=== PATIENT | female | born 1945 | race Caucasian/White ===

== ENCOUNTER 2018-08-19 16:12 | Observation (INO) | payer MEDICARE, BC, SELFPAY ==
[2018-08-19] VITALS (9 sets, daily range): BP systolic 114–163; BP diastolic 63–113; PULSE 67–98; RESP 16–19; TEMP 36.6–37.1; O2SAT 98–100; BMI 25.4; BMI 25.9
--- NOTE | 2018-08-19 16:26 | EKG12_ITS ---
Test Reason : CP Blood Pressure : / mmHG Vent. Rate : 087 BPM Atrial Rate : 087 BPM P-R Int : 134 ms QRS Dur : 078 ms QT Int : 368 ms P-R-T Axes : 051 -13 026 degrees QTc Int : 442 ms Normal sinus rhythm Normal ECG Confirmed by MICHELLE ORTIZ, REUBEN ([id number]), editor in chief FLORY BLISS ([id number]) on 08/22/2018 3:02:01 PM Referred By: Venus Birmingham Confirmed By:REUBEN MARTINEZ MD
--- NOTE | 2018-08-19 16:35 | RAD_ITS ---
STUDY: X-RAY CHEST REASON FOR EXAM: Female, 73 years old. Chest pain and cough TECHNIQUE: PA and 2 lateral views of the chest. COMPARISON: 2010 FINDINGS: EKG leads overlie the chest The lungs are clear and expanded. There is no demonstrated pleural abnormality. Normal size heart. Normal mediastinum and kacie. Normal visualized pulmonary arteries. Normal visualized aortic arch and descending thoracic aorta. Normal visualized thoracic spine. Normal visualized ribs, clavicles, and shoulders. There is no demonstrated abnormality of the visualized soft tissue structures of the upper abdomen. RAD/Chest PA and Lateral IMPRESSION: No acute pulmonary process Electronically Signed: Jose Ramon Graham MD at 16:54 EDT , Service support ,
[2018-08-19] MEDS: Aspirin 81 MG TAB.CHEW 324 MG PO (16:53)
[2018-08-19 17:01] LABS: Absolute Lymphocyte Count 1.94 X10^3/ul (0.83-4.51); Absolute Neutrophil Count 8.8 X10^3/uL (2.0-7.7); Basophil# 0.03 X10^3/uL; Basophil% 0.3 % (0-1); Eosinophil# 0.02 X10^3/uL; Eosinophils% 0.2 % (0-5); Hematocrit 45.2 % (37-47); Lymphocyte # 1.94 X10^3/ul (4.0); Lymphocyte % 17.1 % (19-41); Mean Corp Hgb Conc 33.2 g/gl (32-36); Mean Corpuscular Hgb 31.5 pg (27.0-32.0); Mean Platelet Vol. 10.4 fl (6.2-12.0); Monocyte# 0.51 X10^3/uL; Monocyte% 4.5 % (0-10); Neutrophil # 8.83 X10^3/uL (2.7-7.7); Neutrophil % 77.5 % (47-70); Platelet Count 265 K/mm3 (150-450); RBC Distribution Width CV 14.4 % (11.6-14.6); RBC Distribution Width SD 50.2 fl (35.1-43.9); Red Blood Count 4.76 M/mm3 (4.2-5.4); White Blood Count 11.4 K/mm3 (4.4-11.0)
[2018-08-19 17:02] LABS: POSITIVE COUNT NO; POSITIVE DIFFERENTIAL NO; POSITIVE MORPHOLOGY NO
--- NOTE | 2018-08-19 17:15 | ED.DCSUM_ITS ---
- ER Visit Summary Date of Service: 08/19/18 Chief Complaint: Chest pain History of Present Illness: The patient is a 73 F presenting for evaluation secondary to chest pain. 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 Patient reports that she chr onically deals with pain between her shoulder blades. She reports that has been going on for quite some time and she basically ignores it. However, since this morning the patient states that she has had a heaviness in her chest that is associated with worsening with exertion and shortness of breath. Patient does also endorse that she has had a cough recently that is intermittently productive of sputum denies any presence of fevers. She denies any other cardiovascular risk factors, her last stress test was in the distant past, and she denies any DVT or PE risk factors. Review of systems otherwise negative. Physical Examination: Vital signs are within normal limits, patient is afebrile. General: Patient is well-nourished well-developed and in no acute distress. Head: Normocephalic, atraumatic Eyes: Pupils equal round and reactive bilaterally, extra occular motion intact bialterally ENT: Moist mucous membranes Neck: Supple, no lymphadenopathy, no JVD, no meningismus CVS: Heart regular rate and rhythm, no murmurs, rubs or gallops, radial pulses 2+ bilaterally Resp: Respirations nondistressed, lung sounds clear bilaterally Abdomen: Soft, nontender, nondistended, no palpable masses, normal bowel sounds Back: Nontender Extremities: Nontender, atraumatic, active full range of motion, no peripheral edema Skin: warm, no rashes, no petechia Neuro: Alert and oriented x 4, CN 2-12 intact, no lateralizing neurological defecits Psyc: Normal affect Test Results: EKG shows sinus rate of [address] segments, normal T waves, no evidence of acute ischemia or arrhythmia. CBC chemistry and troponin are unremarkable. Chest x-ray by my personal and radiology review is found to be negative. Emergency Department Course and Treatment: Patient presented for evaluation secondary to chest pain. Workup was negative as noted above, she was given aspirin and nitroglycerin in the emergency apartment and did have improvement of her pain. Patient's heart score is 5, I do believe that she requires admission for provocative testing. I discussed this with the hospitalist and the patient will be admitted. Disposition: Admission Impression: 1. Chest pain This note was generated with [employer] dictation software. It may contain incorrect words, spelling, and punctuation that were not noted in review of the chart prior to signing ED Disposition - Plan for ED Patient: Chief Complaint: Chest Pain Referrals: Kasey Bashir MD [Primary Care Provider] -
[2018-08-19 17:17] LABS: Anion Gap 8 (5-15); BUN 19 mg/dL (7-18); BUN/Creat Ratio 19.2 RATIO (10-20); Calcium,Total 8.8 mg/dL (8.5-10.1); Chloride 108 mmol/L (98-107); Creatinine, Serum 0.99 mg/dL (0.55-1.02); EST Glomerular Filtration Rate 59 mL/min (>60); Est Glom Filt Rate - Afr Amer 71 mL/min (>60); Estimated Creatinine Clearance 47.03 ml/min; Glucose 97 mg/dL (74-106); Potassium 4.1 mmol/L (3.5-5.1); Sodium Level 141 mmol/L (136-145)
--- NOTE | 2018-08-19 17:45 | HP.PCM_ITS ---
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 She is admitted by the ED on 08/19/2018 with complaint of chest pain was started on day of admission. Pain was heavy type pressure in her chest, left-sided, rated 6 out of 10, nonradiating, with no aggravating or relieving factors. It was worsened by exertion was no relieved by rest. She denied any associated increased palpitations, diaphoresis or shortness of breath. She has not had pain like this in the past but says she has been experiencing pain between his shoulder blades for quite a while, cannot quantify exactly how long it has been going on for. 12 point review of systems is otherwise negative. In the ED, vitals were temperature of 98.7 Fahrenheit, blood pressure 114/103, pulse rate of 86 and respiratory rate of 16. She was saturating at 100% on room air. BMP was unremarkable and CBC was unremarkable for WBC of 11.4 which is likely due to steroid she was taking. Initial troponin was negative. Chest x-ray showed no acute cardiopulmonary process. She is been admitted to be managed for chest pain rule out. 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 History of pituitary tumor (Chronic) with Resection Glucocorticoid deficiency (Chronic) History of gastroesophageal reflux (GERD) (Chronic) Benign essential hypertension (Chronic) Allergies Penicillins [PCN] Adverse Reaction (Verified 08/19/18 16:15) Hives rofecoxib [From Vioxx] Adverse Reaction (Verified 08/19/18 16:15) Nausea/Vom/Diarrhea Home Medications: Ambulatory Orders Medication Instructions Recorded Calcium Carbonate [Calcium] 600 mg PO DAILY 08/19/18 Cholecalciferol (Vitamin D3) 2,000 unit PO DAILY 08/19/18 [D3-2000] Cyanocobalamin 1 tab PO DAILY 08/19/18 Enalapril Maleate [Vasotec] 1.25 mg PO DAILY 08/19/18 Levothyroxine Sodium [Levoxyl] 12.5 mcg PO DAILY 08/19/18 Multivit-Min/Iron/Folic/Lutein 1 each PO DAILY 08/19/18 [Centrum Silver Women Tablet] Omeprazole 20 mg PO PRN PRN 08/19/18 Prednisone 4 mg PO DAILY 08/19/18 Raloxifene HCl [Evista] 60 mg PO DAILY 08/19/18 Surgical History: appendectomy, - - pituitary surgery Psychiatric History: No pertinent psych hx COMMODITY SPECIALIST History: No pertinent COMMODITY SPECIALIST history Lives: Spouse/ Significant Other Smoking Status: Never smoker Alcohol: None Drugs: None - *Family History Maternal History Items: Hypertension Paternal History Items: No pertinent history Review of Systems Constitutional: Denies: Chills, Fever, Malaise, Weakness, Weight Change Eyes: Denies: Blurred vision HEENT: Denies: Head Aches, Sinus Congestion, Sinus Drainage Cardiovascular: Reports: Chest Pain, Chest Pressure, Edema. Denies: Chest Tightness, Orthopnea, Palpitations, Paroxysmal Noc. Dyspnea, Syncope Respiratory: Denies: Cough, Shortness of Breath, Shortness of breath at rest, Sputum production Gastrointestinal: Denies: Abdominal Pain, Constipation, Diarrhea, Nausea, Vomiting Genitourinary: Denies: Dysuria Musculoskeletal: Denies: Joint Pain, Joint Tenderness Skin: Denies: Rash, Wounds Neurological: Denies: Numbness, Tingling, Focal weakness Psychiatric: Denies: Anxiety, Depression, Homicidal Ideations, Suicidal Ideations Hematologic/ Lymphatic: Denies: Easy Bruising, Easy Bleeding VTE Information - Inpt Only VTE Present on Admission: No VTE Mechan Device Prophylaxis: None VTE Pharm Prophylaxis ordered?: Yes Patient Problems: Active and Suspected Problems Chest pain (Acute) - Physical Exam General: Alert, Oriented x3, Cooperative, No apparent distress HEENT: Atraumatic, PERRLA, EOMI, Normocephalic Oral: Moist Mucosa Neck: Supple, No JVD, Negative Carotid Bruits Lungs: Clear to auscultation, Normal air movement, No rhonchi, No wheeze Cardiovascular: Regular rate, Regular Rhythm, Normal S1, Normal S2, No murmurs Abdomen: Bowel Sounds Present, Soft, Non Tender, Non-Distended, No Hepato- splenomegaly Extremities: No clubbing, No cyanosis, No edema, Capillary Refill Less than 3 Seconds Skin: No rashes, No breakdown Musculoskeletal: No Tenderness to Palpation of Joints or Extremities Lymphatic: No Cervical, Supraclavicular, or Inguinal Adenopathy Neurological: Cranial nerves II-XII grossly intact, Neuro grossly intact, Motor Exam 5/5 strength throughout Psych/Mental Status: Normal Affect, Appropriate, Alert and oriented to time, place, person, mood and affect Vital Signs Temp Pulse Resp BP Pulse Ox 98.7 F 86 16 114/103 H 100 08/19/18 16:12 08/19/18 17:03 08/19/18 17:03 08/19/18 17:03 08/19/18 16:26 Oxygen Delivery Method Room Air Weight: 126 lb Body Mass Index (BMI) 25.4 Laboratory Tests Past 24 Hrs 08/19/18 08/19/18 16:30 16:30 WBC 11.4 H RBC 4.76 Hgb 15.0 Hct 45.2 MCV 95.0 MCH 31.5 MCHC 33.2 RDW 14.4 RDW Differential 50.2 H Plt Count 265 MPV 10.4 Immature Gran % (Auto) 0.400 Neut % (Auto) 77.5 H Lymph % (Auto) 17.1 L [place] % (Auto) 4.5 Eos % (Auto) 0.2 Baso % (Auto) 0.3 Absolute Neuts (auto) 8.8 H Absolute Lymphs (auto) 1.94 Total Counted Not Reportable Sodium 141 Potassium 4.1 Chloride 108 H Carbon Dioxide 25.0 Anion Gap 8 BUN 19 H Creatinine 0.99 Estim Creat Clear Calc 47.03 Est GFR (MDRD) Af Amer 71 Est GFR (MDRD) Non-Af 59 L BUN/Creatinine Ratio 19.2 Glucose 97 Calcium 8.8 Troponin I < 0.015 Diagnostic Data Chest X-Ray 08/19/18 16:35 IMPRESSION: No acute pulmonary process Electronically Signed: Jose Ramon Graham MD at 16:54 EDT , Service support , Assessment/Plan All Active Problems Chest pain (Acute) 23-year-old female presenting with a complaint of chest pain of one days duration. 1. Atypical chest pain * no significant cardiac history * EKG negative. Troponin x 1 negative * admit to PCU with telemetry * aspirin 81mg daily. * check lipid panel and A1C * SL nitroglycerin prn * cycle troponin * stress echocardiogram in the morning 2. Hypertension * poorly controlled * on enalapril 1.25mg daily; zulema monitor BP and adjust as needed * 3. 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 * on vitamin D3 and raloxifene due to osteoporosis * GERD: on omeprazole DVT prophylaxis: heparin GI prophylaxis: PPI CODE STATUS: Full code. * Patient counseled extensively about different types of CODE STATUS and counseled about different between full code, DNR CCA and DNR CCA patient elects to be full code. Total xxgo-to-[id number] time 17 minutes. Code Visit OBSV E&M: 48687 Initial observation care L2 Procedures: 15603 Advncd Care Plan 30 Min
--- NOTE | 2018-08-19 18:15 | EKG12_ITS ---
Test Reason : ADMIT Blood Pressure : / mmHG Vent. Rate : 069 BPM Atrial Rate : 069 BPM P-R Int : 140 ms QRS Dur : 078 ms QT Int : 404 ms P-R-T Axes : 060 -04 035 degrees QTc Int : 432 ms Normal sinus rhythm Normal ECG When compared with ECG of 19-AUG-2018 16:19, MANUAL COMPARISON REQUIRED, DATA IS UNCONFIRMED Confirmed by AKBAR ORTIZ, ROBIN ([id number]), make up editor FLORY BLISS ([id number]) on 08/23/2018 2:54:19 PM Referred By: Venus Birmingham Confirmed By:ROBIN WEBBER MD
[2018-08-19 22:48] LABS: Hemoglobin A1c 5.7 % (4.2-6.3)
[2018-08-20 03:00] VITALS: PULSE 67
[2018-08-20 03:48] VITALS: O2SAT 98
[2018-08-20 03:50] VITALS: BP 143/62; PULSE 73; RESP 16; TEMP 36.5; O2SAT 98
[2018-08-20] MEDS: Levothyroxine 25 MCG TABLET 12.5 MCG PO (05:36)
[2018-08-20] MEDS: Aspirin 81 MG TAB.CHEW PO (05:36)
--- NOTE | 2018-08-20 05:55 | EKG12_ITS ---
Test Reason : AM EKG Blood Pressure : / mmHG Vent. Rate : 067 BPM Atrial Rate : 067 BPM P-R Int : 152 ms QRS Dur : 072 ms QT Int : 410 ms P-R-T Axes : 057 -10 040 degrees QTc Int : 433 ms Normal sinus rhythm Normal ECG When compared with ECG of 19-AUG-2018 18:29, MANUAL COMPARISON REQUIRED, DATA IS UNCONFIRMED Confirmed by AKBAR ORTIZ, ROBIN ([id number]), commissioning editor FLORY BLISS ([id number]) on 08/23/2018 2:51:23 PM Referred By: Venus Birmingham Confirmed By:ROBIN WEBBER MD
[2018-08-20 06:34] LABS: Absolute Lymphocyte Count 2.49 X10^3/ul (0.83-4.51); Absolute Neutrophil Count 5.7 X10^3/uL (2.0-7.7); Basophil# 0.04 X10^3/uL; Basophil% 0.4 % (0-1); Eosinophil# 0.17 X10^3/uL; Eosinophils% 1.9 % (0-5); Hematocrit 42.7 % (37-47); Hemoglobin 14.3 g/dl (12.0-15.0); Lymphocyte # 2.49 X10^3/ul (4.0); Lymphocyte % 27.2 % (19-41); Mean Corp Hgb Conc 33.5 g/gl (32-36); Mean Corpuscular Hgb 31.9 pg (27.0-32.0); Mean Corpuscular Volume 95.3 fL (81-99); Mean Platelet Vol. 10.5 fl (6.2-12.0); Monocyte% 7.7 % (0-10); Neutrophil # 5.68 X10^3/uL (2.7-7.7); Platelet Count 238 K/mm3 (150-450); RBC Distribution Width CV 14.6 % (11.6-14.6); RBC Distribution Width SD 49.3 fl (35.1-43.9); Red Blood Count 4.48 M/mm3 (4.2-5.4); White Blood Count 9.2 K/mm3 (4.4-11.0)
[2018-08-20 06:35] LABS: Prothrombin Time (Protime)PT. 13.4 SECONDS (11.7-14.9)
[2018-08-20 06:36] LABS: Partial Thromboplast Time 25.4 Seconds (24.1-36.2)
[2018-08-20 06:43] LABS: POSITIVE COUNT NO; POSITIVE DIFFERENTIAL NO; POSITIVE MORPHOLOGY NO
[2018-08-20 06:51] LABS: Anion Gap 5 (5-15); BUN 15 mg/dL (7-18); BUN/Creat Ratio 18.7 RATIO (10-20); Calcium,Total 8.4 mg/dL (8.5-10.1); Chloride 111 mmol/L (98-107); Cholesterol 161 mg/dL (200); EST Glomerular Filtration Rate 75 mL/min (>60); Est Glom Filt Rate - Afr Amer 91 mL/min (>60); Estimated Creatinine Clearance 59.26 ml/min; Glucose 76 mg/dL (74-106); High Density Lipoprotein 56 mg/dL; Potassium 3.7 mmol/L (3.5-5.1); Sodium Level 144 mmol/L (136-145); Triglycerides 86 mg/dL; Very Low Density Lipoprotein 17 mg/dL (5-40)
[2018-08-20 07:06] VITALS: PULSE 60
[2018-08-20] MEDS: predniSONE 1 MG Tablet 4 MG PO (08:26)
[2018-08-20] MEDS: Raloxifene HCl 60 MG Tablet PO (08:26)
--- NOTE | 2018-08-20 09:50 | NURSING ---
pt declines having vital signs taken
--- NOTE | 2018-08-20 11:06 | DCINST_ITS ---
- Discharge Diagnoses Current Active Problems: Current Active and Chronic Problems Chest pain (Acute) You will use the following diet at home:: Cardiac Your food should be the consistency of: Regular Your liquids should be the consistency of: Regular/Thin Discharge Activity: Return to Normal Activity Weight Bearing Status: Weight bearing as tolerated Call your doctor if you observe: Chest pain Instructions: What Is Angina?, Fast-Acting Nitroglycerin Additional Instructions: To have stress echocardiogram on 08/22/18. Patient to call stress test lab at [facility] for time. Allergies/Adverse Reactions: Allergies Penicillins [PCN] Allergy (Verified 08/19/18 18:16) Hives rofecoxib [From Vioxx] Adverse Reaction (Verified 08/19/18 16:15) Nausea/Vom/Diarrhea Medications to take at Discharge Calcium Carbonate [Calcium] 600 mg PO DAILY 08/19/18 Cholecalciferol (Vitamin D3) [D3-2000] 2,000 unit PO DAILY 08/19/18 Cyanocobalamin 1 tab PO DAILY 08/19/18 Enalapril Maleate [Vasotec] 1.25 mg PO DAILY 08/19/18 Levothyroxine Sodium [Levoxyl] 12.5 mcg PO DAILY 08/19/18 Multivit-Min/Iron/Folic/Lutein [Centrum Silver Women Tablet] 1 each PO DAILY 08/19/18 Omeprazole 20 mg PO PRN PRN 08/19/18 Prednisone 4 mg PO DAILY 08/19/18 Raloxifene HCl [Evista] 60 mg PO DAILY 08/19/18 Aspirin [Aspirin EC] 81 mg PO DAILY #30 tablet. 08/20/18 Nitroglycerin 0.4 mg SL PRN PRN #30 tab.subl 08/20/18 The following prescriptions were given: Aspirin [Aspirin EC] 81 mg PO DAILY #30 tablet. Nitroglycerin 0.4 mg SL PRN PRN #30 tab.subl PRN Reason: Cardiac/Chest Pain Orders to be completed after discharge: Stress Test Echo W/Contrast [ECHO] Time Frame: 08/22/18, Location: None Selected Primary Care Physician: Kasey Bashir MD [Primary Care Provider] - Please follow up with your Primary Care Physician in: one week Test Results: Test results from this visit will be discussed in further detail at your follow- up appointment, if applicable.
--- NOTE | 2018-08-20 11:11 | PCM.DC.SUM ---
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 She was admitted by the ED on 08/19/2018 with complaint of chest pain which started on day of admission. It was pressure-like, left-sided, radiated 10 out of 10, nonradiating with no aggravating or relieving factors. Chest x-ray showed a acute cardiopulmonary process and EKG showed no acute ST changes. She was admitted and managed for chest pain. Patient was due to have a stress echocardiogram on 08/20/2018. However since was a weekend, due to unforeseen circumstances the stress echo is when the been done that day. Patient insisted on being discharged home I did not want to stay until 08/22/2018 for stress echo to be done. Patient was discharged home on 08/20/2018 with a prescription for p.o. aspirin 81 mg daily and sublingual nitroglycerin as needed. She was counseled to report to the ED if chest pain recurred and did not resolve with aspirin 2. Patient was given a prescription for stress echocardiogram to be done on 08/22/2018. She is to call the stress lab at [facility] for an appointment on 08/22/2018. Patient seen and examined prior to discharge. She had no complaints. Chest pain did occur overnight and states she just had a mild pain between his shoulder blades which is chronic. She denied any fever chills, any cough or chest pain, shortness of breath, abdominal pain, any diarrhea vomiting. 12 point review of systems is otherwise negative. Labs and vitals reviewed. On examination Vitals: Vital Signs Height 4 ft 11 in Weight: 128 lb 4.944 oz Weight in Pounds 128.3 lbs Pulse Ox 98 Temperature 97.7 F Pulse Rate 60 Respiratory Rate 16 Blood Pressure [2nd BP] 163/75 Blood Pressure 143/62 Blood Pressure Position [2nd Semi-Fowlers BP] Blood Pressure Position Semi-Fowlers General: Alert, Oriented x3, Cooperative, No apparent distress HEENT: Atraumatic, PERRLA, EOMI, Normocephalic Oral: Moist Mucosa Neck: Supple, No JVD, Negative Carotid Bruits Lungs: Clear to auscultation, Normal air movement, No rhonchi, No wheeze Cardiovascular: Regular rate, Regular Rhythm, Normal S1, Normal S2, No murmurs Abdomen: Bowel Sounds Present, Soft, Non Tender, Non-Distended, No Hepato-splenomegaly Extremities: No clubbing, No cyanosis, No edema, Capillary Refill Less than 3 Seconds Skin: No rashes, No breakdown Musculoskeletal: No Tenderness to Palpation of Joints or Extremities Lymphatic: No Cervical, Supraclavicular, or Inguinal Adenopathy Neurological: Cranial nerves II-XII grossly intact, Neuro grossly intact, Motor Exam 5/5 strength throughout Psych/Mental Status: Normal Affect, Appropriate, Alert and oriented to time, place, person, mood and affect Plan as stated above. She is to follow up with her PCP in one week and do the stress echocardiogram on 08/22/18. [] Discharge Diet: Low fat/ Low Cholesterol Discharge Activity: Return to Normal Activity Weight Bearing Status: Weight bearing as tolerated Call your doctor if you observe: Chest pain Home Medications: Medications to take at Discharge Calcium Carbonate [Calcium] 600 mg PO DAILY 08/19/18 Cholecalciferol (Vitamin D3) [D3-2000] 2,000 unit PO DAILY 08/19/18 Cyanocobalamin 1 tab PO DAILY 08/19/18 Enalapril Maleate [Vasotec] 1.25 mg PO DAILY 08/19/18 Levothyroxine Sodium [Levoxyl] 12.5 mcg PO DAILY 08/19/18 Multivit-Min/Iron/Folic/Lutein [Centrum Silver Women Tablet] 1 each PO DAILY 08/19/18 Omeprazole 20 mg PO PRN PRN 08/19/18 Prednisone 4 mg PO DAILY 08/19/18 Raloxifene HCl [Evista] 60 mg PO DAILY 08/19/18 Aspirin [Aspirin EC] 81 mg PO DAILY #30 tablet. 08/20/18 Nitroglycerin 0.4 mg SL PRN PRN #30 tab.subl 08/20/18 Following Prescrptions Were Given to Patient: Aspirin [Aspirin EC] 81 mg PO DAILY #30 tablet. Nitroglycerin 0.4 mg SL PRN PRN #30 tab.subl PRN Reason: Cardiac/Chest Pain Other Amb Orders: Stress Test Echo W/Contrast [ECHO] Time Frame: 08/22/18, Location: None Selected Primary Care Physician: Kasey Bashir MD [Primary Care Provider] - Please follow up with your Primary Care Physician in: one week Patient Instructions: What Is Angina?, Fast-Acting Nitroglycerin Disposition: Home Minutes spent on discharge:: 35 Patient Condition:: Stable Medical Necessity - Tobacco Use Smoking Status: Never smoker Meaningful Use Info Meaningful Use Diagnoses (Choose all that apply): None applicable Code Visit Inpatient E&M: 88167 Disch Hosp
== END 2018-08-20 11:10 | disposition home or self-care (01) ==
LOC: ED 17:11 → PCU 17:59
PROVIDERS: Admitting Provider Student in an Organized Health Care Education/Training Program; Emergency Provider Emergency Medicine; Family Provider Internal Medicine; PCP Internal Medicine; Referring Provider Student in an Organized Health Care Education/Training Program; Visit Provider Student in an Organized Health Care Education/Training Program
DX: R07.89 Other chest pain (principal); E23.0 Hypopituitarism; K21.9 Gastro-esophageal reflux disease without esophagitis; I10 Essential (primary) hypertension; Z79.899 Other long term (current) drug therapy
CPT/HCPCS: 36415; 71046; 80048; 80061; 83036; 84484; 85025; 85610; 85730; 93005; 99218; 99283; G0378

== ENCOUNTER → 2018-08-23 12:28 | Outpatient (CLI) | payer MEDICARE, BC, SELFPAY ==
--- NOTE | 2018-08-23 12:31 | STE_ITS ---
Reason For Study: CHEST PAIN Stress Results Protocol: Stress Echocardiogram Maximum Predicted HR: 149 bpm Target HR: 127 bpm% Maximum Pr edicted HR: 109 % DurationHeart Rate Stage (mm:ss) (bpm) BP BASELINE 75 158/78 ALEXA PROTOCOL- STAGE 1 3:00 12 9 150/80 ALEXA PROTOCOL- STAGE 2 3:00 16 2 154/82 RECOVERY 99 136/78 Stress Duration: 6:00 mm:ss Maximum Stress HR: 162 bpmM ETS: 7 Baseline Echocardiogram Findings Stress Echo Wall motion Data Resting WMIntermediate WMStress WM Resting Wall Motion Wall Motion Stress All segments Normal. All segments Hyperkinetic. Ejection Fraction 60 %. Ejection Fraction 75 %. Stress Results Heart rate response: appropriate Blood pressure response: resting hypertension - appropriate response Arrhythmias: none Functional capacity: good Stopped secondary to: dyspnea. EKG Data Baseline ECG: NSR. Exercise ECG: no obvious ECG changes. Symptoms with Stress No c/o chest discomfort with exercise / recovery. Interpretation Summary Negative (adequate) Stress Echocardiogram Negative (adequate) ECG ETT Ordering Physician: Kasey Bashir Referring Physician: Kasey Bashir Performed By: Mago He RDCS
== END ==
PROVIDERS: Family Provider Internal Medicine; PCP Internal Medicine; Referring Provider Internal Medicine; Visit Provider Internal Medicine
DX: R07.9 Chest pain, unspecified (principal); I10 Essential (primary) hypertension; E78.5 Hyperlipidemia, unspecified
CPT/HCPCS: 93017; 93350

== ENCOUNTER 2018-11-12 08:33 | Emergency (ER) | payer MEDICARE, BC, SELFPAY ==
[2018-11-12 08:36] VITALS: BP 135/79; PULSE 89; RESP 16; TEMP 36.5; O2SAT 100; BMI 25.6
--- NOTE | 2018-11-12 08:57 | ED.DCSUM_ITS ---
- ER Visit Summary Date of Service: 11/12/18 Chief Complaint: [Fever, rash] History of Present Illness: The patient is a 73 F [presents the emergency department with multiple complaints. Patient states that she started with fever 3 nights ago as well as chills and thought she was coming down with the flu. Patient just had an occasional cough. Patient noticed that yesterday she developed a pruritic rash. Patient seen at urgent care this morning and referred to the emergency department. Patient is complaining of feeling woozy at times and weak. Patient had low-grade fever yesterday. She denies any urinary symptoms currently but recently finished Macrobid for UTI. Patient also had surgery on her right thumb a week ago and had taken some [place] for the pain. Patient denies any ear pain or sore throat. She denies any abdominal pain. She is had some intermittent diarrhea but she states that she gets that from time to time due to her history of IBS. Patient denies any urinary symptoms currently.] Physical Examination: [HEENT-PERRLA, EOMI. Cranial nerves II through XII grossly intact. TMs clear. Mucous membranes moist. No adenopathy. Cardiovascular-regular rate and rhythm without murmur or ectopy Lungs-clear to auscultation, chest wall stable without crepitus or subcu emphysema Abdomen-normoactive bowel sounds, soft, nontender, no rebound or rigidity, no peritoneal signs. Skin exam-patient does have a erythematous macular rash diffuse and pruritic. N o petechiae or vesicles noted. Extremities-intact ?4, normal range of motion, normal pulses, atraumatic] Test Results: [CBC with differential obtained showed a white blood cell count of 9.0, hemoglobin 14, hematocrit 42, platelets 245. Chemistries unremarkable other than a slightly depressed potassium at 3.1. Urinalysis was normal. Chest x-ray showed some hyperinflation. Influenza screen was negative] Emergency Department Course and Treatment: [Patient received a liter normal same fluid bolus. Patient's rash I believe may be caused by 1 of her new medications either the Macrobid or the hydrocodone which she had been taken for pain. Patient is advised to avoid these in the future.] Treatment Plan: [Patient did not want anything for itching for home.] Disposition: [Discharged home in stable condition] Impression: [Viral syndrome Drug eruption rash] This note was generated with Dragon dictation software. It may contain incorrect words, spelling, and punctuation that were not noted in review of the chart prior to signing ED Disposition - Plan for ED Patient: Chief Complaint: General Illness Referrals: Kasey Bashir MD [Primary Care Provider] -
[2018-11-12] MEDS: 0.9% Normal Saline 1,000 ML 1000 ML IV (09:08)
[2018-11-12 09:11] LABS: Absolute Lymphocyte Count 0.89 X10^3/ul (0.83-4.51); Absolute Neutrophil Count 7.1 X10^3/uL (2.0-7.7); Basophil# 0.02 X10^3/uL; Basophil% 0.2 % (0-1); Eosinophils% 3.3 % (0-5); Hematocrit 42.1 % (37-47); Hemoglobin 14.1 g/dl (12.0-15.0); Lymphocyte # 0.89 X10^3/ul (4.0); Lymphocyte % 9.9 % (19-41); Mean Corp Hgb Conc 33.5 g/gl (32-36); Mean Corpuscular Hgb 31.3 pg (27.0-32.0); Mean Corpuscular Volume 93.3 fL (81-99); Mean Platelet Vol. 9.6 fl (6.2-12.0); Monocyte# 0.67 X10^3/uL; Monocyte% 7.5 % (0-10); Neutrophil # 7.08 X10^3/uL (2.7-7.7); Neutrophil % 78.8 % (47-70); Platelet Count 245 K/mm3 (150-450); RBC Distribution Width CV 14.1 % (11.6-14.6); RBC Distribution Width SD 48.3 fl (35.1-43.9); Red Blood Count 4.51 M/mm3 (4.2-5.4)
--- NOTE | 2018-11-12 09:11 | RAD_ITS ---
STUDY: X-RAY CHEST REASON FOR EXAM: Female, 73 years old. Fever, rash, cough TECHNIQUE: PA and lateral views of the chest. COMPARISON: 08/19/2018 FINDINGS: The lungs are clear but hyper expanded. There is no demonstrated pleural abnormality. Normal size heart. Normal mediastinum and kacie. Normal visualized pulmonary arteries. There is atherosclerotic calcification of the aortic arch with tortuosity. There is demineralization of the osseous structures. Normal visualized ribs, clavicles, and shoulders. There is no demonstrated abnormality of the visualized soft tissue structures of the upper abdomen. RAD/Chest PA and Lateral IMPRESSION: 1. Stable exam. No acute cardiopulmonary process. No airspace consolidation. 2. Hyperinflation suggesting chronic obstructive airway disease. Electronically Signed: Reuben Najera MD at 9:37 EST , Service support ,
[2018-11-12 09:12] LABS: POSITIVE COUNT NO; POSITIVE DIFFERENTIAL NO; POSITIVE MORPHOLOGY NO
[2018-11-12 09:24] LABS: Anion Gap 10 (5-15); BUN 16 mg/dL (7-18); BUN/Creat Ratio 17.1 RATIO (10-20); Calcium,Total 8.3 mg/dL (8.5-10.1); Chloride 107 mmol/L (98-107); Creatinine, Serum 0.94 mg/dL (0.55-1.02); EST Glomerular Filtration Rate 63 mL/min (>60); Est Glom Filt Rate - Afr Amer 76 mL/min (>60); Estimated Creatinine Clearance 49.92 ml/min; Glucose 105 mg/dL (74-106); Potassium 3.1 mmol/L (3.5-5.1); Sodium Level 140 mmol/L (136-145)
[2018-11-12 09:51] VITALS: BP 143/73; BP 147/80; BP 154/79; PULSE 83; PULSE 88; PULSE 93
[2018-11-12 10:04] LABS: Lactic Acid 2.7 mmol/L (0.4-2.0)
--- NOTE | 2018-11-12 10:04 | ED.RN ---
lactic acid result 2.8, physician notified
[2018-11-12 10:12] LABS: Bacteria 0 SEEN /hpf (None Seen); Color, Urine Yellow (Yellow); Glucose, Dipstick Normal (Normal); Ketone-Dipstick Negative (Negative); Leukocyte Esterase-Dipstick 25 /ul (Negative); Mucous, Urine 0 SEEN /hpf (<or=2+); Nitrite-Dipstick Negative (Negative); Occult Blood-Urine 50 /ul (Negative); Protein-Dipstick Negative (Negative); Red Blood Cells-Urine 0 SEEN /hpf (0-5); Specific Gravity, Urine 1.005 (1.002-1.030); Urine Bilirubin Dipstick Negative (Negative); Urine Clarity Clear (Clear); Urine Urobilinogen Normal (Normal); Urine pH 6.5 (5.0 - 8.0)
[2018-11-12 10:18] LABS: Squamous Epithelial Cells - UA 0-5 SEEN /hpf (5-10); White Blood Cells 0-5 SEEN /hpf (0-5)
[2018-11-12 10:31] VITALS: BP 116/75; PULSE 72; RESP 16; TEMP 36.6; O2SAT 97
[2018-11-12] MEDS: 0.9% Normal Saline 1,000 ML 999 ML IV (10:36)
--- NOTE | 2018-11-12 11:07 | ED.DEP ---
ED Disposition - Plan for ED Patient: Chief Complaint: General Illness Instructions: ED Viral Syndrome, ED Drug React Allergic Referrals: Kasey Bashir MD [Primary Care Provider] - 5-7 Days
[2018-11-12 11:28] VITALS: BP 163/71; PULSE 82; RESP 14; O2SAT 99
--- NOTE | 2018-11-12 11:29 | ED.RN ---
IV DC'ED, CATHETER INTACT, SMALL GAUZE DRESSING PLACED. DISCHARGE INSTRUCTIONS GIVEN TO AND REVIEWED WITH PATIENT, PATIENT DENIES QUESTIONS OR CONCERNS AND VOICES UNDERSTANDING OF DISCHARGE INSTRUCTIONS. PT AMBULATES OUT OF ROOM WITHOUT ISSUE.
[2018-11-12 13:05] LABS: Reflex Lactate? Y
== END 2018-11-12 11:29 | disposition home or self-care (01) ==
LOC: ED 09:06
PROVIDERS: Emergency Provider Emergency Medicine; Family Provider Internal Medicine; PCP Internal Medicine
DX: B34.9 Viral infection, unspecified (principal); L27.1 Localized skin eruption due to drugs and medicaments taken internally; T50.905A Adverse effect of unspecified drugs, medicaments and biological substances, initial encounter; Y92.9 Unspecified place or not applicable; R05 Cough; R53.1 Weakness; R50.9 Fever, unspecified; K58.9 Irritable bowel syndrome, unspecified; I10 Essential (primary) hypertension; Z87.440 Personal history of urinary (tract) infections; Z79.82 Long term (current) use of aspirin; Z79.899 Other long term (current) drug therapy
CPT/HCPCS: 71046; 80048; 81001; 83605; 85025; 87804; 96360; 96361; 99284; J7030; A4216

== ENCOUNTER 2018-11-20 07:04 | Emergency (ER) | payer MEDICARE, BC, SELFPAY ==
[2018-11-20 07:06] VITALS: BP 127/78; PULSE 94; RESP 17; TEMP 37.3; O2SAT 97; BMI 25.7
--- NOTE | 2018-11-20 07:26 | RAD_ITS ---
STUDY: X-RAY CHEST REASON FOR EXAM: Female, 73 years old. Fever, left flank pain, recent surgery. TECHNIQUE: Portable chest AP upright COMPARISON: 11/12/2018.. FINDINGS: The lungs are clear and expanded. Normal cardiomediastinal silhouette, kacie and pleural margins. No acute osseous or upper abdominal process. RAD/Chest 1 View (Portable) IMPRESSION: No acute cardiopulmonary process. Electronically Signed: Jacob Ramos MD at 8:44 EST Tel , Service support ,
--- NOTE | 2018-11-20 07:26 | EKG12_ITS ---
Test Reason : GENERAL ILLNESS Blood Pressure : / mmHG Vent. Rate : 087 BPM Atrial Rate : 087 BPM P-R Int : 134 ms QRS Dur : 082 ms QT Int : 356 ms P-R-T Axes : 063 004 048 degrees QTc Int : 428 ms Poor data quality, interpretation may be adversely affected Normal sinus rhythm Normal ECG Confirmed by MICHELLE ORTIZ, REUBEN ([id number]), editorial director FLORY BLISS ([id number]) on 11/23/2018 2:35:11 PM Referred By: VI Confirmed By:REUBEN MARTINEZ MD
--- NOTE | 2018-11-20 07:27 | CT_ITS ---
STUDY: CT ABDOMEN AND PELVIS WITHOUT CONTRAST REASON FOR EXAM: Female, 73 years old. LEFT SIDE/BACK PAIN X 3 DAYS, CHOLECYSTECTOMY, TUBAL LIGATION, APPENDECTOMY. RADIATION DOSAGE (If Supplied By Facility): CTDIvol = ( 6.19 ) mGy, DLP = ( 278.50 ) mGycm TECHNIQUE: Transaxial images were obtained from the dome of the diaphragm to the symphysis pubis without oral contrast, and without intravenous contrast. Sagittal and coronal images were reconstructed. Individualized dose optimization techniques were used for this CT. COMPARISON: None. FINDINGS: The visualized lung bases are unremarkable. The visualized portions of the heart are within normal limits. Normal liver. There is non-visualization of the gallbladder, which may be secondary to either contraction or a prior cholecystectomy. Normal spleen. Normal pancreas. Normal bilateral adrenal glands. Normal right kidney. Normal left kidney. Normal visualized stomach. Normal small intestine. There are multiple colonic diverticula consistent with diverticulosis. There is non-visualization of the appendix. There is diffuse atherosclerotic calcification of the abdominal aorta, without a demonstrated aneurysm. Normal inferior vena cava. Normal retroperitoneum. Normal urinary bladder. Normal abdominal wall. There are diffuse degenerative changes of the visualized lumbar spine. CT/Abdomen/Pelvis without Cont IMPRESSION: No acute intra-abdominal abnormality. Electronically Signed: Pamella Zamora MD at 8:31 EST Tel , Service support ,
--- NOTE | 2018-11-20 07:28 | ED.VISSUMM ---
- ER Visit Summary Date of Service: 11/20/18 Chief Complaint: Fever diarrhea History of Present Illness: The patient is a 73 F who presents with quite a few symptoms, fever, loose stools for 10 days, left lower abdominal pain and left-sided flank pain, cough congestion and myalgias. She was treated with nitrofurantoin for UTI and developed a reaction. Patient denies chest pain. Pain is mild to moderate relieved with Tylenol. No confusion no neck pain or headache. No vision changes. Physical Examination: Not appear in acute distress. She is talking to me comfortably. Slightly dry mucous membranes, no obvious facial deformity No C-spine tenderness supple neck. Regular rate and rhythm without any obvious murmurs Clear lungs bilaterally speaking in full sentences without any obvious respiratory distress Abdomen soft with mild left lower abdominal pain with no guarding or rebound She does have some tenderness right below her left CVA region worse with twisting and bending. She has no LS spine or thoracic spine tenderness. She has a right wrist cast from recent surgery, otherwise she moves all other extremities without any difficulty or pain. Skin does not show any obvious rashes or lesions, no trauma. Alert oriented ?3 with no gross focal deficit Emergency Department Course and Treatment: An unremarkable workup. Blood cultures are pending she could not give me any stool samples. She appears well does not have leukocytosis. Her influenza is negative her chest x-ray is negative, she appears quite well she may have a viral illness. She is to follow-up with her PCP. I did have blood cultures pending and per hospital protocol should be called if anything is positive. Back pain is not midline thus I am not worried about spinal infection. At this time she appears well nontoxic and I believe is safe for discharge. Disposition: Discharge stable condition Impression: Diarrhea, subjective fever This note was generated with [employer] dictation software. It may contain incorrect words, spelling, and punctuation that were not noted in review of the chart prior to signing ED Disposition - Plan for ED Patient: Disposition: Home or Assisted Living Chief Complaint: Diarrhea Instructions: ED Diarrhea Viral Referrals: Kasey Bashir MD [Primary Care Provider] - 3-5 Days
--- NOTE | 2018-11-20 07:31 | ED.DCSUM_ITS ---
- ER Visit Summary Date of Service: 11/20/18 Chief Complaint: Fever diarrhea History of Present Illness: The patient is a 73 F who presents with quite a few symptoms, fever, loose stools for 10 days, left lower abdominal pain and left- sided flank pain, cough congestion and myalgias. She was treated with ni trofurantoin for UTI and developed a reaction. Patient denies chest pain. Pain is mild to moderate relieved with Tylenol. No confusion no neck pain or headache. No vision changes. Physical Examination: Not appear in acute distress. She is talking to me comfortably. Slightly dry mucous membranes, no obvious facial deformity No C-spine tenderness supple neck. Regular rate and rhythm without any obvious murmurs Clear lungs bilaterally speaking in full sentences without any obvious respiratory distress Abdomen soft with mild left lower abdominal pain with no guarding or rebound She does have some tenderness right below her left CVA region worse with twisting and bending. She has no LS spine or thoracic spine tenderness. She has a right wrist cast from recent surgery, otherwise she moves all other extremities without any difficulty or pain. Skin does not show any obvious rashes or lesions, no trauma. Alert oriented ?3 with no gross focal deficit Emergency Department Course and Treatment: An unremarkable workup. Blood cultures are pending she could not give me any stool samples. She appears well does not have leukocytosis. Her influenza is negative her chest x-ray is negative, she appears quite well she may have a viral illness. She is to follow-up with her PCP. I did have blood cultures pending and per hospital protocol should be called if anything is positive. Back pain is not midline thus I am not worried about spinal infection. At this time she appears well nontoxic and I believe is safe for discharge. Disposition: Discharge stable condition Impression: Diarrhea, subjective fever This note was generated with [employer] dictation software. It may contain incorrect words, spelling, and punctuation that were not noted in review of the chart prior to signing ED Disposition - Plan for ED Patient: Disposition: Home or Assisted Living Chief Complaint: Diarrhea Instructions: ED Diarrhea Viral Referrals: Kasey Bashir MD [Primary Care Provider] - 3-5 Days
[2018-11-20 07:42] VITALS: BP 141/66; PULSE 81; RESP 18; TEMP 37.3; O2SAT 100
[2018-11-20] MEDS: Morphine 2 MG/ML Syringe IV (07:42)
[2018-11-20] MEDS: 0.9% Normal Saline 1,000 ML 250 ML IV (07:42)
[2018-11-20] MEDS: Ondansetron 4 MG/2 ML Vial IV (07:42)
[2018-11-20 07:48] LABS: Absolute Lymphocyte Count 2.15 X10^3/ul (0.83-4.51); Basophil# 0.04 X10^3/uL; Basophil% 0.4 % (0-1); Eosinophil# 0.18 X10^3/uL; Eosinophils% 1.7 % (0-5); Hematocrit 37.5 % (37-47); Hemoglobin 12.6 g/dl (12.0-15.0); Lymphocyte # 2.15 X10^3/ul (4.0); Lymphocyte % 19.8 % (19-41); Mean Corp Hgb Conc 33.6 g/gl (32-36); Mean Corpuscular Hgb 31.4 pg (27.0-32.0); Mean Corpuscular Volume 93.5 fL (81-99); Mean Platelet Vol. 9.5 fl (6.2-12.0); Monocyte# 1.25 X10^3/uL; Monocyte% 11.5 % (0-10); Neutrophil # 7.04 X10^3/uL (2.7-7.7); Neutrophil % 64.7 % (47-70); Platelet Count 254 K/mm3 (150-450); Red Blood Count 4.01 M/mm3 (4.2-5.4); White Blood Count 10.9 K/mm3 (4.4-11.0)
[2018-11-20 07:57] LABS: POSITIVE COUNT NO; POSITIVE DIFFERENTIAL NO; POSITIVE MORPHOLOGY NO
[2018-11-20 08:16] LABS: ALB/GLOB Ratio 0.8 RATIO (0.9-2.4); AST(SGOT) 14 U/L (15-37); Alanine Aminotransfer ALT/SGPT 20 U/L (13-56); Albumin, Serum 2.8 g/dL (3.2-5.0); Alkaline Phosphatase 80 U/L (45-117); Anion Gap 9 (5-15); BUN 12 mg/dL (7-18); BUN/Creat Ratio 11.4 RATIO (10-20); Chloride 108 mmol/L (98-107); Creatinine, Serum 1.05 mg/dL (0.55-1.02); EST Glomerular Filtration Rate 55 mL/min (>60); Est Glom Filt Rate - Afr Amer 66 mL/min (>60); Estimated Creatinine Clearance 44.76 ml/min; Globulin 3.3 g/dL (2.2-4.2); Glucose 85 mg/dL (74-106); International Normalized Ratio 1.1; Potassium 3.5 mmol/L (3.5-5.1); Protein, Total 6.1 g/dL (6.4-8.2); Prothrombin Time (Protime)PT. 14.4 SECONDS (11.7-14.9); Sodium Level 139 mmol/L (136-145)
[2018-11-20 08:18] LABS: Partial Thromboplast Time 31.5 Seconds (24.1-36.2)
[2018-11-20 08:29] LABS: Lactic Acid 2.3 mmol/L (0.4-2.0)
--- NOTE | 2018-11-20 08:30 | ED.RN ---
LACTIC 2.[address] DR PEACE AWARE
[2018-11-20 08:35] VITALS: BP 112/64; PULSE 77; RESP 24; TEMP 37.1; O2SAT 100
[2018-11-20 08:56] LABS: Bacteria 0 SEEN /hpf (None Seen); Mucous, Urine 0 SEEN /hpf (<or=2+); Red Blood Cells-Urine 0 SEEN /hpf (0-5); White Blood Cells 0 SEEN /hpf (0-5)
[2018-11-20 08:57] LABS: Color, Urine Yellow (Yellow); Glucose, Dipstick Normal (Normal); Ketone-Dipstick Negative (Negative); Leukocyte Esterase-Dipstick Negative /ul (Negative); Nitrite-Dipstick Negative (Negative); Occult Blood-Urine 25 /ul (Negative); Protein-Dipstick Negative (Negative); Specific Gravity, Urine 1.005 (1.002-1.030); Urine Bilirubin Dipstick Negative (Negative); Urine Clarity Clear (Clear); Urine Urobilinogen Normal (Normal)
[2018-11-20 09:10] LABS: Squamous Epithelial Cells - UA 0-5 SEEN /hpf (5-10)
[2018-11-20 09:36] VITALS: BP 121/74; PULSE 77; RESP 23; O2SAT 99
[2018-11-20 11:40] LABS: Reflex Lactate? Y
== END 2018-11-20 09:43 | disposition home or self-care (01) ==
PROVIDERS: Emergency Provider Emergency Medicine; Family Provider Internal Medicine; PCP Internal Medicine
DX: R19.7 Diarrhea, unspecified (principal); R50.9 Fever, unspecified; J02.9 Acute pharyngitis, unspecified; R05 Cough; R10.32 Left lower quadrant pain; R09.81 Nasal congestion; R53.1 Weakness; M54.9 Dorsalgia, unspecified; I10 Essential (primary) hypertension; Z87.440 Personal history of urinary (tract) infections; Z79.899 Other long term (current) drug therapy
CPT/HCPCS: 36415; 71045; 74176; 80053; 81001; 83605; 85025; 85610; 85730; 87040; 87086; 87088; 87804; 93005; 96361; 96374; 96375; 99284; J7030; A4216; J2405

== ENCOUNTER 2019-01-05 14:30 | Outpatient (RCR) | payer MEDICARE, BC, SELFPAY ==
--- NOTE | 2018-11-25 09:21 | HP.OTEVAL_ITS ---
Patient's Visit Information DORA BRYANT is a 73 year old F, referred to Occupational Therapy by Leonard Billings MD, with a diagnosis of right CMC OA-. Date of Evaluation: 11/24/18 Occupational Therapist: Wendi Richard, LANAR/Roman, CHT - Subjective Subjective: Client states she had difficlty with right thumb pain for years- Client states she was having difficulty with performing her dressing, bathing and home mtg. tasks. Client decided to see Dr. Billings and after decided on sx. Date of sx 10/28/2018. client states she is happy that she had sx. and is ready to return to her PLOF. - Pain right hand 1 Pain Intensity Range: 0, 3 - ROM Wrist: right 45/25 left 70/75 CMC: right 10 left 45 MP: right 25 left 25 IP: right 55 left 70 Radial Abduction: WFL Palmar Abduction: WFL Opposition: 6 ROM Comments: right wrist pain with ROM 2/10 - Strength [employer] Administrator: Right NT left 35# Lateral Pinch: right NT left 8# Tripod Pinch: NT Strength Comments: left thumb demo instability with resistance - Edema Other: no noted edema - Sensation Sensation Comments: denies - Hand/Wrist Evaluation Total Score of Pain & Functional Sections: 81 - Goals Goal:: Following protocol for strengthening- PT will demo an increase in it programmer strength by 20# to increase independent with basic occupations of daily living to return pt to PLOF by D/C. Goal:: Pt will demo an increase in wrist ROM equal to unaffected wrist to return pt to PLOF with grooming, dressing and home mtg tasks by D/C. Goal:: Pt will report pain no greater than 1/10 with use of affected hand with BADLs and IADLs by d/c. Goal:: Pt will demo the ability to form a composite fist to hold and receive 10 coins without dropping coins/ and coin manipulation/money mtg. tasks by D/C. pt will demo ind. writing by d/c Goal:: Pt will demo understanding of scar mtg. by end of 2nd session to increase tissue extensibility to limit scar adhesions and allow full tendons function by d/c. Goal:: Pt will demo understanding of adaptive Equipment use to decrease stress on joints to allow pt to perform BADLs and IADLS at KALYN level. - Rehabilitation General Assessment: client is currently 3 weeks 6 days s/p right CMC arthroplasty with LRTI. client demo good thumb ROM with minimal pain 2/10- right wrist ROM is limited and painful 4/10 with AROM. Client demo need for custom thumb spica orthosis to provide protction and support for another 2 weeks. OTR/L, CHT levi. custom orthosis and instructed client in use and care of custom orthosis. Therapist also ed. client on CMC arthroplasty with LRTI protocol and recovery time. client demo understanding. Pt would benefit from skilled OTR/L,CHT services 1-2x week for 6-8 weeks to return pt to PLOF. Pt would also benefit from ed. on adaptive eq. and joint protction jamia. to prevent further joint damage. Today client was also ed. on wrist/thumb ROM exercises, orthosis use and precautions. client demo understanding. Rehabilitation Potential: Good - Anticipated Interventions Anticipated Interventions: A/AAROM/PROM, Strengthening, Scar Care, Triggerpoint Release, Desensitization, Modalities, Orthoses, Joint Protection/Energy Conservation, Ergonomic Education, Fine Motor Coord/Leonardo - Visit Plan Frequency: Every Other Week Duration: 2 Months TEXT: Thank you for the opportunity to evaluate your patient. For Medicare and Medicare HMO plans, please review the plan of care and approve it. It will need to be FAXED BACK to us at [phone] for Medicare purposes. Please let me know if there are questions or concerns regarding this plan of care. Physician Signature: Date:____
--- NOTE | 2019-03-15 14:13 | HP.OTDCSUM_ITS ---
HP - OT D/C Summary It has been my pleasure to treat DORA BRYANT under orders from Leonard Billings MD, for the diagnosis of right CMC OA- for a total of 6 visit(s). Please see the following information for a summary of their discharge status. - Objective Objective/Function: pt demo ROM WFL-. MP instability with pinch but pt feels she had this prior to sx. 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 45# left direct casting operator- pt rec'd cont with HEP of t-putty - Goals Patient Goals: Regain Mobility, Regain Strength, Decrease Pain, Decrease Swelling/Stiffness, Improve Fine Motor Skills, Use Hand/Wrist/Arm Normally Again, Increase ROM Goal:: Following protocol for strengthening- PT will demo an increase in direct casting operator strength by 20# to increase independent with basic occupations of daily living to return pt to PLOF by D/C. Goal:: Pt will demo an increase in wrist ROM equal to unaffected wrist to return pt to PLOF with grooming, dressing and home mtg tasks by D/C. Goal:: Pt will report pain no greater than 1/10 with use of affected hand with BADLs and IADLs by d/c. Goal:: Pt will demo the ability to form a composite fist to hold and receive 10 coins without dropping coins/ and coin manipulation/money mtg. tasks by D/C. pt will demo ind. writing by d/c Goal:: Pt will demo understanding of scar mtg. by end of 2nd session to increase tissue extensibility to limit scar adhesions and allow full tendons function by d/c. Goal:: Pt will demo understanding of adaptive Equipment use to decrease stress on joints to allow pt to perform BADLs and IADLS at KALYN level. - Plan Plan: pt to cont with HEP of light pinch with t-putty pt given handout on ex - D/C Information Discharge Comments: pt was seen 6 ot visits following a right CMC arthroplasty. pt demo ROM WNL, and reports ine. with ADLs and IADLs. pt continues to struggle with direct casting operator strength and was advised to cont with HEP of light t-putty until she felt her strength returned. Pt If there are questions or concerns regarding this patient's occupational therapy, please fell free to call me at [phone]. Thank you for the referral of this patient. Sincerely, Wendi Richard, LANAR/Roman, CHT
== END 2019-01-05 19:00 | disposition home or self-care (01) ==
LOC: OT 14:30
PROVIDERS: Family Provider Internal Medicine; PCP Internal Medicine; Referring Provider Orthopaedic Surgery; Visit Provider Orthopaedic Surgery
DX: M18.11 Unilateral primary osteoarthritis of first carpometacarpal joint, right hand (principal)
CPT/HCPCS: 97035; 97110; 97140; 97166; 97168; 97530; 97760

== ENCOUNTER 2019-03-07 23:05 | Emergency (ER) | payer MEDICARE, BC, SELFPAY ==
[2019-03-07 23:05] VITALS: BP 159/98; PULSE 71; RESP 22; TEMP 37.2; O2SAT 100; BMI 25.8
[2019-03-07 23:08] VITALS: O2SAT 99
--- NOTE | 2019-03-07 23:08 | RAD_ITS ---
STUDY: X-RAY CHEST REASON FOR EXAM: Female, 73 years old. Chest pain TECHNIQUE: Single AP portable view of the chest. COMPARISON: November 20, 2018 FINDINGS: The lungs are clear and expanded. There are granulomatous calcifications. There is no demonstrated pleural abnormality. Normal size heart. There are calcified mediastinal lymph nodes. Normal visualized pulmonary arteries. Normal visualized aortic arch and descending thoracic aorta. Normal visualized thoracic spine. Normal visualized ribs, clavicles, and shoulders. There is no demonstrated abnormality of the visualized soft tissue structures of the upper abdomen. RAD/Chest 1 View (Portable) IMPRESSION: Degenerative changes, as described above. No demonstrated acute cardiopulmonary process. Electronically Signed: Leonard López MD at 23:52 EDT , Service support ,
--- NOTE | 2019-03-07 23:08 | EKG12_ITS ---
Test Reason : CP Blood Pressure : / mmHG Vent. Rate : 076 BPM Atrial Rate : 076 BPM P-R Int : 154 ms QRS Dur : 070 ms QT Int : 398 ms P-R-T Axes : 062 009 046 degrees QTc Int : 447 ms Normal sinus rhythm Normal ECG Confirmed by ROBIN WEBBER MD ([id number]), web content editor FLORY BLISS ([id number]) on 03/09/2019 9:32:28 AM Referred By: SEEMA Confirmed By:ROBIN WEBBER MD
[2019-03-08 00:05] VITALS: BP 148/71; PULSE 70; RESP 18; O2SAT 95
[2019-03-08 00:12] LABS: Absolute Lymphocyte Count 2.79 X10^3/ul (0.83-4.51); Absolute Neutrophil Count 8.1 X10^3/uL (2.0-7.7); Basophil# 0.02 X10^3/uL; Basophil% 0.2 % (0-1); Eosinophils% 0.9 % (0-5); Hematocrit 42.9 % (37-47); Hemoglobin 14.2 g/dl (12.0-15.0); Lymphocyte # 2.79 X10^3/ul (4.0); Lymphocyte % 23.9 % (19-41); Mean Corp Hgb Conc 33.1 g/gl (32-36); Mean Corpuscular Hgb 30.9 pg (27.0-32.0); Mean Corpuscular Volume 93.5 fL (81-99); Mean Platelet Vol. 10.2 fl (6.2-12.0); Monocyte# 0.55 X10^3/uL; Monocyte% 4.7 % (0-10); Neutrophil # 8.12 X10^3/uL (2.7-7.7); Neutrophil % 69.6 % (47-70); Platelet Count 271 K/mm3 (150-450); RBC Distribution Width CV 14.7 % (11.6-14.6); RBC Distribution Width SD 48.4 fl (35.1-43.9); Red Blood Count 4.59 M/mm3 (4.2-5.4); White Blood Count 11.7 K/mm3 (4.4-11.0)
[2019-03-08 00:16] LABS: POSITIVE COUNT NO; POSITIVE DIFFERENTIAL NO; POSITIVE MORPHOLOGY NO
[2019-03-08 00:20] LABS: Anion Gap 5 (5-15); BUN 21 mg/dL (7-18); BUN/Creat Ratio 21.3 RATIO (10-20); Calcium,Total 8.5 mg/dL (8.5-10.1); Chloride 109 mmol/L (98-107); Creatinine, Serum 0.99 mg/dL (0.55-1.02); EST Glomerular Filtration Rate 59 mL/min (>60); Est Glom Filt Rate - Afr Amer 71 mL/min (>60); Estimated Creatinine Clearance 47.77 ml/min; Glucose 127 mg/dL (74-106); Potassium 4.3 mmol/L (3.5-5.1); Sodium Level 140 mmol/L (136-145)
--- NOTE | 2019-03-08 00:41 | CT_ITS ---
HISTORY: chest pain, Hx HTN, GERD EXAMINATION: CTA Chest WO/W Contrast TECHNIQUE: Helically acquired images were obtained of the chest following IV contrast as per pulmonary angiogram protocol with 3D reconstructions. A radiation dose optimization technique was used for this scan. IV Contrast dosage and agent: 100ml Isovue 370 COMPARISON: Portable chest 03/07/2019 FINDINGS: The main, segmental, and visualized subsegmental pulmonary arteries show normal opacification and appearance. No PE. Thoracic aorta is atherosclerotic and normal in caliber. No aneurysm or aortic dissection identified. No pericardial effusion. Left upper lobe with a small calcified granuloma. AP window and left hilar small calcified lymph nodes. No pulmonary infiltrate, pleural effusion, or suspicious lesion. No lymphadenopathy. Small hiatal hernia. Bones: No acute osseous abnormality. Dorsal kyphosis. CT/CTA Chest W/WO Contrast IMPRESSION: 1. No PE, thoracic aortic dissection, or acute cardiopulmonary disease identified. 2. Old, healed granulomatous disease. 3. Small hiatal hernia. Individualized dose optimization techniques were used for this CT. at 0234 Reported and signed by: Carlos Manuel Maloney MD Electronically Signed: Carlos Manuel Maloney, at 2:33 EDT Tel , Service support ,
[2019-03-08 01:00] VITALS: BP 165/84; PULSE 80; RESP 16; O2SAT 98
[2019-03-08 02:00] VITALS: BP 140/76; PULSE 73; RESP 16; O2SAT 100
--- NOTE | 2019-03-08 02:41 | ED.VISSUMM ---
- ER Visit Summary Date of Service: 03/08/19 Chief Complaint: Chest pain History of Present Illness: The patient is a 73 F who presents with chest pain. This began about 3 hours ago. Within the center of her chest and radiated through to her back. It was a 10 out of 10. Currently she complains of only mild pain in her back 2 out of 10. The pain was sharp. It was pleuritic worse with breathing. No relieving factors. It began while at rest. She denies any associated nausea vomiting diaphoresis or shortness of breath. She did have similar episode last year. She had a normal stress test in August. Physical Examination: Afebrile vitals are normal except blood pressure 148/71 Moist mucous membranes Heart regular rate and rhythm Lungs are clear Abdomen soft Extremities nontender no edema 2+ radial pulses Alert Test Results: EKG shows normal sinus rhythm at a rate of 76. Labs are essentially unremarkable. Negative troponin. Chest x-ray shows no acute process. CTA of the chest shows no evidence of pulmonary embolism or aortic dissection. Emergency Department Course and Treatment: She presents with atypical chest pain. She also had a normal stress in August of last year. She does not appear to have serious or life-threatening pathology at this time. I do feel she is safe for discharge with outpatient follow-up but she does understand return for new or worsening symptoms. Treatment Plan: [] Disposition: Discharge Impression: Chest pain This note was generated with [employer] dictation software. It may contain incorrect words, spelling, and punctuation that were not noted in review of the chart prior to signing ED Disposition - Plan for ED Patient: Referrals: Kasey Bashir MD [Primary Care Provider] -
--- NOTE | 2019-03-08 02:44 | ED.DCSUM_ITS ---
- ER Visit Summary Date of Service: 03/08/19 Chief Complaint: Chest pain History of Present Illness: The patient is a 73 F who presents with chest pain. This began about 3 hours ago. Within the center of her chest and radiated through to her back. It was a 10 out of 10. Currently she complains of only m ild pain in her back 2 out of 10. The pain was sharp. It was pleuritic worse with breathing. No relieving factors. It began while at rest. She denies any associated nausea vomiting diaphoresis or shortness of breath. She did have similar episode last year. She had a normal stress test in August. Physical Examination: Afebrile vitals are normal except blood pressure 148/71 Moist mucous membranes Heart regular rate and rhythm Lungs are clear Abdomen soft Extremities nontender no edema 2+ radial pulses Alert Test Results: EKG shows normal sinus rhythm at a rate of 76. Labs are essentially unremarkable. Negative troponin. Chest x-ray shows no acute process. CTA of the chest shows no evidence of pulmonary embolism or aortic dissection. Emergency Department Course and Treatment: She presents with atypical chest pain. She also had a normal stress in August of last year. She does not appear to have serious or life-threatening pathology at this time. I do feel she is safe for discharge with outpatient follow-up but she does understand return for new or worsening symptoms. Treatment Plan: [] Disposition: Discharge Impression: Chest pain This note was generated with [employer] dictation software. It may contain incorrect words, spelling, and punctuation that were not noted in review of the chart prior to signing ED Disposition - Plan for ED Patient: Referrals: Kasey Bashir MD [Primary Care Provider] -
--- NOTE | 2019-03-08 02:44 | ED.DEP ---
ED Disposition - Plan for ED Patient: Instructions: ED Chest Pain NonCardiac Referrals: Kasey Bashir MD [Primary Care Provider] -
[2019-03-08 02:57] VITALS: BP 124/72; PULSE 74; RESP 13; O2SAT 95
== END 2019-03-08 02:58 | disposition home or self-care (01) ==
PROVIDERS: Emergency Provider Emergency Medicine; Family Provider Internal Medicine; PCP Internal Medicine
DX: R07.89 Other chest pain (principal); K21.9 Gastro-esophageal reflux disease without esophagitis; I10 Essential (primary) hypertension; E03.9 Hypothyroidism, unspecified; Z79.899 Other long term (current) drug therapy
CPT/HCPCS: 36415; 71045; 71275; 80048; 84484; 85025; 93005; 99285; Q9967; A4216

== ENCOUNTER 2019-07-17 09:11 | Day surgery (SDC) | payer MEDICARE, SELFPAY ==
[2019-06-26 09:07] VITALS: BMI 25.9
--- NOTE | 2019-07-01 11:49 | HP_ITS ---
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 Is patient in pain?: No Allergies nitrofurantoin Allergy (Verified 06/26/19 09:15) Rash Penicillins [PCN] Allergy (Verified 06/26/19 09:15) Hives rofecoxib [From Vioxx] Adverse Reaction (Verified 06/26/19 09:15) Nausea/Vom/Diarrhea Medications Calcium Carbonate [Calcium] 600 mg PO DAILY 08/19/18 [History Confirmed 06/26/19] Cholecalciferol (Vitamin D3) [D3-2000] 1,000 unit PO DAILY 08/19/18 [History Confirmed 06/26/19] Enalapril Maleate [Vasotec] 1.25 mg PO DAILY 08/19/18 [History Confirmed 06/26/19] Levothyroxine Sodium [Levoxyl] 12.5 mcg PO DAILY 08/19/18 [History Confirmed 06/26/19] Omeprazole 20 mg PO PRN PRN 08/19/18 [History Confirmed 06/26/19] Prednisone 4 mg PO DAILY 08/19/18 [History Confirmed 06/26/19] Raloxifene HCl [Evista] 60 mg PO DAILY 08/19/18 [History Confirmed 06/26/19] Nitroglycerin 0.4 mg SL PRN PRN #30 tab.subl 08/20/18 [Rx Confirmed 06/26/19] conjugated estrogens 0.625 mg/gram vaginal cream 0.3125 mg VAGINAL 2XW 06/26/19 [History Confirmed 06/26/19] mecobalamin (vitamin B12) 1,000 mcg disintegrating tablet,sublingual 1,000 mcg SUBLINGUAL DAILY 06/26/19 [History Confirmed 06/26/19] Is last menstrual period known: No Post menopausal: No Patient : No PFSH Medical History Carpal tunnel syndrome (Acute) Diplopia (Acute) Diverticulosis (Acute) GERD (gastroesophageal reflux disease) (Acute) Hiatal hernia (Acute) Lactose intolerance (Acute) Panhypopituitarism (Acute) HTN (hypertension) (Chronic) Surgical History History of benign neoplasm of pituitary gland (Acute) History of cataract extraction (Acute) History of colonoscopy (Acute ~2013) History of esophagogastroduodenoscopy (EGD) (Acute ~2013) History of laparoscopic cholecystectomy (Acute) History of tubal ligation (Acute) Status post bunionectomy (Acute) Family History Father Cancer lung Colon cancer Sister Breast cancer Mother Asthma Hypertension CVA (cerebral vascular accident) Social History (Updated 07/01/19 @ 11:50 by Jaime Tolliver MD) Smoking Status: Never smoker HPI HPI HPI: DORA BRYANT, is a 74 F who presents to the office today for HPI HPI Surgical H&P: Yes HPI: DORA BRYANT, is a 74 F who presents to the office today for Evaluations for endoscopy. Patient has been noticing epigastric pain occasional nausea she has been started on omeprazole and has had some slight decrease in the discomfort in addition she has been having some noticeable diarrhea patient underwent an EGD and colonoscopy in August 2014. Her colonoscopy showed polyps of the cecum and random colon biopsies which showed no significant alteration.Patient also notes that she is having difficulty swallowing sometimes it feels that food may get stuck in her distal esophagus. ROS General General: Yes fatigue; no weight change, appetite, colon cancer, breast cancer or weakness HEENT HEENT: No difficulty swallowing, eye injury, eye surgery, swollen glands or hoarseness Endo Endocrine: No thyroid disease, diabetes mellitus, thyroid cancer, Hair loss, heat intolerance or cold intolerance Musc Musculoskeletal: Yes back problems, arthritis and rheumatoid arthritis; no gout or joint pain Cardio Cardiovascular: Yes high blood pressure; no murmur, pacemaker, heart disease, atrial fibrillation, heart attack, heart stent, palpitations, shortness of breat with exertion or chest pain Resp Respiratory: No shortness of breath, No sleep apnea, No cough, No COPD, No asthma, No emphysema, No wheezing Gastro Gastrointestinal: Yes abdominal pain, No nausea or vomiting, Yes diarrhea, No constipation, No blood in stool, Yes acid reflux, Yes hemorrhoids, No ulcers, No gallbladder problem, No black,tarry stools Neuro Neurologic: No weakness Exam Const General: no acute distress, well developed, well hydrated Orientation: oriented to person, oriented to place, oriented to time [facility] Head: normocephalic, atraumatic Ears: external ears normal Mouth: moist mucous membranes Eyes Sclera: sclerae normal Pupils: normal by confrontation Neck Neck: no lymphadenopathy noted Neck mass: No Thyroid: thyroid normal, symmetrical Chest Chest palpation & inspection: normal inspection of the chest Resp Effort & Inspection: normal respiratory effort Auscultation: clear to auscultation bilaterally Percussion: percussion normal Cardio Rate: regular rate Rhythm: regular rhythm Heart Sounds: no murmurs GI Palpation: soft, no hepatosplenomegaly, no masses, nontender Rectal Exam: other Other: Rectal exam deferred. Extrem General: normal to inspection, no clubbing, cyanosis or edema Assessment & Plan Problems 1. Esophageal dysphagia R13.10 2. History of colonic polyps Z86.010 Plan I have discussed the above with the patient. I have offered the patient colonoscopy As well as an EGD for evaluation. I have explained the risks/benefits of the procedure and described the procedure. I have discussed the risks with the patient, including but not limited to: infection, bleeding, perforation of the GI tract requiring emergency surgery, inability to complete the procedure, injury to any internal organs, complications of anesthesia, etc. - the patient understands and agrees to proceed. I have answered all the patient's questions to the patient's satisfaction and the patient has no further questions. The patient has been given instructions for the colon cleansing preparation. Orders Orders: Colonoscopy 06/26/19 EGD 06/26/19 K21.9, R19.7, Z86.010 Coding Level of Care Code Off vis,new,level 3 Diagnoses Esophageal dysphagia R13.10 ??Dysphagia type: esophageal phase History of colonic polyps Z86.010 07/01/19 1150 <Electronically signed by Jaime harrison MD> Date _ Jaime Tolliver MD I have re-examined the patient. There are no clinical changes since date of exam.
--- NOTE | 2019-07-17 | IMM_PTH ---
PATIENT: DORA BRYANT LOC: EN U#:[id number] AGE/SX: 74/F ROOM: RE07/17/[address]: Dr. Jaime Tolliver MD : 1945 BED: DIS: 07/17/2019 SPEC #: [id number] RECD: 07/17/19 13:55 STATUS: CHAPO REEun #: [id number] NAKUL: 07/17/19 00:[address]: Jaime Tolliver DEPT: IMMUNOHISTOCHEMISTRY RECD BY: Manjit Potter ENTERED: 07/17/19 13:57 SP TYPE: IMMUNO OTHR DR: Dr. Kasey Bashir MD Tissues: Gastric mucous membrane Procedures: H Pylori (initial) PHYSICIAN & [place] [id number] SPECIMEN INFORMATION: Tissue Source: B. Antral biopsy Clinical Info: Epigastric pain, nausea, dysphagia, diarrhea Specimen Number: [id number] CPT code: 37947 METHODOLOGY: Deparaffinized sections of prefer/formalin-fixed tissue or PAP/DQ stained slides are incubated with monoclonal/polyclonal antibodies/oligonucleotide probes. Localization is made via biotin free immunoperoxidase method. Appropriate controls are performed and reacted as expected. Results on target cell population are indicated in the following table: RESULTS: ANTIBODY / CLONE RESULT Block B H Pylori (polyclonal) negative These tests were developed and their performance characteristics determined by [facility]. They may not have been cleared or approved by the U.S. Food and Drug Administration. The FDA has determined that such clearance or approval is not necessary. INTERPRETATION: Gastric antrum, biopsy: Negative for Helicobacter pylori organisms. AM:tisha 07/18/19
[2019-07-17 09:38] VITALS: BP 162/82; PULSE 63; RESP 16; TEMP 36.6; O2SAT 100; BMI 25.3
[2019-07-17] MEDS: Lactated Ringers 1,000 ML 75 ML IV (10:04)
--- NOTE | 2019-07-17 10:30 | COLBX_PTH ---
PATIENT: DORA BRAYNT LOC: EN U#:[id number] AGE/SX: 74/F ROOM: RE07/17/[address]: Dr. Jaime Tolliver MD : 1945 BED: DIS: 07/17/2019 SPEC #: [id number] RECD: 07/17/19 11:26 STATUS: CHAPO REEun #: [id number] NAKUL: 07/17/19 10:[address]: Jaime Tolliver DEPT: SURGICAL PATHOLOGY RECD BY: Dionicio Mac ENTERED: 07/17/19 13:39 SP TYPE: COLON BX OTHR DR: Dr. Kasey Bashir MD Tissues: A - BOWEL BIOPSY B - Gastric mucous membrane C - Stomach, NOS D - COLON BIOPSY Procedures: Surgery Specimen Level IV HEADER OPERATION: [place] [place] DIAGNOSIS: Epigastric pain, nausea, dysphagia, diarrhea, history of colon polyps TISSUE SUBMITTED: A. Small bowel biopsy, B. Antral biopsy, C. Fundic gland polyp biopsy, D. Random colon biopsies MICROSCOPIC DIAGNOSIS A. Small bowel, biopsy: Minimal nonspecific chronic inflammation. B. Gastric antrum, biopsy: Mild chronic gastritis. C. Gastric fundus, biopsy: Fundic gland polyp. D. Random biopsy: No pathologic diagnosis. DIVINA:susan 07/18/19 COMMENT B. The results of immunohistochemistry for Helicobacter pylori will be reported separately ([id number]). MICROSCOPIC DESCRIPTION Slides are reviewed. GROSS DESCRIPTION A. Received is one container labeled with the patient name and designated small bowel biopsy. The specimen consists of two irregular fragments of light reardon soft tissue that in aggregate measure 0.6 x 0.3 x 0.1 cm. The specimen is totally submitted in one cassette. B. Received is one container labeled with the patient name and designated antral biopsy. The specimen consists of one irregular fragment of light reardon soft tissue that measures 0.5 x 0.3 x 0.1 cm. The specimen is totally submitted in one cassette. C. Received is one container labeled with the patient name and designated fundic gland polyp biopsy. The specimen consists of multiple irregular fragments of light reardon soft tissue that in aggregate measure 0.5 x 0.4 x 0.1 cm. The specimen is totally submitted in one cassette. D. Received is one container labeled with the patient name and designated random colon biopsy. The specimen consists of multiple irregular fragments of light reardon soft tissue that in aggregate measure 1.5 x 0.7 x 0.1 cm. The specimen is totally submitted in one cassette. / PEDRO:susan 07/17/19 TC: 3 CPT: 61668 x4
--- NOTE | 2019-07-17 11:04 | OP.ENDO_ITS ---
07/17/2019 Kasey Bashir [address] [place] [address] Re : Upper GI endoscopy procedure for Tati Campbell Dear Dr. Bashir This procedure was performed on Wednesday, July 17, 2019. My impressions and recommendations are as follows: Impressions : - Normal esophagus. No specimens collected. - Z-line regular, 36 cm from the incisors. - Multiple gastric polyps. Resected and retrieved. - Normal examined duodenum. Biopsied. Recommendations : - Await pathology results. - Repeat upper endoscopy (date not yet determined) for surveillance based on pathology results. - Return to my office in 1 week. - Continue present medications. My findings are described in the full procedure note, which is enclosed. If I can be of further assistance, please feel free to contact me at Doctor phone number(s): , Fax: [phone], Work: . Sincerely, MD Jaime Howard MD 07/17/2019 11:04:15 AM This report has been signed electronically.
[2019-07-17 11:05] VITALS: BP 114/62; BP 162/82; PULSE 64; RESP 18; TEMP 36.4; O2SAT 95
--- NOTE | 2019-07-17 11:07 | OP.ENDO_ITS ---
07/17/2019 Kasey Bashir [address] [place] [address] Re : Colonoscopy procedure for Tati Campbell Dear Dr. Bashir This procedure was performed on Wednesday, July 17, 2019. My impressions and recommendations are as follows: Impressions : - Diverticulosis in the sigmoid colon. - Non-bleeding internal hemorrhoids. - The examination was otherwise normal. - Biopsies were taken with a cold forceps from the entire colon for evaluation of microscopic colitis. Recommendations : - Discharge patient to home. - Resume previous diet. - Continue present medications. - Await pathology results. - Repeat colonoscopy (date not yet determined) for surveillance based on pathology results. - Return to my office in 1 week. My findings are described in the full procedure note, which is enclosed. If I can be of further assistance, please feel free to contact me at Doctor phone number(s): , Fax: [phone], Work: . Sincerely, MD Jaime Howard MD 07/17/2019 11:06:43 AM This report has been signed electronically.
[2019-07-17 11:10] VITALS: BP 109/59; BP 162/82; PULSE 62; RESP 18; O2SAT 93
[2019-07-17 11:15] VITALS: BP 100/63; BP 162/82; PULSE 64; RESP 18; O2SAT 99
[2019-07-17 11:20] VITALS: BP 125/71; BP 162/82; PULSE 71; RESP 18; TEMP 36.4; O2SAT 100
[2019-07-17 11:51] VITALS: BP 162/82
== END 2019-07-17 12:18 | disposition home or self-care (01) ==
LOC: EN 09:12 → AC 09:14
PROVIDERS: Family Provider Internal Medicine; PCP Internal Medicine; Referring Provider Internal Medicine; Visit Provider Surgery
PROC: 0DJD8ZZ Inspection of Lower Intestinal Tract, Via Natural or Artificial Opening Endoscopic (ICD-10-PCS; CPT 45378; principal; 2019-07-17 10:25)
DX: K29.50 Unspecified chronic gastritis without bleeding (principal); K44.9 Diaphragmatic hernia without obstruction or gangrene; K31.7 Polyp of stomach and duodenum; K64.8 Other hemorrhoids; K57.30 Diverticulosis of large intestine without perforation or abscess without bleeding; Z86.010 Personal history of colon polyps; K21.9 Gastro-esophageal reflux disease without esophagitis; E73.9 Lactose intolerance, unspecified; I10 Essential (primary) hypertension; M06.9 Rheumatoid arthritis, unspecified; E06.9 Thyroiditis, unspecified; E23.0 Hypopituitarism; Z78.0 Asymptomatic menopausal state; Z90.49 Acquired absence of other specified parts of digestive tract; Z79.899 Other long term (current) drug therapy
CPT/HCPCS: 43239; 45380; 88305; 88342; J7120; J2405

== ENCOUNTER → 2020-05-14 08:17 | Outpatient (CLI) | payer MEDICARE, SELFPAY ==
[2020-04-22 13:51] VITALS: BMI 25.3
[2020-05-14] MEDS: 0.9% NaCl Peripheral Flush Adult/Peds IV ×2 (08:42→08:45)
[2020-05-14] MEDS: Zoledronic Acid 5 MG 100 ML 300 MG IV (08:43)
[2020-05-14 08:46] VITALS: BP 159/93; PULSE 75; RESP 18; TEMP 36.1; O2SAT 100; BMI 25.8
[2020-05-14 09:06] VITALS: BP 137/89; PULSE 68
== END ==
PROVIDERS: PCP Internal Medicine; Referring Provider Internal Medicine Endocrinology, Diabetes & Metabolism; Visit Provider Internal Medicine Endocrinology, Diabetes & Metabolism
DX: M81.0 Age-related osteoporosis without current pathological fracture (principal)
CPT/HCPCS: 96365; A4216; J3489

== ENCOUNTER → 2021-04-24 10:19 | Outpatient (CLI) | payer MEDICARE, SELFPAY ==
[2021-04-24 09:30] VITALS: BMI 25.6
[2021-04-24 12:41] LABS: Vitamin D,25 Hydroxy 56.4 ng/mL
[2021-04-24 12:45] LABS: T4 Free Direct 0.76 ng/dL (0.76-1.46)
[2021-04-26 07:33] LABS: Somatomedin C 78 ng/mL (48-191)
== END ==
PROVIDERS: PCP Internal Medicine; Visit Provider Internal Medicine Endocrinology, Diabetes & Metabolism
DX: E03.8 Other specified hypothyroidism (principal); M81.0 Age-related osteoporosis without current pathological fracture; D49.7 Neoplasm of unspecified behavior of endocrine glands and other parts of nervous system; E55.9 Vitamin D deficiency, unspecified; E27.49 Other adrenocortical insufficiency; I10 Essential (primary) hypertension; E23.0 Hypopituitarism
CPT/HCPCS: 36415; 82306; 84305; 84439

== ENCOUNTER → 2021-05-13 12:57 | Outpatient (CLI) | payer MEDICARE, SELFPAY ==
[2021-04-24 09:30] VITALS: BMI 25.6
[2021-05-13 13:12] VITALS: BP 129/84; PULSE 83; RESP 16; TEMP 36.4; O2SAT 99; BMI 25.8
[2021-05-13] MEDS: DENOSUMAB 60 MG/ML SC (13:22)
== END ==
PROVIDERS: PCP Internal Medicine; Referring Provider Internal Medicine Endocrinology, Diabetes & Metabolism; Visit Provider Internal Medicine Endocrinology, Diabetes & Metabolism
DX: M81.0 Age-related osteoporosis without current pathological fracture (principal)
CPT/HCPCS: 96372; J0897

== ENCOUNTER → 2021-11-11 13:11 | Outpatient (CLI) | payer MEDICARE, SELFPAY ==
[2021-04-24 09:30] VITALS: BMI 25.6
[2021-11-11 13:30] VITALS: BP 156/70; PULSE 89; RESP 16; TEMP 35.8; O2SAT 100
[2021-11-11] MEDS: DENOSUMAB 60 MG/ML SC (13:40)
== END ==
PROVIDERS: PCP Internal Medicine; Referring Provider Internal Medicine Endocrinology, Diabetes & Metabolism; Visit Provider Internal Medicine Endocrinology, Diabetes & Metabolism
DX: M81.0 Age-related osteoporosis without current pathological fracture (principal)
CPT/HCPCS: 96372; J0897

== ENCOUNTER → 2022-04-30 | Outpatient (CLI) | payer MEDICARE, SELFPAY ==
[2022-04-30 12:32] LABS: Absolute Lymphocyte Count 1.57 X10^3/uL (0.83-4.51); Absolute Neutrophil Count 11.2 X10^3/uL (2.0-7.7); Basophil# 0.06 X10^3/uL; Basophil% 0.4 % (0-1); Eosinophils% 0.7 % (0-5); Hematocrit 45.2 % (37-47); Hemoglobin 14.9 g/dL (12.0-15.0); Lymphocyte # 1.57 X10^3/ul (0.83-4.51); Lymphocyte % 11.4 % (19-41); Mean Corpuscular Hgb 31.4 pg (27.0-32.0); Mean Corpuscular Volume 95.2 fL (81-99); Mean Platelet Vol. 10.4 fl (6.2-12.0); Monocyte# 0.78 X10^3/uL; Monocyte% 5.7 % (0-10); NRBC Flagged by Analyzer 0 % (0-5); Neutrophil # 11.19 X10^3/uL (2.7-7.7); Neutrophil % 81.1 % (47-70); Platelet Count 296 K/mm3 (150-450); RBC Distribution Width CV 13.7 % (11.6-14.6); RBC Distribution Width SD 48.4 fl (35.1-43.9); Red Blood Count 4.75 M/mm3 (4.2-5.4); White Blood Count 13.8 K/mm3 (4.4-11.0)
[2022-04-30 15:32] LABS: Vitamin D,25 Hydroxy 92.8 ng/mL
[2022-04-30 20:20] LABS: ALB/GLOB Ratio 1.1 RATIO (0.9-2.4); AST(SGOT) 25 U/L (15-37); Alanine Aminotransfer ALT/SGPT 26 U/L (13-56); Albumin, Serum 3.8 g/dL (3.2-5.0); Alkaline Phosphatase 104 U/L (45-117); Anion Gap 7 (5-15); BUN 17 mg/dL (7-18); Calcium,Total 8.9 mg/dL (8.5-10.1); Chloride 110 mmol/L (98-107); Creatinine, Serum 1.13 mg/dL (0.55-1.02); EST Glomerular Filtration Rate 50 mL/min (>60); Est Glom Filt Rate - Afr Amer 60 mL/min (>60); Ferritin 83 ng/mL (8-252); Follicle Stimulating Hormone 1.1 mIU/mL; Free T3 2.1 pg/mL (2.18-3.98); Globulin 3.4 g/dL (2.2-4.2); Glucose 84 mg/dL (74-106); Luteinizing Hormone < 0.2 mIU/mL; Potassium 4.2 mmol/L (3.5-5.1); Protein, Total 7.2 g/dL (6.4-8.2); Sodium Level 140 mmol/L (136-145); T4 Free Direct 0.85 ng/dL (0.76-1.46)
[2022-05-04 20:10] LABS: Somatomedin C 54 ng/mL (48-191)
== END | disposition home or self-care (01) ==
LOC: BIMLAB 10:44
PROVIDERS: PCP Internal Medicine; Visit Provider Internal Medicine Endocrinology, Diabetes & Metabolism
DX: R53.81 Other malaise (principal); E27.49 Other adrenocortical insufficiency; E23.0 Hypopituitarism; R53.83 Other fatigue; E55.9 Vitamin D deficiency, unspecified; Z87.898 Personal history of other specified conditions; M81.0 Age-related osteoporosis without current pathological fracture
CPT/HCPCS: 36415; 80053; 82306; 82728; 83001; 83002; 84305; 84439; 84481; 85025

== ENCOUNTER → 2022-05-12 | Outpatient (CLI) | payer MEDICARE, SELFPAY ==
[2022-05-12 13:14] VITALS: BP 124/70; PULSE 83; RESP 12; TEMP 35.9; O2SAT 98; BMI 26.6
[2022-05-12] MEDS: DENOSUMAB 60 MG/ML SC (13:22)
== END | disposition home or self-care (01) ==
LOC: MEDOUTP 13:09
PROVIDERS: PCP Internal Medicine; Referring Provider Internal Medicine Endocrinology, Diabetes & Metabolism; Visit Provider Internal Medicine Endocrinology, Diabetes & Metabolism
DX: M81.0 Age-related osteoporosis without current pathological fracture (principal)
CPT/HCPCS: 96372; J0897

== ENCOUNTER 2022-06-13 13:08 | Emergency (ER) | payer MEDICARE, SELFPAY ==
[2022-06-13 13:09] VITALS: BP 192/100; PULSE 84; RESP 18; TEMP 36.4; O2SAT 100; BMI 26.2
[2022-06-13 13:22] VITALS: BP 193/86; PULSE 82; RESP 15; O2SAT 100
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
--- NOTE | 2022-06-13 13:33 | EDS_ITS ---
HPI HPI - Fall History of Present Illness Chief Complaint: Trauma Informant: patient Occured/Mechanism Occurred: Today (JPTA) Mechanism/Context: Yes same level fall Narrative: Strong wind blew her storm door as she was holding onto it, causing her to fall to the pavement against her right head and upper extremity. Pain/Injury Pain Location: head, face and upper extremity Quality of Pain: Aching Current Severity: Moderate Maximum Severity: Moderate Worsened by: Palpation Relieved by: Leaving alone Associated Symptoms Associated Symptoms: Positive for Parasthesias (Right midface and right maxillary dentition); Negative for Weakness, Loss of function, Inability to ambulate, Loss of consciousness or Amnesia Narrative Narrative: Patient fell and hit her head on the cement outside of her home, also her right wrist and hand. No loss of consciousness. She has a headache, right facial pain and swelling as well as a laceration, and she has some numbness in the right cheek including up to the right lower eyelid and down to the right maxillary teeth. She is on no anticoagulants or antiplatelet medications. She states the wound from her right temporal area of her face and hand bled quite a bit. [facility] Medical History Arthritis Carpal tunnel syndrome Diplopia Diverticulosis Fibromyalgia GERD (gastroesophageal reflux disease) Hiatal hernia Hormone deficiency HTN (hypertension) IBS (irritable bowel syndrome) Lactose intolerance Malaise and fatigue Osteoarthritis Osteoporosis Panhypopituitarism Pituitary abnormality Seasonal allergies Tumors Home Medications calcium carbonate 600 mg calcium (1,500 mg) tablet 600 mg PO DAILY supplement 08/19/18 [History Last Taken 08/18/18] cholecalciferol (vitamin D3) 50 mcg (2,000 unit) capsule 1,000 unit PO DAILY 08/19/18 [History Last Taken 08/18/18] enalapril maleate 2.5 mg tablet 2.5 mg PO QHS 08/19/18 [History Last Taken 08/18/18] omeprazole 20 mg capsule,delayed release 20 mg PO DAILY 08/19/18 [History Last Taken 07/17/19 05:40] nitroglycerin 0.4 mg sublingual tablet 0.4 mg sublingual PRN PRN Cardiac/Chest Pain ##30 08/20/18 [Rx Last Taken Unknown] conjugated estrogens 0.625 mg/gram vaginal cream (Premarin) 0.3125 mg vaginal 2XW 06/26/19 [History Last Taken Unknown] hydrocortisone 10 mg tablet 10 mg PO .COMPLEX #180 tabs 01/30/22 [Rx Last Taken Unknown] denosumab 60 mg/mL subcutaneous syringe (Prolia) 60 mg subcut [id number] #1 mL 04/30/22 [Rx Last Taken Unknown] levothyroxine 25 mcg tablet 25 mcg PO DAILY thyroid #90 tabs 04/30/22 [Rx Last Taken Unknown] hydrocodone-acetaminophen 5-325mg 5mg-325mg 1 tab PO Q6H PRN PRN Pain 3 days #10 TABLETS 06/13/22 [Rx Last Taken Unknown] Allergy/AdvReac Type Severity Reaction Status Date / Time nitrofurantoin Allergy Rash Verified 06/13/22 13:12 Penicillins [PCN] Allergy Hives Verified 06/13/22 13:12 rofecoxib [From Vioxx] AdvReac Nausea/Vom/ Verified 06/13/22 13:12 Diarrhea Family History Father Cancer lung Colon cancer Sister Breast cancer Mother Asthma Hypertension CVA (cerebral vascular accident) Unknown Anxiety Asthma Arthritis Breast cancer Colon cancer Diabetes Hypertension Hyperlipidemia Severe allergy Surgical History H/O hand surgery History of benign neoplasm of pituitary gland History of cataract extraction History of colonoscopy (~2013) History of colonoscopy (~06/2019) History of esophagogastroduodenoscopy (EGD) (~2013) History of esophagogastroduodenoscopy (EGD) (~06/2019) History of laparoscopic cholecystectomy History of tubal ligation Status post bunionectomy Social History Smoking Status: Never smoker alcohol intake: never substance use type: does not use what type of physical activity do you participate in: other frequency: 3-4 times per week ROS ROS ED Constitutional Constitutional ED: Denies chills or fever(s) Eyes Eyes: Denies change in vision or diplopia ENT ENT ED: Reports as per HPI and facial pain; Denies ear pain, epistaxis or rhinorrhea Cardiovascular Cardiovascular: Denies chest pain or palpitations Respiratory/Chest Respiratory/Chest: Denies cough or dyspnea Gastrointestinal Gastrointestinal: Denies abdominal pain, diarrhea, melena, nausea or vomiting Genitourinary Genitourinary ED: Denies dysuria or hematuria Musculoskeletal Musculoskeletal: Denies back pain, extremity pain or neck pain Integumentary Reports laceration and wounds; Denies abscess, Abrasions or rash Neurologic Neurologic: Reports headache(s) and paresthesias; Denies confusion or weakness Psychiatric Psychiatric: Reports anxiety; Denies suicidal ideation EXAM Physical Exam Const Vital Signs: 06/13/22 13:09 06/13/22 13:22 06/13/22 13:22 Temperature 97.6 F L Temperature Source Temporal Pulse Rate 84 82 Respiratory Rate 18 15 Respiratory Effort Normal Respiratory Depth Normal Respiratory Pattern Normal Blood Pressure 192/100 H 193/86 H Blood Pressure Mean 130 121 Pulse Ox 100 100 100 Oxygen Delivery Method Room Air Room Air Room Air 06/13/22 14:29 Temperature Temperature Source Pulse Rate 89 Respiratory Rate 16 Respiratory Effort Respiratory Depth Respiratory Pattern Blood Pressure Blood Pressure Mean Pulse Ox 97 Oxygen Delivery Method Room Air Positive well nourished and well developed General Appearance ED: well developed and NAD HEENT Reports TM's clear and nasal mucous membranes and turbinates normal HEENT Narrative: Trauma to the face no other signs of head trauma. 1 cm full-thickness laceration with underlying larger contusion/hematoma to the right temporal area without depression or crepitance. Bruising and swelling and tenderness throughout the right midface and including the right lateral superior orbital brim. Midface is stable. Nasal bone nontender. No dental malalignment, no trismus, no mandibular tenderness. No dental or intraoral injury. Normal tongue. There is right infraorbital hypoesthesia. Face and Sinus: Negative for facial tenderness Tympanic Membrane ED: Yes TM's clear Eyes PERRL and EOMs intact bilaterally Eyes Narrative: Traumatic right subconjunctival hemorrhage without evidence of a hyphema. Visual Acuity: other Other Details: no entrapment with extraocular movements Neck full ROM and supple General: Negative for tenderness Chest Wall inspection of chest normal and palpation of chest normal Chest: symmetrical chest wall rise; Negative for crepitus or tenderness Resp normal respiratory effort and clear to auscultation bilaterally Percussion: other equal BS bilat Cardio no murmurs Rate: regular rate Rhythm: regular rhythm GI normal to inspection, nondistended, normoactive bowel sounds, soft to palpation and non-tender Back/Spine normal ROM Cervical Spine: Negative for cervical spine tenderness Thoracic Spine / Upper Back: Negative for thoracic spinal tenderness Lumbar Spine / Lower Back: Negative for lumbar spinal tenderness Extremity normal to inspection and full ROM Extremity Narrative: Tenderness right dorsal distal radius, no tenderness in the snuffbox, good range of motion of the wrist, no other bony tenderness in the extremities. Laceration to the dorsum of the right second webspace in the hand. General Extremety ED: Yes tenderness Neuro oriented x3, CN's II-XII intact bilaterally, moves all extremities, no focal motor deficits and no sensory deficits noted Ailyn Coma Scale: document GCS findings Spontaneous Obeys Commands Oriented 15 Sensorium / Orientation: awake and alert Psych mental status grossly normal and thought process normal Skin Skin Narrative: 1 cm laceration right temporal forehead, 2 cm U-shaped curved laceration with a flap, no tissue loss, right dorsal hand second webspace. Lesions: no lesions Rashes: no rashes MDM MDM MDM Narrative Medical decision making narrative: 3 views x-ray right wrist my interpretation negative for any acute. Radiology in agreement, degenerative changes noted. CT of the brain is negative, CT of the face does show several small nondisplaced fractures involving the right maxilla and the inferior wall of the orbit. She has no clinical or radiographic evidence of entrapment. There is no otolaryngology or ophthalmology on-call today/this weekend. She has been established at both locally, she used to see Dr. Geiger who retired, and sees Dr. Worley. She has better after some analgesics. We repaired her lacerations. Advised to follow-up with both otolaryngology and ophthalmology for reevaluation, this is likely to be n onsurgical, no antibiotics are indicated for this at this time, and she should also follow-up with her PCP for blood pressure reevaluation although she is in pain and very anxious here. She has a history of a pituitary tumor with secondary adrenal insufficiency and takes hydrocortisone 10 mg in the daytime which she already took, she is asking for another stress dose so she does not have acute insufficiency. We will order that for her prior to discharge and prescribe her some analgesics. Her to splint for her right wrist does not feel that she needs it. Radiography Diagnostic Testing: Clinical Impression(s) from Imaging Studies Brain CT 06/13/22 13:32 IMPRESSION: There are no acute intracranial findings. There is a fracture of the right anterior, inferior, and posterior maxillary sinus Soft tissue swelling of the right periorbital region and right maxilla. Right inferior orbital wall fracture. Right extraconal air. No entrapment. Electronically Signed: Noe Castro MD at 14:15 EDT , Facial/Sinus 06/13/22 13:32 IMPRESSION: There is a fracture of the right anterior, inferior, and posterior maxillary sinus Soft tissue swelling of the right periorbital region and right maxilla. Right forehead soft tissue laceration. Right inferior orbital wall fracture. Right extraconal air. No entrapment. Electronically Signed: Noe Castro MD at 14:16 EDT , Wrist X-Ray 06/13/22 13:45 IMPRESSION: No demonstrated acute fracture. Widening of the carpometacarpal articulation of the thumb could be due to previous injury or degenerative changes. Electronically Signed: Carlos Wallis MD at 14:46 EDT , Procedures Lacerations R forehead: Length: 1 cm Depth: Sub Q Shape: Linear Prep: Sterile Conditions and Chlorhexadine Laceration repair: Lidocaine with epi (1cc), Local and Skin sutures Number of Sutures/Krista: 2 Suture Information: Ethilon, Simple and 6-0 R hand: Length: 2 cm Depth: Skin Shape: Flap Prep: Sterile Conditions and Chlorhexadine Laceration repair: Lidocaine with epi (2 cc) and Local Number of Sutures/Krista: 4 Suture Information: Ethilon, Simple and 5-0 Discharge Plan Triage Chief Complaint: Trauma Other Complaint: Head Injury ED Provider: Leonard Syed Dx/Rx/DC Orders Clinical Impression: Fracture of right side of maxilla, Fracture of inferior orbital wall, Closed head injury without loss of consciousness, Right wrist sprain, Laceration of face, Laceration of right hand, Traumatic subconjunctival hemorrhage of right eye, Episode of hypertension Instructions: ED Facial Fracture, ED Laceration: All Closures Prescriptions: New hydrocodone-acetaminophen [hydrocodone-acetaminophen] 5-325 mg tablet 1 tab PO Q6H PRN PRN (Reason: Pain) 3 Days Qty: 10 0RF No Action Premarin 0.625 mg/gram cream 0.3125 mg VAGINAL 2XW Prolia 60 mg/mL syringe 60 mg subcut [id number] Qty: 1 1RF levothyroxine 25 mcg tablet 25 mcg PO DAILY Qty: 90 3RF enalapril maleate 2.5 MG tablet 2.5 mg PO QHS omeprazole 20 capsule,delayed release(DR/EC) 20 mg PO DAILY calcium carbonate 600 MG tablet 600 mg PO DAILY cholecalciferol (vitamin D3) 2,000 UNIT capsule 1,000 unit PO DAILY nitroglycerin 0.4 MG tablet, sublingual 0.4 mg sublingual PRN PRN (Reason: Cardiac/Chest Pain) Qty: 30 0RF Rx Instructions: take one tab sublingually PRN if chest pain occurs hydrocortisone 10 mg tablet 10 mg PO .COMPLEX Qty: 180 1RF Rx Instructions: 10 mg PO 10 mg am and 5 mg afternoon. Double dose if fever.; Primary Care Provider: Pastor Garcia Referrals: Zoltan Worley MD [STAFF PHYSICIAN] - 3-5 Days Darvin Lei MD [STAFF PHYSICIAN] - 3-5 Days Kasey Bashir MD [STAFF PHYSICIAN] - 7 Days for suture removal (and for blood pressure recheck) Disposition Disposition: Home, Self Care
--- NOTE | 2022-06-13 13:45 | RAD_ITS ---
STUDY: X-RAY - RIGHT WRIST REASON FOR EXAM: Female, 77 years old. Injury TECHNIQUE: 3 view(s) of the wrist were obtained. COMPARISON: None. FINDINGS: Normal visualized distal radius and ulna. Normal radiocarpal articulation. Normal distal radioulnar articulation. Normal carpal bones. Normal carpal articulations. Widening of the carpometacarpal articulation of the thumb. Small well-defined bony densities adjacent to the base of the second metacarpal. Normal second through fifth carpometacarpal articulations. Normal visualized metacarpal bones. The soft tissue structures are unremarkable. RAD/Wrist min 3 Views IMPRESSION: No demonstrated acute fracture. Widening of the carpometacarpal articulation of the thumb could be due to previous injury or degenerative changes. Electronically Signed: Carlos Wallis MD at 14:46 EDT ,
[2022-06-13] MEDS: Acetaminophen 325 MG Tablet PO (14:06)
[2022-06-13] MEDS: HYDROcodone Bitartrate/Apap 5/325 Tablet PO (14:06)
[2022-06-13 14:29] VITALS: PULSE 89; RESP 16; O2SAT 97
[2022-06-13 15:25] VITALS: BP 158/72; PULSE 83; RESP 14; O2SAT 99
[2022-06-13] MEDS: Lidocaine 1% /Epi 1:100 (20ml) 20 ML Vial INFILT (15:28)
== END 2022-06-13 15:28 | disposition home or self-care (01) ==
PROVIDERS: Emergency Provider Emergency Medicine; PCP Family Medicine; Visit Provider Emergency Medicine
DX: S02.40CA Maxillary fracture, right side, initial encounter for closed fracture (principal); E27.40 Unspecified adrenocortical insufficiency; D35.2 Benign neoplasm of pituitary gland; S02.31XA Fracture of orbital floor, right side, initial encounter for closed fracture; M19.90 Unspecified osteoarthritis, unspecified site; M79.7 Fibromyalgia; K21.9 Gastro-esophageal reflux disease without esophagitis; I10 Essential (primary) hypertension; K58.9 Irritable bowel syndrome, unspecified; M81.0 Age-related osteoporosis without current pathological fracture; Z79.899 Other long term (current) drug therapy; S63.501A Unspecified sprain of right wrist, initial encounter; H11.31 Conjunctival hemorrhage, right eye; S61.411A Laceration without foreign body of right hand, initial encounter; S01.81XA Laceration without foreign body of other part of head, initial encounter; W19.XXXA Unspecified fall, initial encounter; Z79.52 Long term (current) use of systemic steroids
CPT/HCPCS: 12001; 12011; 70450; 70486; 73110; 99284

== ENCOUNTER → 2022-11-10 | Outpatient (CLI) | payer MEDICARE, SELFPAY ==
[2022-11-10] MEDS: DENOSUMAB 60 MG/ML SC (13:23)
[2022-11-10 13:27] VITALS: BP 129/71; PULSE 86; RESP 14; TEMP 36.2; BMI 26.2
== END | disposition home or self-care (01) ==
LOC: MEDOUTP 13:13
PROVIDERS: PCP Family Medicine; Referring Provider Internal Medicine Endocrinology, Diabetes & Metabolism; Visit Provider Internal Medicine Endocrinology, Diabetes & Metabolism
DX: M81.0 Age-related osteoporosis without current pathological fracture (principal)
CPT/HCPCS: 96372; J0897

== ENCOUNTER 2023-04-01 17:15 | Observation (INO) | payer MEDICARE, SELFPAY ==
[2023-04-01 17:15] VITALS: BP 184/103; PULSE 88; RESP 16; TEMP 36.6; O2SAT 98; BMI 26.1
[2023-04-01 17:51] VITALS: BMI 26.5
--- NOTE | 2023-04-01 18:06 | EX.ED.DYSGE1 ---
HPI <DELBERT Jaurgeui - Last Filed: 04/01/23 20:55> History of Present Illness Chief Complaint: Neuro S/Sx Narrative Narrative: Patient presenting today due to visual changes that have been occurring intermittently over the past month. She states that at times it feels like her eyes cannot focus on an object, and other times she notices two of the same image will be stacked on top of each other. The last episode occurred this afternoon. She states that she has a history of a pituitary tumor that is being monitored by an chef de froid, she has not had any imaging in the past 3 years because she does not like the contrast for the MRI. 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 She states that this did go away on its own. She has had intermittent headaches for the last several months. She states that she has not been evaluated for this yet because her has been in declining health and she has been attributing to her symptoms distress. She denies any fever, chills, dizziness, weakness, chest pain, shortness of breath. <Dr. Cory Anaya DO - Last Filed: 04/01/23 21:48> Narrative Narrative: Patient presenting today due to visual changes that have been occurring intermittently over the past month. She states that at times it feels like her eyes cannot focus on an object, and other times she notices two of the same image will be stacked on top of each other. The last episode occurred this afternoon. The patient is currently asymptomatic. Last known well was this afternoon at approximately 1 PM. She states that she has a history of a pituitary tumor that is being monitored by an chef de froid, she has not had any imaging in the past 3 years because she does not like the contrast for the MRI. 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 She states that this did go away on its own. She has had intermittent headaches for the last several months. She states that she has not been evaluated for this yet because her has been in declining health and she has been attributing to her symptoms distress. She denies any fever, chills, dizziness, weakness, chest pain, shortness of breath. PFSH <DELBERT Jauregui - Last Filed: 04/01/23 20:55> PFSH Medical History Arthritis Carpal tunnel syndrome Diplopia Diverticulosis Fibromyalgia GERD (gastroesophageal reflux disease) Hiatal hernia Hormone deficiency HTN (hypertension) IBS (irritable bowel syndrome) Lactose intolerance Malaise and fatigue Osteoarthritis Osteoporosis Panhypopituitarism Pituitary abnormality Seasonal allergies Tumors Home Medications calcium carbonate 600 mg calcium (1,500 mg) tablet 600 mg PO DAILY supplement 08/19/18 [History Last Taken 08/18/18] cholecalciferol (vitamin D3) 50 mcg (2,000 unit) capsule 1,000 unit PO DAILY 08/19/18 [History Last Taken 08/18/18] enalapril maleate 2.5 mg tablet 2.5 mg PO QHS 08/19/18 [History Last Taken 08/18/18] omeprazole 20 mg capsule,delayed release 20 mg PO DAILY 08/19/18 [History Last Taken 07/17/19 05:40] nitroglycerin 0.4 mg sublingual tablet 0.4 mg sublingual PRN PRN Cardiac/Chest Pain ##30 08/20/18 [Rx Last Taken Unknown] conjugated estrogens 0.625 mg/gram vaginal cream (Premarin) 0.3125 mg vaginal 2XW 06/26/19 [History Last Taken Unknown] denosumab 60 mg/mL subcutaneous syringe (Prolia) 60 mg subcut [id number] #1 mL 04/30/22 [Rx Last Taken Unknown] levothyroxine 25 mcg tablet 25 mcg PO DAILY thyroid #90 tabs 04/30/22 [Rx Last Taken Unknown] hydrocodone-acetaminophen 5-325mg 5mg-325mg 1 tab PO Q6H PRN PRN Pain 3 days #10 TABLETS 06/13/22 [Rx Last Taken Unknown] hydrocortisone 10 mg tablet 10 mg PO .COMPLEX #180 tabs 12/07/22 [Rx Last Taken Unknown] Allergy/AdvReac Type Severity Reaction Status Date / Time nitrofurantoin Allergy Rash Verified 04/01/23 17:17 Penicillins [PCN] Allergy Hives Verified 04/01/23 17:17 rofecoxib [From Vioxx] AdvReac Nausea/Vom/ Verified 04/01/23 17:17 Diarrhea Family History Father Cancer lung Colon cancer Sister Breast cancer Mother Asthma Hypertension CVA (cerebral vascular accident) Unknown Anxiety Asthma Arthritis Breast cancer Colon cancer Diabetes Hypertension Hyperlipidemia Severe allergy Surgical History H/O hand surgery History of benign neoplasm of pituitary gland History of cataract extraction History of colonoscopy (~2013) History of colonoscopy (~06/2019) History of esophagogastroduodenoscopy (EGD) (~2013) History of esophagogastroduodenoscopy (EGD) (~06/2019) History of laparoscopic cholecystectomy History of tubal ligation Status post bunionectomy Social History Smoking Status: Never smoker alcohol intake: never substance use type: does not use what type of physical activity do you participate in: other frequency: 3-4 times per week ROS <DELBERT Jauregui - Last Filed: 04/01/23 20:55> ROS ED Constitutional Constitutional ED: Denies chills or fever(s) Eyes Eyes: Reports change in vision Cardiovascular Cardiovascular: Denies chest pain or palpitations Respiratory/Chest Respiratory/Chest: Denies cough, dyspnea, tachypnea or wheezing Gastrointestinal Gastrointestinal: Denies abdominal pain, constipation, diarrhea, nausea or vomiting Genitourinary Genitourinary ED: Denies dysuria, hematuria or urinary urgency Musculoskeletal Musculoskeletal: Denies arthralgias, back pain, myalgias or neck pain Integumentary Denies abscess, Abrasions or rash Neurologic Neurologic: Denies confusion, dizziness or paresthesias Psychiatric Psychiatric: Denies anxiety, depression, suicidal ideation or suicidal thoughts Allergic/Immunologic Allergic/Immunologic ED: Denies lip swelling, mouth swelling or urticaria EXAM <DELBERT Jauregui - Last Filed: 04/01/23 20:55> Physical Exam Const Vital Signs: 04/01/23 17:15 Temperature 97.8 F Temperature Source Temporal Pulse Rate 88 Respiratory Rate 16 Blood Pressure 184/103 H Blood Pressure Mean 130 Pulse Ox 98 Oxygen Delivery Method Room Air Positive well nourished, well developed and no apparent distress General Appearance ED: well developed HEENT Reports normocephalic and head/scalp atraumatic Mouth ED: Yes moist mucous membranes normal Eyes PERRL and EOMs intact bilaterally Neck full ROM and supple Chest Wall inspection of chest normal Resp normal respiratory effort and clear to auscultation bilaterally Cardio regular rate and regular rhythm GI soft to palpation, non-tender, non-distended and no masses Back/Spine normal ROM and normal to inspection Extremity normal to inspection and full ROM Neuro oriented x3, CN's II-XII intact bilaterally, moves all extremities, no focal motor deficits and no sensory deficits noted Sensorium / Orientation: awake and alert Coordination / Balance: [id number] test normal, yvzb-[id number] test normal and Romberg test negative Speech: speech normal Motor Exam: strength 5/5 throughout Psych mental status grossly normal and thought process normal Skin no rashes or lesions noted and no wounds <Dr. Cory Anaya DO - Last Filed: 04/01/23 21:48> Physical Exam Const Vital Signs: 04/01/23 17:15 Temperature 97.8 F Temperature Source Temporal Pulse Rate 88 Respiratory Rate 16 Blood Pressure 184/103 H Blood Pressure Mean 130 Pulse Ox 98 Oxygen Delivery Method Room Air MDM <DELBERT Jauregui - Last Filed: 04/01/23 20:55> [facility] MDM Narrative Medical decision making narrative: Patient presenting today with intermittent visual changes that she has had over the past month. She states she has not seen any provider for this to date because she has been caring for her sick . Her last episode occurred this afternoon. She is not having any current visual symptoms. She reports a history of a pituitary tumor, CT scan from patient's last visit in May does not show any pituitary mass. CT scan obtained today to rule out any intracranial abnormality and also does not show any pituitary mass. There are concerns for TIA. She denies any personal history of a TIA or stroke but states that her mother had several TIAs as well as a stroke. Labs obtained to rule out leukocytosis, anemia, electrolyte abnormality, ANUP. Potassium is elevated, however the specimen is hemolyzed. Repeat BMP will be obtained as well as an EKG. EKG does not show any hyperkalemic changes. I spoke to the hospitalist in regards to admission for further work-up and patient will be admitted to the hospital in stable condition and is comfortable with plan. Lab Data Attestation: I reviewed the patient's lab results. Lab results narrative: WBC 11.4, potassium 6.0, anion gap 2, BUN 20, creatinine 1.08, GFR 52 Labs: Laboratory Results - last 24 hr 04/01/23 04/01/23 04/01/23 18:20 18:20 19:10 WBC 11.4 H RBC 4.73 Hgb 14.9 Hct 46.3 MCV 97.9 MCH 31.5 MCHC 32.2 RDW Std Deviation 52.8 H RDW Coeff of [place] 14.6 Plt Count TNP MPV 10.8 Immature Gran % (Auto) 0.400 Neut % (Auto) 73.0 H Lymph % (Auto) 18.3 L [place] % (Auto) 6.7 Eos % (Auto) 0.8 Baso % (Auto) 0.8 Absolute Neuts (auto) 8.3 H Absolute Lymphs (auto) 2.08 Nucleated RBC % 0 Platelet Estimate ADEQUATE RBC Morphology N CHROM Anisocytosis RARE Macrocytosis RARE PT 13.5 INR 1.0 APTT 27.0 Sodium 138 Potassium 6.0 H* Chloride 111 H Carbon Dioxide 25.0 Anion Gap 2 L BUN 20 H Creatinine 1.08 H Estim Creat Clear Calc 42.49 Est GFR (MDRD) Af Amer 63 Est GFR (MDRD) Non-Af 52 L BUN/Creatinine Ratio 18.5 Glucose 92 Calcium 9.5 Radiography Diagnostic Testing: Clinical Impression(s) from Imaging Studies Brain CT 04/01/23 18:30 IMPRESSION: There are no acute findings. Chronic involutional changes of the brain. Electronically Signed: Noe Castro MD at 19:16 EDT , CT also reviewed and interpreted by attending ED physician. EKG Initial EKG: Comments: 70 bpm, normal sinus rhythm, no ST elevation, reviewed and interpreted by attending ED physician <Dr. Cory Anaya, DO - Last Filed: 04/01/23 21:48> [facility] Lab Data Attestation: I reviewed the patient's lab results. Lab results narrative: WBC 11.4, potassium 6.0, anion gap 2, BUN 20, creatinine 1.08, GFR 52 CBC with leukocytosis suggestive of systemic inflammation, no anemia, no thrombocytopenia BMP without significant electrolyte abnormalities (hemolyzed K, will send repeat BMP) no significant anion gap or acute kidney injury Coagulation factors within normal limits Labs: Laboratory Results - last 24 hr 04/01/23 04/01/23 04/01/23 18:20 18:20 19:10 WBC 11.4 H RBC 4.73 Hgb 14.9 Hct 46.3 MCV 97.9 MCH 31.5 MCHC 32.2 RDW Std Deviation 52.8 H RDW Coeff of [place] 14.6 Plt Count TNP MPV 10.8 Immature Gran % (Auto) 0.400 Neut % (Auto) 73.0 H Lymph % (Auto) 18.3 L [place] % (Auto) 6.7 Eos % (Auto) 0.8 Baso % (Auto) 0.8 Absolute Neuts (auto) 8.3 H Absolute Lymphs (auto) 2.08 Nucleated RBC % 0 Platelet Estimate ADEQUATE RBC Morphology N CHROM Anisocytosis RARE Macrocytosis RARE PT 13.5 INR 1.0 APTT 27.0 Sodium 138 Potassium 6.0 H* Chloride 111 H Carbon Dioxide 25.0 Anion Gap 2 L BUN 20 H Creatinine 1.08 H Estim Creat Clear Calc 42.49 Est GFR (MDRD) Af Amer 63 Est GFR (MDRD) Non-Af 52 L BUN/Creatinine Ratio 18.5 Glucose 92 Calcium 9.5 Radiography Diagnostic Testing: Clinical Impression(s) from Imaging Studies Brain CT 04/01/23 18:30 IMPRESSION: There are no acute findings. Chronic involutional changes of the brain. Electronically Signed: Noe Castro MD at 19:16 EDT Reading Location ID and State: [facility] / [place] , Service support , EKG Initial EKG: Attestation: I personally reviewed and interpreted this EKG as follows: Treatment and Re-Evaluation :: ED attending note: I evaluated the patient in conjunction with the TINO. I agree with his/her statements and above findings. I have personally performed a face to face assessment of the patient and have reviewed the TINO Note. I performed a substantive portion of the visit including all aspects of the following. I personally saw the patient performed chart review, physical exam, reviewed labs, imaging (if obtained), and formulated a treatment and management plan. Exam: Nursing triage notes reviewed, Vital signs reviewed Constitutional: please see mdm HENT: MMM Eyes: Pupils equal round and reactive to light, Extraocular muscles intact, visual kimball intact, no nystagmus Neck: No stridor, no JVD, full neck ROM Lungs: Clear to auscultation, No wheezing or rales. No increased work of breathing, no conversational dyspnea, no accessory muscle use, no nasal flaring. No respiratory distress noted Heart: Regular rate and rhythm, No murmurs, No rubs and No gallops, 2+ distal pulses (radial, femoral, posterior tibial) in all extremities Abdomen: Soft, there is no tenderness, rigidity, rebound or guarding, no obvious peritoneal signs, no palpable pulsatile abdominal masses, no auscultated abdominal bruit : No CVAT Extremities: No edema Neuro: Alert and oriented x3, neuro exam at baseline, cranial nerves II through XII are intact. No pain with extraocular muscle movement. There is negative test of skew. Normal speech. 5 of 5 strength in upper and lower extremities in flexion extension. Intact sensation to light touch in upper and lower extremity dermatomes. No truncal or extremity ataxia. No dysdiadochokinesia. Normal gait. 2+ reflexes. No meningeal signs. Negative Babinski. NIH of 0 Skin: No rash or lesions noted MDM/plan: Chief Complaint: Double vision External records reviewed: CT scan from May 2022 shows no evidence of pituitary mass I considered the following differential diagnosis: Intracranial mass, ICH, CVA, TIA Patient was hemodynamically stable, afebrile, nontoxic-appearing. She is currently in symptomatic. Here NIH was 0. She is not a candidate currently for tPA, TNK or thrombectomy. She had no focal neurologic deficits. Obtain CT scan rule out mass or bleed or acute CVA. CT scan was negative. Given the patient's transient symptoms we admitted for MRI to rule out CVA or to rule and TIA. Factors affecting care: Hypothyroidism, GERD Social determinants of health: Elderly, poor health literacy History obtained from others: The patient's Shared decision making: I will have a discussion with the patient and or visitors regarding risk/benefits of further testing or admission. They will be made aware of of the risk/benefits inherent in this decision they will be given the opportunity to voice understanding. Consults: Internal medicine Discharge Plan Dx/Rx/DC Orders Clinical Impression: History of pituitary tumor, Vision abnormalities Disposition Disposition: Acute Care Hospital [facility]
--- NOTE | 2023-04-01 18:30 | CT_ITS ---
STUDY: CT BRAIN WITHOUT CONTRAST REASON FOR EXAM: Female, 77 years old. visual changes Individualized dose optimization techniques were used for this CT. TECHNIQUE: Transaxial CT imaging of the brain was performed without administration of intravenous contrast material. COMPARISON: June 13, 2022 FINDINGS: There are calcifications around the carotid artery. These are noted in the cavernous carotid arteries. Normal calvarium. Normal soft tissues. There is mild cerebral atrophy with widening of the extra-axial spaces and ventricular dilatation. There are areas of decreased attenuation within the white matter tracts of the supratentorial brain, consistent with microvascular disease changes. Normal basal ganglia and thalami. Normal brainstem. There is mild cerebellar atrophy. There is no intracranial hemorrhage. There are no findings of an acute ischemic infarction. Empty sella sign. Normal visualized paranasal sinuses. ASPECTS Score for Acute Strokes: 08/31 CT/Brain/Head without Contrast IMPRESSION: There are no acute findings. Chronic involutional changes of the brain. Electronically Signed: Noe Castro MD at 19:16 EDT ,
[2023-04-01 18:46] LABS: Absolute Lymphocyte Count 2.08 X10^3/uL (0.83-4.51); Absolute Neutrophil Count 8.3 X10^3/uL (2.0-7.7); Basophil# 0.09 X10^3/uL; Basophil% 0.8 % (0-1); Eosinophil# 0.09 X10^3/uL; Eosinophils% 0.8 % (0-5); Hematocrit 46.3 % (37-47); Hemoglobin 14.9 g/dL (12.0-15.0); Lymphocyte # 2.08 X10^3/ul (0.83-4.51); Lymphocyte % 18.3 % (19-41); Mean Corp Hgb Conc 32.2 g/dL (32-36); Mean Corpuscular Hgb 31.5 pg (27.0-32.0); Mean Corpuscular Volume 97.9 fL (81-99); Mean Platelet Vol. 10.8 fl (6.2-12.0); Monocyte# 0.76 X10^3/uL; Monocyte% 6.7 % (0-10); NRBC Flagged by Analyzer 0 % (0-5); Neutrophil # 8.32 X10^3/uL (2.7-7.7); POSITIVE COUNT YES; RBC Distribution Width CV 14.6 % (11.6-14.6); RBC Distribution Width SD 52.8 fl (35.1-43.9); Red Blood Count 4.73 M/mm3 (4.2-5.4); White Blood Count 11.4 K/mm3 (4.4-11.0)
[2023-04-01 19:18] LABS: Differential Indicated SCAN CRITERIA MET
[2023-04-01 19:19] LABS: Anion Gap 2 (5-15); BUN 20 mg/dL (7-18); BUN/Creat Ratio 18.5 RATIO (10-20); Calcium,Total 9.5 mg/dL (8.5-10.1); Chloride 111 mmol/L (98-107); Creatinine, Serum 1.08 mg/dL (0.55-1.02); EST Glomerular Filtration Rate 52 mL/min (>60); Est Glom Filt Rate - Afr Amer 63 mL/min (>60); Estimated Creatinine Clearance 42.49 ml/min; Glucose 92 mg/dL (74-106); Sodium Level 138 mmol/L (136-145)
[2023-04-01 19:24] LABS: Anisocytosis RARE; Macrocytosis RARE; Platelet Estimate ADEQUATE (ADEQ); Red Cell Morphology N CHROM NORMAL (NORM C&C)
[2023-04-01 19:27] LABS: Prothrombin Time (Protime)PT. 13.5 SECONDS (11.7-14.9)
--- NOTE | 2023-04-01 20:00 | PCM.HP.STD ---
HPI - General General Date of Admission: 04/01/23 Date of Service: 04/01/23 Chief Complaint: Vision problem HPI Narrative DORA BRYANT, is a 77 F with a significant history of pituitary tumor who presents emergency department with vision problem. Patient report that a day before presentation she saw things stacked on each other. On the day of presentation patient again started and started on the chart. She reported that for the past months she has had trouble with her eyes focusing. She is scheduled to see an employment training specialist coming Wednesday, March 26. She also reports a funny feeling in her head. 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 [facility] Medical History Arthritis Carpal tunnel syndrome Diplopia Diverticulosis Fibromyalgia GERD (gastroesophageal reflux disease) Hiatal hernia Hormone deficiency HTN (hypertension) IBS (irritable bowel syndrome) Lactose intolerance Malaise and fatigue Osteoarthritis Osteoporosis Panhypopituitarism Pituitary abnormality Seasonal allergies Tumors Home Medications calcium carbonate 600 mg calcium (1,500 mg) tablet 600 mg PO DAILY supplement 08/19/18 [History Last Taken 08/18/18] cholecalciferol (vitamin D3) 50 mcg (2,000 unit) capsule 1,000 unit PO DAILY 08/19/18 [History Last Taken 08/18/18] enalapril maleate 2.5 mg tablet 2.5 mg PO QHS 08/19/18 [History Last Taken 08/18/18] omeprazole 20 mg capsule,delayed release 20 mg PO DAILY 08/19/18 [History Last Taken 07/17/19 05:40] nitroglycerin 0.4 mg sublingual tablet 0.4 mg sublingual PRN PRN Cardiac/Chest Pain ##30 08/20/18 [Rx Last Taken Unknown] conjugated estrogens 0.625 mg/gram vaginal cream (Premarin) 0.3125 mg vaginal 2XW 06/26/19 [History Last Taken Unknown] denosumab 60 mg/mL subcutaneous syringe (Prolia) 60 mg subcut [id number] #1 mL 04/30/22 [Rx Last Taken Unknown] levothyroxine 25 mcg tablet 25 mcg PO DAILY thyroid #90 tabs 04/30/22 [Rx Last Taken Unknown] hydrocodone-acetaminophen 5-325mg 5mg-325mg 1 tab PO Q6H PRN PRN Pain 3 days #10 TABLETS 06/13/22 [Rx Last Taken Unknown] hydrocortisone 10 mg tablet 10 mg PO .COMPLEX #180 tabs 12/07/22 [Rx Last Taken Unknown] Allergy/AdvReac Type Severity Reaction Status Date / Time nitrofurantoin Allergy Rash Verified 04/01/23 17:17 Penicillins [PCN] Allergy Hives Verified 04/01/23 17:17 rofecoxib [From Vioxx] AdvReac Nausea/Vom/ Verified 04/01/23 17:17 Diarrhea Family History Father Cancer lung Colon cancer Sister Breast cancer Mother Asthma Hypertension CVA (cerebral vascular accident) Unknown Anxiety Asthma Arthritis Breast cancer Colon cancer Diabetes Hypertension Hyperlipidemia Severe allergy Surgical History H/O hand surgery History of benign neoplasm of pituitary gland History of cataract extraction History of colonoscopy (~2013) History of colonoscopy (~06/2019) History of esophagogastroduodenoscopy (EGD) (~2013) History of esophagogastroduodenoscopy (EGD) (~06/2019) History of laparoscopic cholecystectomy History of tubal ligation Status post bunionectomy Social History Smoking Status: Never smoker alcohol intake: never substance use type: does not use what type of physical activity do you participate in: other frequency: 3-4 times per week ROS ROS Narrative Pertinent positives and pertinent negatives as noted in HPI. All other systems were reviewed and are negative Vital Signs Vital Signs Vital Signs: 04/01/23 17:15 Temperature 97.8 F Temperature Source Temporal Pulse Rate 88 Respiratory Rate 16 Blood Pressure 184/103 H Blood Pressure Mean 130 Pulse Ox 98 Oxygen Delivery Method Room Air Weight Weight: 59.8 kg Body Mass Index (BMI) 26.5 Physical Exam Narrative Physical exam: General: Well-nourished, well-developed. Head: Normocephalic, atraumatic, no tenderness Eyes: Vision is grossly intact. EOMI ENT, no trauma, moist mucous membranes, no rhinorrhea Neck: Nontender, No thyromegaly. CVS: Regular rate and rhythm. S1-S2 present. No murmur, gallop or rub. Respiratory : clear to auscultation bilaterally, chest wall nontender Abdomen: Soft, nontender, nondistended, normal bowel sounds, no masses : Deferred Back: Nontender, no CVA tenderness, no midline spinal tenderness, deformities, step-offs Extremities: Nontender full range of motion, no trauma Skin: Normal color, no trauma, abrasions Neuro: Alert, oriented, cranial nerves II through XII grossly intact. Psychiatry: Normal mood. Normal affect. Not depressed. Not anxious. Results Lab / Micro Data Attestation: I reviewed the patient's lab results. Result Diagrams: 04/01/23 18:20 04/01/23 18:20 Labs: Laboratory Results - last 24 hr 04/01/23 18:20: WBC 11.4 H, RBC 4.73, Hgb 14.9, Hct 46.3, MCV 97.9, MCH 31.5, MCHC 32.2, RDW Std Deviation 52.8 H, RDW Coeff of [place] 14.6, Plt Count TNP, MPV 10.8, Immature Gran % (Auto) 0.400, Neut % (Auto) 73.0 H, Lymph % (Auto) 18.3 L, [place] % (Auto) 6.7, Eos % (Auto) 0.8, Baso % (Auto) 0.8, Absolute Neuts (auto) 8.3 H, Absolute Lymphs (auto) 2.08, Nucleated RBC % 0, Platelet Estimate ADEQUATE, RBC Morphology N CHROM, Anisocytosis RARE, Macrocytosis RARE 04/01/23 18:20: Sodium 138, Potassium 6.0 H*, Chloride 111 H, Carbon Dioxide 25.0, Anion Gap 2 L, BUN 20 H, Creatinine 1.08 H, Estim Creat Clear Calc 42.49, Est GFR (MDRD) Af Amer 63, Est GFR (MDRD) Non-Af 52 L, BUN/Creatinine Ratio 18.5, Glucose 92, Calcium 9.5 04/01/23 19:10: PT 13.5, INR 1.0, APTT 27.[address] 04/01/23 18:30 IMPRESSION: There are no acute findings. Chronic involutional changes of the brain. 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 Chronic involutional changes of the brain. Upon my personal head CT image review: I agree with radiologist interpretation Lipid profile and A1c ordered. Daily aspirin. Will hold off high intensity statin until MRI; and lipid profile is available Permissive hypertension. Control blood pressure with labetalol for systolic blood pressure of more than 220 or diastolic blood pressure of more than 120. MRI/MRA of head; brain; and neck. Echocardiogram ordered. Hypertension Blood pressure is not within goal. However we will hold off home enalapril for permissive hypertension. Trend blood pressures History of potential adenoma with resection/adrenal insufficiency Home hydrocortisone continued Follow MRI. Hyperkalemia Reported a potassium of 6.0 in the ED Blood was hemolyzed. Repeat ordered at the ED. Follow. Follow EKG obtained in the ED CKD stage IIIa Stable DVT prophylaxis: SCDs ordered Charges/Coding Visit Charges Inpatient E&M: 05299 Init Hosp L3
--- NOTE | 2023-04-01 20:06 | EKG12_ITS ---
Test Reason : EYE Blood Pressure : / mmHG Vent. Rate : 070 BPM Atrial Rate : 070 BPM P-R Int : 160 ms QRS Dur : 082 ms QT Int : 400 ms P-R-T Axes : 045 -14 030 degrees QTc Int : 432 ms Normal sinus rhythm Normal ECG Confirmed by AKBAR ORTIZ, ROBIN ([id number]), proposal editor MAGDI SHANNON ([id number]) on 04/05/2023 11:42:43 AM Referred By: Confirmed By:ROBIN WEBBER MD
[2023-04-01 21:06] VITALS: BP 163/77; PULSE 81; RESP 16; TEMP 36.6; O2SAT 97
[2023-04-01] MEDS: Acetaminophen 325 MG Tablet 650 MG PO (21:15)
[2023-04-01 21:49] LABS: Anion Gap 10 (5-15); BUN 18 mg/dL (7-18); BUN/Creat Ratio 17.5 RATIO (10-20); Calcium,Total 8.8 mg/dL (8.5-10.1); Chloride 109 mmol/L (98-107); Creatinine, Serum 1.03 mg/dL (0.55-1.02); EST Glomerular Filtration Rate 55 mL/min (>60); Est Glom Filt Rate - Afr Amer 67 mL/min (>60); Estimated Creatinine Clearance 44.55 ml/min; Glucose 91 mg/dL (74-106); Sodium Level 143 mmol/L (136-145)
--- NOTE | 2023-04-01 22:12 | ECHOD_ITS ---
Reason For Study: TIA/CVA Procedure This was a 2D Doppler, Color Flow transthoracic echocardiogram. Exam performed portable in patient room. Left Ventricle Normal LV size. The estimated ejection fraction is 70 %. No evidence for diastolic dysfunction. No regional wall motion abnormalities noted. Right Ventricle Normal RV size. Normal systolic function. Atria Normal left atrium. Normal right atrium. No doppler evidence for ASD. Bubble contrast study negative for right to left interatrial shunt. Mitral Valve There is no mitral valve stenosis. No mitral valve insufficiency. Tricuspid Valve There is no tricuspid stenosis. Trivial tricuspid valve insufficiency. Pulmonary artery systolic pressure is 45 mmHg. Aortic Valve Trisinus/trileaflet aortic valve. There is no aortic stenosis. No aortic valve insufficiency. Pulmonic Valve There is no pulmonic valvular stenosis. No pulmonic valve insufficiency. Great Vessels Normal aortic root. Pericardium/Pleural No pericardial effusion. Medication Performed a rapid injection of agitated mix of 9 cc saline and 1cc air to assess for atrial septal defect. MMode/2D Measurements & Calculations LVIDd: 4.0 cm IVSd: 0.87 cm Ao root diam: 2.9 cm LVIDs: 2.7 cm LVPWd: 0.69 cm RVDd: 2.9 cm FS: 33.4 % LAV(MOD-bp): 27.4 ml LVAd ap4: 20.8 cm2 SV(MOD-sp4): 35.1 ml LAV(MOD-bp) Indexed: 18.0 ml/m2 LVLd ap4: 6.8 cm LAV(MOD-sp2): 29.1 ml EDV(MOD-sp4): 52.5 ml LAV(MOD-sp4): 25.4 ml EDV(sp4-el): 54.2 ml LVAs ap4: 10.5 cm2 LVLs ap4: 5.7 cm ESV(MOD-sp4): 17.4 ml ESV(sp4-el): 16.5 ml EF(MOD-sp4): 66.8 % EF(sp4-el): 69.5 % SV(sp4-el): 37.7 ml LA A4 area: 12.5 cm2 LA dimension(2D): 2.9 cm RA A4 area: 10.5 cm2 Time Measurements MV dec time: 0.19 sec Doppler Measurements & Calculations MV E max redd: 85.5 cm/sec Lat Peak E' Redd: 9.7 cm/sec Med Peak E' Redd: 10.1 cm/sec MV A max redd: 102.5 cm/sec E/E' lat: 8.9 E/E' med: 8.5 MV E/A: 0.83 Ao V2 max: 135.4 cm/sec LV V1 max: 125.0 cm/sec PA V2 max: 81.4 cm/sec Ao max P.3 mmHg LV V1 max P.3 mmHg TR max redd: 279.9 cm/sec TR max P.3 mmHg ECHO/Echo Complete Interpretation Summary The estimated ejection fraction is 70 %. No evidence for diastolic dysfunction. Pulmonary artery systolic pressure is 45 mmHg. Ordering Physician: Erik Yoder Referring Physician: CARLOS ALBERTO BENSON Performed By: Adriana Raymond RDCS
[2023-04-01 22:20] VITALS: BMI 25.7
[2023-04-02 00:52] VITALS: BMI 25.7
[2023-04-02 02:00] VITALS: BP 124/78; PULSE 60; RESP 16; TEMP 36.6; O2SAT 99
[2023-04-02 06:00] VITALS: BP 128/82; PULSE 60; RESP 17; TEMP 36.7; O2SAT 98
[2023-04-02 06:27] VITALS: PULSE 75
--- NOTE | 2023-04-02 07:10 | MRI_ITS ---
STUDY: MR Brain W/O Contrast 04/02/2023 3:48 PM REASON FOR EXAM: Female, 77 years old. cva Vision changes x 1 month, Hx of pituitary tumor COMPARISON: ct head done yesterday TECHNIQUE: Standardized multiplanar fat and water weighted pulse sequences were obtained. MR Brain W/O Contrast FINDINGS: There is mild cerebral atrophy with widening of the extra-axial spaces and ventricular dilatation. There are a limited number of small white matter hyperintensities, distributed throughout the deep white matter tracts of the cerebral hemispheres, consistent with mild chronic white matter ischemic changes. There is mild prominence of the vermian folia, consistent with atrophy of the vermis. The cerebellar hemispheres are normal. Normal bilateral basal ganglia. Normal thalami. There is no extra-axial fluid accumulation. Normal flow voids within the major intracranial circulation suggesting patency by spin echo criteria. There is expansion of the sella turcica. There is a cystic pituitary gland 25 x 20 x 15mm mass. Normal infundibular stalk. Severe motion artifact but there is no compression of the optic chiasm. Normal tectal plate and pineal gland. Normal midbrain, colin and medulla. Normal basal cisterns. Normal bilateral temporal bones. Normal bilateral internal auditory canals. No demonstrated orbital abnormality, within the constraints of a routine brain study. Normal visualized paranasal sinuses. Normal calvarium and skull base. Normal visualized soft tissue structures. Normal visualized upper cervical spine. Aspect score 10 MRI/Brain without Contrast IMPRESSION: (NOT LISTED IN ORDER OF SIGNIFICANCE) There is expansion of the sella turcica. There is a cystic pituitary gland 25 x 20 x 15mm mass. Normal infundibular stalk. Severe motion artifact but there is no compression of the optic chiasm. Limited study of the lesion without IV and without prior MRI studies. From the patient''s history, ophthalmologic consult is recommended that this is not ordered and obtained. Electronically Signed: Noe Castro MD at 15:52 EDT ,
--- NOTE | 2023-04-02 07:10 | MRI_ITS ---
EXAM: MR ANGIOGRAPHY HEAD WITHOUT INTRAVENOUS CONTRAST CLINICAL INDICATION: cva TECHNIQUE: Routine [place] of [place]/brain 3D time of flight MR angiogram protocol was performed without intravenous contrast. COMPARISON: No relevant prior studies available. FINDINGS: RIGHT INTERNAL CAROTID ARTERY: There is calcified plaque formation of the right cavernous carotid artery, with a mild stenosis (less than 50%). ALL ABOVE CRITERIA BY NASCET. No aneurysm. RIGHT ANTERIOR CEREBRAL ARTERY: Unremarkable. No significant stenosis at the visualized segments. Anterior communicating artery is present. No aneurysm. RIGHT MIDDLE CEREBRAL ARTERY: Unremarkable. No significant stenosis at the visualized segments. No aneurysm. RIGHT POSTERIOR CEREBRAL ARTERY: Unremarkable. No significant stenosis at the visualized segments. No aneurysm. RIGHT VERTEBRAL ARTERY: Unremarkable as visualized. No significant stenosis at the intradural/visualized segments. No aneurysm. LEFT INTERNAL CAROTID ARTERY: There is calcified plaque formation of the left cavernous carotid artery, with a mild stenosis (less than 50%). ALL ABOVE CRITERIA BY NASCET. No aneurysm. LEFT ANTERIOR CEREBRAL ARTERY: Unremarkable. No significant stenosis at the visualized segments. Anterior communicating artery is present. No aneurysm. LEFT MIDDLE CEREBRAL ARTERY: Unremarkable. No significant stenosis at the visualized segments. No aneurysm. LEFT POSTERIOR CEREBRAL ARTERY: Unremarkable. No significant stenosis at the visualized segments. No aneurysm. LEFT VERTEBRAL ARTERY: Unremarkable as visualized. No significant stenosis at the intradural/visualized segments. No aneurysm. BASILAR ARTERY: Unremarkable. No significant stenosis. No aneurysm. OTHER VASCULATURE: See above. SELLA: There is a cystic pituitary mass that displaces the right and left cavernous carotid artery laterally. MRI/MRA Head ONLY without Contrast IMPRESSION: 1. There is a cystic pituitary mass that displaces the right and left cavernous carotid artery laterally. 2. There is calcified plaque formation of the right cavernous carotid artery, with a mild stenosis (less than 50%). ALL ABOVE CRITERIA BY NASCET. 3. There is calcified plaque formation of the left cavernous carotid artery, with a mild stenosis (less than 50%). ALL ABOVE CRITERIA BY NASCET. Electronically Signed: Noe Castro MD at 15:54 EDT ,
--- NOTE | 2023-04-02 07:10 | MRI_ITS ---
EXAM: MR ANGIOGRAPHY NECK WITHOUT INTRAVENOUS CONTRAST CLINICAL INDICATION: CVA TECHNIQUE: Routine carotid MR angiogram protocol was performed without intravenous contrast. 3D reconstructions were reviewed. NASCET criteria using the distal ICAs for comparison were used for evaluation of stenoses. COMPARISON: No relevant prior studies available. FINDINGS: RIGHT COMMON CAROTID ARTERY: Unremarkable. No occlusion or significant stenosis. No dissection. RIGHT INTERNAL CAROTID ARTERY: There is mild atherosclerotic plaque formation of the origin of the right internal carotid artery with less than 50% cross sectional diameter stenosis. ALL ABOVE CRITERIA BY NASCET. No dissection. RIGHT EXTERNAL CAROTID ARTERY: Unremarkable. No occlusion. RIGHT VERTEBRAL ARTERY: Unremarkable. No occlusion or significant stenosis. No dissection. LEFT COMMON CAROTID ARTERY: Unremarkable. No occlusion or significant stenosis. No dissection. LEFT INTERNAL CAROTID ARTERY: There is mild atherosclerotic plaque formation of the origin of the left internal carotid artery with less than 50% cross sectional diameter stenosis. ALL ABOVE CRITERIA BY NASCET. No dissection. LEFT EXTERNAL CAROTID ARTERY: Unremarkable. No occlusion. LEFT VERTEBRAL ARTERY: Unremarkable. No occlusion or significant stenosis. No dissection. GREAT VESSELS OF AORTIC ARCH: Unremarkable. No significant stenosis. CAROTID STENOSIS REFERENCE USING NASCET CRITERIA: % ICA stenosis = (1 - narrowest ICA diameter/diameter of distal cervical ICA) x 100. Mild - <50% stenosis. Moderate - 50-69% stenosis. Severe - 70-94% stenosis. Near occlusion - 95-99% stenosis. Occluded - 100% stenosis. MRI/MRA Neck without Contrast IMPRESSION: 1. There is mild atherosclerotic plaque formation of the origin of the right internal carotid artery with less than 50% cross sectional diameter stenosis. ALL ABOVE CRITERIA BY NASCET. 2. There is mild atherosclerotic plaque formation of the origin of the left internal carotid artery with less than 50% cross sectional diameter stenosis. ALL ABOVE CRITERIA BY NASCET. Electronically Signed: Noe Castro MD at 15:55 EDT ,
[2023-04-02] MEDS: Levothyroxine 25 MCG TABLET PO (07:24)
[2023-04-02 07:38] LABS: Absolute Lymphocyte Count 3.03 X10^3/uL (0.83-4.51); Absolute Neutrophil Count 5.1 X10^3/uL (2.0-7.7); Basophil# 0.08 X10^3/uL; Basophil% 0.9 % (0-1); Eosinophil# 0.34 X10^3/uL; Eosinophils% 3.6 % (0-5); Hematocrit 45.8 % (37-47); Hemoglobin 14.8 g/dL (12.0-15.0); Lymphocyte # 3.03 X10^3/ul (0.83-4.51); Lymphocyte % 32.3 % (19-41); Mean Corp Hgb Conc 32.3 g/dL (32-36); Mean Corpuscular Hgb 31.3 pg (27.0-32.0); Mean Corpuscular Volume 96.8 fL (81-99); Mean Platelet Vol. 10.3 fl (6.2-12.0); Monocyte# 0.78 X10^3/uL; Monocyte% 8.3 % (0-10); NRBC Flagged by Analyzer 0 % (0-5); Neutrophil # 5.11 X10^3/uL (2.7-7.7); Neutrophil % 54.4 % (47-70); Platelet Count 261 K/mm3 (150-450); RBC Distribution Width CV 14.4 % (11.6-14.6); RBC Distribution Width SD 51.3 fl (35.1-43.9); Red Blood Count 4.73 M/mm3 (4.2-5.4); White Blood Count 9.4 K/mm3 (4.4-11.0)
--- NOTE | 2023-04-02 07:59 | CDU_ITS ---
Reason For Study: TIA Rt. Velocities/BP Lt. Velocities/BP Prox CCA 115.8/17.6 cm/sec. Prox CCA 98.1/22.3 cm/sec. Mid CCA 103.5/23.7 cm/sec. Mid CCA 100.3/24.5 cm/sec. Dist CCA 74/18.8 cm/sec. Dist CCA 87.2/26.7 cm/sec. Prox ICA 76.5/20 cm/sec. Prox ICA 66.3/21.2 cm/sec. Mid ICA 93.7/32.3 cm/sec. Mid ICA 74/21.2 cm/sec. Dist ICA 84.7/28.7 cm/sec. Dist ICA 109.7/33.5 cm/sec. Rt. ICA/CCA = 0.91. Lt. ICA/CCA = 1.12. Prox ECA 87.6/7.7 cm/sec. Prox ECA 83.9/13.5 cm/sec. Rt. Vert. 29.6/6.9 cm/sec. Lt. Vert. 114.6/31.1 cm/sec. Right Extracranial There is homogeneous, smooth atherosclerotic plaque noted in the right common carotid artery. There is homogeneous, smooth atherosclerotic plaque noted in the right internal carotid artery. There is intimal thickening but no significant atherosclerotic plaque noted in the right external carotid artery. Antegrade flow is noted in the right vertebral artery. Left Extracranial There is intimal thickening but no significant atherosclerotic plaque noted in the left common carotid artery. There is homogeneous, smooth atherosclerotic plaque noted in the left internal carotid artery. There is intimal thickening but no significant atherosclerotic plaque noted in the left external carotid artery. Antegrade flow is noted in the left vertebral artery. Procedure This is a Carotid Duplex examination using B-mode, color flow and specral Doppler. Carotid Duplex [id number]. Exam performed in department. Preliminary report given to Denise MEDINA. VL/Carotid Duplex Ultrasound Interpretation Summary Smooth plaque at the proximal right internal carotid artery with less than 50% stenosis Less than 50% stenosis right external carotid artery Smooth plaque at the proximal left internal carotid artery with less than 50% s tenosis Less than 50% stenosis left external carotid artery Patent and antegrade vertebral arteries bilaterally. Borderline approaching 50% stenosis left vertebral Ordering Physician: Dana Lux Referring Physician: Iglesia Garcia Performed By: Anne Marie Camilo RVT
[2023-04-02 08:03] VITALS: BP 152/77; PULSE 64; RESP 16; TEMP 36.7; O2SAT 100
[2023-04-02] MEDS: Aspirin 81 MG TAB.CHEW PO (08:07)
[2023-04-02] MEDS: Pantoprazole Sodium 20 MG Tablet PO (08:08)
[2023-04-02] MEDS: Cholecalciferol (VIT D3) 25 MCG TABLET (1,000 UNITS) PO (08:08)
[2023-04-02] MEDS: Hydrocortisone 10 MG Tablet PO (08:08)
[2023-04-02 08:09] LABS: ALB/GLOB Ratio 1.2 RATIO (0.9-2.4); AST(SGOT) 24 U/L (15-37); Alanine Aminotransfer ALT/SGPT 26 U/L (13-56); Albumin, Serum 3.5 g/dL (3.2-5.0); Alkaline Phosphatase 94 U/L (45-117); Anion Gap 6 (5-15); BUN 17 mg/dL (7-18); Calcium,Total 8.7 mg/dL (8.5-10.1); Chloride 111 mmol/L (98-107); Cholesterol 183 mg/dL (200); EST Glomerular Filtration Rate 57 mL/min (>60); Est Glom Filt Rate - Afr Amer 69 mL/min (>60); Estimated Creatinine Clearance 44.38 ml/min; Globulin 2.8 g/dL (2.2-4.2); Glucose 83 mg/dL (74-106); High Density Lipoprotein 61 mg/dL; Potassium 3.6 mmol/L (3.5-5.1); Protein, Total 6.3 g/dL (6.4-8.2); Sodium Level 143 mmol/L (136-145); Triglycerides 98 mg/dL; Very Low Density Lipoprotein 20 mg/dL (5-40)
[2023-04-02 08:37] LABS: Hemoglobin A1c 5.6 % (3.8-5.6)
[2023-04-02 10:00] VITALS: BP 147/89; PULSE 89; RESP 18; TEMP 36.6; O2SAT 98
[2023-04-02 14:22] VITALS: BP 120/75; PULSE 65; RESP 16; TEMP 37; O2SAT 99
[2023-04-02] MEDS: Hydrocortisone 10 MG Tablet 5 MG PO (14:25)
[2023-04-02 15:11] VITALS: BMI 25.7
--- NOTE | 2023-04-02 15:41 | CHAPLAIN ---
Type of Pastoral Visit _x__ Initial Visit ___ Follow-up Visit ___ On-call Visit ___ General Patient Visit ___ Spiritual Assessment ___ Family Conference ___ Bereavement ___ Rapid Response ___ Code Blue ___ Other (describe below) Pastoral Care Referral From _x__ Patient ___ Family ___ Nurse ___ Physician ___ Zinc Miner Blasting ___ Station Master ___ Other (describe below) Sacrament/Intervention _x__ Active listening ___ Anointing ___ Zoroastrianism ___ Bereavement ___ Communion _x__ Ivanna exploration ___ ___ Life review _x__ Prayer ___ Reconciliation ___ Sacrament of Sick ___ Supportive presence ___ Wedding ___ Other (describe below) Pastoral Comments patient welcomes spiritual care and identifies self as a Spiritism with interest in talking about ivanna and family; pt expects to be discharged and indicates no concerns
--- NOTE | 2023-04-02 15:58 | PCM.DC.SUM ---
Providers Date of Admission: 04/01/23 Date of Discharge: 04/02/23 Primary Care Physician: Dr. 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 Code(s): E23.0 - Hypopituitarism (4) Secondary adrenal insufficiency: Status: Chronic Code(s): E27.49 - Other adrenocortical insufficiency Medications at Discharge Home Medications calcium carbonate 600 mg calcium (1,500 mg) tablet 600 mg PO DAILY supplement 08/19/18 cholecalciferol (vitamin D3) 50 mcg (2,000 unit) capsule 1,000 unit PO DAILY 08/19/18 enalapril maleate 2.5 mg tablet 2.5 mg PO QHS 08/19/18 omeprazole 20 mg capsule,delayed release 20 mg PO DAILY 08/19/18 nitroglycerin 0.4 mg sublingual tablet 0.4 mg sublingual PRN PRN Cardiac/Chest Pain ##30 08/20/18 conjugated estrogens 0.625 mg/gram vaginal cream (Premarin) 0.3125 mg vaginal 2XW 06/26/19 denosumab 60 mg/mL subcutaneous syringe (Prolia) 60 mg subcut [id number] #1 mL 04/30/22 levothyroxine 25 mcg tablet 25 mcg PO DAILY thyroid #90 tabs 04/30/22 hydrocodone-acetaminophen 5-325mg 5mg-325mg 1 tab PO Q6H PRN PRN Pain 3 days #10 TABLETS 06/13/22 hydrocortisone 10 mg tablet 10 mg PO .COMPLEX #180 tabs 12/07/22 Hospital Course Procedures 2-D Echocardiogram, EKG and - (Carotid ultrasound/MRA head neck/MRI brain) Summary of Care Provided Minutes Spent on Discharge: 30 Hospital Course: Mrs. Campbell is a 77-year-old white female who presented to the emergency department at [facility] on 04/01/2023 with visual changes. She has a history of a pituitary tumor that is cystic in nature and has had rupture of cyst there previously that have caused some visual changes for her. She reported on the day of presentation that she had some diplopia and blurred vision with difficulty focusing over the past couple months. She has an eye appointment to see her fire truck driver on April 05 but this worried her so she came in to have this further addressed. On admission she admitted that she is very stressed at home as she is taking care of her ill who has severe heart failure and is not doing well clinically. She felt that her anxiety may be contributing to her visual issues. She was admitted in and stroke work-up was pursued. CT of the brain showed no acute findings with chronic involutional changes. MRI did confirm cystic pituitary gland that was 25 x 20 x 15 mm. The infundibular stalk was normal and there was severe motion artifact however no compression was noted at the optic chiasm. MRA of the head neck showed approximately less than 50% carotid stenosis but carotid duplex showed smooth plaque with less than 50% stenosis at the proximal right internal carotid artery, smooth plaque at the proximal left internal carotid artery that was less than 50% and about 50% stenosis of the left vertebral artery with patent and antegrade flow bilaterally. We did obtain lipids and her total cholesterol was 183/LDL 102/HDL 61/triglycerides 98. With the identification of plaque I did recommend a low-dose statin to see if we get her LDL less than 70 however she would prefer to alter her diet at this time to see if she can make improvements and then may be willing to start a statin in the future if diet changes did not result in appropriate changes in her cholesterol. I did give her information on a low-fat low cholesterol diet at the time of discharge. Echocardiogram was performed and showed an EF of 70% with no diastolic dysfunction and pulmonary systolic pressure to 45 mmHg with a negative bubble study. The patient's visual disturbances that she presented with were resolved for pretty much all of her hospital course. She does have an appointment with her fire truck driver on Wednesday and I encouraged her to keep this appointment. She assured me that she would. I also asked her to please follow-up with her primary care physician within the next 1 to 2 weeks. She was discharged home in stable condition on 04/02/2023. 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 Diverticulosis GERD Fibromyalgia Hiatal hernia Lactose intolerance Osteoporosis Physical Exam Const alert, oriented x3, no apparent distress, average body habitus, no limitations, healthy appearing and well nourished General Appearance: cooperative, comfortable, well kempt and well developed Orientation / Consciousness: awake, oriented to person, oriented to place and oriented to time Exam Limitations: no limitations HEENT normocephalic, head/scalp atraumatic and hearing grossly normal bilaterally Resp normal respiratory effort, no retractions, no use of accessory muscles and clear to auscultation bilaterally Auscultation: Negative for crackles, rhonchi or wheezes Cardio regular rate, regular rhythm, S1 normal heart sound, S2 normal heart sound, no murmurs, no rub, no gallops and no clicks GI normal to inspection, nondistended, normoactive bowel sounds and soft to palpation Extremity no clubbing, cyanosis or edema Extremity Narrative: 2+ pedal pulses Neuro oriented x3, CN's II-XII intact bilaterally, moves all extremities and no focal motor deficits Speech: speech normal Psych affect normal Psych Narrative: Very pleasant, appropriate Weight / BMI Weight Weight: 57.833 kg Body Mass Index (BMI) 25.7 ABG / Lab / Microbiology Data Result Diagrams: 04/02/23 06:45 04/02/23 06:45 Laboratory: Laboratory Results - last 24 hr 04/01/23 18:20: WBC 11.4 H, RBC 4.73, Hgb 14.9, Hct 46.3, MCV 97.9, MCH 31.5, MCHC 32.2, RDW Std Deviation 52.8 H, RDW Coeff of Marina 14.6, Plt Count TNP, MPV 10.8, Immature Gran % (Auto) 0.400, Neut % (Auto) 73.0 H, Lymph % (Auto) 18.3 L, Edmonson % (Auto) 6.7, Eos % (Auto) 0.8, Baso % (Auto) 0.8, Absolute Neuts (auto) 8.3 H, Absolute Lymphs (auto) 2.08, Nucleated RBC % 0, Platelet Estimate ADEQUATE, RBC Morphology N CHROM, Anisocytosis RARE, Macrocytosis RARE 04/01/23 18:20: Sodium 138, Potassium 6.0 H*, Chloride 111 H, Carbon Dioxide 25.0, Anion Gap 2 L, BUN 20 H, Creatinine 1.08 H, Estim Creat Clear Calc 42.49, Est GFR (MDRD) Af Amer 63, Est GFR (MDRD) Non-Af 52 L, BUN/Creatinine Ratio 18.5, Glucose 92, Calcium 9.5 04/01/23 19:10: PT 13.5, INR 1.0, APTT 27.0 04/01/23 21:25: Sodium 143, Potassium 4.0, Chloride 109 H, Carbon Dioxide 24.0, Anion Gap 10, BUN 18, Creatinine 1.03 H, Estim Creat Clear Calc 44.55, Est GFR (MDRD) Af Amer 67, Est GFR (MDRD) Non-Af 55 L, BUN/Creatinine Ratio 17.5, Glucose 91, Calcium 8.8 04/02/23 06:45: WBC 9.4, RBC 4.73, Hgb 14.8, Hct 45.8, MCV 96.8, MCH 31.3, MCHC 32.3, RDW Std Deviation 51.3 H, RDW Coeff of Marina 14.4, Plt Count 261, MPV 10.3, Immature Gran % (Auto) 0.500, Neut % (Auto) 54.4, Lymph % (Auto) 32.3, Edmonson % (Auto) 8.3, Eos % (Auto) 3.6, Baso % (Auto) 0.9, Absolute Neuts (auto) 5.1, Absolute Lymphs (auto) 3.03, Nucleated RBC % 0 04/02/23 06:45: Sodium 143, Potassium 3.6, Chloride 111 H, Carbon Dioxide 26.0, Anion Gap 6, BUN 17, Creatinine 1.00, Estim Creat Clear Calc 44.38, Est GFR (MDRD) Af Amer 69, Est GFR (MDRD) Non-Af 57 L, BUN/Creatinine Ratio 17.0, Glucose 83, Calcium 8.7, Total Bilirubin 0.50, AST 24, ALT 26, Alkaline Phosphatase 94, Total Protein 6.3 L, Albumin 3.5, Globulin 2.8, Albumin/Globulin Ratio 1.2, Triglycerides 98, Cholesterol 183, LDL Cholesterol 102, VLDL Cholesterol 20, HDL Cholesterol 61 04/02/23 06:45: Hemoglobin A1c 5.6 Radiography Diagnostic Testing: Radiology Impression Brain CT 04/01/23 18:30 IMPRESSION: There are no acute findings. Chronic involutional changes of the brain. Electronically Signed: Noe Castro MD at 19:16 EDT , Echocardiogram 04/01/23 22:12 Interpretation Summary The estimated ejection fraction is 70 %. No evidence for diastolic dysfunction. Pulmonary artery systolic pressure is 45 mmHg. Ordering Physician: Erik Yoder Referring Physician: PASTOR BENSON Performed By: Adriana Raymond RDCS Brain MRI 04/02/23 07:10 IMPRESSION: (NOT LISTED IN ORDER OF SIGNIFICANCE) There is expansion of the sella turcica. There is a cystic pituitary gland 25 x 20 x 15mm mass. Normal infundibular stalk. Severe motion artifact but there is no compression of the optic chiasm. Limited study of the lesion without IV and without prior MRI studies. From the patient''s history, ophthalmologic consult is recommended that this is not ordered and obtained. Electronically Signed: Noe Castro MD at 15:52 EDT , Head MRA 04/02/23 07:10 IMPRESSION: 1. There is a cystic pituitary mass that displaces the right and left cavernous carotid artery laterally. 2. There is calcified plaque formation of the right cavernous carotid artery, with a mild stenosis (less than 50%). ALL ABOVE CRITERIA BY NASCET. 3. There is calcified plaque formation of the left cavernous carotid artery, with a mild stenosis (less than 50%). ALL ABOVE CRITERIA BY NASCET. Electronically Signed: Noe Castro MD at 15:54 EDT , Neck MRA 04/02/23 07:10 IMPRESSION: 1. There is mild atherosclerotic plaque formation of the origin of the right internal carotid artery with less than 50% cross sectional diameter stenosis. ALL ABOVE CRITERIA BY NASCET. 2. There is mild atherosclerotic plaque formation of the origin of the left internal carotid artery with less than 50% cross sectional diameter stenosis. ALL ABOVE CRITERIA BY NASCET. Electronically Signed: Noe Castro MD at 15:55 EDT , Carotid Duplex 04/02/23 07:59 Interpretation Summary Smooth plaque at the proximal right internal carotid artery with less than 50% stenosis Less than 50% stenosis right external carotid artery Smooth plaque at the proximal left internal carotid artery with less than 50% stenosis Less than 50% stenosis left external carotid artery Patent and antegrade vertebral arteries bilaterally. Borderline approaching 50% stenosis left vertebral Ordering Physician: Dana Lux Referring Physician: Iglesia Benson Performed By: Anne Marie Camilo RVT D/C Instructions Discharge Diet: Low fat / Low cholesterol Discharge Activity: Return to Normal Activity Meaningful Use Info Meaningful Use Diagnoses (Choose all that apply): None applicable Discharge Plan Admission Admit Date/Time: 04/01/23 20:03 Primary Reason for Your Visit: Visual changes Attending Provider: Dana Lux Primary Care Provider: Pastor Benson Consulting Providers: Erik Yoder Instructions Patient Instructions: ED Low-Cholesterol Diet, Low-Fat Cooking Tips Additional Instructions / Restrictions: 1. Your MRI did confirm a cystic pituitary gland but there is no compression of the optic nerves or the chiasm which is where the optic nerves join to go to the brain. The pituitary sits right over the chiasm. 2. Recommend outpatient follow-up with Dr. Worley within the next week to reevaluate your vision and to perform a dilated eye exam. Discharge Orders/Prescriptions Prescriptions: Continued Premarin 0.625 mg/gram cream 0.3125 mg VAGINAL 2XW Prolia 60 mg/mL syringe 60 mg subcut [id number] Qty: 1 1RF levothyroxine 25 mcg tablet 25 mcg PO DAILY Qty: 90 3RF enalapril maleate 2.5 MG tablet 2.5 mg PO QHS omeprazole 20 capsule,delayed release(DR/EC) 20 mg PO DAILY calcium carbonate 600 MG tablet 600 mg PO DAILY cholecalciferol (vitamin D3) 2,000 UNIT capsule 1,000 unit PO DAILY nitroglycerin 0.4 MG tablet, sublingual 0.4 mg sublingual PRN PRN (Reason: Cardiac/Chest Pain) Qty: 30 0RF Rx Instructions: take one tab sublingually PRN if chest pain occurs hydrocodone-acetaminophen 5-325 mg tablet 1 tab PO Q6H PRN PRN (Reason: Pain) 3 Days Qty: 10 0RF hydrocortisone 10 mg tablet 10 mg PO .COMPLEX Qty: 180 1RF Rx Instructions: 10 mg PO 10 mg am and 5 mg afternoon. Double dose if fever.; Referrals / Follow Up: Pastor Benson MD [Primary Care Provider] - In 1 Week Zoltan Worley MD [Med Staff - Active Staff] - Within 1 Week Disposition Disposition (needs filled in before D/C Order can be placed): Home, Self Care Charges/Coding Visit Charges Inpatient E&M: 83340 Disch Hosp
== END 2023-04-02 17:22 | disposition home or self-care (01) ==
LOC: ED 20:45 → PCU 21:01
PROVIDERS: Physician Assistant; Admitting Provider Hospitalist; Emergency Provider Emergency Medicine; PCP Family Medicine; Visit Provider Internal Medicine
DX: H53.9 Unspecified visual disturbance (principal); E27.49 Other adrenocortical insufficiency; D35.2 Benign neoplasm of pituitary gland; N18.31 Chronic kidney disease, stage 3a; I65.23 Occlusion and stenosis of bilateral carotid arteries; K21.9 Gastro-esophageal reflux disease without esophagitis; I12.9 Hypertensive chronic kidney disease with stage 1 through stage 4 chronic kidney disease, or unspecified chronic kidney disease; M79.7 Fibromyalgia; K44.9 Diaphragmatic hernia without obstruction or gangrene; E73.9 Lactose intolerance, unspecified; E03.9 Hypothyroidism, unspecified; M81.0 Age-related osteoporosis without current pathological fracture; Z79.899 Other long term (current) drug therapy; Z79.890 Hormone replacement therapy; E87.5 Hyperkalemia
CPT/HCPCS: 36415; 70450; 70544; 70547; 70551; 80048; 80053; 80061; 83036; 85025; 85610; 85730; 93005; 93306; 93880; 99221; 99283; A4216; G0378

== ENCOUNTER → 2023-05-20 | Outpatient (CLI) | payer MEDICARE, SELFPAY ==
[2023-05-20 17:48] LABS: Vitamin D,25 Hydroxy 122.2 ng/mL
[2023-05-20 18:20] LABS: Free T3 1.7 pg/mL (2.18-3.98); T4 Free Direct 0.73 ng/dL (0.76-1.46)
== END | disposition home or self-care (01) ==
LOC: LAB 16:05
PROVIDERS: PCP Family Medicine; Visit Provider Internal Medicine Endocrinology, Diabetes & Metabolism
DX: E27.49 Other adrenocortical insufficiency (principal); M81.0 Age-related osteoporosis without current pathological fracture; E03.8 Other specified hypothyroidism; Z87.898 Personal history of other specified conditions; E55.9 Vitamin D deficiency, unspecified
CPT/HCPCS: 36415; 82306; 84439; 84481

== ENCOUNTER 2023-05-21 10:18 | Outpatient (CLI) | payer MEDICARE, SELFPAY ==
[2023-05-21 10:26] VITALS: BP 131/72; PULSE 79; RESP 16; TEMP 35.9; O2SAT 99; BMI 26.2
[2023-05-21] MEDS: DENOSUMAB 60 MG/ML SC (10:31)
== END 2023-05-21 10:19 | disposition home or self-care (01) ==
LOC: MEDOUTP 10:18
PROVIDERS: PCP Family Medicine; Referring Provider Internal Medicine Endocrinology, Diabetes & Metabolism; Visit Provider Internal Medicine Endocrinology, Diabetes & Metabolism
DX: M81.0 Age-related osteoporosis without current pathological fracture (principal)
CPT/HCPCS: 96372; J0897

== ENCOUNTER → 2023-07-21 | Outpatient (CLI) | payer MEDICARE, SELFPAY ==
[2023-07-21 12:55] LABS: Vitamin D,25 Hydroxy 65.4 ng/mL
[2023-07-21 13:19] LABS: Free T3 2.2 pg/mL (2.18-3.98); T4 Free Direct 0.93 ng/dL (0.76-1.46)
[2023-07-23 08:11] LABS: Somatomedin C 65 ng/mL (42-185)
== END | disposition home or self-care (01) ==
LOC: LAB 10:45
PROVIDERS: Nurse Practitioner Family; PCP Family Medicine; Referring Provider Internal Medicine Endocrinology, Diabetes & Metabolism; Visit Provider Internal Medicine Endocrinology, Diabetes & Metabolism
DX: E55.9 Vitamin D deficiency, unspecified (principal); E03.8 Other specified hypothyroidism; D49.7 Neoplasm of unspecified behavior of endocrine glands and other parts of nervous system
CPT/HCPCS: 36415; 82306; 84305; 84439; 84481

== ENCOUNTER 2023-11-19 10:23 | Outpatient (CLI) | payer MEDICARE, SELFPAY ==
[2023-11-19 10:32] VITALS: BP 151/80; PULSE 80; RESP 16; TEMP 36.6; O2SAT 99; BMI 26.9
[2023-11-19] MEDS: DENOSUMAB 60 MG/ML SC (10:36)
--- OUTSIDE RECORDS SUMMARY | 2023-11-19 10:46 | XMS RPT_ITS | CCD ---
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 skin damage 07/07/2011 04/15/2016 Melanocytic nevus of trunk: L lower chest 201004/15/2016 Skin tag 07/07/2011 04/15/2016 Routine general medical exam ination at a health care facility 04/22/2009 04/15/2016 Overview: LDL 123 in 10-07 Intermittent RLQ abd pain (roughly started in 12-31): no findings on exam in 04-30 Creat 0.6 in 04-30 documented as of this encounter (statuses as of 04/13/2022) [facility]01-[facility]-2021 History of Past illness Narrative* Problem Noted Date Resolved Date Acute bilateral low back pain without sciatica 0 11/26/2020 01/23/2021 Contact dermatitis and other eczema due to other specified agent 10/07/2012 04/15/2016 Eczematous dermatitis 10/07/2012 04/15/2016 Xerosis cutis 10/07/2012 04/15/2016 Postinflammatory skin changes 10/07/2012 Pituitary adenoma 08/05/2011 04/22/2021 Cholecystitis 07/15/2011 10/10/2013 Overview: [facility] 02/2011- partial CBD obs s/p lap aye Angioma: tongue and other sites 07/07/2011 04/15/2016 Tongue discoloration: angioma and capillary vari cosities 07/07/2011 04/15/2016 [place] angiomas 07/07/2011 04/15/2016 Solar Lentigines 07/07/2011 04/15/2016 Actinic skin damage 07/07/2011 04/15/2016 Melanocytic nevus of trunk: L lower chest 201004/15/2016 Skin tag 07/07/2011 04/15/2016 Routine general medical exam ination at a health care facility 04/22/2009 04/15/2016 Overview: LDL 123 in 10-07 Intermittent RLQ abd pain (roughly started in 12-31): no findings on exam in 04-30 Creat 0.6 in 04-30 documented as of this encounter (statuses as of 04/14/2022) [facility]01-[facility] History of Past illness Narrative* Problem Noted Date Resolved Date Acute bilateral low back pain without sciatica 0 11/26/2020 01/23/2021 Contact dermatitis and other eczema due to other specified agent 10/07/2012 04/15/2016 Eczematous dermatitis 10/07/2012 04/15/2016 Xerosis cutis 10/07/2012 04/15/2016 Postinflammatory skin changes 10/07/2012 Pituitary adenoma 08/05/2011 04/22/2021 Cholecystitis 07/15/2011 10/10/2013 Overview: [facility] 02/2011- partial CBD obs s/p lap aye Angioma: tongue and other sites 07/07/2011 04/15/2016 Tongue discoloration: angioma and capillary vari cosities 07/07/2011 04/15/2016 [place] angiomas 07/07/2011 04/15/2016 Solar Lentigines 07/07/2011 04/15/2016 Actinic skin damage 07/07/2011 04/15/2016 Melanocytic nevus of trunk: L lower chest 201004/15/2016 Skin tag 07/07/2011 04/15/2016 Routine general medical exam ination at a health care facility 04/22/2009 04/15/2016 Overview: LDL 123 in 08-28 Intermittent RLQ abd pain (roughly started in 12-31): no findings on exam in 04-30 Creat 0.6 in 04-30 documented as of this encounter (statuses as of 04/23/2022) [facility]01[facility] History of Past illness Narrative* Problem Noted Date Resolved Date Acute bilateral low back pain without sciatica 0 11/26/2020 01/23/2021 Contact dermatitis and other eczema due to other specified agent 10/07/2012 04/15/2016 Eczematous dermatitis 10/07/2012 04/15/2016 Xerosis cutis 10/07/2012 04/15/2016 Postinflammatory skin changes 10/07/2012 Pituitary adenoma 08/05/2011 04/22/2021 Cholecystitis 07/15/2011 10/10/2013 Overview: [facility] 02/2011- partial CBD obs s/p lap aye Angioma: tongue and other sites 07/07/2011 04/15/2016 Tongue discoloration: angioma and capillary vari cosities 07/07/2011 04/15/2016 Billings angiomas 07/07/2011 04/15/2016 Solar Lentigines 07/07/2011 04/15/2016 Actinic skin damage 07/07/2011 04/15/2016 Melanocytic nevus of trunk: L lower chest 201004/15/2016 Skin tag 07/07/2011 04/15/2016 Routine general medical exam ination at a health care facility 04/22/2009 04/15/2016 Overview: LDL 123 in 08-28 Intermittent RLQ abd pain (roughly started in 12-31): no findings on exam in 04-30 Creat 0.6 in 04-30 documented as of this encounter (statuses as of 05/04/2022) [facility]01-[facility] History of Past illness Narrative* Problem Noted Date Resolved Date Acute bilateral low back pain without sciatica 0 11/26/2020 01/23/2021 Contact dermatitis and other eczema due to other specified agent 10/07/2012 04/15/2016 Eczematous dermatitis 10/07/2012 04/15/2016 Xerosis cutis 10/07/2012 04/15/2016 Postinflammatory skin changes 10/07/2012 Pituitary adenoma 08/05/2011 04/22/2021 Cholecystitis 07/15/2011 10/10/2013 Overview: [facility] 02/2011- partial CBD obs s/p lap aye Angioma: tongue and other sites 07/07/2011 04/15/2016 Tongue discoloration: angioma and capillary vari cosities 07/07/2011 04/15/2016 [place] angiomas 07/07/2011 04/15/2016 Solar Lentigines 07/07/2011 04/15/2016 Actinic skin damage 07/07/2011 04/15/2016 Melanocytic nevus of trunk: L lower chest 201004/15/2016 Skin tag 07/07/2011 04/15/2016 Routine general medical exam ination at a health care facility 04/22/2009 04/15/2016 Overview: LDL 123 in 08-28 Intermittent RLQ abd pain (roughly started in 12-31): no findings on exam in 04-30 Creat 0.6 in 04-30 documented as of this encounter (statuses as of 05/12/2022) [facility]01-[facility] History of Past illness Narrative* Problem Noted Date Resolved Date Acute bilateral low back pain without sciatica 0 11/26/2020 01/23/2021 Contact dermatitis and other eczema due to other specified agent 10/07/2012 04/15/2016 Eczematous dermatitis 10/07/2012 04/15/2016 Xerosis cutis 10/07/2012 04/15/2016 Postinflammatory skin changes 10/07/2012 Pituitary adenoma 08/05/2011 04/22/2021 Cholecystitis 07/15/2011 10/10/2013 Overview: [facility] 02/2011- partial CBD obs s/p lap yae Angioma: tongue and other sites 07/07/2011 04/15/2016 Tongue discoloration: angioma and capillary vari cosities 07/07/2011 04/15/2016 Bill[place] angiomas 07/07/2011 04/15/2016 Solar Lentigines 07/07/2011 04/15/2016 Actinic skin damage 07/07/2011 04/15/2016 Melanocytic nevus of trunk: L lower chest 201004/15/2016 Skin tag 07/07/2011 04/15/2016 Routine general medical exam ination at a health care facility 04/22/2009 04/15/2016 Overview: LDL 123 in 10- Intermittent RLQ abd pain (roughly started in 12-31): no findings on exam in 04-30 Creat 0.6 in 04-30 documented as of this encounter (statuses as of 05/13/2022) [facility]01-[facility] History of Past illness Narrative* Problem Noted Date Resolved Date Acute bilateral low back pain without sciatica 0 11/26/2020 01/23/2021 Contact dermatitis and other eczema due to other specified agent 10/07/2012 04/15/2016 Eczematous dermatitis 10/07/2012 04/15/2016 Xerosis cutis 10/07/2012 04/15/2016 Postinflammatory skin changes 10/07/2012 Pituitary adenoma 08/05/2011 04/22/2021 Cholecystitis 07/15/2011 10/10/2013 Overview: [facility] 02/2011- partial CBD obs s/p lap aye Angioma: tongue and other sites 07/07/2011 04/15/2016 Tongue discoloration: angioma and capillary vari cosities 07/07/2011 04/15/2016 Bill[place] angiomas 07/07/2011 04/15/2016 Solar Lentigines 07/07/2011 04/15/2016 Actinic skin damage 07/07/2011 04/15/2016 Melanocytic nevus of trunk: L lower chest 201004/15/2016 Skin tag 07/07/2011 04/15/2016 Routine general medical exam ination at a health care facility 04/22/2009 04/15/2016 Overview: LDL 123 in 08-28 Intermittent RLQ abd pain (roughly started in 12-31): no findings on exam in 04-30 Creat 0.6 in 04-30 documented as of this encounter (statuses as of 05/13/2022) [facility]01[facility] History of Past illness Narrative* Problem Noted Date Resolved Date Acute bilateral low back pain without sciatica 0 11/26/2020 01/23/2021 Contact dermatitis and other eczema due to other specified agent 10/07/2012 04/15/2016 Eczematous dermatitis 10/07/2012 04/15/2016 Xerosis cutis 10/07/2012 04/15/2016 Postinflammatory skin changes 10/07/2012 Pituitary adenoma 08/05/2011 04/22/2021 Cholecystitis 07/15/2011 10/10/2013 Overview: [facility] 02/2011- partial CBD obs s/p lap aye Angioma: tongue and other sites 07/07/2011 04/15/2016 Tongue discoloration: angioma and capillary vari cosities 07/07/2011 04/15/2016 Billings angiomas 07/07/2011 04/15/2016 Solar Lentigines 07/07/2011 04/15/2016 Actinic skin damage 07/07/2011 04/15/2016 Melanocytic nevus of trunk: L lower chest 201004/15/2016 Skin tag 07/07/2011 04/15/2016 Routine general medical exam ination at a health care facility 04/22/2009 04/15/2016 Overview: LDL 123 in 10 Intermittent RLQ abd pain (roughly started in 12-31): no findings on exam in 04-30 Creat 0.6 in 04-30 documented as of this encounter (statuses as of 05/13/2022) [facility]01-[facility] History of Past illness Narrative* Problem Noted Date Resolved Date Acute bilateral low back pain without sciatica 0 11/26/2020 01/23/2021 Contact dermatitis and other eczema due to other specified agent 10/07/2012 04/15/2016 Eczematous dermatitis 10/07/2012 04/15/2016 Xerosis cutis 10/07/2012 04/15/2016 Postinflammatory skin changes 10/07/2012 Pituitary adenoma 08/05/2011 04/22/2021 Cholecystitis 07/15/2011 10/10/2013 Overview: [facility] 02/2011- partial CBD obs s/p lap aye Angioma: tongue and other sites 07/07/2011 04/15/2016 Tongue discoloration: angioma and capillary vari cosities 07/07/2011 04/15/2016 [place] angiomas 07/07/2011 04/15/2016 Solar Lentigines 07/07/2011 04/15/2016 Actinic skin damage 07/07/2011 04/15/2016 Melanocytic nevus of trunk: L lower chest 201004/15/2016 Skin tag 07/07/2011 04/15/2016 Routine general medical exam ination at a health care facility 04/22/2009 04/15/2016 Overview: LDL 123 in 10-07 Intermittent RLQ abd pain (roughly started in 12-31): no findings on exam in 04-30 Creat 0.6 in 04-30 documented as of this encounter (statuses as of 05/15/2022) [facility]01[facility] History of Past illness Narrative* Problem Noted Date Resolved Date Acute bilateral low back pain without sciatica 0 11/26/2020 01/23/2021 Contact dermatitis and other eczema due to other specified agent 10/07/2012 04/15/2016 Eczematous dermatitis 10/07/2012 04/15/2016 Xerosis cutis 10/07/2012 04/15/2016 Postinflammatory skin changes 10/07/2012 Pituitary adenoma 08/05/2011 04/22/2021 Cholecystitis 07/15/2011 10/10/2013 Overview: [facility] 02/2011- partial CBD obs s/p lap aye Angioma: tongue and other sites 07/07/2011 04/15/2016 Tongue discoloration: angioma and capillary vari cosities 07/07/2011 04/15/2016 [place] angiomas 07/07/2011 04/15/2016 Solar Lentigines 07/07/2011 04/15/2016 Actinic skin damage 07/07/2011 04/15/2016 Melanocytic nevus of trunk: L lower chest 201004/15/2016 Skin tag 07/07/2011 04/15/2016 Routine general medical exam ination at a health care facility 04/22/2009 04/15/2016 Overview: LDL 123 in 08-28 Intermittent RLQ abd pain (roughly started in 12-31): no findings on exam in 04-30 Creat 0.6 in 6-09 documented as of this encounter (statuses as of 06/01/2022) [facility]01[facility] History of Past illness Narrative* Problem Noted Date Resolved Date Acute bilateral low back pain without sciatica 0 11/26/2020 01/23/2021 Contact dermatitis and other eczema due to other specified agent 10/07/2012 04/15/2016 Eczematous dermatitis 10/07/2012 04/15/2016 Xerosis cutis 10/07/2012 04/15/2016 Postinflammatory skin changes 10/07/2012 Pituitary adenoma 08/05/2011 04/22/2021 Cholecystitis 07/15/2011 10/10/2013 Overview: [facility] 02/2011- partial CBD obs s/p lap aye Angioma: tongue and other sites 07/07/2011 04/15/2016 Tongue discoloration: angioma and capillary vari cosities 07/07/2011 04/15/2016 [place] angiomas 07/07/2011 04/15/2016 Solar Lentigines 07/07/2011 04/15/2016 Actinic skin damage 07/07/2011 04/15/2016 Melanocytic nevus of trunk: L lower chest 201004/15/2016 Skin tag 07/07/2011 04/15/2016 Routine general medical exam ination at a health care facility 04/22/2009 04/15/2016 Overview: LDL 123 in 08-28 Intermittent RLQ abd pain (roughly started in 12-31): no findings on exam in 04-30 Creat 0.6 in 04-30 documented as of this encounter (statuses as of 06/03/2022) [facility]01[facility] History of Past illness Narrative* Problem Noted Date Resolved Date Acute bilateral low back pain without sciatica 0 11/26/2020 01/23/2021 Contact dermatitis and other eczema due to other specified agent 10/07/2012 04/15/2016 Eczematous dermatitis 10/07/2012 04/15/2016 Xerosis cutis 10/07/2012 04/15/2016 Postinflammatory skin changes 10/07/2012 Pituitary adenoma 08/05/2011 04/22/2021 Cholecystitis 07/15/2011 10/10/2013 Overview: [facility] 02/2011- partial CBD obs s/p lap aye Angioma: tongue and other sites 07/07/2011 04/15/2016 Tongue discoloration: angioma and capillary vari cosities 07/07/2011 04/15/2016 [place] angiomas 07/07/2011 04/15/2016 Solar Lentigines 07/07/2011 04/15/2016 Actinic skin damage 07/07/2011 04/15/2016 Melanocytic nevus of trunk: L lower chest 201004/15/2016 Skin tag 07/07/2011 04/15/2016 Routine general medical exam ination at a health care facility 04/22/2009 04/15/2016 Overview: LDL 123 in 10-07 Intermittent RLQ abd pain (roughly started in 12-31): no findings on exam in 04-30 Creat 0.6 in 04-30 documented as of this encounter (statuses as of 06/15/2022) [facility]01[facility] History of Past illness Narrative* Problem Noted Date Resolved Date Acute bilateral low back pain without sciatica 0 11/26/2020 01/23/2021 Contact dermatitis and other eczema due to other specified agent 10/07/2012 04/15/2016 Eczematous dermatitis 10/07/2012 04/15/2016 Xerosis cutis 10/07/2012 04/15/2016 Postinflammatory skin changes 10/07/2012 Pituitary adenoma 08/05/2011 04/22/2021 Cholecystitis 07/15/2011 10/10/2013 Overview: [facility] 02/2011- partial CBD obs s/p lap aye Angioma: tongue and other sites 07/07/2011 04/15/2016 Tongue discoloration: angioma and capillary vari cosities 07/07/2011 04/15/2016 [place] angiomas 07/07/2011 04/15/2016 Solar Lentigines 07/07/2011 04/15/2016 Actinic skin damage 07/07/2011 04/15/2016 Melanocytic nevus of trunk: L lower chest 201004/15/2016 Skin tag 07/07/2011 04/15/2016 Routine general medical exam ination at a health care facility 04/22/2009 04/15/2016 Overview: LDL 123 in 10-07 Intermittent RLQ abd pain (roughly started in 12-31): no findings on exam in 04-30 Creat 0.6 in 04-30 documented as of this encounter (statuses as of 06/22/2022) [facility]01[facility] History of Past illness Narrative* Problem Noted Date Resolved Date Acute bilateral low back pain without sciatica 0 11/26/2020 01/23/2021 Contact dermatitis and other eczema due to other specified agent 10/07/2012 04/15/2016 Eczematous dermatitis 10/07/2012 04/15/2016 Xerosis cutis 10/07/2012 04/15/2016 Postinflammatory skin changes 10/07/2012 Pituitary adenoma 08/05/2011 04/22/2021 Cholecystitis 07/15/2011 10/10/2013 Overview: [facility] 02/2011- partial CBD obs s/p lap aye Angioma: tongue and other sites 07/07/2011 04/15/2016 Tongue discoloration: angioma and capillary vari cosities 07/07/2011 04/15/2016 [place] angiomas 07/07/2011 04/15/2016 Solar Lentigines 07/07/2011 04/15/2016 Actinic skin damage 07/07/2011 04/15/2016 Melanocytic nevus of trunk: L lower chest 201004/15/2016 Skin tag 07/07/2011 04/15/2016 Routine general medical exam ination at a health care facility 04/22/2009 04/15/2016 Overview: LDL 123 in 08-28 Intermittent RLQ abd pain (roughly started in 12-31): no findings on exam in 04-30 Creat 0.6 in 04-30 documented as of this encounter (statuses as of 06/30/2022) [facility] History of Past illness Narrative* Problem Noted Date Resolved Date Acute bilateral low back pain without sciatica 0 11/26/2020 01/23/2021 Contact dermatitis and other eczema due to other specified agent 10/07/2012 04/15/2016 Eczematous dermatitis 10/07/2012 04/15/2016 Xerosis cutis 10/07/2012 04/15/2016 Postinflammatory skin changes 10/07/2012 Pituitary adenoma 08/05/2011 04/22/2021 Cholecystitis 07/15/2011 10/10/2013 Overview: [facility] 02/2011- partial CBD obs s/p lap aye Angioma: tongue and other sites 07/07/2011 04/15/2016 Tongue discoloration: angioma and capillary vari cosities 07/07/2011 04/15/2016 [place] angiomas 07/07/2011 04/15/2016 Solar Lentigines 07/07/2011 04/15/2016 Actinic skin damage 07/07/2011 04/15/2016 Melanocytic nevus of trunk: L lower chest 201004/15/2016 Skin tag 07/07/2011 04/15/2016 Routine general medical exam ination at a health care facility 04/22/2009 04/15/2016 Overview: LDL 123 in 08-28 Intermittent RLQ abd pain (roughly started in 12-31): no findings on exam in 04-30 Creat 0.6 in 04-30 documented as of this encounter (statuses as of 07/04/2022) [facility] History of Past illness Narrative* Problem Noted Date Resolved Date Acute bilateral low back pain without sciatica 0 11/26/2020 01/23/2021 Contact dermatitis and other eczema due to other specified agent 10/07/2012 04/15/2016 Eczematous dermatitis 10/07/2012 04/15/2016 Xerosis cutis 10/07/2012 04/15/2016 Postinflammatory skin changes 10/07/2012 Pituitary adenoma 08/05/2011 04/22/2021 Cholecystitis 07/15/2011 10/10/2013 Overview: [facility] 02/2011- partial CBD obs s/p lap aye Angioma: tongue and other sites 07/07/2011 04/15/2016 Tongue discoloration: angioma and capillary vari cosities 07/07/2011 04/15/2016 [place] angiomas 07/07/2011 04/15/2016 Solar Lentigines 07/07/2011 04/15/2016 Actinic skin damage 07/07/2011 04/15/2016 Melanocytic nevus of trunk: L lower chest 201004/15/2016 Skin tag 07/07/2011 04/15/2016 Routine general medical exam ination at a health care facility 04/22/2009 04/15/2016 Overview: LDL 123 in 08-28 Intermittent RLQ abd pain (roughly started in 12-31): no findings on exam in 04-30 Creat 0.6 in 04-30 documented as of this encounter (statuses as of 07/15/2022) [facility]01-05-2021 History of Past illness Narrative* Problem Noted Date Resolved Date Acute bilateral low back pain without sciatica 0 11/26/2020 01/23/2021 Contact dermatitis and other eczema due to other specified agent 10/07/2012 04/15/2016 Eczematous dermatitis 10/07/2012 04/15/2016 Xerosis cutis 10/07/2012 04/15/2016 Postinflammatory skin changes 10/07/2012 Pituitary adenoma 08/05/2011 04/22/2021 Cholecystitis 07/15/2011 10/10/2013 Overview: [facility] 02/2011- partial CBD obs s/p lap aye Angioma: tongue and other sites 07/07/2011 04/15/2016 Tongue discoloration: angioma and capillary vari cosities 07/07/2011 04/15/2016 [place] angiomas 07/07/2011 04/15/2016 Solar Lentigines 07/07/2011 04/15/2016 Actinic skin damage 07/07/2011 04/15/2016 Melanocytic nevus of trunk: L lower chest 201004/15/2016 Skin tag 07/07/2011 04/15/2016 Routine general medical exam ination at a health care facility 04/22/2009 04/15/2016 Overview: LDL 123 in 10- Intermittent RLQ abd pain (roughly started in 12-31): no findings on exam in 04-30 Creat 0.6 in 04-30 documented as of this encounter (statuses as of 07/17/2022) [facility]01-05-2021 History of Past illness Narrative* Problem Noted Date Resolved Date Acute bilateral low back pain without sciatica 0 11/26/2020 01/23/2021 Contact dermatitis and other eczema due to other specified agent 10/07/2012 04/15/2016 Eczematous dermatitis 10/07/2012 04/15/2016 Xerosis cutis 10/07/2012 04/15/2016 Postinflammatory skin changes 10/07/2012 Pituitary adenoma 08/05/2011 04/22/2021 Cholecystitis 07/15/2011 10/10/2013 Overview: [facility] 02/2011- partial CBD obs s/p lap aye Angioma: tongue and other sites 07/07/2011 04/15/2016 Tongue discoloration: angioma and capillary vari cosities 07/07/2011 04/15/2016 [place] angiomas 07/07/2011 04/15/2016 Solar Lentigines 07/07/2011 04/15/2016 Actinic skin damage 07/07/2011 04/15/2016 Melanocytic nevus of trunk: L lower chest 201004/15/2016 Skin tag 07/07/2011 04/15/2016 Routine general medical exam ination at a health care facility 04/22/2009 04/15/2016 Overview: LDL 123 in 08-28 Intermittent RLQ abd pain (roughly started in 12-31): no findings on exam in 04-30 Creat 0.6 in 04-30 documented as of this encounter (statuses as of 08/25/2022) [facility]01-[facility]-2021 History of Past illness Narrative* Problem Noted Date Resolved Date Acute bilateral low back pain without sciatica 0 11/26/2020 01/23/2021 Contact dermatitis and other eczema due to other specified agent 10/07/2012 04/15/2016 Eczematous dermatitis 10/07/2012 04/15/2016 Xerosis cutis 10/07/2012 04/15/2016 Postinflammatory skin changes 10/07/2012 Pituitary adenoma 08/05/2011 04/22/2021 Cholecystitis 07/15/2011 10/10/2013 Overview: [facility] 02/2011- partial CBD obs s/p lap aye Angioma: tongue and other sites 07/07/2011 04/15/2016 Tongue discoloration: angioma and capillary vari cosities 07/07/2011 04/15/2016 [place] angiomas 07/07/2011 04/15/2016 Solar Lentigines 07/07/2011 04/15/2016 Actinic skin damage 07/07/2011 04/15/2016 Melanocytic nevus of trunk: L lower chest 201004/15/2016 Skin tag 07/07/2011 04/15/2016 Routine general medical exam ination at a health care facility 04/22/2009 04/15/2016 Overview: LDL 123 in 10 Intermittent RLQ abd pain (roughly started in 12-31): no findings on exam in 04-30 Creat 0.6 in 04-30 documented as of this encounter (statuses as of 10/21/2022) [facility]01-05-2021 History of Past illness Narrative* Problem Noted Date Resolved Date Acute bilateral low back pain without sciatica 0 11/26/2020 01/23/2021 Contact dermatitis and other eczema due to other specified agent 10/07/2012 04/15/2016 Eczematous dermatitis 10/07/2012 04/15/2016 Xerosis cutis 10/07/2012 04/15/2016 Postinflammatory skin changes 10/07/2012 Pituitary adenoma 08/05/2011 04/22/2021 Cholecystitis 07/15/2011 10/10/2013 Overview: [facility] 02/2011- partial CBD obs s/p lap aye Angioma: tongue and other sites 07/07/2011 04/15/2016 Tongue discoloration: angioma and capillary vari cosities 07/07/2011 04/15/2016 [place] angiomas 07/07/2011 04/15/2016 Solar Lentigines 07/07/2011 04/15/2016 Actinic skin damage 07/07/2011 04/15/2016 Melanocytic nevus of trunk: L lower chest 201004/15/2016 Skin tag 07/07/2011 04/15/2016 Routine general medical exam ination at a health care facility 04/22/2009 04/15/2016 Overview: LDL 123 in 10-07 Intermittent RLQ abd pain (roughly started in 12-31): no findings on exam in 04-30 Creat 0.6 in 04-30 documented as of this encounter (statuses as of 10/21/2022) [place] [address]-05-2021 History of Past illness Narrative* Problem Noted Date Resolved Date Acute bilateral low back pain without sciatica 0 11/26/2020 01/23/2021 Contact dermatitis and other eczema due to other specified agent 10/07/2012 04/15/2016 Eczematous dermatitis 10/07/2012 04/15/2016 Xerosis cutis 10/07/2012 04/15/2016 Postinflammatory skin changes 10/07/2012 Pituitary adenoma 08/05/2011 04/22/2021 Cholecystitis 07/15/2011 10/10/2013 Overview: [facility] 02/2011- partial CBD obs s/p lap aye Angioma: tongue and other sites 07/07/2011 04/15/2016 Tongue discoloration: angioma and capillary vari cosities 07/07/2011 04/15/2016 [place] angiomas 07/07/2011 04/15/2016 Solar Lentigines 07/07/2011 04/15/2016 Actinic skin damage 07/07/2011 04/15/2016 Melanocytic nevus of trunk: L lower chest 201004/15/2016 Skin tag 07/07/2011 04/15/2016 Routine general medical exam ination at a health care facility 04/22/2009 04/15/2016 Overview: LDL 123 in 08-28 Intermittent RLQ abd pain (roughly started in 12-31): no findings on exam in 04-30 Creat 0.6 in 04-30 documented as of this encounter (statuses as of 11/15/2022) [facility]01-[facility]-2021 History of Past illness Narrative* Problem Noted Date Resolved Date Acute bilateral low back pain without sciatica 0 11/26/2020 01/23/2021 Contact dermatitis and other eczema due to other specified agent 10/07/2012 04/15/2016 Eczematous dermatitis 10/07/2012 04/15/2016 Xerosis cutis 10/07/2012 04/15/2016 Postinflammatory skin changes 10/07/2012 Pituitary adenoma 08/05/2011 04/22/2021 Cholecystitis 07/15/2011 10/10/2013 Overview: [facility] 02/2011- partial CBD obs s/p lap aye Angioma: tongue and other sites 07/07/2011 04/15/2016 Tongue discoloration: angioma and capillary vari cosities 07/07/2011 04/15/2016 [place] angiomas 07/07/2011 04/15/2016 Solar Lentigines 07/07/2011 04/15/2016 Actinic skin damage 07/07/2011 04/15/2016 Melanocytic nevus of trunk: L lower chest 201004/15/2016 Skin tag 07/07/2011 04/15/2016 Routine general medical exam ination at a health care facility 04/22/2009 04/15/2016 Overview: LDL 123 in 08-28 Intermittent RLQ abd pain (roughly started in 12-31): no findings on exam in 04-30 Creat 0.6 in 04-30 documented as of this encounter (statuses as of 02/24/2023) [facility]01-[facility]2021 History of Past illness Narrative* Problem Noted Date Resolved Date Acute bilateral low back pain without sciatica 0 11/26/2020 01/23/2021 Contact dermatitis and other eczema due to other specified agent 10/07/2012 04/15/2016 Eczematous dermatitis 10/07/2012 04/15/2016 Xerosis cutis 10/07/2012 04/15/2016 Postinflammatory skin changes 10/07/2012 Pituitary adenoma 08/05/2011 04/22/2021 Cholecystitis 07/15/2011 10/10/2013 Overview: [facility] 02/2011- partial CBD obs s/p lap aye Angioma: tongue and other sites 07/07/2011 04/15/2016 Tongue discoloration: angioma and capillary vari cosities 07/07/2011 04/15/2016 [place] angiomas 07/07/2011 04/15/2016 Solar Lentigines 07/07/2011 04/15/2016 Actinic skin damage 07/07/2011 04/15/2016 Melanocytic nevus of trunk: L lower chest 201004/15/2016 Skin tag 07/07/2011 04/15/2016 Routine general medical exam ination at a health care facility 04/22/2009 04/15/2016 Overview: LDL 123 in 10 Intermittent RLQ abd pain (roughly started in 12-31): no findings on exam in 04-30 Creat 0.6 in 04-30 documented as of this encounter (statuses as of 03/08/2023) [facility]01-05-2021 History of Past illness Narrative* Problem Noted Date Resolved Date Acute bilateral low back pain without sciatica 0 11/26/2020 01/23/2021 Contact dermatitis and other eczema due to other specified agent 10/07/2012 04/15/2016 Eczematous dermatitis 10/07/2012 04/15/2016 Xerosis cutis 10/07/2012 04/15/2016 Postinflammatory skin changes 10/07/2012 Pituitary adenoma 08/05/2011 04/22/2021 Cholecystitis 07/15/2011 10/10/2013 Overview: [facility] 02/2011- partial CBD obs s/p lap aye Angioma: tongue and other sites 07/07/2011 04/15/2016 Tongue discoloration: angioma and capillary vari cosities 07/07/2011 04/15/2016 [place] angiomas 07/07/2011 04/15/2016 Solar Lentigines 07/07/2011 04/15/2016 Actinic skin damage 07/07/2011 04/15/2016 Melanocytic nevus of trunk: L lower chest 201004/15/2016 Skin tag 07/07/2011 04/15/2016 Routine general medical exam ination at a health care facility 04/22/2009 04/15/2016 Overview: LDL 123 in 10-07 Intermittent RLQ abd pain (roughly started in 12-31): no findings on exam in 04-30 Creat 0.6 in 04-30 documented as of this encounter (statuses as of 03/17/2023) [facility]01-[facility]-2021 History of Past illness Narrative* Problem Noted Date Resolved Date Acute bilateral low back pain without sciatica 0 11/26/2020 01/23/2021 Contact dermatitis and other eczema due to other specified agent 10/07/2012 04/15/2016 Eczematous dermatitis 10/07/2012 04/15/2016 Xerosis cutis 10/07/2012 04/15/2016 Postinflammatory skin changes 10/07/2012 Pituitary adenoma 08/05/2011 04/22/2021 Cholecystitis 07/15/2011 10/10/2013 Overview: [facility] 02/2011- partial CBD obs s/p lap aye Angioma: tongue and other sites 07/07/2011 04/15/2016 Tongue discoloration: angioma and capillary vari cosities 07/07/2011 04/15/2016 [place] angiomas 07/07/2011 04/15/2016 Solar Lentigines 07/07/2011 04/15/2016 Actinic skin damage 07/07/2011 04/15/2016 Melanocytic nevus of trunk: L lower chest 201004/15/2016 Skin tag 07/07/2011 04/15/2016 Routine general medical exam ination at a health care facility 04/22/2009 04/15/2016 Overview: LDL 123 in 08-28 Intermittent RLQ abd pain (roughly started in 12-31): no findings on exam in 04-30 Creat 0.6 in 04-30 documented as of this encounter (statuses as of 05/07/2023) [facility]01-05-2021 History of Past illness Narrative* Problem Noted Date Diagnosed Date Resolved Date Acute bilateral low back laura n without sciatica 11/26/2020 01/23/2021 Contact dermatitis and other eczema due to other specified agent 10/07/2012 04/15/2016 Eczematous dermatitis 10/07/20122015 Xerosis cutis 10/07/2012 04/15/2016 Postinflammatory skin changes 10/07/2012 04/15/2016 Pituitary adenoma 08/05/2011 04/22/2021 Cholecystitis 07/15/2011 10/10/2013 Overview: [facility] 02/2011- partial CBD obs s/p lap aye Angioma: tongue and other sites 07/07/2011 04/15/2016 Tongue discoloration: angiom a and capillary varicosities 07/07/2011 04/15/2016 [place] angiomas 07/07/2011 04/15/2016 Solar Lentigines 07/07/2011 04/15/2016 Actinic skin damage 07/07/2011 04/15/20 16 Melanocytic nevus of trunk: L lower chest 07/07/2011 04/15/2016 Skin tag 07/07/2011 04/15/2016 Routine general medical exam ination at a health care facility 04/22/2009 04/15/2016 Overview: LDL 123 in 08-28 Intermittent RLQ abd pain (roughly started in 12-31): no findings on exam in 04-30 Creat 0.6 in 04-30 documented as of this encounter (statuses as of 08/03/2023) [facility]01-[facility]-2021 History of Past illness Narrative* Problem Noted Date Diagnosed Date Resolved Date Acute bilateral low back laura n without sciatica 11/26/2020 01/23/2021 Contact dermatitis and other eczema due to other specified agent 10/07/2012 04/15/2016 Eczematous dermatitis 10/07/20122015 Xerosis cutis 10/07/2012 04/15/2016 Postinflammatory skin changes 10/07/2012 04/15/2016 Pituitary adenoma 08/05/2011 04/22/2021 Cholecystitis 07/15/2011 10/10/2013 Overview: [facility] 02/2011- partial CBD obs s/p lap aye Angioma: tongue and other sites 07/07/2011 04/15/2016 Tongue discoloration: angiom a and capillary varicosities 07/07/2011 04/15/2016 [place] angiomas 07/07/2011 04/15/2016 Solar Lentigines 07/07/2011 04/15/2016 Actinic skin damage 07/07/2011 04/15/20 16 Melanocytic nevus of trunk: L lower chest 07/07/2011 04/15/2016 Skin tag 07/07/2011 04/15/2016 Routine general medical exam ination at a health care facility 04/22/2009 04/15/2016 Overview: LDL 123 in 10- Intermittent RLQ abd pain (roughly started in 12-31): no findings on exam in 04-30 Creat 0.6 in 04-30 documented as of this encounter (statuses as of 08/09/2023) [facility]01-[facility]2021 History of Past illness Narrative* Problem Noted Date Diagnosed Date Resolved Date Acute bilateral low back laura n without sciatica 11/26/2020 01/23/2021 Contact dermatitis and other eczema due to other specified agent 10/07/2012 04/15/2016 Eczematous dermatitis 10/07/20122015 Xerosis cutis 10/07/2012 04/15/2016 Postinflammatory skin changes 10/07/2012 04/15/2016 Cholecystitis 07/15/2011 10/10/2013 Overview: [facility] 02/2011- partial CBD obs s/p lap aye Angioma: tongue and other sites 07/07/2011 04/15/2016 Tongue discoloration: angiom a and capillary varicosities 07/07/2011 04/15/2016 [place] angiomas 07/07/2011 04/15/2016 Solar Lentigines 07/07/2011 04/15/2016 Actinic skin damage 07/07/2011 04/15/20 16 Melanocytic nevus of trunk: L lower chest 07/07/2011 04/15/2016 Skin tag 07/07/2011 04/15/2016 Open wound of leg with complication 04/23/2010 09/23/2023 Routine general medical exam ination at a health care facility 04/22/2009 04/15/2016 Overview: LDL 123 in 08-28 Intermittent RLQ abd pain (roughly started in 12-31): no findings on exam in 04-30 Creat 0.6 in 04-30 documented as of this encounter (statuses as of 10/08/2023) [facility] Chronic bilateral low back pain without sciatica- Primary Chronic pain of both hips Fall in home, initial encounter [facility] Diagnosis Vaginal irritation- Primary Unspecified noninflammatory disorder of vagina [facility] Diagnosis Hypopituitarism (HCC)- Primary Panhypopituitarism Essential hypertension Unspecified essential hypertension Mixed hyperlipidemia [facility] Diagnosis Leukocytosis, unspecified type- Primary Abdominal pain, generalized [facility]* Diagnosis Leukocytosis, unspecified type [facility] Diagnosis Neutrophilia- Primary Other specified disease of white blood cells [facility] Diagnosis Vaginal disorder- Primary Unspecified noninflammatory disorder of vagina [facility] Diagnosis Neutrophilia- Primary Other specified disease of white blood cells Leukocytosis, unspecified type [facility] Diagnosis Leukocytosis, unspecified type- Primary Neutrophilia Other specified disease of white blood cells Essential hypertension Unspecified essential hypertension Mixed hyperlipidemia Hypopituitarism (HCC) Panhypopituitarism Gastroesophageal reflux disease without esophagitis Esophageal reflux Stage 3a chronic kidney disease (HCC) Vaginal irritation Unspecified noninflammatory disorder of vagina [facility] Diagnosis Neutrophilia- Primary Other specified disease of white blood cells Leukocytosis, unspecified type [facility] Diagnosis Fall, subsequent encounter- Primary Closed fracture of right side of maxilla with routine healing, subsequent encounter Closed fracture of orbit with routine healing, subsequent encounter Laceration of right hand without foreign body, subsequent encounter Facial laceration, subsequent encounter [facility] this [facility]* Diagnosis Wrist pain, right- Primary Pain in joint, forearm Hand pain, right Pain in limb Screening mammogram for breast cancer [facility] Diagnosis Right wrist pain- Primary Pain in joint, forearm [facility] Diagnosis Acute cough- Primary Expiratory wheezing [facility]* Diagnosis Hypopituitarism (HCC) Panhypopituitarism Gastroesophageal reflux disease without esophagitis Esophageal reflux [facility] Diagnosis Essential hypertension- Primary Unspecified essential hypertension Hypopituitarism (HCC) Panhypopituitarism Glucocorticoid deficiency (HCC) Glucocorticoid deficiency Senile osteoporosis [facility] Diagnosis Pituitary adenoma (HCC)- Primary Benign neoplasm of pituitary gland and craniopharyngeal duct (pouch) [facility] Diagnosis Vaginal discharge- Primary Leukorrhea, not specified as infective Vaginal itching Pruritus of genital organs [facility] this [facility] Diagnostic Procedure Only (Routine) - Pending Review Specialty Diagnoses / Procedures Referred By Mallory t Referred To Contact BR IMAGING Diagnoses Screening mammogram for breast cancer Procedures JOON SCREENING SCREENING MAMMOGRAPHY BI 2-VIEW BREAST INC CAD Elan Garcia MD [address] [place] [address] [facility] [address] [place] [address] Referral ID Status Reason Start Date Expiration Date Visits Requested Visits Authorized [id number] Pending Review Auto-Generat ed Referral 08/17/2022 08/16/2023 1 1 * Diagnostic Procedure Only (Routine) - Closed Specialty Diagnoses / Procedures Referred By Mallory t Referred To Contact XR IMAGING Diagnoses Wrist pain, right Hand pain, right Procedures XR HAND GENERAL 3V PA/LAT/OBL RIGHT RADEX HAND MINIMUM 3 VIEWS Elan Garcia MD [address] [place] [address] Xr Imaging Referral ID Status Reason Start Date Expiration Date V isits Requested Visits Authorized [id number] Closed Auto-Generate d Referral 07/17/2022 08/16/2023 1 1 * Diagnostic Procedure Only (Routine) - Closed Specialty Diagnoses / Procedures [facility] Referred To Contact XR IMAGING Diagnoses Wrist pain, right Hand pain, right Procedures XR WRIST GENERAL 3V PA/LAT/OBL RIGHT RADEX WRIST COMPLETE MINIMUM 3 VIEWS Elan Garcia MD [address] [place] [address] Xr Imaging Referral ID Status Reason Start Date Expiration Date V isits Requested Visits Authorized [id number] Closed Auto-Generate d Referral 07/17/2022 08/16/2023 1 1 [facility] Summary Purpose Family History No Family History Records FoundNo Family History Records Found Advance Directives No Advanced Directives Records FoundDocuments on File Type Date Recorded 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 Advance Directive(s) 06/23/2019 8:51 AM Advance Directive(s) 10/28/2018 9:24 AM Advance Directive(s) 07/21/2017 9:15 AM Documents on File Type Date Recorded 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 Advance Directive(s) 06/23/2019 8:51 AM Advance Directive(s) 10/28/2018 9:24 AM Advance Directive(s) 07/21/2017 9:15 AM Reason for Referral Specialty Diagnoses / Procedures Referred By Contac t Referred To Contact Pain Management Diagnoses Chronic bilateral low back pain without sciatica Chronic pain of both hips Procedures CONSULT TO PAIN MGT OFFICE/OUTPATIENT [facility] 60-74 MINUTES Elan Garcia MD [address] [place] [id number] Referral ID Status Reason Start Date Expiration Date Visits Requested Visits Authorized [id number] Authorized PCP Requested Referral 03/20/2022 03/20/2023 1 1 Specialty Diagnoses / Procedures Referred By Contac t Referred To Contact XR IMAGING Diagnoses Chronic pain of both hips Procedures XR HIP BILATERAL 5V PEL/AP/LAT EACH HIP RADEX HIPS BILATERAL WITH PELVIS MINIMUM 5 VIEWS Elan Garcia MD [address] [place] [id number] Xr Imaging Referral ID Status Reason Start Date Expiration Date V isits Requested Visits Authorized [id number] Closed Auto-Generate d Referral 03/20/2022 2023 1 1 Specialty Diagnoses / Procedures Referred By Contac t Referred To Contact XR IMAGING Diagnoses Chronic bilateral low back pain without sciatica Procedures XR LUMBAR GENERAL 3V AP/LAT/L5-S1 RADEX SPINE LUMBOSACRAL 2/3 VIEWS Elan Garcia MD [address] [place] [address] Xr Imaging Referral ID Status Reason Start Date Expiration Date V isits Requested Visits Authorized [id number] Closed Auto-Generate d Referral 03/20/2022 2023 1 1 Specialty Diagnoses / Procedures Referred By Contac t Referred To Contact CT IMAGING Diagnoses Leukocytosis, unspecified type Procedures CT ABD/PEL WO IVCON CT ABD & PELVIS W/O CONTRAST Elan Garcia MD [address] [place] [address] Ct Imaging Referral ID Status Reason Start Date Expiration Date Visits Requested Visits Authorized [id number] Pending Review Auto-Genera marily Referral Patient Cleared - Admin/Chair man/Directo r advise to proceed 05/11/2022 06/10/2023 2 2 Referral ID Status Reason Start Date Expiration Date Visits Requested Visits Authorized [id number] Authorized Auto-Generat ed Referral Patient Cleared - Admin/Chairm an/Director advise to proceed 05/12/2022 06/11/2022 2 2 Specialty Diagnoses / Procedures Referred By Contac t Referred To Contact Gynecology Diagnoses Vaginal disorder Procedures CONSULT TO GYNECOLOGY OFFICE/OUTPATIENT [facility] 60-74 MINUTES PodlogNancy walter APRN.CNP [address] [place] [address] Referral ID Status Reason Start Date Expiration Date Visits Requested Visits Authorized [id number] Authorized PCP Requested Referral Auto-Generate d Referral 05/15/2022 05/15/2023 1 1 Specialty Diagnoses / Procedures Referred By Contac t Referred To Contact Hematology Diagnoses Neutrophilia Leukocytosis, unspecified type Procedures CONSULT TO HEMATOLOGY OFFICE/OUTPATIENT [facility] 60-74 MINUTES Elan Garcia MD [address] [place] [id number] Referral ID Status Reason Start Date Expiration Date Visits Requested Visits Authorized [id number] Authorized PCP Requested Referral 06/03/2022 06/03/2023 1 1 Specialty Diagnoses / Procedures Referred By Contac t Referred To Contact MR IMAGING Diagnoses Right wrist pain Procedures MRI WRIST WO IVCON RT MRI ANY JT UPPER EXTREMITY [place] [address] [place] [id number] Mr Imaging Referral ID Status Reason Start Date Expiration Date Visits Requested Visits Authorized [id number] Pending Review Auto-Generat ed Referral 07/20/2022 08/19/2023 1 1 Additional Source Comments INFORMATION SOURCE (unrecogn ized section and content) DATE CREATED AUTHOR AUTHOR'S ORGANPANFILO ATION 10/10/2023 [facility] Source Comments (unrecognize d section and content) In the event this informatio n is protected by the Federal Confidentiality of Alcohol and Drug Abuse Patient Records regulations: The Federal rules restrict any use of the information to criminally investigate or prosecute any alcohol or drug abuse patient.[facility] the event this information is protected by the Federal Confidentiality of Alcohol and Drug Abuse Patient Records regulations: The Federal rules restrict any use of the information to criminally investigate or prosecute any alcohol or drug abuse patient.[facility] the event this information is protected by the Federal Confidentiality of Alcohol and Drug Abuse Patient Records regulations: The Federal rules restrict any use of the information to criminally investigate or prosecute any alcohol or drug abuse patient.[facility] the event this information is protected by the Federal Confidentiality of Alcohol and Drug Abuse Patient Records regulations: The Federal rules restrict any use of the information to criminally investigate or prosecute any alcohol or drug abuse patient.[facility] the event this information is protected by the Federal Confidentiality of Alcohol and Drug Abuse Patient Records regulations: The Federal rules restrict any use of the information to criminally investigate or prosecute any alcohol or drug abuse patient.[facility]In the event this information is protected by the Federal Confidentiality of Alcohol and Drug Abuse Patient Records regulations: The Federal rules restrict any use of the information to criminally investigate or prosecute any alcohol or drug abuse patient.[facility] ColumbusIn the event this information is protected by the Federal Confidentiality of Alcohol and Drug Abuse Patient Records regulations: The Federal rules restrict any use of the information to criminally investigate or prosecute any alcohol or drug abuse patient.[facility] the event this information is protected by the Federal Confidentiality of Alcohol and Drug Abuse Patient Records regulations: The Federal rules restrict any use of the information to criminally investigate or prosecute any alcohol or drug abuse patient.[facility] the event this information is protected by the Federal Confidentiality of Alcohol and Drug Abuse Patient Records regulations: The Federal rules restrict any use of the information to criminally investigate or prosecute any alcohol or drug abuse patient.[facility]In the event this information is protected by the Federal Confidentiality of Alcohol and Drug Abuse Patient Records regulations: The Federal rules restrict any use of the information to criminally investigate or prosecute any alcohol or drug abuse patient.[facility]In the event this information is protected by the Federal Confidentiality of Alcohol and Drug Abuse Patient Records regulations: The Federal rules restrict any use of the information to criminally investigate or prosecute any alcohol or drug abuse patient.[facility] the event this information is protected by the Federal Confidentiality of Alcohol and Drug Abuse Patient Records regulations: The Federal rules restrict any use of the information to criminally investigate or prosecute any alcohol or drug abuse patient.[facility]In the event this information is protected by the Federal Confidentiality of Alcohol and Drug Abuse Patient Records regulations: The Federal rules restrict any use of the information to criminally investigate or prosecute any alcohol or drug abuse patient.[facility]In the event this information is protected by the Federal Confidentiality of Alcohol and Drug Abuse Patient Records regulations: The Federal rules restrict any use of the information to criminally investigate or prosecute any alcohol or drug abuse patient.[facility] ColumbusIn the event this information is protected by the Federal Confidentiality of Alcohol and Drug Abuse Patient Records regulations: The Federal rules restrict any use of the information to criminally investigate or prosecute any alcohol or drug abuse patient.[facility]In the event this information is protected by the Federal Confidentiality of Alcohol and Drug Abuse Patient Records regulations: The Federal rules restrict any use of the information to criminally investigate or prosecute any alcohol or drug abuse patient.[facility] ColumbusIn the event this information is protected by the Federal Confidentiality of Alcohol and Drug Abuse Patient Records regulations: The Federal rules restrict any use of the information to criminally investigate or prosecute any alcohol or drug abuse patient.[facility] ColumbusIn the event this information is protected by the Federal Confidentiality of Alcohol and Drug Abuse Patient Records regulations: The Federal rules restrict any use of the information to criminally investigate or prosecute any alcohol or drug abuse patient.[facility] ColumbusIn the event this information is protected by the Federal Confidentiality of Alcohol and Drug Abuse Patient Records regulations: The Federal rules restrict any use of the information to criminally investigate or prosecute any alcohol or drug abuse patient.[facility] ColumbusIn the event this information is protected by the Federal Confidentiality of Alcohol and Drug Abuse Patient Records regulations: The Federal rules restrict any use of the information to criminally investigate or prosecute any alcohol or drug abuse patient.[facility] ColumbusIn the event this information is protected by the Federal Confidentiality of Alcohol and Drug Abuse Patient Records regulations: The Federal rules restrict any use of the information to criminally investigate or prosecute any alcohol or drug abuse patient.[facility] ColumbusIn the event this information is protected by the Federal Confidentiality of Alcohol and Drug Abuse Patient Records regulations: The Federal rules restrict any use of the information to criminally investigate or prosecute any alcohol or drug abuse patient.[facility]In the event this information is protected by the Federal Confidentiality of Alcohol and Drug Abuse Patient Records regulations: The Federal rules restrict any use of the information to criminally investigate or prosecute any alcohol or drug abuse patient.[facility]In the event this information is protected by the Federal Confidentiality of Alcohol and Drug Abuse Patient Records regulations: The Federal rules restrict any use of the information to criminally investigate or prosecute any alcohol or drug abuse patient.[facility]In the event this information is protected by the Federal Confidentiality of Alcohol and Drug Abuse Patient Records regulations: The Federal rules restrict any use of the information to criminally investigate or prosecute any alcohol or drug abuse patient.[facility]In the event this information is protected by the Federal Confidentiality of Alcohol and Drug Abuse Patient Records regulations: The Federal rules restrict any use of the information to criminally investigate or prosecute any alcohol or drug abuse patient.[facility] ColumbusIn the event this information is protected by the Federal Confidentiality of Alcohol and Drug Abuse Patient Records regulations: The Federal rules restrict any use of the information to criminally investigate or prosecute any alcohol or drug abuse patient.[facility]In the event this information is protected by the Federal Confidentiality of Alcohol and Drug Abuse Patient Records regulations: The Federal rules restrict any use of the information to criminally investigate or prosecute any alcohol or drug abuse patient.[facility] ColumbusIn the event this information is protected by the Federal Confidentiality of Alcohol and Drug Abuse Patient Records regulations: The Federal rules restrict any use of the information to criminally investigate or prosecute any alcohol or drug abuse patient.[facility] Reason for Visit (unrecogniz ed section and content) Reason Comments Vaginal Problem irritation x3 months Reason Comments Results Reason Comments Lab Orders Reason Comments labs coming from Dr Sung office Reason Comments Results Endo lab questions a nd concerns Reason Comments Radiology CT Specialty Diagnoses / Procedures Referred By Contac t Referred To Contact CT IMAGING Diagnoses Leukocytosis, unspecified type Procedures CT ABD/PEL WO IVCON CT ABD & PELVIS W/O CONTRAST Elan Garcia MD [address] [place] [address] Ct Imaging Referral ID Status Reason Start Date Expiration Date Visits Requested Visits Authorized [id number] Authorized Auto-Generat ed Referral Patient Cleared - Admin/Chairm an/Director advise to proceed 05/12/2022 06/11/2022 2 2 Reason Comments Orders Reason Comments F/U 6 months Reason Comments New Patient Evaluation Specialty Diagnoses / Procedures Referred By Mallory lopez Referred To Contact Hematology Diagnoses Neutrophilia Leukocytosis, unspecified type Procedures CONSULT TO HEMATOLOGY OFFICE/OUTPATIENT NEW HIGH MDM 60-74 MINUTES Elan Garcia MD [address] [place] [address] Referral ID Status Reason Start Date Expiration Date V isits Requested Visits Authorized [id number] Closed PCP Requested Referral 06/03/2022 06/03/2023 1 1 Reason Comments ED Follow-up Fall Suture Removal Reason Comments Patient Update Reason Comments Results BCR/ABL Negative Reason Comments Erroneous encounter-disregard Reason Comments Pain Right wrist and hand x 5 weeks Reason Comments Results Reason Comments Cough X10 days Reason Onset Date Comments Refill Request 02/24/2023 Reason Comments F/U 6 Month Reason Comments New Patient Reason Comments Vaginal Problem Discharge since last week Reason Comments medication replacement request Care Teams (unrecognized sec tion and content) Head Start Assistant Teacher Relationship Specialty Start Date End Date Elna Garcia MD [address] [place] [address] PCP - General Family Practice 10/23/20 Head Start Assistant Teacher Relationship Specialty Start Date End Date Elan Garcia MD [address] [place] [address] PCP - General Family Practice 10/23/20 Head Start Assistant Teacher Relationship Specialty Start Date End Date Elan Garcia MD [address] [place] [address] PCP - General Family Practice 10/23/20 Head Start Assistant Teacher Relationship Specialty Start Date End Date Elan Garcia MD [address] [place] [address] PCP - General Family Practice 10/23/20 Head Start Assistant Teacher Relationship Specialty Start Date End Date Elan Garcia MD [facility] [place] [address] PCP - General Family Practice 10/23/20 Head Start Assistant Teacher Relationship Specialty Start Date End Date Elan Garcia MD [address] [place] [address] PCP - General Family Practice 10/23/20 Head Start Assistant Teacher Relationship Specialty Start Date End Date Elan Garcia MD [address] [place] [address] PCP - General Family Practice 10/23/20 Head Start Assistant Teacher Relationship Specialty Start Date End Date Elan Garcia MD [address] [place] [address] PCP - General Family Practice 10/23/20 Head Start Assistant Teacher Relationship Specialty Start Date End Date Elan Garcia MD [facility] [place] [address] PCP - General Family Practice 10/23/20 Head Start Assistant Teacher Relationship Specialty Start Date End Date Elan Garcia MD [address] [place] [address] PCP - General Family Practice 10/23/20 Head Start Assistant Teacher Relationship Specialty Start Date End Date Elan Garcia MD [address] [place] [address] PCP - General Family Practice 10/23/20 Head Start Assistant Teacher Relationship Specialty Start Date End Date Elan Garcia MD [address] [place] [address] PCP - General Family Practice 10/23/20 Head Start Assistant Teacher Relationship Specialty Start Date End Date Elan Garcia MD [address] [place] [address] PCP - General Family Medicine 10/23/20 Head Start Assistant Teacher Relationship Specialty Start Date End Date Elan Garcia MD [address] [place] [address] PCP - General Family Medicine 10/23/20 Head Start Assistant Teacher Relationship Specialty Start Date End Date Elan Garcia MD [address] [place] [address] PCP - General Family Medicine 10/23/20 Head Start Assistant Teacher Relationship Specialty Start Date End Date Elan Garcia MD [address] [place] [address] PCP - General Family Medicine 10/23/20 Head Start Assistant Teacher Relationship Specialty Start Date End Date Elan Garcia MD [address] [place] [address] PCP - General Family Medicine 10/23/20 Head Start Assistant Teacher Relationship Specialty Start Date End Date Elan Garcia MD [address] [place] [address] PCP - General Family Medicine 10/23/20 Head Start Assistant Teacher Relationship Specialty Start Date End Date Elan Garcia MD [address] [place] [address] PCP - General Family Medicine 10/23/20 Head Start Assistant Teacher Relationship Specialty Start Date End Date Elan Garcia MD [address] [place] [address] PCP - General Family Medicine 10/23/20 Head Start Assistant Teacher Relationship Specialty Start Date End Date Elan Garcia MD [address] [place] [address], [place] [address] PCP - General Family Medicine 10/23/20 FOR RECORDS PERTAINING TO PATIENTS WHO ARE OR HAVE BEEN ENROLLED IN A CHEMICAL DEPENDENCY/SUBSTANCEABUSE PROGRAM, SOME INFORMATION MAY BE OMITTED. This clinical summary was aggregated from multiple sources. Caution should be exercised in using it in the provision of clinical care. This summary normalizes information from multiple sources, and as a consequence, information in this document may materially change the coding, format and clinical context of patient data. In addition, data may be omitted in some cases. CLINICAL DECISIONS SHOULD BE BASED ON THE PRIMARY CLINICAL RECORDS. [facility] [employer] [facility]. provides no warranty or guarantee of the accuracy or completeness of information in this document.
== END 2023-11-19 10:24 | disposition home or self-care (01) ==
PROVIDERS: PCP Family Medicine; Referring Provider Internal Medicine Endocrinology, Diabetes & Metabolism; Visit Provider Internal Medicine Endocrinology, Diabetes & Metabolism
DX: M81.0 Age-related osteoporosis without current pathological fracture (principal)
CPT/HCPCS: 96372; J0897

== ENCOUNTER 2024-01-22 22:46 | Emergency (ER) | payer MEDICARE, SELFPAY ==
[2024-01-22 22:47] VITALS: BP 155/94; PULSE 85; RESP 15; TEMP 36.2; O2SAT 100; BMI 27.0
--- OUTSIDE RECORDS SUMMARY | 2024-01-22 23:16 | XMS RPT_ITS | CCD ---
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 sciatica 0 11/26/2020 01/23/2021 Contact dermatitis and other eczema due to other specified agent 10/07/2012 04/15/2016 Eczematous dermatitis 10/07/2012 04/15/2016 Xerosis cutis 10/07/2012 04/15/2016 Postinflammatory skin changes 10/07/2012 Pituitary adenoma 08/05/2011 04/22/2021 Cholecystitis 07/15/2011 10/10/2013 Overview: [facility] 02/2011- partial CBD obs s/p lap [...] of this encounter (statuses as of 02/24/2023) [facility] History of Past illness Narrative* Problem Noted Date Resolved Date Acute bilateral low back pain without sciatica 0 11/26/2020 01/23/2021 Contact dermatitis and other eczema due to other specified agent 10/07/2012 04/15/2016 Eczematous dermatitis 10/07/2012 04/15/2016 Xerosis cutis 10/07/2012 04/15/2016 Postinflammatory skin changes 10/07/2012 Pituitary adenoma 08/05/2011 04/22/2021 Cholecystitis 07/15/2011 10/10/2013 Overview: [facility] 02/2011- partial CBD obs s/p lap [...] on exam in 04-30 Creat 0.6 in - documented as of this encounter (statuses as of 03/08/2023) [facility] History of Past illness Narrative* Problem Noted Date Resolved Date Acute bilateral low back pain without sciatica 0 11/26/2020 01/23/2021 Contact dermatitis and other eczema due to other specified agent 10/07/2012 04/15/2016 Eczematous dermatitis 10/07/2012 04/15/2016 Xerosis cutis 10/07/2012 04/15/2016 Postinflammatory skin changes 10/07/2012 Pituitary adenoma 08/05/2011 04/22/2021 Cholecystitis 07/15/2011 10/10/2013 Overview: [facility] 02/2011- partial CBD obs s/p lap [...] of this encounter (statuses as of 03/17/2023) [facility] History of Past illness Narrative* Problem Noted Date Resolved Date Acute bilateral low back pain without sciatica 0 11/26/2020 01/23/2021 Contact dermatitis and other eczema due to other specified agent 10/07/2012 04/15/2016 Eczematous dermatitis 10/07/2012 04/15/2016 Xerosis cutis 10/07/2012 04/15/2016 Postinflammatory skin changes 10/07/2012 Pituitary adenoma 08/05/2011 04/22/2021 Cholecystitis 07/15/2011 10/10/2013 Overview: [facility] 02/2011- partial CBD obs s/p lap [...] of this encounter (statuses as of 05/07/2023) [facility] History of Past illness Narrative* Problem Noted Date Diagnosed Date Resolved Date Acute bilateral low back laura n without sciatica 11/26/2020 01/23/2021 Contact dermatitis and other eczema due to other specified agent 10/07/2012 04/15/2016 Eczematous dermatitis 10/07/20122015 Xerosis cutis 10/07/2012 04/15/2016 Postinflammatory skin changes 10/07/2012 04/15/2016 Pituitary adenoma 08/05/2011 04/22/2021 Cholecystitis 07/15/2011 10/10/2013 Overview: [facility] 02/2011- partial CBD obs s/p lap [...] of this encounter (statuses as of 08/03/2023) [facility] History of Past illness Narrative* Problem Noted Date Diagnosed Date Resolved Date Acute bilateral low back laura n without sciatica 11/26/2020 01/23/2021 Contact dermatitis and other eczema due to other specified agent 10/07/2012 04/15/2016 Eczematous dermatitis 10/07/20122015 Xerosis cutis 10/07/2012 04/15/2016 Postinflammatory skin changes 10/07/2012 04/15/2016 Pituitary adenoma 08/05/2011 04/22/2021 Cholecystitis 07/15/2011 10/10/2013 Overview: [facility] 02/2011- partial CBD obs s/p lap [...] of this encounter (statuses as of 08/09/2023) [facility] History of Past illness Narrative* Problem Noted Date Diagnosed Date Resolved Date Acute bilateral low back laura n without sciatica 11/26/2020 01/23/2021 Contact dermatitis and other eczema due to other specified agent 10/07/2012 04/15/2016 Eczematous dermatitis 10/07/20122015 Xerosis cutis 10/07/2012 04/15/2016 Postinflammatory skin changes 10/07/2012 04/15/2016 Cholecystitis 07/15/2011 10/10/2013 Overview: [facility] 02/2011- partial CBD obs s/p lap [...] of this encounter (statuses as of 10/08/2023) [facility] History of Past illness Narrative* Problem Noted Date Diagnosed Date Resolved Date Acute bilateral low back laura n without sciatica 11/26/2020 01/23/2021 Contact dermatitis and other eczema due to other specified agent 10/07/2012 04/15/2016 Eczematous dermatitis 10/07/20122015 Xerosis cutis 10/07/2012 04/15/2016 Postinflammatory skin changes 10/07/2012 04/15/2016 Cholecystitis 07/15/2011 10/10/2013 Overview: [facility] 02/2011- partial CBD obs s/p lap [...] as of this encounter (statuses as of 01/04/2024) [facility] History of Past illness Narrative* Problem Noted Date Diagnosed Date Resolved Date Acute bilateral low back laura n without sciatica 11/26/2020 01/23/2021 Contact dermatitis and other eczema due to other specified agent 10/07/2012 04/15/2016 Eczematous dermatitis 10/07/20122015 Xerosis cutis 10/07/2012 04/15/2016 Postinflammatory skin changes 10/07/2012 04/15/2016 Cholecystitis 07/15/2011 10/10/2013 Overview: [facility] 02/2011- partial CBD obs s/p lap [...] as of this encounter (statuses as of 01/05/2024) [facility] Chronic bilateral low back pain without sciatica- Primary Chronic pain of both hips Fall in home, initial encounter documented [facility] encounter [facility] Diagnosis Vaginal irritation- Primary Unspecified noninflammatory disorder of vagina [facility] Diagnosis Hypopituitarism (HCC)- Primary Panhypopituitarism Essential hypertension Unspecified essential hypertension Mixed hyperlipidemia [facility] Diagnosis Leukocytosis, unspecified type- Primary Abdominal pain, generalized [facility] Diagnosis Leukocytosis, unspecified type [facility] Diagnosis Neutrophilia- Primary Other specified disease of white blood cells [facility] Diagnosis Vaginal disorder- Primary Unspecified noninflammatory disorder of vagina [facility] Diagnosis Neutrophilia- Primary Other specified disease of white blood cells Leukocytosis, unspecified type [facility] Diagnosis Leukocytosis, unspecified type- Primary Neutrophilia Other specified disease of white blood cells Essential hypertension Unspecified essential hypertension Mixed hyperlipidemia Hypopituitarism (HCC) Panhypopituitarism Gastroesophageal reflux disease without esophagitis Esophageal reflux Stage 3a chronic kidney disease (HCC) Vaginal irritation Unspecified noninflammatory disorder of vagina [facility] Diagnosis Neutrophilia- Primary Other specified disease of white blood cells Leukocytosis, unspecified type [facility] Diagnosis Fall, subsequent encounter- Primary Closed fracture of right side of maxilla with routine healing, subsequent encounter Closed fracture of orbit with routine healing, subsequent encounter Laceration of right hand without foreign body, subsequent encounter Facial laceration, subsequent encounter [facility] Diagnosis Wrist pain, right- Primary Pain in joint, forearm Hand pain, right Pain in limb Screening [facility] for [facility] Diagnosis Right wrist pain- Primary Pain in joint, forearm [facility] Diagnosis Acute cough- Primary Expiratory wheezing [facility] Diagnosis Hypopituitarism (HCC) Panhypopituitarism Gastroesophageal reflux disease without esophagitis Esophageal reflux [facility] Diagnosis Essential hypertension- Primary Unspecified essential hypertension Hypopituitarism (HCC) Panhypopituitarism Glucocorticoid deficiency (HCC) Glucocorticoid deficiency Senile osteoporosis [facility] Diagnosis Pituitary adenoma (HCC)- Primary Benign neoplasm of pituitary gland and craniopharyngeal duct (pouch) [facility] Diagnosis Vaginal discharge- Primary Leukorrhea, not specified as infective Vaginal itching Pruritus of genital organs [facility] Diagnosis 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 Pain in [place], right [facility] this [facility] Diagnostic Procedure Only (Routine) - Pending Review Specialty Diagnoses / Procedures Referred By Contac t Referred To Contact BR IMAGING Diagnoses Screening mammogram for breast cancer Procedures JOON SCREENING SCREENING MAMMOGRAPHY BI 2-VIEW BREAST INC CAD Elan Garcia MD [address] [place] [address] [facility] [address] [place] [address] Referral ID Status Reason Start Date Expiration Date Visits Requested Visits Authorized [id number] Pending Review Auto-Generat ed Referral 08/17/2022 08/16/2023 1 1 * Diagnostic Procedure Only (Routine) - Closed Specialty Diagnoses / Procedures Referred By Rolandac t Referred To Contact XR IMAGING Diagnoses Wrist pain, right Hand pain, right Procedures XR HAND GENERAL 3V PA/LAT/OBL RIGHT RADEX HAND MINIMUM 3 VIEWS Elan Garcia MD [address] [place] [address] Xr Imaging Referral ID Status Reason Start Date Expiration Date V isits Requested Visits Authorized [id number] Closed Auto-Generate d Referral 07/17/2022 08/16/2023 1 1 * Diagnostic Procedure Only (Routine) - Closed Specialty Diagnoses / Procedures Referred By Contac t Referred To Contact XR IMAGING Diagnoses Wrist pain, right Hand pain, right Procedures XR WRIST GENERAL 3V PA/LAT/OBL RIGHT RADEX WRIST COMPLETE MINIMUM 3 VIEWS Elan Garcia MD [address] [place] [address] Xr Imaging Referral ID Status Reason Start Date Expiration Date V isits Requested Visits Authorized [id number] Closed Auto-Generate d Referral 07/17/2022 08/16/2023 1 1 [facility] Summary Purpose Family History No Family History Records FoundNo Family History Records Found Advance Directives No Advanced Directives Records FoundDocuments on File 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 Advance Directive(s) 06/23/2019 8:51 AM Advance Directive(s) 10/28/2018 9:24 AM Advance Directive(s) 07/21/2017 9:15 AM Documents on File 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 Advance Directive(s) 06/23/2019 8:51 AM Advance Directive(s) 10/28/2018 9:24 AM Advance Directive(s) 07/21/2017 9:15 AM Reason for Referral Specialty Diagnoses / Procedures Referred By Contac t Referred To Contact Pain Management Diagnoses Chronic bilateral low back pain without sciatica Chronic pain of both hips Procedures CONSULT TO PAIN MGT OFFICE/OUTPATIENT [facility] 60-74 MINUTES Elan Garcia MD [address] [place] [address] Referral ID Status Reason Start Date Expiration Date Visits Requested Visits Authorized [id number] Authorized PCP Requested Referral 03/20/2022 03/20/2023 1 1 Specialty Diagnoses / Procedures Referred By Contac t Referred To Contact XR IMAGING Diagnoses Chronic pain of both hips Procedures XR HIP BILATERAL 5V PEL/AP/LAT EACH HIP RADEX HIPS BILATERAL WITH PELVIS MINIMUM 5 VIEWS Elan Garcia MD [address] [place] [address] Xr Imaging Referral ID Status Reason Start Date Expiration Date V isits Requested Visits Authorized [id number] Closed Auto-Generate d Referral 03/20/2022 2023 1 1 Specialty Diagnoses / Procedures Referred By Contac t Referred To Contact XR IMAGING Diagnoses Chronic bilateral low back pain without sciatica Procedures XR LUMBAR GENERAL 3V AP/LAT/L5-S1 RADEX SPINE LUMBOSACRAL 2/3 VIEWS Elan Garcia MD [address] [place] [address] Xr Imaging Referral ID Status Reason Start Date Expiration Date V isits Requested Visits Authorized [id number] Closed Auto-Generate d Referral 03/20/2022 2023 1 1 Specialty Diagnoses / Procedures Referred By Contac t Referred To Contact CT IMAGING Diagnoses Leukocytosis, unspecified type Procedures CT ABD/PEL WO IVCON CT ABD & PELVIS W/O CONTRAST Elan Garcia MD [id number] Imaging Referral ID Status Reason Start Date Expiration Date Visits Requested Visits Authorized [id number] Pending Review Auto-Genera marily Referral Patient Cleared - Admin/Chair man/Directo r advise to proceed 05/11/2022 06/10/2023 2 2 Referral ID Status Reason Start Date Expiration Date Visits Requested Visits Authorized [id number] Authorized Auto-Generat ed Referral Patient Cleared - Admin/Chairm an/Director advise to proceed 05/12/2022 06/11/2022 2 2 Specialty Diagnoses / Procedures Referred By Contac t Referred To Contact Gynecology Diagnoses Vaginal disorder Procedures CONSULT TO GYNECOLOGY OFFICE/OUTPATIENT [facility] 60-74 MINUTES Nancy Loco APRN.CNP [address] [place] [address] Referral ID Status Reason Start Date Expiration Date Visits Requested Visits Authorized [id number] Authorized PCP Requested Referral Auto-Generate d Referral 05/15/2022 05/15/2023 1 1 Specialty Diagnoses / Procedures Referred By Contac t Referred To Contact Hematology Diagnoses Neutrophilia Leukocytosis, unspecified type Procedures CONSULT TO HEMATOLOGY OFFICE/OUTPATIENT [facility] MDM 60-74 MINUTES Elan Garcia MD [address] [place] [address] Referral ID Status Reason Start Date Expiration Date Visits Requested Visits Authorized [id number] Authorized PCP Requested Referral 06/03/2022 06/03/2023 1 1 Specialty Diagnoses / Procedures Referred By Contac t Referred To Contact MR IMAGING Diagnoses Right wrist pain Procedures MRI WRIST WO IVCON RT MRI ANY JT UPPER EXTREMITY W/O CONTRAST MATRL Elan Garcia MD [address] [place] [address] Mr Imaging Referral ID Status Reason Start Date Expiration Date Visits Requested Visits Authorized [id number] Pending Review Auto-Generat ed Referral 07/20/2022 08/19/2023 1 1 Specialty Diagnoses / Procedures Referred By Contac t Referred To Contact [facility] Diagnoses Chronic bilateral low back pain with right-sided sciatica Procedures CONSULT TO PHYSICAL THERAPY PHYSICAL THERAPY EVALUATION HIGH COMPLEX 45 MINS Elan Garcia MD [address] [place] [address] [facility] [place] [address] [place] [address] Referral ID Status Reason Start Date Expiration Date Visits Requested Visits Authorized [id number] Pending Review Auto-Generat ed Referral 01/05/2024 01/04/2025 1 1 Specialty Diagnoses / Procedures Referred By Contac t Referred To Contact XR IMAGING Diagnoses Chronic bilateral low back pain with right-sided sciatica Procedures XR LUMBAR GENERAL 3V AP/LAT/L5-S1 RADEX SPINE LUMBOSACRAL 2/3 VIEWS Elan Garcia MD [address] [place] [address] [place] [id number] Referral ID Status Reason Start Date Expiration Date V isits Requested Visits Authorized [id number] Closed Auto-Generate d Referral 01/05/2024 02/03/2025 1 1 Additional Source Comments INFORMATION SOURCE (unrecogn ized section and content) DATE CREATED AUTHOR AUTHOR'S ORGANIZ ATION 01/10/2024 [facility] Source Comments (unrecognize d section and content) In the event this informatio n is protected by the Federal Confidentiality of Alcohol and Drug Abuse Patient Records regulations: The Federal rules restrict any use of the information to criminally investigate or prosecute any alcohol or drug abuse patient.[facility] the event this information is protected by the Federal Confidentiality of Alcohol and Drug Abuse Patient Records regulations: The Federal rules restrict any use of the information to criminally investigate or prosecute any alcohol or drug abuse patient.[facility] the event this information is protected by the Federal Confidentiality of Alcohol and Drug Abuse Patient Records regulations: The Federal rules restrict any use of the information to criminally investigate or prosecute any alcohol or drug abuse patient.[facility] the event this information is protected by the Federal Confidentiality of Alcohol and Drug Abuse Patient Records regulations: The Federal rules restrict any use of the information to criminally investigate or prosecute any alcohol or drug abuse patient.[facility] the event this information is protected by the Federal Confidentiality of Alcohol and Drug Abuse Patient Records regulations: The Federal rules restrict any use of the information to criminally investigate or prosecute any alcohol or drug abuse patient.[facility] the event this information is protected by the Federal Confidentiality of Alcohol and Drug Abuse Patient Records regulations: The Federal rules restrict any use of the information to criminally investigate or prosecute any alcohol or drug abuse patient.[facility] the event this information is protected by the Federal Confidentiality of Alcohol and Drug Abuse Patient Records regulations: The Federal rules restrict any use of the information to criminally investigate or prosecute any alcohol or drug abuse patient.[facility] the event this information is protected by the Federal Confidentiality of Alcohol and Drug Abuse Patient Records regulations: The Federal rules restrict any use of the information to criminally investigate or prosecute any alcohol or drug abuse patient.[facility] the event this information is protected by the Federal Confidentiality of Alcohol and Drug Abuse Patient Records regulations: The Federal rules restrict any use of the information to criminally investigate or prosecute any alcohol or drug abuse patient.[facility] event this information is protected by the Federal Confidentiality of Alcohol and Drug Abuse Patient Records regulations: The Federal rules restrict any use of the information to criminally investigate or prosecute any alcohol or drug abuse patient.[facility] CampusIn the event this information is protected by the Federal Confidentiality of Alcohol and Drug Abuse Patient Records regulations: The Federal rules restrict any use of the information to criminally investigate or prosecute any alcohol or drug abuse patient.[facility] CampusIn the event this information is protected by the Federal Confidentiality of Alcohol and Drug Abuse Patient Records regulations: The Federal rules restrict any use of the information to criminally investigate or prosecute any alcohol or drug abuse patient.[facility] CampusIn the event this information is protected by the Federal Confidentiality of Alcohol and Drug Abuse Patient Records regulations: The Federal rules restrict any use of the information to criminally investigate or prosecute any alcohol or drug abuse patient.[facility] CampusIn the event this information is protected by the Federal Confidentiality of Alcohol and Drug Abuse Patient Records regulations: The Federal rules restrict any use of the information to criminally investigate or prosecute any alcohol or drug abuse patient.[facility] CampusIn the event this information is protected by the Federal Confidentiality of Alcohol and Drug Abuse Patient Records regulations: The Federal rules restrict any use of the information to criminally investigate or prosecute any alcohol or drug abuse patient.[facility] CampusIn the event this information is protected by the Federal Confidentiality of Alcohol and Drug Abuse Patient Records regulations: The Federal rules restrict any use of the information to criminally investigate or prosecute any alcohol or drug abuse patient.[facility] CampusIn the event this information is protected by the Federal Confidentiality of Alcohol and Drug Abuse Patient Records regulations: The Federal rules restrict any use of the information to criminally investigate or prosecute any alcohol or drug abuse patient.[facility] CampusIn the event this information is protected by the Federal Confidentiality of Alcohol and Drug Abuse Patient Records regulations: The Federal rules restrict any use of the information to criminally investigate or prosecute any alcohol or drug abuse patient.[facility] CampusIn the event this information is protected by the Federal Confidentiality of Alcohol and Drug Abuse Patient Records regulations: The Federal rules restrict any use of the information to criminally investigate or prosecute any alcohol or drug abuse patient.[facility] CampusIn the event this information is protected by the Federal Confidentiality of Alcohol and Drug Abuse Patient Records regulations: The Federal rules restrict any use of the information to criminally investigate or prosecute any alcohol or drug abuse patient.[facility] CampusIn the event this information is protected by the Federal Confidentiality of Alcohol and Drug Abuse Patient Records regulations: The Federal rules restrict any use of the information to criminally investigate or prosecute any alcohol or drug abuse patient.[facility] CampusIn the event this information is protected by the Federal Confidentiality of Alcohol and Drug Abuse Patient Records regulations: The Federal rules restrict any use of the information to criminally investigate or prosecute any alcohol or drug abuse patient.[facility] CampusIn the event this information is protected by the Federal Confidentiality of Alcohol and Drug Abuse Patient Records regulations: The Federal rules restrict any use of the information to criminally investigate or prosecute any alcohol or drug abuse patient.[facility] CampusIn the event this information is protected by the Federal Confidentiality of Alcohol and Drug Abuse Patient Records regulations: The Federal rules restrict any use of the information to criminally investigate or prosecute any alcohol or drug abuse patient.[facility] CampusIn the event this information is protected by the Federal Confidentiality of Alcohol and Drug Abuse Patient Records regulations: The Federal rules restrict any use of the information to criminally investigate or prosecute any alcohol or drug abuse patient.[facility] CampusIn the event this information is protected by the Federal Confidentiality of Alcohol and Drug Abuse Patient Records regulations: The Federal rules restrict any use of the information to criminally investigate or prosecute any alcohol or drug abuse patient.[facility] CampusIn the event this information is protected by the Federal Confidentiality of Alcohol and Drug Abuse Patient Records regulations: The Federal rules restrict any use of the information to criminally investigate or prosecute any alcohol or drug abuse patient.[facility] CampusIn the event this information is protected by the Federal Confidentiality of Alcohol and Drug Abuse Patient Records regulations: The Federal rules restrict any use of the information to criminally investigate or prosecute any alcohol or drug abuse patient.[facility] CampusIn the event this information is protected by the Federal Confidentiality of Alcohol and Drug Abuse Patient Records regulations: The Federal rules restrict any use of the information to criminally investigate or prosecute any alcohol or drug abuse patient.[facility] CampusIn the event this information is protected by the Federal Confidentiality of Alcohol and Drug Abuse Patient Records regulations: The Federal rules restrict any use of the information to criminally investigate or prosecute any alcohol or drug abuse patient.[facility] CampusIn the event this information is protected by the Federal Confidentiality of Alcohol and Drug Abuse Patient Records regulations: The Federal rules restrict any use of the information to criminally investigate or prosecute any alcohol or drug abuse patient.[facility] Reason for Visit (unrecogniz ed section and content) Reason Comments Vaginal Problem irritation x3 months Reason Comments Results Reason Comments Lab Orders Reason Comments labs coming from Dr Sung office Reason Comments Results Endo lab questions a nd concerns Reason Comments Radiology CT Specialty Diagnoses / Procedures Referred By Rolandac t Referred To Contact CT IMAGING Diagnoses Leukocytosis, unspecified type Procedures CT ABD/PEL WO IVCON CT ABD & PELVIS W/O CONTRAST Elan Garcia MD [address] [place] [address] Ct Imaging Referral ID Status Reason Start Date Expiration Date Visits Requested Visits Authorized [id number] Authorized Auto-Generat ed Referral Patient Cleared - Admin/Chairm an/Director advise to proceed 05/12/2022 06/11/2022 2 2 Reason Comments Orders Reason Comments F/U 6 months Reason Comments New Patient Evaluation Specialty Diagnoses / Procedures Referred By Contac t Referred To Contact Hematology Diagnoses Neutrophilia Leukocytosis, unspecified type Procedures CONSULT TO HEMATOLOGY OFFICE/OUTPATIENT NEW HIGH MDM 60-74 MINUTES Elan Garcia MD [address] [place] [address] Referral ID Status Reason Start Date Expiration Date V isits Requested Visits Authorized [id number] Closed PCP Requested Referral 06/03/2022 06/03/2023 1 [...] last week Reason Comments medication replacement request Reason Comments Leg Pain Reason Comments [facility] Teams (unrecognized sec tion and content) [employer] Relationship Specialty Start Date End Date Elan Garcia MD [address] [place], [place] [id number] PCP - General Family Practice 10/23/20 [employer] Relationship Specialty Start Date End Date Elan Garcia MD [address] [place] [address] PCP - General Family Practice 10/23/20 [employer] Relationship Specialty Start Date End Date Elan Garcia MD [address] [place] [address] PCP - General Family Practice 10/23/20 [employer] Relationship Specialty Start Date End Date Elan Garcia MD [address] [facility] [place] [address] PCP - General Family Practice 10/23/20 [employer] Relationship Specialty Start Date End Date Elan Garcia MD [address] [facility] [place] [address] PCP - General Family Practice 10/23/20 [employer] Relationship Specialty Start Date End Date Elan Garcia MD [address] [facility] [place] [address] PCP - General Family Practice 10/23/20 [employer] Relationship Specialty Start Date End Date Elan Garcia MD [address] [facility] [place] [address] PCP - General Family Practice 10/23/20 [employer] Relationship Specialty Start Date End Date Elan Garcia MD [address] [facility] [place] [address] PCP - General Family Practice 10/23/20 [employer] Relationship Specialty Start Date End Date Elan Garcia MD [address] [facility] [place] [address] PCP - General Family Practice 10/23/20 [employer] Relationship Specialty Start Date End Date Elan Garcia MD [address] [facility] [place] [address] PCP - General Family Practice 10/23/20 [employer] Relationship Specialty Start Date End Date Elan Garcia MD [address] [facility] [place] [address] PCP - General Family Practice 10/23/20 [employer] Relationship Specialty Start Date End Date Elan Garcia MD [address] [facility] [place] [address] PCP - General Family Practice 10/23/20 [employer] Relationship Specialty Start Date End Date Elan Garcia MD [address] [facility] [place] [address] PCP - General Family Medicine 10/23/20 [employer] Relationship Specialty Start Date End Date Elan Garcia MD [address] [facility] [place] [address] PCP - General Family Medicine 10/23/20 [employer] Relationship Specialty Start Date End Date Elan Garcia MD [address] [place] [address] PCP - General Family Medicine 10/23/20 [employer] Relationship Specialty Start Date End Date Elan Garcia MD [address] [place] [address] PCP - General Family Medicine 10/23/20 [employer] Relationship Specialty Start Date End Date Elan Garcia MD [address] [facility] [place] [address] PCP - General Family Medicine 10/23/20 [employer] Relationship Specialty Start Date End Date Elan Garcia MD [address] [facility] [place] [address] PCP - General Family Medicine 10/23/20 [employer] Relationship Specialty Start Date End Date Elan Garcia MD [address] [facility] [place] [address] PCP - General Family Medicine 10/23/20 [employer] Relationship Specialty Start Date End Date Elan Garcia MD [address] [facility] [place] [place] [address] PCP - General Family Medicine 10/23/20 [employer] Relationship Specialty Start Date End Date Elan Garcia MD [address] [place] [address] PCP - General Family Medicine 10/23/20 [employer] Relationship Specialty Start Date End Date Elan Garcia MD [address] [place] [address] PCP - General Family Medicine 10/23/20 FOR [...] BE BASED ON THE PRIMARY CLINICAL RECORDS. [employer] [facility]. provides no warranty or guarantee of the accuracy or completeness of information in this document.
[2024-01-22] MEDS: 0.9% Normal Saline (500mL Bag) 500 ML 999 ML IV (23:45)
[2024-01-22 23:49] LABS: Absolute Lymphocyte Count 3.45 X10^3/uL (0.83-4.51); Absolute Neutrophil Count 7.9 X10^3/uL (2.0-7.7); Basophil# 0.09 X10^3/uL; Basophil% 0.7 % (0-1); Eosinophil# 0.23 X10^3/uL; Eosinophils% 1.9 % (0-5); Hematocrit 44.8 % (37-47); Hemoglobin 14.9 g/dL (12.0-15.0); Lymphocyte # 3.45 X10^3/ul (0.83-4.51); Lymphocyte % 27.8 % (19-41); Mean Corp Hgb Conc 33.3 g/dL (32-36); Mean Corpuscular Hgb 31.2 pg (27.0-32.0); Mean Corpuscular Volume 93.7 fL (81-99); Monocyte# 0.72 X10^3/uL; Monocyte% 5.8 % (0-10); NRBC Flagged by Analyzer 0 % (0-5); Neutrophil # 7.86 X10^3/uL (2.7-7.7); Neutrophil % 63.4 % (47-70); Platelet Count 276 K/mm3 (150-450); RBC Distribution Width CV 14.1 % (11.6-14.6); RBC Distribution Width SD 49.1 fl (35.1-43.9); Red Blood Count 4.78 M/mm3 (4.2-5.4); White Blood Count 12.4 K/mm3 (4.4-11.0)
[2024-01-22 23:59] LABS: International Normalized Ratio 0.9; Prothrombin Time (Protime)PT. 12.5 SECONDS (11.7-14.9)
[2024-01-23] LABS: Partial Thromboplast Time 28.6 Seconds (24.1-36.2)
[2024-01-23 00:02] LABS: Anion Gap 2 (5-15); BUN 19 mg/dL (7-18); BUN/Creat Ratio 16.1 RATIO (10-20); Calcium,Total 9.4 mg/dL (8.5-10.1); Chloride 112 mmol/L (98-107); Creatinine, Serum 1.18 mg/dL (0.55-1.02); EST Glomerular Filtration Rate 47 mL/min (>60); Est Glom Filt Rate - Afr Amer 57 mL/min (>60); Estimated Creatinine Clearance 33.05 ml/min; Glucose 99 mg/dL (74-106); Magnesium 2.5 mg/dL (1.6-2.6); Potassium 4.6 mmol/L (3.5-5.1); Sodium Level 141 mmol/L (136-145)
[2024-01-23 00:10] LABS: Lactic Acid 1.1 mmol/L (0.4-1.9)
--- NOTE | 2024-01-23 00:12 | CT_ITS ---
EXAM: CT ANGIOGRAPHY ABDOMEN AND PELVIS WITHOUT AND WITH INTRAVENOUS CONTRAST CLINICAL INDICATION: GI bleed TECHNIQUE: Only arterial phase images were provided, 2.5 mm axial images with coronal and sagittal reconstructions. MIP reconstructed images were created and reviewed. This CT exam was performed using one or more of the following dose reduction techniques: automated exposure control, adjustment of the mA and/or kV according to patient size, and/or use of iterative reconstruction technique. CONTRAST: IV 100mL Isovue-370 RADIATION DOSE: 6 = 18.19 mGy, DLP = 445.76 mGy-cm. COMPARISON: No relevant prior studies available. FINDINGS: VASCULATURE: AORTA: No acute findings. Normal caliber abdominal aorta. No dissection. Mild atherosclerotic changes with slightly ulcerated plaque in the infrarenal aorta margin and proximal right common iliac artery margin, best seen on the coronal images. Maximum aorta diameter 2.1 cm. CELIAC TRUNK AND MESENTERIC ARTERIES: Minimal narrowing at the origins of the celiac axis, SMA and right renal artery at least mild to moderate narrowing at the origin of the left renal artery. RENAL ARTERIES: See above. No high-grade arterial stenosis. ILIAC ARTERIES: No acute findings. No occlusion or significant stenosis. No dissection. LOWER THORAX: Unremarkable. Lung bases are clear. No cardiomegaly. No significant pericardial effusion. ABDOMEN: LIVER: Unremarkable. Homogeneous. No focal mass. GALLBLADDER AND BILE DUCTS: Cholecystectomy. No intra- or extrahepatic biliary ductal dilation. PANCREAS: Unremarkable. No focal cystic or solid mass. SPLEEN: Unremarkable. Normal size without focal cystic or solid mass. ADRENALS: Unremarkable. No nodules. KIDNEYS AND URETERS: 1.2 cm right renal cyst. Normal renal size and position. No hydronephrosis. STOMACH AND BOWEL: Stomach is collapsed. Scattered gas and fluid in the small bowel. Diverticulosis of the distal transverse colon-splenic flexure, proximal and distal descending colon, and sigmoid, mild. No evidence of acute diverticulitis. Moderate gas in the rectum. Mildly thick-walled appearance of distal descending and sigmoid colon suspicious for of mild sigmoid colitis. Hyperdense appearance of multiple diverticuli, especially the 2 larger diverticuli in the distal sigmoid, but no convincing active bleeding. PELVIS: APPENDIX: Nonvisualized appendix, suspected appendectomy. BLADDER: Unremarkable. REPRODUCTIVE: Small uterus is present. ABDOMEN and PELVIS: INTRAPERITONEAL SPACE: Unremarkable. No ascites or other fluid collection. No free air. BONES/JOINTS: Unremarkable with the exception of old healed fracture of right inferior pubic ramus with callus. Minimal degenerative spine changes. No suspicious lytic or blastic abnormality. SOFT TISSUES: Unremarkable. No discrete abdominal or pelvic wall hernia. LYMPH NODES: Unremarkable. No enlarged lymph nodes. CT/CTA Abd/Pelvis W/WO Contrast IMPRESSION: 1. Limited for evaluation of slow bleeding, delayed images were not provided. 2. No evidence of active arterial bleeding. 3. Diverticulosis. Suspicion of mild colitis involving the distal descending colon and the sigmoid. Moderate stool in the proximal half of the colon. 4. Cholecystectomy. Presumed appendectomy. Mild atherosclerotic changes. Electronically Signed: Bre Childress MD at 1:58 EST ,
[2024-01-23 01:00] VITALS: BP 172/92; PULSE 83; RESP 19; TEMP 36.9; O2SAT 99
--- NOTE | 2024-01-23 02:13 | EX.ED.DYSGE1 ---
HPI History of Present Illness Chief Complaint: GI Bleed Informant: patient and spouse/S.O. Narrative Narrative: Patient is a 78-year-old female with past medical history of GERD fibromyalgia and diverticulosis. She states that this evening she developed crampy lower abdominal pain and then went to the bathroom and had bouts of mucousy bloody stool. She denies any history of bleeding disorder or blood thinner use. 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 IBS (irritable bowel syndrome) Lactose intolerance Malaise and fatigue Osteoarthritis Osteoporosis Panhypopituitarism Pituitary abnormality Seasonal allergies Secondary adrenal insufficiency Tumors Home Medications calcium carbonate 600 mg calcium (1,500 mg) tablet 1,200 mg PO DAILY supplement 08/19/18 [History Last Taken 08/18/18] cholecalciferol (vitamin D3) 50 mcg (2,000 unit) capsule 1,000 unit PO DAILY vitamin 08/19/18 [History Last Taken 08/18/18] enalapril maleate 2.5 mg tablet 2.5 mg PO QHS blood pressure 08/19/18 [History Last Taken 01/22/24] omeprazole 20 mg capsule,delayed release 20 mg PO DAILY reflux 08/19/18 [History Last Taken 07/17/19 05:40] conjugated estrogens 0.625 mg/gram vaginal cream (Premarin) 0.3125 mg vaginal 2XW hormones 06/26/19 [History Last Taken Unknown] denosumab 60 mg/mL subcutaneous syringe (Prolia) 60 mg subcut [id number] #1 mL 05/20/23 [Rx Last Taken Unknown] levothyroxine 25 mcg tablet 25 mcg PO .1 qd, 2 Wed and Wed thyroid #108 tabs 05/21/23 [Rx Last Taken Unknown] hydrocortisone 10 mg tablet 10 mg PO .COMPLEX #180 tabs 12/09/23 [Rx Last Taken Unknown] ciprofloxacin HCl 500 mg tablet (Cipro) 500 mg PO BID 7 days #14 tabs 01/23/24 [Rx Last Taken Unknown] metronidazole 500 mg tablet 500 mg PO TID 7 days #21 tabs 01/23/24 [Rx Last Taken Unknown] Allergy/AdvReac Type Severity Reaction Status Date / Time nitrofurantoin Allergy Rash Verified 01/22/24 22:50 Penicillins [PCN] Allergy Hives Verified 01/22/24 22:50 rofecoxib [From Vioxx] AdvReac Nausea/Vom/ Verified 01/22/24 22:50 Diarrhea Family History Father Cancer lung Colon cancer Sister Breast cancer Mother Asthma Hypertension CVA (cerebral vascular accident) Unknown Anxiety Asthma Arthritis Breast cancer Colon cancer Diabetes Hypertension Hyperlipidemia Severe allergy Surgical History H/O hand surgery History of benign neoplasm of pituitary gland History of cataract extraction History of colonoscopy (~2013) History of colonoscopy (~06/2019) History of esophagogastroduodenoscopy (EGD) (~2013) History of esophagogastroduodenoscopy (EGD) (~06/2019) History of laparoscopic cholecystectomy History of tubal ligation Status post bunionectomy Social History Smoking Status: Never smoker alcohol intake: never substance use type: does not use what type of physical activity do you participate in: other frequency: 3-4 times per week ROS ROS ED Constitutional Constitutional ED: Denies chills or fever(s) ENT ENT ED: Denies sore throat Cardiovascular Cardiovascular: Denies chest pain Respiratory/Chest Respiratory/Chest: Denies cough or dyspnea Gastrointestinal Gastrointestinal: Reports abdominal pain and other Details: Positive hematochezia ; Denies diarrhea, nausea or vomiting Genitourinary Genitourinary ED: Denies dysuria Musculoskeletal Musculoskeletal: Denies myalgias Integumentary Denies rash Neurologic Neurologic: Denies headache(s) or weakness Hematologic/Lymphatic Hematologic/Lymphatic: Denies easy bleeding or easy bruising EXAM Physical Exam Const Vital Signs: 01/22/24 22:47 01/23/24 01:00 01/23/24 02:22 Temperature 97.1 F L 98.5 F 98.1 F Temperature Source Temporal Oral Pulse Rate 85 83 81 Respiratory Rate 15 19 H 18 Blood Pressure 155/94 H 172/92 H 166/79 H Blood Pressure Mean 114 118 108 Pulse Ox 100 99 99 Oxygen Delivery Method Room Air Room Air Positive well nourished and well developed General Appearance ED: well developed; Negative for pallor HEENT HEENT Narrative: No sign of infection noted in the posterior pharynx No airway edema or compromise Eyes PERRL and EOMs intact bilaterally General Eye ED: Negative for pale conjunctiva or scleral icterus Neck supple Resp normal respiratory effort and clear to auscultation bilaterally Cardio regular rate and regular rhythm Rate: other Other Details: Radial and carotid pulses equal and symmetric GI non-distended GI Narrative: Abdomen is soft and nondistended with normal active bowel sounds. Patient has mild diffuse pain to palpation in the lower abdomen but greatest in the left lower quadrant No voluntary guarding or rigidity Auscultation: normoactive bowel sounds Palpation: soft Narrative: Rectal exam shows nonbleeding nonthrombosed external hemorrhoids without anal fissure Rectal tone is normal There is scant stool within the rectal vault which is brown in color but Hemoccult positive Extremity normal to inspection Neuro oriented x3, CN's II-XII intact bilaterally and no sensory deficits noted Sensorium / Orientation: alert Motor Exam: strength 5/5 throughout Psych mental status grossly normal Skin no rashes or lesions noted General Skin Exam: Negative for jaundice or pallor MDM MDM MDM Narrative Medical decision making narrative: Patient presented to the ER mildly hypertensive otherwise with stable vitals. With abdominal pain and bloody stool there is concern for ischemic colitis versus diverticulitis versus diverticular/arterial bleed patient also has risk factor for acute blood loss anemia and secondary to his basic labs and a CTA of the abdomen and pelvis was obtained. Patient's white count is slightly elevated 12.4 concerning for infectious process but H&H is stable and she has no signs of acute kidney injury. BUN is not clinically elevated going against an upper GI bleed. CTA revealed inflammation of the sigmoid colon concerning for colitis with no obvious sign of active arterial bleeding. This correlates with the patient's exam that there is only intermittent blood in it occurs with bowel movements. At this time she is hemodynamically stable not requiring a blood transfusion or not showing changes concerning for sepsis. Therefore she be placed on oral antibiotics and is otherwise safe for discharge History & Record Review Discussion w/independent historian: Patient and Significant other Lab Data Attestation: I reviewed the patient's lab results. Labs: Laboratory Results - last 24 hr 01/22/24 23:41 WBC 12.4 H RBC 4.78 Hgb 14.9 Hct 44.8 MCV 93.7 MCH 31.2 MCHC 33.3 RDW Std Deviation 49.1 H RDW Coeff of Marina 14.1 Plt Count 276 MPV 10.0 Immature Gran % (Auto) 0.400 Neut % (Auto) 63.4 Lymph % (Auto) 27.8 Shannon % (Auto) 5.8 Eos % (Auto) 1.9 Baso % (Auto) 0.7 Absolute Neuts (auto) 7.9 H Absolute Lymphs (auto) 3.45 Nucleated RBC % 0 PT 12.5 INR 0.9 APTT 28.6 Sodium 141 Potassium 4.6 Chloride 112 H Carbon Dioxide 27.0 Anion Gap 2 L BUN 19 H Creatinine 1.18 H Estim Creat Clear Calc 33.05 Est GFR (MDRD) Af Amer 57 L Est GFR (MDRD) Non-Af 47 L BUN/Creatinine Ratio 16.1 Glucose 99 Lactic Acid 1.1 Calcium 9.4 Magnesium 2.5 Radiography Diagnostic Testing: Clinical Impression(s) from Imaging Studies Abdomen/Pelvis CTA 01/23/24 00:12 IMPRESSION: 1. Limited for evaluation of slow bleeding, delayed images were not provided. 2. No evidence of active arterial bleeding. 3. Diverticulosis. Suspicion of mild colitis involving the distal descending colon and the sigmoid. Moderate stool in the proximal half of the colon. 4. Cholecystectomy. Presumed appendectomy. Mild atherosclerotic changes. Electronically Signed: Bre Childress MD at 1:58 EST Reading Location ID and State: [facility] / [place] Tel , Service support , Discharge Plan Triage Chief Complaint: GI Bleed ED Provider: Kyle Torres Dx/Rx/DC Orders Clinical Impression: GI bleed, Colitis, Fibromyalgia, History of gastroesophageal reflux (GERD) Instructions: ED Understanding Colitis, ED Lower GI Bleeding (Stable) Prescriptions: New ciprofloxacin HCl [Cipro] 500 mg tablet 500 mg PO BID 7 Days Qty: 14 0RF metronidazole 500 mg tablet 500 mg PO TID 7 Days Qty: 21 0RF No Action Premarin 0.625 mg/gram cream 0.3125 mg VAGINAL 2XW Prolia 60 mg/mL syringe 60 mg subcut [id number] Qty: 1 1RF enalapril maleate 2.5 MG tablet 2.5 mg PO QHS omeprazole 20 capsule,delayed release(DR/EC) 20 mg PO DAILY calcium carbonate 600 MG tablet 1,200 mg PO DAILY cholecalciferol (vitamin D3) 2,000 UNIT capsule 1,000 unit PO DAILY levothyroxine 25 mcg tablet 25 mcg PO .1 qd, 2 Wed and Wed Qty: 108 3RF hydrocortisone 10 mg tablet 10 mg PO .COMPLEX Qty: 180 1RF Rx Instructions: 10 mg PO 10 mg am and 5 mg afternoon. Double dose if fever.; Primary Care Provider: Pastor Garcia Referrals: Pastor Garcia MD [Primary Care Provider] - Activity Restrictions/Additional Instructions: Your workup did not show any obvious signs of active arterial internal bleeding. It did show thickening and inflammation of your sigmoid colon consistent with colitis. I feel your pain and bleeding is secondary to this inflammation of the intestine and sloughing of the lining. Take antibiotics as directed which should resolve the symptoms in the next few days. If you develop a fever worsening pain or have worsening bleeding or any further concerns please return to the hospital for repeat evaluation Disposition Disposition: Home, Self Care Discharge Date/Time: 01/23/24 02:29
[2024-01-23 02:22] VITALS: BP 166/79; PULSE 81; RESP 18; TEMP 36.7; O2SAT 99
[2024-01-23] MEDS: Ciprofloxacin 500 MG Tablet PO (02:24)
[2024-01-23] MEDS: metroNIDAZOLE 500 MG Tablet PO (02:24)
== END 2024-01-23 02:29 | disposition home or self-care (01) ==
PROVIDERS: Emergency Provider Emergency Medicine; PCP Family Medicine; Visit Provider Emergency Medicine
DX: K92.2 Gastrointestinal hemorrhage, unspecified (principal); M79.7 Fibromyalgia; I10 Essential (primary) hypertension; K21.9 Gastro-esophageal reflux disease without esophagitis; Z79.899 Other long term (current) drug therapy; Z98.49 Cataract extraction status, unspecified eye; Z90.49 Acquired absence of other specified parts of digestive tract; Z98.51 Tubal ligation status; K52.9 Noninfective gastroenteritis and colitis, unspecified
CPT/HCPCS: 74174; 80048; 82274; 83605; 83735; 85025; 85610; 85730; 96360; 99284; J7040; Q9967; A4216

== ENCOUNTER 2024-05-11 04:16 | Emergency (ER) | payer MEDICARE, SELFPAY ==
[2024-05-11 04:16] VITALS: BP 178/72; PULSE 68; RESP 14; TEMP 36.3; O2SAT 99; BMI 27.1
--- NOTE | 2024-05-11 04:53 | CT_ITS ---
INDICATION: fall EXAMINATION: CT BRAIN - CT Head or Brain W/O Contrast Injection TECHNIQUE: Multiple axial images were obtained of the head without intravenous contrast. The protocol utilizes one or more of the following dose reduction techniques: automated exposure control, adjustment of mA and/or kV according to patient size,and/or use of iterative reconstruction technique. IV Contrast dosage and agent: None. RADIATION DOSAGE (If Supplied By Facility): CTDIvol = ( 44.99 ) mGy, DLP = ( 796.11 ) mGycm COMPARISON: None. FINDINGS: BRAIN: No acute bleed. No edema. Mild decreased attenuation in the periventricular white matter bilaterally. [place]ino-white matter differentiation is maintained. Arterial calcifications. Partially empty sella. VENTRICLES AND SULCI: The ventricles are not dilated. The sulci are prominent. EXTRA-AXIAL: No hemorrhage, fluid collection, or mass. CALVARIUM / SKULL BASE: Unremarkable. FACE/SINUSES: Unremarkable. SOFT TISSUES: Unremarkable. CT/Brain/Head without Contrast IMPRESSION: No acute abnormality. Chronic microvascular ischemic disease. Partially empty sella. Electronically Signed: Sho Gordon MD at 7:45 EDT ,
--- NOTE | 2024-05-11 04:53 | RAD_ITS ---
INDICATION: pain EXAMINATION/TECHNIQUE: X-RAY - XR Hips Bilateral with Pelvis when performed; 3-4 Views COMPARISON: None. FINDINGS: Fracture of the right inferior pubic ramus of uncertain age. No other definite fracture demonstrated. The femoral heads are normal contour. No dislocation at the hips. RAD/Hip uni 4+ views with Pelvis IMPRESSION: Fracture of the right inferior pubic ramus. Electronically Signed: Sho Gordon MD at 7:33 EDT ,
--- NOTE | 2024-05-11 04:53 | CT_ITS ---
INDICATION: fall EXAMINATION: CT CERVICAL SPINE - CT Spine Cervical W/O Contrast Injection TECHNIQUE: Helically acquired images were obtained of the cervical spine. 2D reformatted images were reviewed. The protocol utilizes one or more of the following dose reduction techniques: automated exposure control, adjustment of mA and/or kV according to patient size,and/or use of iterative reconstruction technique. IV Contrast dosage and agent: None. RADIATION DOSAGE (If Supplied By Facility): CTDIvol = ( 13.55 ) mGy, DLP = ( 276.70 ) mGycm COMPARISON: None. FINDINGS: ALIGNMENT: Minimal anterior subluxation of C7 on T1. MINERALIZATION: Normal. VERTEBRAL BODIES: No fracture or acute abnormality. DISC SPACES: Disc space narrowing with osteophytes most pronounced C5-C7. POSTERIOR ELEMENTS: Facet arthropathy at multiple levels. SPINAL CANAL: Maintained. PARASPINAL SOFT TISSUES: Unremarkable. OTHER: None. CT/Spine Cervical without Contras IMPRESSION: No evidence of fracture or traumatic subluxation. Minimal anterolisthesis at C7-T1 likely secondary to degenerative changes. Electronically Signed: Sho Gordon MD at 8:01 EDT ,
--- NOTE | 2024-05-11 04:53 | RAD_ITS ---
INDICATION: pain EXAMINATION/TECHNIQUE: X-RAY - XR Chest 2 Views COMPARISON: 03/07/2019 FINDINGS: LINES/DEVICES: None. LUNGS: No consolidation. No pneumothorax. MEDIASTINUM: The aorta is atherosclerotic. CARDIAC SILHOUETTE: Not enlarged. BONES AND SOFT TISSUES: No acute abnormalities. RAD/Chest PA and Lateral IMPRESSION: No evidence of active intrathoracic disease. Electronically Signed: Sho Gordon MD at 6:47 EDT ,
--- NOTE | 2024-05-11 04:53 | RAD_ITS ---
INDICATION: pain EXAMINATION/TECHNIQUE: X-RAY - XR Spine Thoracic 3 Views COMPARISON: None. FINDINGS: Mild anterior wedge compression abnormality of several adjacent upper/mid thoracic vertebral bodies, uncertain age. No definite acute fracture demonstrated. No subluxation. Mild curvature of the thoracic curve convex right. No paravertebral soft tissue mass identified. RAD/Thoracic Spine 3 Views IMPRESSION: Several mild upper/mid thoracic vertebral body compression fractures of uncertain age. CT and/or MRI may be helpful for further evaluation, if clinically indicated. Electronically Signed: Sho Gordon MD at 7:30 EDT ,
--- NOTE | 2024-05-11 04:53 | RAD_ITS ---
INDICATION: pain EXAMINATION/TECHNIQUE: X-RAY - XR Spine Lumbar 2 or 3 Views COMPARISON: None. FINDINGS: The vertebral bodies are normal in height. No definite fracture demonstrated. Facet arthropathy most pronounced at the lower levels. Minimal anterior subluxation of L5 on S1. No paravertebral soft tissue mass identified. RAD/Lumbar Spine 2 or 3 Views IMPRESSION: No evidence of fracture or traumatic subluxation. Minimal anterolisthesis at L5-S1 likely secondary to degenerative changes. Electronically Signed: Sho Gordon MD at 7:39 EDT ,
[2024-05-11] MEDS: Orphenadrine 100 MG Tablet PO (05:08)
[2024-05-11] MEDS: oxyCODONE 5 MG Tablet PO (05:08)
[2024-05-11 06:16] VITALS: BP 152/82; PULSE 75; RESP 18
--- NOTE | 2024-05-11 07:31 | EX.ED.DYSGE1 ---
HPI History of Present Illness Chief Complaint: Fall Informant: patient and spouse/S.O. Narrative Narrative: Patient is a 79-year-old female with past medical history of hypertension fibromyalgia and osteoporosis. She states a few hours prior to arrival she was standing on a stool trying to get an object off of a shelf. She states that doing so caused her to lose her balance and she fell landing on her left side. She denies striking her head or any loss of consciousness and she denies any history of bleeding disorder or blood thinner use. She states she was able to get back up and ambulate following the fall but as time passed her pain is increased and therefore she comes in for evaluation. 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 IBS (irritable bowel syndrome) Lactose intolerance Malaise and fatigue Osteoarthritis Osteoporosis Panhypopituitarism Pituitary abnormality Seasonal allergies Secondary adrenal insufficiency Tumors Home Medications ?Medication ?Instructions ?Recorded ?Last Taken ?Type calcium carbonate 1,200 mg PO DAILY supplement 08/19/18 08/18/18 History cholecalciferol (vitamin D3) 50 1,000 unit PO DAILY vitamin 08/19/18 08/18/18 History mcg (2,000 unit) capsule enalapril maleate 2.5 mg tablet 2.5 mg PO QHS blood pressure 08/19/18 01/22/24 History omeprazole 20 mg capsule,delayed 20 mg PO DAILY reflux 08/19/18 07/17/19 05:40 History release denosumab 60 mg/mL subcutaneous 60 mg subcut [id number] #1 mL 05/20/23 Unknown Rx syringe (Prolia) hydrocortisone 10 mg tablet 10 mg PO .COMPLEX #180 tabs 12/09/23 Unknown Rx levothyroxine 25 mcg tablet 25 mcg PO .1 qd, 2 Wed and Wed04/22/24 Unknown Rx thyroid #108 tabs estradiol 0.01% (0.1 mg/gram) vaginal .2-3XWEEK 05/11/24 Unknown History vaginal cream magnesium 200 mg tablet 100 mg PO .3XWEEK 05/11/24 Unknown History methocarbamol 500 mg tablet 500 mg PO 4X/DAY PRN Muscle 05/11/24 Unknown Rx pain/spasm #40 tabs multivitamin (Daily Multi-Vitamin 1 tab PO .3XWEEK 05/11/24 Unknown History tablet) oxycodone 5 mg capsule 5 mg PO Q6H PRN pain 3 days #12 05/11/24 Unknown Rx caps Allergy/AdvReac Type Severity Reaction Status Date / Time nitrofurantoin Allergy Rash Verified 05/11/24 04:20 Penicillins (PCN) Allergy Hives Verified 05/11/24 04:20 rofecoxib (From Vioxx) AdvReac Nausea/Vom/ Verified 05/11/24 04:20 Diarrhea Family History Father Cancer lung Colon cancer Sister Breast cancer Mother Asthma Hypertension CVA (cerebral vascular accident) Unknown Anxiety Asthma Arthritis Breast cancer Colon cancer Diabetes Hypertension Hyperlipidemia Severe allergy Surgical History H/O hand surgery History of benign neoplasm of pituitary gland History of cataract extraction History of colonoscopy (~2013) History of colonoscopy (~06/2019) History of esophagogastroduodenoscopy (EGD) (~2013) History of esophagogastroduodenoscopy (EGD) (~06/2019) History of laparoscopic cholecystectomy History of tubal ligation Status post bunionectomy Social History Smoking Status: Never smoker alcohol intake: never substance use type: does not use what type of physical activity do you participate in: other frequency: 3-4 times per week ROS ROS ED Constitutional Constitutional ED: Denies chills or fever(s) Eyes Eyes: Denies blurry vision, change in vision or diplopia ENT ENT ED: Denies sore throat Cardiovascular Cardiovascular: Denies chest pain Respiratory/Chest Respiratory/Chest: Denies cough or dyspnea Gastrointestinal Gastrointestinal: Denies abdominal pain, diarrhea, nausea or vomiting Genitourinary Genitourinary ED: Denies dysuria or hematuria Musculoskeletal Musculoskeletal: Reports back pain and neck pain Integumentary Denies Abrasions or rash Neurologic Neurologic: Reports headache(s) Hematologic/Lymphatic Hematologic/Lymphatic: Denies easy bleeding or easy bruising EXAM Physical Exam Const Vital Signs: 05/11/24 04:16 05/11/24 06:16 05/11/24 06:46 Temperature 97.3 F L Temperature Source Oral Pulse Rate 68 75 Respiratory Rate 14 18 Respiratory Effort Normal Blood Pressure 178/72 H 152/82 H Blood Pressure Mean 107 105 Pulse Ox 99 Oxygen Delivery Method Room Air Room Air Positive well nourished and well developed General Appearance ED: well developed; Negative for pallor HEENT HEENT Narrative: Normocephalic atraumatic No signs of depressed or basilar skull fracture Eyes PERRL and EOMs intact bilaterally General Eye ED: Negative for pale conjunctiva or scleral icterus Neck Neck Narrative: No bony deformity or step-off of the cervical spine but there is lower midline pain with palpation Chest Wall Chest Narrative: No bony deformity or crepitance However there is diffuse anterior chest wall pain with palpation Resp normal respiratory effort and clear to auscultation bilaterally Cardio regular rate and regular rhythm GI normal to inspection, nondistended, normoactive bowel sounds, non-tender, non-distended and no masses Auscultation: normoactive bowel sounds Palpation: soft Back/Spine Back/Spine Narrative: No bony deformity or step-off of the thoracic or lumbar spine but there is pain with palpation over top the midline of the upper thoracic vertebrae regions 3-7. Extremity Extremity Narrative: Pelvis is stable there is no shortening or external rotation of either lower extremity. Patient does have pain on palpation along both the right and left greater trochanters and in the inguinal region over top the pubic rami bilaterally. Neuro oriented x3, CN's II-XII intact bilaterally and no sensory deficits noted Sensorium / Orientation: alert Psych mental status grossly normal Skin no rashes or lesions noted and no wounds Skin Narrative: No abrasions or ecchymosis noted General Skin Exam: Negative for jaundice or pallor MDM MDM MDM Narrative Medical decision making narrative: Patient presented to the ER hypertensive but otherwise with stable vitals. She reported a mechanical fall so I felt no need for cardiac or syncope workup. However based on the fall and her advanced age there is concern for traumatic brain injury such as skull fracture versus subdural or epidural hematoma. With midline neck discomfort there is concern for cervical compression fracture or spondylolisthesis. With pain in the upper back there is also concern for vertebral compression fracture and has patient reports pain in bilateral hips and pubic rami femoral neck fracture versus pubic rami fracture is in the differential. CTs of the head and cervical spine revealed no acute traumatic finding. X-ray of the lumbar spine showed age-indeterminate compression fractures in the pelvis x-ray revealed a pubic rami fracture. I discussed with patient obtaining a CT scan of her thoracic spine for better differentiation of this fall tonight because the fracture or if they have been present and is worsened by the fall. She states however she is feeling better after the medication provided in the ER and does not want to stay in the hospital any longer. As the patient does not have signs of retropulsion on CT scan and she is neurovascular intact by physical exam and is able to ambulate I do not feel there is need for an emergent orthopedic consultation or further workup as the pubic rami fracture is nonsurgical. She be prescribed pain medication and muscle relaxers to help with symptoms and can follow-up on an outpatient basis. History & Record Review Discussion w/independent historian: Patient and Significant other Radiography Diagnostic Testing: Clinical Impression(s) from Imaging Studies Brain CT 05/11/24 04:53 IMPRESSION: No acute abnormality. Chronic microvascular ischemic disease. Partially empty sella. Electronically Signed: Sho Gordon MD at 7:45 EDT Reading Location ID and State: [place] / [employer] Tel , Service support , Cervical Spine CT 05/11/24 04:53 IMPRESSION: No evidence of fracture or traumatic subluxation. Minimal anterolisthesis at C7-T1 likely secondary to degenerative changes. Electronically Signed: Sho Gordon MD at 8:01 EDT Reading Location ID and State: [place] / [place] Tel , Service support , Chest X-Ray 05/11/24 04:53 IMPRESSION: No evidence of active intrathoracic disease. Electronically Signed: Sho Gordon MD at 6:47 EDT Reading Location ID and State: [place] / [place] Tel , Service support , Hip/Pelvis X-Ray 05/11/24 04:53 IMPRESSION: Fracture of the right inferior pubic ramus. Electronically Signed: Sho Gordon MD at 7:33 EDT , Lumbar Spine X-Ray 05/11/24 04:53 IMPRESSION: No evidence of fracture or traumatic subluxation. Minimal anterolisthesis at L5-S1 likely secondary to degenerative changes. Electronically Signed: Sho Gordon MD at 7:39 EDT , Thoracic Spine X-Ray 05/11/24 04:53 IMPRESSION: Several mild upper/mid thoracic vertebral body compression fractures of uncertain age. CT and/or MRI may be helpful for further evaluation, if clinically indicated. Electronically Signed: Sho Gordon MD at 7:30 EDT , Chest x-ray as interpreted by the emergency medicine physician reveals no acute infiltrate pneumothorax or pleural effusion or obvious rib fracture Thoracic spine x-ray as interpreted by the emergency medicine physician reveals degenerative changes with upper mid thoracic vertebral body compression fractures of uncertain age Lumbar spine x-ray as interpreted by the emergency medicine physician also reveals degenerative changes without obvious compression fracture or spondylolisthesis X-ray of the bilateral hips with 1 view pelvis reveals no acute femoral neck fracture or dislocation. There is a right inferior pubic rami fracture of uncertain age. Discharge Plan Triage Chief Complaint: Fall ED Provider: Kyle Torres Dx/Rx/DC Orders Clinical Impression: Multiple contusions, Closed fracture of pubic ramus, Closed compression fracture of thoracic vertebra, Osteoporosis, Fibromyalgia, Hypertension Instructions: Compression Fx, Bone Contusion, ED Pelvic Fracture Prescriptions: New oxycodone 5 mg capsule 5 mg PO Q6H PRN (Reason: pain) 3 Days Qty: 12 0RF methocarbamol 500 mg tablet 500 mg PO 4X/DAY PRN (Reason: Muscle pain/spasm) Qty: 40 0RF No Action Prolia 60 mg/mL syringe 60 mg subcut [id number] Qty: 1 1RF enalapril maleate 2.5 MG tablet 2.5 mg PO QHS omeprazole 20 capsule,delayed release(DR/EC) 20 mg PO DAILY calcium carbonate 600 MG tablet 1,200 mg PO DAILY cholecalciferol (vitamin D3) 2,000 UNIT capsule 1,000 unit PO DAILY estradiol 0.01 % (0.1 mg/gram) cream vaginal .2-3XWEEK multivitamin [Daily Multi-Vitamin] Tablet 1 tab PO .3XWEEK magnesium 200 mg tablet 100 mg PO .3XWEEK Patient Comments: NOT SURE OF THE DOSE hydrocortisone 10 mg tablet 10 mg PO .COMPLEX Qty: 180 1RF Rx Instructions: 10 mg PO 10 mg am and 5 mg afternoon. Double dose if fever.; levothyroxine 25 mcg tablet 25 mcg PO .1 qd, 2 Wed and Wed Qty: 108 3RF Primary Care Provider: Pastor Garcia Referrals: Pastor Garcia MD [Primary Care Provider] - Activity Restrictions/Additional Instructions: The x-ray of your upper back and pelvis show age indeterminant fractures of your thoracic vertebrae and your pubic ramus. These have most likely been present based on your history of osteoporosis and were worsened by your fall today. Follow-up with your family doctor to discuss potential orthopedic referral and or outpatient CT or MRI for improved imaging if needed. If you have any further concerns please return to the ER for repeat evaluation Print Language: Belarusian Disposition Disposition: Home, Self Care Discharge Date/Time: 05/11/24 08:03
[2024-05-11 08:02] VITALS: BP 137/69; PULSE 86; RESP 17; TEMP 36.7; O2SAT 99
== END 2024-05-11 08:03 | disposition home or self-care (01) ==
PROVIDERS: Emergency Provider Emergency Medicine; PCP Family Medicine; Visit Provider Emergency Medicine
DX: S22.009A Unspecified fracture of unspecified thoracic vertebra, initial encounter for closed fracture (principal); M80.08XA Age-related osteoporosis with current pathological fracture, vertebra(e), initial encounter for fracture; S32.501A Unspecified fracture of right pubis, initial encounter for closed fracture; M79.7 Fibromyalgia; I10 Essential (primary) hypertension; W08.XXXA Fall from other furniture, initial encounter; Z79.899 Other long term (current) drug therapy; K21.9 Gastro-esophageal reflux disease without esophagitis; Z98.51 Tubal ligation status; Z90.49 Acquired absence of other specified parts of digestive tract
CPT/HCPCS: 70450; 71046; 72072; 72100; 72125; 73503; 99282

== ENCOUNTER → 2024-05-20 | Outpatient (CLI) | payer MEDICARE, SELFPAY ==
[2024-05-20 11:25] LABS: ALB/GLOB Ratio 1.2 RATIO (0.9-2.4); AST(SGOT) 20 U/L (15-37); Alanine Aminotransfer ALT/SGPT 59 U/L (13-56); Albumin, Serum 3.7 g/dL (3.2-5.0); Alkaline Phosphatase 120 U/L (45-117); Anion Gap 7 (5-15); BUN 21 mg/dL (7-18); BUN/Creat Ratio 17.1 RATIO (10-20); Chloride 109 mmol/L (98-107); Creatinine, Serum 1.23 mg/dL (0.55-1.02); EST Glomerular Filtration Rate 45 mL/min (>60); Est Glom Filt Rate - Afr Amer 54 mL/min (>60); Free T3 1.9 pg/mL (2.18-3.98); Globulin 3.2 g/dL (2.2-4.2); Glucose 94 mg/dL (74-106); Potassium 3.4 mmol/L (3.5-5.1); Protein, Total 6.9 g/dL (6.4-8.2); Sodium Level 142 mmol/L (136-145); T4 Free Direct 0.78 ng/dL (0.76-1.46)
[2024-05-22 08:30] LABS: Vitamin D,25 Hydroxy 60.6 ng/mL
== END | disposition home or self-care (01) ==
LOC: LAB 10:11
PROVIDERS: PCP Family Medicine; Referring Provider Internal Medicine Endocrinology, Diabetes & Metabolism; Visit Provider Internal Medicine Endocrinology, Diabetes & Metabolism
DX: M81.0 Age-related osteoporosis without current pathological fracture (principal); E03.8 Other specified hypothyroidism; D49.7 Neoplasm of unspecified behavior of endocrine glands and other parts of nervous system; E27.49 Other adrenocortical insufficiency; E55.9 Vitamin D deficiency, unspecified
CPT/HCPCS: 36415; 80053; 82306; 84439; 84481

== ENCOUNTER → 2025-01-11 | Outpatient (CLI) | payer MEDICARE, SELFPAY ==
[2025-01-11 10:02] LABS: Absolute Lymphocyte Count 1.92 X10^3/uL (0.83-4.51); Absolute Neutrophil Count 9.3 X10^3/uL (2.0-7.7); Basophil# 0.08 X10^3/uL; Basophil% 0.6 % (0-1); Eosinophil# 0.32 X10^3/uL; Eosinophils% 2.6 % (0-5); Hematocrit 46.7 % (37-47); Hemoglobin 15.1 g/dL (12.0-15.0); Lymphocyte # 1.92 X10^3/ul (0.83-4.51); Lymphocyte % 15.5 % (19-41); Mean Corp Hgb Conc 32.3 g/dL (32-36); Mean Corpuscular Hgb 30.8 pg (27.0-32.0); Mean Corpuscular Volume 95.3 fL (81-99); Mean Platelet Vol. 9.9 fl (6.2-12.0); Monocyte# 0.68 X10^3/uL; Monocyte% 5.5 % (0-10); NRBC Flagged by Analyzer 0 % (0-5); Neutrophil # 9.33 X10^3/uL (2.7-7.7); Neutrophil % 75.3 % (47-70); Platelet Count 319 K/mm3 (150-450); RBC Distribution Width CV 14.1 % (11.6-14.6); RBC Distribution Width SD 49.9 fl (35.1-43.9); White Blood Count 12.4 K/mm3 (4.4-11.0)
[2025-01-11 10:39] LABS: ALB/GLOB Ratio 1.1 RATIO (0.9-2.4); AST(SGOT) 19 U/L (15-37); Alanine Aminotransfer ALT/SGPT 18 U/L (13-56); Albumin, Serum 3.7 g/dL (3.2-5.0); Alkaline Phosphatase 92 U/L (45-117); Anion Gap 5 (5-15); BUN 14 mg/dL (7-18); BUN/Creat Ratio 13.1 RATIO (10-20); Chloride 108 mmol/L (98-107); Cholesterol 212 mg/dL (200); Creatinine, Serum 1.07 mg/dL (0.55-1.02); EST Glomerular Filtration Rate 53 mL/min (>60); Est Glom Filt Rate - Afr Amer 64 mL/min (>60); Globulin 3.3 g/dL (2.2-4.2); Glucose 83 mg/dL (74-106); High Density Lipoprotein 59 mg/dL; Potassium 3.7 mmol/L (3.5-5.1); Sodium Level 141 mmol/L (136-145); Triglycerides 150 mg/dL; Very Low Density Lipoprotein 30 mg/dL (5-40)
[2025-01-11 12:12] LABS: Hepatitis C Antibody Non-Reactive (Nonreactive)
[2025-01-11 14:34] LABS: Vitamin D,25 Hydroxy 54.4 ng/mL
== END | disposition home or self-care (01) ==
LOC: LAB 09:10
PROVIDERS: PCP Family Medicine Geriatric Medicine; Referring Provider Family Medicine Geriatric Medicine; Visit Provider Family Medicine Geriatric Medicine
DX: Z13.89 Encounter for screening for other disorder (principal); E78.5 Hyperlipidemia, unspecified; I10 Essential (primary) hypertension; E03.9 Hypothyroidism, unspecified; E55.9 Vitamin D deficiency, unspecified
CPT/HCPCS: 36415; 80053; 80061; 82306; 84443; 85025; 86803

== ENCOUNTER → 2025-05-21 | Outpatient (CLI) | payer MEDICARE, SELFPAY ==
--- NOTE | 2025-05-21 16:35 | RAD_ITS ---
PROCEDURE: THORACIC SPINE 3 VIEWS 05/21/2025 REASON FOR EXAM: THORACIC BACK PAIN TECHNIQUE: THORACIC SPINE 3 VIEWS COMPARISON: Thoracic spine radiographs 05/11/2024 FINDINGS: Slight anterior wedging of several upper thoracic vertebral bodies, unchanged from 05/11/2024. Thoracic vertebral body heights are otherwise maintained. There is mild leftward curvature of the thoracic spine. [id number] multilevel disc height loss with endplate osteophyte formation. The visualized lungs are clear. Aortic atherosclerosis. RAD/Thoracic Spine 3 Views IMPRESSION: 1. Mild to moderate multilevel degenerative changes of the thoracic spine. 2. Slight anterior wedging of several upper thoracic vertebral bodies is uncha nged from 05/11/2024. Reading Location: [facility]
--- NOTE | 2025-05-21 16:35 | RAD_ITS ---
PROCEDURE: L/S SPINE MIN 4 VIEWS 05/21/2025 REASON FOR EXAM: LOW BACK PAIN TECHNIQUE: L/S SPINE MIN 4 VIEWS COMPARISON: Lumbar spine radiographs on 05/11/2024 FINDINGS: There are 5 [id number] lumbar-type vertebral bodies. Vertebral body heights are maintained. There is a proximally 5 mm anterolisthesis of L5 on S1, unchanged. No pars defect identified on the oblique images. [id number] multilevel disc height loss and endplate osteophyte formation with facet arthrosis, worst at L3- 4 through L5-S1. Aortic atherosclerosis. RAD/L/S Spine Min 4 Views IMPRESSION: [id number] degenerative changes of the lumbar spine, worst from L3-4 thro ugh L5-S1 and progressed since radiographs on 05/11/2024. Reading Location: [id number]
--- NOTE | 2025-05-21 16:45 | RAD_ITS ---
PROCEDURE: CERV SPINE 2 OR 3 VIEWS 05/21/2025 REASON FOR EXAM: NECK PAIN TECHNIQUE: CERV SPINE 2 OR 3 VIEWS COMPARISON: CT of the cervical spine 05/11/2024 FINDINGS: Cervical vertebral body heights and alignment are maintained. Multilevel disc height loss with uncovertebral and facet arthropathy, worst at C5-6 and C6-7. The odontoid views are unremarkable. Lung apices are clear. Prevertebral soft tissues are normal in thickness. RAD/Cerv Spine 2 or 3 Views IMPRESSION: Mild to moderate multilevel degenerative changes of the cervical spine, worst a t C5-6 and C6-7. Reading Location: [facility]
[2025-05-21 18:35] LABS: Free T3 2.1 pg/mL (2.18-3.98)
== END | disposition home or self-care (01) ==
LOC: RAD 16:33
PROVIDERS: Internal Medicine Endocrinology, Diabetes & Metabolism; PCP Family Medicine Geriatric Medicine; Referring Provider Family Medicine Geriatric Medicine; Visit Provider Family Medicine Geriatric Medicine
DX: E27.49 Other adrenocortical insufficiency (principal); E03.8 Other specified hypothyroidism; M54.2 Cervicalgia; M81.0 Age-related osteoporosis without current pathological fracture; M54.50 Low back pain, unspecified; M54.6 Pain in thoracic spine
CPT/HCPCS: 36415; 72040; 72072; 72110; 84439; 84481

== ENCOUNTER → 2025-06-04 | Outpatient (CLI) | payer MEDICARE, SELFPAY ==
[2025-06-04 10:58] LABS: Anion Gap 11 (5-15); BUN 22 mg/dL (4-19); BUN/Creat Ratio 17.2 RATIO (10-20); Calcium,Total 9.3 mg/dL (7.6-11.0); Carbon Dioxide 23.9 mmol/L (21.0-32.0); Chloride 104 mmol/L (98-108); Glucose 73 mg/dL (70-99); Potassium 4.3 mmol/L (3.3-5.1)
== END | disposition home or self-care (01) ==
LOC: LAB 09:28
PROVIDERS: PCP Family Medicine Geriatric Medicine; Referring Provider Family Medicine Geriatric Medicine; Visit Provider Family Medicine Geriatric Medicine
DX: N18.31 Chronic kidney disease, stage 3a (principal)
CPT/HCPCS: 36415; 80048

== ENCOUNTER → 2025-06-05 | Outpatient (CLI) | payer MEDICARE, SELFPAY ==
[2025-06-05 16:40] LABS: Mucous, Urine 0 SEEN /hpf (<or=2+); Red Blood Cells-Urine 0 SEEN /hpf (0-5); Squamous Epithelial Cells - UA 0 SEEN /hpf (5-10)
[2025-06-05 17:04] LABS: Hematocrit 46.6 % (37-47); Hemoglobin 15.3 g/dL (12.0-15.0); Immature Granulocytes Count 0.110 X10^3/uL (0.0-0.0); Mean Corp Hgb Conc 32.8 g/dL (32-36); Mean Corpuscular Volume 95.1 fL (81-99); Mean Platelet Vol. 10.0 fl (6.2-12.0); NRBC Flagged by Analyzer 0 % (0-5); Platelet Count 266 K/mm3 (150-450); RBC Distribution Width CV 14.5 % (11.6-14.6); RBC Distribution Width SD 50.7 fl (35.1-43.9); Red Blood Count 4.90 M/mm3 (4.2-5.4); White Blood Count 15.3 K/mm3 (4.4-11.0)
[2025-06-05 17:08] LABS: Color, Urine Straw (Yellow); Glucose, Dipstick Normal (Normal); Ketone-Dipstick Negative (Negative); Leukocyte Esterase-Dipstick Negative /ul (Negative); Nitrite-Dipstick Negative (Negative); Occult Blood-Urine 25 /ul (Negative); Protein-Dipstick Negative (Negative); Specific Gravity, Urine 1.015 (1.002-1.030); Urine Bilirubin Dipstick Negative (Negative)
[2025-06-05 17:57] LABS: AST(SGOT) 26 U/L (<=31); Alanine Aminotransfer ALT/SGPT 17 U/L (<=34); Albumin, Serum 4.5 g/dL (3.4-4.8); Alkaline Phosphatase 92 U/L (35-104); Anion Gap 11 (5-15); BUN 27 mg/dL (4-19); BUN/Creat Ratio 19.9 RATIO (10-20); Calcium,Total 9.3 mg/dL (7.6-11.0); Carbon Dioxide 23.9 mmol/L (21.0-32.0); Chloride 103 mmol/L (98-108); Globulin 2.5 g/dL (2.2-4.2); Glucose 93 mg/dL (70-99); Potassium 4.2 mmol/L (3.3-5.1); Pro- Brain NATRIURETIC PEPTIDE 178 pg/mL (<=1800)
--- OUTSIDE RECORDS SUMMARY | 2025-06-05 22:22 | XMS RPT_ITS | CCD ---
Author Organization 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 Kasey Bashir Primary Care Provider Dr. Kasey Bashir Referring Provider Dr. Lei Sung Attending Provider Elan Garcia MD Primary Care Provider Elan Garcia MD Primary Care Provider Elan Garcia MD Primary Care Provider Dr. Pastor Garcia Primary Care Provider [phone] Dr. Cory Anaya Emergency Provider Dr. Erik Yoder Attending Provider Dr. Ravin Ham Attending Provider [phone] Saida Maki Attending Provider Dr. Erik Yoder Admit Provider Dr. Erik Yoder Other Provider Dr. Dana Lux Attending Provider Dr. Dana Lux Other Provider Dr. Dana Lux Referring Provider Dr. Pastor Garcia Referring Provider Dr. Lei Sung Attending Provider Dr. Pastor Garcia Primary Care Provider Dr. Juan Liu Attending Provider Elan Garcia MD Primary Care Provider Podlogar GLUING MACHINE OPERATOR AUTOMATIC.Edna CHARLES Unavailable ELAN GARCIA Primary Care Unavailab le ELAN GARCIA Referring Unavailab le Blanca'PHOENIX, CATHERINE Attending Unavailable ELAN GARCIA Primary Care Unavailab ELAN Cline Attending Unavailab ELAN Cline Primary Care Unavailab le PODLOGAR, EDNA Attending Unavailable ELAN GARCIA Primary Care Unavailab le ELAN GARCIA Attending Unavailab ELAN Cline Primary Care Unavailab le ELAN GARCIA Referring Unavailab le ELAN GARCIA Primary Care Unavailab le PODLOGAR, EDNA Attending Unavailable ELAN GARCIA Primary Care Unavailab le PODLOGAR, EDNA Attending Unavailable ELAN GARCIA Primary Care Unavailab le PODLOGAR, EDNA Attending Unavailable ELAN GARCIA Primary Care Unavailab le OLDER, ADELINE Attending Unavailable ELAN GARCIA Primary Care Unavailab le PODLOGAR, EDNA Attending Unavailable ELAN GARCIA Primary Care Unavailab le ELAN GARICA Attending Unavailab ELAN Cline Primary Care Unavailab ELAN Cline Referring Unavailab le ELAN GARCIA Primary Care Unavailab ELAN Cline Attending Unavailab ELAN Cline Primary Care Unavailab ELAN Cline Referring Unavailab le ELAN GARCIA Primary Care Unavailab le PODLOGAR, EDNA Referring Unavailable ELAN GARCIA Primary Care Unavailab le ELAN GARCIA Attending Unavailab ELAN Cline Primary Care Unavailab ELAN Cline Referring Unavailab le ELAN GARCIA Primary Care Unavailab ELAN Cline Referring Unavailab le ELAN GARCIA Primary Care Unavailab ELAN Cline Referring Unavailab le JG HOWARD Attending Unavailable ELAN GARCIA Primary Care Unavailab le ELAN GARCIA Referring Unavailab le Bursley MD, Dr. Baumann Referring Provider King DIANA, Dr. Odom Attending Provider Josue ORTIZ, Dr. Yon Jara Primary Care Provider Dr. Yon Salas MD, Chi Attending Provider [phone] Dr. Yon Salas MD, Chi Referring Provider King DIANA, Dr. Odom Other Provider Josue, Yon Chi Referring Unavailable Josue, Yon Chi Attending Unavailable Josue, Yon Chi Primary Care Unavailable Josue, Yon Chi Primary Care Unavailable Josue, Yon Chi Referring Unavailable Josue, Yon Chi Attending Unavailable Lei Sung Consulting Unavailable Josue, Yon Chi Primary Care Unavailable Josue, Yon Chi Attending Unavailable Josue, Yon Chi Primary Care Unavailable Pastor Garcia Referring Unavailable Lei Sung Attending Unavailable Pastor Garcia Primary Care Unavailable Lei Sung Attending Unavailable Allergies Allergy Classification Reported Allergen(s) Allergy Type Date of Onset Reaction(s) Facility (20 sources) meloxicam; Translations: [MELOXICAM] Drug Allergy 03-16-20 13 GI Upset [facility] (20 sources) Penicillins; Translations: [PENICILLINS] Propensity to adverse reactions to drug (disorder) 08-02-20 02 Hives [facility] (20 sources) rofecoxib; Translations: [ROFECOXIB] Drug Allergy 03-16-20 13 GI [facility] (20 sources) Acetaminophen / HYDROcodone; Translations: [HYDROCODONE-ACETA MINOPHEN] Drug Allergy 02-22-20 19 Other: See Comments [facility] (20 sources) Nitrofurantoin; Translations: [NITROFURANTOIN] Drug Allergy 02-22-20 19 Other: See Comments [facility] (1 source) Nitrofurantoin Drug Allergy 05-18-20 [facility] Medications Current Medications Medication Drug Class(es) Dates Sig (Normalized) Sig (Original) Acetaminophen (Tylenol Extra Strength) 500 mg powder in packet (2 sources) Start: 05-18-2025 take 500-1000 mg by mouth every six hours as needed Acetaminophen (Tylenol Extra Strength) 500 mg powder in packet Active 500 - 1000 mg PO EVERY 6 HOURS as needed May 18, 2025 12:00am [id number] 200 actuat albuterol 0.09 mg/actuat metered dose inhaler (20 sources) beta2-Adrenergic Agonist Start: 12-20-2020 End: 03-08-2023 take 2 puff(s) by inhalation every four hours as needed for wheezing albuterol HFA (VENTOLIN HFA) 90 mcg/actuation inhaler Indications: Acute cough , Expiratory wheezing Inhale 2 Puffs as instructed every 4 hours as needed for wheezing/shortness of breath. 18 g 10/21/2022 Active Comment on above: Inhale 2 Puffs as in structed every 4 hours as needed for Wheezing/Shortness of Breath. aspirin 81 mg chewable tablet (20 sources) Platelet Aggregation Inhibitor, Nonsteroidal Anti-inflammatory Drug take 1 tablet by mouth once daily aspirin 81 mg chewable tablet Take 81 mg by mouth once daily. Taking Wed, Wed, and Wednesday Active Comment on above: Take 81 mg by mouth once daily. Taking Wed, Wed, and Wednesday calcium carbonate 1500 mg oral tablet (11 sources) Start: 08-19-2018 take 2 tablets by mouth once daily Calcium Carbonate 600 MG tablet Active 1200 mg PO DAILY August 19, 2018 12:00am supplement Start: 08-19-2018 take 1200 mg by mouth once guillermo ly Calcium Carbonate Active 1200 MG PO DAILY August 18, 2018 11:00pm Start: 08-19-2018 take 600 mg by mouth once mo y Calcium Carbonate Active 600 MG PO DAILY August 18, 2018 11:00pm Calcium Carbonate / vitamin D3 (20 sources) take 600 mg by mouth once daily CALCIUM CARBONATE/VITAMIN D3 (CALCIUM 600 + D ORAL) Take 600 mg by mouth once daily. Active take 600 mg by mouth once daily CALCIUM CARBONATE/VITAMIN D3 (CALCIUM 600 + D ORAL) Take 600 mg by mouth once daily. 0 Active Comment on above: Take 600 mg by mouth once daily. cholecalciferol 0.05 mg oral capsule (20 sources) Vitamin D Start: 08-19-2018 Cholecalciferol (Vitamin D3) 2,000 UNIT capsule Active 1000 U PO DAILY August 19, 2018 12:00am vitamin Start: 08-19-2018 take 1000 [IU] by [facility] once daily Cholecalciferol (Vitamin D3) Active 1000 UNIT PO DAILY August 18, 2018 11:00pm Start: 10-11-2017 take 1 capsule by [facility] once daily Cholecalciferol, Vitamin D3, 1,000 unit cap Take 1 capsule by mouth once daily. 10/11/2017 Active Comment on above: Take 1 capsule by [facility] once daily. CYANOCOBALAMIN, VITAMIN B-12, ORAL (20 sources) CYANOCOBALAMIN, VITAMIN B-12, ORAL Take by mouth. Active CYANOCOBALAMIN, VITAMIN B-12, ORAL Take by mouth. 0 Active Comment on above: Take by mouth. cyclobenzaprine hydrochloride 5 mg oral tablet (10 sources) Muscle Relaxant Start: 09-22-20 take 1 tablet by mouth every twelve hours as needed cyclobenzaprine (FLEXERIL) 5 mg tablet Take 1 tablet by mouth two times a day as needed for muscle spasm. 30 tablet 09/22/2024 Active Start: 11-19-2020 End: 04-22-2021 take 1 tablet by mouth twice daily as needed for muscle spasms cyclobenzaprine (FLEXERIL) 5 mg tablet Indications: Acute bilateral low back pain without sciatica Take 1 tablet by mouth twice daily as needed for Muscle Spasm. 60 tablet 11/19/2020 04/22/2021 Discontinued enalapril maleate 2.5 mg oral tablet (20 sources) Angiotensin Converting Enzyme Inhibitor Start: 05-20-2020 End: 01-30-2021 take 0.5 tablet by mouth once daily enalapril (VASOTEC) 2.5 mg tablet Take 0.5 tablets by mouth once daily. 45 tablet 3 05/20/2020 01/30/2021 Discontinued Start: 08-19-2018 End: 02-19-2025 take 1 tablet by mouth at bedtime Enalapril Maleate 2. 5 MG tablet Active 2.5 mg PO AT BEDTIME August 19, 2018 12:00am blood pressure Start: 08-19-2018 take 1.25 mg by mouth at bedti mo Enalapril Maleate Active 1.25 MG PO AT BEDTIME August 19, 2018 12:00am Comment on above: Take 1 tablet by [facility] once daily. estradiol 0.1 mg/ml vaginal cream (20 sources) Estrogen Start: 05-11-2024 Estradiol 0.01 % (0.1 mg/gram) cream Active VAGINAL .2-3XWEEK May 11, 2024 12:00am Start: 10-08-2023 estradiol (EST RACE) 0.01 % (0.1 mg/gram) vaginal cream Use 1 g vaginally two times a week. 42.5 g 2 10/08/2023 Active Comment on above: Use 1 g vaginally tw o times a week. fluconazole 150 mg oral tablet (1 source) Azole Antifungal Start: 02-02-20 End: 02-02-20 fluconazole (DIFLUCAN) 150 mg tablet Indications: Daron infection Take 1 tablet by mouth one time only for 1 dose. Repeat in 3 days as needed. 2 tablet 0 02/02/2024 02/02/2024 Active Comment on above: Take 1 tablet by nicolasa th one time only for 1 dose. Repeat in 3 days as needed. levoFLOXacin 250 mg oral tablet (2 sources) Quinolone Antimicrobial Start: 08-09-20 End: 08-12-20 take 1 tablet by mouth once daily levoFLOXacin (LEVAQUIN) 250 mg tablet Take 1 tablet by mouth once daily for 3 days. 3 tablet 0 08/09/2023 08/12/2023 Active Comment on above: Take 1 tablet by nicolasa th once daily for 3 days. multivitamin tablet (20 sources) take 1 tablet by mouth once daily multivitamin tablet Take 1 tablet by mouth once daily. Taking Mon, Wed, and Wednesday. Active take 1 tablet by mouth once mo y multivitamin tablet Take 1 tablet by mouth once daily. Taking Wed, Wed, and Wednesday. 0 Active take 1 tablet by mouth once mo y multivitamin tablet Take 1 tablet by mouth once daily. 0 Active Comment on above: Take 1 tablet by nicolasa th once daily. Take 1 tablet by nicolasa th once daily. Taking Mon, Wed, and Wednesday. pantoprazole 40 mg delayed release oral tablet (2 sources) Proton Pump Inhibitor Start: 05-18-20 take 1 tablet by mouth once daily Pantoprazole 40 mg tablet,delayed release (DR/EC) Active 40 mg PO DAILY May 18, 2025 12:00am Acid Reflux triamcinolone acetonide 1 mg/ml topical cream (7 sources) Corticosteroid Start: 04-13-20 End: 05-13-20 triamcinolone acetonide (KENALOG) 0.1 % cream Apply 1 application to affected area twice daily. Apply to affected area. Location: exterior genitalia 28.4 g 1 04/13/2022 05/13/2022 Active Comment on above: Apply 1 application to affected area twice daily. Apply to affected area. Location: exterior genitalia vitamin k 0.1 mg oral tablet (1 source) Start: 04-22-20 take 100 ug by mouth once daily Phytonadione (Vitamin K1) Active 100 MCG PO DAILY April 22, 2020 12:00am vitamin k2 0.04 mg oral tablet (1 source) Start: 05-14-20 take 40 ug by mouth every other day Vitamin K2 Active 40 MCG PO EVERY OTHER DAY May 14, 2020 12:00am Completed/Discontinued Medications Medication Drug Class(es) Dates Sig (Normalized) Sig (Original) acetaminophen 325 mg / HYDROcodone bitartrate 5 mg oral tablet (10 sources) Opioid Agonist Start: 06-13-2022 End: 01-22-2024 Hydrocodone-Acetami nophen 5-325 mg tablet Discontinued 1 {tbl} PO EVERY 6 HOURS NEEDED as needed for Pain 10 3 0 June 13, 2022 January 23, 2024 12:07am Fracture of right side of maxilla Maxillary fracture, right side, initial encounter for closed fracture Start: 06-13-2022 End: 01-22-2024 take 1 tablet by mouth every six hours as needed Hydrocodone-Acetaminophen Discontinued 1 TABLET PO EVERY 6 HOURS NEEDED 10 3 June 13, 2022 January 22, 2024 11:07pm benzonatate 100 mg oral capsule (8 sources) Non-narcotic Antitussive Start: 10-21-2022 take 1 capsule by mouth every eight hours as needed for cough and cough benzonatate (TESSALON PERLES) 100 mg capsule Indications: Acute cough Take 1 capsule by mouth three times daily as needed for cough. 30 capsule 1 10/21/2022 Active Comment on above: Take 1 capsule by [facility] three times daily as needed for cough. ciprofloxacin 500 mg oral tablet (6 sources) Quinolone Antimicrobial Start: 01-23-2024 End: 05-11-2024 take 1 tablet by mouth twice daily Ciprofloxacin Hcl (Cipro) 500 mg tablet Discontinued 500 mg PO TWICE A DAY 14 7 0 January 23, 2024 1:00am May 11, 2024 6:51am Comment on above: Take 1 tablet by nicolasa th two times a day. cortisone acetate 25 mg oral tablet (20 sources) Corticosteroid End: 09-07-2022 take 0.5 tablet by mouth once daily in the evening cortisone acetate 25 mg tablet Take 25 mg by mouth once daily. 1 tab in am and 1/2 tab in PM 09/07/2022 Discontinued Comment on above: Take 25 mg by mouth once daily. 1 tab in am and 1/2 tab in PM 1 ml denosumab 60 mg/ml prefilled syringe (20 sources) RANK Ligand Inhibitor Start: 04-24-2021 End: 05-20-2023 Denosumab (Prolia) 60 mg/mL syringe Discontinued 60 mg SC every 6 months 1 April 30, 2022 10:08am May 20, 2023 3:32pm Comment on above: Inject 60 mg subcuta neously one time only. Every 6 months Inject 60 mg subcuta neously once every 6 months. DULoxetine 30 mg delayed release oral capsule (2 sources) Serotonin and Norepinephrine Reuptake Inhibitor Start: 11-06-2020 End: 01-02-2021 take 1 capsule by mouth once daily DULoxetine (CYMBALTA) 30 mg capsule Indications: Acute bilateral low back pain without sciatica , Generalized muscle ache Take 1 capsule by mouth once daily. 30 capsule 2 11/06/2020 01/02/2021 Discontinued estrogens, conjugated (prison) 0.625 mg/ml vaginal cream (20 sources) Estrogen Start: 09-22-2023 End: 10-08-2023 conjugated estrogens (PREMARIN) vaginal cream Apply small amount to vaginal opening twice weekly as directed 90 g 1 09/22/2023 10/08/2023 Discontinued Start: 06-26-2019 End: 05-11-2024 Conjugated Estrogens (Premar in) 0.625 mg/gram cream Discontinued 0.3125 mg VAGINAL TWICE A WEEK June 26, 2019 12:00am May 11, 2024 6:51am hormones Start: 06-12-2019 End: 09-22-2023 conjugated estrogens (PREMAR IN) vaginal cream Apply small amount to vaginal opening twice weekly as directed 3 Tube 06/12/2019 09/22/2023 Discontinued Comment on above: Apply small amount t o vaginal opening twice weekly as directed gabapentin 100 mg oral capsule (4 sources) Anti-epileptic Agent Start: 024 End: take 1 capsule by mouth twice daily gabapentin (NEURONTIN) 100 mg capsule Indications: Acute left-sided low back pain with left-sided sciatica Take 1 capsule by mouth two times a day for 60 days. 60 capsule 1 09/25/2024 10/27/2024 Discontinued hydrocortisone 10 mg oral tablet (20 sources) Corticosteroid Start: 020 End: Hydrocortisone 10 mg tablet Discontinued 10 mg PO .COMPLEX 180 1 March 26, 2025 2:23pm May 18, 2025 11:14am 10 mg PO 10 mg am and 5 mg afternoon. Double dose if fever.; Comment on above: Take 10mg by mouth i n AM & 5mg in PM. Take 10mg by mouth i n AM & 5mg at 12pm & 5pm. levothyroxine sodium 0.025 mg oral tablet (20 sources) l-Thyroxine Start: 023 End: take 0.1 tablet by mouth once daily Levothyroxine 25 mcg tablet Discontinued 25 ug PO .1 qd, 2 Wed and Wed 108 3 April 22, 2024 8:42pm May 18, 2025 11:14am thyroid Start: 04-22-2020 End: 05-21-2023 take 1 tablet by mouth once daily Levothyroxine 25 mcg tablet Discontinued 25 ug PO DAILY 90 3 May 20, 2023 3:53pm May 21, 2023 7:20am thyroid Start: 08-19-2018 End: 04-22-2020 take 1 tablet by mouth once daily Levothyroxine 25 tablet Discontinued 12.5 ug PO DAILY August 19, 2018 12:00am April 22, 2020 10:47am thyroid Comment on above: Take 1 tablet by nicolasa th daily before breakfast. Magnesium (2 sources) Start: 05-11-20 End: 05-18-20 Magnesium 200 mg tablet Discontinued 100 mg PO .3XWEEK May 11, 2024 12:00am May 18, 2025 10:49am mecobalamin 1 mg sublingual tablet (11 sources) Start: 06-26-20 End: 04-22-20 Mecobalamin (Vitamin B12) 1,000 mcg tablet,disintegratin g Discontinued 1000 ug SL EVERY OTHER DAY June 26, 2019 12:00am April 22, 2020 9:55am methocarbamol 500 mg oral tablet (2 sources) Muscle Relaxant Start: 05-11-20 End: 05-18-20 take 1 tablet by mouth four times daily as needed for pain Methocarbamol 500 mg tablet Discontinued 500 mg PO 4 TIMES DAILY as needed for Muscle pain/spasm 40 0 May 11, 2024 7:50am May 18, 2024 2:56pm metroNIDAZOLE 500 mg oral tablet (9 sources) Nitroimidazole Antimicrobial Start: 01-23-20 End: 05-11-20 take 1 tablet by mouth three times daily Metronidazole 500 mg tablet Discontinued 500 mg PO THREE TIMES A DAY 21 7 0 January 23, 2024 1:00am May 11, 2024 6:52am Comment on above: Take 1 tablet by nicolasa th three times a day. TAKE ONE(2) TABLET TWO(2) TIMES DAILY FOR (1) DAY. Multivitamin (Daily Multi-Vitamin) tablet (2 sources) Start: 05-11-20 End: 05-18-20 Multivitamin (Daily Multi-Vitamin) tablet Discontinued 1 {tbl} PO .3XWEEK May 11, 2024 12:00am May 18, 2025 10:50am nitroglycerin 0.4 mg sublingual tablet (11 sources) Nitrate Vasodilator Start: 08-20-20 End: 01-22-20 Nitroglycerin 0.4 MG tablet, sublingual Discontinued 0.4 mg SL NEEDED as needed for Cardiac/Chest Pain 30 0 August 20, 2018 11:07am January 23, 2024 12:07am take one tab sublingually PRN if chest pain occurs Start: 08-20-2018 End: 01-22-2024 Nitroglycerin Discontinued 0 .4 MG SL NEEDED August 20, 2018 10:07am January 22, 2024 11:07pm take one tab sublingually PRN if chest pain occurs omeprazole 20 mg delayed release oral capsule (20 sources) Proton Pump Inhibitor Start: 05-18-2024 End: 05-18-2025 take 1 capsule by mouth twice daily Omeprazole 20 mg capsule,delayed release(DR/EC) Discontinued 20 mg PO TWICE A DAY May 18, 2024 2:56pm May 18, 2025 10:50am reflux Start: 07-16-2020 End: 04-26-2024 omeprazole (PRILOSEC) 20 mg capsule Indications: Gastroesophageal reflux disease without esophagitis Take one capsule twice daily 180 capsule 3 04/26/2024 Active Start: 08-19-2018 End: 05-18-2024 take 1 capsule by mouth once daily Omeprazole 20 capsule,delayed release(DR/EC) Discontinued 20 mg PO DAILY August 19, 2018 12:00am May 18, 2024 2:57pm reflux Comment on above: Take one capsule twi ce daily ondansetron 4 mg disintegrating oral tablet (20 sources) Serotonin-3 Receptor Antagonist Start: 01-24-20 End: 10-27-20 take 1 tablet by mouth every six hours as needed ondansetron orally disintegrating (ZOFRAN ODT) 4 mg disintegrating tablet Take 1 tablet by mouth every 6 hours as needed for nausea/vomiting. 30 tablet 01/24/2024 10/27/2024 Discontinued (Course of therapy completed) Comment on above: Take 1 tablet by nicolasa every 6 hours as needed for nausea/vomiting. oxyCODONE hydrochloride 5 mg oral capsule (2 sources) Opioid Agonist Start: 05-11-20 End: 05-18-20 take 1 capsule by mouth every six hours as needed for pain Oxycodone 5 mg capsule Discontinued 5 mg PO EVERY 6 HOURS as needed for pain 12 3 0 May 11, 2024 May 18, 2024 2:56pm Closed compression fracture of thoracic vertebra Closed fracture of pubic ramus predniSONE 1 mg oral tablet (20 sources) Start: 04-22-20 End: 04-23-20 take 4 tablets by mouth once daily Prednisone 1 mg tablet Discontinued 4 mg PO DAILY April 22, 2020 12:00am April 23, 2020 10:22am Start: 04-22-2020 End: 04-23-2020 take 4 mg by mouth once daily Prednisone Discontinued 4 MG PO DAILY April 21, 2020 11:00pm April 23, 2020 9:22am Start: 08-19-2018 End: 04-22-2020 take 4 mg by mouth once daily Prednisone Discontinued 4 mg PO DAILY August 19, 2018 12:00am April 22, 2020 9:54am Start: 08-19-2018 End: 04-22-2020 take 4 mg by mouth once daily Prednisone Discontinued 4 MG PO DAILY August 18, 2018 11:00pm April 22, 2020 8:54am Start: 08-19-2018 End: 04-22-2020 take 4 mg by mouth once daily Prednisone Discontinued 4 MG PO DAILY August 19, 2018 12:00am April 22, 2020 9:54am raloxifene hydrochloride 60 mg oral tablet (11 sources) Estrogen Agonist/Antagonist Start: 08-19-2018 End: 04-24-2021 take 1 tablet by mouth once daily Raloxifene 60 MG tablet Discontinued 60 mg PO DAILY August 19, 2018 12:00am April 24, 2021 11:40am 100 ml zoledronic acid 0.05 mg/ml injection (11 sources) Bisphosphonate Start: 04-29-2020 End: 04-24-2021 Zoledronic Ynow-Fkxsiaew-Vgs er 5 mg/100 mL piggyback Discontinued 5 mg .Route ONCE 100 0 April 29, 2020 12:00am April 24, 2021 11:40am IVPB over 20 minutes Problems Active Problems Problem Classification Problem Date Documented Da te Episodic/Chronic Abdominal pain (2 sources) Generalized abdominal pain; Translations: [Generalized abdominal pain] Episodic Blindness and vision defects (14 sources) Abnormal vision; Translations: [Unspecified visual disturbance] 04-01-2023 Episodic Chronic kidney disease (20 sources) Chronic kidney disease stage 3; Translations: [CKD (chronic kidney disease), stage III] Onset: 2 10-23-2020 Chronic Chronic kidney disease (2 sources) Chronic kidney disease; Translations: [Stage 3a chronic kidney disease (HCC)] Onset: 3 Diseases of white blood cells (11 sources) Leukocytosis; Translations: [Elevated white blood cell count, unspecified] Chronic Disorders of lipid metabolism (20 sources) Hyperlipidemia; Translations: [Hyperlipidemia, unspecified] Onset: 0 05-28-2010 Chronic Esophageal disorders (20 sources) Gastroesophageal reflux disease; Translations: [Gastro-esophageal reflux disease without esophagitis] Onset: 7 05-28-2010 Chronic Essential hypertension (20 sources) Essential hypertension; Translations: [Essential (primary) hypertension] Onset: 0 08-23-2018 Chronic Gastrointestinal hemorrhage (3 sources) Gastrointestinal hemorrhage; Translations: [Gastrointestinal hemorrhage, unspecified] 01-23-2024 Episodic Malaise and fatigue (11 sources) Malaise and fatigue; Translations: [Other malaise] 04-30-2022 Episodic Neoplasms of unspecified nature or uncertain behavior (11 sources) Neoplasm of pituitary gland; Translations: [Neoplasm of unspecified behavior of endocrine glands and other parts of nervous system] 04-30-2020 Episodic Noninfectious gastroenteritis (5 sources) Colitis; Translations: [Noninfective gastroenteritis and colitis, unspecified] Onset: 4 01-23-2024 Episodic Nonspecific chest pain (11 sources) Chest pain; Translations: [Chest pain, unspecified] 08-19-2018 Episodic Open wounds of extremities (20 sources) Open wound of lower limb with complication; Translations: [Unspecified open wound, unspecified lower leg, initial encounter] Onset: 0 Resolved: 3 05-28-2010 Episodic Open wounds of head; neck; and trunk (11 sources) Facial laceration ; Translations: [Laceration without foreign body of other part of head, subsequent encounter] Episodic Osteoarthritis (20 sources) Unilateral primary osteoarthritis of first carpometacarpal joint, right hand; Translations: [Arthritis of first carpometacarpal joint of right hand] Onset: 8 10-28-2018 Chronic Osteoporosis (20 sources) Senile osteoporosis; Translations: [Age-related osteoporosis without current pathological fracture] Onset: 7 05-28-2010 Chronic Other connective tissue disease (20 sources) Fibromyalgia; Translations: [Fibromyalgia] Onset: 5 03-26-2015 Episodic Other connective tissue disease (2 sources) Pain in right hand; Translations: [Pain in right hand] Episodic Other connective tissue disease (1 source) Pain in right lower limb; Translations: [Pain in right lower leg] 01-05-2024 Episodic Other connective tissue disease (2 sources) Pain of right lower leg; Translations: [Pain in right lower leg] 07-31-2024 Episodic Other connective tissue disease (1 source) Pain in left foot; Translations: [Pain in left foot] 05-30-2021 Episodic Other endocrine disorders (20 sources) Hypopituitarism; Translations: [Hypopituitarism] Onset: 1 08-05-2011 Chronic Other endocrine disorders (20 sources) Adrenal cortical hypofunction; 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] Onset: 3 03-10-2013 Chronic Other endocrine disorders (11 sources) 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; 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 Comment on above: secondary to tumor R esection Other endocrine disorders (11 sources) Hypocortisolism secondary to another disorder; 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] 04-30-2020 Chronic Other endocrine disorders (7 sources) Other adrenocortical insufficiency; 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] Onset: 5 Chronic Other endocrine disorders (3 sources) Hypopituitarism; 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] Onset: 4 04-01-2023 Chronic Other endocrine disorders (20 sources) Disorder of pituitary gland; Translations: [Disorder of pituitary gland, unspecified] Onset: 3 09-21-2023 Chronic Other eye disorders (8 sources) Subconjunctival hemorrhage; Translations: [Conjunctival hemorrhage, right eye] 06-21-2022 Episodic Other eye disorders (2 sources) Subconjunctival hemorrhage of right eye; Translations: [Conjunctival hemorrhage, right eye] 06-21-2022 Episodic Other female genital disorders (2 sources) Vaginal [...] for fracture with routine healing] Episodic Other fractures (20 sources) Other specified fracture of right pubis, subsequent encounter for fracture with routine healing; Translations: [Aftercare for healing traumatic fracture of hip] Onset: 4 05-13-2024 Episodic Other fractures (2 sources) Compression fracture of thoracic spine; Translations: [Wedge compression fracture of unspecified thoracic vertebra, initial encounter for closed fracture] 05-19-2024 Episodic Other gastrointestinal disorders (11 sources) History of gastroesophageal reflux disease; Translations: [Personal history of other diseases of the digestive system] 08-19-2018 Episodic Other injuries and conditions due to external causes (10 sources) Closed injury of head; Translations: [Unspecified injury of head, initial encounter] 06-21-2022 Episodic Other injuries and conditions due to external causes (2 sources) Contusion; Translations: [Unspecified multiple injuries, initial encounter] 05-19-2024 Episodic Other lower respiratory disease (2 sources) Expiratory wheezing; Translations: [Wheezing] Episodic Other lower respiratory disease (2 sources) Cough; Translations: [Acute cough] Episodic Other lower respiratory disease (1 source) Rib pain; Translations: [Pleurodynia] 12-01-2023 Episodic Other nervous system disorders (1 source) Other chronic pain; Translations: [Chronic bilateral low back pain with right-sided sciatica] Onset: 4 Chronic Other non-traumatic joint disorders (2 sources) Hip pain; Translations: [Pain in right hip] Episodic Other non-traumatic joint disorders (3 sources) Pain of right wrist; Translations: [Pain in right wrist] Episodic Other upper respiratory infections (1 source) Upper respiratory infection; Translations: [Acute upper respiratory infection, unspecified] 02-28-2024 Episodic Residual codes; unclassified (13 sources) History of neoplasm of pituitary gland; Translations: [Personal history of other specified conditions] 08-19-2018 Episodic Residual codes; unclassified (5 sources) Personal history of other specified conditions; Translations: [Personal history of other endocrine, metabolic, and immunity disorders] Onset: 5 Episodic Skull and face fractures (20 sources) Closed fracture of right maxilla; Translations: [Maxillary fracture, right side, subsequent encounter for fracture with routine healing] Episodic Spondylosis; intervertebral disc disorders; other back problems (20 sources) Chronic low back pain; Translations: [Chronic bilateral low back pain without sciatica] Onset: 1 Resolved: 1 Episodic Sprains and strains (10 sources) Sprain of wrist; Translations: [Unspecified sprain of right wrist, initial encounter] 06-21-2022 Episodic Thyroid disorders (20 sources) Secondary hypothyroidism; Translations: [Other specified hypothyroidism] Onset: Chronic Past or Other Problems Problem Classification Problem Date Documented Da te Episodic/Chronic Allergic reactions (20 sources) Allergic urticaria; Translations: [Allergic urticaria] Onset: 09-04-2009 Resolved: 04-15-2016 05-28-2010 Episodic Biliary tract disease (20 sources) Cholecystitis; Translations: [Cholecystitis, unspecified] Onset: 07-15-2011 Resolved: 10-10-2013 11-17-2021 Episodic Calculus of urinary tract (20 sources) Kidney stone; Translations: [Calculus of kidney] Onset: 07-10-2014 07-10-2014 Episodic Diseases of mouth; excluding dental (20 sources) Other diseases of tongue; Translations: [Other specified conditions of the tongue] Onset: 07-07-2011 Resolved: 04-15-2016 04-15-2016 Episodic E Codes: Adverse effects of medical drugs (2 sources) Allergic reaction; Translations: [Adverse effect of diagnostic agents, initial encounter] Onset: 01-29-2024 01-29-2024 Episodic E Codes: Fall (20 sources) Fall in home; Translations: [Unspecified fall, initial encounter] Onset: 05-24-2024 Episodic E Codes: Place of occurrence (1 source) Unspecified place in unspecified non-institutional (private) residence as the place of occurrence of the external cause; Translations: [Fall in home, subsequent encounter] Onset: 05-24-2024 Episodic Gastritis and duodenitis (20 sources) Acute gastritis; Translations: [Acute gastritis without bleeding] Onset: 08-28-2009 05-28-2010 Episodic Genitourinary symptoms and ill-defined conditions (20 sources) Microscopic hematuria; Translations: [Other microscopic hematuria] Onset: 07-10-2014 07-10-2014 Episodic Mycoses (2 sources) Candidiasis; Translations: [Candidiasis, unspecified] Onset: 02-02-2024 02-02-2024 Episodic Other and unspecified benign neoplasm (20 sources) Benign neoplasm of colon; Translations: [Benign neoplasm of colon, unspecified] Onset: 04-22-2009 05-28-2010 Episodic Other and unspecified benign neoplasm (20 sources) Pituitary adenoma; Translations: [Benign neoplasm of pituitary gland] Onset: 08-05-2011 Episodic Other and unspecified benign neoplasm (20 sources) Hemangioma; Translations: [Hemangioma unspecified site] Onset: 07-07-2011 Resolved: 04-15-2016 04-15-2016 Episodic Other and unspecified benign neoplasm (20 sources) Senile angioma; Translations: [Hemangioma of skin and subcutaneous tissue] Onset: 07-07-2011 Resolved: 04-15-2016 04-15-2016 Episodic Other and unspecified benign neoplasm (20 sources) Melanocytic nevus of trunk; Translations: [Melanocytic nevi of trunk] Onset: 07-07-2011 Resolved: 04-15-2016 04-15-2016 Episodic Other connective tissue disease (2 sources) Pain in right lower leg; Translations: [Pain in right lower leg] Onset: 01-05-2024 Episodic Other fractures (20 sources) Closed fracture thoracic vertebra; Translations: [Other fracture of unspecified thoracic vertebra, initial encounter for closed fracture] Onset: 06-01-2024 05-13-2024 Episodic Other fractures (1 source) Other fracture of unspecified thoracic vertebra, initial encounter for closed fracture; Translations: [Other fracture of unspecified thoracic vertebra, initial encounter for closed fracture (HCC)] Onset: 06-01-2024 Episodic Other inflammatory condition of skin (20 sources) Erythema; Translations: [Erythematous condition, unspecified] Onset: 09-04-2009 05-28-2010 Episodic Other inflammatory condition of skin (20 sources) Pruritus of skin; Translations: [Pruritus, unspecified] Onset: 09-04-2009 05-28-2010 Episodic Other screening for suspected conditions (not mental disorders or infectious disease) (3 sources) Patient encounter status; Translations: [Encounter for screening mammogram for malignant neoplasm of breast] Onset: 01-24-2025 Episodic Other skin disorders (20 sources) Inflamed seborrheic keratosis; Translations: [Inflamed seborrheic keratosis] Onset: 04-23-2010 05-28-2010 Episodic Other skin disorders (20 sources) Seborrheic keratosis; Translations: [Other seborrheic keratosis] Onset: 04-23-2010 05-28-2010 Episodic Other skin disorders (20 sources) Solar lentigo; Translations: [Other melanin hyperpigmentation] Onset: 07-07-2011 Resolved: 04-15-2016 04-15-2016 Episodic Other skin disorders (20 sources) Skin tag; Translations: [Other hypertrophic disorders of the skin] Onset: 07-07-2011 Resolved: 04-15-2016 04-15-2016 Episodic Other skin disorders (20 sources) Asteatosis cutis; Translations: [Xerosis cutis] Onset: 10-07-2012 Resolved: 04-15-2016 04-15-2016 Episodic Other skin disorders (20 sources) Changes in skin texture; Translations: [Other skin changes] Onset: 10-07-2012 Resolved: 04-15-2016 04-15-2016 Episodic Results Test Name Value Interpretation Reference Range Facility Cerv Spine 2 or 3 Viewson Cerv Spine 2 or 3 Views [facility] [address] [place], [place] [id number] Cerv Spine 2 or 3 Views MR#: [id number] Acct: [id number] Name: DORA BRYANT Rep #: [id number] : 1945 F 80 From: Zhou Andersen MD PCP: Dr. Yon Salas MD Status: REG CLI Study: Cerv Spine 2 or 3 Views Date of Exam: 05/21/25 Exam# [id number] Ordering Dr: Yon Salas MD PROCEDURE: CERV SPINE 2 OR 3 VIEWS 05/21/2025 REASON FOR EXAM: NECK PAIN TECHNIQUE: CERV SPINE 2 OR 3 VIEWS COMPARISON: CT of the cervical spine 05/11/2024 FINDINGS: Cervical vertebral body heights and alignment are maintained. Multilevel disc height loss with uncovertebral and facet arthropathy, worst at C5-6 and C6-7. The odontoid views are unremarkable. Lung apices are clear. Prevertebral soft tissues are normal in thickness. RAD/Cerv Spine 2 or 3 Views IMPRESSION: Mild to moderate multilevel degenerative changes of the cervical spine, worst at C5-6 and C6-7. Reading Location: [id number] CC: Dr. Yon Salas MD Prescription Eyeglass Maker: Signed Normal [facility] Free T3on 05-21-2025 Free T3 [Mass/Vol] 2.1 pg/mL Low 2.18-3.98 [facility] Comment on above: Performed By: #### L 506.0400, L501.49350 #### [facility] [address] [place], [place], [address] Free [id number] By: Lei Sung on 05-21-2025 Free T3 [Mass/Vol] 2.1 pg/mL Low 2.18-3.98 [facility] L/S Spine Min 4 Viewson 04-24 L/S Spine Min 4 Views [facility] [address] [place] [address] L/S Spine Min 4 Views MR#: [id number] Acct: [id number] Name: DORA BRYANT Rep #: [id number] : 1945 F 80 From: Zhou Andersen MD PCP: Dr. Yon Salas MD Status: REG CLI Study: L/S Spine Min 4 Views Date of Exam: 05/21/25 Exam# [id number] Ordering Dr: Yon Salas MD PROCEDURE: L/S SPINE MIN 4 VIEWS 05/21/2025 REASON FOR EXAM: LOW BACK PAIN TECHNIQUE: L/S SPINE MIN 4 VIEWS COMPARISON: Lumbar spine radiographs on 05/11/2024 FINDINGS: There are 5 hwo-xal-hekntoo lumbar-type vertebral bodies. Vertebral body heights are maintained. There is a proximally 5 mm anterolisthesis of L5 on S1, unchanged. No pars defect identified on the oblique images. Elmx-fz-jybqpism multilevel disc height loss and endplate osteophyte formation with facet arthrosis, worst at L3-4 through L5-S1. Aortic atherosclerosis. RAD/L/S Spine Min 4 Views IMPRESSION: Pisc-vk-bnhbnicc degenerative changes of the lumbar spine, worst from L3-4 through L5-S1 and progressed since radiographs on 05/11/2024. Reading Location: [id number] CC: Dr. Yon Salas MD Prescription Eyeglass Maker: Signed Normal [facility] T4 Free Directon 05-21-2025 T4 FREE DIRECT 0.80 ng/dL Normal 0.76-1.46 [facility] Comment on above: Performed By: #### L 506.0400, L501.40251 #### [facility] [address] [place], [address] T4 freeOrdered By: Lei Sung on 05-21-2025 Free T4 [Mass/Vol] 0.80 ng/dL 0.76-1.46 [facility] Thoracic Spine 3 Viewson Thoracic Spine 3 Views [facility] [address] [place], [place] [address] Thoracic Spine 3 Views MR#: [id number] Acct: [id number] Name: DORA BRYANT Rep #: [id number] : 1945 F 80 From: Zhou Andersen MD PCP: Dr. Yon Salas MD Status: REG CLI Study: Thoracic Spine 3 Views Date of Exam: 05/21/25 Exam# [id number] Ordering Dr: Yon Salas MD PROCEDURE: THORACIC SPINE 3 VIEWS 05/21/2025 REASON FOR EXAM: THORACIC BACK PAIN TECHNIQUE: THORACIC SPINE 3 VIEWS COMPARISON: Thoracic spine radiographs 05/11/2024 FINDINGS: Slight anterior wedging of several upper thoracic vertebral bodies, unchanged from 05/11/2024. Thoracic vertebral body heights are otherwise maintained. There is mild leftward curvature of the thoracic spine. Kbvy-kh-svucczta multilevel disc height loss with endplate osteophyte formation. The visualized lungs are clear. Aortic atherosclerosis. RAD/Thoracic Spine 3 Views IMPRESSION: 1. Mild to moderate multilevel degenerative changes of the thoracic spine. 2. Slight anterior wedging of several upper thoracic vertebral bodies is unchanged from 05/11/2024. Reading Location: [id number] CC: Dr. Yon Salas MD Prescription Eyeglass Maker: Signed Normal [facility] Endocrinology Visit Reporton 05-18-2025 Endocrinology Visit Report [facility] [address] [place], [place] [address] OFFICE VISIT Date of Service: 05/18/25 MR#: [id number] Acct: [id number] Name: DORA BRYANT Rep #: [id number] : 1945 Provider: Ina Herron Age/Sex: 80/F Location[place] [facility] [place] Status: Signed Intake Vital Signs 05/18/24 14:53 10/18/24 13:43 05/18/25 10:43 Height 4 ft 11 in 4 ft 11 in 4 ft 11 in Weight: 133 lb BMI 26.9 BP 139/85 H Blood Pressure Location Lt brachial Position Sitting Pulse 74 Pulse Source Monitor Pulse Oximetry (%) 99 Oxygen Delivery Method room air Intake Visit Reasons: 6 M FU Chief Complaint: Osteopororis, hypothyroid, pituitary tumor Director Payment Required: No Accompanied by: Self Is patient in pain?: Yes (Neck, Wrist ) Pain scale (1-10): 3 Allergies nitrofurantoin Allergy (Verified 05/18/25 10:49) Rash Penicillins (PCN) Allergy (Verified 05/18/25 10:49) Hives rofecoxib (From Vioxx) Adverse Reaction (Verified 05/18/25 10:49) Nausea/Vom/Diarrhea Medications ???Medication ???Instructions ???Recorded ???Confirmed ???Type calcium carbonate 1,200 mg PO DAILY supplement 08/1905/18/25 History cholecalciferol (vitamin D3) 50 1,000 unit PO DAILY vitamin 05/18/25 History mcg (2,000 unit) capsule enalapril maleate 2.5 mg tablet 2.5 mg PO QHS blood pressure 08/1905/18/25 History denosumab 60 mg/mL subcutaneous 60 mg subcut [id number] #1 mL 05/18/25 Rx syringe (Prolia) estradiol 0.01% (0.1 mg/gram) vaginal .2-3XWEEK 05/11/24 5 History vaginal cream acetaminophen 500 mg oral powder 500 - 1,000 mg PO Q6H PRN 05/18/25 05/18/25 History packet (Tylenol Extra Strength) hydrocortisone 10 mg tablet 10 mg PO .COMPLEX #180 tabs 05/18/25 Rx levothyroxine 25 mcg tablet 25 mcg PO .1 qd, 2 Wed and Wed05/18/25 Rx thyroid #108 tabs pantoprazole 40 mg tablet,delayed 40 mg PO DAILY Acid Reflux 05/18/25 History release Have you fallen in the past year?: No PFSH Medical History Malaise and fatigue Fibromyalgia Secondary adrenal insufficiency Tumors Pituitary abnormality Osteoporosis Osteoarthritis IBS (irritable bowel syndrome) Hormone deficiency Arthritis Seasonal allergies Lactose intolerance Diverticulosis Carpal tunnel syndrome Hiatal hernia GERD (gastroesophageal reflux disease) Panhypopituitarism HTN (hypertension) Diplopia 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 Benign essential hypertension Surgical History H/O hand surgery History of colonoscopy ( 06/2019) History of esophagogastroduodenoscopy (EGD) ( 06/2019) Status post bunionectomy History of benign neoplasm of pituitary gland History of cataract extraction History of laparoscopic cholecystectomy History of tubal ligation History of colonoscopy ( 2013) History of esophagogastroduodenoscopy (EGD) ( 2013) Family History Father Cancer lung Colon cancer Sister Breast cancer Mother Asthma Hypertension CVA (cerebral vascular accident) Unknown Anxiety Asthma Arthritis Breast cancer Colon cancer Diabetes Hypertension Hyperlipidemia Severe allergy Social History Smoking Status: Never smoker alcohol intake: never substance use type: does not use what type of physical activity do you participate in: other frequency: 3-4 times per week HPI HPI Chief Complaint: Osteopororis, hypothyroid, pituitary tumor Details: DORA BRYANT, is a 80 F who presents to the office today for follow up. 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 She had TSH on 08-17-2002 and radiation therapy on 08-20-2011. She has known secondary adrenal insufficiency and hypothyroidism. She takes hydrocortisone and levothyroxine 25 mcg daily. She had an MRI on 04-10-20 that showed no change from previous MRI from 2016. MRI March 2023 showed [address] April, showed partially empty sella. She reports that she is having vision problems and is concerned about her pituitary. She has been on Prolia for 3 years. She has compression fractures. She reports neck pain. ROS Const Constitutional: Positive for fatigue; No weakness or weight change Eyes Eyes: Positive for change in vision ENT ENT: Positive for neck pain Cardio Cardiology: No chest pain at rest, chest pain with exertion or shortness of breath Musc Musculoskeletal: Positive for joint pain, back pain and neck pain; No numbness Neuro Neurology: No weakness or numbness Skin Skin: (more content not included)... Normal [facility] CBC W/Diff, Automatedon 02- 0-2024 Absolute Lymph 1.92 X10 3/uL Normal 0.83-4.51 [facility] Comment on above: Performed By: #### L 500.4100, L501.9520, L506.1000, L100.0100, L500.4050 #### [facility] [address] [place], [address] Absolute Neut 9.3 X10 3/uL High 2.0-7.7 [facility] Comment on above: Performed By: #### L 500.4100, L501.9520, L506.1000, L100.0100, L500.4050 #### [facility] [address] [place], [address] Basophils/100 WBC (Bld) 0.6 % Normal 0-1 [facility] Comment on above: Performed By: #### L 500.4100, L501.9520, L506.1000, L100.0100, L500.4050 #### [facility] [address] [place], [address] Eosinophils/100 WBC (Bld) 2.6 % Normal 0-5 [facility] Comment on above: Performed By: #### L 500.4100, L501.9520, L506.1000, L100.0100, L500.4050 #### [facility] [address] [place], [address] Erythrocyte distribution width (RBC) [Ratio] 14.1 % Normal 11.6-14.6 [facility] Comment on above: Performed By: #### L 500.4100, L501.9520, L506.1000, L100.0100, L500.4050 #### [facility] [address] [place], [address] Hematocrit (Bld) [Volume fraction] 46.7 % Normal 37-47 [facility] Comment on above: Performed By: #### L 500.4100, L501.9520, L506.1000, L100.0100, L500.4050 #### [facility] [address] [place], [address] Hemoglobin (Bld) [Mass/Vol] 15.1 g/dL High 12.0-15.0 [facility] Comment on above: Performed By: #### L 500.4100, L501.9520, L506.1000, L100.0100, L500.4050 #### [facility] [address] [place], [address] IG% 0.500 Normal 0.0-0.9 [facility] Comment on above: Result Comment: IG% - Immature Granulocytes (promyelocytes, myelocytes and metamyelocytes) > 1% indicates that a LEFT SHIFT is Present. Performed By: #### L 500.4100, L501.9520, L506.1000, L100.0100, L500.4050 #### [facility] [address] [place], [address] Lymphocytes/100 WBC (Bld) 15.5 % Low 19-41 [facility] Comment on above: Performed By: #### L 500.4100, L501.9520, L506.1000, L100.0100, L500.4050 #### [facility] [address] [place], [address] MCH (RBC) [Entitic mass] 30.8 pg Normal 27.0-32.0 [facility] Comment on above: Performed By: #### L 500.4100, L501.9520, L506.1000, L100.0100, L500.4050 #### [facility] [address] [place], [address] MCHC (RBC) [Mass/Vol] 32.3 g/dL Normal 32-36 [facility] Comment on above: Performed By: #### L 500.4100, L501.9520, L506.1000, L100.0100, L500.4050 #### [facility] [address] [place], [address] MCV (RBC) [Entitic vol] 95.3 fL Normal 81-99 [facility] Comment on above: Performed By: #### L 500.4100, L501.9520, L506.1000, L100.0100, L500.4050 #### [facility] [address] [place], [address] Monocytes/100 WBC (Bld) 5.5 % Normal 0-10 [facility] Comment on above: Performed By: #### L 500.4100, L501.9520, L506.1000, L100.0100, L500.4050 #### [facility] [address] [place], [address] Neutrophils/100 WBC (Bld) 75.3 % High 47-70 [facility] Comment on above: Performed By: #### L 500.4100, L501.9520, L506.1000, L100.0100, L500.4050 #### [facility] [address] [place], [address] Nucleated RBC (Bld) [#/Vol] 0 10*3/uL Normal 0-5 [facility] Comment on above: Performed By: #### L 500.4100, L501.9520, L506.1000, L100.0100, L500.4050 #### [facility] [address] [place], [address] Platelet mean volume (Bld) [Entitic vol] 9.9 fL Normal 6.2-12.0 [facility] Comment on above: Performed By: #### L 500.4100, L501.9520, L506.1000, L100.0100, L500.4050 #### [facility] [address] [place], [address] Platelets (Bld) [#/Vol] 319 10*3/uL Normal 150-450 [facility] Comment on above: Performed By: #### L 500.4100, L501.9520, L506.1000, L100.0100, L500.4050 #### [facility] [address] [place], [address] RBC (Bld) [#/Vol] 4.90 10*6/uL Normal 4.2-5.4 [facility] Comment on above: Performed By: #### L 500.4100, L501.9520, L506.1000, L100.0100, L500.4050 #### [facility] [address] [place], [address] RDW SD 49.9 fl High 35.1-43.9 [facility] Comment on above: Performed By: #### L 500.4100, L501.9520, L506.1000, L100.0100, L500.4050 #### [facility] [address] [place], [address] WBC (Bld) [#/Vol] 12.4 10*3/uL High 4.4-11.0 [facility] Comment on above: Performed By: #### L 500.4100, L501.9520, L506.1000, L100.0100, L500.4050 #### [facility] [address] [place], [address] Comprehensive Metabolic Prof ilon 01-11-2025 Albumin [Mass/Vol] 3.7 g/dL Normal 3.2-5.0 [facility] Comment on above: Performed By: #### L 500.4100, L501.9520, L506.1000, L100.0100, L500.4050 #### [facility] [address] [place], [address] Albumin/Globulin [Mass ratio] 1.1 {ratio} Normal 0.9-2.4 [facility] Comment on above: Performed By: #### L 500.4100, L501.9520, L506.1000, L100.0100, L500.4050 #### [facility] [address] [place], [address] ALK P 92 U/L Normal 45-117 [facility] Comment on above: Performed By: #### L 500.4100, L501.9520, L506.1000, L100.0100, L500.4050 #### [facility] [address] [place], [address] ALT [Catalytic activity/Vol] 18 U/L Normal 13-56 [facility] Comment on above: Performed By: #### L 500.4100, L501.9520, L506.1000, L100.0100, L500.4050 #### [facility] [address] [place], [address] AST [Catalytic activity/Vol] 19 U/L Normal 15-37 [facility] Comment on above: Performed By: #### L 500.4100, L501.9520, L506.1000, L100.0100, L500.4050 #### [facility] [address] [place], [address] Bilirubin [Mass/Vol] 0.40 mg/dL Normal 0.20-1.00 [facility] Comment on above: Result Comment: For patients on eltrombopag therapy, use of Dimension [place] TBIL is not recommended. Performed By: #### L 500.4100, L501.9520, L506.1000, L100.0100, L500.4050 #### [facility] [address] [place], [address] BUN/CRE 13.1 RATIO Normal 10-20 [facility] Comment on above: Performed By: #### L 500.4100, L501.9520, L506.1000, L100.0100, L500.4050 #### [facility] [address] [place], [address] CA,Total 9.0 mg/dL Normal 8.5-10.1 [facility] Comment on above: Performed By: #### L 500.4100, L501.9520, L506.1000, L100.0100, L500.4050 #### [facility] [address] [place], [address] Chloride [Moles/Vol] 108 mmol/L High 98-107 [facility] Comment on above: Performed By: #### L 500.4100, L501.9520, L506.1000, L100.0100, L500.4050 #### [facility] [address] [place], [address] CO2 [Moles/Vol] 28.0 mmol/L Normal 21.0-32.0 [facility] Comment on above: Performed By: #### L 500.4100, L501.9520, L506.1000, L100.0100, L500.4050 #### [facility] [address] [place], [address] Creatinine [Mass/Vol] 1.07 mg/dL High 0.55-1.02 [facility] Comment on above: Result Comment: The validity of the calculated GFR GFRAA in patients over 70 years has not been determined. Clinical correlation is essential. Performed By: #### L 500.4100, L501.9520, L506.1000, L100.0100, L500.4050 #### [facility] [address] [place], [address] EST GFR - AA 64 mL/min Normal >60 [facility] Comment on above: Result Comment: Afri can Palauan GFR Calc Performed By: #### L 500.4100, L501.9520, L506.1000, L100.0100, L500.4050 #### [facility] [address] [place], [address] GAP 5 Normal 5-15 [facility] Comment on above: Performed By: #### L 500.4100, L501.9520, L506.1000, L100.0100, L500.4050 #### [facility] [address] [place], [address] GFR/1.73 sq M.predicted among non-blacks MDRD (S/P/Bld) [Vol rate/Area] 53 mL/min/{1.73_m2} Low >60 [facility] Comment on above: Result Comment: Non- GFR Calc Performed By: #### L 500.4100, L501.9520, L506.1000, L100.0100, L500.4050 #### [facility] [address] [place], [address] Globulin (S) [Mass/Vol] 3.3 g/dL Normal 2.2-4.2 [facility] Comment on above: Performed By: #### L 500.4100, L501.9520, L506.1000, L100.0100, L500.4050 #### [facility] [address] [place], [address] Glucose [Mass/Vol] 83 mg/dL Normal 74-106 [facility] Comment on above: Performed By: #### L 500.4100, L501.9520, L506.1000, L100.0100, L500.4050 #### [facility] [address] [place], [address] Potassium [Moles/Vol] 3.7 mmol/L Normal 3.5-5.1 [facility] Comment on above: Performed By: #### L 500.4100, L501.9520, L506.1000, L100.0100, L500.4050 #### [facility] [address] [place], [address] Sodium [Moles/Vol] 141 mmol/L Normal 136-145 [facility] Comment on above: Performed By: #### L 500.4100, L501.9520, L506.1000, L100.0100, L500.4050 #### [facility] [address] [place], [address] T PROT 7.0 g/dL Normal 6.4-8.2 [facility] Comment on above: Performed By: #### L 500.4100, L501.9520, L506.1000, L100.0100,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 Reviewed: 09/22/2024 Reviewed by: Alyssa Smith LPN - Fully Assessed Reason for Visit: Results [95] Prescriptions as of 09/28/2024 - gabapentin (NEURONTIN) 100 mg capsule Take 1 capsule by mouth two times a day for 60 days. - cyclobenzaprine (FLEXERIL) 5 mg tablet Take 1 tablet by mouth two times a day as needed for muscle spasm. - enalapril (VASOTEC) 2.5 mg tablet Take 1 tablet by mouth once daily. - omeprazole (PRILOSEC) 20 mg capsule Take one capsule twice daily - ondansetron orally disintegrating (ZOFRAN ODT) 4 mg disintegrating tablet Take 1 tablet by mouth every 6 hours as needed for nausea/vomiting. - aspirin 81 mg chewable tablet Take 81 mg by mouth once daily. Taking Wed, Wed, and Wednesday - estradiol (ESTRACE) 0.01 % (0.1 mg/gram) vaginal cream Use 1 g vaginally two times a week. - levothyroxine (UNITHROID) 25 mcg tablet Take 1 tablet by mouth daily before breakfast. - albuterol HFA (VENTOLIN HFA) 90 mcg/actuation inhaler Inhale 2 Puffs as instructed every 4 hours as needed for wheezing/shortness of breath. - hydrocortisone (CORTEF) 10 mg tablet Take 10mg by mouth in AM AND 5mg at 12pm AND 5pm. - multivitamin tablet Take 1 tablet by mouth once daily. Taking Wed, Wed, and Wednesday. - denosumab (PROLIA) 60 mg/mL Inject 60 mg subcutaneously once every 6 months. - CYANOCOBALAMIN, VITAMIN B-12, ORAL Take by mouth. - Cholecalciferol, Vitamin D3, 1,000 unit cap Take 1 capsule by mouth once daily. - CALCIUM CARBONATE/VITAMIN D3 (CALCIUM 600 + D ORAL) Take 600 mg by mouth once daily. Problem List As Of Date 09/26/2024 Noted Resolved Senile Osteoporosis [M81.0] 03/10/2007 Esophageal Reflux [K21.9] 04/26/2007 Routine general medical examination at a health*04/22/2009 04/15/2016 Benign Neoplasm of Colon [D12.6] 04/22/2009 Acute Gastritis without Mention of Hemorrhage [*08/28/2009 Unspecified Erythematous Condition [L53.9] 09/04/2009 Allergic Urticaria [L50.0] 09/04/2009 Unspecified Urticaria [L50.9] 09/04/2009 Unspecified Pruritic Disorder [L29.9] 09/04/2009 Inflamed Seborrheic Keratosis [L82.0] 04/23/2010 Other Seborrheic Keratosis [L82.1] 04/23/2010 Open wound of leg with complication [S81.809A] 04/23/2010 09/23/2023 Hyperlipidemia [E78.5] 05/28/2010 Essential hypertension [I10] 09/16/2010 Angioma: tongue and other sites [D18.00] 07/07/2011 04/15/2016 Tongue discoloration: angioma and capillary marina*07/07/2011 04/15/2016 [place] angiomas [D18.01] 07/07/2011 04/15/2016 Solar Lentigines [L81.4] 07/07/2011 04/15/2016 Actinic skin damage [L57.8] 07/07/2011 04/15/2016 Melanocytic nevus of trunk: L lower chest [D22.*07/07/2011 04/15/2016 Skin tag [L91.8] 07/07/2011 04/15/2016 Cholecystitis [K81.9] 07/15/2011 10/10/2013 Disease of pituitary gland (HCC) [E23.7] 04/12/2023 Pituitary adenoma (HCC) [D35.2] 08/05/2011 Contact dermatitis and other eczema due to othe*10/07/2012 04/15/2016 Eczematous dermatitis [L30.9] 10/07/2012 04/15/2016 Xerosis cutis [L85.3] 10/07/2012 04/15/2016 Postinflammatory skin changes [R23.8] 10/07/2012 04/15/2016 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 Normal [facility] Bacteria Ur Culton Bacteria identified Cx Nom (U) ORGANISM ID: 1 10,000 -<50,000 CFU/ml Normal urogenital riana Normal [facility] Comment on above: Performed By: #### 6 30-4 ####[facility] LABCLIA [id number] [address] STATES OF [facility] CNOVon 09-25-2024 CNOV Office Visit (INTMWS ) DORA BRYANT ([id number]) 1945 F Date Time Provider Department 09/25/24 10:00 AM ADELINE BUTLER INTАЛЕКСАНДР During your visit today, we recorded the following information about you: Pulse Respiration Blood pressure Weight 90/minute 16/minute 130/78 60.3 kg Adeline Butler APRN.CNP 09/25/2024 12:48 PM Signed CC: Patient presents with: Recheck: Low back pain HPI Dora Bryant is a 79 year old female who presents today for continued low back pain. Patient is an established patient of Dr. Garcia. Was seen by PCP 3 days ago for right sided sciatica. Was given flexeril but became constipated. Did finally have a large firm brown stool this AM. For no identifiable cause it switched to lower left side radiating down left leg now. Pain varies from aching to stabbing. Rest helps slightly and tylenol helps her relax but does nothing for the stabbing pain. There is pain with walking but worse pain is with standing, putting all weight on left side, and position changes. Will have some lower abdominal pain. Denies fever chills, nausea, vomiting, difficulty urinating, blood in urine, loss of bowel bladder control, weakness, numbness, falls, or injuries. REVIEW OF SYSTEMS See HPI PAST MEDICAL HISTORY Diagnosis Date Acute gastritis [...] SURGICAL HISTORY OF 08/11/2013 Feet surgery (Dr. Culp)--[place] and marj PAST SURGICAL HISTORY OF Right 2021 Laser treatment for retinal tear ALLERGIES Meloxicam, Nitrofurantoin, [place] [Hydrocodone-Acetaminophen], Penicillins, and Vioxx [Rofecoxib] MEDICATIONS cyclobenzaprine (FLEXERIL) 5 mg tablet Take 1 tablet by mouth two times a day as needed for muscle spasm. enalapril (VASOTEC) 2.5 mg tablet Take 1 tablet by mouth once daily. omeprazole (PRILOSEC) 20 mg capsule Take one capsule twice daily ondansetron orally disintegrating (ZOFRAN ODT) 4 mg disintegrating tablet Take 1 tablet by mouth every 6 hours as needed for nausea/vomiting. aspirin 81 mg chewable tablet Take 81 mg by mouth once daily. Taking Wed, Wed, and Wednesday estradiol (ESTRACE) 0.01 % (0.1 mg/gram) vaginal cream Use 1 g vaginally two times a week. levothyroxine (UNITHROID) 25 mcg tablet Take 1 tablet by mouth daily before breakfast. (Patient taking differently: Take 25 mcg by mouth daily before breakfast. 2 tablets on wed, wed and 1 tablet all other days) albuterol HFA (VENTOLIN HFA) 90 mcg/actuation inhaler Inhale 2 Puffs as instructed every 4 hours as needed for wheezing/shortness of breath. hydrocortisone (CORTEF) 10 mg tablet Take 10mg by mouth in AM AND 5mg at 12pm AND 5pm. multivitamin tablet Take 1 tablet by mouth once daily. Taking Wed, Wed, and Wednesday. denosumab (PROLIA) 60 mg/mL Inject 60 mg subcutaneously once every 6 months. CYANOCOBALAMIN, VITAMIN B-12, ORAL Take by mouth. Cholecalciferol, Vitamin D3, 1,000 unit cap Take 1 capsule by mouth once daily. CALCIUM CARBONATE/VITAMIN D3 (CALCIUM 600 + D ORAL) Take 600 mg by mouth once daily. FAMILY HISTORY Problem Relation Age of Onset Stroke Mother Heart Mother Cancer Father LUNG WITH METASTASIS Colon Cancer Father Arthritis Sister Breast Cancer Sister Alzheimer's Disease Sister Diabetes Paternal Grandmother Social History Tobacco Use Smoking status: Never Smokeless tobacco: Never Substance Use Topics Alcohol use: (more content not included)... Normal [facility] Comprehensive metabolic 2000 panelon 09-25-2024 Albumin [Mass/Vol] 4.1 g/dL Normal 3.9-4.9 [facility] Comment on above: Order Comment: Speci men Type: BLOOD SPECIMENOrdering Facility: [facility] Address: [address] [place] [address] Performed By: #### 2 4331-1, ####[facility] LABIA [id number] [place] [address] [place] ALP [Catalytic activity/Vol] 94 U/L Normal 34-123 [facility] Comment on above: Order Comment: Speci men Type: BLOOD SPECIMENOrdering Facility: [facility] Address: [address] [place] [address] Performed By: #### 2 4331-, ####[facility] LABIA [id number] [place] [address] [place] ALT [Catalytic activity/Vol] 16 U/L Normal 7-38 [facility] Comment on above: Order Comment: Speci men Type: BLOOD SPECIMENOrdering Facility: [facility] Address: [address] [place] [address] Performed By: #### 2 4331-1, ####[facility] LABIA [id number] [place] [address] [place] Anion gap [Moles/Vol] 15 mmol/L Normal 8-15 [facility] Comment on above: Order Comment: Speci men Type: BLOOD SPECIMENOrdering Facility: [facility] Address: [address] [place] [address] Performed By: #### 2 4331-1, ####[facility] LABIA [id number] [place] [id number] [place] AST [Catalytic activity/Vol] 21 U/L Normal 13-35 [facility] Comment on above: Order Comment: Speci men Type: BLOOD SPECIMENOrdering Facility: [facility] Address: [address] [place] [address] Performed By: #### 2 4331-1, ####[facility] LABCLIA [id number] [place] [address] [place] Bilirubin [Mass/Vol] 0.7 mg/dL Normal 0.2-1.3 [facility] Comment on above: Order Comment: Speci men Type: BLOOD SPECIMENOrdering Facility: [facility] Address: [address] [place] [address] Performed By: #### 2 4331-1, ####[facility] LABCLIA [id number] [place] [address] [place] Calcium [Mass/Vol] 9.4 mg/dL Normal 8.5-10.2 [facility] Comment on above: Order Comment: Speci men Type: BLOOD SPECIMENOrdering Facility: [facility] Address: [address] [place] [address] Performed By: #### 2 4331-1, ####[facility] LABCLIA [id number] [place] [address] [place] Chloride [Moles/Vol] 103 mmol/L Normal 98-107 [facility] Comment on above: Order Comment: Speci men Type: BLOOD SPECIMENOrdering Facility: [facility] Address: [address] [place] [address] Performed By: #### 2 4331-1, ####[facility] LABCLIA [id number] [place] [address] [place] CO2 [Moles/Vol] 23 mmol/L Normal 22-30 [facility] Comment on above: Order Comment: Speci men Type: BLOOD SPECIMENOrdering Facility: [facility] Address: [address] [place] [address] Performed By: #### 2 4331-1, 41506-0 ####[facility] [id number] [place] [address] [place] Creatinine [Mass/Vol] 1.00 mg/dL High 0.58-0.96 [facility] Comment on above: Order Comment: Denice men Type: BLOOD SPECIMENOrdering Facility: [facility] Address: [address] [place] [address] Performed By: #### 2 4331-1, 30025-2 ####[facility] [id number] [place] [address] [place] Creatinine and Glomerular filtration rate.predicted panel (S/P/Bld) 58 mL/min/1.73m??? Low >=60 [facility] Comment on above: Order Comment: Denice blackwell Type: BLOOD SPECIMENOrdering Facility: [facility] Address: [address] [place] [address] Result Comment: Batool mated Glomerular Filtration Rate (eGFR) is calculated using the 2020 CKD-EPI creatinine equation. This equation utilizes serum creatinine, sex, and age as parameters. The creatinine assay has traceable calibration to isotope dilution-mass spectrometry. Refer to KDIGO guidelines for clinical interpretation. In patients with unstable renal function, e.g. those with acute kidney injury, the eGFR may not accurately reflect actual GFR. Performed By: #### 2 4331-1, 71076-0 ####[facility] LABIA [id number] [place] [address] [place] Glucose [Mass/Vol] 96 mg/dL Normal 74-99 [facility] Comment on above: Order Comment: Pieroi men Type: BLOOD SPECIMENOrdering Facility: [facility] Address: [address] [place] [address] Result Comment: The [place] Diabetes Association (ADA) provides guidance for cutoff values for fasting glucose and random glucose. The ADA defines fasting as no caloric intake for at least 8 hours. Fasting plasma glucose results between 100 to 125 mg/dL indicate increased risk for diabetes (prediabetes). Fasting plasma glucose results greater than or equal to 126 mg/dL meet the criteria for diagnosis of diabetes. In the absence of unequivocal hyperglycemia, results should be confirmed by repeat testing. In a patient with classic symptoms of hyperglycemia or hyperglycemic crisis, random plasma glucose results greater than or equal to 200 mg/dL meet the criteria for diagnosis of diabetes. Reference: Standards of Medical Care in Diabetes 2016, [place] Diabetes Association. Diabetes Care. 2016.39(Suppl 1). Performed By: #### 2 433-, ####[facility] LABCLIA [id number] [address] [address] [place] Potassium [Moles/Vol] 4.5 mmol/L Normal 3.7-5.1 [facility] Comment on above: Order Comment: Speci men Type: BLOOD SPECIMENOrdering Facility: [facility] Address: [address] [place] [address] Performed By: #### 2 43311-22, ####[facility] LABCLIA [id number] [address] [address] [place] Protein [Mass/Vol] 7.4 g/dL Normal 6.3-8.0 [facility] Comment on above: Order Comment: Pieroi men Type: BLOOD SPECIMENOrdering Facility: [facility] Address: [address] [place] [address] Performed By: #### 2 43311-22, ####[facility] LABCLIA [id number] [facility] [address] [address] [place] Sodium [Moles/Vol] 141 mmol/L Normal 136-144 [facility] Comment on above: Order Comment: Pieroi men Type: BLOOD SPECIMENOrdering Facility: [facility] Address: [address] [place] [id number] Performed By: #### 2 433-, ####[facility] LABCLIA [id number] [place] [address] [place] Urea nitrogen [Mass/Vol] 18 mg/dL Normal 7-21 [facility] Comment on above: Order Comment: Speci men Type: BLOOD SPECIMENOrdering Facility: [facility] Address: [address] [place] [address] Performed By: #### 2 4331-1, 89630-2 ####[facility] LABCLIA [id number] [place] [address] [place] Lipid 1996 panelon 4 Cholesterol [Mass/Vol] 178 mg/dL Normal <200 [facility] Comment on above: Order Comment: Speci men Type: BLOOD SPECIMENOrdering Facility: [facility] Address: [address] [place] [address] Result Comment: <200 mg/dL, Desirable 200-239 mg/dL, Borderline high >239 mg/dL, High Performed By: #### 2 4331-1, 34059-7 ####[facility] LABCLIA [id number] [place] [address] [place] Cholesterol in HDL [Mass/Vol] 52 mg/dL Normal >39 [facility] Comment on above: Order Comment: Speci men Type: BLOOD SPECIMENOrdering Facility: [facility] Address: [address] [place] [address] Result Comment: 40-5 9 mg/dL, Acceptable >59 mg/dL, High: Negative risk factor for coronary heart disease <40 mg/dL, Low: Positive risk factor for coronary heart disease Performed By: #### 2 4331-1, 17971-1 ####[facility] LABCLIA [id number] [address] [place] Cholesterol in LDL [Mass/Vol] 106 mg/dL High <100 [facility] Comment on above: Order Comment: Speci men Type: BLOOD SPECIMENOrdering Facility: [facility] Address: [address] [place] [address] Result Comment: <100 mg/dL, Optimal 100-129 mg/dL, Near optimal/above optimal 130-159 mg/dL, Borderline high 160-189 mg/dL, High >189 mg/dL, Very high Secondary prevention optimal LDL Cholesterol levels are recommended to be < 70 mg/dL Performed By: #### 2 4331-1, ####[facility] LABCLIA [id number] [address] [address] [place] Cholesterol in LDL/Cholesterol in HDL [Mass ratio] 2.04 {ratio} Normal <2.54 [facility] Comment on above: Order Comment: Denice men Type: BLOOD SPECIMENOrdering Facility: [facility] Address: [address] [place] [address] Result Comment: Refe stuartce: 1. National Cholesterol Education Program ATP III Guideline At-A-Glance Quick Desk Reference: National Heart, Lung, and Blood [place]. National Institutes of Health. 2001: NIH Publication No. 01-3305. 2. An International Atherosclerosis Society position paper: global recommendations for the management of dyslipidemia: executive summary, Atherosclerosis. 2014: 232(2):410-413. Performed By: #### 2 4331-, ####[facility] LABCLIA [id number] [place] [address] [place] Cholesterol in VLDL [Mass/Vol] 20 mg/dL Normal <30 [facility] Comment on above: Order Comment: Denice blackwell Type: BLOOD SPECIMENOrdering Facility: [facility] Address: [address] [place] [address] Performed By: #### 2 4331-, ####[facility] LABCLIA [id number] [address] [address] [place] Cholesterol non HDL [Mass/Vol] 126 mg/dL Normal <130 [facility] Comment on above: Order Comment: Denice blackwell Type: BLOOD SPECIMENOrdering Facility: [facility] Address: [address] [place] [address] Result Comment: <130 mg/dL, Optimal 130-159 mg/dL, Near optimal/above optimal 160-189 mg/dL, Borderline high 190-219 mg/dL, High >219 mg/dL, Very high Secondary prevention optimal non HDL Cholesterol levels are recommended to be <100 mg/dL Performed By: #### 2 4331-1, ####[facility] LABCLIA [id number] [place] [address] [place] Cholesterol.total/C holesterol in HDL [Mass ratio] 3.42 {ratio} Normal <5.10 [facility] Comment on above: Order Comment: Speci men Type: BLOOD SPECIMENOrdering Facility: [facility] Address: [address] [place] [address] Performed By: #### 2 4331-1, ####[facility] LABCLIA [id number] [place] [address] [place] FASTING TIME 12 hrs Normal [facility] Comment on above: Order Comment: Speci men Type: BLOOD SPECIMENOrdering Facility: [facility] Address: [address] [place] [address] Performed By: #### 2 4331-1, ####[facility] LABCLIA [id number] [place] [address] [place] Triglyceride [Mass/Vol] 102 mg/dL Normal <150 [facility] Comment on above: Order Comment: Speci men Type: BLOOD SPECIMENOrdering Facility: [facility] Address: [address] [place] [address] Result Comment: <150 mg/dL, Normal 150-199 mg/dL, Borderline high 200-499 mg/dL, High >499 mg/dL, Very high Performed By: #### 2 4331-1, ####[facility] LABCLIA [id number] [place] [address] [place] UA DIP, URINE (POC)on 2023 BILIRUBIN UA (POCT) Negative Negative [facility] CLARITY UA (POCT) Clear [facility] COLOR UA (POCT) Yellow [facility] GLUCOSE UA (POCT) Negative Negative mg/dL [facility] Hemoglobin Ql (U) Small Abnormal Negative [facility] Interpretation and review of laboratory results Abnormal [facility] KETONE UA (POCT) Negative Negative mg/dL [facility] LEUKOCYTES UA (POCT) Trace Abnormal Negative [facility] NITRITE UA (POCT) Negative Negative [facility] PH UA (POCT) 6.0 4.5 - 8.0 [facility] Protein Ql (U) Negative Negative mg/dL [facility] SPECIFIC GRAVITY UA (POCT) 1.015 1.005 - 1.030 [facility] UROBILINOGEN UA (POCT) 0.2 Normal E.U./dL [facility] Location:[address], [place], [place], [address] [place] [address] POINT OF CARE [facility] Urinalysis complete panel (U )on 09-25-2024 Bacteria LM.HPF (Urine sed) [#/Area] Negative Normal Negative [facility] Comment on above: Order Comment: Speci men Type: URINE SPECIMENOrdering Facility: [facility] Address: [address] [place] [address] Performed By: #### 2 4356-8 ####[facility] LABIA [id number] [place] [address] [place] Bilirubin Ql (U) Negative Normal Negative [facility] Comment on above: Order Comment: Speci men Type: URINE SPECIMENOrdering Facility: [facility] Address: [address] [place] [address] Performed By: #### 2 4356-8 ####[facility] LABIA [id number] [place] [address] [place] Clarity (Unsp spec) Clear Normal Clear [facility] Comment on above: Order Comment: Speci men Type: URINE SPECIMENOrdering Facility: [facility] Address: [address] [place] [address] Performed By: #### 2 4356-8 ####[facility] LABCLIA [id number] [place] [address] [place] Color (U) Yellow Normal Yellow [facility] Comment on above: Order Comment: Speci men Type: URINE SPECIMENOrdering Facility: [facility] Address: [address] [place] [address] Performed By: #### 2 4356-8 ####[facility] LABCLIA [id number] [place] [address] [place] Epithelial cells LM.HPF (Urine sed) [#/Area] Few Normal [facility] Comment on above: Order Comment: Speci men Type: URINE SPECIMENOrdering Facility: [facility] Address: [address] [place] [address] Performed By: #### 2 4356-8 ####[facility] LABCLIA [id number] [place] [address] [place] Glucose Test strip (U) [Mass/Vol] Negative Normal Negative [facility] Comment on above: Order Comment: Speci men Type: URINE SPECIMENOrdering Facility: [facility] Address: [address] [place] [address] Performed By: #### 2 4356-8 ####[facility] LABCLIA [id number] [place] [address] [place] Hemoglobin Ql (U) Negative Normal Negative [facility] Comment on above: Order Comment: Speci men Type: URINE SPECIMENOrdering Facility: [facility] Address: [address] [place] [address] Performed By: #### 2 4356-8 ####[facility] LABCLIA [id number] [place] [address] [place] Hyaline casts (Urine sed) [#/Area] 0 /[LPF] Normal 0 /LPF [facility] Comment on above: Order Comment: Speci men Type: URINE SPECIMENOrdering Facility: [facility] Address: [address] [place] [address] Performed By: #### 2 4356-8 ####[facility] LABCLIA [id number] [place] [address] [place] Ketones Ql (U) Negative Normal Negative [facility] Comment on above: Order Comment: Speci men Type: URINE SPECIMENOrdering Facility: [facility] Address: [address] [place] [address] Performed By: #### 2 4356-8 ####[facility] LABCLIA [id number] [place] [address] [place] Leukocyte esterase Test strip Ql (U) 1+ Abnormal Negative [facility] Comment on above: Order Comment: Speci men Type: URINE SPECIMENOrdering Facility: [facility] Address: [address] [place] [address] Performed By: #### 2 4356-8 ####[facility] LABCLIA [id number] [place] [address] [place] Nitrite Ql (U) Negative Normal Negative [facility] Comment on above: Order Comment: Speci men Type: URINE SPECIMENOrdering Facility: [facility] Address: [address] [place] [address] Performed By: #### 2 4356-8 ####[facility] LABCLIA [id number] [place] [address] [place] pH (U) 6.0 [pH] Normal <8.5 [facility] Comment on above: Order Comment: Speci men Type: URINE SPECIMENOrdering Facility: [facility] Address: [address] [place] [address] Performed By: #### 2 4356-8 ####[facility] LABCLIA [id number] [place] [address] [place] Protein (U) [Mass/Vol] Negative Normal Negative [facility] Comment on above: Order Comment: Speci men Type: URINE SPECIMENOrdering Facility: [facility] Address: [address] [place] [address] Performed By: #### 2 4356-8 ####[facility] LABCLIA [id number] [place] [address] [place] RBC LM.HPF (Urine sed) [#/Area] 3-5 /HPF Abnormal 0-2 /HPF [facility] Comment on above: Order Comment: Speci men Type: URINE SPECIMENOrdering Facility: [facility] Address: [address] [place] [address] Performed By: #### 2 4356-8 ####[facility] LABIA [id number] [place] [address] [place] Specific gravity (U) [Rel density] 1.019 Normal 1.005-1.030 [facility] Comment on above: Order Comment: Speci men Type: URINE SPECIMENOrdering Facility: [facility] Address: [address] [place] [address] Performed By: #### 2 4356-8 ####[facility] LABIA [id number] [place] [address] [place] Urobilinogen Ql (U) 0.2 EU/dL Normal 0.2-1.0 EU/dL [facility] Comment on above: Order Comment: Speci men Type: URINE SPECIMENOrdering Facility: [facility] Address: [address] [place] [address] Performed By: #### 2 4356-8 ####[facility] LABIA [id number] [place] [address] [place] WBC LM.HPF (Urine sed) [#/Area] 0-5 /HPF Normal 0-5 /HPF [facility] Comment on above: Order Comment: Speci men Type: URINE SPECIMENOrdering Facility: [facility] Address: [address] [place] [address] Performed By: #### 2 4356-8 ####[facility] LABCLIA [id number] [address] [address] [place] CNOVon 09-22-2024 CNOV Office Visit (FAMPWS ) DORA BRYANT ([id number]) 1945 F Date Time Provider Department 09/22/24 10:00 AM ELAN GARCIAWS During your visit today, we recorded the following information about you: Pulse Respiration Blood pressure Weight 87/minute 16/minute 126/70 59.9 kg Elan Garcia MD 09/25/2024 8:01 AM Signed Chief Complaint Patient presents with: Follow Up: 6 month HPI Dora Bryant is a 79 year old female who presents here today for evaluation of pain in her buttocks bilaterally and right leg. Patient complaining of pain which started in the last 3-4 days without fall or injury. Described as constant aching pain, currently 7/10. Radiates down the outside of her right leg down to mid zurita. Not sure what she was doing when pain started. Insidious onset. Exacerbated with sitting, walking, lifting. Treating with heating pad, tylenol. Heating pad working better than tylenol. Admits to tactile fever a couple days ago. Denies loss of bowel/bladder control, saddle anesthesia, weakness, rash, joint swelling. Symptoms stable. Past medical history, appointments, medications, allergies reviewed. [...] Nitrofurantoin Other: See Comments Possible allergic reaction [place] [Hydrocodone-* Other: See Comments Possible allergic reaction Penicillins Hives Vioxx [Rofecoxib] GI Upset Current Medications Current Outpatient Medications on File Prior to Visit Medication Sig enalapril (VASOTEC) 2.5 mg tablet Take 1 tablet by mouth once daily. omeprazole (PRILOSEC) 20 mg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 ligation 07/2002: PAST SURGICAL HISTORY OF Comment: 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 Culp)--[facility] and [facility]amm[facility] 2021: PAST SURGICAL HISTORY OF; Right Comment: Laser treatment for retinal tear Family History FAMILY HISTORY Problem Relation Age of Onset Stroke Mother Heart Mother Cancer Father LUNG WITH METASTASIS Colon Cancer Father Arthritis Sister Breast Cancer Sister Alzheimer's Disease Sister Diabetes Paternal Grandmother Patient Allergies ALLERGIES Allergen Reactions Meloxicam GI Upset Nitrofurantoin Other: See Comments Possible allergic reaction [place] [Hydrocodone-* Other: See Comments Possible allergic reaction Penicillins Hives Vioxx [Rofecoxib] GI Upset Current Medications Current Outpatient Medications on File Prior to Visit Medication Sig omeprazole (PRILOSEC) 20 mg capsule Take one capsule twice daily enalapril (VASOTEC) 2.5 mg tablet Take 1 tablet by mouth once daily. aspirin 81 mg chewable tablet Take 81 mg by mouth once daily. Taking Wed, Wed, and Wednesday estradiol (ESTRACE) 0.01 % (0.1 mg/gram) vaginal cream Use 1 g vaginally two times a week. levothyroxine (UNITHROID) 25 mcg tablet Take 1 tablet by mouth daily before breakfast. (Patient taking differently: Take 25 mcg by mouth daily before breakfast. 2 tablets on wed, wed and 1 tablet all other days) albuterol HFA (VENTOLIN HFA) 90 mcg/actuation inhaler Inhale 2 Puffs as instructed every 4 hours as needed for wheezing/shortness of breath. hydrocortisone (CORTEF) 10 mg tablet Take 10mg by mouth in AM AND 5mg at 12pm AND (more content not included)... Normal [facility] Comprehensive metabolic 2000 panelon 06-22-2024 Albumin [Mass/Vol] 4.3 g/dL Normal 3.9-4.9 [facility] Comment on above: Order Comment: Speci men Type: BLOOD SPECIMENOrdering Facility: [facility] Address: [address] [place] [address] Performed By: #### 2 4323-8 ####[facility] LABIA [id number] [place] [address] [place] ALP [Catalytic activity/Vol] 94 U/L Normal 34-123 [facility] Comment on above: Order Comment: Speci men Type: BLOOD SPECIMENOrdering Facility: [facility] Address: [address] [place] [address] Performed By: #### 2 4323-8 ####[facility] LABIA [id number] [place] [address] [place] ALT [Catalytic activity/Vol] 22 U/L Normal 7-38 [facility] Comment on above: Order Comment: Speci men Type: BLOOD SPECIMENOrdering Facility: [facility] Address: [address] [place] [address] Performed By: #### 2 4323-8 ####[facility] LABCLIA [id number] [place] [address] [place] Anion gap [Moles/Vol] 9 mmol/L Normal 8-15 [facility] Comment on above: Order Comment: Speci men Type: BLOOD SPECIMENOrdering Facility: [facility] Address: [address] [place] [address] Performed By: #### 2 4323-8 ####[facility] LABCLIA [id number] [place] [address] [place] AST [Catalytic activity/Vol] 26 U/L Normal 13-35 [facility] Comment on above: Order Comment: Speci men Type: BLOOD SPECIMENOrdering Facility: [facility] Address: [address] [place] [address] Performed By: #### 2 4323-8 ####[facility] LABCLIA [id number] [place] [address] [place] Bilirubin [Mass/Vol] 0.4 mg/dL Normal 0.2-1.3 [facility] Comment on above: Order Comment: Speci men Type: BLOOD SPECIMENOrdering Facility: [facility] Address: [address] [place] [address] Performed By: #### 2 4323-8 ####[facility] LABCLIA [id number] [place] [address] [place] Calcium [Mass/Vol] 9.6 mg/dL Normal 8.5-10.2 [facility] Comment on above: Order Comment: Speci men Type: BLOOD SPECIMENOrdering Facility: [facility] Address: [address] [place] [address] Performed By: #### 2 4323-8 ####[facility] LABCLIA [id number] [place] [address] [place] Chloride [Moles/Vol] 106 mmol/L Normal 98-107 [facility] Comment on above: Order Comment: Speci men Type: BLOOD SPECIMENOrdering Facility: [facility] Address: [address] [place] [address] Performed By: #### 2 4323-8 ####[facility] LABCLIA [id number] [place] [address] [place] CO2 [Moles/Vol] 26 mmol/L Normal 22-30 [facility] Comment on above: Order Comment: Speci men Type: BLOOD SPECIMENOrdering Facility: [facility] Address: [address] [place] [address] Performed By: #### 2 4323-8 ####[facility] LABIA [id number] [place] [address] [place] Creatinine [Mass/Vol] 1.04 mg/dL High 0.58-0.96 [facility] Comment on above: Order Comment: Speci men Type: BLOOD SPECIMENOrdering Facility: [facility] Address: [address] [place] [address] Performed By: #### 2 4323-8 ####[facility] LABIA [id number] [place] [address] [place] [facility] Creatinine and Glomerular filtration rate.predicted panel (S/P/Bld) 55 mL/min/1.73m??? Low >=60 [facility] Comment on above: Order Comment: Denice blackwell Type: BLOOD SPECIMENOrdering Facility: [facility] Address: [address] [place] [address] Result Comment: Batool mated Glomerular Filtration Rate (eGFR) is calculated using the 2020 CKD-EPI creatinine equation. This equation utilizes serum creatinine, sex, and age as parameters. The creatinine assay has traceable calibration to isotope dilution-mass spectrometry. Refer to KDIGO guidelines for clinical interpretation. In patients with unstable renal function, e.g. those with acute kidney injury, the eGFR may not accurately reflect actual GFR. Performed By: #### 2 4323-8 ####[facility] LABIA [id number] [place] [address] [place] Glucose [Mass/Vol] 63 mg/dL Low 74-99 [facility] Comment on above: Order Comment: Speci men Type: BLOOD SPECIMENOrdering Facility: [facility] Address: [address] [place] [address] Result Comment: The [place] Diabetes Association (ADA) provides guidance for cutoff values for fasting glucose and random glucose. The ADA defines fasting as no caloric intake for at least 8 hours. Fasting plasma glucose results between 100 to 125 mg/dL indicate increased risk for diabetes (prediabetes). Fasting plasma glucose results greater than or equal to 126 mg/dL meet the criteria for diagnosis of diabetes. In the absence of unequivocal hyperglycemia, results should be confirmed by repeat testing. In a patient with classic symptoms of hyperglycemia or hyperglycemic crisis, random plasma glucose results greater than or equal to 200 mg/dL meet the criteria for diagnosis of diabetes. Reference: Standards of Medical Care in Diabetes 2016, [place] [employer] Association. Diabetes Care. 2016.39(Suppl 1). Performed By: #### 2 4323-8 ####[facility] LABCLIA [id number] [place] [address] [place] Potassium [Moles/Vol] 4.0 mmol/L Normal 3.7-5.1 [facility] Comment on above: Order Comment: Speci men Type: BLOOD SPECIMENOrdering Facility: [facility] Address: [address] [place] [address] Performed By: #### 2 4323-8 ####[facility] LABCLIA [id number] [place] [address] [place] Protein [Mass/Vol] 6.5 g/dL Normal 6.3-8.0 [facility] Comment on above: Order Comment: Speci men Type: BLOOD SPECIMENOrdering Facility: [facility] Address: [address] [place] [address] Performed By: #### 2 4323-8 ####[facility] LABCLIA [id number] [place] [address] [place] Sodium [Moles/Vol] 141 mmol/L Normal 136-144 [facility] Comment on above: Order Comment: Speci men Type: BLOOD SPECIMENOrdering Facility: [facility] Address: [address] [place] [address] Performed By: #### 2 4323-8 ####[facility] LABCLIA [id number] [place] [address] [place] Urea nitrogen [Mass/Vol] 20 mg/dL Normal 7-21 [facility] Comment on above: Order Comment: Speci men Type: BLOOD SPECIMENOrdering Facility: [facility] Address: [address] [place] [address] Performed By: #### 2 4323-8 ####[facility] LABCLIA [id number] [place] [address] [place] Urinalysis complete panel (U )on 06-22-2024 Bacteria LM.HPF (Urine sed) [#/Area] Negative Normal Negative [facility] Comment on above: Order Comment: Speci men Type: URINE SPECIMENOrdering Facility: [facility] Address: [address] [place] [address] Performed By: #### 2 4356-8 ####[facility] LABCLIA [id number] [place] [address] [place] Bilirubin Ql (U) Negative Normal Negative [facility] Comment on above: Order Comment: Speci men Type: URINE SPECIMENOrdering Facility: [facility] Address: [address] [place] [address] Performed By: #### 2 4356-8 ####[facility] LABCLIA [id number] [place] [address] [place] Clarity (Unsp spec) Clear Normal Clear [facility] Comment on above: Order Comment: Speci men Type: URINE SPECIMENOrdering Facility: [facility] Address: [address] [place] [address] Performed By: #### 2 4356-8 ####[facility] LABCLIA [id number] [place] [address] [place] Color (U) Dark Yellow Abnormal Yellow [facility] Comment on above: Order Comment: Speci men Type: URINE SPECIMENOrdering Facility: [facility] Address: [address] [place] [address] Performed By: #### 2 4356-8 ####[facility] LABCLIA [id number] [address] [place] Epithelial cells LM.HPF (Urine sed) [#/Area] None Seen Normal [facility] Comment on above: Order Comment: Speci men Type: URINE SPECIMENOrdering Facility: [facility] Address: [address] [place] [address] Performed By: #### 2 4356-8 ####[facility] LABCLIA [id number] [place] [address] [place] Glucose Test strip (U) [Mass/Vol] Negative Normal Negative [facility] Comment on above: Order Comment: Speci men Type: URINE SPECIMENOrdering Facility: [facility] Address: [address] [place] [address] Performed By: #### 2 4356-8 ####[facility] LABCLIA [id number] [place] [address] [place] Hemoglobin Ql (U) Negative Normal Negative [facility] Comment on above: Order Comment: Speci men Type: URINE SPECIMENOrdering Facility: [facility] Address: [address] [place] [address] Performed By: #### 2 4356-8 ####[facility] LABCLIA [id number] [place] [address] [place] Hyaline casts (Urine sed) [#/Area] 0 /[LPF] Normal 0 /LPF [facility] Comment on above: Order Comment: Speci men Type: URINE SPECIMENOrdering Facility: [facility] Address: [address] [place] [address] Performed By: #### 2 4356-8 ####[facility] LABCLIA [id number] [address] [place] Ketones Ql (U) Negative Normal Negative [facility] Comment on above: Order Comment: Speci men Type: URINE SPECIMENOrdering Facility: [facility] Address: [address] [place] [address] Performed By: #### 2 4356-8 ####[facility] LABCLIA [id number] [place] [address] [place] Leukocyte esterase Test strip Ql (U) Negative Normal Negative [facility] Comment on above: Order Comment: Speci men Type: URINE SPECIMENOrdering Facility: [facility] Address: [address] [place] [address] Performed By: #### 2 4356-8 ####[facility] LABCLIA [id number] [place] [address] [place] Nitrite Ql (U) Negative Normal Negative [facility] Comment on above: Order Comment: Speci men Type: URINE SPECIMENOrdering Facility: [facility] Address: [address] [place] [address] Performed By: #### 2 4356-8 ####[facility] LABCLIA [id number] [place] [address] [place] pH (U) 5.5 [pH] Normal <8.5 [facility] Comment on above: Order Comment: Speci men Type: URINE SPECIMENOrdering Facility: [facility] Address: [address] [place] [address] Performed By: #### 2 4356-8 ####[facility] LABCLIA [id number] [place] [address] [place] Protein (U) [Mass/Vol] Negative Normal Negative [facility] Comment on above: Order Comment: Speci men Type: URINE SPECIMENOrdering Facility: [facility] Address: [address] [place] [address] Performed By: #### 2 4356-8 ####[facility] LABCLIA [id number] [place] [address] [place] RBC LM.HPF (Urine sed) [#/Area] 0-2 /HPF Normal 0-2 /HPF [facility] Comment on above: Order Comment: Speci men Type: URINE SPECIMENOrdering Facility: [facility] Address: [address] [place] [address] Performed By: #### 2 4356-8 ####[facility] [id number] [place] [address] [place] Specific gravity (U) [Rel density] 1.022 Normal 1.005-1.030 [facility] Comment on above: Order Comment: Speci men Type: URINE SPECIMENOrdering Facility: [facility] Address: [address] [place] [address] Performed By: #### 2 4356-8 ####[facility] [id number] [place] [address] [place] Urobilinogen Ql (U) 0.2 EU/dL Normal 0.2-1.0 EU/dL [facility] Comment on above: Order Comment: Speci men Type: URINE SPECIMENOrdering Facility: [facility] Address: [address] [place] [address] Performed By: #### 2 4356-8 ####[facility] [id number] [place] [address] [place] WBC LM.HPF (Urine sed) [#/Area] 0-5 /HPF Normal 0-5 /HPF [facility] Comment on above: Order Comment: Speci men Type: URINE SPECIMENOrdering Facility: [facility] Address: [address] [place] [address] Performed By: #### 2 4356-8 ####[facility] [id number] [address] [place] CNTHERAPYon 06-13-2024 CNTHERAPY OT/PT/Speech Visit ( PTWS) DORA BRYANT ([id number]) 1945 F Date Time Provider Department 06/13/24 10:15 AM BARBARA AHUMADA Date Time Provider Department Center 06/13/2024 10:15 AM [id number], MARIAH PTWS [place] Reason for Visit: Physical Therapy [503] Primary Visit Diagnosis:Fall in home, initial encounter [W19.XXXA, Y92.009] Other Visit Diagnosis:Closed fracture of ramus of right pubis with routine healing, subsequent encounter [S32.168H] Allergies As of Date: 06/13/2024 Noted Allergy Reaction MELOXICAM 03/16/2013 8 - GI Upset NITROFURANTOIN 02/21/2019 14 - Other: See Comments Comments: Possible allergic reaction NORCO (HYDROCODONE-ACETAMINOPHEN) 02/21/2019 14 - Other: See Comments Comments: Possible allergic reaction PENICILLINS 08/02/2002 4 - Hives VIOXX (ROFECOXIB) 03/16/2013 8 - GI Upset Date Reviewed: 03/22/2024 Reviewed by: Wendi Olvera LPN - Fully Assessed Prescriptions as of 06/13/2024 - omeprazole (PRILOSEC) 20 mg capsule Take one capsule twice daily - enalapril (VASOTEC) 2.5 mg tablet Take 1 tablet by mouth once daily. - ondansetron orally disintegrating (ZOFRAN ODT) 4 mg disintegrating tablet Take 1 tablet by mouth every 6 hours as needed for nausea/vomiting. - aspirin 81 mg chewable tablet Take 81 mg by mouth once daily. Taking Wed, Wed, and Wednesday - estradiol (ESTRACE) 0.01 % (0.1 mg/gram) vaginal cream Use 1 g vaginally two times a week. - levothyroxine (UNITHROID) 25 mcg tablet Take 1 tablet by mouth daily before breakfast. - albuterol HFA (VENTOLIN HFA) 90 mcg/actuation inhaler Inhale 2 Puffs as instructed every 4 hours as needed for wheezing/shortness of breath. - hydrocortisone (CORTEF) 10 mg tablet Take 10mg by mouth in AM AND 5mg at 12pm AND 5pm. - multivitamin tablet Take 1 tablet by mouth once daily. Taking Wed, Wed, and Wednesday. - denosumab (PROLIA) 60 mg/mL Inject 60 mg subcutaneously once every 6 months. - CYANOCOBALAMIN, VITAMIN B-12, ORAL Take by mouth. - Cholecalciferol, Vitamin D3, 1,000 unit cap Take 1 capsule by mouth once daily. - CALCIUM CARBONATE/VITAMIN D3 (CALCIUM 600 + D ORAL) Take 600 mg by mouth once daily. 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[employer]: Therapy (PT/OT/Speech/Resp) ID: [id number] 06/13/2024 10:44 AM Author: BARBARA AHUMADA Signed by BARBARA AHUMADA PAYROLL AUDITOR on 06/13/2024 at 10:44 AM Document text: Program_ID:[id number] Access Code: [email or web address] URL: [email or web address] Date: 06-13-2024 Prepared By: Jg Velasco Program Notes Exercises - Shoulder External Rotation and Scapular Retraction with Resistance - 1 x daily - 7 x weekly - 2 sets - 10 reps - Standing Shoulder Row with Anchored Resistance - 1 x daily - 7 x weekly - 2 sets - 10 reps - Standing Hip Abduction with Counter Support - 1 x daily - 7 x weekly - 2 sets - 10 reps - Sit to Stand - 1 x daily - 7 x weekly - 2 sets - 10 reps - Single Leg Stance with Support - 1 x daily - 7 x weekly - 2 sets - 2 reps - Shoulder extension with resistance - Neutral - 1 x daily - 7 x weekly - 2 sets - 10 reps - Clamshell - 1 x daily - 7 x weekly - 2 sets - 10 reps Normal [facility] THERAPY NTon 06-13-2024 THERAPY NT HNO ID: [id number] Author: BARBARA AHUMADA PTA Service: ? Author Type: Wood Processing Worker Type: Therapy (PT/OT/Speech/Resp) Filed: 06/13/2024 10:44 Note Text: Program_ID:[id number] Access Code: [email or web address] URL: [email or web address] Date: 06-13-2024 Prepared By: Jg Velasco Program Notes Exercises - Shoulder External Rotation and Scapular Retraction with Resistance - 1 x daily - 7 x weekly - 2 sets - 10 reps - Standing Shoulder Row with Anchored Resistance - 1 x daily - 7 x weekly - 2 sets - 10 reps - Standing Hip Abduction with Counter Support - 1 x daily - 7 x weekly - 2 sets - 10 reps - Sit to Stand - 1 x daily - 7 x weekly - 2 sets - 10 reps - Single Leg Stance with Support - 1 x daily - 7 x weekly - 2 sets - 2 reps - Shoulder extension with resistance - Neutral - 1 x daily - 7 x weekly - 2 sets - 10 reps - Clamshell - 1 x daily - 7 x weekly - 2 sets - 10 reps Normal [facility] CNPNon 06-02-2024 CNPN Telephone (PTWS) DORA BRYANT ([id number]) 1945 F Date Time Provider Department 06/02/24 JG HOWARD During your visit today, we recorded the following information about you: Mckeznie Lewis RN 06/02/2024 2:56 PM Signed Patient calling and is asking for direction on how to proceed. Patient states she received an update that her insurance company has approved 8 sessions of therapy at [facility] and she would like to continue therapy at [facility]. Patient asking if therapy department could advise her on how to proceed. Thank you. Allergies As of Date: 06/02/2024 Noted Allergy Reaction MELOXICAM 03/16/2013 8 - GI Upset NITROFURANTOIN 02/21/2019 14 - Other: See Comments Comments: Possible allergic reaction NORCO (HYDROCODONE-ACETAMINOPHEN) 02/21/2019 14 - Other: See Comments Comments: Possible allergic reaction PENICILLINS 08/02/2002 4 - Hives VIOXX (ROFECOXIB) 03/16/2013 8 - GI Upset Date Reviewed: 03/22/2024 Reviewed by: Wendi Olvera LPN - Fully Assessed Reason for Visit: Patient Question [7717] Prescriptions as of 06/15/2024 - omeprazole (PRILOSEC) 20 mg capsule Take one capsule twice daily - enalapril (VASOTEC) 2.5 mg tablet Take 1 tablet by mouth once daily. - ondansetron orally disintegrating (ZOFRAN ODT) 4 mg disintegrating tablet Take 1 tablet by mouth every 6 hours as needed for nausea/vomiting. - aspirin 81 mg chewable tablet Take 81 mg by mouth once daily. Taking Wed, Wed, and Wednesday - estradiol (ESTRACE) 0.01 % (0.1 mg/gram) vaginal cream Use 1 g vaginally two times a week. - levothyroxine (UNITHROID) 25 mcg tablet Take 1 tablet by mouth daily before breakfast. - albuterol HFA (VENTOLIN HFA) 90 mcg/actuation inhaler Inhale 2 Puffs as instructed every 4 hours as needed for wheezing/shortness of breath. - hydrocortisone (CORTEF) 10 mg tablet Take 10mg by mouth in AM AND 5mg at 12pm AND 5pm. - multivitamin tablet Take 1 tablet by mouth once daily. Taking Wed, Wed, and Wednesday. - denosumab (PROLIA) 60 mg/mL Inject 60 mg subcutaneously once every 6 months. - CYANOCOBALAMIN, VITAMIN B-12, ORAL Take by mouth. - Cholecalciferol, Vitamin D3, 1,000 unit cap Take 1 capsule by mouth once daily. - CALCIUM CARBONATE/VITAMIN D3 (CALCIUM 600 + D ORAL) Take 600 mg by mouth once daily. Problem List As Of Date 06/02/2024 Noted Resolved Senile Osteoporosis [M81.0] 03/10/2007 Esophageal Reflux [K21.9] 04/26/2007 Routine general medical examination at [facility]*04/22/2009 04/15/2016 Benign Neoplasm of Colon [D12.6] 04/22/2009 Acute Gastritis without Mention of Hemorrhage [*08/28/2009 Unspecified Erythematous Condition [L53.9] 09/04/2009 Allergic Urticaria [L50.0] 09/04/2009 Unspecified Urticaria [L50.9] 09/04/2009 Unspecified Pruritic Disorder [L29.9] 09/04/2009 Inflamed Seborrheic Keratosis [L82.0] 04/23/2010 Other Seborrheic Keratosis [L82.1] 04/23/2010 Open wound of leg with complication [S81.809A] 04/23/2010 09/23/2023 Hyperlipidemia [E78.5] 05/28/2010 Essential hypertension [I10] 09/16/2010 Angioma: tongue and other sites [D18.00] 07/07/2011 04/15/2016 Tongue discoloration: angioma and capillary marina*07/07/2011 04/15/2016 [place] angiomas [D18.01] 07/07/2011 04/15/2016 Solar Lentigines [L81.4] 07/07/2011 04/15/2016 Actinic skin damage [L57.8] 07/07/2011 04/15/2016 Melanocytic nevus of trunk: L lower chest [D22.*07/07/2011 04/15/2016 Skin tag [L91.8] 07/07/2011 04/15/2016 Cholecystitis [K81.9] 07/15/2011 10/10/2013 Disease of pituitary gland (HCC) [E23.7] 04/12/2023 Pituitary adenoma (HCC) [D35.2] 08/05/2011 Contact dermatitis and other eczema due to othe*10/07/2012 04/15/2016 Eczematous dermatitis [L30.9] 10/07/2012 04/15/2016 Xerosis cutis [L85.3] 10/07/2012 04/15/2016 Postinflammatory skin changes [R23.8] 10/07/2012 04/15/2016 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] 03/10/2013 Microhematuria [R31.29] 07/10/2014 Kidney stone [N20.0] 07/10/2014 Lower urinary tract symptoms (LUTS) [R39.9] 07/10/2014 Fibromyalgia [M79.7] 03/26/2015 Arthritis of carpometacarpal (CMC) joint of rig*10/03/2018 Stage 3a chronic kidney disease (HCC) [N18.31] 09/07/2022 Acute bilateral low back pain without sciatica *11/26/2020 01/23/2021 Hypothyroidism [E03.9] 09/22/2023 Fall at home [W19.XXXA, Y92.009] 06/01/2024 Fracture of ramus of right pubis with routine h*06/01/2024 Other fracture of unspecified thoracic vertebra*06/01/2024 Encounter Status:Closed by MCKENZIE LEWIS on 06/15/24 Normal [facility] [id number] 06-01-2024 [id number] HNO ID: [id number] Author: JG HOWARD PT, DPT Service: ? Author Type: Physical Therapist Type: [id number] Filed: 06/01/2024 11:16 Note Text: [facility] Physical Therapy Plan of Care Certification Patient Name: Dora Bryant : 1945 [facility] #: [id number] Date: 06/01/2024 To: Elan Garcia,* From Therapist: Jg Howard PT, DPT RE: Patient Certification/ Recertification Your review, approval and electronic signature are required in order to comply with Payor: [employer] MEDICARE / Plan: [employer] MEDICARE PPO / Product Type: PPO / regulations. The identified Physical Therapy PLAN OF CARE for the patient is as follows: W19.XXXD, Y92.009 Fall in home, subsequent encounter (primary encounter diagnosis) S22.008A Other fracture of unspecified thoracic vertebra, initial encounter for closed fracture (HCC) S32.591D Closed fracture of ramus of right pubis with routine healing, subsequent encounter PLAN OF CARE: Assessment: Dora Bryant presents with diagnosis of right hip pain with evidence of old pubic ramus fracture, upper back pain with evidence of thoracic compression fractures, as well as recent fall that interferes with standing, walking, lifting, physical activities, recreational activities, bending, cleaning, sleeping, carrying . She presents with impairments in ADL's, balance, gait, independence in exercise, overall function, posture, range of motion, strength, and symptom management. Patient did not complete the PROMIS? (Patient Reported Outcome Measures Information System). Prognosis for therapy is Good due to: current objective clinical presentation . She will benefit from skilled therapy services to meet the goals established for this plan of care as noted below. Assessment Fall Risk : Active at risk Goals for Episode of Care: created on 06/01/24 through 07/27/24 Loving in home exercise program. Patient will decrease pain rating by 2 points to meet minimal clinical important difference for numeric pain rating scale. Patient will demonstrate increase in RLE strength to at least 4+/5 during manual muscle testing in order to improve function for prior functional tasks. Perform ADL's and lifting activities with good mechanics and decreased report of symptoms/pain in 8 weeks. Improve postural awareness. Patient will report no falls. Improve performance on 4 Stage Balance Test to SL balance >10 seconds bilaterally to reflect decreased fall risk. Patient Goals: Get specific exercises to help hips and back Planned Interventions, Frequency, and Duration: Current Frequency: 1x/week (per patient availability) Duration: 8 weeks Total Number of Visits Planned: 8 Planned Treatment Interventions: Therapeutic exercise (73273), Neuromuscular re-education (29053), Manual therapy (20153), Therapeutic activities (77204), Self-penitentiary management (96197), Gait Training (46052), Body Mechanics Training PLAN FOR NEXT VISIT: Assess response to HEP. Postural strengthening, LE strengthening, balance Patient demonstrates good understanding of plan of care and treatment. The above goals and plan of care were discussed and agreed upon by patient/family. For further details regarding this patient refer to the Physical Therapy electronically documented visit dated 06/01/2024. Provider Attestation I have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 morphologyOrdered By: Aidee Harris on 04-01-2023 RBC morphology finding Nom (Bld) N CHROM NORMAL NORM C&C [facility] Serum or plasma calcium hayden urement (mass/volume)Ordered By: Violeta Harris on 04-01-2023 Calcium [Mass/Vol] 8.8 mg/dL 8.5-10.1 [facility] Serum or plasma creatinine m easurement (mass/volume)Ordered By: Violeta Harris on 04-01-2023 Creatinine [Mass/Vol] 1.03 mg/dL 0.55-1.02 [facility] Comment on above: The validity of the calculated GFR & GFRAA in patients over 70 years has not been determined. Clinical correlation is essential. Serum or plasma urea nitroge n measurement (mass/volume)Ordered By: Violeta Harris on 04-01-2023 Urea nitrogen [Mass/Vol] 18 mg/dL 7-18 [facility] Thin prep Papanicolaou smear with manual screeningOrdered By: Violeta Harris on 04-01-2023 Thin prep Papanicolaou smear with manual screening 10 5-15 [facility] XR Chest PA and Lateralon IMPRESSION: No acute radiographic abnormality. Prescription Eyeglass Maker: [email or web address] Transcribe Date/Time: Oct 21 2022 3:15P Dictated by : WINIFRED SAMAYOA MD This examination was interpreted and the report reviewed and electronically signed by: WINIFRED SAMAYOA MD on Oct 21 2022 3:16PM [facility] DIVISION OF RADIOLOGY * * *Final Report* * * DATE OF EXAM: Oct 21 2022 9:35AM WOX 5291 - XR CHEST 2V FRONTAL/LAT / PROCEDURE REASON: Expiratory wheezing * * * * Physician Interpretation * * * * EXAMINATION: CHEST RADIOGRAPH (2 VIEW FRONTAL & LATERAL) CLINICAL HISTORY: Expiratory wheezing MQ: XC2_6 EXAM DATE/TIME: 10/21/2022 9:35 AM COMPARISON: 06/01/2022 RESULT: Lines, tubes, and devices: None. Lungs and pleura: No consolidation. No lung mass. No pleural effusion. No pneumothorax. Cardiomediastinal silhouette: Normal cardiomediastinal silhouette. Bones and soft tissues: Unremarkable. DIVISION OF RADIOLOGY Provider, [facility] - 10/21/2022 * * *Final Report* * * DATE OF EXAM: Oct 21 2022 9:35AM WOX 5291 - XR CHEST 2V FRONTAL/LAT / PROCEDURE REASON: Expiratory wheezing * * * * Physician Interpretation * * * * EXAMINATION: CHEST RADIOGRAPH (2 VIEW FRONTAL & LATERAL) CLINICAL HISTORY: Expiratory wheezing MQ: XC2_6 EXAM DATE/TIME: 10/21/2022 9:35 AM COMPARISON: 06/01/2022 RESULT: Lines, tubes, and devices: None. Lungs and pleura: No consolidation. No lung mass. No pleural effusion. No pneumothorax. Cardiomediastinal silhouette: Normal cardiomediastinal silhouette. Bones and soft tissues: Unremarkable. IMPRESSION IMPRESSION: No acute radiographic abnormality. Prescription Eyeglass Maker: [email or web address] Transcribe Date/Time: Oct 21 2022 3:15P Dictated by : WINIFRED SAMAYOA MD This examination was interpreted and the report reviewed and electronically signed by: WINIFRED SAMAYOA MD on Oct 21 2022 3:16PM EST [facility] Radiology Study observation (narrative) [facility] XR Chest PA and LateralOrder ed By: [facility] Provider on 10-21-2022 [facility] No Panel Informationon 07-17 IMPRESSION: No acute bony finding. Prescription Eyeglass Maker: [email or web address] Transcribe Date/Time: Jul 17 2022 1:07P Dictated by : LYLA LOVE MD This examination was interpreted and the report reviewed and electronically signed by: LYLA LOVE MD on Jul 17 2022 1:19PM EST DIVISION OF RADIOLOGY Radiology Study observation (narrative) [facility] No Panel InformationOrdered By: [facility] Provider on 07-17-2022 [facility] XR Hand - right PA and Later al and Obliqueon 07-17-2022 * * *Final Report* * * DATE OF EXAM: Jul 17 2022 8:31AM WOX 5346 - XR HAND 3V PA/LAT/OBL RT / PROCEDURE REASON: multiple diagnoses * * * * Physician Interpretation * * * * Right hand and wrist HISTORY: 77 years old Clinical information: Wrist pain, right Hand pain, right fell 5 weeks ago, was seen in ED and no fx, still has pain radial side that radiates into MC's of hand dorsal side TECHNIQUE: Images: XR WRIST 3V PA/LAT/OBL RT, XR HAND 3V PA/LAT/OBL RT Comparison: None. RESULT: Findings: No acute fracture or dislocation is evident. Status post resection trapezium. Residual ossifications at the operative site. Joint spaces otherwise maintained. DIVISION OF RADIOLOGY Provider, [facility] - 07/17/2022 * * *Final Report* * * DATE OF EXAM: Jul 17 2022 8:31AM WOX 5346 - XR HAND 3V PA/LAT/OBL RT / PROCEDURE REASON: multiple diagnoses * * * * Physician Interpretation * * * * Right hand and wrist HISTORY: 77 years old Clinical information: Wrist pain, right Hand pain, right fell 5 weeks ago, was seen in ED and no fx, still has pain radial side that radiates into MC's of hand dorsal side TECHNIQUE: Images: XR WRIST 3V PA/LAT/OBL RT, XR HAND 3V PA/LAT/OBL RT Comparison: None. RESULT: Findings: No acute fracture or dislocation is evident. Status post resection trapezium. Residual ossifications at the operative site. Joint spaces otherwise maintained. IMPRESSION IMPRESSION: No acute bony finding. Prescription Eyeglass Maker: [email or web address] Transcribe Date/Time: Jul 17 2022 1:07P Dictated by : LYLA LOVE MD This examination was interpreted and the report reviewed and electronically signed by: LYLA LOVE MD on Jul 17 2022 1:19PM [facility] XR Wrist - right PA and Late ral and Obliqueon 07-17-2022 * * *Final Report* * * DATE OF EXAM: Jul 17 2022 8:31AM WOX 5271 - XR WRIST 3V PA/LAT/OBL RT / PROCEDURE REASON: multiple diagnoses * * * * Physician Interpretation * * * * Right hand and wrist HISTORY: 77 years old Clinical information: Wrist pain, right Hand pain, right fell 5 weeks ago, was seen in ED and no fx, still has pain radial side that radiates into MC's of hand dorsal side TECHNIQUE: Images: XR WRIST 3V PA/LAT/OBL RT, XR HAND 3V PA/LAT/OBL RT Comparison: None. RESULT: Findings: No acute fracture or dislocation is evident. Status post resection trapezium. Residual ossifications at the operative site. Joint spaces otherwise maintained. DIVISION OF RADIOLOGY Provider, [facility] - 07/17/2022 * * *Final Report* * * DATE OF EXAM: Jul 17 2022 8:31AM WOX 5271 - XR WRIST 3V PA/LAT/OBL RT / PROCEDURE REASON: multiple diagnoses * * * * Physician Interpretation * * * * Right hand and wrist HISTORY: 77 years old Clinical information: Wrist pain, right Hand pain, right fell 5 weeks ago, was seen in ED and no fx, still has pain radial side that radiates into MC's of hand dorsal side TECHNIQUE: Images: XR WRIST 3V PA/LAT/OBL RT, XR HAND 3V PA/LAT/OBL RT Comparison: None. RESULT: Findings: No acute fracture or dislocation is evident. Status post resection trapezium. Residual ossifications at the operative site. Joint spaces otherwise maintained. IMPRESSION IMPRESSION: No acute bony finding. Prescription Eyeglass Maker: [email or web address] Transcribe Date/Time: Jul 17 2022 1:07P Dictated by : LYLA LOVE MD This examination was interpreted and the report reviewed and electronically signed by: LYLA LOVE MD on Jul 17 2022 1:19PM EST [facility] XR CHEST 2V FRONTAL/LATon [facility] XR Chest PA and Lateralon IMPRESSION: Stable chest. No acute cardiopulmonary process. Prescription Eyeglass Maker: [email or web address] Transcribe Date/Time: Jun 01 2022 11:45A Dictated by : LEISA HAMPTON MD This examination was interpreted and the report reviewed and electronically signed by: LEISA HAMPTON MD on Jun 01 2022 11:47AM EST [facility]_DO_NOT _USE_DIVIS ION OF RADIOLOGY * * *Final Report* * * DATE OF EXAM: Jun 01 2022 10:35AM WOX 5291 - XR CHEST 2V FRONTAL/LAT / PROCEDURE REASON: multiple diagnoses * * * * Physician Interpretation * * * * EXAMINATION: CHEST RADIOGRAPH (2 VIEW FRONTAL & LATERAL) CLINICAL HISTORY: Neutrophilia. Leukocytosis, unspecified type. MQ: XC2_6 EXAM DATE/TIME: 06/01/2022 10:35 AM COMPARISON: Comparison is made to prior chest radiograph dated 20 December 2020 and 10/29/2014 RESULT: Lines, tubes, and devices: None. Lungs [...] degenerative change. No bony destructive process noted. [facility]_DO_NOT _USE_DIVIS ION OF RADIOLOGY Provider, [facility] - 06/01/2022 * * *Final Report* * * DATE OF EXAM: Jun 01 2022 10:35AM WOX 5291 - XR CHEST 2V FRONTAL/LAT / PROCEDURE REASON: multiple diagnoses * * * * Physician Interpretation * * * * EXAMINATION: CHEST RADIOGRAPH (2 VIEW FRONTAL & LATERAL) CLINICAL HISTORY: Neutrophilia. Leukocytosis, unspecified type. MQ: XC2_6 EXAM DATE/TIME: 06/01/2022 10:35 AM COMPARISON: Comparison is made to prior chest radiograph dated 20 December 2020 and 10/29/2014 RESULT: Lines, tubes, and devices: None. Lungs [...] degenerative change. No bony destructive process noted. IMPRESSION IMPRESSION: Stable chest. No acute cardiopulmonary process. Prescription Eyeglass Maker: [email or web address] Transcribe Date/Time: Jun 01 2022 11:45A Dictated by : LEISA HAMPTON MD This examination was interpreted and the report reviewed and electronically signed by: LEISA HAMPTON MD on Jun 01 2022 11:47AM EST [facility] Radiology Study observation (narrative) [facility] XR Chest PA and LateralOrder ed By: [facility] Provider on 06-01-[address] [facility] [address] ABD/PEL WO IVCONon 2021 [facility] CBC W Auto Differential pane l (Bld)on 05-11-2022 Abs Immature Gran 0.07 k/uL <0.10 k/uL [facility] Basophils (Bld) [#/Vol] 0.06 10*3/uL <0.11 k/uL [facility] Basophils/100 WBC (Bld) 0.4 % [facility] Differential cell count method Nom (Bld) Auto [facility] Eosinophils (Bld) [#/Vol] 0.08 10*3/uL <0.46 k/uL [facility] Eosinophils/100 WBC (Bld) 0.6 % [facility] Erythrocyte distribution width (RBC) [Ratio] 14.2 % 11.5 - 15.0 % [facility] Hematocrit (Bld) [Volume fraction] 44.3 % 36.0 - 46.0 % [facility] Hemoglobin (Bld) [Mass/Vol] 14.4 g/dL 11.5 - 15.5 g/dL [facility] Immature Gran % 0.5 % [facility] Lymphocytes (Bld) [#/Vol] 2.51 10*3/uL 1.00 - 4.00 k/uL [facility] Lymphocytes/100 WBC (Bld) 18.7 % [facility] MCH (RBC) [Entitic mass] 31.2 pg 26.0 - 34.0 pg [facility] MCHC (RBC) [Mass/Vol] 32.5 g/dL 30.5 - 36.0 g/dL [facility] MCV (RBC) [Entitic vol] 96.1 fL 80.0 - 100.0 fL [facility] Monocytes (Bld) [#/Vol] 0.54 10*3/uL <0.87 k/uL [facility] Monocytes/100 WBC (Bld) 4.0 % [facility] Neutrophils (Bld) [#/Vol] 10.17 10*3/uL High 1.45 - 7.50 k/uL [facility] Neutrophils/100 WBC (Bld) 75.8 % [facility] Nucleated RBC (Bld) [#/Vol] 10*3/uL <0.01 k/uL [facility] Nucleated RBC/100 WBC (Bld) [Ratio] 0.0 /100 WBC [facility] Platelet mean volume (Bld) [Entitic vol] 10.6 fL 9.0 - 12.7 fL [facility] Platelets (Bld) [#/Vol] 288 10*3/uL 150 - 400 k/uL [facility] RBC (Bld) [#/Vol] 4.61 10*6/uL 3.90 - 5.2 0 m/uL [facility] WBC (Bld) [#/Vol] 13.43 10*3/uL High 3.70 - 11 .00 k/uL [facility] Absolute lymphocyte counton 04-30-2022 Lymphocytes Auto (Unsp spec) [#/Vol] 1.57 10*3/uL 0.83-4.51 [facility] Work Phone: Basophil percentageon 2021 Basophils/100 WBC (Bld) 0.4 % 0-1 [facility] Work Phone: Bilirubin [Mass/Vol] 0.40 mg/dL 0.20-1.00 [facility] Work Phone: Comment on above: For patients on eltr ombopag therapy, use of Dimension [place] TBIL is not recommended. Chloride [Moles/Vol] 110 mmol/L 98-107 [facility] Work Phone: Eosinophils/100 WBC (Bld) 0.7 % 0-5 [facility] Work Phone: Glucose [Mass/Vol] 84 mg/dL 74-106 [facility] Work Phone: Neutrophils (Bld) [#/Vol] 11.2 10*3/uL 2.0-7.7 [facility] Work Phone: Neutrophils/100 WBC (Bld) 81.1 % 47-70 [facility] Work Phone: Potassium [Moles/Vol] 4.2 mmol/L 3.5-5.1 [facility] Work Phone: Comment on above: Slight Hemolysis, Re sult may be falsely increased. Protein [Mass/Vol] 7.2 g/dL 6.4-8.2 [facility] Work Phone: Sodium [Moles/Vol] 140 mmol/L 136-145 [facility] Work Phone: WBC (Bld) [#/Vol] 13.8 10*3/uL 4.4-11.0 [facility] Work Phone: Blood erythrocytes count (nu mber/volume)on 04-30-2022 RBC (Bld) [#/Vol] 4.75 10*6/uL 4.2-5.4 [facility] Work Phone: Blood hemoglobin measurement (mass/volume)on 04-30-2022 Hemoglobin (Bld) [Mass/Vol] 14.9 g/dL 12.0-15.0 [facility] Work Phone: Blood lymphocytes/100 leukoc yteson 04-30-2022 Lymphocytes/100 WBC (Bld) 11.4 % 19-41 [facility] Work Phone: Blood monocytes/100 leukocyt eson 04-30-2022 Monocytes/100 WBC (Bld) 5.7 % 0-10 [facility] Work Phone: [phone] Blood platelet mean volumeon 04-30-2022 Platelet mean volume (Bld) [Entitic vol] 10.4 fL 6.2-12.0 [facility] Work Phone: [phone] Determination of erythrocyte mean corpuscular volume (MCV)on 04-30-2022 MCV (RBC) [Entitic vol] 95.2 fL 81-99 [facility] Work Phone: [phone] Hematocrit Auto (Bld) [Volum e fraction]on 04-30-2022 Hematocrit (Bld) [Volume fraction] 45.2 % 37-47 [facility] Work Phone: [phone] Laboratory - Chemistry and C hemistry - challengeon 04-30-2022 ALP [Catalytic activity/Vol] 104 U/L 45-117 [facility] Work Phone: [phone] ALT [Catalytic activity/Vol] 26 U/L 13-56 [facility] Work Phone: [phone] CO2 [Moles/Vol] 23.0 mmol/L 21.0-32.0 [facility] Work Phone: [phone] Free T4 [Mass/Vol] 0.85 ng/dL 0.76-1.46 [facility] Work Phone: [phone] Globulin (S) [Mass/Vol] 3.4 g/dL 2.2-4.2 [facility] Work Phone: [phone] Urea nitrogen/Creatinine [Mass ratio] 15.0 mg/mg 10-20 [facility] Work Phone: Laboratory - Hematology and Cell countson 04-30-2022 Erythrocyte distribution width (RBC) [Entitic vol] 48.4 fL 35.1-43.9 [facility] Work Phone: [phone] Erythrocyte distribution width (RBC) [Ratio] 13.7 % 11.6-14.6 [facility] Work Phone: [phone] Immature granulocytes/100 WBC (Bld) 0.700 % 0.0-0.9 [facility] Work Phone: Comment on above: IG% - Immature Granu locytes (promyelocytes, myelocytes and metamyelocytes) > 1% indicates that a LEFT SHIFT is Present. MCH (RBC) [Entitic mass] 31.4 pg 27.0-32.0 [facility] Work Phone: Nucleated RBC/100 WBC (Bld) [Ratio] 0 % 0-5 [facility] Work Phone: MCHC Auto (RBC) [Mass/Vol]on 04-30-2022 MCHC (RBC) [Mass/Vol] 33.0 g/dL 32-36 [facility] Work Phone: No Panel Informationon 04-30 Estimated GFR (MDRD) Amer 60 mL/min >60 [facility] Work Phone: Comment on above: GFR Calc Estimated GFR (MDRD) Non-Af Amer 50 mL/min >60 [facility] Work Phone: Comment on above: Non- GFR Calc Follicle Stimulating Hormone 1.1 mIU/mL [facility] Work Phone: Comment on above: NORMAL REFERENCE RAN GES FEMALE FOLLICULAR 2.3 - 12.6 mIU/mL MID-CYCLE PEAK 5.2 - 17.5 mIU/mL LUTEAL 1.7 - 12.9 mIU/mL POST-MENOPAUSAL ON MHT 5.9 - 72.8 mIU/mL NOT ON MHT 12.7 - 132.2 mlU/mL MALE 0.7 - 10.8 mIU/mL Free Triiodothyronine (T3) pg/dL 2.1 pg/mL 2.18-3.98 [facility] Work Phone: Luteinizing Hormone < 0.2 mIU/mL [facility]: Comment on above: NORMAL REFERENCE RAN GES FEMALE FOLLICULAR 1.9 - 26.2 mIU/mL MID-CYCLE PEAK 22.8 - 76.1 mIU/mL LUTEAL 0.6 - 16.6 mIU/mL POST-MENOPAUSAL ON MHT 1.1 - 52.4 mIU/mL NOT ON MHT 8.6 - 61.8 mIU/mL MALE 1.2 - 10.6 mIU/mL Somatomedin-C 54 ng/mL 48-191 [facility] Work Phone: Comment on above: Performed at: [address] [id number] Director: Crystal Keenan MD, Phone: [phone] Vitamin D 25-Hydroxy 92.8 ng/mL [facility] Work Phone: Comment on above: Vitamin D 25(OH) Sta tus Range Deficiency <20 ng/mL (50nmol/L) Insufficiency 20 - 30 ng/mL (50 - 75 nmol/L) Sufficiency 30 - 100 ng/mL (75 - 250 nmol/L) Toxicity >100 ng/mL (>250 nmol/L) Platelets bldon 04-30-2022 Platelets (Bld) [#/Vol] 296 10*3/uL 150-450 [facility] Work Phone: Serum or plasma albumin hayden urement (mass/volume)on 04-30-2022 Albumin [Mass/Vol] 3.8 g/dL 3.2-5.0 [facility] Work Phone: Serum or plasma albumin/glob ulin mass ratioon 04-30-2022 Albumin/Globulin [Mass ratio] 1.1 {ratio} 0.9-2.4 [facility] Work Phone: Serum or plasma calcium hayden urement (mass/volume)on 04-30-2022 Calcium [Mass/Vol] 8.9 mg/dL 8.5-10.1 [facility] Work Phone: Serum or plasma creatinine m easurement (mass/volume)on 04-30-2022 Creatinine [Mass/Vol] 1.13 mg/dL 0.55-1.02 [facility] Work Phone: Comment on above: The validity of the calculated GFR & GFRAA in patients over 70 years has not been determined. Clinical correlation is essential. Serum or plasma ferritin rosario surement (mass/volume)on 04-30-2022 Ferritin [Mass/Vol] 83 ng/mL 8-252 [facility] Work Phone: Serum or plasma urea nitroge n measurement (mass/volume)on 04-30-2022 Urea nitrogen [Mass/Vol] 17 mg/dL 7-18 [facility] Work Phone: Thin prep Papanicolaou smear with manual screeningon 04-30-2022 Thin prep Papanicolaou smear with manual screening 25 U/L 15-37 [facility] Work Phone: Comment on above: Slight Hemolysis, Re sult may be falsely increased. Thin prep Papanicolaou smear with manual screening 7 5-15 [facility] Work Phone: C-REACTIVE PROTEIN (CRP)on 0 03-21-2022 CRP [Mass/Vol] mg/L <0.9 mg/dL [facility] ESR Westergren method (Bld) [Velocity]on 03-20-2022 ESR (Bld) [Velocity] 12 mm/h 0 - 20 mm/hr [facility] No Panel Informationon 03-20 [facility] Radiology Study observation (narrative) [facility] XR HIP BILATERAL 5V PEL/AP/L AT EACH HIPon 03-20-2022 IMPRESSION: 1. No acute bony process. 2. Degenerative changes as detailed in report. Prescription Eyeglass Maker: JODY Transcribe Date/Time: Mar 20 2022 3:56P Dictated by : LEISA HAMPTON MD This examination was interpreted and the report reviewed and electronically signed by: LEISA HAMPTON MD on Mar 20 2022 3:58PM EST ZZZ_DO_NOT _USE_DIVIS ION OF RADIOLOGY * * *Final Report* * * DATE OF EXAM: Mar 20 2022 3:02PM WOX [id number] - XR HIP DORIAN 5V PEL+ AP/LAT EA HIP / PROCEDURE REASON: multiple diagnoses * * * * Physician Interpretation * * * * EXAMINATION: XR HIP DORIAN 5V PEL+ AP/LAT EA HIP HISTORY: Chronic pain of both hips . TECHNIQUE: XR HIP DORIAN 5V PEL+ AP/LAT EA HIP Laterality: BILATERAL Number of different views (projections): 5 M: XB_1 COMPARISON: Comparison is made to prior hip study dated 10 October 2018 RESULT: Supine radiograph of the pelvis as well as AP and frogleg views of the bilateral hips demonstrate the visualized bony pelvic ring intact with mild enthesophyte formation. Healed fracture deformity of the right inferior pubic ramus is unchanged. The hips are bilaterally symmetric with minimal degenerative change manifest predominantly as superior joint space narrowing. There is no acute bony process. The soft tissues are unremarkable. ZZZ_DO_NOT _USE_DIVIS ION OF RADIOLOGY Provider, Rylee jackson [place] - 03/20/2022 * * *Final Report* * * DATE OF EXAM: Mar 20 2022 3:02PM WOX 5353 - XR HIP DORIAN 5V PEL+ AP/LAT EA HIP / PROCEDURE REASON: multiple diagnoses * * * * Physician Interpretation * * * * EXAMINATION: XR HIP DORIAN 5V PEL+ AP/LAT EA HIP HISTORY: Chronic pain of both hips . TECHNIQUE: XR HIP DORIAN 5V PEL+ AP/LAT EA HIP Laterality: BILATERAL Number of different views (projections): 5 M: XB_1 COMPARISON: Comparison is made to prior hip study dated 10 October 2018 RESULT: Supine radiograph of the pelvis as well as AP and frogleg views of the bilateral hips demonstrate the visualized bony pelvic ring intact with mild enthesophyte formation. Healed fracture deformity of the right inferior pubic ramus is unchanged. The hips are bilaterally symmetric with minimal degenerative change manifest predominantly as superior joint space narrowing. There is no acute bony process. The soft tissues are unremarkable. IMPRESSION IMPRESSION: 1. No acute bony process. 2. Degenerative changes as detailed in report. Prescription Eyeglass Maker: JODY Transcribe Date/Time: Mar 20 2022 3:56P Dictated by : LEISA HAMPTON MD This examination was interpreted and the report reviewed and electronically signed by: LEISA HAMPTON MD on Mar 20 2022 3:58PM [facility] XR Lumbar spine 3 Viewson IMPRESSION: Mild scoliotic curvature and stable degenerative changes. Stable anterolisthesis of L5 on S1 without associated pars interarticularis defect. Prescription Eyeglass Maker: JODY Transcribe Date/Time: Mar 20 2022 3:52P Dictated by : LEISA HAMPTON MD This examination was interpreted and the report reviewed and electronically signed by: LEISA HAMPTON MD on Mar 20 2022 3:56PM EST ZZZ_DO_NOT _USE_DIVIS ION OF RADIOLOGY * * *Final Report* * * DATE OF EXAM: Mar 20 2022 3:02PM WOX [id number] - XR LUMBAR 3V AP/LAT/L5-S1 / PROCEDURE REASON: multiple diagnoses * * * * Physician Interpretation * * * * EXAMINATION: XR LUMBAR 3V AP/LAT/L5-S1 HISTORY: Chronic bilateral low back pain without sciatica TECHNIQUE: XR LUMBAR 3V AP/LAT/L5-S1 Laterality: NOT APPLICABLE Number of different views (projections): 3 M: XB_1 COMPARISON: Comparison is made to prior lumbar spine dated 19 November 2020 RESULT: Counting reference: Lumbosacral junction. For the purposes of this report, L5-S1 is considered the last lumbar-type disc space and L4-5 is considered the level of the iliac crest. 3 Views of the lumbosacral spine with AP, lateral and cone-down radiographs demonstrate mild scoliotic curvature and multilevel degenerative change with vertebral body osteophytosis. There is intervertebral disc space narrowing at L5-S1 levels. There is hypertrophic facet change at lower 3 levels. There is a stable grade 1 anterior spondylolisthesis of L5 with respect to S1. There is no associated pars interarticularis defect and the findings are likely degenerative in etiology. There are no compression fractures and alignment is otherwise well maintained. The soft tissues are demonstrated a ovoid 11 x 6 mm radiodensity in the left mid abdomen which could be ingested pill. ZZZ_DO_NOT _USE_DIVIS ION OF RADIOLOGY Provider, [facility] Farhan [facility] - 03/20/2022 * * *Final Report* * * DATE OF EXAM: Mar 20 2022 3:02PM WOX 5228 - XR LUMBAR 3V AP/LAT/L5-S1 / PROCEDURE REASON: multiple diagnoses * * * * Physician Interpretation * * * * EXAMINATION: XR LUMBAR 3V AP/LAT/L5-S1 HISTORY: Chronic bilateral low back pain without sciatica TECHNIQUE: XR LUMBAR 3V AP/LAT/L5-S1 Laterality: NOT APPLICABLE Number of different views (projections): 3 M: XB_1 COMPARISON: Comparison is made to prior lumbar spine dated 19 November 2020 RESULT: Counting reference: Lumbosacral junction. For the purposes of this report, L5-S1 is considered the last lumbar-type disc space and L4-5 is considered the level of the iliac crest. 3 Views of the lumbosacral spine with AP, lateral and cone-down radiographs demonstrate mild scoliotic curvature and multilevel degenerative change with vertebral body osteophytosis. There is intervertebral disc space narrowing at L5-S1 levels. There is hypertrophic facet change at lower 3 levels. There is a stable grade 1 anterior spondylolisthesis of L5 with respect to S1. There is no associated pars interarticularis defect and the findings are likely degenerative in etiology. There are no compression fractures and alignment is otherwise well maintained. The soft tissues are demonstrated a ovoid 11 x 6 mm radiodensity in the left mid abdomen which could be ingested pill. IMPRESSION IMPRESSION: Mild scoliotic curvature and stable degenerative changes. Stable anterolisthesis of L5 on S1 without associated pars interarticularis defect. Prescription Eyeglass Maker: [facility] Transcribe Date/Time: Mar 20 2022 3:52P Dictated by : LEISA HAMPTON MD This examination was interpreted and the report reviewed and electronically signed by: LEISA HAMPTON MD on Mar 20 2022 3:56PM [facility] XR Foot - left AP and Latera l and obliqueon 05-30-2021 IMPRESSION: Postsurgical change. No complication. Prescription Eyeglass Maker: [facility] Transcribe Date/Time: May 30 2021 11:27A Dictated by : MILES KEYES MD This examination was interpreted and the report reviewed and electronically signed by: MILES KEYES MD on May 30 2021 11:28AM [facility] DIVISION OF RADIOLOGY * * *Final Report* * * DATE OF EXAM: May 30 2021 8:42AM WOX 5336 - XR FOOT 3V AP/LAT/OBL LT / PROCEDURE REASON: Foot pain, left * * * * Physician Interpretation * * * * Left foot radiographs HISTORY: 76 years old Clinical information: Foot pain, left Left lateral forefoot pain at the base of the 5th metatarsal x 4-5 months without injury TECHNIQUE: Images: XR FOOT 3V AP/LAT/OBL LT Comparison: 04/27/2019. RESULT: Findings: Prior hallux valgus surgery. No fracture or dislocation. No soft tissue abnormality identified. DIVISION OF RADIOLOGY Provider, [facility] [place] - 05/30/2021 * * *Final Report* * * DATE OF EXAM: May 30 2021 8:42AM WOX 5336 - XR FOOT 3V AP/LAT/OBL LT / PROCEDURE REASON: Foot pain, left * * * * Physician Interpretation * * * * Left foot radiographs HISTORY: 76 years old Clinical information: Foot pain, left Left lateral forefoot pain at the base of the 5th metatarsal x 4-5 months without injury TECHNIQUE: Images: XR FOOT 3V AP/LAT/OBL LT Comparison: 04/27/2019. RESULT: Findings: Prior hallux valgus surgery. No fracture or dislocation. No soft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 Respiratory rate 16 /min Elan Garcia MD Work Phone: [facility] 07-17-2022 08:03-0400 SaO2% (BldA) [Mass fraction] 99 % Elan Garcia MD Work Phone: [facility] 07-17-2022 08:03-0400 Systolic blood pressure 114 mm[Hg] Elan Garcia MD Work Phone: [facility] 06-22-2022 11:30-0400 Body temperature 97.5 [degF] Edna Podlogar 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 Work Phone: [facility] 06-22-2022 11:30-0400 Body weight 60.24 kg Edna Podlogar 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 Work Phone: [facility] 06-22-2022 11:30-0400 Diastolic blood pressure 74 mm[Hg] Edna Podlogar 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 Work Phone: [facility] 06-22-2022 11:30-0400 Heart rate 71 /min Edna Podlogar 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 Work Phone: [facility] 06-22-2022 11:30-0400 Respiratory rate 18 /min Edna Podlogar 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 Work Phone: [facility] 06-22-2022 11:30-0400 SaO2% (BldA) [Mass fraction] 98 % Edna Podlogar 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 Work Phone: [facility] 06-22-2022 11:30-0400 Systolic blood pressure 122 mm[Hg] Edna Podlogar 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 Work Phone: [facility] 06-15-2022 13:39-0400 Body height 147.3 cm Mitul Sánchez DO Work Phone: [facility] 06-15-2022 13:39-0400 Body temperature 98.49 [degF] Mitul Newelli DO Work Phone: [facility] 06-15-2022 13:39-0400 Body weight 60.33 kg Mitul Sánchez DO Work Phone: [facility] 06-15-2022 13:39-0400 Diastolic blood pressure 77 mm[Hg] Mitul Newelli DO Work Phone: [facility] 06-15-2022 13:39-0400 Heart rate 85 /min Mitul Newelli DO Work Phone: [facility] 06-15-2022 13:39-0400 Systolic blood pressure 131 mm[Hg] Mitul Newelli DO Work Phone: [facility] 06-03-2022 09:27-0400 Body temperature 97.81 [degF] Elan Garcia MD Work Phone: [facility] 06-03-2022 09:27-0400 Body weight 59.42 kg Elan Garcia MD Work Phone: [facility] 06-03-2022 09:27-0400 Diastolic blood pressure 76 mm[Hg] Elan Garcia MD Work Phone: [facility] 06-03-2022 09:27-0400 Heart rate 64 /min Elan Garcia MD Work Phone: [facility] 06-03-2022 09:27-0400 Respiratory rate 16 /min Elan Garcia MD Work Phone: [facility] 06-03-2022 09:27-0400 Systolic blood pressure 112 mm[Hg] Elan Garcia MD Work Phone: [facility] 05-12-2022 13:14-0400 Body height 149.[address] Kasey Bashir Work Phone: [facility] Work Phone: 05-12-2022 13:14-0400 Body mass index (BMI) [Ratio] 26.6 kg/m2 Dr. Kasey Bashir Work Phone: [facility] Work Phone: 05-12-2022 13:14-0400 Body temperature 96.7 [degF] Dr. Kasey Bashir Work Phone: [facility] Work Phone: 05-12-2022 13:14-0400 Body weight 59.[address] Kasey Bashir Work Phone: [facility] Work Phone: 05-12-2022 13:14-0400 Diastolic blood pressure 70 mm[Hg] Dr. Kasey Bashir Work Phone: [facility] Work Phone: 05-12-2022 13:14-0400 Heart rate 83 /min Dr. Kasey Bashir Work Phone: [facility] Work Phone: 05-12-2022 13:14-0400 Respiratory rate 12 /min Dr. Kasey Bashir Work Phone: [facility] Work Phone: 05-12-2022 13:14-0400 SaO2% (BldA) [Mass fraction] 98 % Dr. Kasey Bashir Work Phone: [facility] Work Phone: 05-12-2022 13:14-0400 Systolic blood pressure 124 mm[Hg] Dr. Kasey Bashir Work Phone: [facility] Work Phone: 05-11-2022 14:11-0400 Body temperature 98.01 [degF] Elan Garcia MD Work Phone: [facility] 05-11-2022 14:11-0400 Body weight 59.97 kg Elan Garcia MD Work Phone: [facility] 05-11-2022 14:11-0400 Diastolic blood pressure 80 mm[Hg] Elan Garcia MD Work Phone: [facility] 05-11-2022 14:11-0400 Heart rate 76 /min Elan Garcia MD Work Phone: [facility] 05-11-2022 14:11-0400 Respiratory rate 16 /min Elan Garcia MD Work Phone: [facility] 05-11-2022 14:11-0400 SaO2% (BldA) [Mass fraction] 99 % Elan Garcia MD Work Phone: [facility] 05-11-2022 14:11-0400 Systolic blood pressure 122 mm[Hg] Elan Garcia MD Work Phone: [facility] 04-30-2022 09:33-0400 Body temperature 97.4 [degF] Dr. Kasey Bashir Work Phone: [facility] Work Phone: 04-30-2022 09:33-0400 Diastolic blood pressure 76 mm[Hg] Dr. Kasey Bashir Work Phone: [facility] Work Phone: 04-30-2022 09:33-0400 Heart rate 77 /min Dr. Kasey Bashir Work Phone: [facility] Work Phone: 04-30-2022 09:33-0400 Respiratory rate 14 /min Dr. Kasey Bashir Work Phone: [facility] Work Phone: 04-30-2022 09:33-0400 SaO2% (BldA) [Mass fraction] 98 % Dr. Kasey Bashir Work Phone: [facility] Work Phone: 04-30-2022 09:33-0400 Systolic blood pressure 128 mm[Hg] Dr. Kasey Bashir Work Phone: [facility] Work Phone: 04-13-2022 13:44-0400 Body temperature 98.01 [degF] Edna Loco APRN.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 Work Phone: [facility] 04-13-2022 13:44-0400 Body weight 60.96 kg Edna Loco APRN.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 Work Phone: [facility] 04-13-2022 13:44-0400 Diastolic blood pressure 62 mm[Hg] Edna Podlogar 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 Work Phone: [facility] 04-13-2022 13:44-0400 Heart rate 85 /min Edna Podlogar 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 Work Phone: [facility] 04-13-2022 13:44-0400 Respiratory rate 18 /min Edna Podlogar 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 Work Phone: [facility] 04-13-2022 13:44-0400 SaO2% (BldA) [Mass fraction] 100 % Edna Podlogar 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 Work Phone: [facility] 04-13-2022 13:44-0400 Systolic blood pressure 108 mm[Hg] Edna Podlogar 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 Work Phone: [facility] 03-20-2022 14:09-0400 Body weight 61.33 kg Elan Garcia MD Work Phone: [facility] 03-20-2022 14:09-0400 Diastolic blood pressure 68 mm[Hg] Elan Garcia MD Work Phone: [facility] 03-20-2022 14:09-0400 Heart rate 85 /min Elan Garcia MD Work Phone: [facility] 03-20-2022 14:09-0400 Respiratory rate 16 /min Elan Garcia MD Work Phone: [facility] 03-20-2022 14:09-0400 SaO2% (BldA) [Mass fraction] 97 % Elan Garcia MD Work Phone: [facility] 03-20-2022 14:09-0400 Systolic blood pressure 128 mm[Hg] Elan Garcia MD Work Phone: [facility] 04-24-2021 09:30-0400 Body mass index (BMI) [Ratio] 25.6 kg/m2 Dr. Kasey Bashir Work Phone: [facility] Work Phone: Encounters Encounter Date Encounter Type Care Provider Facility Start: 06-02-2025 ambulatory [facility] Facility:[facility] Start: 05-21-2025 End: 05-21-[address] Pastor Garcia MD Work Phone: -Radiology [facility] Start: 05-21-2025 End: 05-21-[address] Yon Salas MD -Radiology [facility] Work Phone: Start: 05-21-2025 End: 05-21-2025 ambulatory [facility] Facility:[facility] Start: 05-18-2025 End: 05-18-[address] Lei Sung MD -[facility] Work Phone: Start: 05-18-2025 End: 05-18-[address] Pastor Garcia MD Work Phone: -[facility] Start: 01-11-2025 End: 01-11-2025 ambulatory [facility] Facility:[facility] Start: 12-12-2024 End: 12-13-2024 Telephone encounter Elan Garcia MD Work Phone: [facility] Comment on above: Patient Question Start: 11-20-2024 End: 11-20-2024 Telephone encounter Elan Garcia MD Work Phone: [facility] Comment on above: Medication Question Start: 11-17-2024 End: 11-17-2024 ambulatory Pastor Garcia Facility:[facility] Start: 11-13-2024 End: 11-13-2024 ambulatory Connor Louieo [facility] Start: 11-13-2024 End: 11-13-2024 Patient encounter procedure Connor L Plaso [facility] Comment on above: Population Health Na vigation Outreach ([employer] AWV Initiative) Start: 10-27-2024 End: 10-27-2024 Patient encounter procedure Edna Loco APRN.CNP Work Phone: [facility] Comment on above: Essential hypertensi on (Primary Dx); Stage 3a chronic kidney disease (HCC); Gastroesophageal reflux disease without esophagitis; Acquired hypothyroidism; Hypopituitarism (HCC) Start: 10-27-2024 End: 10-27-2024 ambulatory ELAN GARCIA Facility:[facility] Start: 09-26-2024 End: 09-27-2024 Telephone encounter Adeline Butler APRN.CNP Work Phone: [facility] [place] Comment on above: Results Start: 09-25-2024 End: 09-25-2024 Patient encounter procedure Adeline Butler APRN.CNP Work Phone: [facility] [place] Comment on above: Acute left-sided low back pain with left-sided sciatica (Primary Dx); Lower abdominal tenderness Start: 09-25-2024 End: 09-25-2024 ambulatory ELAN GARCIA Facility:[facility] Start: 09-22-2024 End: 09-22-2024 Patient encounter procedure Elan Garcia MD Work Phone: [facility] [place] Comment on above: Acute bilateral low back pain with right-sided sciatica (Primary Dx); Essential hypertension; Mixed hyperlipidemia; Stage 3a chronic kidney disease (HCC) Start: 09-22-2024 End: 09-22-2024 ambulatory ELAN GARCIA Facility:[facility] Start: 08-23-2024 End: 08-23-2024 Refill Elan Garcia MD Work Phone: [facility] [place] Comment on above: Refill Request Start: 08-03-2024 End: 08-03-2024 Telephone encounter Sally Singh APRN.CNP Work Phone: [facility] [place] Comment on above: Results Start: 08-03-2024 End: 08-03-2024 ambulatory ELAN GARCIA Facility:[facility] Start: 08-03-2024 End: 08-03-2024 Subsequent hospital visit by physician [facility] Work Phone: Radiology Comment on above: Pain in right lower leg [M79.661] Start: 07-31-2024 End: 07-31-2024 Patient encounter procedure Edna Loco APRN.CNP Work Phone: [facility] Comment on above: Pain in right lower leg (Primary Dx) Start: 07-31-2024 End: 07-31-2024 ambulatory ELAN GARCIA Facility:[facility] Start: 06-23-2024 End: 06-23-2024 ambulatory Catherine Valles PT [place] [facility] Physical [facility] Comment on above: Fall in home, initia l encounter (Primary Dx); Closed fracture of ramus of right pubis with routine healing, subsequent encounter Start: 06-22-2024 End: 06-22-2024 ambulatory ELAN GARCIA Facility:[facility] Start: 06-22-2024 End: 06-22-2024 Patient encounter procedure Elan Garcia MD Work Phone: [facility] Comment on above: Fall in home, subseq uent encounter (Primary Dx); Closed fracture of ramus of right pubis with routine healing, subsequent encounter; Other fracture of unspecified thoracic vertebra, initial encounter for closed fracture (HCC); Stage 3a chronic kidney disease (HCC) Start: 06-13-2024 End: 06-13-2024 ambulatory Barbara Ahumada [employer]YROLL AUDITOR Work Phone: [facility] Comment on above: Fall in home, initia l encounter (Primary Dx); Closed fracture of ramus of right pubis with routine healing, subsequent encounter Start: 06-02-2024 Telephone encounter Jg Pina PT, DPT [facility] Comment on above: Patient Question Start: 06-01-2024 End: 06-01-2024 ambulatory Jg Howard PT, DPT [facility] Comment on above: Fall in home, subseq uent encounter (Primary Dx); Other fracture of unspecified thoracic vertebra, initial encounter for closed fracture (HCC); Closed fracture of ramus of right pubis with routine healing, subsequent encounter Start: 05-24-2024 End: 05-24-2024 ambulatory ELAN GARCIA Facility:[facility] Start: 05-24-2024 End: 05-24-2024 Subsequent hospital visit by physician Janna Fhsulaiman Odonnell Work Phone: Radiology Comment on above: Fall in home, subseq uent encounter [W19.XXXD, Y92.009] Start: 05-13-2024 End: 05-13-2024 ambulatory ELAN GARCIA Facility:[facility] Start: 05-13-2024 End: 05-13-2024 Patient encounter procedure Elan Garcia MD Work Phone: [facility] [place] Comment on above: Fall in home, subseq uent encounter (Primary Dx); Other fracture of unspecified thoracic vertebra, initial encounter for closed fracture (HCC); Closed fracture of ramus of right pubis with routine healing, subsequent encounter Start: 04-26-2024 Refill Elan Garcia MD Work Phone: [facility] [place] Comment on above: Refill Request Start: 03-22-2024 End: 03-22-2024 ambulatory ELAN GARCIA Facility:[facility] Start: 03-22-2024 End: 03-22-2024 Patient encounter procedure Edna Loco APRN.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 Work Phone: [facility] [place] Comment on above: Essential hypertensi on (Primary Dx); Disease of pituitary gland (HCC); Pituitary adenoma (HCC); Stage 3a chronic kidney disease (HCC); Acquired hypothyroidism; Mixed hyperlipidemia; Hypopituitarism (HCC); Screening for depression; Gastroesophageal reflux disease without esophagitis Start: 02-28-2024 End: 02-28-2024 ambulatory ELAN GARCIA Facility:[facility] Start: 02-28-2024 End: 02-28-2024 Patient encounter procedure Edna Loco APRN.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 Work Phone: [facility] [place] Comment on above: Upper respiratory tr act infection, unspecified type (Primary Dx) Start: 02-23-2024 Refill Elan Garcia MD Work Phone: [facility] [place] Comment on above: Refill Request Start: 02-02-2024 End: 02-02-2024 Patient encounter procedure Edna Loco APRN.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 Work Phone: [facility] [place] Comment on above: Daron infection (P rimary Dx) Start: 02-02-2024 End: 02-02-2024 ambulatory ELAN GARCIA Facility:[facility] Start: 01-31-2024 Telephone encounter Pastor Garcia MD Work Phone: [facility] Comment on above: rectal issue Start: 01-29-2024 End: 01-29-2024 Patient encounter procedure Elan Garcia MD Work Phone: [facility] Comment on above: Colitis (Primary Dx) ; Allergic reaction to contrast material, initial encounter; Stage 3a chronic kidney disease (HCC) Start: 01-29-2024 End: 01-29-2024 ambulatory ELAN GARCIA Facility:[facility] Start: 01-24-2024 Telephone encounter Pastor Garcia MD Work Phone: [facility] [place] Comment on above: ER F/U; Nausea Start: 01-22-2024 End: 01-23-2024 Emergency department patient [facility] Dr. Pastor Garcia [facility]: Start: 01-11-2024 End: 01-11-[address] 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 (Primary Dx); Pain in zurita, right Start: 01-05-2024 End: 01-05-2024 ambulatory ELAN GARCIA Facility:[facility] Start: 01-04-2024 ambulatory Elan Garcia MD Work Phone: [facility] Comment on above: Leg Pain Start: 12-01-2023 End: 12-01-2023 Subsequent hospital visit by physician Xr [facility] Work Phone: Radiology Comment on above: Rib pain on right si de [R07.81] Start: 11-19-2023 End: 11-19-2023 ambulatory [facility] Work Phone: Start: 11-19-2023 End: 11-19-2023 Patient encounter procedure [facility] Work Phone: Start: 10-08-2023 Telephone encounter Pastor Garcia MD Work Phone: [facility] Comment on above: medication replaceme nt request Start: 08-09-2023 Telephone encounter Edna barraza 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 Work Phone: [facility] Comment on above: Results Start: 08-03-2023 End: 08-03-2023 Patient encounter procedure Edna Loco APRN.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 Work Phone: [facility] Comment on above: Vaginal discharge (P rimary Dx); Vaginal itching Start: 07-21-2023 End: 07-21-[address] Pastor Garcia Work Phone: [facility] Work Phone: Start: 07-21-2023 End: 07-21-[address] Pastor Garcia Work Phone: [facility] Work Phone: Start: 05-21-2023 End: 05-21-[address] Pastor Garcia Work Phone: [facility] Work Phone: Start: 05-21-2023 End: 05-21-[address] Pastor Garcia Work Phone: [facility] Work Phone: Start: 05-20-2023 End: 05-20-[address] Pastor Garcia Work Phone: [facility] Work Phone: Start: 05-20-2023 End: 05-20-[address] Pastor Garcia Work Phone: [facility] Work Phone: Start: 05-07-2023 End: 05-07-2023 Patient encounter procedure Brian Ashton MD Work Phone: [facility] Comment on above: Pituitary adenoma (H CC) (Primary Dx) Start: 04-02-2023 Non-patient / Non-visit Dr. Camilo Garcia Work Phone: [facility] Start: 04-02-2023 Non-patient / Non-visit Dr. Camilo Garcia Work Phone: [facility] Start: 04-01-2023 End: 04-02-2023 Evaluation and management of inpatient Dr. Pastor Garcia Work Phone: [facility] Start: 04-01-2023 End: 04-02-[address] Pastor Garcia Work Phone: [facility] Work Phone: Start: 04-01-2023 Non-patient / Non-visit Dr. Camilo Garcia Work Phone: [facility] Start: 03-16-2023 ambulatory [facility] Comment on above: Results Start: 03-16-2023 E-mail encounter fro m caregiver [facility] Start: 03-08-2023 End: 03-08-2023 Patient encounter procedure Edna Loco APRN.CNP Work Phone: [facility] Comment on above: Essential hypertensi on (Primary Dx); Hypopituitarism (HCC); Glucocorticoid deficiency (HCC); Senile osteoporosis Start: 02-24-2023 Refill Elan Garcia MD Work Phone: [facility] Comment on above: Refill Request Start: 11-10-2022 End: 11-10-2022 ambulatory [facility] Work Phone: Start: 11-10-2022 End: 11-10-2022 Patient encounter procedure [facility] Start: 10-21-2022 Telephone encounter Edna barraza APRN.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 Work Phone: [facility] Comment on above: Results Start: 10-21-2022 End: 10-21-2022 Subsequent hospital visit by physician Xr [facility] Work Phone: Radiology Comment on above: Expiratory wheezing [R06.2] Start: 10-21-2022 End: 10-21-2022 Patient encounter procedure Edna Loco APRN.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 Work Phone: [facility] Comment on above: Acute cough (Primary Dx); Expiratory wheezing Start: 07-20-2022 Telephone encounter Pastor Garcia MD Work Phone: [facility] Comment on above: Results Start: 07-17-2022 End: 07-17-2022 Subsequent hospital visit by physician Xr [facility] Work Phone: Radiology Comment on above: Wrist pain, right [M 25.531] Start: 07-17-2022 End: 07-17-2022 Patient encounter procedure Elan Garcia MD Work Phone: [facility] Comment on above: Wrist pain, right (P rimary Dx); Hand pain, right; Screening mammogram for breast cancer Start: 07-15-2022 Telephone encounter Pastor Garcia MD Work Phone: [facility] Comment on above: Erroneous encounter- disregard Start: 07-04-2022 Telephone encounter Mitul pugh DO Work Phone: Hematology/Oncology Comment on above: Results (BCR/ABL Neg ative) Start: 06-30-2022 Telephone encounter [facility] MD [facility] Comment on above: Patient Update Start: 06-22-2022 End: 06-22-2022 Patient encounter procedure Edna Loco APRN.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 Work Phone: [facility] [place] Comment on above: Fall, subsequent enc ounter (Primary Dx); Closed fracture of right side of maxilla with routine healing, subsequent encounter; Closed fracture of orbit with routine healing, subsequent encounter; Laceration of right hand without foreign body, subsequent encounter; Facial laceration, subsequent encounter Start: 06-15-2022 End: 06-15-2022 ambulatory Mitul Sánchez DO Work Phone: Hematology/Oncology Comment on above: Neutrophilia (Primar y Dx); Leukocytosis, unspecified type Start: 06-15-2022 End: 06-15-2022 Patient encounter procedure Mitul Sánchez DO Work Phone: [facility] Start: 06-03-2022 End: 06-03-2022 Patient encounter procedure Elan Garcia MD Work Phone: [facility] Comment on above: Leukocytosis, unspec ified type (Primary Dx); Neutrophilia; Essential hypertension; Mixed hyperlipidemia; Hypopituitarism (HCC); Gastroesophageal reflux disease without esophagitis; Stage 3a chronic kidney disease (HCC); Vaginal irritation Start: 06-01-2022 End: 06-01-2022 Subsequent hospital visit by physician Janna [facility] [place] Work Phone: Radiology Comment on above: Neutrophilia [D72.9] Start: 05-29-2022 Telephone encounter Pastor Garcia MD Work Phone: [facility] [place] Comment on above: Results Start: 05-15-2022 Telephone encounter Edna barraza APRN.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 Work Phone: [facility] [place] Comment on above: Orders Start: 05-13-2022 Telephone encounter Pastor Garcia MD Work Phone: [facility] [place] Comment on above: Results Start: 05-12-2022 Telephone encounter Pastor Garcia MD Work Phone: [facility] [place] Comment on above: Results Start: 05-12-2022 End: 05-12-2022 Subsequent hospital visit by physician [facility] Work Phone: Cat Scan Comment on above: Leukocytosis, unspec ified type [D72.829] Start: 05-12-2022 End: 05-12-[address] Kasey Bashir Work Phone: [facility] Start: 05-11-2022 End: 05-11-2022 Patient encounter procedure Elan Garcia MD Work Phone: [facility] [place] Comment on above: Leukocytosis, unspec ified type (Primary Dx); Abdominal pain, generalized Start: 05-01-2022 Telephone encounter Pastor Garcia MD Work Phone: [facility] Comment on above: labs coming from Dr Sung office Start: 04-30-2022 End: 04-30-[address] Kasey Bashir Work Phone: [facility] Start: 04-30-2022 End: 04-30-[address] Kasey Bashir Work Phone: [facility] Start: 04-23-2022 Telephone encounter Pastor Garcia MD Work Phone: [facility] [place] Comment on above: Lab Orders Start: 04-14-2022 Telephone encounter Edna barraza APRN.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 Work Phone: [facility] [place] Comment on above: Results Start: 04-13-2022 End: 04-13-2022 Patient encounter procedure Edna Loco APRN.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 Work Phone: [facility] [place] Comment on above: Vaginal irritation ( Primary Dx) Start: 03-20-2022 End: 03-20-2022 Subsequent hospital visit by physician Janna [facility] [place] Work Phone: Radiology Comment on above: Chronic bilateral lo w back pain without sciatica [M54.50, G89.29] Start: 03-20-2022 End: 03-20-2022 Patient encounter procedure Elan Garcia MD Work Phone: [facility] [place] Comment on above: Chronic bilateral lo w back pain without sciatica (Primary Dx); Chronic pain of both hips; Fall in home, initial encounter Start: 01-16-2022 Telephone encounter Pastor Garcia MD Work Phone: [facility] [place] Comment on above: Results Start: 05-30-2021 End: 05-30-2021 Subsequent hospital visit by physician Xr [facility] [employer] Work Phone: Radiology Comment on above: Foot pain, left [M79 .672] Start: 12-20-2020 End: 12-20-2020 Subsequent hospital visit by physician Xr [facility] [employer] Work Phone: Radiology Comment on above: Cough [R05] Start: 11-19-2020 End: 11-19-2020 Subsequent hospital visit by physician Xr [facility] [employer] Work Phone: Radiology Comment on above: Acute bilateral low back pain without sciatica [M54.5] Start: 10-28-2018 End: 10-28-2018 Patient encounter procedure [facility] Start: 04-22-2009 End: 04-15-2016 Patient encounter status Edna Loco 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 Work Phone: [facility] Work Phone: Procedures Date Procedure Procedure Detail Performing Clinician Start: 05-21-2025 X-ray of cervical spine Dr. Pastor Garcia MD Work Phone: Start: 05-21-2025 X-ray of lumbosacral spine Dr. Pastor Garcia MD Work Phone: Start: 05-21-2025 X-ray of thoracic sp ine, three views Dr. Pastor Garcia MD Work Phone: Start: 09-25-2024 Urnls dip stick/tabl et rgnt auto w/o microscopy Adeline Butler 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 Work Phone: Start: 08-03-2024 Dup-scan xtr veins unilateral/limited study Edna Goyallogjose angel 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 Work Phone: Start: 05-24-2024 Radex hip unilateral with pelvis 2-3 views Elan Garcia MD Work Phone: Start: 03-22-2024 Adult depression screening assessment Jg Howard PT, DPT Start: 01-23-2024 Computed tomography angiography of abdominal and/or pelvic blood vessel Dr. Pastor Garcia Work Phone: Start: 01-22-2024 Measurement of occul t blood in stool specimen using immunoassay Dr. Pastor Garcia Work Phone: Start: 01-11-2024 X-ray of both feet Dr. Pastor Garcia Work Phone: Start: 01-05-2024 Radex spine lumbosac ral 2/3 views Elan Garcia MD Work Phone: Start: 12-01-2023 Radex ribs uni w/posteroant ch minimum 3 views Elan Garcia MD Work Phone: Start: 08-03-2023 Urnls dip stick/tabl et rgnt auto w/o microscopy Edna Goyallogjose angel 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 Work Phone: Start: 04-02-2023 Magnetic resonance angiography of head without contrast Dr. Pastor Garcia Work Phone: Start: 04-02-2023 Magnetic resonance angiography of neck without contrast Dr. Pastor Garcia Work Phone: Start: 04-02-2023 MRI of brain without contrast Dr. Pastor Garcia Work Phone: Start: 04-01-2023 CT of head without contrast Dr. Pastor Garcia Work Phone: Start: 10-21-2022 Radiologic exam ches t 2 views Edna Loco 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 Work Phone: Start: 07-17-2022 Radex hand minimum 3 views Elan Garcia MD Work Phone: Start: 06-01-2022 Radiologic exam ches t 2 views Elan Garcia MD Work Phone: Start: 05-12-2022 Ct abdomen & pelvis w/o contrast material Elan Garcia MD Work Phone: Start: 03-20-2022 Radex hips bilateral with pelvis minimum 5 views Elan Garcia MD Work Phone: Start: 08-13-2021 Mammography Pastor Garcia MD Work Phone: Start: 05-30-2021 Radex foot complete minimum 3 views Edna Podlogjose angel 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 Work Phone: Start: 04-22-2021 Adult depression screening assessment Elan Garcia MD Work Phone: Start: 12-20-2020 Radiologic exam ches t 2 views Cary Smith 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 Work Phone: Start: 11-19-2020 Radex spine lumbosac ral 2/3 views Elan Garcia MD Work Phone: Start: 07-17-2019 Colonoscopy Pastor Garcia MD Work Phone: Plan of Treatment Date Care Activity Detail Author Start: 03-01-2030 Urine microalbumin profile [facility] Start: 09-25-2027 Diabetes Screening Diabetes Screenin [facility] Start: 06-22-2027 Diabetes Screening Diabetes Screenin [facility] Start: 05-11-2027 LIPID SCREEN LIPID SCREEN [facility] Start: 01-28-2027 Diabetes Screening Diabetes Screenin g [facility] Start: 12-01-2026 Diabetes Screening Diabetes Screenin g [facility] Start: 09-22-2026 Diabetes Screening Diabetes Screenin g [facility] Start: 04-16-2026 LIPID SCREEN LIPID SCREEN [facility] Start: 03-15-2026 DIABETES SCREEN DIABETES SCREEN [facility] Start: 03-15-2026 Diabetes Screening Diabetes Screenin g [facility] Start: 12-08-2025 Screening for osteoporosis Bone Density Screening [facility] Start: 10-27-2025 Annual PCP Team [employer] Architect aaron Disease Visit Annual PCP Team Chronic Disease Visit [facility] Start: 10-27-2025 Covid-19 Vaccine ( season) Covid-19 Vaccine ( season) [facility] Comment on above: Postponed from 07/23 (Declined at this time) Start: 09-25-2025 Annual PCP Team [employer] aaron Disease Visit Annual PCP Team Chronic Disease Visit [facility] Start: 09-25-2025 Creatinine measurement Serum Creatin ine [facility] Start: 07-31-2025 Annual PCP Team [employer] Architect aaron Disease Visit Annual PCP Team Chronic Disease Visit [facility] Start: 06-22-2025 Annual PCP Team [employer] Architect aaron Disease Visit Annual PCP Team Chronic Disease Visit [facility] Start: 06-22-2025 BP Controlled (<130/80) BP Controlle d (<130/80) [facility] Start: 06-22-2025 Creatinine measurement Serum Creatin ine [facility] Start: 06-01-2025 BP Controlled (<130/80) BP Controlle d (<130/80) [facility] Start: 05-21-2025 Influenza vaccination Influenza Vacc ine (#1) [facility] Comment on above: Postponed from 07/23 (Declined at this time) Start: 05-13-2025 Annual PCP Team [employer] Architect aaron Disease Visit Annual PCP Team Chronic Disease Visit [facility] Start: 05-13-2025 BP Controlled (<130/80) BP Controlle d (<130/80) [facility] [facility] Start: 05-11-2025 DIABETES SCREEN DIABETES SCREEN [facility] Start: 04-27-2025 End: 04-27-2025 Patient encounter procedure [facility] Comment on above: 6 month follow up 6 month follow up/[facility]*Per AWV Initiative-[id number], [id number] Modifier 25* Start: 03-22-2025 Annual PCP Team Bi Solutions Architect aaron Disease Visit Annual PCP Team Chronic Disease Visit [facility] Start: 03-22-2025 Anxiety Screening Anxiety Screening [facility] Start: 03-22-2025 BP Controlled (<130/80) BP Controlle d (<130/80) [facility] Start: 03-22-2025 Depression Screening Depression Scre ening [facility] Start: 02-27-2025 Annual PCP Team [employer] Solutions Architect aaron Disease Visit Annual PCP Team Chronic Disease Visit [facility] Start: 02-01-2025 Annual PCP Team Bi Solutions Architect aaron Disease Visit Annual PCP Team Chronic Disease Visit [facility] Start: 01-28-2025 Annual PCP Team Bi Solutions Architect aaron Disease Visit Annual PCP Team Chronic Disease Visit [facility] Start: 01-28-2025 BP Controlled (<130/80) BP Controlle d (<130/80) [facility] Start: 01-28-2025 Complete blood count Hemoglobin/Jake tocrit [facility] Start: 01-28-2025 Creatinine measurement Serum Creatin ine [facility] Start: 01-05-2025 Annual PCP Team [employer] Solutions Architect aaron Disease Visit Annual PCP Team Chronic Disease Visit [facility] Start: 01-05-2025 BP Controlled (<130/80) BP Controlle d (<130/80) [facility] Start: 12-01-2024 Annual PCP Team Bi Solutions Architect aaron Disease Visit Annual PCP Team Chronic Disease Visit [facility] Start: 12-01-2024 Complete blood count Hemoglobin/Jake tocrit [facility] Start: 12-01-2024 Creatinine measurement Serum Creatin ine [facility] Start: 11-23-2024 End: 11-23-2024 ambulatory 11/23/2024 10:15 AM EST OT/PT/Speech Visit [facility] [address] [place] [address] OCatherine Stern, PT Acute left-sided low back pain with left-sided sciatica [M54.42] [facility] Comment on above: Acute left-sided low back pain with left-sided sciatica [M54.42] Start: 11-22-2024 Advance Directive Discussion Advance Directive Discussion [facility] Start: 10-27-2024 End: 10-27-2024 Patient encounter procedure 10/27/2024 10:00 AM EST Office Visit [facility] [address] [place] [address] PodlogarEdna APRN.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 [address] [place] [address] routine follow up [facility] Comment on above: routine follow up Start: 10-21-2024 DIABETES SCREEN DIABETES SCREEN [facility] Start: 09-22-2024 Annual PCP Team Bi Solutions Architect aaron Disease Visit Annual PCP Team Chronic Disease Visit [facility] Start: 09-22-2024 End: 12-22-2024 Comprehensive metabolic 2000 panel - Serum or Plasma COMPREHENSIVE METABOLIC PANEL Lab Routine Stage 3a chronic kidney disease (HCC) Expected: 09/22/2024, Expires: 12/22/2024 [facility] Work Phone: Comment on above: Expected: 09/22/2024 , Expires: 12/22/2024 Start: 09-22-2024 Covid-19 Vaccine (#1) Covid-19 Vacci ne (#1) [facility] Comment on above: Postponed from 10/20 (Declined at this time) Start: 09-22-2024 Covid-19 Vaccine () Covid-19 Vaccine () [facility] Comment on above: Postponed from 07/23 (Declined at this time) Start: 09-22-2024 End: 12-22-2024 Lipid 1996 panel - Serum or Plasma LIPID PANEL BASIC Lab Routine Mixed hyperlipidemia Expected: 09/22/2024, Expires: 12/22/2024 [facility] Comment on above: Expected: 09/22/2024 , Expires: 12/22/2024 Start: 09-22-2024 Pneumococcal Vaccine : 65+ (2 - PCV) Pneumococcal Vaccine: 65+ (2 - PCV) [facility] Comment on above: Postponed from 09/18 (Declined at this time) Start: 09-22-2024 Pneumococcal Vaccine : 65+ (2 of 2 - PCV) Pneumococcal Vaccine: 65+ (2 of 2 - PCV) [facility] Comment on above: Postponed from 09/18 (Declined at this time) Start: 09-22-2024 RSV Vaccine (1 - 1-d ose 60+ series) RSV Vaccine (1 - 1-dose 60+ series) [facility] Comment on above: Postponed from 04/19 (Declined at this time) Start: 09-22-2024 RSV Vaccine (1 - 1-d ose 75+ series) RSV Vaccine (1 - 1-dose 75+ series) [facility] Comment on above: Postponed from 04/19 (Declined at this time) Start: 09-22-2024 Serum Creatinine Serum Creatinine Cl [facility] Start: 09-22-2024 Shingrix Vaccine (1 of 2) Zurita grix Vaccine (1 of 2) [facility] Comment on above: Postponed from 04/19 (Declined at this time) Start: 09-22-2024 End: 09-22-2024 Patient encounter procedure 09/22/2024 10:00 AM EDT Office Visit [facility] [address] [place], [place] [phone] Elan Garcia MD [address] [place], [place] [phone] 6 month follow up [facility] Comment on above: 6 month follow up Start: 08-03-2024 Annual PCP Team Bi Solutions Architect aaron Disease Visit Annual PCP Team Chronic Disease Visit [facility] Start: 08-03-2024 BP Controlled (<130/80) BP Controlle d (<130/80) [facility] Start: 08-03-2024 End: 08-03-2024 Patient encounter procedure 08/03/2024 10:45 AM EDT Appointment Radiology [address] [place], [place] [id number] Pain in right lower leg [M79.661] Radiology Comment on above: Pain in right lower leg [M79.661] Start: 07-23-2024 Covid-19 Vaccine ( season) Covid-19 Vaccine ( season) [facility] Start: 07-23-2024 Covid-19 Vaccine ( season) Covid-19 Vaccine ( season) [facility] Start: 07-23-2024 Influenza vaccination [facility] Start: 07-17-2024 Colonoscopy COLONOSCOPY [facility] Start: 07-17-2024 COLORECTAL CANCER SCREENING COLORECTAL CANCER SCREENING [facility] Start: 06-23-2024 End: 06-23-2024 ambulatory 06/23/2024 10:00 AM EDT OT/PT/Speech Visit [facility] [address] [place] [address] Catherine Valles, PT Right Hip FX [facility] Comment on above: Right Hip FX Start: 06-22-2024 End: 09-21-2024 Comprehensive metabolic 2000 panel - Serum or Plasma [facility] Work Phone: Comment on above: Expected: 06/22/2024 , Expires: 09/21/2024 Start: 06-22-2024 End: 09-21-2024 Urinalysis complete panel - Urine [facility] Comment on above: Expected: 06/22/2024 , Expires: 09/21/2024 Start: 06-22-2024 End: 06-22-2024 Patient encounter procedure 06/22/2024 10:00 AM EDT Office Visit Family [facility] [place] [address] [facility] [place] [address] Elan Garcia MD [address] [facility] [place] [address] 6 week follow up [facility] [place] Comment on above: 6 week follow up Start: 06-01-2024 End: 06-01-2024 ambulatory 06/01/2024 9:45 AM EDT OT/PT/Speech Visit [facility] [address] [place] [address] Jg Howard, PT, DPT Fall in home, subsequent encounter [W19.XXXD, Y92.009]; Other fracture of unspecified thoracic vertebra, initial encounter for closed fracture (HCC) [S22.008A]; Closed fracture of ramus of right pubis with routine healing, subsequent encounter [S32.591D] [facility] Comment on above: Fall in home, subseq uent encounter [W19.XXXD, Y92.009]; Other fracture of unspecified thoracic vertebra, initial encounter for closed fracture (HCC) [S22.008A]; Closed fracture of ramus of right pubis with routine healing, subsequent encounter [S32.591D] Start: 05-26-2024 End: 05-26-2024 Patient encounter procedure 05/26/2024 10:00 AM EDT Appointment Radiology [address] [facility] [place] [address] Hip xray Radiology Comment on above: Hip xray Start: 05-21-2024 Influenza vaccination Influenza Vacc ine (#1) [facility] Comment on above: Postponed from 07/23 (Declined at this time) Start: 05-18-2024 End: 06-12-2025 XR Pelvis and Hip - right AP and Lateral frog XR HIP GENERAL 3V PELV/AP/LAT RIGHT Radiology Routine Fall in home, subsequent encounter Closed fracture of ramus of right pubis with routine healing, subsequent encounter Expected: 05/18/2024, Expires: 06/12/2025 [facility] Work Phone: Comment on above: Expected: 05/18/2024 , Expires: 06/12/2025 Start: 04-12-2024 ANNUAL PCP TEAM VEHICLE DAMAGE APPRAISER AARON DISEASE VISIT ANNUAL PCP TEAM CHRONIC DISEASE VISIT [facility] Start: 03-15-2024 SERUM CREATININE SERUM CREATININE Cl [facility] Start: 03-08-2024 ANNUAL PCP TEAM VEHICLE DAMAGE APPRAISER AARON DISEASE VISIT ANNUAL PCP TEAM CHRONIC DISEASE VISIT [facility] Start: 03-08-2024 BP CONTROLLED (<130/80) BP CONTROLLE D (<130/80) [facility] Start: 01-29-2024 End: 04-29-2024 CBC W Auto Differential panel - Blood [facility] Work Phone: Comment on above: Expected: 01/29/2024 , Expires: 04/29/2024 Start: 01-29-2024 End: 04-29-2024 Comprehensive metabolic 2000 panel - Serum or Plasma [facility] Work Phone: Comment on above: Expected: 01/29/2024 , Expires: 04/29/2024 Start: 01-23-2024 [facility] Start: 12-21-2023 Shingrix Vaccine (2 of 2) Zurita grix Vaccine (2 of 2) [facility] Start: 11-22-2023 Advance Directive Discussion Advance Directive Discussion [facility] Start: 11-22-2023 Behavioral Health Screening Behavioral Health Screening [facility] Start: 11-22-2023 Depression Assessment Depression Ass essment [facility] Start: 10-21-2023 ANNUAL PCP TEAM VEHICLE DAMAGE APPRAISER AARON DISEASE VISIT ANNUAL PCP TEAM CHRONIC DISEASE VISIT [facility] Start: 07-23-2023 Influenza vaccination C [facility] Start: 07-17-2023 ANNUAL PCP TEAM VEHICLE DAMAGE APPRAISER AARON DISEASE VISIT ANNUAL PCP TEAM CHRONIC DISEASE VISIT [facility] Start: 07-17-2023 BP CONTROLLED (<130/80) BP CONTROLLE D (<130/80) [facility] Start: 06-22-2023 ANNUAL PCP TEAM VEHICLE DAMAGE APPRAISER AARON DISEASE VISIT ANNUAL PCP TEAM CHRONIC DISEASE VISIT [facility] Start: 06-22-2023 BP CONTROLLED (<130/80) BP CONTROLLE D (<130/80) [facility] Start: 06-15-2023 HEMOGLOBIN/HEMATOCRIT HEMOGLOBIN/HEM ATOCRIT [facility] Start: 06-03-2023 ANNUAL PCP TEAM VEHICLE DAMAGE APPRAISER AARON DISEASE VISIT ANNUAL PCP TEAM CHRONIC DISEASE VISIT [facility] Start: 06-03-2023 BP CONTROLLED (<130/80) BP CONTROLLE D (<130/80) [facility] Start: 06-03-2023 COVID-19 VACCINE (#1) COVID-19 VACCI NE (#1) [facility] Comment on above: Postponed from 10/20 (Declined at this time) Start: 06-03-2023 PNEUMOCOCCAL: 65+ (2 - PCV) PNEUMOCOCCAL: 65+ (2 - PCV) [facility] Comment on above: Postponed from 09/18 (Declined at this time) Start: 06-03-2023 SHINGRIX VACCINE (1 of 2) ZURITA GRIX VACCINE (1 of 2) [facility] Comment on above: Postponed from 04/19 (Declined at this time) Start: 05-21-2023 Influenza vaccination INFLUENZA (#1) [facility] Comment on above: Postponed from 07/23 (Declined at this time) Start: 05-11-2023 ANNUAL PCP TEAM VEHICLE DAMAGE APPRAISER AARON DISEASE VISIT ANNUAL PCP TEAM CHRONIC DISEASE VISIT [facility] Start: 05-11-2023 HEMOGLOBIN/HEMATOCRIT HEMOGLOBIN/HEM ATOCRIT [facility] Start: 05-11-2023 SERUM CREATININE SERUM CREATININE Cl [facility] Start: 04-13-2023 ANNUAL PCP TEAM VEHICLE DAMAGE APPRAISER AARON DISEASE VISIT ANNUAL PCP TEAM CHRONIC DISEASE VISIT [facility] Start: 04-13-2023 BP CONTROLLED (<130/80) BP CONTROLLE D (<130/80) [facility] Start: 04-02-2023 Patient discharge [facility] Start: 04-02-2023 Referral to occupati onal therapist [facility] Start: 04-01-2023 Following clinical pathway protocol [facility] Start: 04-01-2023 Application of intermittent pneumatic compression device [facility] Start: 04-01-2023 Assessment of risk o f venous thromboembolism [facility] Start: 04-01-2023 Cardiac monitoring [facility] Start: 04-01-2023 Catheterization of vein [facility] Start: 04-01-2023 Continuous pulse oximetry [facility] Start: 04-01-2023 Elevation of head of bed [facility] Start: 04-01-2023 Exercises [facility] Start: 04-01-[address] anned interventions [facility] Start: 04-01-2023 Inhalation therapy procedure [facility] Start: 04-01-2023 Insertion of cathete r into peripheral vein [facility] Start: 04-01-2023 Measuring intake and output [facility] Start: 04-01-2023 Notification of physician [facility] Start: 04-01-2023 Oxygen therapy [facility] Start: 04-01-2023 Providing care accor ding to standard [facility] Start: 04-01-2023 Provision of activit y privileges [facility] Start: 04-01-2023 Referral to service [facility] Start: 04-01-2023 Tobacco use cessatio n education [facility] Start: 04-01-2023 [facility] Start: 04-01-2023 Verification routine [facility] Start: 04-01-2023 Admission procedure [facility] Start: 03-20-2023 ANNUAL PCP TEAM VEHICLE DAMAGE APPRAISER AARON DISEASE VISIT ANNUAL PCP TEAM CHRONIC DISEASE VISIT [facility] Start: 03-20-2023 BP CONTROLLED (<130/80) BP CONTROLLE D (<130/80) [facility] Start: 03-08-2023 End: 05-08-2023 Comprehensive metabolic 2000 panel - Serum or Plasma COMP METABOLIC PANEL Lab Routine Essential hypertension Expected: 03/08/2023, Expires: 05/08/2023 [facility] Work Phone: Comment on above: Expected: 03/08/2023 , Expires: 05/08/2023 Start: 11-22-2022 ADVANCE DIRECTIVE DISCUSSION ADVANCE DIRECTIVE DISCUSSION [facility] Start: 11-22-2022 DEPRESSION ASSESSMENT DEPRESSION ASS ESSMENT [facility] Start: 11-10-2022 Therapeutic prophylactic/dx injection subq/im THER/PROPH/DIAG INJ SC/IM [facility] Work Phone: Start: 10-21-2022 SERUM CREATININE SERUM CREATININE [facility] Start: 08-17-2022 End: 08-16-2023 Screening mammography bi 2-view breast inc cad JOON SCREENING Radiology Routine Screening mammogram for breast cancer Expected: 08/17/2022, Expires: 08/16/2023 [facility] Work Phone: Comment on above: Expected: 08/17/2022 , Expires: 08/16/2023 Start: 08-13-2022 Mammography MAMMOGRAM [facility] Start: 07-23-2022 Influenza vaccination INFLUENZA (#1) [facility] Start: 06-15-2022 End: 08-15-2022 BCR-ABL QUALITATIVE MULTIPLEX RT-PCR [facility] Work Phone: Comment on above: Expected: 06/15/2022 , Expires: 08/15/2022 Start: 06-15-2022 End: 08-15-2022 Cortisol [Mass/volume] in Serum or Plasma [facility] Work Phone: Comment on above: Expected: 06/15/2022 , Expires: 08/15/2022 Start: 05-26-2022 End: 07-26-2022 CBC W Auto Differential panel - Blood CBC + DIFF Lab Routine Neutrophilia Expected: 05/26/2022, Expires: 07/26/2022 [facility] Work Phone: Comment on above: Expected: 05/26/2022 , Expires: 07/26/2022 Start: 05-23-2022 End: 07-23-2022 CBC panel - Blood by Automated count CBC Lab Routine Hypopituitarism (HCC) Essential hypertension Mixed hyperlipidemia Expected: 05/23/2022, Expires: 07/23/2022 [facility] Work Phone: Comment on above: Expected: 05/23/2022 , Expires: 07/23/2022 Start: 05-23-2022 End: 07-23-2022 Comprehensive metabolic 2000 panel - Serum or Plasma COMP METABOLIC PANEL Lab Routine Hypopituitarism (HCC) Essential hypertension Mixed hyperlipidemia Expected: 05/23/2022, Expires: 07/23/2022 [facility] Work Phone: Comment on above: Expected: 05/23/2022 , Expires: 07/23/2022 Start: 05-23-2022 End: 07-23-2022 LIPID PANEL, NONFASTING LIPID PANEL, NONFASTING Lab Routine Hypopituitarism ([facility]) Essential hypertension Mixed hyperlipidemia Expected: 05/23/2022, Expires: 07/23/2022 [facility] Work Phone: Comment on above: Expected: 05/23/2022 , Expires: 07/23/2022 Start: 05-23-2022 End: 07-23-2022 Thyrotropin [Units/volume] in Serum or Plasma TSH BLD Lab Routine Hypopituitarism (HCC) Essential hypertension Mixed hyperlipidemia Expected: 05/23/2022, Expires: 07/23/2022 [facility] Work Phone: Comment on above: Expected: 05/23/2022 , Expires: 07/23/2022 Start: 04-22-2022 Adult depression screening assessment DEPRESSION SCREENING [facility] Start: 04-22-2022 COVID-19 VACCINE (#1) COVID-19 VACCI NE (#1) [facility] Comment on above: Postponed from 04/19 (Declined at this time) Start: 04-22-2022 COVID-19 VACCINE (1) COVID-19 VACCIN E (1) [facility] Comment on above: Postponed from 04/19 (Declined at this time) Start: 2022 RSV Vaccine (1 - 1-d ose 75+ series) RSV Vaccine (1 - 1-dose 75+ series) [facility] Start: 04-16-2022 HEMOGLOBIN/HEMATOCRIT HEMOGLOBIN/HEM ATOCRIT [facility] Start: 11-22-2021 ADVANCE DIRECTIVE DISCUSSION ADVANCE DIRECTIVE DISCUSSION [facility] Start: 11-22-2021 DEPRESSION ASSESSMENT DEPRESSION ASS ESSMENT [facility] Start: 09-18-2014 Pneumococcal Vaccine : 50+ (2 of 2 - PCV) Pneumococcal Vaccine: 50+ (2 of 2 - PCV) [facility] Start: 09-18-2014 Pneumococcal Vaccine : 65+ (2 - PCV) Pneumococcal Vaccine: 65+ (2 - PCV) [facility] Start: 09-18-2014 Pneumococcal Vaccine : 65+ (2 of 2 - PCV) Pneumococcal Vaccine: 65+ (2 of 2 - PCV) [facility] Start: 09-18-2014 PNEUMOCOCCAL: 65+ (2 - PCV) PNEUMOCOCCAL: 65+ (2 - PCV) [facility] Start: 09-27-2013 FECAL OCCULT BLOOD FECAL OCCULT BLOO D [facility] Start: 1997 SHINGRIX VACCINE (1 of 2) ZURITA GRIX VACCINE (1 of 2) [facility] Start: 1992 COLOGUARD (FIT-DNA) COLOGUARD (FIT-D NA) [facility] Start: [address] COLONOGRAPHY [facility] Start: 1992 SIGMOIDOSCOPY SIGMOIDOSCOPY [facility] Start: 1965 BP CONTROLLED (<130/80) BP CONTROLLE D (<130/80) [facility] Start: 1952 COVID-19 VACCINE (#1) COVID-19 VACCI NE (#1) [facility] Start: 1947 COVID-19 VACCINE (#1) COVID-19 VACCI NE (#1) [facility] Bacteria identified in Blood by Culture BLOOD CULTURE Microbiology Routine Neutrophilia Leukocytosis, unspecified type 06/01/2022 10:26 AM EDT [facility] Work Phone: Bacteria identified in Urine by Culture URINE CULTURE Microbiology Routine Leukocytosis, unspecified type 05/11/2022 4:00 PM EDT [facility] Work Phone: Bacteria identified in Urine by Culture URINE CULTURE Microbiology Routine Vaginal discharge Vaginal itching 08/03/2023 9:45 AM EDT [facility] Work Phone: Bacteria identified in Urine by Culture URINE CULTURE Microbiology Routine Lower abdominal tenderness 09/25/2024 10:28 AM [facility] BACTERIAL VAGINOSIS AMPLIFICATION BACTERIAL VAGINOSIS AMPLIFICATION Lab Routine Vaginal irritation [facility] BACTERIAL VAGINOSIS NAAT BACTERI AL VAGINOSIS NAAT Lab Routine Vaginal discharge 08/03/2023 9:45 AM EDT [facility] Work Phone: DARON / TRICHOMONA S AMPLIFICATION DARON / TRICHOMONAS AMPLIFICATION Lab Routine Vaginal irritation 04/13/2022 2:15 PM [facility] Work Phone: DARON/TRICHOMONAS NAAT DARON /TRICHOMONAS NAAT Lab Routine Vaginal discharge 08/03/2023 9:45 AM [facility] Work Phone: CBC W Ordered Manual Differential panel - Blood PATHOLOGIST INTERPRETATION WITH CBC AND DIFF Lab Routine Neutrophilia Leukocytosis, unspecified type 06/15/2022 2:11 PM [facility] Work Phone: Comprehensive metabo lic 2000 panel - Serum or Plasma COMPREHENSIVE METABOLIC PANEL Lab Routine Stage 3a chronic kidney disease (HCC) 09/25/2024 9:39 AM [facility] End: 06-10-2023 Ct abdomen & pelvis w/o contrast material CT ABD/PEL WO IVCON Radiology STAT Leukocytosis, unspecified type 1 Occurrences starting 05/11/2022 until 06/10/2023 [facility] Work Phone: Comment on above: 1 Occurrences starti ng 05/11/2022 until 06/10/2023 Lipid 1996 panel - S yassine or Plasma LIPID PANEL BASIC Lab Routine Mixed hyperlipidemia 09/25/2024 9:39 AM [facility] MR Brain WO and W contrast IV [facility] MR Brain WO contrast [facility] End: 08-19-2023 Mri any jt upper extremity w/o contrast matrl MRI WRIST WO IVCON RT Radiology Routine Right wrist pain 1 Occurrences starting 07/20/2022 until 08/19/2023 [facility] Work Phone: Comment on above: 1 Occurrences starti ng 07/20/2022 until 08/19/2023 Patient Education [facility] Work Phone: Patient referral [facility] Work Phone: End: 11-20-2023 Radiologic exam chest 2 views XR CHEST 2V FRONTAL/LAT Radiology Routine Expiratory wheezing Acute cough 1 Occurrences starting 10/21/2022 until 11/20/2023 [facility] Work Phone: Comment on above: 1 Occurrences starti ng 10/21/2022 until 11/20/2023 Radiologic exam ches t 2 views XR CHEST 2V FRONTAL/LAT Radiology Routine Expiratory wheezing 10/21/2022 9:35 AM [facility] Work Phone: T4 free measurement [facility] Triiodothyronine, fr ee measurement [facility] UA DIP, URINE (POC) UA DIP, URIN E (POC) Lab Routine Leukocytosis, unspecified type Ordered: 05/11/2022 [facility] Work Phone: Comment on above: Ordered: 05/11/2022 Urinalysis complete panel - Urine URINALYSIS, WITH MICROSCOPIC Lab Routine Lower abdominal tenderness 09/25/2024 10:28 AM [facility] [employer] Work Phone: End: 08-30-2025 US Lower extremity vein - right US DVT LOWER RIGHT Radiology JOHN Pain in right lower leg 1 Occurrences starting 07/31/2024 until 08/30/2025 [facility] Work Phone: Comment on above: 1 Occurrences starti ng 07/31/2024 until 08/30/2025 End: 08-16-2023 XR HAND GENERAL 3V PA/LAT/OBL RIGHT XR HAND GENERAL 3V PA/LAT/OBL RIGHT Radiology Routine Wrist pain, right Hand pain, right 1 Occurrences starting 07/17/2022 until 08/16/2023 [facility] Work Phone: Comment on above: 1 Occurrences starti ng 07/17/2022 until 08/16/2023 XR HAND GENERAL 3V PA/LAT/OBL RIGHT XR HAND GENERAL 3V PA/LAT/OBL RIGHT Radiology Routine Wrist pain, right Hand pain, right 07/17/2022 8:40 AM EDT [facility] Work Phone: End: 08-16-2023 XR WRIST GENERAL 3V PA/LAT/OBL RIGHT XR WRIST GENERAL 3V PA/LAT/OBL RIGHT Radiology Routine Wrist pain, right Hand pain, right 1 Occurrences starting 07/17/2022 until 08/16/2023 [facility] Work Phone: Comment on above: 1 Occurrences starti ng 07/17/2022 until 08/16/2023 XR WRIST GENERAL 3V PA/LAT/OBL RIGHT XR WRIST GENERAL 3V PA/LAT/OBL RIGHT Radiology Routine Wrist pain, right Hand pain, right 07/17/2022 8:40 AM EDT [facility] Work Phone: [facility] Immunizations Immunization Date Immunization Notes Care Provider Fa [facility] 10-25-2021 influenza, high-dose , quadrivalent vaccine (FLUZONE HIGH DOSE QUADRIVALENT) Elan Garcia MD Work Phone: [facility] 10-25-2021 influenza virus vaccine, unspecified formulation Edna Loco APRN.CNP Work Phone: [facility] 03-01-2020 tetanus toxoid, redu jamaal diphtheria toxoid, and acellular pertussis vaccine, adsorbed Elan Garcia MD Work Phone: [facility] 09-18-2013 influenza virus vaccine, unspecified formulation Elan Garcia MD Work Phone: [facility] 09-18-2013 pneumococcal polysaccharide vaccine, 23 valent Elan Garcia MD Work Phone: [facility] 09-10-2009 influenza virus vaccine, unspecified formulation Elan Garcia MD Work Phone: [facility] Work Phone: 04-22-2009 tetanus and diphther ia toxoids, adsorbed, preservative free, for adult use (2 Lf of tetanus toxoid and 2 Lf of diphtheria toxoid) Elan Garcia MD Work Phone: [facility] 10-25-2008 influenza virus vaccine, unspecified formulation Elan Garcia MD Work Phone: [facility] 09-14-2007 influenza virus vaccine, unspecified formulation Elan Garcia MD Work Phone: [facility] Work Phone: 10-08-2006 influenza virus vaccine, unspecified formulation Elan Garcia MD Work Phone: [facility] 09-25-2005 influenza virus vaccine, unspecified formulation Elan Garcia MD Work Phone: [facility] Work Phone: Payers Date Payer Category Payer Self-pay [id number] 2021 Medicare HUMANA MEDICARE HUMANA MEDICARE PPO [id number] 2021-Present [phone] [facility] [id number] [place] [address] PPO [id number] 2021 Medicare [id number] 2019 Medicare [id number] Medicare [id number] Unknown [id number] Unknown [id number] Unknown [id number] Unknown [id number] Unknown [id number] Unknown [id number] Social History Date Type Detail Facility Start: 06-02-2011 End: 10-18-2024 Tobacco smoking status NHIS Never smoked tobacco [facility] Start: 03-20-2022 End: 10-27-2024 Alcohol intake Current non-drinker of alcohol (finding) [facility] Start: 1945 Sex Assigned At Not on file [facility] Start: 10-20-2020 End: 10-21-2022 Exposure to SARS-CoV-2 (event) Not sure [facility] Start: 04-30-2022 End: 01-22-2024 Tobacco smoking status NHIS Unknown if ever smoked [facility] Start: 08-19-2018 None [facility] Start: 04-24-2021 Homeless [facility] Start: 07-13-2019 Non-smoker [facility] Start: 1945 Sex Assigned At Female W [facility] Start: 06-02-2011 Tobacco use and exposure Smokeless tobacco non-user [facility] Work Phone: Start: 04-12-2023 End: 08-03-2023 History of Social function [facility] Work Phone: Start: 04-12-2023 End: 08-03-2023 Tobacco use panel [facility] Work Phone: Adult Depression Screening Assessment 1 [facility] Work Phone: Start: 06-18-2023 Gender identity Identifies as female gender (finding) [facility] Start: 06-18-2023 Sexual orientation Heterosexual (fin sherrill) [facility] Functional Status Date Assessment Result Facility 04-02-2023 Functional status Ambulates [facility] Work Phone: Mental Status Date Assessment Result Facility 11-19-2023 Cognitive function Awake;Alert;A ppropriate;Fol lows Commands [facility] Work Phone: 05-21-2023 Cognitive function Awake;Alert;A ppropriate;Fol lows Commands [facility] Work Phone: 04-02-2023 Cognitive function Awake;Alert;A ppropriate;Fol lows Commands [facility] Work Phone: 04-01-2023 Cognitive function Awake;Alert;A ppropriate;Fol lows Commands [facility] Work Phone: 11-10-2022 Cognitive function Voice/Name [facility] Work Phone: 05-12-2022 Cognitive function Voice/Name [facility] Work Phone: Clinical Notes 11-19-2020 to 05-21-2025 Note Date & Type Note Facility 05-21-2025 Radiology Diagnostic study note [facility] Imaging Services [address] [place], [place] [address] Cerv Spine 2 or 3 Views MR#: [id number] Acct: [id number] Name: DORA BRYANT Rep #: [id number] : 1945 F 80 From: Gabrielle Andersen MD PCP: Dr. Yon Salas MD Status: [facility] C Study:Cerv Spine 2 or 3 Views Date of Exam: 05/21/25 Exam# [id number] Ordering Dr: Yon Salas MD PROCEDURE: CERV SPINE 2 OR 3 VIEWS 05/21/2025 REASON FOR EXAM: NECK PAIN TECHNIQUE: CERV SPINE 2 OR 3 VIEWS COMPARISON: CT of the cervical spine 05/11/2024 FINDINGS: Cervical vertebral body heights and alignment are maintained. Multilevel disc height loss with uncovertebral and facet arthropathy, worst at C5-6 and C6-7. The odontoid views are unremarkable. Lungapices are clear. Prevertebral soft tissues are normal in thickness. RAD/Cerv Spine 2 or 3 Views IMPRESSION: Mild to moderate multilevel degenerative changes of the cervical spine, worst atC5-6 and C6-7. Reading Location: [id number] CC: Dr. Yon Salas MD ~ Prescription Eyeglass Maker: Signed [facility] 05-21-2025 Radiology Diagnostic study note [facility] Imaging Services [address] [place] [address] Thoracic Spine 3 Views MR#: [id number] Acct: [id number] Name: DORA BRYANT Rep #: [id number] : 1945 F 80 From: Gabrielle Andersen MD PCP: Dr. Yon Salas MD Status: REG C Study:Thoracic Spine 3 Views Date of Exam: 05/21/25 Exam# [id number] Ordering Dr: Yon Salas MD PROCEDURE: THORACIC SPINE 3 VIEWS 05/21/2025 REASON FOR EXAM: THORACIC BACK PAIN TECHNIQUE: THORACIC SPINE 3 VIEWS COMPARISON: Thoracic spine radiographs 05/11/2024 FINDINGS: Slight anterior wedging of several upper thoracic vertebral bodies, unchanged from 05/11/2024. Thoracic vertebral body heights are otherwise maintained. There is mild leftward curvature of the thoracic spine. Mixc-lu-zcjurfps multilevel disc height loss with endplate osteophyte formation. The visualized lungs are clear. Aortic atherosclerosis. RAD/Thoracic Spine 3 Views IMPRESSION: 1. Mild to moderate multilevel degenerative changes of the thoracic spine. 2. Slight anterior wedging of several upper thoracic vertebral bodies is unchanged from 05/11/2024. Reading Location: [id number] CC: Dr. Yon Salas MD ~ Prescription Eyeglass Maker: Signed [facility] 05-21-2025 Radiology Diagnostic study note [facility] Imaging Services [address] [place] [address] L/S Spine Min 4 Views MR#: [id number] Acct: [id number] Name: DORA BRYANT Rep #: [id number] : 1945 F 80 From: Gabrielle Andersen MD PCP: Dr. Yon Salas MD Status: REG C Study:L/S Spine Min 4 Views Date of Exam: 05/21/25 Exam# [id number] Ordering Dr: Yon Salas MD PROCEDURE: L/S SPINE MIN 4 VIEWS 05/21/2025 REASON FOR EXAM: LOW BACK PAIN TECHNIQUE: L/S SPINE MIN 4 VIEWS COMPARISON: Lumbar spine radiographs on 05/11/2024 FINDINGS: There are 5 uvw-qrc-yxffosv lumbar-type vertebral bodies. Vertebral body heights are maintained. There is a proximally 5 mm anterolisthesis of L5 on S1, unchanged. No pars defect identified on the oblique images. Ildz-yv-hrncoznf multilevel disc height loss and endplate osteophyte formation with facet arthrosis, worst at L3-4 through L5-S1. Aortic atherosclerosis. RAD/L/S Spine Min 4 Views IMPRESSION: Ldfh-vy-pmhqdqks degenerative changes of the lumbar spine, worst from L3-4 through L5-S1 and progressed since radiographs on 05/11/2024. Reading Location: [id number] CC: Dr. Yon Salas MD ~ Prescription Eyeglass Maker: Signed [facility] 05-18-2025 Evaluation note Diagnosis Onset Date Resolution Glucocorticoid deficiency chronic May 18, 2025 10:45am History of pituitary tumor chronic May 18, 2025 10:45am Osteoporosis chronic May 18, 025 10:45am Secondary hypothyroidism chronic May 18, 2025 10:45am [facility] Work Phone: [phone]) 564-723006-27-2025 Progress [facility] [address] [place] [address]. [address] [place], [place] [address] OFFICE VISIT Date of Service: 05/18/25 MR#: [id number] Acct: [id number] Name: DORA BRYANT Rep #: [id number] : 1945 Provider: Dr. Lei Sung MD Age/Sex: 80/F [place] [facility] [place]: Signed Intake Vital Signs 05/18/24 14:53 10/18/24 13:43 05/18/25 10:43 Height 4 ft 11 in 4 ft 11 in 4 ft 11 in Weight: 133 lb BMI 26.9 BP 139/85 H Blood Pressure Location Lt brachial Position Sitting Pulse 74 Pulse Source Monitor Pulse Oximetry (%) 99 Oxygen Delivery Method room air Intake Visit Reasons: 6 M FU Chief Complaint: Osteopororis, hypothyroid, pituitary tumor Director Payment Required: No Accompanied by: Self Is patient in pain?: Yes (Neck, Wrist ) Pain scale (1-10): 3 Allergies nitrofurantoin Allergy (Verified 05/18/25 10:49) Rash Penicillins (PCN) Allergy (Verified 05/18/25 10:49) Hives rofecoxib (From Vioxx) Adverse Reaction (Verified 05/18/25 10:49) Nausea/Vom/Diarrhea Medications ?Medication ?Instructions ?Recorded ?Confirmed ?Type calcium carbonate 1,200 mg PO DAILY supplement 08/19/18 05/18/25 History cholecalciferol (vitamin D3) 50 1,000 unit PO DAILY vi tamin 08/19/18 05/18/25 History mcg (2,000 unit) capsule enalapril maleate 2.5 mg tablet 2.5 mg PO QHS blood pr essure 08/19/18 05/18/25 History denosumab 60 mg/mL subcutaneous 60 mg subcut [id number] #1 mL 05/20/23 05/18/25 Rx syringe (Prolia) estradiol 0.01% (0.1 mg/gram) vaginal .2-3XWEEK 05/18/25 History vaginal cream acetaminophen 500 mg oral powder 500 - 1,000 mg PO Q6H PRN 05/18/25 05/18/25 History packet (Tylenol Extra Strength) hydrocortisone 10 mg tablet 10 mg PO .COMPLEX #180 tab s 05/18/25 05/18/25 Rx levothyroxine 25 mcg tablet 25 mcg PO .1 qd, 2 Wed and Wed05/18/25 05/18/25 Rx thyroid #108 tabs pantoprazole 40 mg tablet,delayed 40 mg PO DAILY Acid Reflux 05/18/25 05/18/25 History release Have you fallen in the past year?: No PFSH Medical History Malaise and fatigue Fibromyalgia Secondary adrenal insufficiency Tumors Pituitary abnormality Osteoporosis Osteoarthritis IBS (irritable bowel syndrome) Hormone deficiency Arthritis Seasonal allergies Lactose intolerance Diverticulosis Carpal tunnel syndrome Hiatal hernia GERD (gastroesophageal reflux disease) Panhypopituitarism HTN (hypertension) Diplopia 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 Benign essential hypertension Surgical History H/O hand surgery History of colonoscopy (~06/2019) History of esophagogastroduodenoscopy (EGD) (~06/2019) Status post bunionectomy History of benign neoplasm of pituitary gland History of cataract extraction History of laparoscopic cholecystectomy History of tubal ligation History of colonoscopy (~2013) History of esophagogastroduodenoscopy (EGD) (~2013) Family History Father Cancer lung Colon cancer Sister Breast cancer Mother Asthma Hypertension CVA (cerebral vascular accident) Unknown Anxiety Asthma Arthritis Breast cancer Colon cancer Diabetes Hypertension Hyperlipidemia Severe allergy Social History Smoking Status: Never smoker alcohol intake: never substance use type: does not use what type of physical activity do you participate in: other frequency: 3-4 times per week HPI HPI Chief Complaint: Osteopororis, hypothyroid, pituitary tumor Details: DORA BRYANT, is a 80 F who presents to the office today for follow up. 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 She had TSHon 08-17-2002 and radiation therapy on 08-20-2011. She has known secondary adrenal insufficiency and hypothyroidism. She takes hydrocortisone and levothyroxine 25 mcg daily. She had an MRI on 04-10-20 that showed no change from previous MRI from 2017. MRI March 2023 showed [address] April, showed partially empty sella. She reports that she is having vision problems and is concerned about her pituitary. She has been on Prolia for 3 years. She has compression fractures. She reports neck pain. ROS Const Constitutional: Positive for fatigue; No weakness or weight change Eyes Eyes: Positive for change in vision ENT ENT: Positive for neck pain Cardio Cardiology: No chest pain at rest, chest pain with exertion or shortness of breath Musc Musculoskeletal: Positive for joint pain, back pain and neck pain; No numbness Neuro Neurology: No weakness or numbness Skin Skin: No wounds Endo Endocrine: Positive for fatigue; No weight change Exam Const General: cooperative, healthy appearing, comfortable, no acute distress, well developed and not cushingoid Nutritional Appearance: well nourished Orientation: alert, awake and oriented x3 HENMT Head: normal to inspection Ears: hearing grossly normal bilaterally Nose: external nose normal Mouth: oral mucosae normal Eyes General: appearance normal, both eyes and all related structures Alignment and Position: alignment normal Periorbital: periorbital findings normal Eyelids: eyelids normal Conjunctivae: conjunctivae normal Neck Neck: normal visual inspection Neck mass: No Thyroid: thyroid normal Lymphatic: no lymphadenopathy noted Chest Chest palpation & inspection: normal inspection of the chest Resp Effort & Inspection: normal respiratory effort, able to speak in complete sentences, symmetric chest movement, no audible wheezes and no cough Cardio Rate: regular rate Rhythm: regular rhythm Musc Other: Reduced ROM neck, SCM muscles tender Skin General: no rashes or lesions noted Neuro General: patient alert, patient awake and patient oriented x3 Cranial Nerves: CN's II-XI intact bilaterally Cognition: normal cognition Speech: speech normal Gait: normal gait Motor: muscle tone normal throughout Extrem General: no edema Psych Appearance: grossly normal Mental Status: mental status grossly normal Mood: congruent mood Affect: normal affect Speech and Movement: speech and movement normal Attitude: cooperative Thought Process: normal Thought Content: normal Judgment: judgment good Office Procedures Injections Procedure performed by: Radha Tidwell Lot number: [id number] 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: [employer] date: 07/22/27 Dose of injection: 1mL Site of injection: Sub-Q Medication Given: Yes Is this a patient provided medication?: No Office Meds Prolia 60 mg/mL subcutaneous syringe Performing Provider: Lei Sung MD Performing Location: [facility] Administered by: Radha Tidwell on 05/18/25 11:01 Dose Route Admin Location Dispensed Lot Number Expiration Date [facility] 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 60 mg subcut Lt Arm 1 mL [id number] 07/22/27 50350-543-78 [employer] Clinical Quality Measures Falls Risk Screening/Assistive Devices Have you fallen in the past year?: No Assessment and Plan Assessment and Plan (1) Glucocorticoid deficiency: Status: Chronic Plan: Continue HC. Labs reviewed. (2) Secondary hypothyroidism: Status: Chronic Plan: Take levothyroxine on an empty stomach with water at least four hours after eating. Then wait 30-60minutes before consuming any other food or beverage, especially coffee. Separate levothyroxine fromvitamins by at least 4 hours. Stop taking any biotin supplement 4 days prior to having labs drawn. TSH is not reliable in pituitary disease. Check T3 and T4 (3) Osteoporosis: Status: Chronic Qualifiers: Osteoporosis type: age-related Presence of current pathological fracture: without current pathological fracture Qualified Code(s): M81.0 - Age-related osteoporosis without current pathological fracture Plan: Continue Prolia (4) History of pituitary tumor: Status: Chronic Plan: Check MRI due to visual symptoms. I have spent [36] minutes today reviewing labs, records and history. Time includes coordinating care, interpretation of tests, discussion with patient's other health care providers via telephone. This also includes time I spent with the patient for exam, treatment plan and education as well as documenting clinical information. 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 Double dose if fever.; 180 tabs 3RF levothyroxine 25 mcg PO .1 qd, 2 Sun and Wed 108 tabs 3RF thyroid Coding Level of Care Code Off vis,est,level 4 Extra Time Spent Extra Time Spent Extra Time Spent: G2211 Diagnoses Glucocorticoid deficiency E27.49 Secondary hypothyroidism E03.8 Age-related osteoporosis without current pathological fracture M81.0 Osteoporosis type: age-related Presence of current pathological fracture: without current pathological fracture History of pituitary tumor Z87.898 Additional Codes Extra Time Spent - Extra Time Spent: G2211 (G2211) 05/18/25 1214 Date _ Lei Camacho Signature: Date (if applicable) CC: Dr. Pastor Garcia MD ~ [facility]06-27-2025 Progress note Author Lei Sung [facility] Note Date/Time May 18, 2025 12:1 4pm [facility] [address] [place] [address] OFFICE VISIT Date of Service: 05/18/25 MR#: [id number] Acct: [id number] Name: DORA BRYANT Rep #: [id number] : 1945 Provider: Dr. Lei Sung MD Age/Sex: 80/F [place] [facility] [place]: Signed Intake Vital Signs 05/18/24 14:53 10/18/24 13:43 05/18/25 10:43 Height 4 ft 11 in 4 ft 11 in 4 ft 11 in Weight: 133 lb BMI 26.9 BP 139/85 H Blood Pressure Location Lt brachial Position Sitting Pulse 74 Pulse Source Monitor Pulse Oximetry (%) 99 Oxygen Delivery Method room air Intake Visit Reasons: 6 M FU Chief Complaint: Osteopororis, hypothyroid, pituitary tumor Director Payment Required: No Accompanied by: Self Is patient in pain?: Yes (Neck, Wrist ) Pain scale (1-10): 3 Allergies nitrofurantoin Allergy (Verified 05/18/25 10:49) Rash Penicillins (PCN) Allergy (Verified 05/18/25 10:49) Hives rofecoxib (From Vioxx) Adverse Reaction (Verified 05/18/25 10:49) Nausea/Vom/Diarrhea Medications ?Medication ?Instructions ?Recorded ?Confirmed ?Type calcium carbonate 1,200 mg PO DAILY supplement 08/19/18 05/18/25 History cholecalciferol (vitamin D3) 50 1,000 unit PO DAILY vi tamin 08/19/18 05/18/25 History mcg (2,000 unit) capsule enalapril maleate 2.5 mg tablet 2.5 mg PO QHS blood pr essure 08/19/18 05/18/25 History denosumab 60 mg/mL subcutaneous 60 mg subcut [id number] #1 mL 05/20/23 05/18/25 Rx syringe (Prolia) estradiol 0.01% (0.1 mg/gram) vaginal .2-3XWEEK 05/18/25 History vaginal cream acetaminophen 500 mg oral powder 500 - 1,000 mg PO Q6H PRN 05/18/25 05/18/25 History packet (Tylenol Extra Strength) hydrocortisone 10 mg tablet 10 mg PO .COMPLEX #180 tab s 05/18/25 05/18/25 Rx levothyroxine 25 mcg tablet 25 mcg PO .1 qd, 2 Wed and Wed05/18/25 05/18/25 Rx thyroid #108 tabs pantoprazole 40 mg tablet,delayed 40 mg PO DAILY Acid Reflux 05/18/25 05/18/25 History release Have you fallen in the past year?: No PFSH Medical History Malaise and fatigue Fibromyalgia Secondary adrenal insufficiency Tumors Pituitary abnormality Osteoporosis Osteoarthritis IBS (irritable bowel syndrome) Hormone deficiency Arthritis Seasonal allergies Lactose intolerance Diverticulosis Carpal tunnel syndrome Hiatal hernia GERD (gastroesophageal reflux disease) Panhypopituitarism HTN (hypertension) Diplopia 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 Benign essential hypertension Surgical History H/O hand surgery History of colonoscopy (~06/2019) History of esophagogastroduodenoscopy (EGD) (~06/2019) Status post bunionectomy History of benign neoplasm of pituitary gland History of cataract extraction History of laparoscopic cholecystectomy History of tubal ligation History of colonoscopy (~2013) History of esophagogastroduodenoscopy (EGD) (~2013) Family History Father Cancer lung Colon cancer Sister Breast cancer Mother Asthma Hypertension CVA (cerebral vascular accident) Unknown Anxiety Asthma Arthritis Breast cancer Colon cancer Diabetes Hypertension Hyperlipidemia Severe allergy Social History Smoking Status: Never smoker alcohol intake: never substance use type: does not use what type of physical activity do you participate in: other frequency: 3-4 times per week HPI HPI Chief Complaint: Osteopororis, hypothyroid, pituitary tumor Details: DORA BRYANT, is a 80 F who presents to the office today for follow up. 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 She had TSHon 08-17-2002 and radiation therapy on 08-20-2011. She has known secondary adrenal insufficiency and hypothyroidism. She takes hydrocortisone and levothyroxine 25 mcg daily. She had an MRI on 04-10-20 that showed no change from previous MRI from 2016. MRI March 2023 showed [address] April, showed partially empty sella. She reports that she is having vision problems and is concerned about her pituitary. She has been on Prolia for 3 years. She has compression fractures. She reports neck pain. ROS Const Constitutional: Positive for fatigue; No weakness or weight change Eyes Eyes: Positive for change in vision ENT ENT: Positive for neck pain Cardio Cardiology: No chest pain at rest, chest pain with exertion or shortness of breath Musc Musculoskeletal: Positive for joint pain, back pain and neck pain; No numbness Neuro Neurology: No weakness or numbness Skin Skin: No wounds Endo Endocrine: Positive for fatigue; No weight change Exam Const General: cooperative, healthy appearing, comfortable, no acute distress, well developed and not cushingoid Nutritional Appearance: well nourished Orientation: alert, awake and oriented x3 HENIA Head: normal to inspection Ears: hearing grossly normal bilaterally Nose: external nose normal Mouth: oral mucosae normal Eyes General: appearance normal, both eyes and all related structures Alignment and Position: alignment normal Periorbital: periorbital findings normal Eyelids: eyelids normal Conjunctivae: conjunctivae normal Neck Neck: normal visual inspection Neck mass: No Thyroid: thyroid normal Lymphatic: no lymphadenopathy noted Chest Chest palpation & inspection: normal inspection of the chest Resp Effort & Inspection: normal respiratory effort, able to speak in complete sentences, symmetric chest movement, no audible wheezes and no cough Cardio Rate: regular rate Rhythm: regular rhythm Musc Other: Reduced ROM neck, SCM muscles tender Skin General: no rashes or lesions noted Neuro General: patient alert, patient awake and patient oriented x3 Cranial Nerves: CN's II-XI intact bilaterally Cognition: normal cognition Speech: speech normal Gait: normal gait Motor: muscle tone normal throughout Extrem General: no edema Psych Appearance: grossly normal Mental Status: mental status grossly normal Mood: congruent mood Affect: normal affect Speech and Movement: speech and movement normal Attitude: cooperative Thought Process: normal Thought Content: normal Judgment: judgment good Office Procedures Injections Procedure performed by: Radha Tidwell Lot number: [id number] 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: [employer] date: 07/22/27 Dose of injection: 1mL Site of injection: Sub-Q Medication Given: Yes Is this a patient provided medication?: No Office Meds Prolia 60 mg/mL subcutaneous syringe Performing Provider: Lei Sung MD Performing Location: [facility] Administered by: Radha Tidwell on 05/18/25 11:01 Dose Route Admin Location Dispensed Lot Number Expiration Date [facility] 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 60 mg subcut Lt Arm 1 mL [id number] 07/22/27 77385-553-88 [employer] Clinical Quality Measures Falls Risk Screening/Assistive Devices Have you fallen in the past year?: No Assessment and Plan Assessment and Plan (1) Glucocorticoid deficiency: Status: Chronic Plan: Continue HC. Labs reviewed. (2) Secondary hypothyroidism: Status: Chronic Plan: Take levothyroxine on an empty stomach with water at least four hours after eating. Then wait 30-60 minutes before consuming any other food or beverage, especially coffee. Separate levothyroxine from vitamins by at least 4 hours. Stop taking any biotin supplement 4 days prior to having labs drawn. TSH is not reliable in pituitary disease. Check T3 and T4 (3) Osteoporosis: Status: Chronic Qualifiers: Osteoporosis type: age-related Presence of current pathological fracture: without current pathological fracture Qualified Code(s): M81.0 - Age-related osteoporosis without current pathological fracture Plan: Continue Prolia (4) History of pituitary tumor: Status: Chronic Plan: Check MRI due to visual symptoms. I have spent [36] minutes today reviewing labs, records and history. Time includes coordinating care, interpretation of tests, discussion with patient's other health care providers via telephone. This also includes time I spent with the patient for exam, treatment plan and education as well as documenting clinical information. 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 She also reports a funny feeling in her head. 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 [facility] Medical History Arthritis Carpal tunnel syndrome Diplopia Diverticulosis Fibromyalgia GERD (gastroesophageal reflux disease) Hiatal hernia Hormone deficiency HTN (hypertension) IBS (irritable bowel syndrome) Lactose intolerance Malaise and fatigue Osteoarthritis Osteoporosis Panhypopituitarism Pituitary abnormality Seasonal allergies Tumors Home Medications calcium carbonate 600 mg calcium (1,500 mg) tablet 600 mg PO DAILY supplement 08/19/18 [History Last Taken 08/18/18] cholecalciferol (vitamin D3) 50 mcg (2,000 unit) capsule 1,000 unit PO DAILY 08/19/18 [History Last Taken 08/18/18] enalapril maleate 2.5 mg tablet 2.5 mg PO QHS 08/19/18 [History Last Taken 08/18/18] omeprazole 20 mg capsule,delayed release 20 mg PO DAILY 08/19/18 [History Last Taken 07/17/19 05:40] nitroglycerin 0.4 mg sublingual tablet 0.4 mg sublingual PRN PRN Cardiac/Chest Pain ##30 08/20/18 [Rx Last Taken Unknown] conjugated estrogens 0.625 mg/gram vaginal cream (Premarin) 0.3125 mg vaginal 2XW 06/26/19 [History Last Taken Unknown] denosumab 60 mg/mL subcutaneous syringe (Prolia) 60 mg subcut [id number] #1 mL 04/30/22 [Rx Last Taken Unknown] levothyroxine 25 mcg tablet 25 mcg PO DAILY thyroid #90 tabs 04/30/22 [Rx Last Taken Unknown] hydrocodone-acetaminophen 5-325mg 5mg-325mg 1 tab PO Q6H PRN PRN Pain 3 days #10TABLETS 06/13/22 [Rx Last Taken Unknown] hydrocortisone 10 mg tablet 10 mg PO .COMPLEX #180 tabs 12/07/22 [Rx Last Taken Unknown] Allergy/AdvReac Type Severity Reaction Status Date / Time nitrofurantoin Allergy Rash Verified 04/01/23 17:17 Penicillins [PCN] Allergy Hives Verified 04/01/23 17:17 rofecoxib [From Vioxx] AdvReac Nausea/Vom/ Verified 04/01/23 17:17 Diarrhea Family History Father Cancer lung Colon cancer Sister Breast cancer Mother Asthma Hypertension CVA (cerebral vascular accident) Unknown Anxiety Asthma Arthritis Breast cancer Colon cancer Diabetes Hypertension Hyperlipidemia Severe allergy Surgical History H/O hand surgery History of benign neoplasm of pituitary gland History of cataract extraction History of colonoscopy (~2013) History of colonoscopy (~06/2019) History of esophagogastroduodenoscopy (EGD) (~2013) History of esophagogastroduodenoscopy (EGD) (~06/2019) History of laparoscopic cholecystectomy History of tubal ligation Status post bunionectomy Social History Smoking Status: Never smoker alcohol intake: never substance use type: does not use what type of physical activity do you participate in: other frequency: 3-4 times per week ROS ROS Narrative Pertinent positives and pertinent negatives as noted in HPI. All other systems were reviewed and are negative Vital Signs Vital Signs Vital Signs: 04/01/23 17:15 Temperature 97.8 F Temperature Source Temporal Pulse Rate 88 Respiratory Rate 16 Blood Pressure 184/103 H Blood Pressure Mean 130 Pulse Ox 98 Oxygen Delivery Method Room Air Weight Weight: 59.8 kg Body Mass Index (BMI) 26.5 Physical Exam Narrative Physical exam: General: Well-nourished, well-developed. Head: Normocephalic, atraumatic, no tenderness Eyes: Vision is grossly intact. EOMI ENT, no trauma, moist mucous membranes, no rhinorrhea Neck: Nontender, No thyromegaly. CVS: Regular rate and rhythm. S1-S2 present. No murmur, gallop or rub. Respiratory : clear to auscultation bilaterally, chest wall nontender Abdomen: Soft, nontender, nondistended, normal bowel sounds, no masses : Deferred Back: Nontender, no CVA tenderness, no midline spinal tenderness, deformities, step-offs Extremities: Nontender full range of motion, no trauma Skin: Normal color, no trauma, abrasions Neuro: Alert, oriented, cranial nerves II through XII grossly intact. Psychiatry: Normal mood. Normal affect. Not depressed. Not anxious. Results Lab / Micro Data Attestation: I reviewed the patient's lab results. Result Diagrams: 04/01/23 18:20 04/01/23 18:20 Labs: Laboratory Results - last 24 hr 04/01/23 18:20: WBC 11.4 H, RBC 4.73, Hgb 14.9, Hct 46.3, MCV 97.9, MCH 31.5, MCHC 32.2, RDW Std Deviation 52.8 H, RDW Coeff of Marina 14.6, Plt Count TNP, MPV 10.8, Immature Gran % (Auto) 0.400, Neut % (Auto) 73.0 H, Lymph % (Auto) 18.3 L,Glynn % (Auto) 6.7, Eos % (Auto) 0.8, Baso % (Auto) 0.8, Absolute Neuts (auto) 8.3 H, Absolute Lymphs (auto) 2.08, Nucleated RBC % 0, Platelet Estimate ADEQUATE, RBC Morphology N CHROM, Anisocytosis RARE, Macrocytosis RARE 04/01/23 18:20: Sodium 138, Potassium 6.0 H*, Chloride 111 H, Carbon Dioxide 25.0, Anion Gap 2 L, BUN 20 H, Creatinine 1.08 H, Estim Creat Clear Calc 42.49, Est GFR (MDRD) Af Amer 63, Est GFR (MDRD) Non-Af 52 L, BUN/Creatinine Ratio 18.5, Glucose 92, Calcium 9.5 04/01/23 19:10: PT 13.5, INR 1.0, APTT 27.[address] 04/01/23 18:30 IMPRESSION: There are no acute findings. Chronic involutional changes of the brain. 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 Chronic involutional changes of the brain. Upon my personal head CT image review: I agree with radiologist interpretation Lipid profile and A1c ordered. Daily aspirin. Will hold off high intensity statin until MRI; and lipid profile is available Permissive hypertension. Control blood pressure with labetalol for systolic blood pressure of more than 220 or diastolic blood pressure of more than 120. MRI/MRA of head; brain; and neck. Echocardiogram ordered. Hypertension Blood pressure is not within goal. However we will hold off home enalapril for permissive hypertension. Trend blood pressures History of potential adenoma with resection/adrenal insufficiency Home hydrocortisone continued Follow MRI. Hyperkalemia Reported a potassium of 6.0 in the ED Blood was hemolyzed. Repeat ordered at the ED. Follow. Follow EKG obtained inthe ED CKD stage IIIa Stable DVT prophylaxis: SCDs ordered Charges/Coding Visit Charges Inpatient E&M: 73793 Init Hosp L3 04/01/232049 <Electronically signed by Erik Yoder MD> Cosigner Signature (if applicable): CC: Dr. Pastor Garcia MD; Dr. Erik Yoder MD~ Signed [facility] Work Phone: 1(190) 175-500905-11-2023 History and physical note Author Dr. Yoder [facility] April 01, 2023 8:50pm Note Date/Time April 01, 2023 8:00p [facility] Medical Records Department [address] [place] [address] H&P Exam - Hospitalist 04/01/231999 MR#: [id number] Acct: [id number] Name: DORA BRYANT Rep #:[id number] : 1945 77 From: Erik Yoder MD PCP: Dr. Pastor Garcia MD Status :REG ER Location: ED HPI - General General Date of Admission: 04/01/23 Date of Service: 04/01/23 Chief Complaint: Vision problem HPI Narrative DORA BRYANT, is a 77 F with a significant history of pituitary tumor who presents emergency department with vision problem. Patient report that a day before presentation she saw things stacked on each other. On the day of presentation patient again started and started on the chart. She reported that for the past months she has had trouble with her eyes focusing. 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 She also reports a funny feeling in her head. 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 [facility] Medical History Arthritis Carpal tunnel syndrome Diplopia Diverticulosis Fibromyalgia GERD (gastroesophageal reflux disease) Hiatal hernia Hormone deficiency HTN (hypertension) IBS (irritable bowel syndrome) Lactose intolerance Malaise and fatigue Osteoarthritis Osteoporosis Panhypopituitarism Pituitary abnormality Seasonal allergies Tumors Home Medications calcium carbonate 600 mg calcium (1,500 mg) tablet 600 mg PO DAILY supplement 08/19/18 [History Last Taken 08/18/18] cholecalciferol (vitamin D3) 50 mcg (2,000 unit) capsule 1,000 unit PO DAILY 08/19/18 [History Last Taken 08/18/18] enalapril maleate 2.5 mg tablet 2.5 mg PO QHS 08/19/18 [History Last Taken 08/18/18] omeprazole 20 mg capsule,delayed release 20 mg PO DAILY 08/19/18 [History Last Taken 07/17/19 05:40] nitroglycerin 0.4 mg sublingual tablet 0.4 mg sublingual PRN PRN Cardiac/Chest Pain ##30 08/20/18 [Rx Last Taken Unknown] conjugated estrogens 0.625 mg/gram vaginal cream (Premarin) 0.3125 mg vaginal 2XW 06/26/19 [History Last Taken Unknown] denosumab 60 mg/mL subcutaneous syringe (Prolia) 60 mg subcut [id number] #1 mL 04/30/22 [Rx Last Taken Unknown] levothyroxine 25 mcg tablet 25 mcg PO DAILY thyroid #90 tabs 04/30/22 [Rx Last Taken Unknown] hydrocodone-acetaminophen 5-325mg 5mg-325mg 1 tab PO Q6H PRN PRN Pain 3 days #10TABLETS 06/13/22 [Rx Last Taken Unknown] hydrocortisone 10 mg tablet 10 mg PO .COMPLEX #180 tabs 12/07/22 [Rx Last Taken Unknown] Allergy/AdvReac Type Severity Reaction Status Date / Time nitrofurantoin Allergy Rash Verified 04/01/23 17:17 Penicillins [PCN] Allergy Hives Verified 04/01/23 17:17 rofecoxib [From Vioxx] AdvReac Nausea/Vom/ Verified 04/01/23 17:17 Diarrhea Family History Father Cancer lung Colon cancer Sister Breast cancer Mother Asthma Hypertension CVA (cerebral vascular accident) Unknown Anxiety Asthma Arthritis Breast cancer Colon cancer Diabetes Hypertension Hyperlipidemia Severe allergy Surgical History H/O hand surgery History of benign neoplasm of pituitary gland History of cataract extraction History of colonoscopy (~2013) History of colonoscopy (~06/2019) History of esophagogastroduodenoscopy (EGD) (~2013) History of esophagogastroduodenoscopy (EGD) (~06/2019) History of laparoscopic cholecystectomy History of tubal ligation Status post bunionectomy Social History Smoking Status: Never smoker alcohol intake: never substance use type: does not use what type of physical activity do you participate in: other frequency: 3-4 times per week ROS ROS Narrative Pertinent positives and pertinent negatives as noted in HPI. All other systems were reviewed and are negative Vital Signs Vital Signs Vital Signs: 04/01/23 17:15 Temperature 97.8 F Temperature Source Temporal Pulse Rate 88 Respiratory Rate 16 Blood Pressure 184/103 H Blood Pressure Mean 130 Pulse Ox 98 Oxygen Delivery Method Room Air Weight Weight: 59.8 kg Body Mass Index (BMI) 26.5 Physical Exam Narrative Physical exam: General: Well-nourished, well-developed. Head: Normocephalic, atraumatic, no tenderness Eyes: Vision is grossly intact. EOMI ENT, no trauma, moist mucous membranes, no rhinorrhea Neck: Nontender, No thyromegaly. CVS: Regular rate and rhythm. S1-S2 present. No murmur, gallop or rub. Respiratory : clear to auscultation bilaterally, chest wall nontender Abdomen: Soft, nontender, nondistended, normal bowel sounds, no masses : Deferred Back: Nontender, no CVA tenderness, no midline spinal tenderness, deformities, step-offs Extremities: Nontender full range of motion, no trauma Skin: Normal color, no trauma, abrasions Neuro: Alert, oriented, cranial nerves II through XII grossly intact. Psychiatry: Normal mood. Normal affect. Not depressed. Not anxious. Results Lab / Micro Data Attestation: I reviewed the patient's lab results. Result Diagrams: 04/01/23 18:20 04/01/23 18:20 Labs: Laboratory Results - last 24 hr 04/01/23 18:20: WBC 11.4 H, RBC 4.73, Hgb 14.9, Hct 46.3, MCV 97.9, MCH 31.5, MCHC 32.2, RDW Std Deviation 52.8 H, RDW Coeff of Marina 14.6, Plt Count TNP, MPV 10.8, Immature Gran % (Auto) 0.400, Neut % (Auto) 73.0 H, Lymph % (Auto) 18.3 L,Glynn % (Auto) 6.7, Eos % (Auto) 0.8, Baso % (Auto) 0.8, Absolute Neuts (auto) 8.3 H, Absolute Lymphs (auto) 2.08, Nucleated RBC % 0, Platelet Estimate ADEQUATE, RBC Morphology N CHROM, Anisocytosis RARE, Macrocytosis RARE 04/01/23 18:20: Sodium 138, Potassium 6.0 H*, Chloride 111 H, Carbon Dioxide 25.0, Anion Gap 2 L, BUN 20 H, Creatinine 1.08 H, Estim Creat Clear Calc 42.49, Est GFR (MDRD) Af Amer 63, Est GFR (MDRD) Non-Af 52 L, BUN/Creatinine Ratio 18.5, Glucose 92, Calcium 9.5 04/01/23 19:10: PT 13.5, INR 1.0, APTT 27.[address] 04/01/23 18:30 IMPRESSION: There are no acute findings. Chronic involutional changes of the brain. 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 Chronic involutional changes of the brain. Upon my personal head CT image review: I agree with radiologist interpretation Lipid profile and A1c ordered. Daily aspirin. Will hold off high intensity statin until MRI; and lipid profile is available Permissive hypertension. Control blood pressure with labetalol for systolic blood pressure of more than 220 or diastolic blood pressure of more than 120. MRI/MRA of head; brain; and neck. Echocardiogram ordered. Hypertension Blood pressure is not within goal. However we will hold off home enalapril for permissive hypertension. Trend blood pressures History of potential adenoma with resection/adrenal insufficiency Home hydrocortisone continued Follow MRI. Hyperkalemia Reported a potassium of 6.0 in the ED Blood was hemolyzed. Repeat ordered at the ED. Follow. Follow EKG obtained inthe ED CKD stage IIIa Stable DVT prophylaxis: SCDs ordered Charges/Coding Visit Charges Inpatient E&M: 19274 Init Hosp L3 04/01/232049 <Electronically signed by Erik Yoder MD> Cosigner Signature (if applicable): CC: Dr. Pastor Garcia MD; Dr. Erik Yoder MD~ Signed [facility] Work Phone: 1(305) 759-755205-11-[address] Anaya [facility] April 01, 2023 9:48pm Note Date/Time April 01, 2023 6:07p m [facility] Medical Records Department [address] [place] [address] Emergency Department Summary 04/01/23 MR#: [id number] Acct: [id number] Name: DORA BRYANT Rep #:[id number] : 1945 77 From: Violeta MANDUJANO PCP: Dr. Pastor Garcia MD Status :ADM SARIAH Location: [place] [address] HPI <DELBERT Jauregui - Last Filed: 04/01/23 20:55> History of Present Illness Chief Complaint: Neuro S/Sx Narrative Narrative: Patient presenting today due to visual changes that have been occurring intermittently over the past month. She states that at times it feels like her eyes cannot focus on an object, and other times she notices two of the same image will be stacked on top of each other. The last episode occurred this afternoon. She states that she has a history of a pituitary tumor that is beingmonitored by an polymer tester, she has not had any imaging in the past 3 yearsbecause she does not like the contrast for the MRI. 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 She states that this did go away on its own. She has had intermittent headaches for the last several months. She states that she has not been evaluated for this yet because her has been in declining health and she has been attributing to her symptoms distress. She denies any fever, chills, dizziness, weakness, chest pain, shortness of breath. <Dr. Cory Anaya, - Last Filed: 04/01/23 21:48> Narrative Narrative: Patient presenting today due to visual changes that have been occurring intermittently over the past month. She states that at times it feels like her eyes cannot focus on an object, and other times she notices two of the same image will be stacked on top of each other. The last episode occurred this afternoon. The patient is currently asymptomatic. Last known well was this afternoon at approximately 1 PM. She states that she has a history of a pituitary tumor that is being monitored by an polymer tester, she has not had any imaging in the past 3 years because she does not like the contrast for the MRI. 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 She states that this did go away on its own. She has had intermittent headaches for the last several months. She states that she has notbeen evaluated for this yet because her has been in declining health andshe has been attributing to her symptoms distress. She denies any fever, chills, dizziness, weakness, chest pain, shortness of breath. [facility] <DELBERT Jauregui - Last Filed: 04/01/23 20:55> [facility] Medical History Arthritis Carpal tunnel syndrome Diplopia Diverticulosis Fibromyalgia GERD (gastroesophageal reflux disease) Hiatal hernia Hormone deficiency HTN (hypertension) IBS (irritable bowel syndrome) Lactose intolerance Malaise and fatigue Osteoarthritis Osteoporosis Panhypopituitarism Pituitary abnormality Seasonal allergies Tumors Home Medications calcium carbonate 600 mg calcium (1,500 mg) tablet 600 mg PO DAILY supplement 08/19/18 [History Last Taken 08/18/18] cholecalciferol (vitamin D3) 50 mcg (2,000 unit) capsule 1,000 unit PO DAILY 08/19/18 [History Last Taken 08/18/18] enalapril maleate 2.5 mg tablet 2.5 mg PO QHS 08/19/18 [History Last Taken 08/18/18] omeprazole 20 mg capsule,delayed release 20 mg PO DAILY 08/19/18 [History Last Taken 07/17/19 05:40] nitroglycerin 0.4 mg sublingual tablet 0.4 mg sublingual PRN PRN Cardiac/Chest Pain ##30 08/20/18 [Rx Last Taken Unknown] conjugated estrogens 0.625 mg/gram vaginal cream (Premarin) 0.3125 mg vaginal 2XW 06/26/19 [History Last Taken Unknown] denosumab 60 mg/mL subcutaneous syringe (Prolia) 60 mg subcut [id number] #1 mL 04/30/22 [Rx Last Taken Unknown] levothyroxine 25 mcg tablet 25 mcg PO DAILY thyroid #90 tabs 04/30/22 [Rx Last Taken Unknown] hydrocodone-acetaminophen 5-325mg 5mg-325mg 1 tab PO Q6H PRN PRN Pain 3 days #10TABLETS 06/13/22 [Rx Last Taken Unknown] hydrocortisone 10 mg tablet 10 mg PO .COMPLEX #180 tabs 12/07/22 [Rx Last Taken Unknown] Allergy/AdvReac Type Severity Reaction Status Date / Time nitrofurantoin Allergy Rash Verified 04/01/23 17:17 Penicillins [PCN] Allergy Hives Verified 04/01/23 17:17 rofecoxib [From Vioxx] AdvReac Nausea/Vom/ Verified 04/01/23 17:17 Diarrhea Family History Father Cancer lung Colon cancer Sister Breast cancer Mother Asthma Hypertension CVA (cerebral vascular accident) Unknown Anxiety Asthma Arthritis Breast cancer Colon cancer Diabetes Hypertension Hyperlipidemia Severe allergy Surgical History H/O hand surgery History of benign neoplasm of pituitary gland History of cataract extraction History of colonoscopy (~2013) History of colonoscopy (~06/2019) History of esophagogastroduodenoscopy (EGD) (~2013) History of esophagogastroduodenoscopy (EGD) (~06/2019) History of laparoscopic cholecystectomy History of tubal ligation Status post bunionectomy Social History Smoking Status: Never smoker alcohol intake: never substance use type: does not use what type of physical activity do you participate in: other frequency: 3-4 times per week ROS <DELBERT Jauregui - Last Filed: 04/01/23 20:55> ROS ED Constitutional Constitutional ED: Denies chills or fever(s) Eyes Eyes: Reports change in vision Cardiovascular Cardiovascular: Denies chest pain or palpitations Respiratory/Chest Respiratory/Chest: Denies cough, dyspnea, tachypnea or wheezing Gastrointestinal Gastrointestinal: Denies abdominal pain, constipation, diarrhea, nausea or vomiting Genitourinary Genitourinary ED: Denies dysuria, hematuria or urinary urgency Musculoskeletal Musculoskeletal: Denies arthralgias, back pain, myalgias or neck pain Integumentary Denies abscess, Abrasions or rash Neurologic Neurologic: Denies confusion, dizziness or paresthesias Psychiatric Psychiatric: Denies anxiety, depression, suicidal ideation or suicidal thoughts Allergic/Immunologic Allergic/Immunologic ED: Denies lip swelling, mouth swelling or urticaria EXAM <DELBERT Jauregui - Last Filed: 04/01/23 20:55> Physical Exam Const Vital Signs: 04/01/23 17:15 Temperature 97.8 F Temperature Source Temporal Pulse Rate 88 Respiratory Rate 16 Blood Pressure 184/103 H Blood Pressure Mean 130 Pulse Ox 98 Oxygen Delivery Method Room Air Positive well nourished, well developed and no apparent distress General Appearance ED: well developed HEENT Reports normocephalic and head/scalp atraumatic Mouth ED: Yes moist mucous membranes normal Eyes PERRL and EOMs intact bilaterally Neck full ROM and supple Chest Wall inspection of chest normal Resp normal respiratory effort and clear to auscultation bilaterally Cardio regular rate and regular rhythm GI soft to palpation, non-tender, non-distended and no masses Back/Spine normal ROM and normal to inspection Extremity normal to inspection and full ROM Neuro oriented x3, CN's II-XII intact bilaterally, moves all extremities, no focal motor deficits and no sensory deficits noted Sensorium / Orientation: awake and alert Coordination / Balance: [id number] test normal, bpeh-wm-[id number] test normal andRomberg test negative Speech: speech normal Motor Exam: strength 5/5 throughout Psych mental status grossly normal and thought process normal Skin no rashes or lesions noted and no wounds <Dr. Cory Anaya DO - Last Filed: 04/01/23 21:48> Physical Exam Const Vital Signs: 04/01/23 17:15 Temperature 97.8 F Temperature Source Temporal Pulse Rate 88 Respiratory Rate 16 Blood Pressure 184/103 H Blood Pressure Mean 130 Pulse Ox 98 Oxygen Delivery Method Room Air MDM <DELBERT Jauregui - Last Filed: 04/01/23 20:55> [facility] Narrative Medical decision making narrative: Patient presenting today with intermittent visual changes that she has had over the past month. She states she has not seen any provider for this to date because she has been caring for her sick . Her last episode occurred this afternoon. She is not having any current visual symptoms. She reports a history of a pituitary tumor, CT scan from patient's last visit in May does notshow any pituitary mass. CT scan obtained today to rule out any intracranial abnormality and also does not show any pituitary mass. There are concerns for TIA. She denies any personal history of a TIA or stroke but states that her mother had several TIAs as well as a stroke. Labs obtained to rule out leukocytosis, anemia, electrolyte abnormality, ANUP. Potassium is elevated, however the specimen is hemolyzed. Repeat BMP will be obtained as well as an EKG. EKG does not show any hyperkalemic changes. I spoke to the hospitalist in regards to admission for further work-up and patient will be admitted to the hospital in stable condition and is comfortable with plan. Lab Data Attestation: I reviewed the patient's lab results. Lab results narrative: WBC 11.4, potassium 6.0, anion gap 2, BUN 20, creatinine 1.08, GFR 52 Labs: Laboratory Results - last 24 hr 04/01/23 04/01/23 04/01/23 18:20 18:20 19:10 WBC 11.4 H RBC 4.73 Hgb 14.9 Hct 46.3 MCV 97.9 MCH 31.5 MCHC 32.2 RDW Std Deviation 52.8 H RDW Coeff of Marina 14.6 Plt Count TNP MPV 10.8 Immature Gran % (Auto) 0.400 Neut % (Auto) 73.0 H Lymph % (Auto) 18.3 L Glynn % (Auto) 6.7 Eos % (Auto) 0.8 Baso % (Auto) 0.8 Absolute Neuts (auto) 8.3 H Absolute Lymphs (auto) 2.08 Nucleated RBC % 0 Platelet Estimate ADEQUATE RBC Morphology N CHROM Anisocytosis RARE Macrocytosis RARE PT 13.5 INR 1.0 APTT 27.0 Sodium 138 Potassium 6.0 H* Chloride 111 H Carbon Dioxide 25.0 Anion Gap 2 L BUN 20 H Creatinine 1.08 H Estim Creat Clear Calc 42.49 Est GFR (MDRD) Af Amer 63 Est GFR (MDRD) Non-Af 52 L BUN/Creatinine Ratio 18.5 Glucose 92 Calcium 9.5 Radiography Diagnostic Testing: Clinical Impression(s) from Imaging Studies Brain CT 04/01/23 18:30 IMPRESSION: There are no acute findings. Chronic involutional changes of the brain. Electronically Signed: Noe Castro MD at 19:16 EDT , CT also reviewed and interpreted by attending ED physician. EKG Initial EKG: Comments: 70 bpm, normal sinus rhythm, no ST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 08/05/2011 04/22/2021 Cholecystitis 07/15/2011 10/10/2013 Overview: [facility] 02/2011- partial CBD obs s/p lap rishi Angioma: tongue and other sites 07/07/2011 04/15/2016 [...] of this encounter (statuses as of 07/15/2022) [facility]01-[facility]2021 History of Past illness Narrative* Problem Noted Date Resolved Date Acute bilateral low back pain without sciatica 0 11/26/2020 01/23/2021 Contact dermatitis and other eczema due to other specified agent 10/07/2012 04/15/2016 Eczematous dermatitis 10/07/2012 04/15/2016 Xerosis cutis 10/07/2012 04/15/2016 Postinflammatory skin changes 10/07/2012 Pituitary adenoma 08/05/2011 04/22/2021 Cholecystitis 07/15/2011 10/10/2013 Overview: [facility] 02/2011- partial CBD obs s/p lap rishi Angioma: tongue and other sites 07/07/2011 04/15/2016 [...] of this encounter (statuses as of 07/17/2022) [facility]01-[facility]2021 History of Past illness Narrative* Problem Noted Date Resolved Date Acute bilateral low back pain without sciatica 0 11/26/2020 01/23/2021 Contact dermatitis and other eczema due to other specified agent 10/07/2012 04/15/2016 Eczematous dermatitis 10/07/2012 04/15/2016 Xerosis cutis 10/07/2012 04/15/2016 Postinflammatory skin changes 10/07/2012 Pituitary adenoma 08/05/2011 04/22/2021 Cholecystitis 07/15/2011 10/10/2013 Overview: [facility] 02/2011- partial CBD obs s/p lap rishi Angioma: tongue and other sites 07/07/2011 04/15/2016 [...] of this encounter (statuses as of 08/25/2022) [facility]01-[facility]-2021 History of Past illness Narrative* Problem Noted Date Resolved Date Acute bilateral low back pain without sciatica 0 11/26/2020 01/23/2021 Contact dermatitis and other eczema due to other specified agent 10/07/2012 04/15/2016 Eczematous dermatitis 10/07/2012 04/15/2016 Xerosis cutis 10/07/2012 04/15/2016 Postinflammatory skin changes 10/07/2012 Pituitary adenoma 08/05/2011 04/22/2021 Cholecystitis 07/15/2011 10/10/2013 Overview: [facility] 02/2011- partial CBD obs s/p lap rishi Angioma: tongue and other sites 07/07/2011 04/15/2016 [...] of this encounter (statuses as of 10/21/2022) [facility]01-[facility]-2021 History of Past illness Narrative* Problem Noted Date Resolved Date Acute bilateral low back pain without sciatica 0 11/26/2020 01/23/2021 Contact dermatitis and other eczema due to other specified agent 10/07/2012 04/15/2016 Eczematous dermatitis 10/07/2012 04/15/2016 Xerosis cutis 10/07/2012 04/15/2016 Postinflammatory skin changes 10/07/2012 Pituitary adenoma 08/05/2011 04/22/2021 Cholecystitis 07/15/2011 10/10/2013 Overview: [facility] 02/2011- partial CBD obs s/p lap rishi Angioma: tongue and other sites 07/07/2011 04/15/2016 [...] of this encounter (statuses as of 10/21/2022) [facility]01-[facility]-2021 History of Past illness Narrative* Problem Noted Date Resolved Date Acute bilateral low back pain without sciatica 0 11/26/2020 01/23/2021 Contact dermatitis and other eczema due to other specified agent 10/07/2012 04/15/2016 Eczematous dermatitis 10/07/2012 04/15/2016 Xerosis cutis 10/07/2012 04/15/2016 Postinflammatory skin changes 10/07/2012 Pituitary adenoma 08/05/2011 04/22/2021 Cholecystitis 07/15/2011 10/10/2013 Overview: [facility] 02/2011- partial CBD obs s/p lap rishi Angioma: tongue and other sites 07/07/2011 04/15/2016 [...] of this encounter (statuses as of 11/15/2022) [facility]01-[facility]-2021 History of Past illness Narrative* Problem Noted Date Resolved Date Acute bilateral low back pain without sciatica 0 11/26/2020 01/23/2021 Contact dermatitis and other eczema due to other specified agent 10/07/2012 04/15/2016 Eczematous dermatitis 10/07/2012 04/15/2016 Xerosis cutis 10/07/2012 04/15/2016 Postinflammatory skin changes 10/07/2012 Pituitary adenoma 08/05/2011 04/22/2021 Cholecystitis 07/15/2011 10/10/2013 Overview: [facility] 02/2011- partial CBD obs s/p lap rishi Angioma: tongue and other sites 07/07/2011 04/15/2016 [...] of this encounter (statuses as of 02/24/2023) [facility]01-[facility]2021 History of Past illness Narrative* Problem Noted Date Resolved Date Acute bilateral low back pain without sciatica 0 11/26/2020 01/23/2021 Contact dermatitis and other eczema due to other specified agent 10/07/2012 04/15/2016 Eczematous dermatitis 10/07/2012 04/15/2016 Xerosis cutis 10/07/2012 04/15/2016 Postinflammatory skin changes 10/07/2012 Pituitary adenoma 08/05/2011 04/22/2021 Cholecystitis 07/15/2011 10/10/2013 Overview: [facility] 02/2011- partial CBD obs s/p lap rishi Angioma: tongue and other sites 07/07/2011 04/15/2016 [...] of this encounter (statuses as of 03/08/2023) [facility]01-[facility]21 History of Past illness Narrative* Problem Noted Date Resolved Date Acute bilateral low back pain without sciatica 0 11/26/2020 01/23/2021 Contact dermatitis and other eczema due to other specified agent 10/07/2012 04/15/2016 Eczematous dermatitis 10/07/2012 04/15/2016 Xerosis cutis 10/07/2012 04/15/2016 Postinflammatory skin changes 10/07/2012 Pituitary adenoma 08/05/2011 04/22/2021 Cholecystitis 07/15/2011 10/10/2013 Overview: [facility] 02/2011- partial CBD obs s/p lap rishi Angioma: tongue and other sites 07/07/2011 04/15/2016 [...] of this encounter (statuses as of 03/17/2023) [facility]01-[facility] History of Past illness Narrative* Problem Noted Date Resolved Date Acute bilateral low back pain without sciatica 0 11/26/2020 01/23/2021 Contact dermatitis and other eczema due to other specified agent 10/07/2012 04/15/2016 Eczematous dermatitis 10/07/2012 04/15/2016 Xerosis cutis 10/07/2012 04/15/2016 Postinflammatory skin changes 10/07/2012 Pituitary adenoma 08/05/2011 04/22/2021 Cholecystitis 07/15/2011 10/10/2013 Overview: [facility] 02/2011- partial CBD obs s/p lap rishi Angioma: tongue and other sites 07/07/2011 04/15/2016 [...] of this encounter (statuses as of 05/07/2023) [facility]01-[facility]20[facility] History of Past illness Narrative* Problem Noted Date Diagnosed Date Resolved Date Acute bilateral low back laura n without sciatica 11/26/2020 01/23/2021 Contact dermatitis and other eczema due to other specified agent 10/07/2012 04/15/2016 Eczematous dermatitis 10/07/20122015 Xerosis cutis 10/07/2012 04/15/2016 Postinflammatory skin changes 10/07/2012 04/15/2016 Pituitary adenoma 08/05/2011 04/22/2021 Cholecystitis 07/15/2011 10/10/2013 Overview: [facility] 02/2011- partial CBD obs s/p lap rishi Angioma: tongue and other sites 07/07/2011 04/15/2016 [...] of this encounter (statuses as of 08/03/2023) [facility]01[facility] History of Past illness Narrative* Problem Noted Date Diagnosed Date Resolved Date Acute bilateral low back laura n without sciatica 11/26/2020 01/23/2021 Contact dermatitis and other eczema due to other specified agent 10/07/2012 04/15/2016 Eczematous dermatitis 10/07/20122015 Xerosis cutis 10/07/2012 04/15/2016 Postinflammatory skin changes 10/07/2012 04/15/2016 Pituitary adenoma 08/05/2011 04/22/2021 Cholecystitis 07/15/2011 10/10/2013 Overview: [facility] 02/2011- partial CBD obs s/p lap rishi Angioma: tongue and other sites 07/07/2011 04/15/2016 [...] of this encounter (statuses as of 08/09/2023) [facility]01-[facility] History of Past illness Narrative* Problem Noted Date Diagnosed Date Resolved Date Acute bilateral low back laura n without sciatica 11/26/2020 01/23/2021 Contact dermatitis and other eczema due to other specified agent 10/07/2012 04/15/2016 Eczematous dermatitis 10/07/20122015 Xerosis cutis 10/07/2012 04/15/2016 Postinflammatory skin changes 10/07/2012 04/15/2016 Cholecystitis 07/15/2011 10/10/2013 Overview: [facility] 02/2011- partial CBD obs s/p lap rishi Angioma: tongue and other sites 07/07/2011 04/15/2016 Tongue discoloration: angiom a and capillary varicosities 07/07/2011 04/15/2016 [place] angiomas 07/07/2011 04/15/2016 Solar Lentigines 07/07/2011 04/15/2016 [...] of this encounter (statuses as of 10/08/2023) [facility] History of Past illness Narrative* Problem Noted Date Diagnosed Date Resolved Date Acute bilateral low back laura n without sciatica 11/26/2020 01/23/2021 Contact dermatitis and other eczema due to other specified agent 10/07/2012 04/15/2016 Eczematous dermatitis 10/07/20122015 Xerosis cutis 10/07/2012 04/15/2016 Postinflammatory skin changes 10/07/2012 04/15/2016 Cholecystitis 07/15/2011 10/10/2013 Overview: [facility] 02/2011- partial CBD obs s/p lap rishi Angioma: tongue and other sites 07/07/2011 04/15/2016 [...] of this encounter (statuses as of 01/04/2024) [facility] History of Past illness Narrative* Problem Noted Date Diagnosed Date Resolved Date Acute bilateral low back laura n without sciatica 11/26/2020 01/23/2021 Contact dermatitis and other eczema due to other specified agent 10/07/2012 04/15/2016 Eczematous dermatitis 10/07/20122015 Xerosis cutis 10/07/2012 04/15/2016 Postinflammatory skin changes 10/07/2012 04/15/2016 Cholecystitis 07/15/2011 10/10/2013 Overview: [facility] 02/2011- partial CBD obs s/p lap rishi Angioma: tongue and other sites 07/07/2011 04/15/2016 [...] of this encounter (statuses as of 01/05/2024) [facility] History of Past illness Narrative* Problem Noted Date Diagnosed Date Resolved Date Acute bilateral low back laura n without sciatica 11/26/2020 01/23/2021 Contact dermatitis and other eczema due to other specified agent 10/07/2012 04/15/2016 Eczematous dermatitis 10/07/20122015 Xerosis cutis 10/07/2012 04/15/2016 Postinflammatory skin changes 10/07/2012 04/15/2016 Cholecystitis 07/15/2011 10/10/2013 Overview: [facility] 02/2011- partial CBD obs s/p lap rishi Angioma: tongue and other sites 07/07/2011 04/15/2016 [...] as of this encounter (statuses as of 01/24/2024) [facility]01[facility] History of Past illness Narrative* Problem Noted Date Diagnosed Date Resolved Date Acute bilateral low back laura n without sciatica 11/26/2020 01/23/2021 Contact dermatitis and other eczema due to other specified agent 10/07/2012 04/15/2016 Eczematous dermatitis 10/07/20122015 Xerosis cutis 10/07/2012 04/15/2016 Postinflammatory skin changes 10/07/2012 04/15/2016 Cholecystitis 07/15/2011 10/10/2013 Overview: [facility] 02/2011- partial CBD obs s/p lap rishi Angioma: tongue and other sites 07/07/2011 04/15/2016 [...] as of this encounter (statuses as of 01/29/2024) [facility] History of Past illness Narrative* Problem Noted Date Diagnosed Date Resolved Date Acute bilateral low back laura n without sciatica 11/26/2020 01/23/2021 Contact dermatitis and other eczema due to other specified agent 10/07/2012 04/15/2016 Eczematous dermatitis 10/07/20122015 Xerosis cutis 10/07/2012 04/15/2016 Postinflammatory skin changes 10/07/2012 04/15/2016 Cholecystitis 07/15/2011 10/10/2013 Overview: [facility] 02/2011- partial CBD obs s/p lap rishi Angioma: tongue and other sites 07/07/2011 04/15/2016 [...] as of this encounter (statuses as of 01/31/2024) [facility] History of Past illness Narrative* Problem Noted Date Diagnosed Date Resolved Date Acute bilateral low back laura n without sciatica 11/26/2020 01/23/2021 Contact dermatitis and other eczema due to other specified agent 10/07/2012 04/15/2016 Eczematous dermatitis 10/07/20122015 Xerosis cutis 10/07/2012 04/15/2016 Postinflammatory skin changes 10/07/2012 04/15/2016 Cholecystitis 07/15/2011 10/10/2013 Overview: [facility] 02/2011- partial CBD obs s/p lap rishi Angioma: tongue and other sites 07/07/2011 04/15/2016 [...] as of this encounter (statuses as of 02/02/2024) [facility] History of Past illness Narrative* Problem Noted Date Diagnosed Date Resolved Date Acute bilateral low back laura n without sciatica 11/26/2020 01/23/2021 Contact dermatitis and other eczema due to other specified agent 10/07/2012 04/15/2016 Eczematous dermatitis 10/07/20122015 Xerosis cutis 10/07/2012 04/15/2016 Postinflammatory skin changes 10/07/2012 04/15/2016 Cholecystitis 07/15/2011 10/10/2013 Overview: [facility] 02/2011- partial CBD obs s/p lap rishi Angioma: tongue and other sites 07/07/2011 04/15/2016 [...] as of this encounter (statuses as of 02/23/2024) [facility] History of Past illness Narrative* Problem Noted Date Diagnosed Date Resolved Date Acute bilateral low back laura n without sciatica 11/26/2020 01/23/2021 Contact dermatitis and other eczema due to other specified agent 10/07/2012 04/15/2016 Eczematous dermatitis 10/07/20122015 Xerosis cutis 10/07/2012 04/15/2016 Postinflammatory skin changes 10/07/2012 04/15/2016 Cholecystitis 07/15/2011 10/10/2013 Overview: [facility] 02/2011- partial CBD obs s/p lap rishi Angioma: tongue and other sites 07/07/2011 04/15/2016 [...] as of this encounter (statuses as of 02/28/2024) [facility] History of Present illness Narrative* Lisa Stein (Rt)Prisca - 11/19/2020 4:30 PM EST Radiology Service Progress Note PATIENT NAME: Dora Bryant DATE OF SERVICE: November 19, 2020 TIME: 4:41 PM PATIENT IDENTITY VERIFICATION COMPLETED USING TWO (2) IDENTIFIERS: Name and Date of confirmedby patient verbally. FALL SCREENING: Has the patient had 2 falls in the last year or 1 fall with injury or currently using an Ambulatory Assistive Device (Walker, Cane, Wheelchair, Crutches, etc.)? No PATIENT GENDER DATA: Female. status: : No status: NO. PATIENT RELEVANT IMPLANT DATA REVIEWED: Not Applicable RADIOLOGY DEPARTMENT: General X-ray: Exam(s) Completed: Spine X-Ray(s): Lumbar AP / LAT / L5-S1 PERIPHERAL IV DATA: Not applicable SIGNED BY: RT Kat November 19, 2020 4:41 PM [facility] Author [facility] April 02, 2023 4:12pm Note Date/Time April 02, 2023 3:59p m [facility] Medical Records Department [address] [place] [address] Discharge Summary 04/02/23 1558 MR#: [id number] Acct: [id number] Name: DORA BRYANT Rep #:[id number] : 1945 77 From: Dana Lux DO PCP: Dr. Pastor Garcia MD Status :ADM SARIAH Location: [place] [address] Providers Date of Admission: 04/01/23 Date of Discharge: 04/02/23 Primary Care Physician: Dr. 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 Code(s): E23.0 - Hypopituitarism (4) Secondary adrenal insufficiency: Status: Chronic Code(s): E27.49 - Other adrenocortical insufficiency Medications at Discharge Home Medications calcium carbonate 600 mg calcium (1,500 mg) tablet 600 mg PO DAILY supplement 08/19/18 cholecalciferol (vitamin D3) 50 mcg (2,000 unit) capsule 1,000 unit PO DAILY 08/19/18 enalapril maleate 2.5 mg tablet 2.5 mg PO QHS 08/19/18 omeprazole 20 mg capsule,delayed release 20 mg PO DAILY 08/19/18 nitroglycerin 0.4 mg sublingual tablet 0.4 mg sublingual PRN PRN Cardiac/Chest Pain ##30 08/20/18 conjugated estrogens 0.625 mg/gram vaginal cream (Premarin) 0.3125 mg vaginal 2XW 06/26/19 denosumab 60 mg/mL subcutaneous syringe (Prolia) 60 mg subcut [id number] #1 mL 04/30/22 levothyroxine 25 mcg tablet 25 mcg PO DAILY thyroid #90 tabs 04/30/22 hydrocodone-acetaminophen 5-325mg 5mg-325mg 1 tab PO Q6H PRN PRN Pain 3 days #10TABLETS 06/13/22 hydrocortisone 10 mg tablet 10 mg PO .COMPLEX #180 tabs 12/07/22 Hospital Course Procedures 2-D Echocardiogram, EKG and - (Carotid ultrasound/MRA head neck/MRI brain) Summary of Care Provided Minutes Spent on Discharge: 30 Hospital Course: Mrs. Bryant is a 77-year-old white female who presented to the emergency department at [facility] on 04/01/2023 with visual changes. She has a history of a pituitary tumor that is cystic in nature and has had rupture of cyst there previously that have caused some visual changes for her. She reported on the day of presentation that she had some diplopia and blurred vision with difficulty focusing over the past couple months. She has an eye appointment to see her machine bobbin winder on April 05 but this worried her soshe came in to have this further addressed. On admission she admitted that she is very stressed at home as she is taking care of her ill who has severeheart failure and is not doing well clinically. She felt that her anxiety may be contributing to her visual issues. She was admitted in and stroke work-up was pursued. CT of the brain showed no acute findings with chronic involutionalchanges. MRI did confirm cystic pituitary gland that was 25 x 20 x 15 mm. The infundibular stalk was normal and there was severe motion artifact however no compression was noted at the optic chiasm. MRA of the head neck showed approximately less than 50% carotid stenosis but carotid duplex showed smooth plaque with less than 50% stenosis at the proximal right internal carotid artery, smooth plaque at the proximal left internal carotid artery that was lessthan 50% and about 50% stenosis of the left vertebral artery with patent and antegrade flow bilaterally. We did obtain lipids and her total cholesterol was 183/LDL 102/HDL 61/triglycerides 98. With the identification of plaque I did recommend a low-dose statin to see if we get her LDL less than 70 however she would prefer to alter her diet at this time to see if she can make improvements and then may be willing to start a statin in the future if diet changes did not result in appropriate changes in her cholesterol. I did give her information donovan low-fat low cholesterol diet at the time of discharge. Echocardiogram was performed and showed an EF of 70% with no diastolic dysfunction and pulmonary systolic pressure to 45 mmHg with a negative bubble study. The patient's visualdisturbances that she presented with were resolved for pretty much all of her hospital course. She does have an appointment with her machine bobbin winder on Wednesday and I encouraged her to keep this appointment. She assured me that she would. I also asked her to please follow-up with her primary care physician within the next 1 to 2 weeks. She was discharged home in stable condition on 04/02/2023. 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 Diverticulosis GERD Fibromyalgia Hiatal hernia Lactose intolerance Osteoporosis Physical Exam Const alert, oriented x3, no apparent distress, average body habitus, no limitations, healthy appearing and well nourished General Appearance: cooperative, comfortable, well kempt and well developed Orientation / Consciousness: awake, oriented to person, oriented to place and oriented to time Exam Limitations: no limitations HEENT normocephalic, head/scalp atraumatic and hearing grossly normal bilaterally Resp normal respiratory effort, no retractions, no use of accessory muscles and clearto auscultation bilaterally Auscultation: Negative for crackles, rhonchi or wheezes Cardio regular rate, regular rhythm, S1 normal heart sound, S2 normal heart sound, no murmurs, no rub, no gallops and no clicks GI normal to inspection, nondistended, normoactive bowel sounds and soft to palpation Extremity no clubbing, cyanosis or edema Extremity Narrative: 2+ pedal pulses Neuro oriented x3, CN's II-XII intact bilaterally, moves all extremities and no focal motor deficits Speech: speech normal Psych affect normal Psych Narrative: Very pleasant, appropriate Weight / BMI Weight Weight: 57.833 kg Body Mass Index (BMI) 25.7 ABG / Lab / Microbiology Data Result Diagrams: 04/02/23 06:45 04/02/23 06:45 Laboratory: Laboratory Results - last 24 hr 04/01/23 18:20: WBC 11.4 H, RBC 4.73, Hgb 14.9, Hct 46.3, MCV 97.9, MCH 31.5, MCHC 32.2, RDW Std Deviation 52.8 H, RDW Coeff of Marina 14.6, Plt Count TNP, MPV 10.8, Immature Gran % (Auto) 0.400, Neut % (Auto) 73.0 H, Lymph % (Auto) 18.3 L,Glynn % (Auto) 6.7, Eos % (Auto) 0.8, Baso % (Auto) 0.8, Absolute Neuts (auto) 8.3 H, Absolute Lymphs (auto) 2.08, Nucleated RBC % 0, Platelet Estimate ADEQUATE, RBC Morphology N CHROM, Anisocytosis RARE, Macrocytosis RARE 04/01/23 18:20: Sodium 138, Potassium 6.0 H*, Chloride 111 H, Carbon Dioxide 25.0, Anion Gap 2 L, BUN 20 H, Creatinine 1.08 H, Estim Creat Clear Calc 42.49, Est GFR (MDRD) Af Amer 63, Est GFR (MDRD) Non-Af 52 L, BUN/Creatinine Ratio 18.5, Glucose 92, Calcium 9.5 04/01/23 19:10: PT 13.5, INR 1.0, APTT 27.0 04/01/23 21:25: Sodium 143, Potassium 4.0, Chloride 109 H, Carbon Dioxide 24.0, Anion Gap 10, BUN 18, Creatinine 1.03 H, Estim Creat Clear Calc 44.55, Est GFR (MDRD) Af Amer 67, Est GFR (MDRD) Non-Af 55 L, BUN/Creatinine Ratio 17.5, Glucose 91, Calcium 8.8 04/02/23 06:45: WBC 9.4, RBC 4.73, Hgb 14.8, Hct 45.8, MCV 96.8, MCH 31.3, MCHC 32.3, RDW Std Deviation 51.3 H, RDW Coeff of Marina 14.4, Plt Count 261, MPV 10.3, Immature Gran % (Auto) 0.500, Neut % (Auto) 54.4, Lymph % (Auto) 32.3, Glynn % (Auto) 8.3, Eos % (Auto) 3.6, Baso % (Auto) 0.9, Absolute Neuts (auto) 5.1, Absolute Lymphs (auto) 3.03, Nucleated RBC % 0 04/02/23 06:45: Sodium 143, Potassium 3.6, Chloride 111 H, Carbon Dioxide 26.0, Anion Gap 6, BUN 17, Creatinine 1.00, Estim Creat Clear Calc 44.38, Est GFR (MDRD) Af Amer 69, Est GFR (MDRD) Non-Af 57 L, BUN/Creatinine Ratio 17.0, Glucose 83, Calcium 8.7, Total Bilirubin 0.50, AST 24, ALT 26, Alkaline Phosphatase 94, Total Protein 6.3 L, Albumin 3.5, Globulin 2.8, Albumin/GlobulinRatio 1.2, Triglycerides 98, Cholesterol 183, LDL Cholesterol 102, VLDL Cholesterol 20, HDL Cholesterol 61 04/02/23 06:45: Hemoglobin A1c 5.6 Radiography Diagnostic Testing: Radiology Impression Brain CT 04/01/23 18:30 IMPRESSION: There are no acute findings. Chronic involutional changes of the brain. Electronically Signed: Noe Castro MD at 19:16 EDT Reading Location ID and State: [facility] / [place] , Service support , Echocardiogram 04/01/23 22:12 Interpretation Summary The estimated ejection fraction is 70 %. No evidence for diastolic dysfunction. Pulmonary artery systolic pressure is 45 mmHg. Ordering Physician: Erik Yoder Referring Physician: PASTOR GARCIA Performed By: Adriana Raymond RDCS Brain MRI 04/02/23 07:10 IMPRESSION: (NOT LISTED IN ORDER OF SIGNIFICANCE) There is expansion of the sella turcica. There is a cystic pituitary gland 25 x 20 x 15mm mass. Normal infundibular stalk. Severe motion artifact but there is no compression of the optic chiasm. Limited study of the lesion without IV and without prior MRI studies. From the patient''s history, ophthalmologic consult is recommended that this is not ordered and obtained. Electronically Signed: Noe Castro MD at 15:52 EDT , Head MRA 04/02/23 07:10 IMPRESSION: 1. There is a cystic pituitary mass that displaces the right and left cavernous carotid artery laterally. 2. There is calcified plaque formation of the right cavernous carotid artery, with a mild stenosis (less than 50%). ALL ABOVE CRITERIA BY NASCET. 3. There is calcified plaque formation of the left cavernous carotid artery, with a mild stenosis (less than 50%). ALL ABOVE CRITERIA BY NASCET. Electronically Signed: Noe Castro MD at 15:54 EDT , Neck MRA 04/02/23 07:10 IMPRESSION: 1. There is mild atherosclerotic plaque formation of the origin of the right internal carotid artery with less than 50% cross sectional diameter stenosis. ALL ABOVE CRITERIA BY NASCET. 2. There is mild atherosclerotic plaque formation of the origin of the left internal carotid artery with less than 50% cross sectional diameter stenosis. ALL ABOVE CRITERIA BY NASCET. Electronically Signed: Noe Castro MD at 15:55 EDT , Carotid Duplex 04/02/23 07:59 Interpretation Summary Smooth plaque at the proximal right internal carotid artery with less than 50% stenosis Less than 50% stenosis right external carotid artery Smooth plaque at the proximal left internal carotid artery with less than 50% stenosis Less than 50% stenosis left external carotid artery Patent and antegrade vertebral arteries bilaterally. Borderline approaching 50% stenosis left vertebral Ordering Physician: Dana Lux Referring Physician: Elan Garcia Performed By: Anne Marie Camilo RVT D/C Instructions Discharge Diet: Low fat / Low cholesterol Discharge Activity: Return to Normal Activity Meaningful Use Info Meaningful Use Diagnoses (Choose all that apply): None applicable Discharge Plan Admission Admit Date/Time: 04/01/23 20:03 Primary Reason for Your Visit: Visual changes Attending Provider: Dana Lux Primary Care Provider: Pastor Garcia Consulting Providers: Erik Yoder Instructions Patient Instructions: ED Low-Cholesterol Diet, Low-Fat Cooking Tips Additional Instructions / Restrictions: 1. 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 The pituitary sits right over the chiasm. 2. Recommend outpatient follow-up with Dr. Worley within the next week to reevaluate your vision and to perform a dilated eye exam. Discharge Orders/Prescriptions Prescriptions: Continued Premarin 0.625 mg/gram cream 0.3125 mg VAGINAL 2XW Prolia 60 mg/mL syringe 60 mg subcut [id number] Qty: 1 1RF levothyroxine 25 mcg tablet 25 mcg PO DAILY Qty: 90 3RF enalapril maleate 2.5 MG tablet 2.5 mg PO QHS omeprazole 20 capsule,delayed release(DR/EC) 20 mg PO DAILY calcium carbonate 600 MG tablet 600 mg PO DAILY cholecalciferol (vitamin D3) 2,000 UNIT capsule 1,000 unit PO DAILY nitroglycerin 0.4 MG tablet, sublingual 0.4 mg sublingual PRN PRN (Reason: Cardiac/Chest Pain) Qty: 30 0RF Rx Instructions: take one tab sublingually PRN if chest pain occurs hydrocodone-acetaminophen 5-325 mg tablet 1 tab PO Q6H PRN PRN (Reason: Pain) 3 Days Qty: 10 0RF hydrocortisone 10 mg tablet 10 mg PO .COMPLEX Qty: 180 1RF Rx Instructions: 10 mg PO 10 mg am and 5 mg afternoon. Double dose if fever.; Referrals / Follow Up: Pastor Garcia MD [Primary Care Provider] - In 1 Week Zoltan Worley MD [Med Staff - Active Staff] - Within 1 Week Disposition Disposition (needs filled in before D/C Order can be placed): Home, Self Care Charges/Coding Visit Charges Inpatient E&M: 25025 Disch Hosp 04/02/23 161 <Electronically signed by Dana Lux DO> Cosigner Signature (if applicable): CC: Dr. Pastor Garcia MD; Dr. Zoltan Worley MD; Dr. Dana Lux DO~ Signed [facility] Work Phone: Evaluation note* Diagnosis Chronic bilateral low back pain without sciatica- Primary Chronic pain of both hips Fall in home, initial encounter [facility] Diagnosis Vaginal irritation- Primary Unspecified noninflammatory disorder of vagina documented in this encounter [facility] note* Diagnosis Hypopituitarism (HCC)- Primary Panhypopituitarism Essential hypertension Unspecified essential hypertension Mixed hyperlipidemia [facility] Diagnosis Leukocytosis, unspecified type- Primary Abdominal pain, generalized [facility] Diagnosis Leukocytosis, unspecified type [facility] Diagnosis Neutrophilia- Primary Other specified disease of white blood cells [facility] Diagnosis Vaginal disorder- Primary Unspecified noninflammatory disorder of vagina [facility] Diagnosis Onset Date Resolution Status History of pituitary tumor c hronic Osteoporosis chronic Secondary adrenal insufficiency chronic Secondary hypothyroidism [facility] Work Phone: Evaluation note* Diagnosis Neutrophilia- Primary Other specified disease of white blood cells Leukocytosis, unspecified type [facility] Diagnosis Leukocytosis, unspecified type- Primary Neutrophilia Other specified disease of white blood cells Essential hypertension Unspecified essential hypertension Mixed hyperlipidemia Hypopituitarism (HCC) Panhypopituitarism Gastroesophageal reflux disease without esophagitis Esophageal reflux Stage 3a chronic kidney disease (HCC) Vaginal irritation Unspecified noninflammatory disorder of vagina [facility] Diagnosis Neutrophilia- Primary Other specified disease of white blood cells Leukocytosis, unspecified type [facility]* Diagnosis Fall, subsequent encounter- Primary Closed fracture of right side of maxilla with routine healing, subsequent encounter Closed fracture of orbit with routine healing, subsequent encounter Laceration of right hand without foreign body, subsequent encounter Facial laceration, subsequent encounter [facility]* Diagnosis Wrist pain, right- Primary Pain in joint, forearm Hand pain, right Pain in limb Screening mammogram for breast cancer [facility] Diagnosis Right wrist pain- Primary Pain in joint, forearm [facility]* Diagnosis Acute cough- Primary Expiratory wheezing [facility] noteNo assessment information availableW[facility] Work Phone: Evaluation note* Diagnosis Hypopituitarism (HCC) Panhypopituitarism Gastroesophageal reflux disease without esophagitis Esophageal reflux [facility] Essential hypertension- Primary Unspecified essential hypertension Hypopituitarism (HCC) Panhypopituitarism Glucocorticoid deficiency (HCC) Glucocorticoid deficiency Senile osteoporosis [facility] Diagnosis Onset Date Resolution Status Vision abnormalities acute Benign essential hypertension chronic 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 Secondary adrenal insufficiency chronic [facility] Work Phone: Evaluation note* Diagnosis Pituitary adenoma (HCC)- Primary Benign neoplasm of pituitary gland and craniopharyngeal duct (pouch) [facility] Diagnosis Onset Date Resolution Status Vision abnormalities resolve d Glucocorticoid deficiency ch ronic History of pituitary tumor c hronic Osteoporosis chronic Secondary hypothyroidism chr onic [facility] Work Phone: Evaluation note* Diagnosis Vaginal discharge- Primary Leukorrhea, not specified as infective Vaginal itching Pruritus of genital organs [facility]* Diagnosis 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 Pain in [place], right [facility]* Diagnosis Colitis- Primary Other and unspecified noninfectious gastroenteritis and colitis Allergic reaction to contrast material, initial encounter Stage 3a chronic kidney disease (HCC) [facility]* Diagnosis Daron infection- Primary Candidiasis of unspecified site [facility] Diagnosis Upper respiratory tract infection, unspecified type- Primary [facility]* Diagnosis Essential hypertension- Primary Unspecified essential hypertension Disease of pituitary gland (HCC) Unspecified disorder of the pituitary gland and its hypothalamic control Pituitary adenoma (HCC) Benign neoplasm of pituitary gland and craniopharyngeal duct (pouch) Stage 3a chronic kidney disease (HCC) Acquired hypothyroidism Unspecified hypothyroidism Mixed hyperlipidemia Hypopituitarism (HCC) Panhypopituitarism Screening for depression Gastroesophageal reflux disease without esophagitis Esophageal reflux [facility]* Diagnosis Gastroesophageal reflux disease without esophagitis Esophageal reflux [facility]* Diagnosis Fall in home, subsequent encounter- Primary Other fracture of unspecified thoracic vertebra, initial encounter for closed fracture (HCC) Closed fracture of ramus of right pubis with routine healing, subsequent encounter [facility] Fall in home, subsequent encounter- Primary Other fracture of unspecified thoracic vertebra, initial encounter for closed fracture (HCC) Closed fracture of ramus of right pubis with routine healing, subsequent encounter [facility] Diagnosis Fall in home, initial encounter- Primary Closed fracture of ramus of right pubis with routine healing, subsequent encounter [facility] Diagnosis Fall in home, subsequent encounter- Primary Closed fracture of ramus of right pubis with routine healing, subsequent encounter Other fracture of unspecified thoracic vertebra, initial encounter for closed fracture (HCC) Stage 3a chronic kidney disease (HCC) [facility] Diagnosis Fall in home, initial encounter- Primary Closed fracture of ramus of right pubis with routine healing, subsequent encounter [facility] Diagnosis Fall in home, subsequent encounter Closed fracture of ramus of right pubis with routine healing, subsequent encounter [facility] Diagnosis Pain in right lower leg- Primary [facility]* Diagnosis Chronic bilateral low back pain with right-sided sciatica [facility]* Diagnosis Pain in right lower leg [facility]* Diagnosis Rib pain on right side Chest pain, unspecified [facility]* Diagnosis Expiratory wheezing [facility]* Diagnosis Neutrophilia Other specified disease of white blood cells Leukocytosis, unspecified type [facility]* Diagnosis Wrist pain, right Pain in joint, forearm Hand pain, right Pain in limb [facility] Diagnosis Chronic bilateral low back pain without sciatica Chronic pain of both hips [facility]* Diagnosis Foot pain, left Pain in limb [facility] Diagnosis Cough [facility] Diagnosis Acute bilateral low back pain without sciatica [facility] Diagnosis Acute bilateral low back pain with right-sided sciatica- Primary Essential hypertension Unspecified essential hypertension Mixed hyperlipidemia Stage 3a chronic kidney disease (HCC) [facility]* Diagnosis Acute left-sided low back pain with left-sided sciatica- Primary Lower abdominal tenderness Abdominal tenderness, other specified site [facility]* Diagnosis Essential hypertension- Primary Unspecified essential hypertension Stage 3a chronic kidney disease (HCC) Gastroesophageal reflux disease without esophagitis Esophageal reflux Acquired hypothyroidism Unspecified hypothyroidism Hypopituitarism (HCC) Panhypopituitarism documented in this encounter [facility] note* Diagnosis Onset Date Resolution Status Admit Date Glucocorticoid deficiency chronic May 18, 2025 10:45am History of pituitary tumor chronic May 18, 2025 10:45am Osteoporosis chronic May 18, 025 10:45am Secondary hypothyroidism chronic May 18, 2025 10:45am [facility] Work Phone: Hospital Discharge instructions Additional Instructions Your workup did not show any obvious signs of active arterial internal bleeding. It did show thickening and inflammation of your sigmoid colon consistent with colitis. I feel your pain and bleeding is secondary to this inflammation of the intestine and sloughing of the lining. Take antibiotics as directed which should resolve the symptoms in the next few days. If you develop a fever worsening pain or have worsening bleeding or any further concerns please return to the hospital for repeat [facility] Work Phone: Reason for referral (narrative)* Diagnostic Procedure Only (Routine) - Pending Review Specialty Diagnoses / Procedures Referred By Mallory lopez Referred To Contact [facility] Diagnoses Screening mammogram for breast cancer Procedures JOON SCREENING SCREENING MAMMOGRAPHY BI 2-VIEW BREAST INC CAD Elan Garcia MD [address] [place] [address] [facility] [address] [place] [id number] Referral ID Status Reason Start Date Expiration Date Visits Requested Visits Authorized [id number] Pending Review Auto-Generat ed Referral 08/17/2022 08/16/2023 1 1 * Diagnostic Procedure Only (Routine) - Closed Specialty Diagnoses / Procedures Referred By Mallory t Referred To Contact XR IMAGING Diagnoses Wrist pain, right Hand pain, right Procedures XR HAND GENERAL 3V PA/LAT/OBL RIGHT RADEX HAND MINIMUM 3 VIEWS Elan Garcia MD [address] [place] [address] [facility] Referral ID Status Reason Start Date Expiration Date V isits Requested Visits Authorized [id number] Closed Auto-Generate d Referral 07/17/2022 08/16/2023 1 1 * Diagnostic Procedure Only (Routine) - Closed Specialty Diagnoses / Procedures Referred By Contac t Referred To Contact XR IMAGING Diagnoses Wrist pain, right Hand pain, right Procedures XR WRIST GENERAL 3V PA/LAT/OBL RIGHT RADEX WRIST COMPLETE MINIMUM 3 VIEWS Elan Garcia MD [address] [place] [address] Xr Imaging Referral ID Status Reason Start Date Expiration Date V isits Requested Visits Authorized [id number] Closed Auto-Generate d Referral 07/17/2022 08/16/2023 1 1 [facility] for referral (narrative)* Diagnostic Procedure Only (Routine) - Closed Specialty Diagnoses / Procedures Referred By Contac t Referred To Contact XR IMAGING Diagnoses Fall in home, subsequent encounter Closed fracture of ramus of right pubis with routine healing, subsequent encounter Procedures XR HIP GENERAL 3V PELV/AP/LAT RIGHT RADEX HIP UNILATERAL WITH PELVIS 2-3 VIEWS Ealn Garcia MD [address] [place] [address] [place] [address] Referral ID Status Reason Start Date Expiration Date V isits Requested Visits Authorized [id number] Closed Auto-Generate d Referral 05/18/2024 06/12/2025 1 1 [facility] for referral (narrative)* Diagnostic Procedure Only (Urgent) - Authorized Specialty Diagnoses / Procedures Referred By Contac t Referred To Contact US IMAGING Diagnoses Pain in right lower leg Procedures US DVT LOWER RIGHT DUP-SCAN XTR VEINS UNILATERAL/LIMITED STUDY [employer], [place], 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 [address] [place] [address] [place] [address] Referral ID Status Reason Start Date Expiration Date Visits Requested Visits Authorized [id number] Authorized Auto-Generat ed Referral 07/31/2024 08/30/2025 1 1 [facility] for referral (narrative)* Diagnostic Procedure Only (Routine) - Closed Specialty Diagnoses / Procedures Referred By Contac t Referred To Contact XR IMAGING Diagnoses Chronic bilateral low back pain with right-sided sciatica Procedures XR LUMBAR GENERAL 3V AP/LAT/L5-S1 RADEX SPINE LUMBOSACRAL 2/3 VIEWS Elan Garcia MD [address] [place] [address] [place] [address] Referral ID Status Reason Start Date Expiration Date V isits Requested Visits Authorized [id number] Closed Auto-Generate d Referral 01/05/2024 02/03/2025 1 1 [facility] for referral (narrative)* Diagnostic Procedure Only (Urgent) - Closed Specialty Diagnoses / Procedures Referred By Contac t Referred To Contact US IMAGING Diagnoses Pain in right lower leg Procedures US DVT LOWER RIGHT DUP-SCAN XTR VEINS UNILATERAL/LIMITED STUDY PodlogarEdna APRN.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 [address] [place] [address] [place] [address] Referral ID Status Reason Start Date Expiration Date V isits Requested Visits Authorized [id number] Closed Auto-Generate d Referral 07/31/2024 08/30/2025 1 1 [facility] for referral (narrative)* Diagnostic Procedure Only (Routine) - Closed Specialty Diagnoses / Procedures Referred By Contac t Referred To Contact XR IMAGING Diagnoses Rib pain on right side Procedures XR RIBS/CHEST 3V AP RIB/OBLS/CXR RIGHT RADEX RIBS UNI W/POSTEROANT CH MINIMUM 3 VIEWS Elan Garcia MD [address] [place] [address] [place] [address] Referral ID Status Reason Start Date Expiration Date V isits Requested Visits Authorized [id number] Closed Auto-Generate d Referral 12/01/2023 12/30/2024 1 1 [facility] for referral (narrative)* Diagnostic Procedure Only (Routine) - Closed Specialty Diagnoses / Procedures Referred By Contac t Referred To Contact XR IMAGING Diagnoses Wrist pain, right Hand pain, right Procedures XR HAND GENERAL 3V PA/LAT/OBL RIGHT RADEX HAND MINIMUM 3 VIEWS Elan Garcia MD [address] [place] [address] [place] [address] Referral ID Status Reason Start Date Expiration Date V isits Requested Visits Authorized [id number] Closed Auto-Generate d Referral 07/17/2022 08/16/2023 1 1 * Diagnostic Procedure Only (Routine) - Closed Specialty Diagnoses / Procedures Referred By Contac t Referred To Contact XR IMAGING Diagnoses Wrist pain, right Hand pain, right Procedures XR WRIST GENERAL 3V PA/LAT/OBL RIGHT RADEX WRIST COMPLETE MINIMUM 3 VIEWS Elan Garcia MD [address] [place] [address] [place] [address] Referral ID Status Reason Start Date Expiration Date V isits Requested Visits Authorized [id number] Closed Auto-Generate d Referral 07/17/2022 08/16/2023 1 1 [facility] for referral (narrative)* Diagnostic Procedure Only (Routine) - Closed Specialty Diagnoses / Procedures Referred By Contac t Referred To Contact XR IMAGING Diagnoses Chronic pain of both hips Procedures XR HIP BILATERAL 5V PEL/AP/LAT EACH HIP RADEX HIPS BILATERAL WITH PELVIS MINIMUM 5 VIEWS Elan Garcia MD [address] [place] [address] [place] [address] Referral ID Status Reason Start Date Expiration Date V isits Requested Visits Authorized [id number] Closed Auto-Generate d Referral 03/20/2022 2023 1 1 * Diagnostic Procedure Only (Routine) - Closed Specialty Diagnoses / Procedures Referred By Contac t Referred To Contact XR IMAGING Diagnoses Chronic bilateral low back pain without sciatica Procedures XR LUMBAR GENERAL 3V AP/LAT/L5-S1 RADEX SPINE LUMBOSACRAL 2/3 VIEWS Elan Garcia MD [address] [place] [address] [place] [address] Referral ID Status Reason Start Date Expiration Date V isits Requested Visits Authorized [id number] Closed Auto-Generate d Referral 03/20/2022 2023 1 1 [facility] for referral (narrative)No reason for referral information [facility] Phone: Reason for visit Narrative* Diagnostic Procedure Only (Routine) - Closed Specialty Diagnoses / Procedures Referred By Contac t Referred To Contact XR IMAGING Diagnoses Fall in home, subsequent encounter Closed fracture of ramus of right pubis with routine healing, subsequent encounter Procedures XR HIP GENERAL 3V PELV/AP/LAT RIGHT RADEX HIP UNILATERAL WITH PELVIS 2-3 VIEWS Elan Garcia MD [address] [place] [address] [place] [address] Referral ID Status Reason Start Date Expiration Date V isits Requested Visits Authorized [id number] Closed Auto-Generate d Referral 05/18/2024 06/12/2025 1 1 [facility] for visit Narrative* Diagnostic Procedure Only (Routine) - Closed Specialty Diagnoses / Procedures Referred By Contac t Referred To Contact XR IMAGING Diagnoses Chronic bilateral low back pain with right-sided sciatica Procedures XR LUMBAR GENERAL 3V AP/LAT/L5-S1 RADEX SPINE LUMBOSACRAL 2/3 VIEWS Elan Garcia MD [address] [place] [address] [place] [address] Referral ID Status Reason Start Date Expiration Date V isits Requested Visits Authorized [id number] Closed Auto-Generate d Referral 01/05/2024 02/03/2025 1 1 [facility] for visit Narrative* Diagnostic Procedure Only (Routine) - Closed Specialty Diagnoses / Procedures Referred By Contac t Referred To Contact XR IMAGING Diagnoses Rib pain on right side Procedures XR RIBS/CHEST 3V AP RIB/OBLS/CXR RIGHT RADEX RIBS UNI W/POSTEROANT CH MINIMUM 3 VIEWS Elan Garcia MD [facility] [place] [address] [place] [address] Referral ID Status Reason Start Date Expiration Date V isits Requested Visits Authorized [id number] Closed Auto-Generate d Referral 12/01/2023 12/30/2024 1 1 [facility] for visit Narrative* Diagnostic Procedure Only (Routine) - Closed Specialty Diagnoses / Procedures Referred By Contac t Referred To Contact XR IMAGING Diagnoses Wrist pain, right Hand pain, right Procedures XR HAND GENERAL 3V PA/LAT/OBL RIGHT RADEX HAND MINIMUM 3 VIEWS Elan Garcia MD [address] [place] [address] [place] [address] Referral ID Status Reason Start Date Expiration Date V isits Requested Visits Authorized [id number] Closed Auto-Generate d Referral 07/17/2022 08/16/2023 1 1 [facility] for visit Narrative* Diagnostic Procedure Only (Routine) - Closed Specialty Diagnoses / Procedures Referred By Contac t Referred To Contact XR IMAGING Diagnoses Chronic pain of both hips Procedures XR HIP BILATERAL 5V PEL/AP/LAT EACH HIP RADEX HIPS BILATERAL WITH PELVIS MINIMUM 5 VIEWS Elan Garcia MD [address] [place] [address] [place] [address] Referral ID Status Reason Start Date Expiration Date V isits Requested Visits Authorized [id number] Closed Auto-Generate d Referral 03/20/2022 2023 1 1 [facility] Summary Purpose Family History No Family History Records Found Relationship Condition Age at Onset Recorded Date/T yonny father Malignant neoplasm Unknown Malignant neoplasm of colon Unknown sister Malignant neoplasm of breast Unknown mother Asthma Unknown Hypertension Unknown Cerebrovascular accident (CVA) Unknown Not Specified Anxiety Unknown Asthma Unknown Arthritis Unknown Malignant neoplasm of breast Unknown Diabetes mellitus Unknown Hyperlipidemia Unknown Severe allergy Unknown Relationship Condition Age at Onset Recorded Date/T yonny father Malignant neoplasm Unknown Malignant neoplasm of colon Unknown sister Malignant neoplasm of breast Unknown mother Asthma Unknown Hypertension Unknown Cerebrovascular accident (CVA) Unknown unrelated friend Anxiety Unknown Asthma Unknown Arthritis Unknown Malignant neoplasm of breast Unknown Diabetes mellitus Unknown Hyperlipidemia Unknown Severe allergy Unknown Advance Directives No Advanced Directives Records FoundDocuments on File Type Date Recorded 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 Advance Directive(s) 06/23/2019 8:51 AM Advance Directive(s) 10/28/2018 9:24 AM Advance Directive(s) 07/21/2017 9:15 AM Documents on File Type Date Recorded 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 Advance Directive(s) 06/23/2019 8:51 AM Advance Directive(s) 10/28/2018 9:24 AM Advance Directive(s) 07/21/2017 9:15 AM Advance Directive Response Recorded Date/ Time Living Will Yes July 13 9 8:33am Power of Tag And Label Cutter Yes July 13 019 8:33am Advance Directive Response Recorded Date/ Time Living Will Yes June 13, 2022 12:22pm Power of Tag And Label Cutter Yes June 13 12:22pm Advance Directive Response Recorded Date/ Time Living Will No April 01, 2023 5 :49pm Power of Tag And Label Cutter No April 01, 2023 5:49pm Advance Directive Response Recorded Date/ Time Name of Medical Power of Tag And Label Cutter ab bryant April 01, 2023 10:20pm Living Will Yes April 01, 2023 1 0:20pm Power of Tag And Label Cutter Yes April 01, 2023 10:20pm Advance Directive Response Recorded Date/ Time Living Will Yes April 01, 2023 9 :20pm Power of Tag And Label Cutter Yes April 01, 2023 9:20pm Advance Directive Response Recorded Date/ Time Name of Medical Power of Tag And Label Cutter Ab Bryant . January 22, 2024 11:01pm Living Will Yes January 22, 2024 11:01pm Power of Tag And Label Cutter Yes January 21 11:01pm Advance Directive Response Recorded Date/ Time Living Will No May 11, 2024 4:20am Do you have a Healthcare Power of Tag And Label Cutter? No May 11, 2024 4:20am Reason for Referral Specialty Diagnoses / Procedures Referred By Contac t Referred To Contact Pain Management Diagnoses Chronic bilateral low back pain without sciatica Chronic pain of both hips Procedures CONSULT TO PAIN MGT OFFICE/OUTPATIENT [facility] 60-74 MINUTES Elan Garcia MD [address] [place] [address] Referral ID Status Reason Start Date Expiration Date Visits Requested Visits Authorized [id number] Authorized PCP Requested Referral 03/20/2022 03/20/2023 1 1 Specialty Diagnoses / Procedures Referred By Contac t Referred To Contact XR IMAGING Diagnoses Chronic pain of both hips Procedures XR HIP BILATERAL 5V PEL/AP/LAT EACH HIP RADEX HIPS BILATERAL WITH PELVIS MINIMUM 5 VIEWS Elan Garcia MD [address] [place] [address] Xr Imaging Referral ID Status Reason Start Date Expiration Date V isits Requested Visits Authorized [id number] Closed Auto-Generate d Referral 03/20/2022 2023 1 1 Specialty Diagnoses / Procedures Referred By Contac t Referred To Contact XR IMAGING Diagnoses Chronic bilateral low back pain without sciatica Procedures XR LUMBAR GENERAL 3V AP/LAT/L5-S1 RADEX SPINE LUMBOSACRAL 2/3 VIEWS Elan Garcia MD [address] [place] [address] Xr Imaging Referral ID Status Reason Start Date Expiration Date V isits Requested Visits Authorized [id number] Closed Auto-Generate d Referral 03/20/2022 2023 1 1 Specialty Diagnoses / Procedures Referred By Contac t Referred To Contact CT IMAGING Diagnoses Leukocytosis, unspecified type Procedures CT ABD/PEL WO IVCON CT ABD & PELVIS W/O CONTRAST Elan Garcia MD [address] [place] [address] Ct Imaging Referral ID Status Reason Start Date Expiration Date Visits Requested Visits Authorized [id number] Pending Review Auto-Genera marily Referral Patient Cleared - Admin/Chair man/Directo r advise to proceed 05/11/2022 06/10/2023 2 2 Referral ID Status Reason Start Date Expiration Date Visits Requested Visits Authorized [id number] Authorized Auto-Generat ed Referral Patient Cleared - Admin/Chairm an/Director advise to proceed 05/12/2022 06/11/2022 2 2 Specialty Diagnoses / Procedures Referred By Contac t Referred To Contact Gynecology Diagnoses Vaginal disorder Procedures CONSULT TO GYNECOLOGY OFFICE/OUTPATIENT [facility] 60-74 MINUTES Jay JaylogEdna walter APRN.CNP [address] [place] [id number] Referral ID Status Reason Start Date Expiration Date Visits Requested Visits Authorized [id number] Authorized PCP Requested Referral Auto-Generate d Referral 05/15/2022 05/15/2023 1 1 Specialty Diagnoses / Procedures Referred By Contac t Referred To Contact Hematology Diagnoses Neutrophilia Leukocytosis, unspecified type Procedures CONSULT TO HEMATOLOGY OFFICE/OUTPATIENT [facility] 60-74 MINUTES Elan Garcia MD [address] [place] [address] Referral ID Status Reason Start Date Expiration Date Visits Requested Visits Authorized [id number] Authorized PCP Requested Referral 06/03/2022 06/03/2023 1 1 Specialty Diagnoses / Procedures Referred By Contac t Referred To Contact MR IMAGING Diagnoses Right wrist pain Procedures MRI WRIST WO IVCON RT MRI ANY JT UPPER EXTREMITY W/O CONTRAST MATRL Elan Garcia MD [address] [place] [address] Mr Imaging Referral ID Status Reason Start Date Expiration Date Visits Requested Visits Authorized [id number] Pending Review Auto-Generat ed Referral 07/20/2022 08/19/2023 1 1 Specialty Diagnoses / Procedures Referred By Contac t Referred To Contact [facility] Diagnoses Chronic bilateral low back pain with right-sided sciatica Procedures CONSULT TO PHYSICAL THERAPY PHYSICAL THERAPY EVALUATION HIGH COMPLEX 45 MINS Elan Garcia MD [facility] [place] [address] [facility] [address] [address] Referral ID Status Reason Start Date Expiration Date Visits Requested Visits Authorized [id number] Pending Review Auto-Generat ed Referral 01/05/2024 01/04/2025 1 1 Specialty Diagnoses / Procedures Referred By Contac t Referred To Contact XR IMAGING Diagnoses Chronic bilateral low back pain with right-sided sciatica Procedures XR LUMBAR GENERAL 3V AP/LAT/L5-S1 RADEX SPINE LUMBOSACRAL 2/3 VIEWS Elan Garcia MD [address] [place] [address] [place] [address] Referral ID Status Reason Start Date Expiration Date V isits Requested Visits Authorized [id number] Closed Auto-Generate d Referral 01/05/2024 02/03/2025 1 1 Specialty Diagnoses / Procedures Referred By Contac t Referred To Contact [facility] Diagnoses Fall in home, subsequent encounter Other fracture of unspecified thoracic vertebra, initial encounter for closed fracture (HCC) Closed fracture of ramus of right pubis with routine healing, subsequent encounter Procedures CONSULT TO PHYSICAL THERAPY PHYSICAL THERAPY EVALUATION HIGH COMPLEX 45 MINS Elan Garcia MD [address] [place] [address] [facility] [address] [address] Referral ID Status Reason Start Date Expiration Date Visits Requested Visits Authorized [id number] Pending Review Auto-Generat ed Referral 05/13/2024 05/13/2025 1 1 Specialty Diagnoses / Procedures Referred By Contac t Referred To Contact XR IMAGING Diagnoses Fall in home, subsequent encounter Closed fracture of ramus of right pubis with routine healing, subsequent encounter Procedures XR HIP GENERAL 3V PELV/AP/LAT RIGHT RADEX HIP UNILATERAL WITH PELVIS 2-3 VIEWS Elan Garcia MD [facility] [place] [address] [place] [address] Referral ID Status Reason Start Date Expiration Date Visits Requested Visits Authorized [id number] Authorized Auto-Generat ed Referral 05/18/2024 06/12/2025 1 1 Specialty Diagnoses / Procedures Referred By Contac t Referred To Contact [facility] Diagnoses Fall in home, subsequent encounter Other fracture of unspecified thoracic vertebra, initial encounter for closed fracture (HCC) Closed fracture of ramus of right pubis with routine healing, subsequent encounter Procedures PT REHAB FOLLOW UP ORDER THERAPEUTIC EXERCISES RE, EA 15 MIN. 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 [address] [place] [address] [facility] [address] [address] Referral ID Status Reason Start Date Expiration Date Visits Requested Visits Authorized [id number] Pending Review Auto-Generat ed Referral 09/25/2024 09/25/2025 1 1 Chief Complaint and Reason for Visit Chief Complaint Admit Date 6 M FU May 18, 2025 10:4 5am LOWER BACK PAIN THORACIC AND NECK PAIN J [facility] 2024 4:31pm Reason for Visit Admit Date Glucocorticoid deficiency May 18 10:45am History of pituitary tumor May 18 10:45am Osteoporosis May 18, 2025 10:4 5am Secondary hypothyroidism May 18, 2025 10:45am Chief Complaint 1 Y FU PROLIA Reason for Visit History of pituitary tumor Osteoporosis Secondary adrenal insufficiency Secondary hypothyroidism Chief Complaint PROLIA Chief Complaint NEURO VISION CHANGES Reason for Visit Vision abnormalities Benign essential hypertension 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 Secondary adrenal insufficiency Chief Complaint NEURO VISION CHANGES VISION CHANGES Reason for Visit Vision abnormalities Benign essential hypertension 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 Secondary adrenal insufficiency Chief Complaint NEURO VISION CHANGES VISION CHANGES 1 Y FU PROLIA Reason for Visit Vision abnormalities Glucocorticoid deficiency History of pituitary tumor Osteoporosis Secondary hypothyroidism Chief Complaint PROLIA XRAY GI BLEED Chief Complaint Admit Date 6 M FU May 18, 2025 10:4 5am Additional Source Comments INFORMATION SOURCE (unrecogn ized section and content) DATE CREATED AUTHOR 11/01/2018 [facility] DATE CREATED AUTHOR AUTHOR'S ORGANIZ ATION 12/14/2024 [facility] DATE CREATED AUTHOR AUTHOR'S ORGANIZ ATION 06/01/20[facility] Source Comments (unrecognize d section and content) In the event this informatio n is protected by the Federal Confidentiality of Alcohol and Drug Abuse Patient Records regulations: The Federal rules restrict any use of the information to criminally investigate or prosecute any alcohol or drug abuse patient.[facility] the event this information is protected by the Federal Confidentiality of Alcohol and Drug Abuse Patient Records regulations: The Federal rules restrict any use of the information to criminally investigate or prosecute any alcohol or drug abuse patient.[facility] Hospital[facility] the event this information is protected by the Federal Confidentiality of Alcohol and Drug Abuse Patient Records regulations: The Federal rules restrict any use of the information to criminally investigate or prosecute any alcohol or drug abuse patient.[facility] Hospital[facility] the event this information is protected by the Federal Confidentiality of Alcohol and Drug Abuse Patient Records regulations: The Federal rules restrict any use of the information to criminally investigate or prosecute any alcohol or drug abuse patient.[facility] HospitalIn the event this information is protected by the Federal Confidentiality of Alcohol and Drug Abuse Patient Records regulations: The Federal rules restrict any use of the information to criminally investigate or prosecute any alcohol or drug abuse patient.[facility] HospitalIn the event this information is protected by the Federal Confidentiality of Alcohol and Drug Abuse Patient Records regulations: The Federal rules restrict any use of the information to criminally investigate or prosecute any alcohol or drug abuse patient.[facility] Hospital[facility] the event this information is protected by the Federal Confidentiality of Alcohol and Drug Abuse Patient Records regulations: The Federal rules restrict any use of the information to criminally investigate or prosecute any alcohol or drug abuse patient.[facility] HospitalIn the event this information is protected by the Federal Confidentiality of Alcohol and Drug Abuse Patient Records regulations: The Federal rules restrict any use of the information to criminally investigate or prosecute any alcohol or drug abuse patient.[facility] Hospital[facility] the event this information is protected by the Federal Confidentiality of Alcohol and Drug Abuse Patient Records regulations: The Federal rules restrict any use of the information to criminally investigate or prosecute any alcohol or drug abuse patient.[facility] HospitalIn the event this information is protected by the Federal Confidentiality of Alcohol and Drug Abuse Patient Records regulations: The Federal rules restrict any use of the information to criminally investigate or prosecute any alcohol or drug abuse patient.[facility] HospitalIn the event this information is protected by the Federal Confidentiality of Alcohol and Drug Abuse Patient Records regulations: The Federal rules restrict any use of the information to criminally investigate or prosecute any alcohol or drug abuse patient.[facility] HospitalIn the event this information is protected by the Federal Confidentiality of Alcohol and Drug Abuse Patient Records regulations: The Federal rules restrict any use of the information to criminally investigate or prosecute any alcohol or drug abuse patient.[facility] HospitalIn the event this information is protected by the Federal Confidentiality of Alcohol and Drug Abuse Patient Records regulations: The Federal rules restrict any use of the information to criminally investigate or prosecute any alcohol or drug abuse patient.[facility] Hospital[facility] the event this information is protected by the Federal Confidentiality of Alcohol and Drug Abuse Patient Records regulations: The Federal rules restrict any use of the information to criminally investigate or prosecute any alcohol or drug abuse patient.[facility] HospitalIn the event this information is protected by the Federal Confidentiality of Alcohol and Drug Abuse Patient Records regulations: The Federal rules restrict any use of the information to criminally investigate or prosecute any alcohol or drug abuse patient.[facility] HospitalIn the event this information is protected by the Federal Confidentiality of Alcohol and Drug Abuse Patient Records regulations: The Federal rules restrict any use of the information to criminally investigate or prosecute any alcohol or drug abuse patient.[facility] HospitalIn the event this information is protected by the Federal Confidentiality of Alcohol and Drug Abuse Patient Records regulations: The Federal rules restrict any use of the information to criminally investigate or prosecute any alcohol or drug abuse patient.[facility] HospitalIn the event this information is protected by the Federal Confidentiality of Alcohol and Drug Abuse Patient Records regulations: The Federal rules restrict any use of the information to criminally investigate or prosecute any alcohol or drug abuse patient.[facility] HospitalIn the event this information is protected by the Federal Confidentiality of Alcohol and Drug Abuse Patient Records regulations: The Federal rules restrict any use of the information to criminally investigate or prosecute any alcohol or drug abuse patient.[facility] HospitalIn the event this information is protected by the Federal Confidentiality of Alcohol and Drug Abuse Patient Records regulations: The Federal rules restrict any use of the information to criminally investigate or prosecute any alcohol or drug abuse patient.[facility] HospitalIn the event this information is protected by the Federal Confidentiality of Alcohol and Drug Abuse Patient Records regulations: The Federal rules restrict any use of the information to criminally investigate or prosecute any alcohol or drug abuse patient.[facility] HospitalIn the event this information is protected by the Federal Confidentiality of Alcohol and Drug Abuse Patient Records regulations: The Federal rules restrict any use of the information to criminally investigate or prosecute any alcohol or drug abuse patient.[facility] HospitalIn the event this information is protected by the Federal Confidentiality of Alcohol and Drug Abuse Patient Records regulations: The Federal rules restrict any use of the information to criminally investigate or prosecute any alcohol or drug abuse patient.[facility] HospitalIn the event this information is protected by the Federal Confidentiality of Alcohol and Drug Abuse Patient Records regulations: The Federal rules restrict any use of the information to criminally investigate or prosecute any alcohol or drug abuse patient.[facility] HospitalIn the event this information is protected by the Federal Confidentiality of Alcohol and Drug Abuse Patient Records regulations: The Federal rules restrict any use of the information to criminally investigate or prosecute any alcohol or drug abuse patient.[facility] HospitalIn the event this information is protected by the Federal Confidentiality of Alcohol and Drug Abuse Patient Records regulations: The Federal rules restrict any use of the information to criminally investigate or prosecute any alcohol or drug abuse patient.[facility] HospitalIn the event this information is protected by the Federal Confidentiality of Alcohol and Drug Abuse Patient Records regulations: The Federal rules restrict any use of the information to criminally investigate or prosecute any alcohol or drug abuse patient.[facility] HospitalIn the event this information is protected by the Federal Confidentiality of Alcohol and Drug Abuse Patient Records regulations: The Federal rules restrict any use of the information to criminally investigate or prosecute any alcohol or drug abuse patient.[facility] HospitalIn the event this information is protected by the Federal Confidentiality of Alcohol and Drug Abuse Patient Records regulations: The Federal rules restrict any use of the information to criminally investigate or prosecute any alcohol or drug abuse patient.[facility] HospitalIn the event this information is protected by the Federal Confidentiality of Alcohol and Drug Abuse Patient Records regulations: The Federal rules restrict any use of the information to criminally investigate or prosecute any alcohol or drug abuse patient.[facility] HospitalIn the event this information is protected by the Federal Confidentiality of Alcohol and Drug Abuse Patient Records regulations: The Federal rules restrict any use of the information to criminally investigate or prosecute any alcohol or drug abuse patient.[facility] HospitalIn the event this information is protected by the Federal Confidentiality of Alcohol and Drug Abuse Patient Records regulations: The Federal rules restrict any use of the information to criminally investigate or prosecute any alcohol or drug abuse patient.[facility] HospitalIn the event this information is protected by the Federal Confidentiality of Alcohol and Drug Abuse Patient Records regulations: The Federal rules restrict any use of the information to criminally investigate or prosecute any alcohol or drug abuse patient.[facility] HospitalIn the event this information is protected by the Federal Confidentiality of Alcohol and Drug Abuse Patient Records regulations: The Federal rules restrict any use of the information to criminally investigate or prosecute any alcohol or drug abuse patient.[facility] HospitalIn the event this information is protected by the Federal Confidentiality of Alcohol and Drug Abuse Patient Records regulations: The Federal rules restrict any use of the information to criminally investigate or prosecute any alcohol or drug abuse patient.[facility] HospitalIn the event this information is protected by the Federal Confidentiality of Alcohol and Drug Abuse Patient Records regulations: The Federal rules restrict any use of the information to criminally investigate or prosecute any alcohol or drug abuse patient.[facility] HospitalIn the event this information is protected by the Federal Confidentiality of Alcohol and Drug Abuse Patient Records regulations: The Federal rules restrict any use of the information to criminally investigate or prosecute any alcohol or drug abuse patient.[facility] HospitalIn the event this information is protected by the Federal Confidentiality of Alcohol and Drug Abuse Patient Records regulations: The Federal rules restrict any use of the information to criminally investigate or prosecute any alcohol or drug abuse patient.[facility] HospitalIn the event this information is protected by the Federal Confidentiality of Alcohol and Drug Abuse Patient Records regulations: The Federal rules restrict any use of the information to criminally investigate or prosecute any alcohol or drug abuse patient.[facility] HospitalIn the event this information is protected by the Federal Confidentiality of Alcohol and Drug Abuse Patient Records regulations: The Federal rules restrict any use of the information to criminally investigate or prosecute any alcohol or drug abuse patient.[facility] HospitalIn the event this information is protected by the Federal Confidentiality of Alcohol and Drug Abuse Patient Records regulations: The Federal rules restrict any use of the information to criminally investigate or prosecute any alcohol or drug abuse patient.[facility] HospitalIn the event this information is protected by the Federal Confidentiality of Alcohol and Drug Abuse Patient Records regulations: The Federal rules restrict any use of the information to criminally investigate or prosecute any alcohol or drug abuse patient.[facility] HospitalIn the event this information is protected by the Federal Confidentiality of Alcohol and Drug Abuse Patient Records regulations: The Federal rules restrict any use of the information to criminally investigate or prosecute any alcohol or drug abuse patient.[facility] HospitalIn the event this information is protected by the Federal Confidentiality of Alcohol and Drug Abuse Patient Records regulations: The Federal rules restrict any use of the information to criminally investigate or prosecute any alcohol or drug abuse patient.[facility] HospitalIn the event this information is protected by the Federal Confidentiality of Alcohol and Drug Abuse Patient Records regulations: The Federal rules restrict any use of the information to criminally investigate or prosecute any alcohol or drug abuse patient.[facility] HospitalIn the event this information is protected by the Federal Confidentiality of Alcohol and Drug Abuse Patient Records regulations: The Federal rules restrict any use of the information to criminally investigate or prosecute any alcohol or drug abuse patient.[facility] HospitalIn the event this information is protected by the Federal Confidentiality of Alcohol and Drug Abuse Patient Records regulations: The Federal rules restrict any use of the information to criminally investigate or prosecute any alcohol or drug abuse patient.[facility] HospitalIn the event this information is protected by the Federal Confidentiality of Alcohol and Drug Abuse Patient Records regulations: The Federal rules restrict any use of the information to criminally investigate or prosecute any alcohol or drug abuse patient.[facility] HospitalIn the event this information is protected by the Federal Confidentiality of Alcohol and Drug Abuse Patient Records regulations: The Federal rules restrict any use of the information to criminally investigate or prosecute any alcohol or drug abuse patient.[facility] HospitalIn the event this information is protected by the Federal Confidentiality of Alcohol and Drug Abuse Patient Records regulations: The Federal rules restrict any use of the information to criminally investigate or prosecute any alcohol or drug abuse patient.[facility] HospitalIn the event this information is protected by the Federal Confidentiality of Alcohol and Drug Abuse Patient Records regulations: The Federal rules restrict any use of the information to criminally investigate or prosecute any alcohol or drug abuse patient.[facility] HospitalIn the event this information is protected by the Federal Confidentiality of Alcohol and Drug Abuse Patient Records regulations: The Federal rules restrict any use of the information to criminally investigate or prosecute any alcohol or drug abuse patient.[facility] HospitalIn the event this information is protected by the Federal Confidentiality of Alcohol and Drug Abuse Patient Records regulations: The Federal rules restrict any use of the information to criminally investigate or prosecute any alcohol or drug abuse patient.[facility] HospitalIn the event this information is protected by the Federal Confidentiality of Alcohol and Drug Abuse Patient Records regulations: The Federal rules restrict any use of the information to criminally investigate or prosecute any alcohol or drug abuse patient.[facility] HospitalIn the event this information is protected by the Federal Confidentiality of Alcohol and Drug Abuse Patient Records regulations: The Federal rules restrict any use of the information to criminally investigate or prosecute any alcohol or drug abuse patient.[facility] HospitalIn the event this information is protected by the Federal Confidentiality of Alcohol and Drug Abuse Patient Records regulations: The Federal rules restrict any use of the information to criminally investigate or prosecute any alcohol or drug abuse patient.[facility] HospitalIn the event this information is protected by the Federal Confidentiality of Alcohol and Drug Abuse Patient Records regulations: The Federal rules restrict any use of the information to criminally investigate or prosecute any alcohol or drug abuse patient.[facility] HospitalIn the event this information is protected by the Federal Confidentiality of Alcohol and Drug Abuse Patient Records regulations: The Federal rules restrict any use of the information to criminally investigate or prosecute any alcohol or drug abuse patient.[facility] HospitalIn the event this information is protected by the Federal Confidentiality of Alcohol and Drug Abuse Patient Records regulations: The Federal rules restrict any use of the information to criminally investigate or prosecute any alcohol or drug abuse patient.[facility] HospitalIn the event this information is protected by the Federal Confidentiality of Alcohol and Drug Abuse Patient Records regulations: The Federal rules restrict any use of the information to criminally investigate or prosecute any alcohol or drug abuse patient.[facility] HospitalIn the event this information is protected by the Federal Confidentiality of Alcohol and Drug Abuse Patient Records regulations: The Federal rules restrict any use of the information to criminally investigate or prosecute any alcohol or drug abuse patient.[facility] HospitalIn the event this information is protected by the Federal Confidentiality of Alcohol and Drug Abuse Patient Records regulations: The Federal rules restrict any use of the information to criminally investigate or prosecute any alcohol or drug abuse patient.[facility] HospitalIn the event this information is protected by the Federal Confidentiality of Alcohol and Drug Abuse Patient Records regulations: The Federal rules restrict any use of the information to criminally investigate or prosecute any alcohol or drug abuse patient.[facility] HospitalIn the event this information is protected by the Federal Confidentiality of Alcohol and Drug Abuse Patient Records regulations: The Federal rules restrict any use of the information to criminally investigate or prosecute any alcohol or drug abuse patient.[facility] HospitalIn the event this information is protected by the Federal Confidentiality of Alcohol and Drug Abuse Patient Records regulations: The Federal rules restrict any use of the information to criminally investigate or prosecute any alcohol or drug abuse patient.[facility] HospitalIn the event this information is protected by the Federal Confidentiality of Alcohol and Drug Abuse Patient Records regulations: The Federal rules restrict any use of the information to criminally investigate or prosecute any alcohol or drug abuse patient.[facility] HospitalIn the event this information is protected by the Federal Confidentiality of Alcohol and Drug Abuse Patient Records regulations: The Federal rules restrict any use of the information to criminally investigate or prosecute any alcohol or drug abuse patient.[facility] Reason for Visit (unrecogniz ed section and content) Reason Comments Pain right and left hip a nd spine pain Reason Comments Vaginal Problem irritation x3 months [...] CT ABD & PELVIS W/O CONTRAST Elan Garcai MD [address] [place] [address] Ct Imaging Referral ID Status Reason Start Date Expiration Date Visits Requested Visits Authorized [id number] Authorized Auto-Generat ed Referral Patient Cleared - Admin/Chairm an/Director advise to proceed 05/12/2022 06/11/2022 2 2 Reason Comments Orders Reason Comments F/U 6 months Reason Comments New Patient Evaluation Specialty Diagnoses / Procedures Referred By Mallory lopez Referred To Contact Hematology Diagnoses Neutrophilia Leukocytosis, unspecified type Procedures CONSULT TO HEMATOLOGY OFFICE/OUTPATIENT NEW HIGH MDM 60-74 MINUTES Elan Garcia MD [address] [place] [address] Referral ID Status Reason Start Date Expiration Date V isits Requested Visits Authorized [id number] Closed PCP Requested Referral 06/03/2022 06/03/2023 1 [...] Comments Leg Pain Reason Comments Calf Pain Reason Comments ER F/U Nausea Reason Comments ER F/U COLITIS last y 01/22/24 rectal bleeding Reason Comments rectal issue Reason Comments Rectal Problem Continues; tried to look and saw some white stuff and is wondering if has a yeast infection from ATB she had recently taken. Tongue is white but not painful. Reason Onset Date Comments Refill Request 02/23/2024 Reason Comments Cough Reason Comments F/U 6 months Reason Onset Date Comments Refill Request 04/26/2024 Reason Comments ER F/U Reason Comments PT Eval Patient Education Specialty Diagnoses / Procedures Referred By Mallory lopez Referred To Contact [facility] Diagnoses Fall in home, subsequent encounter Other fracture of unspecified thoracic vertebra, initial encounter for closed fracture (HCC) Closed fracture of ramus of right pubis with routine healing, subsequent encounter Procedures CONSULT TO PHYSICAL THERAPY PHYSICAL THERAPY EVALUATION HIGH COMPLEX 45 MINS Elan Garcia MD [address] [place] [address] [facility] [place] [address] [place] [address] Referral ID Status Reason Start Date Expiration Date V isits Requested Visits Authorized [id number] Closed Auto-Generate d Referral 11/22/2023 11/21/2024 1 1 Reason Comments Physical Therapy Specialty Diagnoses / Procedures Referred By Contac t Referred To Contact [facility] Diagnoses Fall in home, subsequent encounter Other fracture of unspecified thoracic vertebra, initial encounter for closed fracture (HCC) Closed fracture of ramus of right pubis with routine healing, subsequent encounter Procedures PT REHAB FOLLOW UP ORDER THERAPEUTIC EXERCISES RE, EA 15 MIN. Jg Howard, PT, DPT [facility] [place] [address] [place] [address] Referral ID Status Reason Start Date Expiration Date Visits Requested Visits Authorized [id number] Authorized PCP Requested Referral Auto-Generate d Referral 06/01/2024 11/21/2024 8 8 Reason Comments Patient Question Reason Comments Follow Up 6 week follow up Reason Comments Pain Left lower leg pain x1.5 months on and off Reason Comments Radiology US Specialty Diagnoses / Procedures Referred By Contac t Referred To Contact [facility] IMAGING Diagnoses Pain in right lower leg Procedures US DVT LOWER RIGHT DUP-SCAN XTR VEINS UNILATERAL/LIMITED STUDY [employer], SHELLY Bishop.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 [address] [place] [address] [place] [address] Referral ID Status Reason Start Date Expiration Date V isits Requested Visits Authorized [id number] Closed Auto-Generate d Referral 07/31/2024 08/30/2025 1 1 Reason Onset Date Comments Refill Request 08/23/2024 Reason Comments Follow Up 6 month Reason Comments Recheck Low back pain Reason Comments Follow Up Reason Onset Date Comments Population Health Navigation Outreach 11/13/2024 [employer] Initiative Reason Comments Medication Question Care Teams (unrecognized sec tion and content) 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 Machine 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 Relationship Specialty Start Date End Date Elan Garcia MD [address] [place], [place] [id number] PCP - General Family Practice 10/23/20 Calculating Machine Operator Relationship Specialty Start Date End Date Elan Garcia MD [address] [place] [address] PCP - General Family Practice 10/23/20 Calculating Machine Operator Relationship Specialty Start Date End Date Elan Garcia MD [address] [place] [address] PCP - General Family Practice 10/23/20 Calculating Machine Operator Relationship Specialty Start Date End Date Elan Garcia MD [address] [place] [address] PCP - General Family Practice 10/23/20 Calculating Machine Operator Relationship Specialty Start Date End Date Elan Garcia MD [address] [place] [address] PCP - General Family Practice 10/23/20 Calculating Machine Operator Relationship Specialty Start Date End Date Elan Garcia MD [address] [place] [address] PCP - General Family Practice 10/23/20 Calculating Machine Operator Relationship Specialty Start Date End Date Elan Garcia MD [address] [place] [address] PCP - General Family Practice 10/23/20 Calculating Machine Operator Relationship Specialty Start Date End Date Elan Garcia MD [address] [place] [address] PCP - General Family Practice 10/23/20 Calculating Machine Operator Relationship Specialty Start Date End Date Elan Garcia MD [address] [place] [address] PCP - General Family Practice 10/23/20 Calculating Machine Operator Relationship Specialty Start Date End Date Elan Garcia MD [address] [place] [address] PCP - General Family Practice 10/23/20 Calculating Machine Operator Relationship Specialty Start Date End Date Elan Garcia MD [address] [place] [address] PCP - General Family Practice 10/23/20 Calculating Machine Operator Relationship Specialty Start Date End Date Elan Garcia MD [address] [place] [address] PCP - General Family Practice 10/23/20 Calculating Machine Operator Relationship Specialty Start Date End Date Elan Garcia MD [address] [place] [address] PCP - General Family Practice 10/23/20 Calculating Machine Operator Relationship Specialty Start Date End Date Elan Garcia MD [address] [place] [address] PCP - General Family Medicine 10/23/20 Calculating Machine Operator Relationship Specialty Start Date End Date Elan Garcia MD [address] [place] [address] PCP - General Family Medicine 10/23/20 Calculating Machine Operator Relationship Specialty Start Date End Date Elan Garcia MD [address] [place] [address] PCP - General Family Medicine 10/23/20 Calculating Machine Operator Relationship Specialty Start Date End Date Elan Garcia MD [address] [place] [address] PCP - General Family Medicine 10/23/20 Calculating Machine Operator Relationship Specialty Start Date End Date Elan Garcia MD [address] [place] [address] PCP - General Family Medicine 10/23/20 Calculating Machine Operator Relationship Specialty Start Date End Date Elan Garcia MD [address] [place] [address] PCP - General Family Medicine 10/23/20 Team Status: Active Member Role Status Dates Dr. Kasey Bashir MD Family Provider Active Dr. Pastor Garcia MD Primary Care Provider Acti ve Team Status: Active Member Role Status Dates Dr. Pastor Garcia MD Primary Care Provider Acti ve Dr. Cory Anaya DO Emergency Provider Active Dr. Erik Yoder MD Attending Provider Active Team Status: Active Member Role Status Dates Dr. Pastor Garcia MD Primary Care Provider Acti ve Dr. Cory Anaya DO Emergency Provider Active Dr. Erik Yoder MD Admit Provider, Attending Pro vider Active Team Status: Active Member Role Status Dates Dr. Pastor Garcia MD Primary Care Provider Acti ve Dr. Saida Maki MD Attending Provider Activ e Team Status: Active Member Role Status Dates Dr. Pastor Garcia MD Primary Care Provider Acti ve Dr. Ravin Ham MD Attending Provider Active Team Status: Active Member Role Status Dates Dr. Pastor Garcia MD Primary Care Provider Acti ve Dr. Cory Anaya DO Emergency Provider Active Dr. Erik Yoder MD Admit Provider, Other Provide r Active Dr. Dana Lux DO Attending Provider, Other Provide r Active Team Status: Inactive Member Role Status Dates Dr. Pastor Garcia MD Primary Care Provider Acti ve Dr. Cory Anaya DO Emergency Provider Active Dr. Erik Yoder MD Admit Provider, Other Provide r Active Dr. Dana Lux DO Attending Provider Active Calculating Machine Operator Relationship Specialty Start Date End Date Elan Garcia MD [address], [place] [id number] PCP - General Family Medicine 10/23/20 Team Status: Active Member Role Status Dates Dr. Pastor Garcia MD Primary Care Provider Acti ve Dr. Ravin Ham MD Attending Provider Active Dr. Dana Lux DO Referring Provider Active Team Status: Inactive Member Role Status Dates Dr. Pastor Garcia MD Primary Care Provider, Ref erring Provider Active Dr. Lei Sung MD Attending Provider Active Team Status: Inactive Member Role Status Dates Dr. Pastor Garcia MD Primary Care Provider Acti ve Dr. Lei Sung MD Attending Provider, Referring Provi cresencio Active Team Status: Active Member Role Status Dates Dr. Pastor Garcia MD Primary Care Provider Acti ve Dr. Lei Sung MD Attending Provider Active Team Status: Inactive Member Role Status Dates Dr. Pastor Garcia MD Primary Care Provider Acti ve Dr. Lei Sung MD Attending Provider Active Team Status: Inactive Member Role Status Dates Dr. Pastor Garcia MD Primary Care Provider Acti ve Dr. Lei Sung MD Attending Provider, Referring Provi cresencio Active Alejandra Ascencio [employer] Other Provider Active Calculating Machine Operator Relationship Specialty Start Date End Date Elan Garcia MD [address] [place] [address] PCP - General Family Medicine 10/23/20 Calculating Machine Operator Relationship Specialty Start Date End Date Elan Garcia MD [address] [place] [address] PCP - General Family Medicine 10/23/20 Calculating Machine Operator Relationship Specialty Start Date End Date Elan Garcia MD [address] [place] [address] PCP - General Family Medicine 10/23/20 Team Status: Inactive Member Role Status Dates Dr. Pastor Garcia MD Primary Care Provider Acti ve Dr. Juan Liu MD Attending Provider Active Team Status: Inactive Member Role Status Dates Dr. Pastor Garcia MD Primary Care Provider Acti ve Dr. Kyle Torres DO Emergency Provider Active Calculating Machine Operator Relationship Specialty Start Date End Date Elan Garcia MD [address] [place] [address] PCP - General Family Medicine 10/23/20 Calculating Machine Operator Relationship Specialty Start Date End Date Elan Garcia MD [address] [place] [address] PCP - General Family Medicine 10/23/20 Calculating Machine Operator Relationship Specialty Start Date End Date Elan Garcia MD [address] [place] [address] PCP - General Family Medicine 10/23/20 Calculating Machine Operator Relationship Specialty Start Date End Date Elan Garcia MD [address] [place] [address] PCP - General Family Medicine 10/23/20 Calculating Machine Operator Relationship Specialty Start Date End Date Elan Garcia MD [address] [place] [address] PCP - General Family Medicine 10/23/20 Calculating Machine Operator Relationship Specialty Start Date End Date Elan Garcia MD [address] [place] [address] PCP - General Family Medicine 10/23/20 Calculating Machine Operator Relationship Specialty Start Date End Date Elan Garcia MD [address] [place] [address] PCP - General Family Medicine 10/23/20 Calculating Machine Operator Relationship Specialty Start Date End Date Elan Garcia MD [address] [place] [address] PCP - General Family Medicine 10/23/20 Calculating Machine Operator Relationship Specialty Start Date End Date Elan Garcia MD [address] [place] [address] PCP - General Family Medicine 10/23/20 Calculating Machine Operator Relationship Specialty Start Date End Date Elan Garcia MD [address] [place] [address] PCP - General Family Medicine 10/23/20 Calculating Machine Operator Relationship Specialty Start Date End Date Elan Garcia MD [address] [place] [address] PCP - General Family Medicine 10/23/20 Calculating Machine Operator Relationship Specialty Start Date End Date Elan Garcia MD [address] [place] [address] PCP - General Family Medicine 10/23/20 Calculating Machine Operator Relationship Specialty Start Date End Date Elan Garcia MD [address] [place] [address] PCP - General Family Medicine 10/23/20 Calculating Machine Operator Relationship Specialty Start Date End Date Elan Garcia MD [address] [place] [address] PCP - General Family Medicine 10/23/20 Calculating Machine Operator Relationship Specialty Start Date End Date Elan Garcia MD [address] [place] [address] PCP - General Family Medicine 10/23/20 Calculating Machine Operator Relationship Specialty Start Date End Date Elan Garcia MD [address] [place] [address] PCP - General Family Medicine 10/23/20 Calculating Machine Operator Relationship Specialty Start Date End Date Elan Garcia MD [address] [place] [address] PCP - General Family Medicine 10/23/20 Calculating Machine Operator Relationship Specialty Start Date End Date Elan Garcia MD [address] [place] [address] PCP - General Family Medicine 10/23/20 Calculating Machine Operator Relationship Specialty Start Date End Date Elan Garcia MD [address] [place] [address] PCP - General Family Medicine 10/23/20 Calculating Machine Operator Relationship Specialty Start Date End Date Elan Garcia MD [address] [place] [address] PCP - General Family Medicine 10/23/20 Calculating Machine Operator Relationship Specialty Start Date End Date Elan Garcia MD [address] [place] [address] PCP - General Family Medicine 10/23/20 Calculating Machine Operator Relationship Specialty Start Date End Date Elan Garcia MD [address] [place] [address] PCP - General Family Medicine 10/23/20 Calculating Machine Operator Relationship Specialty Start Date End Date Elan Garcia MD [address] [place] [address] PCP - General Family Medicine 10/23/20 Edna Loco APRN.CNP [address] [place] [address] Technical Documentation Specialist Family Medicine 10/28/24 Calculating Machine Operator Relationship Specialty Start Date End Date Elan Garcia MD [address] [place] [address] PCP - General Family Medicine 10/23/20 PodlogarEdna APRN.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 [address] [facility] [place] [address] Technical Documentation Specialist Family [facility] 10/28/24 Calculating Machine Operator Relationship Specialty Start Date End Date Elan Garcia MD [address] [place] [address] PCP - General Family Medicine 10/23/20 PodlogarEdna APRN.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 [address] [place] [address] Technical Documentation Specialist [facility] 10/28/24 Team Status: Active Member Role/Relationship Status Dates Dr. Yon Salas MD Primary Care Provider Active Team Status: Inactive Member Role/Relationship Status Dates Dr. Pastor Garcia MD Referring Provider Active Start: May 18, 2025 End: May 18, 2025 Dr. Lei Sung MD Attending Provider Active Sta rt: May 18, 2025 End: May 18, 2025 Dr. Yon Salas MD Primary Care Provider Active Start: May 18, 2025 End: May 18, 2025 Team Status: Inactive Member Role/Relationship Status Dates Dr. Yon Salas MD Primary Care Provider Active Start: May 21, 2025 End: May 21, 2025 Dr. Yon Salas MD Attending Provider Active Start: May 21, 2025 End: May 21, 2025 Dr. Yon Salas MD Referring Provider Active Start: May 21, 2025 End: May 21, 2025 Dr. Lei Sung MD Other Provider Active Start: May 21, 2025 End: May 21, 2025 Goals (unrecognized section and content) Goals may be documented in a n alternate sectionGoals may be documented in an alternate sectionGoals may be documented in an alternate sectionGoals may be documented in an alternate sectionGoals may be documented in an alternate sectionGoals may be documented in an alternate sectionGoals may be documented in an alternate sectionGoals may be documented in an alternate sectionGoals may be documented in an alternate sectionGoals may be documented in an alternate sectionGoals may be documented in an alternate section FOR RECORDS PERTAINING TO PATIENTS WHO ARE [...] BE BASED ON THE PRIMARY CLINICAL RECORDS. [facility] [employer] provides no warranty or guarantee of the accuracy or completeness of information in this document.
--- OUTSIDE RECORDS SUMMARY | 2025-06-05 22:22 | XMS RPT_ITS | CCD ---
Author Organization [facility] CliniSymd Care Team Providers Care Financial Sales Representative Name Role Phone LEONARD JUSTICE Unavailable Unavailable LEONARD JUSTICE Unavailable Unavailable Elan Gacria MD Primary Care Provider Dr. Kasey Bashir Primary Care Provider Dr. Kasey Bashir Referring Provider Dr. Lei Sung Attending Provider Elan Garcia MD Primary Care Provider Elan Garcia MD Primary Care Provider Elan Garcia MD Primary Care Provider Dr. Pastor Garcia Primary Care Provider [phone] Dr. Cory Anaya Emergency Provider Dr. Erik Yoder Attending Provider Dr. Ravin Ham Attending Provider [phone] Saida Maki Attending Provider Dr. Erik Yoder Admit Provider Dr. Erik Yoder Other Provider Dr. Dana Lux Attending Provider Dr. Dana Lux Other Provider Dr. Dana Lux Referring Provider Dr. Pastor Garcia Referring Provider Dr. Lei Sung Attending Provider Dr. Pastor Garcia Primary Care Provider Dr. Juan Liu Attending Provider Elan Garcia MD Primary Care Provider Podlogar AUTOMOTIVE STARTER REPAIRER.Edna CHARLES Unavailable ELAN GARCIA Primary Care Unavailab le ELAN GARCIA Referring Unavailab le Blanca'PHOENIX, CATHERINE Attending Unavailable ELAN GARCIA Primary Care Unavailab ELAN Cline Attending Unavailab LEAN Cline Primary Care Unavailab le PODLOGAR, EDNA [...] Dr. Yon Salas MD, Chi Attending Provider Dr. Yon Salas MD, Chi Referring Provider [...] [MELOXICAM] Drug Allergy 03-16-20 13 GI Upset [facility] Repository (20 sources) Penicillins; Translations: [PENICILLINS] Propensity to adverse reactions to drug (disorder) 08-02-20 02 Hives [facility] Repository (20 sources) rofecoxib; Translations: [ROFECOXIB] Drug Allergy 03-16-20 13 GI [facility] Repository (20 sources) Acetaminophen / HYDROcodone; Translations: [HYDROCODONE-ACETA MINOPHEN] Drug Allergy 02-22-20 19 Other: See Comments [facility] (20 sources) Nitrofurantoin; Translations: [NITROFURANTOIN] Drug Allergy 02-22-20 19 Other: See Comments [facility] (1 source) Nitrofurantoin Drug Allergy 05-18-20 [facility] Repository Medications Current Medications Medication Drug Class(es) Dates Sig (Normalized) Sig (Original) Acetaminophen (Tylenol Extra Strength) 500 mg powder in packet (2 sources) Start: 05-18-2025 take 500-1000 mg by mouth every six hours as needed Acetaminophen (Tylenol Extra Strength) 500 mg powder in packet Active 500 - 1000 mg PO EVERY 6 HOURS as needed May 18, 2025 12:00am [id number] 200 actuat albuterol 0.09 mg/actuat metered dose [...] vitamin Start: 08-19-2018 take 1000 [IU] by [facility] once daily Cholecalciferol (Vitamin D3) Active 1000 UNIT PO DAILY August 18, 2018 11:00pm Start: 10-11-2017 take 1 capsule by [facility] once daily Cholecalciferol, Vitamin D3, 1,000 unit cap Take 1 capsule by mouth once daily. 10/11/2017 Active Comment on above: Take 1 capsule by [facility] once daily. CYANOCOBALAMIN, VITAMIN B-12, ORAL (20 [...] take 1.25 mg by mouth at bedti tn Enalapril Maleate Active 1.25 MG PO AT BEDTIME August 19, 2018 12:00am Comment on above: Take 1 tablet by [facility] once daily. estradiol 0.1 mg/ml vaginal cream [...] Comment on above: Take 1 capsule by [facility] three times daily as needed for cough. [...] capsule 2 11/06/2020 01/02/2021 Discontinued estrogens, conjugated (nursing home) 0.625 mg/ml vaginal cream (20 sources) Estrogen [...] sources) Bisphosphonate Start: 04-29-2020 End: 04-24-2021 Zoledronic Ltot-Tufjipze-Kvg er 5 mg/100 mL piggyback Discontinued 5 [...] Viewson Cerv Spine 2 or 3 Views [facility] Imaging Services [address] [place], [place] [id number] Cerv Spine 2 or 3 Views MR#: [id number] Acct: [id number] Name: DORA BRYANT Rep #: [id number] : 1945 F 80 From: Zhou Andersen MD PCP: Dr. Yon Salas MD Status: REG CLI Study: Cerv Spine 2 or 3 Views Date of Exam: 05/21/25 Exam# [id number] Ordering Dr: Yon Salas MD PROCEDURE: CERV [...] worst at C5-6 and C6-7. Reading Location: [id number] CC: Dr. Yon Salas MD Forensic Manager: Signed Normal [facility] Free T3on 05-21-2025 Free T3 [Mass/Vol] 2.1 pg/mL Low 2.18-3.98 [facility] Comment on above: Performed By: #### L 506.0400, L501.89408 #### [facility] [address] [place], [place], [address] Free H0Nfabves By: Lei Sung on 05-21-2025 Free T3 [Mass/Vol] 2.1 pg/mL Low 2.18-3.98 [facility] L/S Spine Min 4 Viewson 04-24 L/S Spine Min 4 Views [facility] Imaging Services [address] [place] [address] L/S Spine Min 4 Views MR#: [id number] Acct: [id number] Name: DORA BRYANT Rep #: [id number] : 1945 F 80 From: Zhou Andersen MD PCP: Dr. Yon Salas MD Status: REG CLI Study: L/S Spine Min 4 Views Date of Exam: 05/21/25 Exam# [id number] Ordering Dr: Yon Salas MD PROCEDURE: L/S SPINE MIN 4 VIEWS 05/21/2025 REASON FOR EXAM: LOW BACK PAIN TECHNIQUE: L/S SPINE MIN 4 VIEWS COMPARISON: Lumbar spine radiographs on 05/11/2024 FINDINGS: There are 5 bsl-nkq-edlvnlk lumbar-type vertebral bodies. Vertebral body heights are maintained. There is a proximally 5 mm anterolisthesis of L5 on S1, unchanged. No pars defect identified on the oblique images. Lfju-jz-ythaknwo multilevel disc height loss and endplate osteophyte formation with facet arthrosis, worst at L3-4 through L5-S1. Aortic atherosclerosis. RAD/L/S Spine Min 4 Views IMPRESSION: Fvsv-ow-stgqckio degenerative changes of the lumbar spine, worst from L3-4 through L5-S1 and progressed since radiographs on 05/11/2024. Reading Location: [id number] CC: Dr. Yon Salas MD Forensic Manager: Signed Normal [facility] T4 Free Directon 05-21-2025 T4 FREE DIRECT 0.80 ng/dL Normal 0.76-1.46 [facility] Comment on above: Performed By: #### L 506.0400, L501.10342 #### [facility] [address] [place], [address] T4 freeOrdered By: Lei Sung on 05-21-2025 Free T4 [Mass/Vol] 0.80 ng/dL 0.76-1.46 [facility] Thoracic Spine 3 Viewson Thoracic Spine 3 Views [facility] Imaging Services [address] [place], [place] [address] Thoracic Spine 3 Views MR#: [id number] Acct: [id number] Name: DORA BRYANT Rep #: [id number] : 1945 F 80 From: Zhou Andersen MD PCP: Dr. Yon Salas MD Status: REG CLI Study: Thoracic Spine 3 Views Date of Exam: 05/21/25 Exam# [id number] Ordering Dr: Yon Salas MD PROCEDURE: THORACIC SPINE 3 VIEWS 05/21/2025 REASON FOR EXAM: THORACIC BACK PAIN TECHNIQUE: THORACIC SPINE 3 VIEWS COMPARISON: Thoracic spine radiographs 05/11/2024 FINDINGS: Slight anterior wedging of several upper thoracic vertebral bodies, unchanged from 05/11/2024. Thoracic vertebral body heights are otherwise maintained. There is mild leftward curvature of the thoracic spine. Bzud-lq-iuntwvvi multilevel disc height loss with endplate osteophyte formation. The visualized lungs are clear. Aortic atherosclerosis. RAD/Thoracic Spine 3 Views IMPRESSION: 1. Mild to moderate multilevel degenerative changes of the thoracic spine. 2. Slight anterior wedging of several upper thoracic vertebral bodies is unchanged from 05/11/2024. Reading Location: [id number] CC: Dr. Yon Salas MD Forensic Manager: Signed Normal [facility] Endocrinology Visit Reporton 05-18-2025 Endocrinology Visit Report [facility] 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 Normal [facility] CBC W/Diff, Automatedon 02- 0-2024 Absolute Lymph 1.92 X10 3/uL Normal 0.83-4.51 [facility] Comment on above: Performed By: #### L 500.4100, L501.9520, L506.1000, L100.0100, L500.4050 #### [facility] [address] [place], [address] Absolute Neut 9.3 X10 3/uL High 2.0-7.7 [facility] Comment on above: Performed By: #### L 500.4100, L501.9520, L506.1000, L100.0100, L500.4050 #### [facility] [address] [place], [address] Basophils/100 WBC (Bld) 0.6 % Normal 0-1 [facility] Comment on above: Performed By: #### L 500.4100, L501.9520, L506.1000, L100.0100, L500.4050 #### [facility] [address] [place], [address] Eosinophils/100 WBC (Bld) 2.6 % Normal 0-5 [facility] Comment on above: Performed By: #### L 500.4100, L501.9520, L506.1000, L100.0100, L500.4050 #### [facility] [address] [place], [address] Erythrocyte distribution width (RBC) [Ratio] 14.1 % Normal 11.6-14.6 [facility] Comment on above: Performed By: #### L 500.4100, L501.9520, L506.1000, L100.0100, L500.4050 #### [facility] [address] [place], [address] Hematocrit (Bld) [Volume fraction] 46.7 % Normal 37-47 [facility] Comment on above: Performed By: #### L 500.4100, L501.9520, L506.1000, L100.0100, L500.4050 #### [facility] [address] [place], [address] Hemoglobin (Bld) [Mass/Vol] 15.1 g/dL High 12.0-15.0 [facility] Comment on above: Performed By: #### L 500.4100, L501.9520, L506.1000, L100.0100, L500.4050 #### [facility] [address] [place], [address] IG% 0.500 Normal 0.0-0.9 [facility] Comment on above: Result Comment: IG% - Immature Granulocytes (promyelocytes, myelocytes and metamyelocytes) > 1% indicates that a LEFT SHIFT is Present. Performed By: #### L 500.4100, L501.9520, L506.1000, L100.0100, L500.4050 #### [facility] [address] [place], [address] Lymphocytes/100 WBC (Bld) 15.5 % Low 19-41 [facility] Comment on above: Performed By: #### L 500.4100, L501.9520, L506.1000, L100.0100, L500.4050 #### [facility] [address] [place], [address] MCH (RBC) [Entitic mass] 30.8 pg Normal 27.0-32.0 [facility] Comment on above: Performed By: #### L 500.4100, L501.9520, L506.1000, L100.0100, L500.4050 #### [facility] [address] [place], [address] MCHC (RBC) [Mass/Vol] 32.3 g/dL Normal 32-36 [facility] Comment on above: Performed By: #### L 500.4100, L501.9520, L506.1000, L100.0100, L500.4050 #### [facility] [address] [place], [address] MCV (RBC) [Entitic vol] 95.3 fL Normal 81-99 [facility] Comment on above: Performed By: #### L 500.4100, L501.9520, L506.1000, L100.0100, L500.4050 #### [facility] [address] [place], [address] Monocytes/100 WBC (Bld) 5.5 % Normal 0-10 [facility] Comment on above: Performed By: #### L 500.4100, L501.9520, L506.1000, L100.0100, L500.4050 #### [facility] [address] [place], [address] Neutrophils/100 WBC (Bld) 75.3 % High 47-70 [facility] Comment on above: Performed By: #### L 500.4100, L501.9520, L506.1000, L100.0100, L500.4050 #### [facility] [address] [place], [address] Nucleated RBC (Bld) [#/Vol] 0 10*3/uL Normal 0-5 [facility] Comment on above: Performed By: #### L 500.4100, L501.9520, L506.1000, L100.0100, L500.4050 #### [facility] [address] [place], [address] Platelet mean volume (Bld) [Entitic vol] 9.9 fL Normal 6.2-12.0 [facility] Comment on above: Performed By: #### L 500.4100, L501.9520, L506.1000, L100.0100, L500.4050 #### [facility] [address] [place], [address] Platelets (Bld) [#/Vol] 319 10*3/uL Normal 150-450 [facility] Comment on above: Performed By: #### L 500.4100, L501.9520, L506.1000, L100.0100, L500.4050 #### [facility] [address] [place], [address] RBC (Bld) [#/Vol] 4.90 10*6/uL Normal 4.2-5.4 [facility] Comment on above: Performed By: #### L 500.4100, L501.9520, L506.1000, L100.0100, L500.4050 #### [facility] [address] [place], [address] RDW SD 49.9 fl High 35.1-43.9 [facility] Comment on above: Performed By: #### L 500.4100, L501.9520, L506.1000, L100.0100, L500.4050 #### [facility] [address] [place], [address] WBC (Bld) [#/Vol] 12.4 10*3/uL High 4.4-11.0 [facility] Comment on above: Performed By: #### L 500.4100, L501.9520, L506.1000, L100.0100, L500.4050 #### [facility] [address] [place], [address] Comprehensive Metabolic Prof ilon 01-11-2025 Albumin [Mass/Vol] 3.7 g/dL Normal 3.2-5.0 [facility] Comment on above: Performed By: #### L 500.4100, L501.9520, L506.1000, L100.0100, L500.4050 #### [facility] [address] [place], [address] Albumin/Globulin [Mass ratio] 1.1 {ratio} Normal 0.9-2.4 [facility] Comment on above: Performed By: #### L 500.4100, L501.9520, L506.1000, L100.0100, L500.4050 #### [facility] [address] [place], [address] ALK P 92 U/L Normal 45-117 [facility] Comment on above: Performed By: #### L 500.4100, L501.9520, L506.1000, L100.0100, L500.4050 #### [facility] [address] [place], [address] ALT [Catalytic activity/Vol] 18 U/L Normal 13-56 [facility] Comment on above: Performed By: #### L 500.4100, L501.9520, L506.1000, L100.0100, L500.4050 #### [facility] [address] [place], [address] AST [Catalytic activity/Vol] 19 U/L Normal 15-37 [facility] Comment on above: Performed By: #### L 500.4100, L501.9520, L506.1000, L100.0100, L500.4050 #### [facility] [address] [place], [address] Bilirubin [Mass/Vol] 0.40 mg/dL Normal 0.20-1.00 [facility] Comment on above: Result Comment: For patients on eltrombopag therapy, use of Dimension [place] TBIL is not recommended. Performed By: #### L 500.4100, L501.9520, L506.1000, L100.0100, L500.4050 #### [facility] [address] [place], [address] BUN/CRE 13.1 RATIO Normal 10-20 [facility] Comment on above: Performed By: #### L 500.4100, L501.9520, L506.1000, L100.0100, L500.4050 #### [facility] [address] [place], [address] CA,Total 9.0 mg/dL Normal 8.5-10.1 [facility] Comment on above: Performed By: #### L 500.4100, L501.9520, L506.1000, L100.0100, L500.4050 #### [facility] [address] [place], [address] Chloride [Moles/Vol] 108 mmol/L High 98-107 [facility] Comment on above: Performed By: #### L 500.4100, L501.9520, L506.1000, L100.0100, L500.4050 #### [facility] [address] [place], [address] CO2 [Moles/Vol] 28.0 mmol/L Normal 21.0-32.0 [facility] Comment on above: Performed By: #### L 500.4100, L501.9520, L506.1000, L100.0100, L500.4050 #### [facility] [address] [place], [address] Creatinine [Mass/Vol] 1.07 mg/dL High 0.55-1.02 [facility] Comment on above: Result Comment: The validity of the calculated GFR GFRAA in patients over 70 years has not been determined. Clinical correlation is essential. Performed By: #### L 500.4100, L501.9520, L506.1000, L100.0100, L500.4050 #### [facility] [address] [place], [address] EST GFR - AA 64 mL/min Normal >60 [facility] Comment on above: Result Comment: Afri can [place]cu[place]orean GFR Calc Performed By: #### L 500.4100, L501.9520, L506.1000, L100.0100, L500.4050 #### [facility] [address] [place], [address] GAP 5 Normal 5-15 [facility] Comment on above: Performed By: #### L 500.4100, L501.9520, L506.1000, L100.0100, L500.4050 #### [facility] [address] [place], [address] GFR/1.73 sq M.predicted among non-blacks MDRD (S/P/Bld) [Vol rate/Area] 53 mL/min/{1.73_m2} Low >60 [facility] Comment on above: Result Comment: Non- GFR Calc Performed By: #### L 500.4100, L501.9520, L506.1000, L100.0100, L500.4050 #### [facility] [address] [place], [address] Globulin (S) [Mass/Vol] 3.3 g/dL Normal 2.2-4.2 [facility] Comment on above: Performed By: #### L 500.4100, L501.9520, L506.1000, L100.0100, L500.4050 #### [facility] [address] [place], [address] Glucose [Mass/Vol] 83 mg/dL Normal 74-106 [facility] Comment on above: Performed By: #### L 500.4100, L501.9520, L506.1000, L100.0100, L500.4050 #### [facility] [address] [place], [address] Potassium [Moles/Vol] 3.7 mmol/L Normal 3.5-5.1 [facility] Comment on above: Performed By: #### L 500.4100, L501.9520, L506.1000, L100.0100, L500.4050 #### [facility] [address] [place], [address] Sodium [Moles/Vol] 141 mmol/L Normal 136-145 [facility] Comment on above: Performed By: #### L 500.4100, L501.9520, L506.1000, L100.0100, L500.4050 #### [facility] [address] [place], [address] T PROT 7.0 g/dL Normal 6.4-8.2 [facility] Comment on above: Performed By: #### L 500.4100, L501.9520, L506.1000, L100.0100, L500.4050 #### [facility] [address] [place], [address] Urea nitrogen [Mass/Vol] 14 mg/dL Normal 7-18 [facility] Comment on above: Performed By: #### L 500.4100, L501.9520, L506.1000, L100.0100, L500.4050 #### [facility] [address] [place], [address] Hepatitis C Antibodyon 01-11 Hepatitis C AB Non-Reactive Normal Nonreactive [facility] Comment on above: Result Comment: Non Reactive: < 0.8 Equivocal: >/= 0.8 to < 1.0 Reactive: >/= 1.0 The [facility] requires that a reactive/equivocal HCV antibody result be sent out for confirmation. HCV Quant by PCR testing. Performed By: #### L 3890.6300 #### [facility] [address] [place], [address] Lipid Profileon 01-11-2025 Cholesterol [Mass/Vol] 212 mg/dL High 200 [facility] Comment on above: Result Comment: <200 mg/dL Desirable 200-240 mg/dL Borderline >240 mg/dL High Risk Performed By: #### L 500.4100, L501.9520, L506.1000, L100.0100, L500.4050 ####[facility] [address] [place], [address] Cholesterol in HDL [Mass/Vol] 59 mg/dL Normal [facility] Comment on above: Result Comment: The drugs N-Acetylcysteine and Metamizole may falsely depress this assay. Reference Range HDL <40 mg/dL Low HDL Cholesterol HDL >or= 60 mg/dL High HDL Cholesterol Performed By: #### L 500.4100, L501.9520, L506.1000, L100.0100, L500.4050 ####[facility] [address] [place], [address] Cholesterol in LDL [Mass/Vol] 123 mg/dL Normal 0-130 [facility] Comment on above: Performed By: #### L 500.4100, L501.9520, L506.1000, L100.0100, L500.4050 ####[facility] [address] [place], [address] Cholesterol in VLDL [Mass/Vol] 30 mg/dL Normal 5-40 [facility] Comment on above: Performed By: #### L 500.4100, L501.9520, L506.1000, L100.0100, L500.4050 ####[facility] [address] [place], [address] Triglyceride [Mass/Vol] 150 mg/dL Normal [facility] Comment on above: Result Comment: The drugs N-Acetylcysteine and Metamizole may falsely depress this assay. Serum Triglycerides Reference Interval Normal <150 mg/dL Borderline high 150 - 199 mg/dL High 200 - 499 mg/dL Very High > or = 500 mg/dL Performed By: #### L 500.4100, L501.9520, L506.1000, L100.0100, L500.4050 ####[facility] [address] [place], [place], [address] Thyroid Stim Hormone (TSH)on 01-11-2025 TSH 1.240 uIU/mL Normal 0.358-3.740 [facility] Comment on above: Performed By: #### L 500.4100, L501.9520, L506.1000, L100.0100, L500.4050 ####[facility] [address] [place], [address] Vitamin D,25 Hydroxyon 01-11 Vitamin D 25-OH 54.4 ng/mL Normal [facility] Comment on above: Result Comment: Mary min D 25(OH) Status Range Deficiency <20 ng/mL (50nmol/L) Insufficiency 20 - 30 ng/mL (50 - 75 nmol/L) Sufficiency 30 - 100 ng/mL (75 - 250 nmol/L) Toxicity >100 ng/mL (>250 nmol/L) Performed By: #### L 500.4100, L501.9520, L506.1000, L100.0100, L500.4050 ####[facility] [address] [place], [place], [address] CNPInessa 12-12-2024 CNPN Telephone (FAMPWS) DORA BRYANT ([id number]) 1945 F Date Time Provider Department 12/12/24 [...] appt scheduled in April 2025 (MR # [id number]) has appt scheduled in March 2025 plus he is scheduled to complete labs on 01-01-25 Please advise patient: [phone]. Elan Garcia MD 12/13/2024 6:57 AM Signed [facility] determines which insurances they accept. This question needs directed to [employer]. Ina Beach RN 12/13/2024 8:06 AM Signed Phoned patient and given provider's message below with verbalized understanding. Patient agreeable to contact [employer]. Allergies As of Date: 12/12/2024 Noted Allergy [...] Fully Assessed Reason for Visit: Patient Question [9796] Prescriptions as of 12/13/2024 - cyclobenzaprine (FLEXERIL) [...] [K21.9] 04/26/2007 Routine general medical examination at [facility]*04/22/2009 04/15/2016 Benign Neoplasm of Colon [D12.6] 04/22/2009 [...] 07/07/2011 04/15/2016 Tongue discoloration: angioma and capillary mairna*07/07/2011 04/15/2016 [place] angiomas [D18.01] 07/07/2011 04/15/2016 Solar [...] [place] (more content not included)... Normal [facility] ([id number]) 1945 F Date Time Provider Department 11/20/24 [...] Signed Pt notified of provider message. Марина Araiza LPN Allergies As of Date: 11/20/2024 Noted [...] [K21.9] 04/26/2007 Routine general medical examination at [facility]*04/22/2009 04/15/2016 Benign Neoplasm of Colon [D12.6] 04/22/2009 [...] Status:Closed by МАРИНА ARAIZA on 11/20/24 Normal [facility] Office Visit Reporton 2023 Office Visit Report [facility] [address] [place] [address] OFFICE VISIT Date of Service: 11/17/24 MR#: [id number] Acct: [id number] Patient: DORA BRYANT Rep #: [id number] : 1945 Provider: Ina Herron Age/Sex: 79/F Location: [facility] Status: Signed Intake Vital Signs 05/18/24 14:53 [...] Procedure performed by: Lb Grant Lot number: [id number] Chiropractic Care: [employer] date: 03/21/27 Dose of injection: 1 mL Site of injection: Sub-Q Medication Given: Yes Is this a patient provided medication?: No Office Meds Prolia 60 mg/mL subcutaneous syringe Performing Provider: Lei Sung MD Performing Location: [facility] Administered by: Lb Grant RN on 11/17/24 08:49 Dose Route Admin Location Dispensed Lot Number Expiration Date [facility] Man ufacturer 60 mg subcut Left Arm 1 mL [id number] 03/21/27 04036-059-00 AMGEN Assessment and Plan Assessment and Plan [...] Lei Camacho Signature: [facility] (if applicable) [facility] Office Visit (FAMPWS ) DORA BRYANT ([id number]) 1945 F Date Time Provider Department 10/27/24 [...] products Panhypopituitarism/HYPOTHYROI DISM: Follows with 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. Last office visit in April. Has upcoming [...] syndrome CKD (chronic kidney disease), stage III ([facility]) Closed rib fracture 5,6,7,8,9,10 from [...] workup negative. 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 Sung-endocrinology Pituitary adenoma ([facility]) repeat MRI in 2024 Retinal tear, right s/p laser Sprain of neck Urinary tract infection, site not specified ALLERGIES Meloxicam, Nitrofurantoin, [place] [Hydrocodone-Acetaminophen], Penicillins, and Vioxx [Rofecoxib] MEDICATIONS Current [...] 4.1 Ca (more content not included)... Normal [facility] Leon 09-26-2024 ARACELIN Telephone (DURGA) DORA BRYANT ([id number]) 1945 F Date Time Provider Department 09/26/24 [...] Contains abnormal data URINALYSIS, WITH MICROSCOPIC Order: [id number] Status: Final result Visible to patient: Yes [...] Negative Negative Negative Negative Negative Negative Specific [place], Ur 1.005 - 1.030 1.019 1.022 1.004 [...] Cholecalciferol, V (more content not included)... [facility] ([id number]) 1945 F Date Time Provider Department 09/26/24 ELAN GARCIA During your visit today, we recorded the following information about you: Марина Araiza LPN 09/26/2024 4:11 PM Signed Pt calls to check on culture results. Advised pt they are still in process. Pt reports she is now running a fever. MANOJ De Santiago Joy, APRN.MEETING MANAGER 09/27/2024 7:38 AM Addendum Culture resulted without [...] thoracic vertebra*06/01/2024 (more content not included)... Normal [facility] Bacteria Ur Culton Bacteria identified Cx Nom (U) ORGANISM ID: 1 10,000 -<50,000 CFU/ml Normal urogenital riana Normal [facility] Comment on above: Performed By: #### 6 30-4 ####[facility] LABCLIA [id number] [address] STATES OF [facility] CNOVon 09-25-2024 CNOV Office Visit (INTMWS ) DORA BRYANT ([id number]) 1945 F Date Time Provider Department 09/25/24 [...] treatment for retinal tear ALLERGIES Meloxicam, Nitrofurantoin, [place] [Hydrocodone-Acetaminophen], Penicillins, and Vioxx [Rofecoxib] MEDICATIONS cyclobenzaprine [...] Alcohol use: (more content not included)... Normal [facility] Comprehensive metabolic 2000 panelon 09-25-2024 Albumin [Mass/Vol] 4.1 g/dL Normal 3.9-4.9 [facility] Comment on above: Order Comment: Speci men Type: BLOOD SPECIMENOrdering Facility: [facility] Address: [address] [place] [address] Performed By: #### 2 4331-1, ####[facility] LABIA [id number] [place] [address] [place] ALP [Catalytic activity/Vol] 94 U/L Normal 34-123 [facility] Comment on above: Order Comment: Speci men Type: BLOOD SPECIMENOrdering Facility: [facility] Address: [address] [place] [address] Performed By: #### 2 4331-, ####[facility] LABIA [id number] [place] [address] [place] ALT [Catalytic activity/Vol] 16 U/L Normal 7-38 [facility] Comment on above: Order Comment: Speci men Type: BLOOD SPECIMENOrdering Facility: [facility] Address: [address] [place] [address] Performed By: #### 2 4331-1, ####[facility] LABIA [id number] [place] [address] [place] Anion gap [Moles/Vol] 15 mmol/L Normal 8-15 [facility] Comment on above: Order Comment: Speci men Type: BLOOD SPECIMENOrdering Facility: [facility] Address: [address] [place] [address] Performed By: #### 2 4331-1, ####[facility] LABIA [id number] [place] [id number] [place] AST [Catalytic activity/Vol] 21 U/L Normal 13-35 [facility] Comment on above: Order Comment: Speci men Type: BLOOD SPECIMENOrdering Facility: [facility] Address: [address] [place] [address] Performed By: #### 2 4331-1, ####[facility] LABCLIA [id number] [place] [address] [place] Bilirubin [Mass/Vol] 0.7 mg/dL Normal 0.2-1.3 [facility] Comment on above: Order Comment: Speci men Type: BLOOD SPECIMENOrdering Facility: [facility] Address: [address] [place] [address] Performed By: #### 2 4331-1, ####[facility] LABCLIA [id number] [place] [address] [place] Calcium [Mass/Vol] 9.4 mg/dL Normal 8.5-10.2 [facility] Comment on above: Order Comment: Speci men Type: BLOOD SPECIMENOrdering Facility: [facility] Address: [address] [place] [address] Performed By: #### 2 4331-1, ####[facility] LABCLIA [id number] [place] [address] [place] Chloride [Moles/Vol] 103 mmol/L Normal 98-107 [facility] Comment on above: Order Comment: Speci men Type: BLOOD SPECIMENOrdering Facility: [facility] Address: [address] [place] [address] Performed By: #### 2 4331-1, ####[facility] LABCLIA [id number] [place] [address] [place] CO2 [Moles/Vol] 23 mmol/L Normal 22-30 [facility] Comment on above: Order Comment: Speci men Type: BLOOD SPECIMENOrdering Facility: [facility] Address: [address] [place] [address] Performed By: #### 2 4331-1, 56801-7 ####[facility] [id number] [place] [address] [place] Creatinine [Mass/Vol] 1.00 mg/dL High 0.58-0.96 [facility] Comment on above: Order Comment: Denice men Type: BLOOD SPECIMENOrdering Facility: [facility] Address: [address] [place] [address] Performed By: #### 2 4331-1, 06535-5 ####[facility] [id number] [place] [address] [place] Creatinine and Glomerular filtration rate.predicted panel (S/P/Bld) 58 mL/min/1.73m??? Low >=60 [facility] Comment on above: Order Comment: Denice blackwell Type: BLOOD SPECIMENOrdering Facility: [facility] Address: [address] [place] [address] Result Comment: Batool mated Glomerular Filtration Rate [...] actual GFR. Performed By: #### 2 4331-1, 66778-9 ####[facility] LABIA [id number] [place] [address] [place] Glucose [Mass/Vol] 96 mg/dL Normal 74-99 [facility] Comment on above: Order Comment: Pieroi men Type: BLOOD SPECIMENOrdering Facility: [facility] Address: [address] [place] [address] Result Comment: The [place] Diabetes Association (ADA) provides guidance for cutoff [...] Standards of Medical Care in Diabetes 2016, [place] [employer]. Diabetes Care. 2016.39(Suppl 1). Performed By: #### 2 433-, ####[facility] LABCLIA [id number] [address] [address] [place] Potassium [Moles/Vol] 4.5 mmol/L Normal 3.7-5.1 [facility] Comment on above: Order Comment: Speci men Type: BLOOD SPECIMENOrdering Facility: [facility] Address: [address] [place] [address] Performed By: #### 2 43311-22, ####[facility] LABCLIA [id number] [address] [address] [place] Protein [Mass/Vol] 7.4 g/dL Normal 6.3-8.0 [facility] Comment on above: Order Comment: Pieroi men Type: BLOOD SPECIMENOrdering Facility: [facility] Address: [address] [place] [address] Performed By: #### 2 43311-22, ####[facility] LABCLIA [id number] [facility] [address] [address] [place] Sodium [Moles/Vol] 141 mmol/L Normal 136-144 [facility] Comment on above: Order Comment: Pieroi men Type: BLOOD SPECIMENOrdering Facility: [facility] Address: [address] [place] [id number] Performed By: #### 2 433-, ####[facility] LABCLIA [id number] [place] [address] [place] Urea nitrogen [Mass/Vol] 18 mg/dL Normal 7-21 [facility] Comment on above: Order Comment: Speci men Type: BLOOD SPECIMENOrdering Facility: [facility] Address: [address] [place] [address] Performed By: #### 2 4331-1, 66493-4 ####[facility] LABCLIA [id number] [place] [address] [place] Lipid 1996 panelon 4 Cholesterol [Mass/Vol] 178 mg/dL Normal <200 [facility] Comment on above: Order Comment: Speci men Type: BLOOD SPECIMENOrdering Facility: [facility] Address: [address] [place] [address] Result Comment: <200 mg/dL, Desirable 200-239 mg/dL, Borderline high >239 mg/dL, High Performed By: #### 2 4331-1, 75532-0 ####[facility] LABCLIA [id number] [place] [address] [place] Cholesterol in HDL [Mass/Vol] 52 mg/dL Normal >39 [facility] Comment on above: Order Comment: Speci men Type: BLOOD SPECIMENOrdering Facility: [facility] Address: [address] [place] [address] Result Comment: 40-5 9 mg/dL, Acceptable >59 mg/dL, High: Negative risk factor for coronary heart disease <40 mg/dL, Low: Positive risk factor for coronary heart disease Performed By: #### 2 4331-1, 18608-6 ####[facility] LABCLIA [id number] [address] [place] Cholesterol in LDL [Mass/Vol] 106 mg/dL High <100 [facility] Comment on above: Order Comment: Speci men Type: BLOOD SPECIMENOrdering Facility: [facility] Address: [address] [place] [address] Result Comment: <100 mg/dL, Optimal 100-129 mg/dL, Near optimal/above optimal 130-159 mg/dL, Borderline high 160-189 mg/dL, High >189 mg/dL, Very high Secondary prevention optimal LDL Cholesterol levels are recommended to be < 70 mg/dL Performed By: #### 2 4331-1, ####[facility] LABCLIA [id number] [address] [address] [place] Cholesterol in LDL/Cholesterol in HDL [Mass ratio] 2.04 {ratio} Normal <2.54 [facility] Comment on above: Order Comment: Denice men Type: BLOOD SPECIMENOrdering Facility: [facility] Address: [address] [place] [address] Result Comment: Refe stuartce: 1. National Cholesterol Education Program ATP III Guideline At-A-Glance Quick Desk Reference: National Heart, Lung, and Blood [place]. National Institutes of Health. 2001: NIH Publication No. 01-3305. 2. An International Atherosclerosis Society position paper: global recommendations for the management of dyslipidemia: executive summary, Atherosclerosis. 2014: 232(2):410-413. Performed By: #### 2 4331-, ####[facility] LABCLIA [id number] [place] [address] [place] Cholesterol in VLDL [Mass/Vol] 20 mg/dL Normal <30 [facility] Comment on above: Order Comment: Denice blackwell Type: BLOOD SPECIMENOrdering Facility: [facility] Address: [address] [place] [address] Performed By: #### 2 4331-, ####[facility] LABCLIA [id number] [address] [address] [place] Cholesterol non HDL [Mass/Vol] 126 mg/dL Normal <130 [facility] Comment on above: Order Comment: Denice blackwell Type: BLOOD SPECIMENOrdering Facility: [facility] Address: [address] [place] [address] Result Comment: <130 mg/dL, Optimal 130-159 mg/dL, Near optimal/above optimal 160-189 mg/dL, Borderline high 190-219 mg/dL, High >219 mg/dL, Very high Secondary prevention optimal non HDL Cholesterol levels are recommended to be <100 mg/dL Performed By: #### 2 4331-1, ####[facility] LABCLIA [id number] [place] [address] [place] Cholesterol.total/C holesterol in HDL [Mass ratio] 3.42 {ratio} Normal <5.10 [facility] Comment on above: Order Comment: Speci men Type: BLOOD SPECIMENOrdering Facility: [facility] Address: [address] [place] [address] Performed By: #### 2 4331-1, ####[facility] LABCLIA [id number] [place] [address] [place] FASTING TIME 12 hrs Normal [facility] Comment on above: Order Comment: Speci men Type: BLOOD SPECIMENOrdering Facility: [facility] Address: [address] [place] [address] Performed By: #### 2 4331-1, ####[facility] LABCLIA [id number] [place] [address] [place] Triglyceride [Mass/Vol] 102 mg/dL Normal <150 [facility] Comment on above: Order Comment: Speci men Type: BLOOD SPECIMENOrdering Facility: [facility] Address: [address] [place] [address] Result Comment: <150 mg/dL, Normal 150-199 mg/dL, Borderline high 200-499 mg/dL, High >499 mg/dL, Very high Performed By: #### 2 4331-1, ####[facility] LABCLIA [id number] [place] [address] [place] UA DIP, URINE (POC)on 2023 BILIRUBIN UA (POCT) Negative Negative [facility] CLARITY UA (POCT) Clear [facility] COLOR UA (POCT) Yellow [facility] GLUCOSE UA (POCT) Negative Negative mg/dL [facility] Hemoglobin Ql (U) Small Abnormal Negative [facility] Interpretation and review of laboratory results Abnormal [facility] KETONE UA (POCT) Negative Negative mg/dL [facility] LEUKOCYTES UA (POCT) Trace Abnormal Negative [facility] NITRITE UA (POCT) Negative Negative [facility] PH UA (POCT) 6.0 4.5 - 8.0 [facility] Protein Ql (U) Negative Negative mg/dL [facility] SPECIFIC GRAVITY UA (POCT) 1.015 1.005 - 1.030 [facility] UROBILINOGEN UA (POCT) 0.2 Normal E.U./dL [facility] Location:[address], [place], [place], [address] [place] [address] POINT OF CARE [facility] Urinalysis complete panel (U )on 09-25-2024 Bacteria LM.HPF (Urine sed) [#/Area] Negative Normal Negative [facility] Comment on above: Order Comment: Speci men Type: URINE SPECIMENOrdering Facility: [facility] Address: [address] [place] [address] Performed By: #### 2 4356-8 ####[facility] LABIA [id number] [place] [address] [place] Bilirubin Ql (U) Negative Normal Negative [facility] Comment on above: Order Comment: Speci men Type: URINE SPECIMENOrdering Facility: [facility] Address: [address] [place] [address] Performed By: #### 2 4356-8 ####[facility] LABIA [id number] [place] [address] [place] Clarity (Unsp spec) Clear Normal Clear [facility] Comment on above: Order Comment: Speci men Type: URINE SPECIMENOrdering Facility: [facility] Address: [address] [place] [address] Performed By: #### 2 4356-8 ####[facility] LABCLIA [id number] [place] [address] [place] Color (U) Yellow Normal Yellow [facility] Comment on above: Order Comment: Speci men Type: URINE SPECIMENOrdering Facility: [facility] Address: [address] [place] [address] Performed By: #### 2 4356-8 ####[facility] LABCLIA [id number] [place] [address] [place] Epithelial cells LM.HPF (Urine sed) [#/Area] Few Normal [facility] Comment on above: Order Comment: Speci men Type: URINE SPECIMENOrdering Facility: [facility] Address: [address] [place] [address] Performed By: #### 2 4356-8 ####[facility] LABCLIA [id number] [place] [address] [place] Glucose Test strip (U) [Mass/Vol] Negative Normal Negative [facility] Comment on above: Order Comment: Speci men Type: URINE SPECIMENOrdering Facility: [facility] Address: [address] [place] [address] Performed By: #### 2 4356-8 ####[facility] LABCLIA [id number] [place] [address] [place] Hemoglobin Ql (U) Negative Normal Negative [facility] Comment on above: Order Comment: Speci men Type: URINE SPECIMENOrdering Facility: [facility] Address: [address] [place] [address] Performed By: #### 2 4356-8 ####[facility] LABCLIA [id number] [place] [address] [place] Hyaline casts (Urine sed) [#/Area] 0 /[LPF] Normal 0 /LPF [facility] Comment on above: Order Comment: Speci men Type: URINE SPECIMENOrdering Facility: [facility] Address: [address] [place] [address] Performed By: #### 2 4356-8 ####[facility] LABCLIA [id number] [place] [address] [place] Ketones Ql (U) Negative Normal Negative [facility] Comment on above: Order Comment: Speci men Type: URINE SPECIMENOrdering Facility: [facility] Address: [address] [place] [address] Performed By: #### 2 4356-8 ####[facility] LABCLIA [id number] [place] [address] [place] Leukocyte esterase Test strip Ql (U) 1+ Abnormal Negative [facility] Comment on above: Order Comment: Speci men Type: URINE SPECIMENOrdering Facility: [facility] Address: [address] [place] [address] Performed By: #### 2 4356-8 ####[facility] LABCLIA [id number] [place] [address] [place] Nitrite Ql (U) Negative Normal Negative [facility] Comment on above: Order Comment: Speci men Type: URINE SPECIMENOrdering Facility: [facility] Address: [address] [place] [address] Performed By: #### 2 4356-8 ####[facility] LABCLIA [id number] [place] [address] [place] pH (U) 6.0 [pH] Normal <8.5 [facility] Comment on above: Order Comment: Speci men Type: URINE SPECIMENOrdering Facility: [facility] Address: [address] [place] [address] Performed By: #### 2 4356-8 ####[facility] LABCLIA [id number] [place] [address] [place] Protein (U) [Mass/Vol] Negative Normal Negative [facility] Comment on above: Order Comment: Speci men Type: URINE SPECIMENOrdering Facility: [facility] Address: [address] [place] [address] Performed By: #### 2 4356-8 ####[facility] LABCLIA [id number] [place] [address] [place] RBC LM.HPF (Urine sed) [#/Area] 3-5 /HPF Abnormal 0-2 /HPF [facility] Comment on above: Order Comment: Speci men Type: URINE SPECIMENOrdering Facility: [facility] Address: [address] [place] [address] Performed By: #### 2 4356-8 ####[facility] LABIA [id number] [place] [address] [place] Specific gravity (U) [Rel density] 1.019 Normal 1.005-1.030 [facility] Comment on above: Order Comment: Speci men Type: URINE SPECIMENOrdering Facility: [facility] Address: [address] [place] [address] Performed By: #### 2 4356-8 ####[facility] LABIA [id number] [place] [address] [place] Urobilinogen Ql (U) 0.2 EU/dL Normal 0.2-1.0 EU/dL [facility] Comment on above: Order Comment: Speci men Type: URINE SPECIMENOrdering Facility: [facility] Address: [address] [place] [address] Performed By: #### 2 4356-8 ####[facility] LABIA [id number] [place] [address] [place] WBC LM.HPF (Urine sed) [#/Area] 0-5 /HPF Normal 0-5 /HPF [facility] Comment on above: Order Comment: Speci men Type: URINE SPECIMENOrdering Facility: [facility] Address: [address] [place] [address] Performed By: #### 2 4356-8 ####[facility] LABCLIA [id number] [address] [address] [place] CNOVon 09-22-2024 CNOV Office Visit (FAMPWS ) DORA BRYANT ([id number]) 1945 F Date Time Provider Department 09/22/24 [...] Nitrofurantoin Other: See Comments Possible allergic reaction [place] [Hydrocodone-* Other: See Comments Possible allergic reaction [...] for nausea/vom (more content not included)... [facility] DORA BRYANT ([id number]) 1945 F Date Time Provider Department 08/03/24 [facility] During your visit today, we recorded the following information about you: Sally Singh APRN.MEETING MANAGER 08/03/2024 12:37 PM Signed Please let patient [...] [K21.9] 04/26/2007 Routine general medical examination at [facility]*04/22/2009 04/15/2016 Benign Neoplasm of Colon [D12.6] 04/22/2009 [...] Status:Closed by CARLY CERVANTES on 08/03/24 Normal [facility] US DVT LOWER RTon 08-03-2024 US DVT [...] imaged segments of the right lower extremity. Forensic Manager: JODY Transcribe Date/Time: Aug 03 2024 11:37A Dictated by : RUBÉN TORRES DO This examination was interpreted and the report reviewed and electronically signed by: RUBÉN TORRES DO on Aug 03 2024 11:37AM EST [id number] Normal [facility] IMPRESSION: Negative study for proximal DVT in the right lower extremity. Negative study for calf DVT in the right lower extremity. Negative study for superficial thrombophlebitis in the imaged segments of the right lower extremity. Forensic Manager: JODY Transcribe Date/Time: Aug 03 2024 11:37A Dictated by : RUBÉN TORRES DO This examination was interpreted and the report reviewed and electronically signed by: RUBÉN TORRES DO on Aug 03 2024 11:37AM EST DIVISION OF RADIOLOGY * * *Final Report* * * DATE OF EXAM: Aug 03 2024 11:20AM [place] [id number] - DVT LOWER RT / PROCEDURE REASON: [...] imaged segments of the right lower extremity. Forensic Manager: JODY Transcribe Date/Time: Aug 03 2024 11:37A Dictated by : RUBÉN TORRES DO This examination was interpreted and the report reviewed and electronically signed by: RUBÉN TORRES DO on Aug 03 2024 11:37AM EST [facility] Radiology Study observation (narrative) [facility] US Lower extremity vein - ri ghtOrdered By: [facility] Provider on 08-03-2024 [facility] CNOVon 07-31-2024 CNOV Office Visit (FOREIGNWS ) DORA BRYANT ([id number]) 1945 F Date Time Provider Department 07/31/24 [...] infection, site not specified ALLERGIES Meloxicam, Nitrofurantoin, [place] [Hydrocodone-Acetaminophen], Penicillins, and Vioxx [Rofecoxib] MEDICATIONS Current [...] on 03/22/2025 (more content not included)... Normal [facility] CNTHERAPYon 06-23-2024 CNTHERAPY OT/PT/Speech Visit ( PTWS) ODRA BRYANT ([id number]) 1945 F Date Time Provider Department 06/23/24 10:00 AM CATHERINE VALLES PTWS Date Time Provider Department Center 06/23/2024 10:00 AM [id number] VALLES PTWS [place] Reason for Visit: Physical Therapy [503] Primary Visit Diagnosis:Fall in home, initial encounter [W19.XXXA, Y92.009] Other Visit Diagnosis:Closed fracture of ramus of right pubis with routine healing, subsequent encounter [S39.130H] Allergies As of Date: 06/23/2024 Noted Allergy [...] Take 600 mg by mouth once daily. Assistant Golf Professional: Addendum Therapy (PT/OT/Speech/Resp) ID: [id number] 06/23/2024 10:15 AM Author: CATHERINE VALLES Signed by CATHERINE VALLES PT on 06/23/2024 at 10:15 AM * * * This document replaces document [id number] * * * Document text: Program_ID:[id number] Access Code: [email or web address] URL: [email or web address] Date: 06-23-2024 Prepared By: Jg Velasco Program [...] - 4-5 sets - 1 reps Normal [facility] THERAPY NTon 06-23-2024 THERAPY NT HNO ID: [id number] Author: CATHERINE VALLES PT Service: ? Author Type: Physical Therapist Type: Therapy (PT/OT/Speech/Resp) Filed: 06/23/2024 10:15 Note Text: Program_ID:[id number] Access Code: [email or web address] URL: [email or web address] Date: 06-23-2024 Prepared By: Jg Velasco Program [...] - 4-5 sets - 1 reps Normal [facility] CNOVon 06-22-2024 CNOV Office Visit (FAMPWS ) DORA BRYANT ([id number]) 1945 F Date Time Provider Department 06/22/24 [...] of pituitary gland and craniopharyngeal duct (pouch) ([facility]) No date: Carpal tunnel syndrome No date: CKD (chronic kidney disease), stage III ([facility]) No date: Closed rib fracture Comment: 5,6,7,8,9,10 [...] Myalgia and myositis, unspecified 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 Normal [facility] Comprehensive metabolic 2000 panelon 06-22-2024 Albumin [Mass/Vol] 4.3 g/dL Normal 3.9-4.9 [facility] Comment on above: Order Comment: Speci men Type: BLOOD SPECIMENOrdering Facility: [facility] Address: [address] [place] [address] Performed By: #### 2 4323-8 ####[facility] LABIA [id number] [place] [address] [place] ALP [Catalytic activity/Vol] 94 U/L Normal 34-123 [facility] Comment on above: Order Comment: Speci men Type: BLOOD SPECIMENOrdering Facility: [facility] Address: [address] [place] [address] Performed By: #### 2 4323-8 ####[facility] LABIA [id number] [place] [address] [place] ALT [Catalytic activity/Vol] 22 U/L Normal 7-38 [facility] Comment on above: Order Comment: Speci men Type: BLOOD SPECIMENOrdering Facility: [facility] Address: [address] [place] [address] Performed By: #### 2 4323-8 ####[facility] LABCLIA [id number] [place] [address] [place] Anion gap [Moles/Vol] 9 mmol/L Normal 8-15 [facility] Comment on above: Order Comment: Speci men Type: BLOOD SPECIMENOrdering Facility: [facility] Address: [address] [place] [address] Performed By: #### 2 4323-8 ####[facility] LABCLIA [id number] [place] [address] [place] AST [Catalytic activity/Vol] 26 U/L Normal 13-35 [facility] Comment on above: Order Comment: Speci men Type: BLOOD SPECIMENOrdering Facility: [facility] Address: [address] [place] [address] Performed By: #### 2 4323-8 ####[facility] LABCLIA [id number] [place] [address] [place] Bilirubin [Mass/Vol] 0.4 mg/dL Normal 0.2-1.3 [facility] Comment on above: Order Comment: Speci men Type: BLOOD SPECIMENOrdering Facility: [facility] Address: [address] [place] [address] Performed By: #### 2 4323-8 ####[facility] LABCLIA [id number] [place] [address] [place] Calcium [Mass/Vol] 9.6 mg/dL Normal 8.5-10.2 [facility] Comment on above: Order Comment: Speci men Type: BLOOD SPECIMENOrdering Facility: [facility] Address: [address] [place] [address] Performed By: #### 2 4323-8 ####[facility] LABCLIA [id number] [place] [address] [place] Chloride [Moles/Vol] 106 mmol/L Normal 98-107 [facility] Comment on above: Order Comment: Speci men Type: BLOOD SPECIMENOrdering Facility: [facility] Address: [address] [place] [address] Performed By: #### 2 4323-8 ####[facility] LABCLIA [id number] [place] [address] [place] CO2 [Moles/Vol] 26 mmol/L Normal 22-30 [facility] Comment on above: Order Comment: Speci men Type: BLOOD SPECIMENOrdering Facility: [facility] Address: [address] [place] [address] Performed By: #### 2 4323-8 ####[facility] LABIA [id number] [place] [address] [place] Creatinine [Mass/Vol] 1.04 mg/dL High 0.58-0.96 [facility] Comment on above: Order Comment: Speci men Type: BLOOD SPECIMENOrdering Facility: [facility] Address: [address] [place] [address] Performed By: #### 2 4323-8 ####[facility] LABIA [id number] [place] [address] [place] [facility] Creatinine and Glomerular filtration rate.predicted panel (S/P/Bld) 55 mL/min/1.73m??? Low >=60 [facility] Comment on above: Order Comment: Denice blackwell Type: BLOOD SPECIMENOrdering Facility: [facility] Address: [address] [place] [address] Result Comment: Batool mated Glomerular Filtration Rate [...] actual GFR. Performed By: #### 2 4323-8 ####[facility] LABIA [id number] [place] [address] [place] Glucose [Mass/Vol] 63 mg/dL Low 74-99 [facility] Comment on above: Order Comment: Speci men Type: BLOOD SPECIMENOrdering Facility: [facility] Address: [address] [place] [address] Result Comment: The [place] Diabetes [employer] (ADA) provides guidance for cutoff [...] Standards of Medical Care in Diabetes 2016, [place] [employer]. Diabetes Care. 2016.39(Suppl 1). Performed By: #### 2 4323-8 ####[facility] LABCLIA [id number] [place] [address] [place] Potassium [Moles/Vol] 4.0 mmol/L Normal 3.7-5.1 [facility] Comment on above: Order Comment: Speci men Type: BLOOD SPECIMENOrdering Facility: [facility] Address: [address] [place] [address] Performed By: #### 2 4323-8 ####[facility] LABCLIA [id number] [place] [address] [place] Protein [Mass/Vol] 6.5 g/dL Normal 6.3-8.0 [facility] Comment on above: Order Comment: Speci men Type: BLOOD SPECIMENOrdering Facility: [facility] Address: [address] [place] [address] Performed By: #### 2 4323-8 ####[facility] LABCLIA [id number] [place] [address] [place] Sodium [Moles/Vol] 141 mmol/L Normal 136-144 [facility] Comment on above: Order Comment: Speci men Type: BLOOD SPECIMENOrdering Facility: [facility] Address: [address] [place] [address] Performed By: #### 2 4323-8 ####[facility] LABCLIA [id number] [place] [address] [place] Urea nitrogen [Mass/Vol] 20 mg/dL Normal 7-21 [facility] Comment on above: Order Comment: Speci men Type: BLOOD SPECIMENOrdering Facility: [facility] Address: [address] [place] [address] Performed By: #### 2 4323-8 ####[facility] LABCLIA [id number] [place] [address] [place] Urinalysis complete panel (U )on 06-22-2024 Bacteria LM.HPF (Urine sed) [#/Area] Negative Normal Negative [facility] Comment on above: Order Comment: Speci men Type: URINE SPECIMENOrdering Facility: [facility] Address: [address] [place] [address] Performed By: #### 2 4356-8 ####[facility] LABCLIA [id number] [place] [address] [place] Bilirubin Ql (U) Negative Normal Negative [facility] Comment on above: Order Comment: Speci men Type: URINE SPECIMENOrdering Facility: [facility] Address: [address] [place] [address] Performed By: #### 2 4356-8 ####[facility] LABCLIA [id number] [place] [address] [place] Clarity (Unsp spec) Clear Normal Clear [facility] Comment on above: Order Comment: Speci men Type: URINE SPECIMENOrdering Facility: [facility] Address: [address] [place] [address] Performed By: #### 2 4356-8 ####[facility] LABCLIA [id number] [place] [address] [place] Color (U) Dark Yellow Abnormal Yellow [facility] Comment on above: Order Comment: Speci men Type: URINE SPECIMENOrdering Facility: [facility] Address: [address] [place] [address] Performed By: #### 2 4356-8 ####[facility] LABCLIA [id number] [place] Epithelial cells LM.HPF (Urine sed) [#/Area] None Seen Normal [facility] Comment on above: Order Comment: Speci men Type: URINE SPECIMENOrdering Facility: [facility] Address: [address] [place] [address] Performed By: #### 2 4356-8 ####[facility] LABCLIA [id number] [place] [address] [place] Glucose Test strip (U) [Mass/Vol] Negative Normal Negative [facility] Comment on above: Order Comment: Speci men Type: URINE SPECIMENOrdering Facility: [facility] Address: [address] [place] [address] Performed By: #### 2 4356-8 ####[facility] LABCLIA [id number] [place] [address] [place] Hemoglobin Ql (U) Negative Normal Negative [facility] Comment on above: Order Comment: Speci men Type: URINE SPECIMENOrdering Facility: [facility] Address: [address] [place] [address] Performed By: #### 2 4356-8 ####[facility] LABCLIA [id number] [place] [address] [place] Hyaline casts (Urine sed) [#/Area] 0 /[LPF] Normal 0 /LPF [facility] Comment on above: Order Comment: Speci men Type: URINE SPECIMENOrdering Facility: [facility] Address: [address] [place] [address] Performed By: #### 2 4356-8 ####[facility] LABCLIA [id number] [address] [place] Ketones Ql (U) Negative Normal Negative [facility] Comment on above: Order Comment: Speci men Type: URINE SPECIMENOrdering Facility: [facility] Address: [address] [place] [address] Performed By: #### 2 4356-8 ####[facility] LABCLIA [id number] [place] [address] [place] Leukocyte esterase Test strip Ql (U) Negative Normal Negative [facility] Comment on above: Order Comment: Speci men Type: URINE SPECIMENOrdering Facility: [facility] Address: [address] [place] [address] Performed By: #### 2 4356-8 ####[facility] LABCLIA [id number] [place] [address] [place] Nitrite Ql (U) Negative Normal Negative [facility] Comment on above: Order Comment: Speci men Type: URINE SPECIMENOrdering Facility: [facility] Address: [address] [place] [address] Performed By: #### 2 4356-8 ####[facility] LABCLIA [id number] [place] [address] [place] pH (U) 5.5 [pH] Normal <8.5 [facility] Comment on above: Order Comment: Speci men Type: URINE SPECIMENOrdering Facility: [facility] Address: [address] [place] [address] Performed By: #### 2 4356-8 ####[facility] LABCLIA [id number] [place] [address] [place] Protein (U) [Mass/Vol] Negative Normal Negative [facility] Comment on above: Order Comment: Speci men Type: URINE SPECIMENOrdering Facility: [facility] Address: [address] [place] [address] Performed By: #### 2 4356-8 ####[facility] LABCLIA [id number] [place] [address] [place] RBC LM.HPF (Urine sed) [#/Area] 0-2 /HPF Normal 0-2 /HPF [facility] Comment on above: Order Comment: Speci men Type: URINE SPECIMENOrdering Facility: [facility] Address: [address] [place] [address] Performed By: #### 2 4356-8 ####[facility] [id number] [place] [address] [place] Specific gravity (U) [Rel density] 1.022 Normal 1.005-1.030 [facility] Comment on above: Order Comment: Speci men Type: URINE SPECIMENOrdering Facility: [facility] Address: [address] [place] [address] Performed By: #### 2 4356-8 ####[facility] [id number] [place] [address] [place] Urobilinogen Ql (U) 0.2 EU/dL Normal 0.2-1.0 EU/dL [facility] Comment on above: Order Comment: Speci men Type: URINE SPECIMENOrdering Facility: [facility] Address: [address] [place] [address] Performed By: #### 2 4356-8 ####[facility] [id number] [place] [address] [place] WBC LM.HPF (Urine sed) [#/Area] 0-5 /HPF Normal 0-5 /HPF [facility] Comment on above: Order Comment: Speci men Type: URINE SPECIMENOrdering Facility: [facility] Address: [address] [place] [address] Performed By: #### 2 4356-8 ####[facility] [id number] [place] CNTHERAPYon 06-13-2024 CNTHERAPY OT/PT/Speech Visit ( PTWS) DORA BRYANT ([id number]) 1945 F Date Time Provider Department 06/13/24 10:15 AM BARBARA AHUMADA Date Time Provider Department Center 06/13/2024 10:15 AM [id number], MARIAH PTWS [place] Reason for Visit: Physical Therapy [503] Primary Visit Diagnosis:Fall in home, initial encounter [W19.XXXA, Y92.009] Other Visit Diagnosis:Closed fracture of ramus of right pubis with routine healing, subsequent encounter [S32.420H] Allergies As of Date: 06/13/2024 Noted Allergy [...] Take 600 mg by mouth once daily. Assistant Golf Professional: Therapy (PT/OT/Speech/Resp) ID: [id number] 06/13/2024 10:44 AM Author: BARBARA AHUMADA Signed by BARBARA AHUMADA DIGITAL PROGRAM MANAGER on 06/13/2024 at 10:44 AM Document text: Program_ID:[id number] Access Code: [email or web address] URL: [email or web address] Date: 06-13-2024 Prepared By: Jg Velasco Program [...] - 2 sets - 10 reps Normal [facility] THERAPY NTon 06-13-2024 THERAPY NT HNO ID: [id number] Author: BARBARA AHUMADA PTA Service: ? Author Type: Revenue Stamp Clerk Type: Therapy (PT/OT/Speech/Resp) Filed: 06/13/2024 10:44 Note Text: Program_ID:[id number] Access Code: [email or web address] URL: [email or web address] Date: 06-13-2024 Prepared By: Jg Velasco Program [...] - 2 sets - 10 reps Normal [facility] CNPNon 06-02-2024 CNPN Telephone (PTWS) DORA BRYANT ([id number]) 1945 F Date Time Provider Department 06/02/24 JG HOWARD During your visit today, we recorded the following information about you: Mckenzie Lewis RN 06/02/2024 2:56 PM Signed Patient calling and is asking for direction on how to proceed. Patient states she received an update that her insurance company has approved 8 sessions of therapy at [facility] and she would like to continue therapy at [facility]. Patient asking if therapy department could [...] Fully Assessed Reason for Visit: Patient Question [0127] Prescriptions as of 06/15/2024 - omeprazole (PRILOSEC) [...] [K21.9] 04/26/2007 Routine general medical examination at [facility]*04/22/2009 04/15/2016 Benign Neoplasm of Colon [D12.6] 04/22/2009 [...] Status:Closed by MCKENZIE LEWIS on 06/15/24 Normal [facility] [id number] 06-01-2024 [id number] HNO ID: [id number] Author: JG HOWARD PT, DPT Service: ? Author Type: Physical Therapist Type: [id number] Filed: 06/01/2024 11:16 Note Text: [facility] Physical Therapy Plan of Care Certification Patient Name: Dora Bryant : 1945 [facility] #: [id number] Date: 06/01/2024 To: Elan Garcia,* From Therapist: [...] of Care: created on 06/01/24 through 07/27/24 [place] in home exercise program. Patient will decrease [...] Planned: 8 Planned Treatment Interventions: Therapeutic exercise (14704), Neuromuscular re-education (77920), Manual therapy (33796), Therapeutic activities (87282), Self-usp management (43294), Gait Training (57943), Body Mechanics Training PLAN FOR NEXT VISIT: [...] reviewed the treatment plan for Dora Bryant, [facility]# [id number] for the period of 06/01/24 -- 07/27/24, established on 06/01/2024. Signature certifies the need for therapy services. Normal [facility] CNTHERAPYon 06-01-2024 CNTHERAPY OT/PT/Speech Visit ( PTWS) DORA BRYANT ([id number]) 1945 F Date Time Provider Department 06/01/24 9:45 AM JG HOWARD PTWS Date Time Provider Department [place] 06/01/2024 9:45 AM [id number], MCKENA PTWS [place] Reason for Visit: PT Eval [747] [...] Take 600 mg by mouth once daily. Assistant Golf Professional: Therapy (PT/OT/Speech/Resp) ID: [id number] 06/01/2024 10:32 AM Author: JG HOWARD Signed by JG HOWARD PT, DPT on 06/01/2024 at 10:32 AM Document text: Program_ID:[id number] Access Code: [email or web address] URL: [email or web address] Date: 06-01-2024 Prepared By: Jg Velasco Program [...] - 2 sets - 2 reps Normal [facility] THERAPY NTon 06-01-2024 THERAPY NT HNO ID: [id number] Author: JG HOWARD, PT, DPT Service: ? Author Type: Physical Therapist Type: Therapy (PT/OT/Speech/Resp) Filed: 06/01/2024 10:32 Note Text: Program_ID:[id number] Access Code: [email or web address] URL: [email or web address] Date: 06-01-2024 Prepared By: Jg Velasco Program [...] - 2 sets - 2 reps Normal [facility] XR Pelvis and Hip - right AP and Lateral frogon 05-30-2024 IMPRESSION: MILD DEGENERATIVE CHANGE Forensic Manager: JODY Transcribe Date/Time: May 30 2024 1:16P Dictated by : WINIFRED SAMAYOA MD This examination was interpreted and the report reviewed and electronically signed by: WINIFRED SAMAYOA MD on May 30 2024 1:17PM [facility] DIVISION OF RADIOLOGY * * *Final Report* [...] right. Osteitis pubis. DIVISION OF RADIOLOGY Provider, [facility] - 05/30/2024 * * *Final Report* * [...] Osteitis pubis. IMPRESSION IMPRESSION: MILD DEGENERATIVE CHANGE Forensic Manager: [facility] Transcribe Date/Time: May 30 2024 1:16P Dictated by : WINIFRED SAMAYOA MD This examination was interpreted and the report reviewed and electronically signed by: WINIFRED SAMAYOA MD on May 30 2024 1:17PM EST [facility] XR Pelvis and Hip - right AP and Lateral frogOrdered By: [facility] Provider on 05-30-2024 [facility] XR HIP 3V PELV+ AP/LAT RTon 05-24-2024 [...] right. Osteitis pubis. IMPRESSION: MILD DEGENERATIVE CHANGE Forensic Manager: [facility] Transcribe Date/Time: May 30 2024 1:16P Dictated by : WINIFRED SAMAYOA MD This examination was interpreted and the report reviewed and electronically signed by: WINIFRED SAMAYOA MD on May 30 2024 1:17PM EST [id number] Normal [facility] XR Pelvis and Hip - right AP and Lateral frogon 05-24-2024 Radiology Study observation (narrative) [facility] CNOVon 05-13-2024 CNOV Office Visit (FAMPWS ) DORA BRYANT ([id number]) 1945 F Date Time Provider Department 05/13/24 [...] today for Above Complaints. Patient evaluated at [facility] ED on 05/11 after she had fall [...] of pituitary gland and craniopharyngeal duct (pouch) ([facility]) Carpal tunnel syndrome CKD (chronic kidney disease), stage III ([facility]) Closed rib fracture 5,6,7,8,9,10 from [...] workup negative. 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 Sung-endocrinology Pituitary adenoma ([facility]) repeat MRI in 2024 Retinal [...] Nitrofurantoin Other: See Comments Possible allergic reaction [place] [Hydrocodone-* Other: See Comments Possible allergic reaction [...] as neede (more content not included)... Normal [facility] CNOVon 03-22-2024 CNOV Office Visit (FAMPWS ) DORA BRYANT ([id number]) 1945 F Date Time Provider Department 03/22/24 10:00 AM [facility] During your visit today, we recorded the following information about you: Pulse Respiration Blood pressure Weight 76/minute 18/minute 126/74 59.7 kg Edna Loco APRN.MEETING MANAGER 03/22/2024 10:48 AM Signed 03/21/2024 Patient presents [...] products Panhypopituitarism/HYPOTHYROI DISM: Follows with 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. Last office visit in October- next scheduled appointment in is April. Taking medications as prescribed. No medication changes at that time GERD: taking omeprazole as prescribed without side effects Does not want to take cholesterol medications. PAST MEDICAL HISTORY Diagnosis Date Acute gastritis without mention of hemorrhage Benign neoplasm of pituitary gland and craniopharyngeal duct (pouch) ([facility]) Carpal tunnel syndrome CKD (chronic kidney disease), stage III ([facility]) Closed rib fracture 5,6,7,8,9,10 from [...] workup negative. 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 Sung-endocrinology Pituitary adenoma ([facility]) repeat MRI in 2024 Retinal tear, right s/p laser Sprain of neck Urinary tract infection, site not specified ALLERGIES Meloxicam, Nitrofurantoin, [place] [Hydrocodone-Acetaminophen], Penicillins, and Vioxx [Rofecoxib] MEDICATIONS Current [...] g/dL 1 (more content not included)... Normal [facility] CNOVon 02-28-2024 CNOV Office Visit (FAMPWS ) DORA BRYANT ([id number]) 1945 F Date Time Provider Department 02/28/24 [...] of pituitary gland and craniopharyngeal duct (pouch) ([facility]) Carpal tunnel syndrome CKD (chronic kidney disease), stage III ([facility]) Closed rib fracture 5,6,7,8,9,10 from [...] workup negative. 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 Sung-endocrinology Pituitary adenoma ([facility]) repeat MRI in 2024 Retinal tear, right s/p laser Sprain of neck Urinary tract infection, site not specified ALLERGIES Meloxicam, Nitrofurantoin, [place] [Hydrocodone-Acetaminophen], Penicillins, and Vioxx [Rofecoxib] MEDICATIONS Current [...] due on (more content not included)... 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 Sung-endocrinology - Pituitary adenoma ([facility]) repeat MRI in 2024 - Retinal tear, right s/p laser - Sprain of neck - Urinary tract infection, site not specified ALLERGIES Meloxicam, Nitrofurantoin, [place] [Hydrocodone-Acetaminophen], Penicillins, and Vioxx [Rofecoxib] MEDICATIONS Current [...] Anus normal (more content not included)... Normal [facility] 01-31-2024 [facility] Telephone (FAMWS) DORA BRYANT ([id number]) 1945 F Date Time Provider Department 01/31/24 ELAN GARCIA [facility] During your visit today, we recorded the [...] [K21.9] 04/26/2007 Routine general medical examination at [facility]*04/22/2009 04/15/2016 Benign Neoplasm of Colon [D12.6] 04/22/2009 [...] of rig*10/03 (more content not included)... Normal [facility] CBC W Auto Differential pane l (Bld)on 01-29-2024 Basophils (Bld) [#/Vol] 0.10 10*3/uL Normal <0.11 [facility] Comment on above: Order Comment: Speci men Type: BLOOD SPECIMENOrdering Facility: [facility] Address: [address] [place] [address] Performed By: #### 5 7021-8 ####[facility] LABIA [id number] [place] [address] [place] Basophils/100 WBC (Bld) 0.9 % Normal [facility] Comment on above: Order Comment: Speci men Type: BLOOD SPECIMENOrdering Facility: [facility] Address: [address] [place] [address] Performed By: #### 5 7021-8 ####[facility] LABIA [id number] [place] [address] [place] Differential cell count method Nom (Bld) Auto Normal [facility] Comment on above: Order Comment: Speci men Type: BLOOD SPECIMENOrdering Facility: [facility] Address: [address] [place] [address] Performed By: #### 5 7021-8 ####[facility] LABCLIA [id number] [place] [address] [place] Eosinophils (Bld) [#/Vol] 0.45 10*3/uL Normal <0.46 [facility] Comment on above: Order Comment: Speci men Type: BLOOD SPECIMENOrdering Facility: [facility] Address: [address] [place] [address] Performed By: #### 5 7021-8 ####[facility] LABCLIA [id number] [place] [address] [place] Eosinophils/100 WBC (Bld) 3.9 % Normal [facility] Comment on above: Order Comment: Speci men Type: BLOOD SPECIMENOrdering Facility: [facility] Address: [address] [place] [address] Performed By: #### 5 7021-8 ####[facility] LABCLIA [id number] [place] [address] [place] Erythrocyte distribution width (RBC) [Ratio] 14.7 % Normal 11.5-15.0 [facility] Comment on above: Order Comment: Speci men Type: BLOOD SPECIMENOrdering Facility: [facility] Address: [address] [place] [address] Performed By: #### 5 7021-8 ####[facility] LABCLIA [id number] [place] [address] [place] Hematocrit (Bld) [Volume fraction] 45.3 % Normal 36.0-46.0 [facility] Comment on above: Order Comment: Speci men Type: BLOOD SPECIMENOrdering Facility: [facility] Address: [address] [place] [address] Performed By: #### 5 7021-8 ####[facility] LABCLIA [id number] [id number], [place] [address] [place] Hemoglobin (Bld) [Mass/Vol] 14.9 g/dL Normal 11.5-15.5 [facility] Comment on above: Order Comment: Speci men Type: BLOOD SPECIMENOrdering Facility: [facility] Address: [address] [place] [address] Performed By: #### 5 7021-8 ####[facility] LABCLIA [id number] [place] [address] [place] Immature granulocytes (Bld) [#/Vol] 0.07 10*3/uL Normal <0.10 [facility] Comment on above: Order Comment: Speci men Type: BLOOD SPECIMENOrdering Facility: [facility] Address: [address] [place] [address] Performed By: #### 5 7021-8 ####[facility] LABCLIA [id number] [place] [address] [place] Immature granulocytes/100 WBC (Bld) 0.6 % Normal [facility] Comment on above: Order Comment: Speci men Type: BLOOD SPECIMENOrdering Facility: [facility] Address: [address] [place] [address] Performed By: #### 5 7021-8 ####[facility] LABCLIA [id number] [place] [address] [place] Lymphocytes (Bld) [#/Vol] 2.87 10*3/uL Normal 1.00-4.00 [facility] Comment on above: Order Comment: Speci men Type: BLOOD SPECIMENOrdering Facility: [facility] Address: [address] [place] [address] Performed By: #### 5 7021-8 ####[facility] LABCLIA [id number] [place] [address] [place] Lymphocytes/100 WBC (Bld) 24.6 % Normal [facility] Comment on above: Order Comment: Speci men Type: BLOOD SPECIMENOrdering Facility: [facility] Address: [address] [place] [address] Performed By: #### 5 7021-8 ####[facility] LABCLIA [id number] [place] [address] [place] MCH (RBC) [Entitic mass] 31.3 pg Normal 26.0-34.0 [facility] Comment on above: Order Comment: Speci men Type: BLOOD SPECIMENOrdering Facility: [facility] Address: [address] [place] [address] Performed By: #### 5 7021-8 ####[facility] LABIA [id number] [place] [address] [place] MCHC (RBC) [Mass/Vol] 32.9 g/dL Normal 30.5-36.0 [facility] Comment on above: Order Comment: Speci men Type: BLOOD SPECIMENOrdering Facility: [facility] Address: [address] [place] [address] Performed By: #### 5 7021-8 ####[facility] LABIA [id number] [place] [address] [place] MCV (RBC) [Entitic vol] 95.2 fL Normal 80.0-100.0 [facility] Comment on above: Order Comment: Speci men Type: BLOOD SPECIMENOrdering Facility: [facility] Address: [address] [place] [address] Performed By: #### 5 7021-8 ####[facility] LABCLIA [id number] [place] [address] [place] Monocytes (Bld) [#/Vol] 1.20 10*3/uL High <0.87 [facility] Comment on above: Order Comment: Speci men Type: BLOOD SPECIMENOrdering Facility: [facility] Address: [address] [place] [address] Performed By: #### 5 7021-8 ####[facility] LABCLIA [id number] [place] [address] [place] Monocytes/100 WBC (Bld) 10.3 % Normal [facility] Comment on above: Order Comment: Speci men Type: BLOOD SPECIMENOrdering Facility: [facility] Address: [address] [place] [address] Performed By: #### 5 7021-8 ####[facility] LABCLIA [id number] [place] [address] [place] Neutrophils (Bld) [#/Vol] 6.97 10*3/uL Normal 1.45-7.50 [facility] Comment on above: Order Comment: Speci men Type: BLOOD SPECIMENOrdering Facility: [facility] Address: [address] [place] [address] Performed By: #### 5 7021-8 ####[facility] LABCLIA [id number] [place] [address] [place] Neutrophils/100 WBC (Bld) 59.7 % Normal [facility] Comment on above: Order Comment: Speci men Type: BLOOD SPECIMENOrdering Facility: [facility] Address: [address] [place] [address] Performed By: #### 5 7021-8 ####[facility] LABIA [id number] [place] [address] [place] Nucleated RBC (Bld) [#/Vol] 10*3/uL Normal <0.01 [facility] Comment on above: Order Comment: Speci men Type: BLOOD SPECIMENOrdering Facility: [facility] Address: [address] [place] [address] Performed By: #### 5 7021-8 ####[facility] LABCLIA [id number] [place] [address] [place] Nucleated RBC/100 WBC (Bld) [Ratio] 0.0 /100 WBC Normal [facility] Comment on above: Order Comment: Speci men Type: BLOOD SPECIMENOrdering Facility: [facility] Address: [address] [place] [address] Performed By: #### 5 7021-8 ####[facility] [id number] [place] [address] [place] Platelet mean volume (Bld) [Entitic vol] 11.4 fL Normal 9.0-12.7 [facility] Comment on above: Order Comment: Speci men Type: BLOOD SPECIMENOrdering Facility: [facility] Address: [address] [place] [address] Performed By: #### 5 7021-8 ####[facility] [id number] [place] [address] [place] Platelets (Bld) [#/Vol] 220 10*3/uL Normal 150-400 [facility] Comment on above: Order Comment: Speci men Type: BLOOD SPECIMENOrdering Facility: [facility] Address: [address] [place] [address] Result Comment: No c lot detected. Performed By: #### 5 7021-8 ####[facility] [id number] [place] [address] [place] RBC (Bld) [#/Vol] 4.76 10*6/uL Normal 3.90-5.20 [facility] Comment on above: Order Comment: Speci men Type: BLOOD SPECIMENOrdering Facility: [facility] Address: [address] [place] [address] Performed By: #### 5 7021-8 ####[facility] [id number] [place] [address] [place] WBC (Bld) [#/Vol] 11.66 10*3/uL High 3.70-11.00 [facility] Comment on above: Order Comment: Speci men Type: BLOOD SPECIMENOrdering Facility: [facility] Address: [address] [place] [address] Performed By: #### 5 7021-8 ####[facility] SUE [id number] [place] R[address]RIG[address] [address] [place] CNOVon 01-29-2024 CNOV Office Visit (FAMPWS ) DORA BRYANT ([id number]) 1945 F Date Time Provider Department 01/29/24 10:20 AM [facility] During your visit today, we recorded the following information about you: Pulse Respiration Blood pressure Weight 75/minute 12/minute 128/64 60.3 kg Height 1.499 m Elan Garcia MD 01/29/2024 10:40 AM Addendum Chief Complaint Patient presents with: ER F/U: COLITIS last Wednesday01/22/24 rectal bleeding HPI Dora Bryant is a 78 year old female who presents here today for Above Complaints.. Patient evaluated at [facility] ED on 01/22 for complaint of lower [...] of pituitary gland and craniopharyngeal duct (pouch) ([facility]) Carpal tunnel syndrome CKD (chronic kidney disease), stage III ([facility]) Closed rib fracture 5,6,7,8,9,10 from [...] workup negative. 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 Sung-endocrinology Pituitary adenoma ([facility]) repeat MRI in 2024 Retinal [...] Nitrofurantoin Other: See Comments Possible allergic reaction [place] [Hydrocodone-* Other: See Comments Possible allergic reaction [...] mcg/actuation inhaler (more content not included)... Normal [facility] Comprehensive metabolic 2000 panelon 01-29-2024 Albumin [Mass/Vol] 4.0 g/dL Normal 3.9-4.9 [facility] Comment on above: Order Comment: Speci men Type: BLOOD SPECIMENOrdering Facility: [facility] Address: [address] [place] [address] Performed By: #### 2 4323-8 ####[facility] LABCLIA [id number] [place] [address] [place] ALP [Catalytic activity/Vol] 75 U/L Normal 34-123 [facility] Comment on above: Order Comment: Speci men Type: BLOOD SPECIMENOrdering Facility: [facility] Address: [address] [place] [address] Performed By: #### 2 4323-8 ####[facility] LABCLIA [id number] [place] [address] [place] ALT [Catalytic activity/Vol] 17 U/L Normal 7-38 [facility] Comment on above: Order Comment: Speci men Type: BLOOD SPECIMENOrdering Facility: [facility] Address: [address] [place] [id number] Performed By: #### 2 4323-8 ####[facility] LABCLIA [id number] [place] [address] [place] Anion gap [Moles/Vol] 14 mmol/L Normal 9-18 [facility] Comment on above: Order Comment: Speci men Type: BLOOD SPECIMENOrdering Facility: [facility] Address: [address] [place] [address] Performed By: #### 2 4323-8 ####[facility] LABCLIA [id number] [place] [address] [place] AST [Catalytic activity/Vol] 35 U/L Normal 13-35 [facility] Comment on above: Order Comment: Speci men Type: BLOOD SPECIMENOrdering Facility: [facility] Address: [address] [place] [address] Performed By: #### 2 4323-8 ####[facility] LABCLIA [id number] [place] [address] [place] Bilirubin [Mass/Vol] 0.3 mg/dL Normal 0.2-1.3 [facility] Comment on above: Order Comment: Speci men Type: BLOOD SPECIMENOrdering Facility: [facility] Address: [address] [place] [address] Performed By: #### 2 4323-8 ####[facility] LABCLIA [id number] [place] [address] [place] Calcium [Mass/Vol] 8.9 mg/dL Normal 8.5-10.2 [facility] Comment on above: Order Comment: Speci men Type: BLOOD SPECIMENOrdering Facility: [facility] Address: [address] [place], [place] [address] Performed By: #### 2 4323-8 ####[facility] LABCLIA [id number] [place] [address] [place] Chloride [Moles/Vol] 108 mmol/L High 97-105 [facility] Comment on above: Order Comment: Speci men Type: BLOOD SPECIMENOrdering Facility: [facility] Address: [address] [place] [address] Performed By: #### 2 4323-8 ####[facility] LABCLIA [id number] [place] [address] [place] CO2 [Moles/Vol] 20 mmol/L Low 22-30 [facility] Comment on above: Order Comment: Speci men Type: BLOOD SPECIMENOrdering Facility: [facility] Address: [address] [place] [address] Performed By: #### 2 4323-8 ####[facility] LABCLIA [id number] [place] [address] [place] Creatinine [Mass/Vol] 1.07 mg/dL High 0.58-0.96 [facility] Comment on above: Order Comment: Speci men Type: BLOOD SPECIMENOrdering Facility: [facility] Address: [address] [place] [address] Performed By: #### 2 4323-8 ####[facility] LABCLIA [id number] [place] [address] [place] Creatinine and Glomerular filtration rate.predicted panel (S/P/Bld) 54 mL/min/1.73m??? Low >=60 [facility] Comment on above: Order Comment: Speci men Type: BLOOD SPECIMENOrdering Facility: [facility] Address: [address] [place] [address] Result Comment: Batool mated Glomerular Filtration Rate [...] actual GFR. Performed By: #### 2 4323-8 ####[facility] LABCLIA [id number] [place] [address] [place] Glucose [Mass/Vol] 69 mg/dL Low 74-99 [facility] Comment on above: Order Comment: Speci men Type: BLOOD SPECIMENOrdering Facility: [facility] Address: [address] [place] [address] Result Comment: The [place] [employer] (ADA) provides guidance for cutoff [...] Standards of Medical Care in Diabetes 2016, [place] [employer]. Diabetes Care. 2016.39(Suppl 1). Performed By: #### 2 4323-8 ####[facility] LABIA [id number] [place] [address] [place] Potassium [Moles/Vol] 4.2 mmol/L Normal 3.7-5.1 [facility] Comment on above: Order Comment: Speci men Type: BLOOD SPECIMENOrdering Facility: [facility] Address: [address] [place] [address] Performed By: #### 2 4323-8 ####[facility] LABIA [id number] [place] [address] [place] Protein [Mass/Vol] 6.4 g/dL Normal 6.3-8.0 [facility] Comment on above: Order Comment: Speci men Type: BLOOD SPECIMENOrdering Facility: [facility] Address: [address] [place] [address] Performed By: #### 2 4323-8 ####[facility] LABCLIA [id number] [place] [address] [place] Sodium [Moles/Vol] 142 mmol/L Normal 136-144 [facility] Comment on above: Order Comment: Speci men Type: BLOOD SPECIMENOrdering Facility: [facility] Address: [address] [place] [address] Performed By: #### 2 4323-8 ####[facility] LABCLIA [id number] [place] [address] [place] Urea nitrogen [Mass/Vol] 14 mg/dL Normal 7-21 [facility] Comment on above: Order Comment: Speci men Type: BLOOD SPECIMENOrdering Facility: [facility] Address: [address] [place] [address] Performed By: #### 2 4323-8 ####[facility] LABCLIA [id number] [address] [place] CNPNon 01-24-2024 CNPN Telephone (FAMPWS) DORA BRYANT ([id number]) 1945 F Date Time Provider Department 01/24/24 [facility] During your visit today, we recorded [...] medications prescribed. Pharmacy would be [facility] in [place]. Elan Garcia MD 01/24/2024 10:21 AM Signed [...] [K21.9] 04/26/2007 Routine general medical examination at [facility]*04/22/2009 04/15/2016 Benign Neoplasm of Colon [D12.6] 04/22/2009 [...] [K81.9] 07/15/201110/10 (more content not included)... Normal [facility] Absolute lymphocyte countOrd ered By: Kyle Torres on 01-22-2024 Lymphocytes Auto (Unsp spec) [#/Vol] 3.45 10*3/uL 0.83-4.51 [facility] Activated partial thrombopla stin time (aPTT) in platelet poor plasma by coagulation aOrdered By: Kyle Torres on 01-22-2024 aPTT Coag (PPP) [Time] 28.6 s 24.1-36.2 [facility] Automated lymphocyte count a s percentage of total leukocytesOrdered By: Kyle Torres on 01-22-2024 Lymphocytes/100 WBC Auto (Unsp spec) 27.8 % 19-41 [facility] Basophil percentageOrdered B y: Kyle Torres on 01-22-2024 Basophils/100 WBC (Bld) 0.7 % 0-1 [facility] Chloride [Moles/Vol] 112 mmol/L 98-107 [facility] Eosinophils/100 WBC (Bld) 1.9 % 0-5 [facility] Glucose [Mass/Vol] 99 mg/dL 74-106 [facility] Hemoglobin (Bld) [Mass/Vol] 14.9 g/dL 12.0-15.0 [facility] Lactate [Moles/Vol] 1.1 mmol/L 0.4-2.0 [facility] Monocytes/100 WBC (Bld) 5.8 % 0-10 [facility] Neutrophils (Bld) [#/Vol] 7.9 10*3/uL 2.0-7.7 [facility] Neutrophils/100 WBC (Bld) 63.4 % 47-70 [facility] Potassium [Moles/Vol] 4.6 mmol/L 3.5-5.1 [facility] Sodium [Moles/Vol] 141 mmol/L 136-145 [facility] WBC (Bld) [#/Vol] 12.4 10*3/uL 4.4-11.0 [facility] Determination of erythrocyte mean corpuscular volume (MCV)Ordered By: Kyle Torres on 01-22-2024 MCV (RBC) [Entitic vol] 93.7 fL 81-99 [facility] Erythrocyte distribution wid th ratioOrdered By: Kyle Torres on 01-22-2024 Erythrocyte distribution width (RBC) [Ratio] 14.1 % 11.6-14.6 [facility] Erythrocyte distribution wid th standard deviationOrdered By: Kyle Torres on 01-22-2024 Erythrocyte distribution width (RBC) [Entitic vol] 49.1 fL 35.1-43.9 [facility] Hematocrit Auto (Bld) [Volum e fraction]Ordered By: Kyle Torres on 01-22-2024 Hematocrit (Bld) [Volume fraction] 44.8 % 37-47 [facility] Immature granulocytes/100 WB C Auto (Bld)Ordered By: Kyle Torres on 01-22-2024 Immature granulocytes/100 WBC (Bld) 0.400 % 0.0-0.9 [facility] Comment on above: IG% - Immature Granu locytes (promyelocytes, myelocytes and metamyelocytes) > 1% indicates that a LEFT SHIFT is Present. Laboratory - Chemistry and C hemistry - challengeOrdered By: Kyle Torres on 01-22-2024 CO2 [Moles/Vol] 27.0 mmol/L 21.0-32.0 [facility] Magnesium [Mass/Vol] 2.5 mg/dL 1.6-2.6 [facility] Urea nitrogen/Creatinine [Mass ratio] 16.1 mg/mg 10-20 [facility] Laboratory - CoagulationOrde red By: Kyle Torres on 01-22-2024 INR Coag (Bld) [Relative time] 0.9 {INR} [facility] PT Coag (PPP) [Time] 12.5 s 11.7-14.9 [facility] Laboratory - Hematology and Cell countsOrdered By: Kyle Torres on 01-22-2024 MCH (RBC) [Entitic mass] 31.2 pg 27.0-32.0 [facility] MCHC (RBC) [Mass/Vol] 33.3 g/dL 32-36 [facility] Nucleated RBC/100 WBC (Bld) [Ratio] 0 % 0-5 [facility] Platelet mean volume (Bld) [Entitic vol] 10.0 fL 6.2-12.0 [facility] Platelets (Bld) [#/Vol] 276 10*3/uL 150-450 [facility] Lower GI hemoglobin IA Ql (S tl)Ordered By: Kyle Torres on 01-22-2024 Stool Occult Blood (DAMARI) Positive [facility] No Panel InformationOrdered By: Kyle Torres on 01-22-2024 Estimated Creatinine Clearance Calc 33.05 ml/min [facility] Estimated GFR (MDRD) Amer 57 mL/min >60 [facility] Comment on above: GFR Calc Estimated GFR (MDRD) Non-Af Amer 47 mL/min >60 [facility] Comment on above: Non- GFR Calc RBC Auto (Bld) [#/Vol]Ordere d By: Kyle Torres on 01-22-2024 RBC (Bld) [#/Vol] 4.78 10*6/uL 4.2-5.4 [facility] Serum or plasma calcium hayden urement (mass/volume)Ordered By: Kyle Torres on 01-22-2024 Calcium [Mass/Vol] 9.4 mg/dL 8.5-10.1 [facility] Serum or plasma creatinine m easurement (mass/volume)Ordered By: Kyle Torres on 01-22-2024 Creatinine [Mass/Vol] 1.18 mg/dL 0.55-1.02 [facility] Comment on above: The validity of the calculated GFR & GFRAA in patients over 70 years has not been determined. Clinical correlation is essential. Serum or plasma urea nitroge n measurement (mass/volume)Ordered By: Kyle Torres on 01-22-2024 Urea nitrogen [Mass/Vol] 19 mg/dL 7-18 [facility] Thin prep Papanicolaou smear with manual screeningOrdered By: Kyle Torres on 01-22-2024 Thin prep Papanicolaou smear with manual screening 2 5-15 [facility] CNOVon 01-05-2024 [facility] DORA BRYANT ([id number]) 1945 F Date Time Provider Department 01/05/24 [...] of pituitary gland and craniopharyngeal duct (pouch) ([facility]) Carpal tunnel syndrome CKD (chronic kidney disease), stage III ([facility]) Closed rib fracture 5,6,7,8,9,10 from [...] workup negative. 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 Sung-endocrinology Pituitary adenoma ([facility]) repeat MRI in 2024 Retinal [...] Nitrofurantoin Other: See Comments Possible allergic reaction [place] [Hydrocodone-* Other: See Comments Possible allergic reaction [...] CALCIUM CARBONATE/ (more content not included)... Normal [facility] XR LUMBAR 3V AP/LAT/L5-S1on 01-05-2024 XR LUMBAR [...] spine are presented. FINDINGS: There are five igq-pmo-egcotug lumbar vertebrae. No acute fracture seen. There is grade 1 L4 on L5 and L5 on S1 anterolisthesis. The disc spaces are grossly preserved. There is mild osteophyte formation, with facet arthrosis in the lower lumbar spine. Multilevel kissing spine seen on lateral view. IMPRESSION: Lumbar spine degenerative changes as described above. Forensic Manager: JODY Transcribe Date/Time: Jan 05 2024 2:55P Dictated by : MARY REGAN MD This examination was interpreted and the report reviewed and electronically signed by: MARY REGAN MD on Jan 05 2024 2:57PM EST [id number] Normal [facility] XR Lumbar spine 3 Viewson IMPRESSION: Lumbar s pine degenerative changes as described above. Forensic Manager: [facility] Transcribe Date/Time: Jan 05 2024 [...] spine are presented. FINDINGS: There are five zcc-cwq-enscivz lumbar vertebrae. No acute fracture seen. There is grade 1 L4 on L5 and L5 on S1 anterolisthesis. The disc spaces are grossly preserved. There is mild osteophyte formation, with facet arthrosis in the lower lumbar spine. Multilevel kissing spine seen on lateral view. DIVISION OF RADIOLOGY Provider, [facility] - 01/05/2024 * * *Final Report* * [...] spine are presented. FINDINGS: There are five wkw-uyl-imprqug lumbar vertebrae. No acute fracture seen. There is grade 1 L4 on L5 and L5 on S1 anterolisthesis. The disc spaces are grossly preserved. There is mild osteophyte formation, with facet arthrosis in the lower lumbar spine. Multilevel kissing spine seen on lateral view. IMPRESSION IMPRESSION: Lumbar spine degenerative changes as described above. Forensic Manager: [facility] Transcribe Date/Time: Jan 05 2024 2:55P Dictated by : MARY REGAN MD This examination was interpreted and the report reviewed and electronically signed by: MARY REGAN MD on Jan 05 2024 2:57PM [facility] Radiology Study observation (narrative) [facility] XR Lumbar spine 3 ViewsOrder ed By: Ccf Provider on 01-05-2024 [facility] XR Ribs - right Views and [facility] PAon 12-06-2023 IMPRESSION: MINIMALLY DISPLACED LATERAL 10TH RIB FRACTURE. REMOTE HEALED ADDITIONAL FRACTURES DESCRIBED. NO ACUTE PROCESS IN THE CHEST. NO PNEUMOTHORAX Forensic Manager: [facility] Transcribe Date/Time: Dec 06 2023 1:02P Dictated by : WINIFRED SAMAYOA MD This examination was interpreted and the report reviewed and electronically signed by: WINIFRED SAMAYOA MD on Dec 06 2023 1:05PM [facility] DIVISION OF RADIOLOGY * * *Final Report* [...] ribs DIVISION OF RADIOLOGY Provider, Rylee Real [facility] - 12/06/2023 * * *Final Report* * [...] ACUTE PROCESS IN THE CHEST. NO PNEUMOTHORAX Forensic Manager: [facility] Transcribe Date/Time: Dec 06 2023 1:02P Dictated by : WINIFRED SAMAYOA MD This examination was interpreted and the report reviewed and electronically signed by: WINIFRED SAMAYOA MD on Dec 06 2023 1:05PM EST [facility] XR Ribs - right Views and est PAOrdered By: Ccf Provider on 12-06-2023 [facility] XR Ribs - right Views and est PAon 12-01-2023 Radiology Study observation (narrative) [facility] UA DIP, URINE (POC)on 2022 BILIRUBIN UA (POCT) Negative Negative [facility] CLARITY UA (POCT) Cloudy [facility] COLOR UA (POCT) Yellow [facility] GLUCOSE UA (POCT) Negative Negative mg/dL [facility] Hemoglobin Ql (U) Trace-intact Abnormal Negative [facility] KETONE UA (POCT) Negative Negative mg/dL [facility] LEUKOCYTES UA (POCT) Moderate Abnormal Negative [facility] NITRITE UA (POCT) Negative Negative [facility] PH UA (POCT) 5.5 4.5 - 8.0 [facility] Protein Ql (U) Negative Negative mg/dL [facility] SPECIFIC GRAVITY UA (POCT) 1.025 1.005 - 1.030 [facility] UROBILINOGEN UA (POCT) 0.2 E.U./dL Normal E.U./dL [facility] Laboratory - Chemistry and C hemistry - challengeOrdered By: Lei Sung on 07-21-2023 Free T4 [Mass/Vol] 0.93 ng/dL 0.76-1.46 [facility] No Panel InformationOrdered By: Lei Sung on 07-21-2023 Free Triiodothyronine (T3) pg/dL 2.2 pg/mL 2.18-3.98 [facility] Vitamin D 25-Hydroxy 65.4 ng/mL [facility] Comment on above: Vitamin D 25(OH) Sta tus Range Deficiency <20 ng/mL (50nmol/L) Insufficiency 20 - 30 ng/mL (50 - 75 nmol/L) Sufficiency 30 - 100 ng/mL (75 - 250 nmol/L) Toxicity >100 ng/mL (>250 nmol/L) No Panel InformationOrdered By: Alejandra Ascencio on 07-21-2023 Somatomedin-C 65 ng/mL 42-185 [facility] Comment on above: Performed at: [address] [id number] Director: Crystal Keenan MD, Phone: [phone] Laboratory - Chemistry and C hemistry - challengeOrdered By: Lei Sung on 05-20-2023 Free T4 [Mass/Vol] 0.73 ng/dL 0.76-1.46 [facility] No Panel InformationOrdered By: Lei Sung on 05-20-2023 Free Triiodothyronine (T3) pg/dL 1.7 pg/mL 2.18-3.98 [facility] Vitamin D 25-Hydroxy 122.2 ng/mL [facility] Comment on above: Vitamin D 25(OH) [...] elevated values when tested with the [employer] [email or web address] Vitamin D assay. With fluorescein interference, observed Vitamin D values can be as high as >150 ng/mL (>375 nmol/L). Samples should be resubmitted post fluorescein clearance to ensure there is no interference with Vitamin D test results. Absolute lymphocyte countOrd ered By: Dr. Yoder on 04-02-2023 Lymphocytes Auto (Unsp spec) [#/Vol] 3.03 10*3/uL 0.83-4.51 [facility] Basophil percentageOrdered B y: Dr. Yoder on 04-02-2023 Basophils/100 WBC (Bld) 0.9 % 0-1 [facility] Bilirubin [Mass/Vol] 0.50 mg/dL 0.20-1.00 [facility] Comment on above: For patients on eltr ombopag therapy, use of Dimension [place] TBIL is not recommended. Chloride [Moles/Vol] 111 mmol/L 98-107 [facility] Cholesterol [Mass/Vol] 183 mg/dL <200 [facility] Comment on above: <200 mg/dL Desirable 200-240 mg/dL Borderline >240 mg/dL High Risk Eosinophils/100 WBC (Bld) 3.6 % 0-5 [facility] Glucose [Mass/Vol] 83 mg/dL 74-106 [facility] Neutrophils (Bld) [#/Vol] 5.1 10*3/uL 2.0-7.7 [facility] Neutrophils/100 WBC (Bld) 54.4 % 47-70 [facility] Potassium [Moles/Vol] 3.6 mmol/L 3.5-5.1 [facility] Protein [Mass/Vol] 6.3 g/dL 6.4-8.2 [facility] Sodium [Moles/Vol] 143 mmol/L 136-145 [facility] Triglyceride [Mass/Vol] 98 mg/dL <199 [facility] Comment on above: The drugs N-Acetylcy steine and Metamizole may falsely depress this assay.Serum Triglycerides Reference Interval Normal <150 mg/dL Borderline high 150 - 199 mg/dL High 200 - 499 mg/dL Very High > or = 500 mg/dL WBC (Bld) [#/Vol] 9.4 10*3/uL 4.4-11.0 [facility] Blood erythrocytes count (nu mber/volume)Ordered By: Dr. Yoder on 04-02-2023 RBC (Bld) [#/Vol] 4.73 10*6/uL 4.2-5.4 [facility] Blood hemoglobin measurement (mass/volume)Ordered By: Dr. Yoder on 04-02-2023 Hemoglobin (Bld) [Mass/Vol] 14.8 g/dL 12.0-15.0 [facility] Blood lymphocytes/100 leukoc ytesOrdered By: Dr. Yoder on 04-02-2023 Lymphocytes/100 WBC (Bld) 32.3 % 19-41 [facility] Blood monocytes/100 leukocyt esOrdered By: Dr. Yoder on 04-02-2023 Monocytes/100 WBC (Bld) 8.3 % 0-10 [facility] Blood platelet mean volumeOr dered By: Dr. Yoder on 04-02-2023 Platelet mean volume (Bld) [Entitic vol] 10.3 fL 6.2-12.0 [facility] Determination of erythrocyte mean corpuscular volume (MCV)Ordered By: Dr. Yoder on 04-02-2023 MCV (RBC) [Entitic vol] 96.8 fL 81-99 [facility] Hematocrit Auto (Bld) [Volum e fraction]Ordered By: Dr. Yoder on 04-02-2023 Hematocrit (Bld) [Volume fraction] 45.8 % 37-47 [facility] Laboratory - Chemistry and C hemistry - challengeOrdered By: Dr. Yoder on 04-02-2023 ALP [Catalytic activity/Vol] 94 U/L 45-117 [facility] ALT [Catalytic activity/Vol] 26 U/L 13-56 [facility] CO2 [Moles/Vol] 26.0 mmol/L 21.0-32.0 [facility] Globulin (S) [Mass/Vol] 2.8 g/dL 2.2-4.2 [facility] Urea nitrogen/Creatinine [Mass ratio] 17.0 mg/mg 10-20 [facility] Laboratory - Hematology and Cell countsOrdered By: Dr. Yoder on 04-02-2023 Erythrocyte distribution width (RBC) [Entitic vol] 51.3 fL 35.1-43.9 [facility] Erythrocyte distribution width (RBC) [Ratio] 14.4 % 11.6-14.6 [facility] Immature granulocytes/100 WBC (Bld) 0.500 % 0.0-0.9 [facility] Comment on above: IG% - Immature Granu locytes (promyelocytes, myelocytes and metamyelocytes) > 1% indicates that a LEFT SHIFT is Present. MCH (RBC) [Entitic mass] 31.3 pg 27.0-32.0 [facility] Nucleated RBC/100 WBC (Bld) [Ratio] 0 % 0-5 [facility] MCHC Auto (RBC) [Mass/Vol]Or dered By: Dr. Yoder on 04-02-2023 MCHC (RBC) [Mass/Vol] 32.3 g/dL 32-36 [facility] No Panel InformationOrdered By: Dr. Yoder on 04-02-2023 Estimated Creatinine Clearance Calc 44.38 ml/min [facility] Estimated GFR (MDRD) Amer 69 mL/min >60 [facility] Comment on above: GFR Calc Estimated GFR (MDRD) Non-Af Amer 57 mL/min >60 [facility] Comment on above: Non- GFR Calc Platelets bldOrdered By: Dr. Yoder on 04-02-2023 Platelets (Bld) [#/Vol] 261 10*3/uL 150-450 [facility] Serum or plasma albumin hayden urement (mass/volume)Ordered By: Dr. Yoder on 04-02-2023 Albumin [Mass/Vol] 3.5 g/dL 3.2-5.0 [facility] Serum or plasma albumin/glob ulin mass ratioOrdered By: Dr. Yoder on 04-02-2023 Albumin/Globulin [Mass ratio] 1.2 {ratio} 0.9-2.4 [facility] Serum or plasma calcium hayden urement (mass/volume)Ordered By: Dr. Yoder on 04-02-2023 Calcium [Mass/Vol] 8.7 mg/dL 8.5-10.1 [facility] Serum or plasma cholesterol in HDL measurement (mass/volume)Ordered By: Dr. Yoder on 04-02-2023 Cholesterol in HDL [Mass/Vol] 61 mg/dL >40 [facility] Comment on above: The drugs N-Acetylcy steine and Metamizole may falsely depress this assay. Reference Range HDL <40 mg/dL Low HDL Cholesterol HDL >or= 60 mg/dL High HDL Cholesterol Serum or plasma cholesterol in VLDL measurement (mass/volume)Ordered By: Dr. Yoder on 04-02-2023 Cholesterol in VLDL [Mass/Vol] 20 mg/dL 5-40 [facility] Serum or plasma creatinine m easurement (mass/volume)Ordered By: Dr. Yoder on 04-02-2023 Creatinine [Mass/Vol] 1.00 mg/dL 0.55-1.02 [facility] Comment on above: The validity of the calculated GFR & GFRAA in patients over 70 years has not been determined. Clinical correlation is essential. Serum or plasma low density lipoprotein (LDL) cholesterol measurement (mass/volume)Ordered By: Dr. Yoder on 04-02-2023 Cholesterol in LDL [Mass/Vol] 102 mg/dL 0-130 [facility] Serum or plasma urea nitroge n measurement (mass/volume)Ordered By: Dr. Yoder on 04-02-2023 Urea nitrogen [Mass/Vol] 17 mg/dL 7-18 [facility] Thin prep Papanicolaou smear with manual screeningOrdered By: Dr. Yoder on 04-02-2023 Thin prep Papanicolaou smear with manual screening 24 U/L 15-37 [facility] Thin prep Papanicolaou smear with manual screening 6 5-15 [facility] Whole blood hemoglobin A1c/t otal hemoglobin ratio (mass fraction)Ordered By: Dr. Yoder on 04-02-2023 HbA1c (Bld) [Mass fraction] 5.6 % 3.8-5.6 [facility] Comment on above: Normal < 5.7 % Predi abetic 5.7 - 6.4 % Diabetic >or= 6.5 % Please note range changes. Absolute lymphocyte countOrd ered By: Violeta Harris on 04-01-2023 Lymphocytes Auto (Unsp spec) [#/Vol] 2.08 10*3/uL 0.83-4.51 [facility] Basophil percentageOrdered B y: Violeta Harris on 04-01-2023 Chloride [Moles/Vol] 109 mmol/L 98-107 [facility] Glucose [Mass/Vol] 91 mg/dL 74-106 [facility] Potassium [Moles/Vol] 4.0 mmol/L 3.5-5.1 [facility] Sodium [Moles/Vol] 143 mmol/L 136-145 [facility] Basophils/100 WBC (Bld) 0.8 % 0-1 [facility] Eosinophils/100 WBC (Bld) 0.8 % 0-5 [facility] Neutrophils (Bld) [#/Vol] 8.3 10*3/uL 2.0-7.7 [facility] Neutrophils/100 WBC (Bld) 73.0 % 47-70 [facility] WBC (Bld) [#/Vol] 11.4 10*3/uL 4.4-11.0 [facility] Blood erythrocytes count (nu mber/volume)Ordered By: Violeta Harris on 04-01-2023 RBC (Bld) [#/Vol] 4.73 10*6/uL 4.2-5.4 [facility] Blood hemoglobin measurement (mass/volume)Ordered By: Violeta Harris on 04-01-2023 Hemoglobin (Bld) [Mass/Vol] 14.9 g/dL 12.0-15.0 [facility] Blood lymphocytes/100 leukoc ytesOrdered By: Violeta Harris on 04-01-2023 Lymphocytes/100 WBC (Bld) 18.3 % 19-41 [facility] Blood monocytes/100 leukocyt esOrdered By: Violeta Harris on 04-01-2023 Monocytes/100 WBC (Bld) 6.7 % 0-10 [facility] Blood platelet adequacy dete ction by light microscopyOrdered By: Violeta Harris on 04-01-2023 Platelets LM Ql (Bld) ADEQUATE ADEQ [facility] Blood platelet mean volumeOr dered By: Violeta Harris on 04-01-2023 Platelet mean volume (Bld) [Entitic vol] 10.8 fL 6.2-12.0 [facility] Determination of erythrocyte mean corpuscular volume (MCV)Ordered By: Violeta Harris on 04-01-2023 MCV (RBC) [Entitic vol] 97.9 fL 81-99 [facility] Hematocrit Auto (Bld) [Volum e fraction]Ordered By: Violeta Harris on 04-01-2023 Hematocrit (Bld) [Volume fraction] 46.3 % 37-47 [facility] INR in Blood by Coagulation assayOrdered By: Violeta Harris on 04-01-2023 INR Coag (Bld) [Relative time] 1.0 {INR} [facility] Laboratory - Chemistry and C hemistry - challengeOrdered By: Violeta Harris on 04-01-2023 CO2 [Moles/Vol] 24.0 mmol/L 21.0-32.0 [facility] Urea nitrogen/Creatinine [Mass ratio] 17.5 mg/mg 10-20 [facility] Laboratory - CoagulationOrde red By: Violeta Harris on 04-01-2023 aPTT Coag (Bld) [Time] 27.0 s 24.1-36.2 [facility] PT Coag (PPP) [Time] 13.5 s 11.7-14.9 [facility] Laboratory - Hematology and Cell countsOrdered By: Violeta Harris on 04-01-2023 Anisocytosis Ql (Bld) RARE [facility] Erythrocyte distribution width (RBC) [Entitic vol] 52.8 fL 35.1-43.9 [facility] Erythrocyte distribution width (RBC) [Ratio] 14.6 % 11.6-14.6 [facility] Immature granulocytes/100 WBC (Bld) 0.400 % 0.0-0.9 [facility] Comment on above: IG% - Immature Granu locytes (promyelocytes, myelocytes and metamyelocytes) > 1% indicates that a LEFT SHIFT is Present. MCH (RBC) [Entitic mass] 31.5 pg 27.0-32.0 [facility] Nucleated RBC/100 WBC (Bld) [Ratio] 0 % 0-5 [facility] MCHC Auto (RBC) [Mass/Vol]Or dered By: Violeta Harris on 04-01-2023 MCHC (RBC) [Mass/Vol] 32.2 g/dL 32-36 [facility] Macrocytes detectionOrdered By: Violeta Harris on 04-01-2023 Macrocytes Ql (Bld) RARE [facility] No Panel InformationOrdered By: Violeta Harris on 04-01-2023 Estimated Creatinine Clearance Calc 44.55 ml/min [facility] Estimated GFR (MDRD) Amer 67 mL/min >60 [facility] Comment on above: GFR Calc Estimated GFR (MDRD) Non-Af Amer 55 mL/min >60 [facility] Comment on above: Non- GFR Calc Platelets bldOrdered By: Aaron Harris on 04-01-2023 Platelets (Bld) [#/Vol] TNP [facility] Comment on above: Test not performedPl ease note: For this sample, a platelet estimate is provided rather than a platelet count due to platelet clumping. Other parameters associated with this sample are not affected by platelet clumping. If a more accurate platelet count is required, a redraw of the patient will be necessary.Previous reported result: 180 [id number]/hi2Kurist by: AVA on 04/01/23:1923 RBC morphologyOrdered By: Aidee Harris on 04-01-2023 RBC morphology finding Nom (Bld) N CHROM NORMAL NORM C&C [facility] Serum or plasma calcium hayden urement (mass/volume)Ordered By: Violeta Harris on 04-01-2023 Calcium [Mass/Vol] 8.8 mg/dL 8.5-10.1 [facility] Serum or plasma creatinine m easurement (mass/volume)Ordered By: Violeta Harris on 04-01-2023 Creatinine [Mass/Vol] 1.03 mg/dL 0.55-1.02 [facility] Comment on above: The validity of the calculated GFR & GFRAA in patients over 70 years has not been determined. Clinical correlation is essential. Serum or plasma urea nitroge n measurement (mass/volume)Ordered By: Violeta Harris on 04-01-2023 Urea nitrogen [Mass/Vol] 18 mg/dL 7-18 [facility] Thin prep Papanicolaou smear with manual screeningOrdered By: Violeta Harris on 04-01-2023 Thin prep Papanicolaou smear with manual screening 10 5-15 [facility] XR Chest PA and Lateralon IMPRESSION: No acute radiographic abnormality. Forensic Manager: JODY Transcribe Date/Time: Oct 21 2022 3:15P Dictated by : WINIFRED SAMAYOA MD This examination was interpreted and the report reviewed and electronically signed by: WINIFRED SAMAYOA MD on Oct 21 2022 3:16PM [facility] DIVISION OF RADIOLOGY * * *Final Report* [...] soft tissues: Unremarkable. DIVISION OF RADIOLOGY Provider, [facility] - 10/21/2022 * * *Final Report* * [...] Unremarkable. IMPRESSION IMPRESSION: No acute radiographic abnormality. Forensic Manager: JODY Transcribe Date/Time: Oct 21 2022 3:15P Dictated by : WINIFRED SAMAYOA MD This examination was interpreted and the report reviewed and electronically signed by: WINIFRED SAMAYOA MD on Oct 21 2022 3:16PM EST [facility] Radiology Study observation (narrative) [facility] XR Chest PA and LateralOrder ed By: Ccf Provider on 10-21-2022 [facility] No Panel Informationon 07-17 IMPRESSION: No acute bony finding. Forensic Manager: JODY Transcribe Date/Time: Jul 17 2022 1:07P Dictated by : LYLA LOVE MD This examination was interpreted and the report reviewed and electronically signed by: LYLA LOVE MD on Jul 17 2022 1:19PM EST DIVISION OF RADIOLOGY Radiology Study observation (narrative) [facility] No Panel InformationOrdered By: Ccf Provider on 07-17-2022 [facility] XR Hand - right PA and Later [...] spaces otherwise maintained. DIVISION OF RADIOLOGY Provider, [facility] - 07/17/2022 * * *Final Report* * [...] maintained. IMPRESSION IMPRESSION: No acute bony finding. Forensic Manager: JODY Transcribe Date/Time: Jul 17 2022 1:07P Dictated by : LYLA LOVE MD This examination was interpreted and the report reviewed and electronically signed by: LYLA LOVE MD on Jul 17 2022 1:19PM [facility] XR Wrist - right PA and Late [...] spaces otherwise maintained. DIVISION OF RADIOLOGY Provider, [facility] - 07/17/2022 * * *Final Report* * [...] maintained. IMPRESSION IMPRESSION: No acute bony finding. Forensic Manager: [employer] Transcribe Date/Time: Jul 17 2022 1:07P Dictated by : LYLA LOVE MD This examination was interpreted and the report reviewed and electronically signed by: LYLA LOVE MD on Jul 17 2022 1:19PM EST [facility] XR CHEST 2V FRONTAL/LATon [facility] XR Chest PA and Lateralon IMPRESSION: Stable chest. No acute cardiopulmonary process. Forensic Manager: [employer] Transcribe Date/Time: Jun 01 2022 11:45A [...] noted. [id number] _USE_DIVIS ION OF RADIOLOGY Provider, [facility] - 06/01/2022 * * *Final Report* * [...] IMPRESSION: Stable chest. No acute cardiopulmonary process. Forensic Manager: [facility] Transcribe Date/Time: Jun 01 2022 11:45A Dictated by : LEISA HAMPTON MD This examination was interpreted and the report reviewed and electronically signed by: LEISA HAMPTON MD on Jun 01 2022 11:47AM EST [facility] Radiology Study observation (narrative) [facility] XR Chest PA and LateralOrder ed By: Ccf Provider on 06-01-[address] [facility] [address] ABD/PEL WO IVCONon 2021 [facility] CBC W Auto Differential pane l (Bld)on 05-11-2022 Abs Immature Gran 0.07 k/uL <0.10 k/uL [facility] Basophils (Bld) [#/Vol] 0.06 10*3/uL <0.11 k/uL [facility] Basophils/100 WBC (Bld) 0.4 % [facility] Differential cell count method Nom (Bld) Auto [facility] Eosinophils (Bld) [#/Vol] 0.08 10*3/uL <0.46 k/uL [facility] Eosinophils/100 WBC (Bld) 0.6 % [facility] Erythrocyte distribution width (RBC) [Ratio] 14.2 % 11.5 - 15.0 % [facility] Hematocrit (Bld) [Volume fraction] 44.3 % 36.0 - 46.0 % [facility] Hemoglobin (Bld) [Mass/Vol] 14.4 g/dL 11.5 - 15.5 g/dL [facility] Immature Gran % 0.5 % [facility] Lymphocytes (Bld) [#/Vol] 2.51 10*3/uL 1.00 - 4.00 k/uL [facility] Lymphocytes/100 WBC (Bld) 18.7 % [facility] MCH (RBC) [Entitic mass] 31.2 pg 26.0 - 34.0 pg [facility] MCHC (RBC) [Mass/Vol] 32.5 g/dL 30.5 - 36.0 g/dL [facility] MCV (RBC) [Entitic vol] 96.1 fL 80.0 - 100.0 fL [facility] Monocytes (Bld) [#/Vol] 0.54 10*3/uL <0.87 k/uL [facility] Monocytes/100 WBC (Bld) 4.0 % [facility] Neutrophils (Bld) [#/Vol] 10.17 10*3/uL High 1.45 - 7.50 k/uL [facility] Neutrophils/100 WBC (Bld) 75.8 % [facility] Nucleated RBC (Bld) [#/Vol] 10*3/uL <0.01 k/uL [facility] Nucleated RBC/100 WBC (Bld) [Ratio] 0.0 /100 WBC [facility] Platelet mean volume (Bld) [Entitic vol] 10.6 fL 9.0 - 12.7 fL [facility] Platelets (Bld) [#/Vol] 288 10*3/uL 150 - 400 k/uL [facility] RBC (Bld) [#/Vol] 4.61 10*6/uL 3.90 - 5.2 0 m/uL [facility] WBC (Bld) [#/Vol] 13.43 10*3/uL High 3.70 - 11 .00 k/uL [facility] Absolute lymphocyte counton 04-30-2022 Lymphocytes Auto (Unsp spec) [#/Vol] 1.57 10*3/uL 0.83-4.51 [facility] Work Phone: Basophil percentageon 2021 Basophils/100 WBC (Bld) 0.4 % 0-1 [facility] Work Phone: Bilirubin [Mass/Vol] 0.40 mg/dL 0.20-1.00 [facility] Work Phone: Comment on above: For patients on eltr ombopag therapy, use of Dimension [place] TBIL is not recommended. Chloride [Moles/Vol] 110 mmol/L 98-107 [facility] Work Phone: Eosinophils/100 WBC (Bld) 0.7 % 0-5 [facility] Work Phone: Glucose [Mass/Vol] 84 mg/dL 74-106 [facility] [facility] Work Phone: Neutrophils (Bld) [#/Vol] 11.2 10*3/uL 2.0-7.7 [facility] Work Phone: Neutrophils/100 WBC (Bld) 81.1 % 47-70 [facility] Work Phone: Potassium [Moles/Vol] 4.2 mmol/L 3.5-5.1 [facility] Work Phone: Comment on above: Slight Hemolysis, Re sult may be falsely increased. Protein [Mass/Vol] 7.2 g/dL 6.4-8.2 [facility] Work Phone: Sodium [Moles/Vol] 140 mmol/L 136-145 [facility] Work Phone: WBC (Bld) [#/Vol] 13.8 10*3/uL 4.4-11.0 [facility] Work Phone: Blood erythrocytes count (nu mber/volume)on 04-30-2022 RBC (Bld) [#/Vol] 4.75 10*6/uL 4.2-5.4 [facility] Work Phone: Blood hemoglobin measurement (mass/volume)on 04-30-2022 Hemoglobin (Bld) [Mass/Vol] 14.9 g/dL 12.0-15.0 [facility] Work Phone: Blood lymphocytes/100 leukoc yteson 04-30-2022 Lymphocytes/100 WBC (Bld) 11.4 % 19-41 [facility] Work Phone: Blood monocytes/100 leukocyt eson 04-30-2022 Monocytes/100 WBC (Bld) 5.7 % 0-10 [facility] Work Phone: [phone] Blood platelet mean volumeon 04-30-2022 Platelet mean volume (Bld) [Entitic vol] 10.4 fL 6.2-12.0 [facility] Work Phone: [phone] Determination of erythrocyte mean corpuscular volume (MCV)on 04-30-2022 MCV (RBC) [Entitic vol] 95.2 fL 81-99 [facility] Work Phone: [phone] Hematocrit Auto (Bld) [Volum e fraction]on 04-30-2022 Hematocrit (Bld) [Volume fraction] 45.2 % 37-47 [facility] Work Phone: [phone] Laboratory - Chemistry and C hemistry - challengeon 04-30-2022 ALP [Catalytic activity/Vol] 104 U/L 45-117 [facility] Work Phone: [phone] ALT [Catalytic activity/Vol] 26 U/L 13-56 [facility] Work Phone: [phone] CO2 [Moles/Vol] 23.0 mmol/L 21.0-32.0 [facility] Work Phone: [phone] Free T4 [Mass/Vol] 0.85 ng/dL 0.76-1.[address] [facility] Work Phone: [phone] Globulin (S) [Mass/Vol] 3.4 g/dL 2.2-4.2 [facility] Work Phone: [phone] Urea nitrogen/Creatinine [Mass ratio] 15.0 mg/mg 10-20 [facility] Work Phone: Laboratory - Hematology and Cell countson 04-30-2022 Erythrocyte distribution width (RBC) [Entitic vol] 48.4 fL 35.1-43.9 [facility] Work Phone: [phone] Erythrocyte distribution width (RBC) [Ratio] 13.7 % 11.6-14.6 [facility] Work Phone: [phone] Immature granulocytes/100 WBC (Bld) 0.700 % 0.0-0.9 [facility] Work Phone: Comment on above: IG% - Immature Granu locytes (promyelocytes, myelocytes and metamyelocytes) > 1% indicates that a LEFT SHIFT is Present. MCH (RBC) [Entitic mass] 31.4 pg 27.0-32.0 [facility] Work Phone: Nucleated RBC/100 WBC (Bld) [Ratio] 0 % 0-5 [facility] Work Phone: MCHC Auto (RBC) [Mass/Vol]on 04-30-2022 MCHC (RBC) [Mass/Vol] 33.0 g/dL 32-36 [facility] Work Phone: No Panel Informationon 04-30 Estimated GFR (MDRD) Amer 60 mL/min >60 [facility] Work Phone: Comment on above: GFR Calc Estimated GFR (MDRD) Non-Af Amer 50 mL/min >60 [facility] Work Phone: Comment on above: Non- GFR Calc Follicle Stimulating Hormone 1.1 mIU/mL [facility] Work Phone: Comment on above: NORMAL REFERENCE RAN GES FEMALE FOLLICULAR 2.3 - 12.6 mIU/mL MID-CYCLE PEAK 5.2 - 17.5 mIU/mL LUTEAL 1.7 - 12.9 mIU/mL POST-MENOPAUSAL ON MHT 5.9 - 72.8 mIU/mL NOT ON MHT 12.7 - 132.2 mlU/mL MALE 0.7 - 10.8 mIU/mL Free Triiodothyronine (T3) pg/dL 2.1 pg/mL 2.18-3.98 [facility] Work Phone: Luteinizing Hormone < 0.2 mIU/mL [facility] Work Phone: Comment on above: NORMAL REFERENCE RAN GES FEMALE FOLLICULAR 1.9 - 26.2 mIU/mL MID-CYCLE PEAK 22.8 - 76.1 mIU/mL LUTEAL 0.6 - 16.6 mIU/mL POST-MENOPAUSAL ON MHT 1.1 - 52.4 mIU/mL NOT ON MHT 8.6 - 61.8 mIU/mL MALE 1.2 - 10.6 mIU/mL Somatomedin-C 54 ng/mL 48-191 [facility] Work Phone: Comment on above: Performed at: [address] [id number] Director: Crystal Keenan MD, Phone: [phone] Vitamin D 25-Hydroxy 92.8 ng/mL [facility] Work Phone: Comment on above: Vitamin D 25(OH) Sta tus Range Deficiency <20 ng/mL (50nmol/L) Insufficiency 20 - 30 ng/mL (50 - 75 nmol/L) Sufficiency 30 - 100 ng/mL (75 - 250 nmol/L) Toxicity >100 ng/mL (>250 nmol/L) Platelets bldon 04-30-2022 Platelets (Bld) [#/Vol] 296 10*3/uL 150-450 [facility] Work Phone: Serum or plasma albumin hayden urement (mass/volume)on 04-30-2022 Albumin [Mass/Vol] 3.8 g/dL 3.2-5.0 [facility] Work Phone: Serum or plasma albumin/glob ulin mass ratioon 04-30-2022 Albumin/Globulin [Mass ratio] 1.1 {ratio} 0.9-2.4 [facility] Work Phone: Serum or plasma calcium hayden urement (mass/volume)on 04-30-2022 Calcium [Mass/Vol] 8.9 mg/dL 8.5-10.1 [facility] Work Phone: Serum or plasma creatinine m easurement (mass/volume)on 04-30-2022 Creatinine [Mass/Vol] 1.13 mg/dL 0.55-1.02 [facility] Work Phone: Comment on above: The validity of the calculated GFR & GFRAA in patients over 70 years has not been determined. Clinical correlation is essential. Serum or plasma ferritin rosario surement (mass/volume)on 04-30-2022 Ferritin [Mass/Vol] 83 ng/mL 8-252 [facility] Work Phone: Serum or plasma urea nitroge n measurement (mass/volume)on 04-30-2022 Urea nitrogen [Mass/Vol] 17 mg/dL 7-18 [facility] Work Phone: Thin prep Papanicolaou smear with manual screeningon 04-30-2022 Thin prep Papanicolaou smear with manual screening 25 U/L 15-37 [facility] Work Phone: Comment on above: Slight Hemolysis, Re sult may be falsely increased. Thin prep Papanicolaou smear with manual screening 7 5-15 [facility] Work Phone: C-REACTIVE PROTEIN (CRP)on 0 03-21-2022 CRP [Mass/Vol] mg/L <0.9 mg/dL [facility] ESR Westergren method (Bld) [Velocity]on 03-20-2022 ESR (Bld) [Velocity] 12 mm/h 0 - 20 mm/hr [facility] No Panel Informationon 03-20 [facility] Radiology Study observation (narrative) [facility] XR HIP BILATERAL 5V PEL/AP/L AT EACH HIPon 03-20-2022 IMPRESSION: 1. No acute bony process. 2. Degenerative changes as detailed in report. Forensic Manager: JODY Transcribe Date/Time: Mar 20 2022 3:56P [...] _USE_DIVIS ION OF RADIOLOGY Provider, Rylee jackson [place] - 03/20/2022 * * *Final Report* * [...] 2. Degenerative changes as detailed in report. Forensic Manager: JODY Transcribe Date/Time: Mar 20 2022 3:56P Dictated by : LEISA HAMPTON MD This examination was interpreted and the report reviewed and electronically signed by: LEISA HAMPTON MD on Mar 20 2022 3:58PM [facility] XR Lumbar spine 3 Viewson IMPRESSION: Mild scoliotic curvature and stable degenerative changes. Stable anterolisthesis of L5 on S1 without associated pars interarticularis defect. Forensic Manager: JODY Transcribe Date/Time: Mar 20 2022 3:52P [...] pill. ZZZ_DO_[id number] _USE_DIVIS ION OF RADIOLOGY Provider, [facility] Far[facility] - 03/20/2022 * * *Final Report* * [...] on S1 without associated pars interarticularis defect. Forensic Manager: [facility] Transcribe Date/Time: Mar 20 2022 3:52P Dictated by : LEISA HAMPTON MD This examination was interpreted and the report reviewed and electronically signed by: LEISA HAMPTON MD on Mar 20 2022 3:56PM [facility] XR Foot - left AP and Latera l and obliqueon 05-30-2021 IMPRESSION: Postsurgical change. No complication. Forensic Manager: [facility] Transcribe Date/Time: May 30 2021 11:27A Dictated by : MILES KEYES MD This examination was interpreted and the report reviewed and electronically signed by: MILES KEYES MD on May 30 2021 11:28AM [facility] DIVISION OF RADIOLOGY * * *Final Report* [...] DIVISION OF RADIOLOGY Provider, [facility] [place] - 05/30/2021 * * *Final Report* * [...] identified. IMPRESSION IMPRESSION: Postsurgical change. No complication. Forensic Manager: JODY Transcribe Date/Time: May 30 2021 11:27A Dictated by : MILES KEYES MD This examination was interpreted and the report reviewed and electronically signed by: MILES KEYES MD on May 30 2021 11:28AM EST [facility] Radiology Study observation (narrative) [facility] XR Foot - left AP and Latera l and obliqueOrdered By: [facility] Provider on 05-30-2021 [facility] XR Chest PA and Lateralon IMPRESSION: Both diaphragmatic contours are mildly more lobular than previously but there are no findings elsewhere of significant pleural process and there are no acute radiographic abnormalities. Forensic Manager: JODY Transcribe Date/Time: Dec 20 2020 3:45P Dictated by : WAGNER ERNST MD This examination was interpreted and the report reviewed and electronically signed by: WAGNER ERNST MD on Dec 20 2020 3:50PM [facility] DIVISION OF RADIOLOGY * * *Final Report* [...] kyphoscoliosis. DIVISION OF RADIOLOGY Provider, Norma Farhan [facility] - 12/20/2020 * * *Final Report* * [...] and there are no acute radiographic abnormalities. Forensic Manager: JODY Transcribe Date/Time: Dec 20 2020 3:45P Dictated by : WAGNER ERNST MD This examination was interpreted and the report reviewed and electronically signed by: WAGNER ERNST MD on Dec 20 2020 3:50PM EST [facility] Radiology Study observation (narrative) [facility] XR Chest PA and LateralOrder ed By: [facility] Provider on 12-20-2020 [facility] XR Lumbar spine 3 Viewson IMPRESSION: Lumbar s pine degenerative changes as described above. Forensic Manager: JODY Transcribe Date/Time: Nov 19 2020 4:59P Dictated by : MARY REGAN MD This examination was interpreted and the report reviewed and electronically signed by: MARY REGAN MD on Nov 19 2020 5:01PM [facility] DIVISION OF RADIOLOGY * * *Final Report* [...] spine are presented. FINDINGS: There are five awe-blr-ojlhbho lumbar vertebrae. No acute fractures seen. There is grade 1 L5 5 on S1 anterolisthesis, similar to prior study. The disc spaces are well preserved. There is mild osteophyte formation. The bones are somewhat osteopenic. Questionable kissing spine. DIVISION OF RADIOLOGY Provider, [facility] - 11/19/2020 * * *Final Report* * [...] spine are presented. FINDINGS: There are five iiq-ptr-qafrqjq lumbar vertebrae. No acute fractures seen. There is grade 1 L5 5 on S1 anterolisthesis, similar to prior study. The disc spaces are well preserved. There is mild osteophyte formation. The bones are somewhat osteopenic. Questionable kissing spine. IMPRESSION IMPRESSION: Lumbar spine degenerative changes as described above. Forensic Manager: PSCSheila Transcribe Date/Time: Nov 19 2020 4:59P Dictated by : MARY REGAN MD This examination was interpreted and the report reviewed and electronically signed by: MARY REGAN MD on Nov 19 2020 5:01PM EST [facility] Radiology Study observation (narrative) [facility] XR Lumbar spine 3 ViewsOrder ed By: [facility] Provider on 11-19-2020 [facility] ANES [place] 10-28-2018 ANES POST HNO ID: [id number] thor: SULEIMAN Silvermanervice: AnesthesiologyAuthor Type: AnesthesiologistType: Anesthesia [...] 28, 2018 : 2:09 PM PAGER/CONTACT #: [facility] ANES PREOPon 10-28-2018 ANES PREOP HNO ID: [id number] thor: Mahin HernandezService: AnesthesiologyAuthor Type: AnesthesiologistType: Anesthesia [...] 42.7 09/14/2018Potassium 4.5 10/07/2018ANES DOS/PREOP NOTE: Vitals: [id number]: 118/75Pulse: 69Resp: 16Temp: 36.4 ?C (97.5 ?F)TempSrc: [...] : Mahin Hernandez MD PATIENT NAME: Dora MeeksTE: October 28, 2018 : 10:39 AM CSN: [id number] [facility] NURSING PROGon 10-28-2018 Protein mass conc HNO ID: [id number] thor: Margret (Rn) JOYCE Hartervice: NursingAuthor Type: Registered NurseType: Nursing Progress NoteFiled: 10/28/2018 3:04 PMNote Text:[id number] Received from or Drowsy No c/o [id number] Pt [id number] To phase II care Light diet to [id number] Iv removed Discharge instructions reviewed with pt and husbandAssisting pt to [id number] Up to br [id number] Discharged by wheelchair [facility] Protein mass conc HNO ID: [id number] thor: Dionicio (Rn) JOYCE Christinaervice: NursingAuthor Type: Registered NurseType: Nursing Progress NoteFiled: 10/28/2018 11:47 AMNote Text:Dr. Hernandez at bedside for Right infraclavicular nerve block. RN atbedside, pt monitored throughout, BP 144/70 Pulse 67 Temp 36.4 ?C(97.5 ?F) (Temporal Artery) Resp 16 SpO2 100% . Pt toleratedprocedure without difficulty. [facility] OPERATIVE NOon 10-28-2018 OPERATIVE NO HNO ID: [id number] thor: Leonard Alcarazvice: Orthopaedic SurgeryAuthor Type: PhysicianType: Operative ReportFiled: 10/28/2018 1:20 PMNote Text:OPERATIVE/PROCEDURE REPORT?LOG ID: [id number]/Procedure Date: 10/28/2018Incision/Procedure Start Time: 11:41 AMIncision Close/Procedure End Time: 1:00 PMSurgeon(s)/Proceduralist(s) and Geoscience Laboratory Technician(s):Surgeon(s) and Role: * Leonard Justice - PrimaryNurse [...] place with the Tevdeksuture.? A number of lxlpsa-ns-dqnczt from? the tendon were secured, andthe remaining [...] were no residents or fellows available.SIGNATURE: Leonard uJstice MD PATIENT NAME: Dora MeeksTE: October 28, 2018 : 1:20 PM PAGER/CONTACT #: [facility] PT EDon 10-28-2018 PT ED HNO ID: [id number] thor: JOYCE Douglas Rnervice: NursingAuthor Type: Registered NurseType: Patient EducationFiled: 10/28/2018 3:02 PMNote Text:2POST OP LEARNING RESPONSEINSTRUCTION PROVIDED TO: Patient and SpouseMETHOD OF INSTRUCTION: Verbal instructionPATIENT / FAMILY RESPONSE: Information received as demonstrated byinterest and questionsFOLLOW-UP PLAN: Patient instructed to call with any further issuesSUPPLEMENTAL MATERIAL: Post op discharge instructionsREFERRAL (RECOMMENDATION): NoneElectronically Signed By: Margret Hart RN In Department[facility]{Select a [facility] PT ED HNO ID: [id number] thor: JOYCE May Rnervice: NursingAuthor Type: Registered [...] Signed By: Dionicio Christina RN In Department: [facility] NURSING PROGon 10-14-2018 Protein mass conc HNO ID: [id number] thor: JOYCE Segura Rnervice: NursingAuthor Type: Registered [...] Considerations:N/AChart Check:Kelly Richmond RNNovember 2017 3:02 PM [facility] HOSPon 10-03-2018 HOSP Patient:Crow Bryant MMRN: Height:4' [...] 4.5 mmol/L 10/07/2018 5.1 3.7Progress Notes ([facility]):Monica Caraballo LPN 10/25/2018 11:02 AM SignedURINALYSIS [...] ]GLUCOSE: NEGATIVE, [low- negative, high- 2000]Lot #: [id number] Date: 04/21/2019 Quality check: Maurilio Caraballo LPN [...] 08/11/13 Feet surgery (Dr. Culp)--bunions and hammertoesFAMILY HISTORY:FAMILY HISTORYProblem Relation Age of Onset- Cancer Father LUNG WITH METASTASIS- Colon Cancer Father- Diabetes Paternal Grandmother- Breast Cancer SisterSOCIAL HISTORY:3Employer And Job Title: [employer] (retired)Marital Status: to Ab with 2 childrenTobacco [...] medication discussionSkip Grijalva, ALLS, MT, PA-CProgress Notes ([facility]):Sonam Sewell LPN 10/24/2018 1:32 PM SignedPatient presents for Prolia injection. Denies any problems at this time. Patientinstructed on any SE of medication, verbalized understanding and agreed toproceed with treatment. Tolerated injection well.Sonam Sewell LPN [facility] Vital Signs Date Time Vital Sign Value Performing Clinician Faci lity 05-18-2025 10:43-0400 Body height 149.[address] Pastor Garcia MD Work Phone: [facility] 05-18-2025 10:43-0400 Body mass index (BMI) [Ratio] 26.9 kg/m2 Dr. Pastor Garcia MD Work Phone: [facility] 05-18-2025 10:43-0400 Body weight 60.[address] Pastor Garcia MD Work Phone: [facility] 05-18-2025 10:43-0400 Diastolic blood pressure 85 mm[Hg] Dr. Pastor Garcia MD Work Phone: [facility] 05-18-2025 10:43-0400 Heart rate 74 /min Dr. Pastor Garcia MD Work Phone: [facility] 05-18-2025 10:43-0400 SaO2% (BldA) [Mass fraction] 99 % Dr. Pastor Garcia MD Work Phone: [facility] 05-18-2025 10:43-0400 Systolic blood pressure 139 mm[Hg] Dr. Pastor Garcia MD Work Phone: [facility] 10-27-2024 09:36-0500 Body mass index (BMI) [Ratio] 25.87 kg/m2 Edna Podlogar AUTOMOTIVE STARTER REPAIRER.MEETING MANAGER Work Phone: [facility] 10-27-2024 09:36-0500 Body weight 58.1 kg Edna Podlogar AUTOMOTIVE STARTER REPAIRER.MEETING MANAGER Work Phone: [facility] 10-27-2024 09:36-0500 Diastolic blood pressure 82 mm[Hg] Edna Podlogar AUTOMOTIVE STARTER REPAIRER.MEETING MANAGER Work Phone: [facility] 10-27-2024 09:36-0500 Heart rate 87 /min Edna Podlogar AUTOMOTIVE STARTER REPAIRER.MEETING MANAGER Work Phone: [facility] 10-27-2024 09:36-0500 Respiratory rate 18 /min Edna Podlogar AUTOMOTIVE STARTER REPAIRER.MEETING MANAGER Work Phone: [facility] 10-27-2024 09:36-0500 SaO2% (BldA) [Mass fraction] 97 % Podlogar AUTOMOTIVE STARTER REPAIRER.MEETING MANAGER Work Phone: [facility] 10-27-2024 09:36-0500 Systolic blood pressure 134 mm[Hg] Podlogar AUTOMOTIVE STARTER REPAIRER.MEETING MANAGER Work Phone: [facility] 09-25-2024 09:54-0500 Body mass index (BMI) [Ratio] 26.86 kg/m2 AUTOMOTIVE STARTER REPAIRER.MEETING MANAGER Work Phone: [facility] 09-25-2024 09:54-0500 Body weight 60.33 kg AUTOMOTIVE STARTER REPAIRER.MEETING MANAGER Work Phone: [facility] 09-25-2024 09:54-0500 Diastolic blood pressure 78 mm[Hg] AUTOMOTIVE STARTER REPAIRER.MEETING MANAGER Work Phone: [facility] 09-25-2024 09:54-0500 Heart rate 90 /min Adeline Older AUTOMOTIVE STARTER REPAIRER.MEETING MANAGER Work Phone: [facility] 09-25-2024 09:54-0500 Respiratory rate 16 /min Adeline Butler AUTOMOTIVE STARTER REPAIRER.MEETING MANAGER Work Phone: [facility] 09-25-2024 09:54-0500 Systolic blood pressure 130 mm[Hg] Adeline Butler AUTOMOTIVE STARTER REPAIRER.MEETING MANAGER Work Phone: [facility] 09-22-2024 10:00-0400 Body mass index (BMI) [Ratio] 26.66 kg/m2 Elan Garcia MD Work Phone: [facility] 09-22-2024 10:00-0400 Body weight 59.88 kg Elan Garcia MD Work Phone: [facility] 09-22-2024 10:00-0400 Diastolic blood pressure 70 mm[Hg] Elan Garcia MD Work Phone: [facility] 09-22-2024 10:00-0400 Heart rate 87 /min Elan Garcia MD Work Phone: [facility] 09-22-2024 10:00-0400 Respiratory rate 16 /min Elan Garcia MD Work Phone: [facility] 09-22-2024 10:00-0400 SaO2% (BldA) [Mass fraction] 99 % Elan Garcia MD Work Phone: [facility] 09-22-2024 10:00-0400 Systolic blood pressure 126 mm[Hg] Elan Garcia MD Work Phone: [facility] 07-31-2024 14:06-0400 Body mass index (BMI) [Ratio] 26.85 kg/m2 Edna Loco AUTOMOTIVE STARTER REPAIRER.MEETING MANAGER Work Phone: [facility] 07-31-2024 14:06-0400 Body weight 60.3 kg Edna Loco AUTOMOTIVE STARTER REPAIRER.MEETING MANAGER Work Phone: [facility] 07-31-2024 14:06-0400 Diastolic blood pressure 84 mm[Hg] Edna Goyallogjose angel AUTOMOTIVE STARTER REPAIRER.MEETING MANAGER Work Phone: [facility] 07-31-2024 14:06-0400 Heart rate 83 /min Edna Podlogar AUTOMOTIVE STARTER REPAIRER.MEETING MANAGER Work Phone: [facility] 07-31-2024 14:06-0400 Respiratory rate 18 /min Edna Podlogar AUTOMOTIVE STARTER REPAIRER.MEETING MANAGER Work Phone: [facility] 07-31-2024 14:06-0400 SaO2% (BldA) [Mass fraction] 98 % Edna Podlogar AUTOMOTIVE STARTER REPAIRER.MEETING MANAGER Work Phone: [facility] 07-31-2024 14:06-0400 Systolic blood pressure 136 mm[Hg] Edna Podlogar AUTOMOTIVE STARTER REPAIRER.MEETING MANAGER Work Phone: [facility] 06-22-2024 09:56-0400 Body mass index (BMI) [Ratio] 26.54 kg/m2 Elan Garcia MD Work Phone: [facility] 06-22-2024 09:56-0400 Body weight 59.6 kg Elan Garcia MD Work Phone: [facility] 06-22-2024 09:56-0400 Diastolic blood pressure 62 mm[Hg] Elan Garcia MD Work Phone: [facility] 06-22-2024 09:56-0400 Heart rate 78 /min Elan Garcia MD Work Phone: [facility] 06-22-2024 09:56-0400 Respiratory rate 16 /min Elan Garcia MD Work Phone: [facility] 06-22-2024 09:56-0400 SaO2% (BldA) [Mass fraction] 97 % Elan Garcia MD Work Phone: [facility] 06-22-2024 09:56-0400 Systolic blood pressure 108 mm[Hg] Elan Garcia MD Work Phone: [facility] 06-01-2024 09:00-0400 Diastolic blood pressure 78 mm[Hg] Jg Howard PT, DPT [facility] 06-01-2024 09:00-0400 Heart rate 70 /min Jg Howard PT, DPT [facility] 06-01-2024 09:00-0400 SaO2% (BldA) [Mass fraction] 100 % Jg Howard PT, DPT [facility] 06-01-2024 09:00-0400 Systolic blood pressure 122 mm[Hg] Jg Howard PT, DPT [facility] 05-13-2024 08:17-0400 Body mass index (BMI) [Ratio] 26.7 kg/m2 Elan Garcia MD Work Phone: [facility] 05-13-2024 08:17-0400 Body temperature 98.4 [degF] Elan Garcia MD Work Phone: [facility] 05-13-2024 08:17-0400 Body weight 59.97 kg Elan Garcia MD Work Phone: [facility] 05-13-2024 08:17-0400 Diastolic blood pressure 76 mm[Hg] Elan Garcia MD Work Phone: [facility] 05-13-2024 08:17-0400 Heart rate 80 /min Elan Garcia MD Work Phone: [facility] 05-13-2024 08:17-0400 Respiratory rate 16 /min Elan Garcia MD Work Phone: [facility] 05-13-2024 08:17-0400 SaO2% (BldA) [Mass fraction] 97 % Elan Garcia MD Work Phone: [facility] 05-13-2024 08:17-0400 Systolic blood pressure 120 mm[Hg] Elan Garcia MD Work Phone: [facility] 03-22-2024 10:09-0400 Body mass index (BMI) [Ratio] 26.58 kg/m2 Edna Loco AUTOMOTIVE STARTER REPAIRER.MEETING MANAGER Work Phone: [facility] 03-22-2024 10:09-0400 Body weight 59.69 kg Edna Podlogar AUTOMOTIVE STARTER REPAIRER.MEETING MANAGER Work Phone: [facility] 03-22-2024 10:09-0400 Diastolic blood pressure 74 mm[Hg] Edna Podlogar AUTOMOTIVE STARTER REPAIRER.MEETING MANAGER Work Phone: [facility] 03-22-2024 10:09-0400 Heart rate 76 /min Edna Podlogar AUTOMOTIVE STARTER REPAIRER.MEETING MANAGER Work Phone: [facility] 03-22-2024 10:09-0400 Respiratory rate 18 /min Edna Podlogar AUTOMOTIVE STARTER REPAIRER.MEETING MANAGER Work Phone: [facility] 03-22-2024 10:09-0400 SaO2% (BldA) [Mass fraction] 97 % Edna Podlogar AUTOMOTIVE STARTER REPAIRER.MEETING MANAGER Work Phone: [facility] 03-22-2024 10:09-0400 Systolic blood pressure 126 mm[Hg] Edna Podlogar AUTOMOTIVE STARTER REPAIRER.MEETING MANAGER Work Phone: [facility] 02-28-2024 11:14-0400 Body temperature 98.4 [degF] Edna Podlogar AUTOMOTIVE STARTER REPAIRER.MEETING MANAGER Work Phone: [facility] 02-28-2024 11:14-0400 Body weight 59.42 kg Edna Podlogar AUTOMOTIVE STARTER REPAIRER.MEETING MANAGER Work Phone: [facility] 02-28-2024 11:14-0400 Diastolic blood pressure 80 mm[Hg] Edna Podlogar AUTOMOTIVE STARTER REPAIRER.MEETING MANAGER Work Phone: [facility] 02-28-2024 11:14-0400 Respiratory rate 16 /min Edna Podlogar AUTOMOTIVE STARTER REPAIRER.MEETING MANAGER Work Phone: [facility] 02-28-2024 11:14-0400 SaO2% (BldA) [Mass fraction] 99 % Edna Podlogar AUTOMOTIVE STARTER REPAIRER.MEETING MANAGER Work Phone: [facility] 02-28-2024 11:14-0400 Systolic blood pressure 122 mm[Hg] Edna Podlogar AUTOMOTIVE STARTER REPAIRER.MEETING MANAGER Work Phone: [facility] 02-02-2024 10:13-0400 Body temperature 98.4 [degF] Edna Podlogar AUTOMOTIVE STARTER REPAIRER.MEETING MANAGER Work Phone: [facility] 02-02-2024 10:130400 Body weight 60.78 kg Edna Podlogar AUTOMOTIVE STARTER REPAIRER.MEETING MANAGER Work Phone: [facility] 02-02-2024 10:13-0400 Diastolic blood pressure 84 mm[Hg] Edna Podlogar AUTOMOTIVE STARTER REPAIRER.MEETING MANAGER Work Phone: [facility] 02-02-2024 10:13-0400 Heart rate 71 /min Edna Podlogar AUTOMOTIVE STARTER REPAIRER.MEETING MANAGER Work Phone: [facility] 02-02-2024 10:13-0400 Respiratory rate 16 /min Edna Podlogar AUTOMOTIVE STARTER REPAIRER.MEETING MANAGER Work Phone: [facility] 02-02-2024 10:13-0400 SaO2% (BldA) [Mass fraction] 98 % Edna Podlogar AUTOMOTIVE STARTER REPAIRER.MEETING MANAGER Work Phone: [facility] 02-02-2024 10:13-0400 Systolic blood pressure 126 mm[Hg] Edna Podlogar AUTOMOTIVE STARTER REPAIRER.MEETING MANAGER Work Phone: [facility] 01-29-2024 10:05-0500 Body height 149.9 cm Elan Garcia MD Work Phone: [facility] 01-29-2024 10:05-0500 Body weight 60.33 kg Elan Garcia MD Work Phone: [facility] 01-29-2024 10:05-0500 Diastolic blood pressure 64 mm[Hg] Elan Garcia MD Work Phone: [facility] 01-29-2024 10:05-0500 Heart rate 75 /min Elan Garcia MD Work Phone: [facility] 01-29-2024 10:05-0500 Respiratory rate 12 /min Elan Garcia MD Work Phone: [facility] 01-29-2024 10:05-0500 SaO2% (BldA) [Mass fraction] 99 % Elan Garcia MD Work Phone: [facility] 01-29-2024 10:05-0500 Systolic blood pressure 128 mm[Hg] Elan Garcia MD Work Phone: [facility] 01-23-2024 02:22-0500 Body temperature 98.1 [degF] Dr. Pastor Garcia Work Phone: [facility] 01-23-2024 02:22-0500 Diastolic blood pressure 79 mm[Hg] Dr. Pastor Garcia Work Phone: [facility] 01-23-2024 02:22-0500 Heart rate 81 /min Dr. Pastor Garcia Work Phone: [facility] 01-23-2024 02:22-0500 Respiratory rate 18 /min Dr. Pastor Garcia Work Phone: [facility] 01-23-2024 02:22-0500 SaO2% (BldA) [Mass fraction] 99 % Dr. Pastor Garcia Work Phone: [facility] 01-23-2024 02:22-0500 Systolic blood pressure 166 mm[Hg] Dr. Pastor Garcia Work Phone: [facility] 01-22-2024 22:47-0500 Body height 149.[address] Pastor Garcia Work Phone: [facility] 01-22-2024 22:47-0500 Body mass index (BMI) [Ratio] 27 kg/m2 Dr. Pastor Garcia Work Phone: [facility] 01-22-2024 22:47-0500 Body weight 60.[address] Pastor Garcia Work Phone: [facility] 01-05-2024 13:54-0500 Body height 149.9 cm Elan Garcia MD Work Phone: [facility] 01-05-2024 13:54-0500 Body weight 60.33 kg Elan Garcia MD Work Phone: [facility] 01-05-2024 13:54-0500 Diastolic blood pressure 74 mm[Hg] Elan Garcia MD Work Phone: [facility] 01-05-2024 13:54-0500 Heart rate 80 /min Elan Garcia MD Work Phone: [facility] 01-05-2024 13:54-0500 Respiratory rate 16 /min Elan Garcia MD Work Phone: [facility] 01-05-2024 13:54-0500 Systolic blood pressure 128 mm[Hg] Elan Garcia MD Work Phone: [facility] 11-19-2023 10:32-0500 Body height 149.22 cm [facility] 11-19-2023 10:32-0500 Body mass index (BMI) [Ratio] 26.9 kg/m2 [facility] 11-19-2023 10:32-0500 Body temperature 98 [degF] [facility] 11-19-2023 10:32-0500 Body weight 59.87 kg [facility] 11-19-2023 10:32-0500 Diastolic blood pressure 80 mm[Hg] [facility] 11-19-2023 10:32-0500 Heart rate 80 /min [facility] 11-19-2023 10:32-0500 Respiratory rate 16 /min [facility] 11-19-2023 10:32-0500 SaO2% (BldA) [Mass fraction] 99 % [facility] 11-19-2023 10:32-0500 Systolic blood pressure 151 mm[Hg] [facility] 08-03-2023 09:21-0400 Body temperature 98.1 [degF] Edna Loco APRN.MEETING MANAGER Work Phone: [facility] 08-03-2023 09:21-0400 Body weight 61.05 kg Edna Loco APRN.MEETING MANAGER Work Phone: [facility] 08-03-2023 09:21-0400 Diastolic blood pressure 76 mm[Hg] Edna Podlogar AUTOMOTIVE STARTER REPAIRER.MEETING MANAGER Work Phone: [facility] 08-03-2023 09:21-0400 Heart rate 89 /min Edna Podlogar AUTOMOTIVE STARTER REPAIRER.MEETING MANAGER Work Phone: [facility] 08-03-2023 09:21-0400 Respiratory rate 16 /min Edna Podlogar AUTOMOTIVE STARTER REPAIRER.MEETING MANAGER Work Phone: [facility] 08-03-2023 09:21-0400 SaO2% (BldA) [Mass fraction] 95 % Edna Podlogar AUTOMOTIVE STARTER REPAIRER.MEETING MANAGER Work Phone: [facility] 08-03-2023 09:21-0400 Systolic blood pressure 128 mm[Hg] Edna Podlogar AUTOMOTIVE STARTER REPAIRER.MEETING MANAGER Work Phone: [facility] 05-21-2023 10:26-0400 Body height 149.[address] Pastor Garcia Work Phone: [facility] 05-21-2023 10:26-0400 Body mass index (BMI) [Ratio] 26.2 kg/m2 Dr. Pastor Garcia Work Phone: [facility] 05-21-2023 10:26-0400 Body temperature 96.6 [degF] Dr. Pastor Garcia Work Phone: [facility] 05-21-2023 10:26-0400 Body weight 58.[address] Pastor Garcia Work Phone: [facility] 05-21-2023 10:26-0400 Diastolic blood pressure 72 mm[Hg] Dr. Pastor Garcia Work Phone: [facility] 05-21-2023 10:26-0400 Heart rate 79 /min Dr. Pastor Garcia Work Phone: [facility] 05-21-2023 10:26-0400 Respiratory rate 16 /min Dr. Pastor Garcia Work Phone: [facility] 05-21-2023 10:26-0400 SaO2% (BldA) [Mass fraction] 99 % Dr. Pastor Garcia Work Phone: [facility] 05-21-2023 10:26-0400 Systolic blood pressure 131 mm[Hg] Dr. Pastor Garcia Work Phone: 6(469)967-632781 [place] [address] 05-20-2023 15:34-0400 Body mass index (BMI) [Ratio] 27.1 kg/m2 Dr. Pastor Garcia Work Phone: 8(257)165-159781 [place] [address] 05-20-2023 15:34-0400 Body temperature 98.2 [degF] Dr. Pastor Garcia Work Phone: 7(758)497-119681 [place] [address] 05-20-2023 15:34-0400 Body weight 60.[address] Pastor Garcia Work Phone: 8(109)041-219881 [place] [address] 05-20-2023 15:34-0400 Diastolic blood pressure 80 mm[Hg] Dr. Pastor Garcia Work Phone: 9(935)249-748290 [place] [address] 05-20-2023 15:34-0400 Heart rate 90 /min Dr. Pastor Garcia Work Phone: 4(473)735-896981 [place] [address] 05-20-2023 15:34-0400 Respiratory rate 16 /min Dr. Pastor Garcia Work Phone: 5(489)929-055081 [place] [address] 05-20-2023 15:34-0400 SaO2% (BldA) [Mass fraction] 97 % Dr. Pastor Garcia Work Phone: 7(690)544-738990 [place] [address] 05-20-2023 15:34-0400 Systolic blood pressure 156 mm[Hg] Dr. Pastor Garcia Work Phone: [facility] 05-07-2023 13:56-0400 Body height 149.3 cm Brian Ashton MD Work Phone: [facility] 05-07-2023 13:56-0400 Body temperature 98.1 [degF] Brian Ashton MD Work Phone: [facility] 05-07-2023 13:56-0400 Body weight 59.65 kg Brian Ashton MD Work Phone: [facility] 05-07-2023 13:56-0400 Diastolic blood pressure 82 mm[Hg] Brian Ashton MD Work Phone: [facility] 05-07-2023 13:56-0400 Heart rate 69 /min Brian Ashton MD Work Phone: [facility] 05-07-2023 13:56-0400 Respiratory rate 18 /min Brian Ashton MD Work Phone: [facility] 05-07-2023 13:56-0400 SaO2% (BldA) [Mass fraction] 100 % Brian Ashton MD Work Phone: [facility] 05-07-2023 13:56-0400 Systolic blood pressure 157 mm[Hg] Brian Ashton MD Work Phone: [facility] 04-02-2023 15:11-0400 Body mass index (BMI) [Ratio] 25.7 kg/m2 Dr. Pastor Garcia Work Phone: [facility] 04-02-2023 14:22-0400 Body temperature 98.6 [degF] Dr. Pastor Garcia Work Phone: [facility] 04-02-2023 14:22-0400 Diastolic blood pressure 75 mm[Hg] Dr. Pastor Garcia Work Phone: [facility] 04-02-2023 14:22-0400 Heart rate 65 /min Dr. Pastor Garcia Work Phone: [facility] 04-02-2023 14:22-0400 Respiratory rate 16 /min Dr. Pastor Garcia Work Phone: [facility] 04-02-2023 14:22-0400 SaO2% (BldA) [Mass fraction] 99 % Dr. Pastor Garcia Work Phone: 2(084)987-659081 [place] [address] 04-02-2023 14:22-0400 Systolic blood pressure 120 mm[Hg] Dr. Pastor Garcia Work Phone: 4(373)402-206781 [place] [address] 04-01-2023 22:20-0400 Body height 149.[address] Pastor Garcia Work Phone: 6(778)374-004281 [place] [address] 04-01-2023 22:20-0400 Body weight 57.[address] Pastor Garcia Work Phone: 5(191)340-852581 [place] [address] 04-01-2023 21:06-0400 Body temperature 98 [degF] Dr. Pastor Garcia Work Phone: 6(399)111-586081 [place] [address] 04-01-2023 21:06-0400 Diastolic blood pressure 77 mm[Hg] Dr. Pastor Garcia Work Phone: 8(647)234-715981 [place] [address] 04-01-2023 21:06-0400 Heart rate 81 /min Dr. Pastor Garcia Work Phone: 1(039)764-943881 [place] [address] 04-01-2023 21:06-0400 Respiratory rate 16 /min Dr. Pastor Garcia Work Phone: 2(188)060-378881 [place] [address] 04-01-2023 21:06-0400 SaO2% (BldA) [Mass fraction] 97 % Dr. Pastor Garcia Work Phone: 2(197)543-360281 [place] [address] 04-01-2023 21:06-0400 Systolic blood pressure 163 mm[Hg] Dr. Pastor Garcia Work Phone: 6(426)403-735681 [place] [address] 04-01-2023 17:51-0400 Body height 150.[address] Pastor Garcia Work Phone: 3(274)790-163081 [place] [address] 04-01-2023 17:51-0400 Body mass index (BMI) [Ratio] 26.5 kg/m2 Dr. Pastor Garcia Work Phone: 2(545)031-363781 [place] [address] 04-01-2023 17:51-0400 Body weight 59.[address] Pastor Garcia Work Phone: 2(794)356-333381 [place] [address] 03-08-2023 10:23-0400 Body weight 58.24 kg Edna Podlogar AUTOMOTIVE STARTER REPAIRER.MEETING MANAGER Work Phone: [facility] 03-08-2023 10:23-0400 Diastolic blood pressure 76 mm[Hg] Edna Podlogar AUTOMOTIVE STARTER REPAIRER.MEETING MANAGER Work Phone: [facility] 03-08-2023 10:23-0400 Heart rate 82 /min Edna Podlogar AUTOMOTIVE STARTER REPAIRER.MEETING MANAGER Work Phone: [facility] 03-08-2023 10:23-0400 Respiratory rate 18 /min Edna Podlogar AUTOMOTIVE STARTER REPAIRER.MEETING MANAGER Work Phone: [facility] 03-08-2023 10:23-0400 SaO2% (BldA) [Mass fraction] 98 % Edna Podlogar AUTOMOTIVE STARTER REPAIRER.MEETING MANAGER Work Phone: [facility] 03-08-2023 10:23-0400 Systolic blood pressure 102 mm[Hg] Edna Podlogar AUTOMOTIVE STARTER REPAIRER.MEETING MANAGER Work Phone: [facility] 11-10-2022 13:27-0500 Body height 149.86 cm [facility] Work Phone: 11-10-2022 13:27-0500 Body mass index (BMI) [Ratio] 26.2 kg/m2 [facility] Work Phone: 11-10-2022 13:27-0500 Body temperature 97.2 [degF] [facility] Work Phone: 11-10-2022 13:27-0500 Body weight 58.96 kg [facility] Work Phone: 11-10-2022 13:27-0500 Diastolic blood pressure 71 mm[Hg] [facility] Work Phone: 11-10-2022 13:27-0500 Heart rate 86 /min [facility] Work Phone: 11-10-2022 13:27-0500 Respiratory rate 14 /min [facility] Work Phone: 11-10-2022 13:27-0500 Systolic blood pressure 129 mm[Hg] [facility] Work Phone: 10-21-2022 09:09-0500 Body temperature 98.49 [degF] Edna Podlogar AUTOMOTIVE STARTER REPAIRER.MEETING MANAGER Work Phone: [facility] 10-21-2022 09:09-0500 Body weight 59.78 kg Edna Podlogar AUTOMOTIVE STARTER REPAIRER.MEETING MANAGER Work Phone: [facility] 10-21-2022 09:09-0500 Diastolic blood pressure 78 mm[Hg] Edna Podlogar AUTOMOTIVE STARTER REPAIRER.MEETING MANAGER Work Phone: [facility] 10-21-2022 09:09-0500 Heart rate 88 /min Edna Podlogar AUTOMOTIVE STARTER REPAIRER.MEETING MANAGER Work Phone: [facility] 10-21-2022 09:09-0500 Respiratory rate 16 /min Edna Podlogar AUTOMOTIVE STARTER REPAIRER.MEETING MANAGER Work Phone: [facility] 10-21-2022 09:09-0500 SaO2% (BldA) [Mass fraction] 99 % Edna Podlogar AUTOMOTIVE STARTER REPAIRER.MEETING MANAGER Work Phone: [facility] 10-21-2022 09:09-0500 Systolic blood pressure 132 mm[Hg] Edna Podlogar AUTOMOTIVE STARTER REPAIRER.MEETING MANAGER Work Phone: [facility] 07-17-2022 08:03-0400 Body weight 60.51 kg Elan Garcia MD Work Phone: [facility] 07-17-2022 08:03-0400 Diastolic blood pressure 66 mm[Hg] Elan Garcia MD Work Phone: [facility] 07-17-2022 08:03-0400 Heart rate 82 /min Elan Garcia MD Work Phone: [facility] 07-17-2022 08:03-0400 Respiratory rate 16 /min Elan Garcia MD Work Phone: [facility] 07-17-2022 08:03-0400 SaO2% (BldA) [Mass fraction] 99 % Elan Garcia MD Work Phone: [facility] 07-17-2022 08:03-0400 Systolic blood pressure 114 mm[Hg] Elan Garcia MD Work Phone: [facility] 06-22-2022 11:30-0400 Body temperature 97.5 [degF] Edna Podlogar AUTOMOTIVE STARTER REPAIRER.MEETING MANAGER Work Phone: [facility] 06-22-2022 11:30-0400 Body weight 60.24 kg Edna Podlogar AUTOMOTIVE STARTER REPAIRER.MEETING MANAGER Work Phone: [facility] 06-22-2022 11:30-0400 Diastolic blood pressure 74 mm[Hg] Edna Podlogar AUTOMOTIVE STARTER REPAIRER.MEETING MANAGER Work Phone: [facility] 06-22-2022 11:30-0400 Heart rate 71 /min Edna Podlogar AUTOMOTIVE STARTER REPAIRER.MEETING MANAGER Work Phone: [facility] 06-22-2022 11:30-0400 Respiratory rate 18 /min Edna Podlogar AUTOMOTIVE STARTER REPAIRER.MEETING MANAGER Work Phone: [facility] 06-22-2022 11:30-0400 SaO2% (BldA) [Mass fraction] 98 % Edna Podlogar AUTOMOTIVE STARTER REPAIRER.MEETING MANAGER Work Phone: [facility] 06-22-2022 11:30-0400 Systolic blood pressure 122 mm[Hg] Edna Podlogar AUTOMOTIVE STARTER REPAIRER.MEETING MANAGER Work Phone: [facility] 06-15-2022 13:39-0400 Body height 147.3 cm Mitul Sánchez DO Work Phone: [facility] 06-15-2022 13:39-0400 Body temperature 98.49 [degF] Mitul Newelli DO Work Phone: [facility] 06-15-2022 13:39-0400 Body weight 60.33 kg Mitul Sánchez DO Work Phone: [facility] 06-15-2022 13:39-0400 Diastolic blood pressure 77 mm[Hg] Mitul Newelli DO Work Phone: [facility] 06-15-2022 13:39-0400 Heart rate 85 /min Mitul Newelli DO Work Phone: [facility] 06-15-2022 13:39-0400 Systolic blood pressure 131 mm[Hg] Mitul Newelli DO Work Phone: [facility] 06-03-2022 09:27-0400 Body temperature 97.81 [degF] Elan Garcia MD Work Phone: [facility] 06-03-2022 09:27-0400 Body weight 59.42 kg Elan Garcia MD Work Phone: [facility] 06-03-2022 09:27-0400 Diastolic blood pressure 76 mm[Hg] Elan Garcia MD Work Phone: [facility] 06-03-2022 09:27-0400 Heart rate 64 /min Elan Garcia MD Work Phone: [facility] 06-03-2022 09:27-0400 Respiratory rate 16 /min Elan Garcia MD Work Phone: [facility] 06-03-2022 09:27-0400 Systolic blood pressure 112 mm[Hg] Elan Garcia MD Work Phone: [facility] 05-12-2022 13:14-0400 Body height 149.[address] Kasey Bashir Work Phone: [facility] Work Phone: 05-12-2022 13:14-0400 Body mass index (BMI) [Ratio] 26.6 kg/m2 Dr. Kasey Bashir Work Phone: [facility] Work Phone: 05-12-2022 13:14-0400 Body temperature 96.7 [degF] Dr. Kasey Bashir Work Phone: [facility] Work Phone: 05-12-2022 13:14-0400 Body weight 59.[address] Kasey Bashir Work Phone: [facility] Work Phone: 05-12-2022 13:14-0400 Diastolic blood pressure 70 mm[Hg] Dr. Kasey Bashir Work Phone: [facility] Work Phone: 05-12-2022 13:14-0400 Heart rate 83 /min Dr. Kasey Bashir Work Phone: [facility] Work Phone: 05-12-2022 13:14-0400 Respiratory rate 12 /min Dr. Kasey Bashir Work Phone: [facility] Work Phone: 05-12-2022 13:14-0400 SaO2% (BldA) [Mass fraction] 98 % Dr. Kasey Bashir Work Phone: [facility] Work Phone: 05-12-2022 13:14-0400 Systolic blood pressure 124 mm[Hg] Dr. Kasey Bashir Work Phone: [facility] Work Phone: 05-11-2022 14:11-0400 Body temperature 98.01 [degF] Elan Garcia MD Work Phone: [facility] 05-11-2022 14:11-0400 Body weight 59.97 kg Elan Garcia MD Work Phone: [facility] 05-11-2022 14:11-0400 Diastolic blood pressure 80 mm[Hg] Elan Garcia MD Work Phone: [facility] 05-11-2022 14:11-0400 Heart rate 76 /min Elan Garcia MD Work Phone: [facility] 05-11-2022 14:11-0400 Respiratory rate 16 /min Elan Garcia MD Work Phone: [facility] 05-11-2022 14:11-0400 SaO2% (BldA) [Mass fraction] 99 % Elan Garcia MD Work Phone: [facility] 05-11-2022 14:11-0400 Systolic blood pressure 122 mm[Hg] Elan Garcia MD Work Phone: [facility] 04-30-2022 09:33-0400 Body temperature 97.4 [degF] Dr. Kasey Bashir Work Phone: [facility] Work Phone: 04-30-2022 09:33-0400 Diastolic blood pressure 76 mm[Hg] Dr. Kasey Bashir Work Phone: [facility] Work Phone: 04-30-2022 09:33-0400 Heart rate 77 /min Dr. Kasey Bashir Work Phone: [facility] Work Phone: 04-30-2022 09:33-0400 Respiratory rate 14 /min Dr. Kasey Bashir Work Phone: [facility] Work Phone: 04-30-2022 09:33-0400 SaO2% (BldA) [Mass fraction] 98 % Dr. Kasey Bashir Work Phone: [facility] Work Phone: 04-30-2022 09:33-0400 Systolic blood pressure 128 mm[Hg] Dr. Kasey Bashir Work Phone: [facility] Work Phone: 04-13-2022 13:44-0400 Body temperature 98.01 [degF] Edna Loco APRN.MEETING MANAGER Work Phone: [facility] 04-13-2022 13:44-0400 Body weight 60.96 kg Edna Loco APRN.MEETING MANAGER Work Phone: [facility] 04-13-2022 13:44-0400 Diastolic blood pressure 62 mm[Hg] Edna Podlogar AUTOMOTIVE STARTER REPAIRER.MEETING MANAGER Work Phone: [facility] 04-13-2022 13:44-0400 Heart rate 85 /min Edna Podlogar AUTOMOTIVE STARTER REPAIRER.MEETING MANAGER Work Phone: [facility] 04-13-2022 13:44-0400 Respiratory rate 18 /min Edna Podlogar AUTOMOTIVE STARTER REPAIRER.MEETING MANAGER Work Phone: [facility] 04-13-2022 13:44-0400 SaO2% (BldA) [Mass fraction] 100 % Edna Podlogar AUTOMOTIVE STARTER REPAIRER.MEETING MANAGER Work Phone: [facility] 04-13-2022 13:44-0400 Systolic blood pressure 108 mm[Hg] Edna Podlogar AUTOMOTIVE STARTER REPAIRER.MEETING MANAGER Work Phone: [facility] 03-20-2022 14:09-0400 Body weight 61.33 kg Elan Garcia MD Work Phone: [facility] 03-20-2022 14:09-0400 Diastolic blood pressure 68 mm[Hg] Elan Garcia MD Work Phone: [facility] 03-20-2022 14:09-0400 Heart rate 85 /min Elan Garcia MD Work Phone: [facility] 03-20-2022 14:09-0400 Respiratory rate 16 /min Elan Garcia MD Work Phone: [facility] 03-20-2022 14:09-0400 SaO2% (BldA) [Mass fraction] 97 % Elan Garcia MD Work Phone: [facility] 03-20-2022 14:09-0400 Systolic blood pressure 128 mm[Hg] Elan Garcia MD Work Phone: [facility] 04-24-2021 09:30-0400 Body mass index (BMI) [Ratio] 25.6 kg/m2 Dr. Kasey Bashir Work Phone: [facility] Work Phone: Encounters Encounter Date Encounter Type Care Provider Facility Start: 06-02-2025 ambulatory [facility] Facility:[facility] Start: 05-21-2025 End: 05-21-[address] Pastor Garcia MD Work Phone: -Radiology [facility] Start: 05-21-2025 End: 05-21-[address] Yon Salas MD -Radiology [facility] Work Phone: Start: 05-21-2025 End: 05-21-2025 ambulatory [facility] Facility:[facility] Start: 05-18-2025 End: 05-18-[address] Lei Sung MD [facility] Work Phone: Start: 05-18-2025 End: 05-18-[address] Pastor Garcia MD Work Phone: [facility] Start: 01-11-2025 End: 01-11-2025 ambulatory [facility] Facility:[facility] Start: 12-12-2024 End: 12-13-2024 Telephone encounter Elan Garcia MD Work Phone: [facility] Comment on above: Patient Question Start: 11-20-2024 End: 11-20-2024 Telephone encounter Elan Garcia MD Work Phone: [facility] Comment on above: Medication Question Start: 11-17-2024 End: 11-17-2024 ambulatory Pastor Garcia Facility:[facility] Start: 11-13-2024 End: 11-13-2024 ambulatory Connor Louieo [facility] Start: 11-13-2024 End: 11-13-2024 Patient encounter procedure Connor L Plaso [facility] Comment on above: Population Health Na vigation Outreach ([employer]) Start: 10-27-2024 End: 10-27-2024 Patient encounter procedure Edna Loco APRN.CNP Work Phone: [facility] Comment on above: Essential hypertensi on (Primary Dx); Stage 3a chronic kidney disease (HCC); Gastroesophageal reflux disease without esophagitis; Acquired hypothyroidism; Hypopituitarism (HCC) Start: 10-27-2024 End: 10-27-2024 ambulatory ELAN GARCIA Facility:[facility] Start: 09-26-2024 End: 09-27-2024 Telephone encounter Adeline Butler APRN.CNP Work Phone: [facility] Comment on above: Results Start: 09-25-2024 End: 09-25-2024 Patient encounter procedure Adeline Butler APRN.CNP Work Phone: [facility] Comment on above: Acute left-sided low back pain with left-sided sciatica (Primary Dx); Lower abdominal tenderness Start: 09-25-2024 End: 09-25-2024 ambulatory ELAN GARCIA Facility:[facility] Start: 09-22-2024 End: 09-22-2024 Patient encounter procedure Elan Garcia MD Work Phone: [facility] Comment on above: Acute bilateral low back pain with right-sided sciatica (Primary Dx); Essential hypertension; Mixed hyperlipidemia; Stage 3a chronic kidney disease (HCC) Start: 09-22-2024 End: 09-22-2024 ambulatory [facility] GARCIA [facility] [facility] Start: 08-23-2024 End: 08-23-2024 Refill Elan Garcia MD Work Phone: [facility] [place] Comment on above: Refill Request Start: 08-03-2024 End: 08-03-2024 Telephone encounter Sally Singh APRN.CNP Work Phone: [facility] [place] Comment on above: Results Start: 08-03-2024 End: 08-03-2024 ambulatory ELAN GARCIA Facility:[facility] Start: 08-03-2024 End: 08-03-2024 Subsequent hospital visit by physician [facility] Work Phone: Radiology Comment on above: Pain in right lower leg [M79.661] Start: 07-31-2024 End: 07-31-2024 Patient encounter procedure Edna Loco APRN.CNP Work Phone: [facility] Comment on above: Pain in right lower leg (Primary Dx) Start: 07-31-2024 End: 07-31-2024 ambulatory ELAN GARCIA Facility:[facility] Start: 06-23-2024 End: 06-23-2024 ambulatory Catherine Valles PT [place] [facility] Physical Therapy Comment on above: Fall in home, initia l encounter (Primary Dx); Closed fracture of ramus of right pubis with routine healing, subsequent encounter Start: 06-22-2024 End: 06-22-2024 ambulatory ELAN GARCIA Facility:[facility] Start: 06-22-2024 End: 06-22-2024 Patient encounter procedure Elan Garcia MD Work Phone: [facility] Comment on above: Fall in home, subseq uent encounter (Primary Dx); Closed fracture of ramus of right pubis with routine healing, subsequent encounter; Other fracture of unspecified thoracic vertebra, initial encounter for closed fracture (HCC); Stage 3a chronic kidney disease (HCC) Start: 06-13-2024 End: 06-13-2024 ambulatory Barbara Ahumada DIGITAL PROGRAM MANAGER Work Phone: [facility] Comment on above: Fall in home, initia l encounter (Primary Dx); Closed fracture of ramus of right pubis with routine healing, subsequent encounter Start: 06-02-2024 Telephone encounter Jg Pina PT, DPT [facility] Comment on above: Patient Question Start: 06-01-2024 End: 06-01-2024 ambulatory Jg Howard PT, DPT [facility] Comment on above: Fall in home, subseq uent encounter (Primary Dx); Other fracture of unspecified thoracic vertebra, initial encounter for closed fracture (HCC); Closed fracture of ramus of right pubis with routine healing, subsequent encounter Start: 05-24-2024 End: 05-24-2024 ambulatory ELAN GARCIA Facility:[facility] Start: 05-24-2024 End: 05-24-2024 Subsequent hospital visit by physician Janna Fhsulaiman Odonnell Work Phone: Radiology Comment on above: Fall in home, subseq uent encounter [W19.XXXD, Y92.009] Start: 05-13-2024 End: 05-13-2024 ambulatory ELAN GARCIA Facility:[facility] Start: 05-13-2024 End: 05-13-2024 Patient encounter procedure Elan Garcia MD Work Phone: [facility] [place] Comment on above: Fall in home, subseq uent encounter (Primary Dx); Other fracture of unspecified thoracic vertebra, initial encounter for closed fracture (HCC); Closed fracture of ramus of right pubis with routine healing, subsequent encounter Start: 04-26-2024 Refill Elan Garcia MD Work Phone: [facility] [place] Comment on above: Refill Request Start: 03-22-2024 End: 03-22-2024 ambulatory ELAN GARCIA Facility:[facility] Start: 03-22-2024 End: 03-22-2024 Patient encounter procedure Edna Loco APRN.MEETING MANAGER Work Phone: [facility] [place] Comment on above: Essential hypertensi on (Primary Dx); Disease of pituitary gland (HCC); Pituitary adenoma (HCC); Stage 3a chronic kidney disease (HCC); Acquired hypothyroidism; Mixed hyperlipidemia; Hypopituitarism (HCC); Screening for depression; Gastroesophageal reflux disease without esophagitis Start: 02-28-2024 End: 02-28-2024 ambulatory ELAN GARCIA Facility:[facility] Start: 02-28-2024 End: 02-28-2024 Patient encounter procedure Edna Loco APRN.MEETING MANAGER Work Phone: [facility] [place] Comment on above: Upper respiratory tr act infection, unspecified type (Primary Dx) Start: 02-23-2024 Refill Elan Garcia MD Work Phone: [facility] [place] Comment on above: Refill Request Start: 02-02-2024 End: 02-02-2024 Patient encounter procedure Edna Loco APRN.MEETING MANAGER Work Phone: [facility] [place] Comment on above: Daron infection (P rimary Dx) Start: 02-02-2024 End: 02-02-2024 ambulatory ELAN GARCIA Facility:[facility] Start: 01-31-2024 Telephone encounter Pastor Garcia MD Work Phone: [facility] Comment on above: rectal issue Start: 01-29-2024 End: 01-29-2024 Patient encounter procedure Elan Garcia MD Work Phone: [facility] Comment on above: Colitis (Primary Dx) ; Allergic reaction to contrast material, initial encounter; Stage 3a chronic kidney disease (HCC) Start: 01-29-2024 End: 01-29-2024 ambulatory ELAN GARCIA Facility:[facility] Start: 01-24-2024 Telephone encounter Pastor Garcia MD Work Phone: [facility] [place] Comment on above: ER F/U; Nausea Start: 01-22-2024 End: 01-23-2024 Emergency department patient [facility] Start: 01-11-2024 End: 01-11-[address] 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 (Primary Dx); Pain in zurita, right Start: 01-05-2024 End: 01-05-2024 ambulatory ELAN GARCIA Facility:[facility] Start: 01-04-2024 ambulatory Elan Garcia MD Work Phone: [facility] Comment on above: Leg Pain Start: 12-01-2023 End: 12-01-2023 Subsequent hospital visit by physician [facility] Work Phone: Radiology Comment on above: Rib pain on right si de [R07.81] Start: 11-19-2023 End: 11-19-2023 ambulatory [facility] Work Phone: Start: 11-19-2023 End: 11-19-2023 Patient encounter procedure [facility] Work Phone: Start: 10-08-2023 Telephone encounter Pastor Garcia MD Work Phone: [facility] Comment on above: medication replaceme nt request Start: 08-09-2023 Telephone encounter Edna barraza AUTOMOTIVE STARTER REPAIRER.MEETING MANAGER Work Phone: [facility] Comment on above: Results Start: 08-03-2023 End: 08-03-2023 Patient encounter procedure Edna Loco APRN.MEETING MANAGER Work Phone: [facility] Comment on above: Vaginal discharge (P rimary Dx); Vaginal itching Start: 07-21-2023 End: 07-21-[address] Pastor Garcia Work Phone: [facility] Work Phone: Start: 07-21-2023 End: 07-21-[address] Pastor Garcia Work Phone: [facility] Work Phone: Start: 05-21-2023 End: 05-21-[address] Pastor Garcia Work Phone: [facility] Work Phone: Start: 05-21-2023 End: 05-21-[address] Pastor Garcia Work Phone: [facility] Work Phone: Start: 05-20-2023 End: 05-20-[address] Pastor Garcia Work Phone: [facility] Work Phone: Start: 05-20-2023 End: 05-20-[address] Pastor Garcia Work Phone: [facility] Work Phone: Start: 05-07-2023 End: 05-07-2023 Patient encounter procedure Brian Ashton MD Work Phone: [facility] Comment on above: Pituitary adenoma (H CC) (Primary Dx) Start: 04-02-2023 Non-patient / Non-visit Dr. Camilo Garcia Work Phone: [facility] Inpatient Physicians Start: 04-02-2023 Non-patient / Non-visit Dr. Camilo Garcia Work Phone: [facility] Start: 04-01-2023 End: 04-02-2023 Evaluation and management of inpatient Dr. Pastor Garcia Work Phone: [facility] Start: 04-01-2023 End: 04-02-[address] Pastor Garcia Work Phone: [facility] Work Phone: Start: 04-01-2023 Non-patient / Non-visit Dr. Camilo Garcia Work Phone: [facility] Start: 03-16-2023 ambulatory [facility] Comment on above: Results Start: 03-16-2023 E-mail encounter fro m caregiver [facility] Start: 03-08-2023 End: 03-08-2023 Patient encounter procedure Edna Loco APRN.CNP Work Phone: [facility] Comment on above: Essential hypertensi on (Primary Dx); Hypopituitarism (HCC); Glucocorticoid deficiency (HCC); Senile osteoporosis Start: 02-24-2023 Refill Elan Garcia MD Work Phone: [facility] Comment on above: Refill Request Start: 11-10-2022 End: 11-10-2022 ambulatory [facility] Work Phone: Start: 11-10-2022 End: 11-10-2022 Patient encounter procedure [facility] Start: 10-21-2022 Telephone encounter Edna barraza APRN.MEETING MANAGER Work Phone: [facility] Comment on above: Results Start: 10-21-2022 End: 10-21-2022 Subsequent hospital visit by physician [facility] Work Phone: Radiology Comment on above: Expiratory wheezing [R06.2] Start: 10-21-2022 End: 10-21-2022 Patient encounter procedure Edna Loco APRN.MEETING MANAGER Work Phone: [facility] Comment on above: Acute cough (Primary Dx); Expiratory wheezing Start: 07-20-2022 Telephone encounter Pastor Garcia MD Work Phone: [facility] Comment on above: Results Start: 07-17-2022 End: 07-17-2022 Subsequent hospital visit by physician [facility] Work Phone: Radiology Comment on above: Wrist pain, right [M 25.531] Start: 07-17-2022 End: 07-17-2022 Patient encounter procedure Elan Garcia MD Work Phone: [facility] Comment on above: Wrist pain, right (P rimary Dx); Hand pain, right; Screening mammogram for breast cancer Start: 07-15-2022 Telephone encounter Pastor Garcia MD Work Phone: [facility] Comment on above: Erroneous encounter- disregard Start: 07-04-2022 Telephone encounter Mitul pugh DO Work Phone: Hematology/Oncology Comment on above: Results (BCR/ABL Neg ative) Start: 06-30-2022 Telephone encounter Pastor Garcia MD Work Phone: [facility] Comment on above: Patient Update Start: 06-22-2022 End: 06-22-2022 Patient encounter procedure Edna Loco APRN.MEETING MANAGER Work Phone: [facility] [place] Comment on above: Fall, subsequent enc [...] procedure Mitul Sánchez DO Work Phone: [facility] Start: 06-03-2022 End: 06-03-2022 Patient encounter procedure Elan Garcia MD Work Phone: [facility] Comment on above: Leukocytosis, unspec ified type (Primary Dx); Neutrophilia; Essential hypertension; Mixed hyperlipidemia; Hypopituitarism (HCC); Gastroesophageal reflux disease without esophagitis; Stage 3a chronic kidney disease (HCC); Vaginal irritation Start: 06-01-2022 End: 06-01-2022 Subsequent hospital visit by physician [facility] Work Phone: Radiology Comment on above: Neutrophilia [D72.9] Start: 05-29-2022 Telephone encounter Pastor Garcia MD Work Phone: [facility] [place] Comment on above: Results Start: 05-15-2022 Telephone encounter Edna barraza APRN.MEETING MANAGER Work Phone: [facility] [place] Comment on above: Orders Start: 05-13-2022 Telephone encounter Pastor Garcia MD Work Phone: [facility] [place] Comment on above: Results Start: 05-12-2022 Telephone encounter Pastor Garcia MD Work Phone: [facility] Comment on above: Results Start: 05-12-2022 End: 05-12-2022 Subsequent hospital visit by physician [facility] Work Phone: Cat Scan Comment on above: Leukocytosis, unspec ified type [D72.829] Start: 05-12-2022 End: 05-12-[address] Kasey Bashir Work Phone: [facility] Start: 05-11-2022 End: 05-11-2022 Patient encounter procedure Elan Garcia MD Work Phone: [facility] Comment on above: Leukocytosis, unspec ified type (Primary Dx); Abdominal pain, generalized Start: 05-01-2022 Telephone encounter Pastor Garcia MD Work Phone: [facility] Comment on above: labs coming from Dr Sung office Start: 04-30-2022 End: 04-30-[address] Kasey Bashir Work Phone: [facility] Start: 04-30-2022 End: 04-30-[address] Kasey Bashir Work Phone: [facility]in[facility] Start: 04-23-2022 Telephone encounter Pastor Garcia MD Work Phone: [facility] Comment on above: Lab Orders Start: 04-14-2022 Telephone encounter Edna barraza APRN.MEETING MANAGER Work Phone: [facility] Comment on above: Results Start: 04-13-2022 End: 04-13-2022 Patient encounter procedure Edna Loco APRN.MEETING MANAGER Work Phone: [facility] Comment on above: Vaginal irritation ( Primary Dx) Start: 03-20-2022 End: 03-20-2022 Subsequent hospital visit by physician [facility] Work Phone: Radiology Comment on above: Chronic bilateral lo w back pain without sciatica [M54.50, G89.29] Start: 03-20-2022 End: 03-20-2022 Patient encounter procedure Elan Garcia MD Work Phone: [facility] Comment on above: Chronic bilateral lo w back pain without sciatica (Primary Dx); Chronic pain of both hips; Fall in home, initial encounter Start: 01-16-2022 Telephone encounter Pastor Garcia MD Work Phone: [facility] Comment on above: Results Start: 05-30-2021 End: 05-30-2021 Subsequent hospital visit by physician [facility] Work Phone: Radiology Comment on above: Foot pain, left [M79 .672] Start: 12-20-2020 End: 12-20-2020 Subsequent hospital visit by physician [facility] Work Phone: Radiology Comment on above: Cough [R05] Start: 11-19-2020 End: 11-19-2020 Subsequent hospital visit by physician [facility] Work Phone: Radiology Comment on above: Acute bilateral low back pain without sciatica [M54.5] Start: 10-28-2018 End: 10-28-2018 Patient encounter procedure [facility] Start: 04-22-2009 End: 04-15-2016 Patient encounter status Edna Loco AUTOMOTIVE STARTER REPAIRER.MEETING MANAGER Work Phone: [facility] Work Phone: Procedures Date Procedure Procedure Detail Performing Clinician Start: 05-21-2025 X-ray of cervical spine Dr. Pastor Garcia MD Work Phone: Start: 05-21-2025 X-ray of lumbosacral spine Dr. Pastor Garcia MD Work Phone: Start: 05-21-2025 X-ray of thoracic sp ine, three views Dr. Pastor Garcia MD Work Phone: Start: 09-25-2024 Urnls dip stick/tabl et rgnt auto w/o microscopy Adeline Butler AUTOMOTIVE STARTER REPAIRER.MEETING MANAGER Work Phone: Start: 08-03-2024 Dup-scan xtr veins unilateral/limited study Edna Goyallogjose angel AUTOMOTIVE STARTER REPAIRER.MEETING MANAGER Work Phone: Start: 05-24-2024 Radex hip unilateral [...] rgnt auto w/o microscopy Edna Goyallogjose angel AUTOMOTIVE STARTER REPAIRER.MEETING MANAGER Work Phone: Start: 04-02-2023 Magnetic resonance angiography [...] exam ches t 2 views Edna Loco AUTOMOTIVE STARTER REPAIRER.MEETING MANAGER Work Phone: Start: 07-17-2022 Radex hand minimum [...] complete minimum 3 views Edna Podlogjose angel AUTOMOTIVE STARTER REPAIRER.MEETING MANAGER Work Phone: Start: 04-22-2021 Adult depression screening assessment Elan Garcia MD Work Phone: Start: 12-20-2020 Radiologic exam ches t 2 views Cary Smith AUTOMOTIVE STARTER REPAIRER.MEETING MANAGER Work Phone: Start: 11-19-2020 Radex spine lumbosac ral 2/3 views Elan Garcia MD Work Phone: Start: 07-17-2019 Colonoscopy Pastor Garcia MD Work Phone: Plan of Treatment Date Care Activity Detail Author Start: 03-01-2030 Urine microalbumin profile [facility] Start: 09-25-2027 Diabetes Screening Diabetes Screenin [facility] Start: 06-22-2027 Diabetes Screening Diabetes Screenin [facility] Start: 05-11-2027 LIPID SCREEN LIPID SCREEN [facility] Start: 01-28-2027 Diabetes Screening Diabetes Screenin g [facility] Start: 12-01-2026 Diabetes Screening Diabetes Screenin g [facility] Start: 09-22-2026 Diabetes Screening Diabetes Screenin g [facility] Start: 04-16-2026 LIPID SCREEN LIPID SCREEN [facility] Start: 03-15-2026 DIABETES SCREEN DIABETES SCREEN [facility] Start: 03-15-2026 Diabetes Screening Diabetes Screenin g [facility] Start: 12-08-2025 Screening for osteoporosis Bone Density Screening [facility] Start: 10-27-2025 Annual PCP Team Cager Operator aaron Disease Visit Annual PCP Team Chronic Disease Visit [facility] Start: 10-27-2025 Covid-19 Vaccine ( season) Covid-19 Vaccine ( season) [facility] Comment on above: Postponed from 07/23 (Declined at this time) Start: 09-25-2025 Annual PCP Team Cager Operator aaron Disease Visit Annual PCP Team Chronic Disease Visit [facility] Start: 09-25-2025 Creatinine measurement Serum Creatin ine [facility] Start: 07-31-2025 Annual PCP Team Cager Operator aaron Disease Visit Annual PCP Team Chronic Disease Visit [facility] Start: 06-22-2025 Annual PCP Team Cager Operator aaron Disease Visit Annual PCP Team Chronic Disease Visit [facility] Start: 06-22-2025 BP Controlled (<130/80) BP Controlle d (<130/80) [facility] Start: 06-22-2025 Creatinine measurement Serum Creatin ine [facility] Start: 06-01-2025 BP Controlled (<130/80) BP Controlle d (<130/80) [facility] Start: 05-21-2025 Influenza vaccination Influenza Vacc ine (#1) [facility] Comment on above: Postponed from 07/23 (Declined at this time) Start: 05-13-2025 Annual PCP Team Cager Operator aaron Disease Visit Annual PCP Team Chronic Disease Visit [facility] Start: 05-13-2025 BP Controlled (<130/80) BP Controlle d (<130/80) [facility] Start: 05-11-2025 DIABETES SCREEN DIABETES SCREEN [facility] Start: 04-27-2025 End: 04-27-2025 Patient encounter procedure [facility] [place] Comment on above: 6 month follow up 6 month follow up/[facility]*Per [employer] Initiative-[id number], [id number] Modifier 25* Start: 03-22-2025 Annual PCP Team Cager Operator aaron Disease Visit Annual PCP Team Chronic Disease Visit [facility] Start: 03-22-2025 Anxiety Screening Anxiety Screening [facility] Start: 03-22-2025 BP Controlled (<130/80) BP Controlle d (<130/80) [facility] Start: 03-22-2025 Depression Screening Depression Scre ening [facility] Start: 02-27-2025 Annual PCP Team Cager Operator aaron Disease Visit Annual PCP Team Chronic Disease Visit [facility] Start: 02-01-2025 Annual PCP Team Cager Operator aaron Disease Visit Annual PCP Team Chronic Disease Visit [facility] Start: 01-28-2025 Annual PCP Team Cager Operator aaron Disease Visit Annual PCP Team Chronic Disease Visit [facility] Start: 01-28-2025 BP Controlled (<130/80) BP Controlle d (<130/80) [facility] Start: 01-28-2025 Complete blood count Hemoglobin/Jake tocrit [facility] Start: 01-28-2025 Creatinine measurement Serum Creatin ine [facility] Start: 01-05-2025 Annual PCP Team Cager Operator aaron Disease Visit Annual PCP Team Chronic Disease Visit [facility] Start: 01-05-2025 BP Controlled (<130/80) BP Controlle d (<130/80) [facility] Start: 12-01-2024 Annual PCP Team Cager Operator aaron Disease Visit Annual PCP Team Chronic Disease Visit [facility] Start: 12-01-2024 Complete blood count Hemoglobin/Jake tocrit [facility] Start: 12-01-2024 Creatinine measurement Serum Creatin ine [facility] Start: 11-23-2024 End: 11-23-2024 ambulatory 11/23/2024 10:15 AM EST OT/PT/Speech Visit [facility] [address] [place] [address] OCatherine Stern, PT Acute left-sided low back pain with left-sided sciatica [M54.42] [facility] Comment on above: Acute left-sided low back pain with left-sided sciatica [M54.42] Start: 11-22-2024 Advance Directive Discussion Advance Directive Discussion [facility] Start: 10-27-2024 End: 10-27-2024 Patient encounter procedure 10/27/2024 10:00 AM EST Office Visit [facility] [place] [address] [place] [address] PodlogarEdna APRN.MEETING MANAGER [address] [place] [address] routine follow up [facility] [place] Comment on above: routine follow up Start: 10-21-2024 DIABETES SCREEN DIABETES SCREEN [facility] Start: 09-22-2024 Annual PCP Team Cager Operator aaron Disease Visit Annual PCP Team Chronic Disease Visit [facility] Start: 09-22-2024 End: 12-22-2024 Comprehensive metabolic 2000 panel - Serum or Plasma COMPREHENSIVE METABOLIC PANEL Lab Routine Stage 3a chronic kidney disease (HCC) Expected: 09/22/2024, Expires: 12/22/2024 [facility] Work Phone: Comment on above: Expected: 09/22/2024 , Expires: 12/22/2024 Start: 09-22-2024 Covid-19 Vaccine (#1) Covid-19 Vacci ne (#1) [facility] Comment on above: Postponed from 10/20 (Declined at this time) Start: 09-22-2024 Covid-19 Vaccine () Covid-19 Vaccine () [facility] Comment on above: Postponed from 07/23 (Declined at this time) Start: 09-22-2024 End: 12-22-2024 Lipid 1996 panel - Serum or Plasma LIPID PANEL BASIC Lab Routine Mixed hyperlipidemia Expected: 09/22/2024, Expires: 12/22/2024 [facility] Comment on above: Expected: 09/22/2024 , Expires: 12/22/2024 Start: 09-22-2024 Pneumococcal Vaccine : 65+ (2 - PCV) Pneumococcal Vaccine: 65+ (2 - PCV) [facility] Comment on above: Postponed from 09/18 (Declined at this time) Start: 09-22-2024 Pneumococcal Vaccine : 65+ (2 of 2 - PCV) Pneumococcal Vaccine: 65+ (2 of 2 - PCV) [facility] Comment on above: Postponed from 09/18 (Declined at this time) Start: 09-22-2024 RSV Vaccine (1 - 1-d ose 60+ series) RSV Vaccine (1 - 1-dose 60+ series) [facility] Comment on above: Postponed from 04/19 (Declined at this time) Start: 09-22-2024 RSV Vaccine (1 - 1-d ose 75+ series) RSV Vaccine (1 - 1-dose 75+ series) [facility] Comment on above: Postponed from 04/19 (Declined at this time) Start: 09-22-2024 Serum Creatinine Serum Creatinine [facility] Start: 09-22-2024 Shingrix Vaccine (1 of 2) Zurita grix Vaccine (1 of 2) [facility] Comment on above: Postponed from 04/19 (Declined at this time) Start: 09-22-2024 End: 09-22-2024 Patient encounter procedure 09/22/2024 10:00 AM EDT Office Visit [facility] [place] [address] [place], [place] [id number] Elan Garcia MD [address] [place], [place] [id number] 6 month follow up [facility] [place] Comment on above: 6 month follow up Start: 08-03-2024 Annual PCP Team Cager Operator aaron Disease Visit Annual PCP Team Chronic Disease Visit [facility] Start: 08-03-2024 BP Controlled (<130/80) BP Controlle d (<130/80) [facility] Start: 08-03-2024 End: 08-03-2024 Patient encounter procedure 08/03/2024 10:45 AM EDT Appointment Radiology [address] [place], [place] [id number] Pain in right lower leg [M79.661] Radiology Comment on above: Pain in right lower leg [M79.661] Start: 07-23-2024 Covid-19 Vaccine ( season) Covid-19 Vaccine ( season) [facility] Start: 07-23-2024 Covid-19 Vaccine ( season) Covid-19 Vaccine ( season) [facility] Start: 07-23-2024 Influenza vaccination [facility] Start: 07-17-2024 Colonoscopy COLONOSCOPY [facility] Start: 07-17-2024 COLORECTAL CANCER SCREENING COLORECTAL CANCER SCREENING [facility] Start: 06-23-2024 End: 06-23-2024 ambulatory 06/23/2024 10:00 AM EDT OT/PT/Speech Visit [facility] [address] [place] [address] Catherine Valles, PT Right Hip FX [facility] Comment on above: Right Hip FX Start: 06-22-2024 End: 09-21-2024 Comprehensive metabolic 2000 panel - Serum or Plasma [facility] Work Phone: Comment on above: Expected: 06/22/2024 , Expires: 09/21/2024 Start: 06-22-2024 End: 09-21-2024 Urinalysis complete panel - Urine [facility] Comment on above: Expected: 06/22/2024 , Expires: 09/21/2024 Start: 06-22-2024 End: 06-22-2024 Patient encounter procedure 06/22/2024 10:00 AM EDT Office Visit Family [facility] [address] [place] [address] Elan Garcia MD [address] [place] [address] 6 week follow up [facility] [place] Comment on above: 6 week follow up Start: 06-01-2024 End: 06-01-2024 ambulatory 06/01/2024 9:45 AM EDT OT/PT/Speech Visit [facility] [address] [place] [address] Jg Howard, PT, DPT Fall in home, subsequent encounter [W19.XXXD, Y92.009]; Other fracture of unspecified thoracic vertebra, initial encounter for closed fracture (HCC) [S22.008A]; Closed fracture of ramus of right pubis with routine healing, subsequent encounter [S32.591D] [facility] Comment on above: Fall in home, subseq uent encounter [W19.XXXD, Y92.009]; Other fracture of unspecified thoracic vertebra, initial encounter for closed fracture (HCC) [S22.008A]; Closed fracture of ramus of right pubis with routine healing, subsequent encounter [S32.591D] Start: 05-26-2024 End: 05-26-2024 Patient encounter procedure 05/26/2024 10:00 AM EDT Appointment Radiology [address] [place] [address] Hip xray Radiology Comment on above: Hip xray Start: 05-21-2024 Influenza vaccination Influenza Vacc ine (#1) [facility] Comment on above: Postponed from 07/23 (Declined at this time) Start: 05-18-2024 End: 06-12-2025 XR Pelvis and Hip - right AP and Lateral frog XR HIP GENERAL 3V PELV/AP/LAT RIGHT Radiology Routine Fall in home, subsequent encounter Closed fracture of ramus of right pubis with routine healing, subsequent encounter Expected: 05/18/2024, Expires: 06/12/2025 [facility] Work Phone: Comment on above: Expected: 05/18/2024 , Expires: 06/12/2025 Start: 04-12-2024 ANNUAL PCP TEAM TRANSPORT SPECIALIST AARON DISEASE VISIT ANNUAL PCP TEAM CHRONIC DISEASE VISIT [facility] Start: 03-15-2024 SERUM CREATININE SERUM CREATININE [facility] Start: 03-08-2024 ANNUAL PCP TEAM TRANSPORT SPECIALIST AARON DISEASE VISIT ANNUAL PCP TEAM CHRONIC DISEASE VISIT [facility] Start: 03-08-2024 BP CONTROLLED (<130/80) BP CONTROLLE D (<130/80) [facility] Start: 01-29-2024 End: 04-29-2024 CBC W Auto Differential panel - Blood [facility] Work Phone: Comment on above: Expected: 01/29/2024 , Expires: 04/29/2024 Start: 01-29-2024 End: 04-29-2024 Comprehensive metabolic 2000 panel - Serum or Plasma [facility] Work Phone: Comment on above: Expected: 01/29/2024 , Expires: 04/29/2024 Start: 01-23-2024 [facility] Start: 12-21-2023 Shingrix Vaccine (2 of 2) Zurita grix Vaccine (2 of 2) [facility] Start: 11-22-2023 Advance Directive Discussion Advance Directive Discussion [facility] Start: 11-22-2023 Behavioral Health Screening Behavioral Health Screening [facility] Start: 11-22-2023 Depression Assessment Depression Ass essment [facility] Start: 10-21-2023 ANNUAL PCP TEAM TRANSPORT SPECIALIST AARON DISEASE VISIT ANNUAL PCP TEAM CHRONIC DISEASE VISIT [facility] Start: 07-23-2023 Influenza vaccination [facility] Start: 07-17-2023 ANNUAL PCP TEAM TRANSPORT SPECIALIST AARON DISEASE VISIT ANNUAL PCP TEAM CHRONIC DISEASE VISIT [facility] Start: 07-17-2023 BP CONTROLLED (<130/80) BP CONTROLLE D (<130/80) [facility] Start: 06-22-2023 ANNUAL PCP TEAM TRANSPORT SPECIALIST AARON DISEASE VISIT ANNUAL PCP TEAM CHRONIC DISEASE VISIT [facility] Start: 06-22-2023 BP CONTROLLED (<130/80) BP CONTROLLE D (<130/80) [facility] Start: 06-15-2023 HEMOGLOBIN/HEMATOCRIT HEMOGLOBIN/HEM ATOCRIT [facility] Start: 06-03-2023 ANNUAL PCP TEAM TRANSPORT SPECIALIST AARON DISEASE VISIT ANNUAL PCP TEAM CHRONIC DISEASE VISIT [facility] Start: 06-03-2023 BP CONTROLLED (<130/80) BP CONTROLLE D (<130/80) [facility] Start: 06-03-2023 COVID-19 VACCINE (#1) COVID-19 VACCI NE (#1) [facility] Comment on above: Postponed from 10/20 (Declined at this time) Start: 06-03-2023 PNEUMOCOCCAL: 65+ (2 - PCV) PNEUMOCOCCAL: 65+ (2 - PCV) [facility] Comment on above: Postponed from 09/18 (Declined at this time) Start: 06-03-2023 SHINGRIX VACCINE (1 of 2) ZURITA GRIX VACCINE (1 of 2) [facility] Comment on above: Postponed from 04/19 (Declined at this time) Start: 05-21-2023 Influenza vaccination INFLUENZA (#1) [facility] Comment on above: Postponed from 07/23 (Declined at this time) Start: 05-11-2023 ANNUAL PCP TEAM TRANSPORT SPECIALIST AARON DISEASE VISIT ANNUAL PCP TEAM CHRONIC DISEASE VISIT [facility] Start: 05-11-2023 HEMOGLOBIN/HEMATOCRIT HEMOGLOBIN/HEM ATOCRIT [facility] Start: 05-11-2023 SERUM CREATININE SERUM CREATININE [facility] Start: 04-13-2023 ANNUAL PCP TEAM TRANSPORT SPECIALIST AARON DISEASE VISIT ANNUAL PCP TEAM CHRONIC DISEASE VISIT [facility] Start: 04-13-2023 BP CONTROLLED (<130/80) BP CONTROLLE D (<130/80) [facility] Start: 04-02-2023 Patient discharge [facility] Start: 04-02-2023 Referral to occupati onal therapist [facility] Start: 04-01-2023 Following clinical pathway protocol [facility] Start: 04-01-2023 Application of intermittent pneumatic compression device [facility] Start: 04-01-2023 Assessment of risk o f venous thromboembolism [facility] Start: 04-01-2023 Cardiac monitoring [facility] Start: 04-01-2023 Catheterization of vein [facility] Start: 04-01-2023 Continuous pulse oximetry [facility] Start: 04-01-2023 Elevation of head of bed [facility] Start: 04-01-2023 Exercises [facility] Start: 04-01-[address] anned interventions [facility] Start: 04-01-2023 Inhalation therapy procedure [facility] Start: 04-01-2023 Insertion of cathete r into peripheral vein [facility] Start: 04-01-2023 Measuring intake and output [facility] Start: 04-01-2023 Notification of physician [facility] Start: 04-01-2023 Oxygen therapy [facility] Start: 04-01-2023 Providing care accor ding to standard [facility] Start: 04-01-2023 Provision of activit y privileges [facility] Start: 04-01-2023 Referral to service [facility] Start: 04-01-2023 Tobacco use cessatio n education [facility] Start: 04-01-2023 [facility] Start: 04-01-2023 Verification routine [facility] Start: 04-01-2023 Admission procedure [facility] Start: 03-20-2023 ANNUAL PCP TEAM TRANSPORT SPECIALIST AARON DISEASE VISIT ANNUAL PCP TEAM CHRONIC DISEASE VISIT [facility] Start: 03-20-2023 BP CONTROLLED (<130/80) BP CONTROLLE D (<130/80) [facility] Start: 03-08-2023 End: 05-08-2023 Comprehensive metabolic 2000 panel - Serum or Plasma COMP METABOLIC PANEL Lab Routine Essential hypertension Expected: 03/08/2023, Expires: 05/08/2023 [facility] Work Phone: Comment on above: Expected: 03/08/2023 , Expires: 05/08/2023 Start: 11-22-2022 ADVANCE DIRECTIVE DISCUSSION ADVANCE DIRECTIVE DISCUSSION [facility] Start: 11-22-2022 DEPRESSION ASSESSMENT DEPRESSION ASS ESSMENT [facility] Start: 11-10-2022 Therapeutic prophylactic/dx injection subq/im THER/PROPH/DIAG INJ SC/IM [facility] Work Phone: Start: 10-21-2022 SERUM CREATININE SERUM CREATININE [facility] Start: 08-17-2022 End: 08-16-2023 Screening mammography bi [facility] cad JOON SCREENING Radiology Routine Screening mammogram for breast cancer Expected: 08/17/2022, Expires: 08/16/2023 [facility] Work Phone: Comment on above: Expected: 08/17/2022 , Expires: 08/16/2023 Start: 08-13-2022 Mammography MAMMOGRAM [facility] Start: 07-23-2022 Influenza vaccination INFLUENZA (#1) [facility] Start: 06-15-2022 End: 08-15-2022 BCR-ABL QUALITATIVE MULTIPLEX RT-PCR [facility] Work Phone: Comment on above: Expected: 06/15/2022 , Expires: 08/15/2022 Start: 06-15-2022 End: 08-15-2022 Cortisol [Mass/volume] in Serum or Plasma [facility] Work Phone: Comment on above: Expected: 06/15/2022 , Expires: 08/15/2022 Start: 05-26-2022 End: 07-26-2022 CBC W Auto Differential panel - Blood CBC + DIFF Lab Routine Neutrophilia Expected: 05/26/2022, Expires: 07/26/2022 [facility] Work Phone: Comment on above: Expected: 05/26/2022 , Expires: 07/26/2022 Start: 05-23-2022 End: 07-23-2022 CBC panel - Blood by Automated count CBC Lab Routine Hypopituitarism (HCC) Essential hypertension Mixed hyperlipidemia Expected: 05/23/2022, Expires: 07/23/2022 [facility] Work Phone: Comment on above: Expected: 05/23/2022 , Expires: 07/23/2022 Start: 05-23-2022 End: 07-23-2022 Comprehensive metabolic 2000 panel - Serum or Plasma COMP METABOLIC PANEL Lab Routine Hypopituitarism (HCC) Essential hypertension Mixed hyperlipidemia Expected: 05/23/2022, Expires: 07/23/2022 [facility] Work Phone: Comment on above: Expected: 05/23/2022 , Expires: 07/23/2022 Start: 05-23-2022 End: 07-23-2022 LIPID PANEL, NONFASTING LIPID PANEL, NONFASTING Lab Routine Hypopituitarism ([facility]) Essential hypertension Mixed hyperlipidemia Expected: 05/23/2022, Expires: 07/23/2022 [facility] Work Phone: Comment on above: Expected: 05/23/2022 , Expires: 07/23/2022 Start: 05-23-2022 End: 07-23-2022 Thyrotropin [Units/volume] in Serum or Plasma TSH BLD Lab Routine Hypopituitarism (HCC) Essential hypertension Mixed hyperlipidemia Expected: 05/23/2022, Expires: 07/23/2022 [facility] Work Phone: Comment on above: Expected: 05/23/2022 , Expires: 07/23/2022 Start: 04-22-2022 Adult depression screening assessment DEPRESSION SCREENING [facility] Start: 04-22-2022 COVID-19 VACCINE (#1) COVID-19 VACCI NE (#1) [facility] Comment on above: Postponed from 04/19 (Declined at this time) Start: 04-22-2022 COVID-19 VACCINE (1) COVID-19 VACCIN E (1) [facility] Comment on above: Postponed from 04/19 (Declined at this time) Start: 2022 RSV Vaccine (1 - 1-d ose 75+ series) RSV Vaccine (1 - 1-dose 75+ series) [facility] Start: 04-16-2022 HEMOGLOBIN/HEMATOCRIT HEMOGLOBIN/HEM ATOCRIT [facility] Start: 11-22-2021 ADVANCE DIRECTIVE DISCUSSION ADVANCE DIRECTIVE DISCUSSION [facility] Start: 11-22-2021 DEPRESSION ASSESSMENT DEPRESSION ASS ESSMENT [facility] Start: 09-18-2014 Pneumococcal Vaccine : 50+ (2 of 2 - PCV) Pneumococcal Vaccine: 50+ (2 of 2 - PCV) [facility] Start: 09-18-2014 Pneumococcal Vaccine : 65+ (2 - PCV) Pneumococcal Vaccine: 65+ (2 - PCV) [facility] Start: 09-18-2014 Pneumococcal Vaccine : 65+ (2 of 2 - PCV) Pneumococcal Vaccine: 65+ (2 of 2 - PCV) [facility] Start: 09-18-2014 PNEUMOCOCCAL: 65+ (2 - PCV) PNEUMOCOCCAL: 65+ (2 - PCV) [facility] Start: 09-27-2013 FECAL OCCULT BLOOD FECAL OCCULT BLOO D [facility] Start: 1997 SHINGRIX VACCINE (1 of 2) ZURITA GRIX VACCINE (1 of 2) [facility] Start: 1992 COLOGUARD (FIT-DNA) COLOGUARD (FIT-D NA) [facility] Start: [address] COLONOGRAPHY [facility] Start: 1992 SIGMOIDOSCOPY SIGMOIDOSCOPY [facility] Start: 1965 BP CONTROLLED (<130/80) BP CONTROLLE D (<130/80) [facility] Start: 1952 COVID-19 VACCINE (#1) COVID-19 VACCI NE (#1) [facility] Start: 1947 COVID-19 VACCINE (#1) COVID-19 VACCI NE (#1) [facility] Bacteria identified in Blood by Culture BLOOD CULTURE Microbiology Routine Neutrophilia Leukocytosis, unspecified type 06/01/2022 10:26 AM EDT [facility] Work Phone: Bacteria identified in Urine by Culture URINE CULTURE Microbiology Routine Leukocytosis, unspecified type 05/11/2022 4:00 PM EDT [facility] Work Phone: Bacteria identified in Urine by Culture URINE CULTURE Microbiology Routine Vaginal discharge Vaginal itching 08/03/2023 9:45 AM EDT [facility] Work Phone: Bacteria identified in Urine by Culture URINE CULTURE Microbiology Routine Lower abdominal tenderness 09/25/2024 10:28 AM [facility] BACTERIAL VAGINOSIS AMPLIFICATION BACTERIAL VAGINOSIS AMPLIFICATION Lab Routine Vaginal irritation 04/13/2022 2:[facility] Work Phone: BACTERIAL VAGINOSIS NAAT BACTERI AL VAGINOSIS NAAT Lab Routine Vaginal discharge 08/03/2023 9:45 AM EDT [facility] Work Phone: DARON / TRICHOMONA S AMPLIFICATION DARON / TRICHOMONAS AMPLIFICATION Lab Routine Vaginal irritation 04/13/2022 2:15 PM [facility] Work Phone: DARON/TRICHOMONAS NAAT DARON /TRICHOMONAS NAAT Lab Routine Vaginal discharge 08/03/2023 9:45 AM [facility] Work Phone: CBC W Ordered Manual Differential panel - Blood PATHOLOGIST INTERPRETATION WITH CBC AND DIFF Lab Routine Neutrophilia Leukocytosis, unspecified type 06/15/2022 2:11 PM [facility] Work Phone: Comprehensive metabo lic 2000 panel - Serum or Plasma COMPREHENSIVE METABOLIC PANEL Lab Routine Stage 3a chronic kidney disease (HCC) 09/25/2024 9:39 AM [facility] End: 06-10-2023 Ct abdomen & pelvis w/o contrast material CT ABD/PEL WO IVCON Radiology STAT Leukocytosis, unspecified type 1 Occurrences starting 05/11/2022 until 06/10/2023 [facility] Work Phone: Comment on above: 1 Occurrences starti ng 05/11/2022 until 06/10/2023 Lipid 1996 panel - S yassine or Plasma LIPID PANEL BASIC Lab Routine Mixed hyperlipidemia 09/25/2024 9:39 AM [facility] MR Brain WO and W contrast IV [facility] MR Brain WO contrast [facility] End: 08-19-2023 Mri any jt upper extremity w/o contrast matrl MRI WRIST WO IVCON RT Radiology Routine Right wrist pain 1 Occurrences starting 07/20/2022 until 08/19/2023 [facility] Work Phone: Comment on above: 1 Occurrences starti ng 07/20/2022 until 08/19/2023 Patient Education [facility] Work Phone: Patient referral [facility] Work Phone: End: 11-20-2023 Radiologic exam chest 2 views XR CHEST 2V FRONTAL/LAT Radiology Routine Expiratory wheezing Acute cough 1 Occurrences starting 10/21/2022 until 11/20/2023 [facility] Work Phone: Comment on above: 1 Occurrences starti ng 10/21/2022 until 11/20/2023 Radiologic exam ches t 2 views XR CHEST 2V FRONTAL/LAT Radiology Routine Expiratory wheezing 10/21/2022 9:35 AM [facility] Work Phone: T4 free measurement [facility] Triiodothyronine, fr ee measurement [facility] UA DIP, URINE (POC) UA DIP, URIN E (POC) Lab Routine Leukocytosis, unspecified type Ordered: 05/11/2022 [facility] Work Phone: Comment on above: Ordered: 05/11/2022 Urinalysis complete panel - Urine URINALYSIS, WITH MICROSCOPIC Lab Routine Lower abdominal tenderness 09/25/2024 10:28 AM [facility] [employer] Work Phone: End: 08-30-2025 US Lower extremity vein - right US DVT LOWER RIGHT Radiology JOHN Pain in right lower leg 1 Occurrences starting 07/31/2024 until 08/30/2025 [facility] Work Phone: Comment on above: 1 Occurrences starti ng 07/31/2024 until 08/30/2025 End: 08-16-2023 XR HAND GENERAL 3V PA/LAT/OBL RIGHT XR HAND GENERAL 3V PA/LAT/OBL RIGHT Radiology Routine Wrist pain, right Hand pain, right 1 Occurrences starting 07/17/2022 until 08/16/2023 [facility] Work Phone: Comment on above: 1 Occurrences starti ng 07/17/2022 until 08/16/2023 XR HAND GENERAL 3V PA/LAT/OBL RIGHT XR HAND GENERAL 3V PA/LAT/OBL RIGHT Radiology Routine Wrist pain, right Hand pain, right 07/17/2022 8:40 AM EDT [facility] Work Phone: End: 08-16-2023 XR WRIST GENERAL 3V PA/LAT/OBL RIGHT XR WRIST GENERAL 3V PA/LAT/OBL RIGHT Radiology Routine Wrist pain, right Hand pain, right 1 Occurrences starting 07/17/2022 until 08/16/2023 [facility] Work Phone: Comment on above: 1 Occurrences starti ng 07/17/2022 until 08/16/2023 XR WRIST GENERAL 3V PA/LAT/OBL RIGHT XR WRIST GENERAL 3V PA/LAT/OBL RIGHT Radiology Routine Wrist pain, right Hand pain, right 07/17/2022 8:40 AM EDT [facility] Work Phone: [facility] Immunizations Immunization Date Immunization Notes Care Provider Fa [facility] 10-25-2021 influenza, high-dose , quadrivalent vaccine (FLUZONE HIGH DOSE QUADRIVALENT) Elan Garcia MD Work Phone: [facility] 10-25-2021 influenza virus vaccine, unspecified formulation Edna Loco APRN.CNP Work Phone: [facility] 03-01-2020 tetanus toxoid, redu jamaal diphtheria toxoid, and acellular pertussis vaccine, adsorbed Elan Garcia MD Work Phone: [facility] 09-18-2013 influenza virus vaccine, unspecified formulation Elan Garcia MD Work Phone: [facility] 09-18-2013 pneumococcal polysaccharide vaccine, 23 valent Elan Garcia MD Work Phone: [facility] 09-10-2009 influenza virus vaccine, unspecified formulation Elan Garcia MD Work Phone: [facility] Work Phone: 04-22-2009 tetanus and diphther ia toxoids, adsorbed, preservative free, for adult use (2 Lf of tetanus toxoid and 2 Lf of diphtheria toxoid) Elan Garcia MD Work Phone: [facility] 10-25-2008 influenza virus vaccine, unspecified formulation Elan Garcia MD Work Phone: [facility] 09-14-2007 influenza virus vaccine, unspecified formulation Elan Garcia MD Work Phone: [facility] Work Phone: 10-08-2006 influenza virus vaccine, unspecified formulation Elan Garcia MD Work Phone: [facility] 09-25-2005 influenza virus vaccine, unspecified formulation Elan Garcia MD Work Phone: [facility] Work Phone: Payers Date Payer Category Payer Self-pay [id number] 2021 Medicare HU[employer]NA MEDICARE HU[employer]NA MEDICARE PPO [id number] 2021-Present [phone] [facility] [id number] [place] [address] PPO [id number] 2021 Medicare [id number] 2019 Medicare [id number] Medicare [id number] Unknown [id number] Unknown [id number] Unknown [id number] Unknown [id number] Unknown [id number] Social History Date Type Detail Facility Start: 06-02-2011 End: 10-18-2024 Tobacco smoking status NHIS Never smoked tobacco [facility] Start: 03-20-2022 End: 10-27-2024 Alcohol intake Current non-drinker of alcohol (finding) [facility] Start: 1945 Sex Assigned At Not on file [facility] Start: 10-20-2020 End: 10-21-2022 Exposure to SARS-CoV-2 (event) Not sure [facility] Start: 04-30-2022 End: 01-22-2024 Tobacco smoking status NHIS Unknown if ever smoked [facility] Start: 08-19-2018 None [facility] Start: 04-24-2021 Homeless [facility] Start: 07-13-2019 Non-smoker [facility] Start: 1945 Sex Assigned At Female W [facility] Start: 06-02-2011 Tobacco use and exposure Smokeless tobacco non-user [facility] Work Phone: Start: 04-12-2023 End: 08-03-2023 History of Social function [facility] Work Phone: Start: 04-12-2023 End: 08-03-2023 Tobacco use panel [facility] Work Phone: Adult Depression Screening Assessment 1 [facility] Work Phone: Start: 06-18-2023 Gender identity Identifies as female gender (finding) [facility] Start: 06-18-2023 Sexual orientation Heterosexual (fin sherrill) [facility] Functional Status Date Assessment Result Facility 04-02-2023 Functional status Ambulates [facility] Work Phone: Mental Status Date Assessment Result Facility 11-19-2023 Cognitive function Awake;Alert;A ppropriate;Fol lows Commands [facility] Work Phone: 05-21-2023 Cognitive function Awake;Alert;A ppropriate;Fol lows Commands [facility] Work Phone: 04-02-2023 Cognitive function Awake;Alert;A ppropriate;Fol lows Commands [facility] Work Phone: 04-01-2023 Cognitive function Awake;Alert;A ppropriate;Fol lows Commands [facility] Work Phone: 11-10-2022 Cognitive function Voice/Name [facility] Work Phone: 05-12-2022 Cognitive function Voice/Name [facility] Work Phone: Clinical Notes 11-19-2020 to 05-21-2025 Note Date & Type Note Facility 05-21-2025 Radiology Diagnostic study note [facility] Imaging Services [address] [place], [place] [address] Cerv Spine 2 or 3 Views MR#: [id number] Acct: [id number] Name: DORA BRYANT Rep #: [id number] : 1945 F 80 From: Gabrielle Andersen MD PCP: Dr. Yon Salas MD Status: [facility] C Study:Cerv Spine 2 or 3 Views Date of Exam: 05/21/25 Exam# [id number] Ordering Dr: Yon Salas MD PROCEDURE: CERV [...] spine, worst atC5-6 and C6-7. Reading Location: [id number] CC: Dr. Yon Salas MD ~ Forensic Manager: Signed [facility] 05-21-2025 Radiology Diagnostic study note [facility] Imaging Services [address] [place] [address] Thoracic Spine 3 Views MR#: [id number] Acct: [id number] Name: DORA BRYANT Rep #: [id number] : 1945 F 80 From: Gabrielle Andersen MD PCP: Dr. Yon Salas MD Status: REG C Study:Thoracic Spine 3 Views Date of Exam: 05/21/25 Exam# [id number] Ordering Dr: Yon Salas MD PROCEDURE: THORACIC SPINE 3 VIEWS 05/21/2025 REASON FOR EXAM: THORACIC BACK PAIN TECHNIQUE: THORACIC SPINE 3 VIEWS COMPARISON: Thoracic spine radiographs 05/11/2024 FINDINGS: Slight anterior wedging of several upper thoracic vertebral bodies, unchanged from 05/11/2024. Thoracic vertebral body heights are otherwise maintained. There is mild leftward curvature of the thoracic spine. Yxrf-uf-kknvvktp multilevel disc height loss with endplate osteophyte formation. The visualized lungs are clear. Aortic atherosclerosis. RAD/Thoracic Spine 3 Views IMPRESSION: 1. Mild to moderate multilevel degenerative changes of the thoracic spine. 2. Slight anterior wedging of several upper thoracic vertebral bodies is unchanged from 05/11/2024. Reading Location: [id number] CC: Dr. Yon Salas MD ~ Forensic Manager: Signed [facility] 05-21-2025 Radiology Diagnostic study note [facility] Imaging Services [address] [place] [address] L/S Spine Min 4 Views MR#: [id number] Acct: [id number] Name: DORA BRYANT Rep #: [id number] : 1945 F 80 From: Gabrielle Andersen MD PCP: Dr. Yon Salas MD Status: REG C Study:L/S Spine Min 4 Views Date of Exam: 05/21/25 Exam# [id number] Ordering Dr: Yon Salas MD PROCEDURE: L/S SPINE MIN 4 VIEWS 05/21/2025 REASON FOR EXAM: LOW BACK PAIN TECHNIQUE: L/S SPINE MIN 4 VIEWS COMPARISON: Lumbar spine radiographs on 05/11/2024 FINDINGS: There are 5 jef-mil-tdoslvw lumbar-type vertebral bodies. Vertebral body heights are maintained. There is a proximally 5 mm anterolisthesis of L5 on S1, unchanged. No pars defect identified on the oblique images. Zacy-cn-ernnbmem multilevel disc height loss and endplate osteophyte formation with facet arthrosis, worst at L3-4 through L5-S1. Aortic atherosclerosis. RAD/L/S Spine Min 4 Views IMPRESSION: Rkqy-yv-zongvxcz degenerative changes of the lumbar spine, worst from L3-4 through L5-S1 and progressed since radiographs on 05/11/2024. Reading Location: [id number] CC: Dr. Yon Salas MD ~ Forensic Manager: Signed [facility] 05-18-2025 Evaluation note Diagnosis Onset Date Resolution Glucocorticoid deficiency chronic May 18, 2025 10:45am History of pituitary tumor chronic May 18, 2025 10:45am Osteoporosis chronic May 18, 025 10:45am Secondary hypothyroidism chronic May 18, 2025 10:45am [facility] Work Phone: 1(170) 176-550906-27-[address] [facility] [address] [place] [address]. [address] [place], [place] [address] OFFICE VISIT Date of Service: 05/18/25 MR#: [id number] Acct: [id number] Name: DORA BRYANT Rep #: [id number] : 1945 Provider: Dr. 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 Accompanied by: Self Is patient [...] denosumab 60 mg/mL subcutaneous 60 mg subcut [id number] #1 mL 05/20/23 05/18/25 Rx syringe (Prolia) [...] Procedure performed by: Radha Tidwell Lot number: [id number] Chiropractic Care: [employer] date: 07/22/27 Dose of injection: 1mL Site of injection: Sub-Q Medication Given: Yes Is this a patient provided medication?: No Office Meds Prolia 60 mg/mL subcutaneous syringe Performing Provider: Lei Sung MD Performing Location: [facility] Administered by: Radha Tidwell on 05/18/25 11:01 Dose Route Admin Location Dispensed Lot Number Expiration Date [facility] Chiropractic Care 60 mg subcut Lt Arm 1 mL [id number] 07/22/27 73073-799-88 [employer] Clinical Quality Measures Falls Risk Screening/Assistive [...] applicable) CC: Dr. Pastor Garcia MD ~ [facility]06-27-2025 Progress note Author Lei Sung [facility] Services Note Date/Time May 18, 2025 12:1 4pm [facility] [address] [place] [address] OFFICE VISIT Date of Service: 05/18/25 MR#: [id number] Acct: [id number] Name: DORA BRYANT Rep #: [id number] : 1945 Provider: Dr. 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 Accompanied by: Self Is patient [...] denosumab 60 mg/mL subcutaneous 60 mg subcut [id number] #1 mL 05/20/23 05/18/25 Rx syringe (Prolia) [...] nourished Orientation: alert, awake and oriented x3 HENMA Head: normal to inspection Ears: hearing grossly [...] Procedure performed by: Radha Tidwell Lot number: [id number] Chiropractic Care: [employer] date: 07/22/27 Dose of injection: 1mL Site of injection: Sub-Q Medication Given: Yes Is this a patient provided medication?: No Office Meds Prolia 60 mg/mL subcutaneous syringe Performing Provider: Lei Sung MD Performing Location: [facility] Administered by: Radha Tidwell on 05/18/25 11:01 Dose Route Admin Location Dispensed Lot Number Expiration Date [facility] Chiropractic Care 60 mg subcut Lt Arm 1 mL [id number] 07/22/27 06756-358-03 [employer]GEN Clinical Quality Measures Falls Risk Screening/Assistive [...] applicable) CC: Dr. Pastor Garcia MD ~ [facility] Work Phone: 1(770) 872-608001-22-2025 Telephone encounter Note* Telephone Encounter - Ina Beach RN - 12/13/2024 8:06 AM EST Phoned patient and given provider's message below with verbalized understanding. Patient agreeable to contact [facility]. [facility]01-22-2025 Miscellaneous Notes* Telephone Encounter - Ina Beach RN - 12/13/2024 8:06 AM EST Phoned patient and given provider's message below with verbalized understanding. Patient agreeable to contact [facility]. * Telephone Encounter - Elan Garcia MD - 12/13/2024 6:56 AM EST The [facility] determines which insurances they accept. This question [...] appt scheduled in April 2025 (MR # [id number]) has appt scheduled in March 2025 plus he is scheduled to complete labs on 01-01-25 Please advise patient: [phone]. documented in this encounterAshtabula [facility]01-22-2025 Telephone encounter Note * Telephone Encounter - Elan Garcia MD - 12/13/2024 6:56 AM EST The [facility] determines which insurances they accept. This question needs directed to financial. [facility]01-21-2025 Telephone encounter Note* Telephone Encounter - Ina Beach RN - 12/12/2024 4:37 PM EST Pt reports she and her are both patient's of Dr. Garcia. They have [employer] PPO Plan. The insurance company told them Dr. Garcia opted out of [employer]. Pt asking Dr. Garcia is this true? Pt has appt scheduled in April 2025 (MR # [id number]) has appt scheduled in March 2025 plus he is scheduled to complete labs on 01-01-25 Please advise patient: [phone]. [facility]12-30-2024 Telephone encounter Note* Telephone Encounter - Марина Araiza LPN - 11/20/2024 4:55 PM EST Pt notified of provider message. Марина Araiza LPN [facility]12-30-2024 Miscellaneous Notes* Telephone Encounter - Марина Araiza [...] have CKD stage 3? documented in this encounterAshtabula [facility] Center12-30-2024 Telephone encounter Note * Telephone Encounter - Ina Beach RN - 11/20/2024 4:50 PM EST Left vm for pt to return call to nurse for provider's message. [facility]12-30-2024 Telephone encounter Note* Telephone Encounter - Ab Castaneda MD - 11/20/2024 3:06 PM EST It is ok to take for stage III ckd. No adjustments need made unless it worsens. [facility] Work Phone: [phone]) [phone] Telephone encounter Note* Telephone Encounter - Guerita Gurrola LPN - 11/20/2024 2:44 PM EST Patient seen Edna Podlogar on 10/27/24 for a cough. It was recommended by Edna that patient try Zyrtec OTC. Patient questions if this is safe for her to do so as she does have CKD stage 3? [facility]12-23-2024 NoteHNO ID: [id number] Author: ?, ?, ? Service: ? Author [...] Population Health Navigator November 13, 2024 8:43 [facility]12-23-2024 History of Present illness Narrative* Pauline [...] Updated appointment notes Navigation Signature: [facility] Health Navigfrank November 13, 2024 8:43 AM documented in this encounterAshtabula [facility] Center12-23-2024 NotePatient Outreach (NETNAV) DORA BRYANT ([id number]) 1945 F Date Time Provider Department 11/13/24 CONNOR NEW NETNAV During your visit today, we recorded the following information about you: Pauline [facility] [employer] Connor Del Cid 11/13/2024 8:44 AM Signed POPULATION HEALTH NAVIGATION OUTREACH Action/FYI Updated PCP follow up to include medicare wellness per AWV initiative. Reason for Outreach Care Gap/HCC or Scheduling Wellness Visits Care Gaps due: Medicare Annual Wellness Visit Patient Contacted: Unable or unnecessary to reach patient: Flipped existing appointment Updated appointment notes Navigation Signature: [facility] [employer] Maria Eugenia November 13, 2024 8:43 AM [...] [K21.9] 04/26/2007 Routine general medical examination at [facility]*04/22/2009 04/15/2016 Benign Neoplasm of Colon [D12.6] 04/22/2009 [...] of unspecified thoracic vertebra*06/01/2024 Encounter Status:Closed by Lynk [facility]ALTH NAVIGATOR, CONNOR Owens on 11/13/24[facility]12-06-2024 History of Present illness Narrative* Jay JaylogEdna walter APRN.MEETING MANAGER - 10/27/2024 10:00 AM EST 10/27/2024 Patient [...] NSAID products Panhypopituitarism/HYPOTHYROIDISM: Follows with 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. Last office visit in April. Has upcoming [...] of pituitary gland and craniopharyngeal duct (pouch) ([facility]) Carpal tunnel syndrome CKD (chronic kidney disease), stage III ([facility]) Closed rib fracture 5,6,7,8,9,10 from [...] workup negative. 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 Sung-endocrinology Pituitary adenoma ([facility]) repeat MRI in 2024 Retinal tear, right s/p laser Sprain of neck Urinary tract infection, site not specified ALLERGIES Meloxicam, Nitrofurantoin, [place] [Hydrocodone-Acetaminophen], Penicillins, and Vioxx [Rofecoxib]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 Postinflammatory skin changes 10/07/2012 04/15/2016 Cholecystitis 07/15/2011 10/10/2013 Overview: [facility] 02/2011- partial CBD obs s/p lap rishi [...] of this encounter (statuses as of 01/29/2024) [facility] History of Past illness Narrative* Problem Noted Date Diagnosed Date Resolved Date Acute bilateral low back laura n without sciatica 11/26/2020 01/23/2021 Contact dermatitis and other eczema due to other specified agent 10/07/2012 04/15/2016 Eczematous dermatitis 10/07/20122015 Xerosis cutis 10/07/2012 04/15/2016 Postinflammatory skin changes 10/07/2012 04/15/2016 Cholecystitis 07/15/2011 10/10/2013 Overview: [facility] 02/2011- partial CBD obs s/p lap rishi [...] of this encounter (statuses as of 01/31/2024) [facility] History of Past illness Narrative* Problem Noted Date Diagnosed Date Resolved Date Acute bilateral low back laura n without sciatica 11/26/2020 01/23/2021 Contact dermatitis and other eczema due to other specified agent 10/07/2012 04/15/2016 Eczematous dermatitis 10/07/20122015 Xerosis cutis 10/07/2012 04/15/2016 Postinflammatory skin changes 10/07/2012 04/15/2016 Cholecystitis 07/15/2011 10/10/2013 Overview: [facility] 02/2011- partial CBD obs s/p lap rishi [...] of this encounter (statuses as of 02/02/2024) [facility] of Past illness Narrative* Problem Noted Date Diagnosed Date Resolved Date Acute bilateral low back laura n without sciatica 11/26/2020 01/23/2021 Contact dermatitis and other eczema due to other specified agent 10/07/2012 04/15/2016 Eczematous dermatitis 10/07/20122015 Xerosis cutis 10/07/2012 04/15/2016 Postinflammatory skin changes 10/07/2012 04/15/2016 Cholecystitis 07/15/2011 10/10/2013 Overview: [facility] 02/2011- partial CBD obs s/p lap rishi [...] of this encounter (statuses as of 02/23/2024) [facility] History of Past illness Narrative* Problem Noted Date Diagnosed Date Resolved Date Acute bilateral low back laura n without sciatica 11/26/2020 01/23/2021 Contact dermatitis and other eczema due to other specified agent 10/07/2012 04/15/2016 Eczematous dermatitis 10/07/20122015 Xerosis cutis 10/07/2012 04/15/2016 Postinflammatory skin changes 10/07/2012 04/15/2016 Cholecystitis 07/15/2011 10/10/2013 Overview: [facility] 02/2011- partial CBD obs s/p lap rishi [...] of this encounter (statuses as of 02/28/2024) [facility] History of Present illness Narrative* Lisa Stein [...] 19, 2020 4:41 PM [facility] Author [facility]. Lux [facility] April 02, 2023 4:12pm Note Date/Time April 02, 2023 3:59p m [facility] Medical Records Department [address] [place] [address] Discharge Summary 04/02/23 1558 MR#: [id number] Acct: [id number] Name: DORA BRYANT Rep #:[id number] 28 : 1945 77 From: Dana Lux DO PCP: Dr. Pastor Garcia MD Status :ADM SARIAH Location: [place] [address] Providers Date of Admission: 04/01/23 Date of [...] mg/mL subcutaneous syringe (Prolia) 60 mg subcut [id number] #1 mL 04/30/22 levothyroxine 25 mcg tablet [...] who presented to the emergency department at [facility] on 04/01/2023 with visual changes. She [...] has an eye appointment to see her editor in chief newspaper on April 05 but this worried her [...] She does have an appointment with her editor in chief newspaper on Wednesday and I encouraged her to [...] (Auto) 73.0 H, Lymph % (Auto) 18.3 L,Trimble % (Auto) 6.7, Eos % (Auto) 0.8, [...] % (Auto) 54.4, Lymph % (Auto) 32.3, Trimble % (Auto) 8.3, Eos % (Auto) 3.6, [...] 19:16 EDT Reading Location ID and State: [facility] / [place] , Service support , Echocardiogram 04/01/23 22:12 [...] Prolia 60 mg/mL syringe 60 mg subcut [id number] Qty: 1 1RF levothyroxine 25 mcg tablet [...] Self Care Charges/Coding Visit Charges Inpatient E&M: 95385 Disch Hosp 04/02/23 1613 <Electronically signed by Dana Lxu DO> Cosigner Signature (if applicable): CC: Dr. Pastor Garcia MD; Dr. Zoltan Worley MD; Dr. Dana Lux DO~ Signed [facility] Work Phone: Evaluation note* Diagnosis Chronic bilateral low back pain without sciatica- Primary Chronic pain of both hips Fall in home, initial encounter [facility] Diagnosis Vaginal irritation- Primary Unspecified noninflammatory disorder of vagina documented in this encounter [facility] note* Diagnosis Hypopituitarism (HCC)- Primary Panhypopituitarism Essential hypertension Unspecified essential hypertension Mixed hyperlipidemia [facility] this [facility]* Diagnosis Leukocytosis, unspecified type- Primary Abdominal pain, generalized [facility] Diagnosis Leukocytosis, unspecified type documented [facility] Diagnosis Neutrophilia- Primary Other specified disease of white blood cells [facility] Diagnosis Vaginal disorder- Primary Unspecified noninflammatory disorder of vagina [facility] Diagnosis Onset Date Resolution Status History of pituitary tumor c hronic Osteoporosis chronic Secondary adrenal insufficiency chronic Secondary hypothyroidism [facility] Work Phone: Evaluation note* Diagnosis Neutrophilia- Primary Other specified disease of white blood cells Leukocytosis, unspecified type documented [facility] Diagnosis Leukocytosis, unspecified type- Primary Neutrophilia Other specified disease of white blood cells Essential hypertension Unspecified essential hypertension Mixed hyperlipidemia Hypopituitarism (HCC) Panhypopituitarism Gastroesophageal reflux disease without esophagitis Esophageal reflux Stage 3a chronic kidney disease (HCC) Vaginal irritation Unspecified noninflammatory disorder of vagina documented [facility] this encounter [facility] Diagnosis Neutrophilia- Primary Other specified disease of white blood cells Leukocytosis, unspecified type [facility]* Diagnosis Fall, subsequent encounter- Primary Closed fracture of right side of maxilla with routine healing, subsequent encounter Closed fracture of orbit with routine healing, subsequent encounter Laceration of right hand without foreign body, subsequent encounter Facial laceration, subsequent encounter [facility] [facility]* Diagnosis Wrist pain, right- Primary Pain in joint, forearm Hand pain, right Pain in limb Screening mammogram for breast cancer [facility] Diagnosis Right wrist pain- Primary Pain in joint, forearm [facility]* Diagnosis Acute cough- Primary Expiratory wheezing [facility] noteNo assessment information availableWOhio[facility] Work Phone: Evaluation note* Diagnosis Hypopituitarism (HCC) Panhypopituitarism Gastroesophageal reflux disease without esophagitis Esophageal reflux [facility] Essential hypertension- Primary Unspecified essential hypertension Hypopituitarism (HCC) Panhypopituitarism Glucocorticoid deficiency (HCC) Glucocorticoid deficiency Senile osteoporosis [facility] Diagnosis Onset Date Resolution Status Vision abnormalities acute Benign essential hypertension chronic 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 Secondary adrenal insufficiency chronic [facility] Work Phone: Evaluation note* Diagnosis Pituitary adenoma (HCC)- Primary Benign neoplasm of pituitary gland and craniopharyngeal duct (pouch) [facility] Diagnosis Onset Date Resolution Status Vision abnormalities resolve d Glucocorticoid deficiency ch ronic History of pituitary tumor c hronic Osteoporosis chronic Secondary hypothyroidism chr onic [facility] Work Phone: Evaluation note* Diagnosis Vaginal discharge- Primary Leukorrhea, not specified as infective Vaginal itching Pruritus of genital organs [facility]* Diagnosis 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 Pain in zurita, right documented [facility] this [facility]* Diagnosis Colitis- Primary Other and unspecified noninfectious gastroenteritis and colitis Allergic reaction to contrast material, initial encounter Stage 3a chronic kidney disease (HCC) documented [facility] this [facility]* Diagnosis Daron infection- Primary Candidiasis of unspecified site [facility] Diagnosis Upper respiratory tract infection, unspecified type- Primary [facility]* Diagnosis Essential hypertension- Primary Unspecified essential [...] esophagitis Esophageal reflux [facility]* Diagnosis Gastroesophageal reflux disease without esophagitis Esophageal reflux [facility] this [facility]* Diagnosis Fall in home, subsequent encounter- [...] other specified site [facility] this [facility]* Diagnosis Essential hypertension- Primary Unspecified essential hypertension Stage 3a chronic kidney disease (HCC) Gastroesophageal reflux disease without esophagitis Esophageal reflux Acquired hypothyroidism Unspecified hypothyroidism Hypopituitarism (HCC) Panhypopituitarism documented in this encounter [facility] note* Diagnosis Onset Date Resolution Status Admit Date Glucocorticoid deficiency chronic May 18, 2025 10:45am History of pituitary tumor chronic May 18, 2025 10:45am Osteoporosis chronic May 18, 025 10:45am Secondary hypothyroidism chronic May 18, 2025 10:45am [facility] Work Phone: Hospital Discharge instructions Additional Instructions [...] please return to the hospital for repeat evaluationWOhio[facility] Work Phone: Reason for referral (narrative)* Diagnostic Procedure Only (Routine) - Pending Review Specialty Diagnoses / Procedures Referred By Mallory lopez Referred To Contact BR IMAGING Diagnoses Screening mammogram for breast cancer Procedures JOON SCREENING SCREENING MAMMOGRAPHY BI 2-VIEW BREAST INC CAD Elan Garcia MD [address] [place] [address] [facility] [address] [place] [id number] Referral ID Status Reason Start Date Expiration Date Visits Requested Visits Authorized [id number] Pending Review Auto-Generat ed Referral 08/17/2022 08/16/2023 1 1 * Diagnostic Procedure Only (Routine) - Closed Specialty Diagnoses / Procedures Referred By Mallory t Referred To Contact XR IMAGING Diagnoses Wrist pain, right Hand pain, right Procedures XR HAND GENERAL 3V PA/LAT/OBL RIGHT RADEX HAND MINIMUM 3 VIEWS Elan Garcia MD [address] [place] [address] Xr Imaging Referral ID Status Reason Start Date Expiration Date V isits Requested Visits Authorized [id number] Closed Auto-Generate d Referral 07/17/2022 08/16/2023 1 1 * Diagnostic Procedure Only (Routine) - Closed Specialty Diagnoses / Procedures Referred By Contac t Referred To Contact XR IMAGING Diagnoses Wrist pain, right Hand pain, right Procedures XR WRIST GENERAL 3V PA/LAT/OBL RIGHT RADEX WRIST COMPLETE MINIMUM 3 VIEWS Elan Garcia MD [address] [place] [address] Xr Imaging Referral ID Status Reason Start Date Expiration Date V isits Requested Visits Authorized [id number] Closed Auto-Generate d Referral 07/17/2022 08/16/2023 1 1 [facility] for referral (narrative)* Diagnostic Procedure Only (Routine) - Closed Specialty Diagnoses / Procedures Referred By Contac t Referred To Contact XR IMAGING Diagnoses Fall in home, subsequent encounter Closed fracture of ramus of right pubis with routine healing, subsequent encounter Procedures XR HIP GENERAL 3V PELV/AP/LAT RIGHT RADEX HIP UNILATERAL WITH PELVIS 2-3 VIEWS Elan Garcia MD [address] [place] [address] [place] [address] Referral ID Status Reason Start Date Expiration Date V isits Requested Visits Authorized [id number] Closed Auto-Generate d Referral 05/18/2024 06/12/2025 1 1 [facility] for referral (narrative)* Diagnostic Procedure Only (Urgent) - Authorized Specialty Diagnoses / Procedures Referred By Contac t Referred To Contact US IMAGING Diagnoses Pain in right lower leg Procedures US DVT LOWER RIGHT DUP-SCAN XTR VEINS UNILATERAL/LIMITED STUDY Podlogar, Edna, AUTOMOTIVE STARTER REPAIRER.MEETING MANAGER [address] [place] [address] [place] [address] Referral ID Status Reason Start Date Expiration Date Visits Requested Visits Authorized [id number] Authorized Auto-Generat ed Referral 07/31/2024 08/30/2025 1 1 [facility] for referral (narrative)* Diagnostic Procedure Only (Routine) - Closed Specialty Diagnoses / Procedures Referred By Contac t Referred To Contact XR IMAGING Diagnoses Chronic bilateral low back pain with right-sided sciatica Procedures XR LUMBAR GENERAL 3V AP/LAT/L5-S1 RADEX SPINE LUMBOSACRAL 2/3 VIEWS Elan Garcia MD [address] [place] [address] [place] [address] Referral ID Status Reason Start Date Expiration Date V isits Requested Visits Authorized [id number] Closed Auto-Generate d Referral 01/05/2024 02/03/2025 1 1 [facility] for referral (narrative)* Diagnostic Procedure Only (Urgent) - Closed Specialty Diagnoses / Procedures Referred By Contac t Referred To Contact US IMAGING Diagnoses Pain in right lower leg Procedures US DVT LOWER RIGHT DUP-SCAN XTR VEINS UNILATERAL/LIMITED STUDY PodlogarEdna APRN.MEETING MANAGER [address] [place] [address] [place] [address] Referral ID Status Reason Start Date Expiration Date V isits Requested Visits Authorized [id number] Closed Auto-Generate d Referral 07/31/2024 08/30/2025 1 1 [facility] for referral (narrative)* Diagnostic Procedure Only (Routine) - Closed Specialty Diagnoses / Procedures Referred By Contac t Referred To Contact XR IMAGING Diagnoses Rib pain on right side Procedures XR RIBS/CHEST 3V AP RIB/OBLS/CXR RIGHT RADEX RIBS UNI W/POSTEROANT CH MINIMUM 3 VIEWS Elan Garcia MD [address] [place] [address] [place] [address] Referral ID Status Reason Start Date Expiration Date V isits Requested Visits Authorized [id number] Closed Auto-Generate d Referral 12/01/2023 12/30/2024 1 1 [facility] for referral (narrative)* Diagnostic Procedure Only (Routine) - Closed Specialty Diagnoses / Procedures Referred By Contac t Referred To Contact XR IMAGING Diagnoses Wrist pain, right Hand pain, right Procedures XR HAND GENERAL 3V PA/LAT/OBL RIGHT RADEX HAND MINIMUM 3 VIEWS Elan Garcia MD [address] [place] [address] [place] [address] Referral ID Status Reason Start Date Expiration Date V isits Requested Visits Authorized [id number] Closed Auto-Generate d Referral 07/17/2022 08/16/2023 1 1 * Diagnostic Procedure Only (Routine) - Closed Specialty Diagnoses / Procedures Referred By Contac t Referred To Contact XR IMAGING Diagnoses Wrist pain, right Hand pain, right Procedures XR WRIST GENERAL 3V PA/LAT/OBL RIGHT RADEX WRIST COMPLETE MINIMUM 3 VIEWS Elan Garcia MD [address] [place] [address] [place] [address] Referral ID Status Reason Start Date Expiration Date V isits Requested Visits Authorized [id number] Closed Auto-Generate d Referral 07/17/2022 08/16/2023 1 1 [facility] for referral (narrative)* Diagnostic Procedure Only (Routine) - Closed Specialty Diagnoses / Procedures Referred By Contac t Referred To Contact XR IMAGING Diagnoses Chronic pain of both hips Procedures XR HIP BILATERAL 5V PEL/AP/LAT EACH HIP RADEX HIPS BILATERAL WITH PELVIS MINIMUM 5 VIEWS Elan Garcia MD [address] [place] [address] [place] [address] Referral ID Status Reason Start Date Expiration Date V isits Requested Visits Authorized [id number] Closed Auto-Generate d Referral 03/20/2022 2023 1 1 * Diagnostic Procedure Only (Routine) - Closed Specialty Diagnoses / Procedures Referred By Contac t Referred To Contact XR IMAGING Diagnoses Chronic bilateral low back pain without sciatica Procedures XR LUMBAR GENERAL 3V AP/LAT/L5-S1 RADEX SPINE LUMBOSACRAL 2/3 VIEWS Elan Garcia MD [address] [place] [address] [place] [address] Referral ID Status Reason Start Date Expiration Date V isits Requested Visits Authorized [id number] Closed Auto-Generate d Referral 03/20/2022 2023 1 1 [facility] for referral (narrative)No reason for referral information availableDaviess [facility] Work Phone: Reason for visit Narrative* Diagnostic Procedure Only (Routine) - Closed Specialty Diagnoses / Procedures Referred By Contac t Referred To Contact XR IMAGING Diagnoses Fall in home, subsequent encounter Closed fracture of ramus of right pubis with routine healing, subsequent encounter Procedures XR HIP GENERAL 3V PELV/AP/LAT RIGHT RADEX HIP UNILATERAL WITH PELVIS 2-3 VIEWS Elan Garcia MD [address] [place] [address] [place] [address] Referral ID Status Reason Start Date Expiration Date V isits Requested Visits Authorized [id number] Closed Auto-Generate d Referral 05/18/2024 06/12/2025 1 1 [facility] for visit Narrative* Diagnostic Procedure Only (Routine) - Closed Specialty Diagnoses / Procedures Referred By Contac t Referred To Contact XR IMAGING Diagnoses Chronic bilateral low back pain with right-sided sciatica Procedures XR LUMBAR GENERAL 3V AP/LAT/L5-S1 RADEX SPINE LUMBOSACRAL 2/3 VIEWS Elan Garcia MD [address] [place] [address] [place] [address] Referral ID Status Reason Start Date Expiration Date V isits Requested Visits Authorized [id number] Closed Auto-Generate d Referral 01/05/2024 02/03/2025 1 1 [facility] for visit Narrative* Diagnostic Procedure Only (Routine) - Closed Specialty Diagnoses / Procedures Referred By Contac t Referred To Contact XR IMAGING Diagnoses Rib pain on right side Procedures XR RIBS/CHEST 3V AP RIB/OBLS/CXR RIGHT RADEX RIBS UNI W/POSTEROANT CH MINIMUM 3 VIEWS Elan Garcia MD [facility] [place] [address] [place] [address] Referral ID Status Reason Start Date Expiration Date V isits Requested Visits Authorized [id number] Closed Auto-Generate d Referral 12/01/2023 12/30/2024 1 1 [facility] for visit Narrative* Diagnostic Procedure Only (Routine) - Closed Specialty Diagnoses / Procedures Referred By Contac t Referred To Contact XR IMAGING Diagnoses Wrist pain, right Hand pain, right Procedures XR HAND GENERAL 3V PA/LAT/OBL RIGHT RADEX HAND MINIMUM 3 VIEWS Elan Garcia MD [address] [place] [address] [place] [address] Referral ID Status Reason Start Date Expiration Date V isits Requested Visits Authorized [id number] Closed Auto-Generate d Referral 07/17/2022 08/16/2023 1 1 [facility] for visit Narrative* Diagnostic Procedure Only (Routine) - Closed Specialty Diagnoses / Procedures Referred By Contac t Referred To Contact XR IMAGING Diagnoses Chronic pain of both hips Procedures XR HIP BILATERAL 5V PEL/AP/LAT EACH HIP RADEX HIPS BILATERAL WITH PELVIS MINIMUM 5 VIEWS Elan Garcia MD [address] [place] [address] [place] [address] Referral ID Status Reason Start Date Expiration Date V isits Requested Visits Authorized [id number] Closed Auto-Generate d Referral 03/20/2022 2023 1 1 [facility] Summary Purpose Family History No Family History [...] FoundDocuments on File Type Date Recorded 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 Advance Directive(s) 06/23/2019 8:51 AM Advance Directive(s) 10/28/2018 9:24 AM Advance Directive(s) 07/21/2017 9:15 AM Documents on File Type Date Recorded 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 Advance Directive(s) 06/23/2019 8:51 AM Advance Directive(s) 10/28/2018 9:24 AM Advance Directive(s) 07/21/2017 9:15 AM Advance Directive Response Recorded Date/ Time Living Will Yes July 13 9 8:33am Power of Learning Facilitator Yes July 13 019 8:33am Advance Directive Response Recorded Date/ Time Living Will Yes June 13, 2022 12:22pm Power of Learning Facilitator Yes June 13 12:22pm Advance Directive Response Recorded Date/ Time Living Will No April 01, 2023 5 :49pm Power of Learning Facilitator No April 01, 2023 5:49pm Advance Directive Response Recorded Date/ Time Name of Medical Power of Learning Facilitator ab bryant April 01, 2023 10:20pm Living Will Yes April 01, 2023 1 0:20pm Power of Learning Facilitator Yes April 01, 2023 10:20pm Advance Directive Response Recorded Date/ Time Living Will Yes April 01, 2023 9 :20pm Power of Learning Facilitator Yes April 01, 2023 9:20pm Advance Directive Response Recorded Date/ Time Name of Medical Power of Learning Facilitator Ab Bryant . January 22, 2024 11:01pm Living Will Yes January 22, 2024 11:01pm Power of Learning Facilitator Yes January 21 11:01pm Advance Directive Response Recorded Date/ Time Living Will No May 11, 2024 4:20am Do you have a Healthcare Power of Learning Facilitator? No May 11, 2024 4:20am Reason for Referral Specialty Diagnoses / Procedures Referred By Contac t Referred To Contact Pain Management Diagnoses Chronic bilateral low back pain without sciatica Chronic pain of both hips Procedures CONSULT TO PAIN MGT OFFICE/OUTPATIENT [facility] 60-74 MINUTES Elan Garcia MD [address] [place] [address] Referral ID Status Reason Start Date Expiration Date Visits Requested Visits Authorized [id number] Authorized PCP Requested Referral 03/20/2022 03/20/2023 1 1 Specialty Diagnoses / Procedures Referred By Contac t Referred To Contact XR IMAGING Diagnoses Chronic pain of both hips Procedures XR HIP BILATERAL 5V PEL/AP/LAT EACH HIP RADEX HIPS BILATERAL WITH PELVIS MINIMUM 5 VIEWS Elan Garcia MD [address] [place] [address] Xr Imaging Referral ID Status Reason Start Date Expiration Date V isits Requested Visits Authorized [id number] Closed Auto-Generate d Referral 03/20/2022 2023 1 1 Specialty Diagnoses / Procedures Referred By Contac t Referred To Contact XR IMAGING Diagnoses Chronic bilateral low back pain without sciatica Procedures XR LUMBAR GENERAL 3V AP/LAT/L5-S1 RADEX SPINE LUMBOSACRAL 2/3 VIEWS Elan Garcia MD [address] [place] [address] Xr Imaging Referral ID Status Reason Start Date Expiration Date V isits Requested Visits Authorized [id number] Closed Auto-Generate d Referral 03/20/2022 2023 1 1 Specialty Diagnoses / Procedures Referred By Contac t Referred To Contact CT IMAGING Diagnoses Leukocytosis, unspecified type Procedures CT ABD/PEL WO IVCON CT ABD & PELVIS W/O CONTRAST Elan Garcia MD [address] [place] [address] Ct Imaging Referral ID Status Reason Start Date Expiration Date Visits Requested Visits Authorized [id number] Pending Review Auto-Genera marily Referral Patient Cleared - Admin/Chair man/Directo r advise to proceed 05/11/2022 06/10/2023 2 2 Referral ID Status Reason Start Date Expiration Date Visits Requested Visits Authorized [id number] Authorized Auto-Generat ed Referral Patient Cleared - Admin/Chairm an/Director advise to proceed 05/12/2022 06/11/2022 2 2 Specialty Diagnoses / Procedures Referred By Contac t Referred To Contact Gynecology Diagnoses Vaginal disorder Procedures CONSULT TO GYNECOLOGY OFFICE/OUTPATIENT [facility] 60-74 MINUTES Jay JaylogEdna walter APRN.CNP [address] [place] [id number] Referral ID Status Reason Start Date Expiration Date Visits Requested Visits Authorized [id number] Authorized PCP Requested Referral Auto-Generate d Referral 05/15/2022 05/15/2023 1 1 Specialty Diagnoses / Procedures Referred By Contac t Referred To Contact Hematology Diagnoses Neutrophilia Leukocytosis, unspecified type Procedures CONSULT TO HEMATOLOGY OFFICE/OUTPATIENT [facility] 60-74 MINUTES Elan Garcia MD [address] [place] [address] Referral ID Status Reason Start Date Expiration Date Visits Requested Visits Authorized [id number] Authorized PCP Requested Referral 06/03/2022 06/03/2023 1 1 Specialty Diagnoses / Procedures Referred By Contac t Referred To Contact MR IMAGING Diagnoses Right wrist pain Procedures MRI WRIST WO IVCON RT MRI ANY JT UPPER EXTREMITY W/O CONTRAST MATRL Elan Garcia MD [address] [place] [address] Mr Imaging Referral ID Status Reason Start Date Expiration Date Visits Requested Visits Authorized [id number] Pending Review Auto-Generat ed Referral 07/20/2022 08/19/2023 1 1 Specialty Diagnoses / Procedures Referred By Contac t Referred To Contact [facility] Diagnoses Chronic bilateral low back pain with right-sided sciatica Procedures CONSULT TO PHYSICAL THERAPY PHYSICAL THERAPY EVALUATION HIGH COMPLEX 45 MINS Elan Garcia MD [facility] [place] [address] [facility] [address] [address] Referral ID Status Reason Start Date Expiration Date Visits Requested Visits Authorized [id number] Pending Review Auto-Generat ed Referral 01/05/2024 01/04/2025 1 1 Specialty Diagnoses / Procedures Referred By Contac t Referred To Contact XR IMAGING Diagnoses Chronic bilateral low back pain with right-sided sciatica Procedures XR LUMBAR GENERAL 3V AP/LAT/L5-S1 RADEX SPINE LUMBOSACRAL 2/3 VIEWS Elan Garcia MD [address] [place] [address] [place] [address] Referral ID Status Reason Start Date Expiration Date V isits Requested Visits Authorized [id number] Closed Auto-Generate d Referral 01/05/2024 02/03/2025 1 [...] HIGH COMPLEX 45 MINS Elan Garcia MD [address] [place] [address] [facility] [address] [address] Referral ID Status Reason Start Date Expiration Date Visits Requested Visits Authorized [id number] Pending Review Auto-Generat ed Referral 05/13/2024 05/13/2025 1 1 Specialty Diagnoses / Procedures Referred By Contac t Referred To Contact XR IMAGING Diagnoses Fall in home, subsequent encounter Closed fracture of ramus of right pubis with routine healing, subsequent encounter Procedures XR HIP GENERAL 3V PELV/AP/LAT RIGHT RADEX HIP UNILATERAL WITH PELVIS 2-3 VIEWS Elan Garcia MD [facility] [place] [address] [place] [address] Referral ID Status Reason Start Date Expiration Date Visits Requested Visits Authorized [id number] Authorized Auto-Generat ed Referral 05/18/2024 06/12/2025 1 [...] Howard, PT, DPT [facility] [address] [address] Referral ID Status Reason Start Date Expiration Date Visits Requested Visits Authorized [id number] Waiting for Online Response PCP Requested Referral Auto-Generate d Referral 06/01/2024 11/21/2024 8 8 Specialty Diagnoses / Procedures Referred By Mallory t Referred To Contact [facility] Diagnoses Acute left-sided low back pain with left-sided sciatica Procedures CONSULT TO PHYSICAL THERAPY PHYSICAL THERAPY EVALUATION HIGH COMPLEX 45 MINS 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, 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 [address] [place] [address] [facility] [address] [address] Referral ID Status Reason Start Date Expiration Date Visits Requested Visits Authorized [id number] Pending Review Auto-Generat ed Referral 09/25/2024 09/25/2025 1 1 Chief Complaint and Reason for Visit Chief Complaint Admit Date 6 M FU May 18, 2025 10:4 5am LOWER BACK PAIN THORACIC AND NECK PAIN [facility] 2024 4:31pm Reason for Visit Admit [...] section and content) DATE CREATED AUTHOR 11/01/2018 [facility] DATE CREATED AUTHOR AUTHOR'S ORGANIZ ATION 12/14/2024 [facility] DATE CREATED AUTHOR AUTHOR'S ORGANIZ ATION [facility] Source Comments (unrecognize d section and content) In the event this informatio n is protected by the Federal Confidentiality of Alcohol and Drug Abuse Patient Records regulations: The Federal rules restrict any use of the information to criminally investigate or prosecute any alcohol or drug abuse patient.[facility] the event this information is protected by the Federal Confidentiality of Alcohol and Drug Abuse Patient Records regulations: The Federal rules restrict any use of the information to criminally investigate or prosecute any alcohol or drug abuse patient.[facility] Center[facility] the event this information is protected by the Federal Confidentiality of Alcohol and Drug Abuse Patient Records regulations: The Federal rules restrict any use of the information to criminally investigate or prosecute any alcohol or drug abuse patient.[facility] Center[facility] the event this information is protected by the Federal Confidentiality of Alcohol and Drug Abuse Patient Records regulations: The Federal rules restrict any use of the information to criminally investigate or prosecute any alcohol or drug abuse patient.[facility] CenterIn the event this information is protected by the Federal Confidentiality of Alcohol and Drug Abuse Patient Records regulations: The Federal rules restrict any use of the information to criminally investigate or prosecute any alcohol or drug abuse patient.[facility] Center[facility] the event this information is protected by the Federal Confidentiality of Alcohol and Drug Abuse Patient Records regulations: The Federal rules restrict any use of the information to criminally investigate or prosecute any alcohol or drug abuse patient.[facility] Center[facility] the event this information is protected by the Federal Confidentiality of Alcohol and Drug Abuse Patient Records regulations: The Federal rules restrict any use of the information to criminally investigate or prosecute any alcohol or drug abuse patient.[facility] CenterIn the event this information is protected by the Federal Confidentiality of Alcohol and Drug Abuse Patient Records regulations: The Federal rules restrict any use of the information to criminally investigate or prosecute any alcohol or drug abuse patient.[facility] CenterIn the event this information is protected by the Federal Confidentiality of Alcohol and Drug Abuse Patient Records regulations: The Federal rules restrict any use of the information to criminally investigate or prosecute any alcohol or drug abuse patient.[facility] CenterIn the event this information is protected by the Federal Confidentiality of Alcohol and Drug Abuse Patient Records regulations: The Federal rules restrict any use of the information to criminally investigate or prosecute any alcohol or drug abuse patient.[facility] CenterIn the event this information is protected by the Federal Confidentiality of Alcohol and Drug Abuse Patient Records regulations: The Federal rules restrict any use of the information to criminally investigate or prosecute any alcohol or drug abuse patient.[facility] CenterIn the event this information is protected by the Federal Confidentiality of Alcohol and Drug Abuse Patient Records regulations: The Federal rules restrict any use of the information to criminally investigate or prosecute any alcohol or drug abuse patient.[facility] CenterIn the event this information is protected by the Federal Confidentiality of Alcohol and Drug Abuse Patient Records regulations: The Federal rules restrict any use of the information to criminally investigate or prosecute any alcohol or drug abuse patient.[facility] CenterIn the event this information is protected by the Federal Confidentiality of Alcohol and Drug Abuse Patient Records regulations: The Federal rules restrict any use of the information to criminally investigate or prosecute any alcohol or drug abuse patient.[facility] CenterIn the event this information is protected by the Federal Confidentiality of Alcohol and Drug Abuse Patient Records regulations: The Federal rules restrict any use of the information to criminally investigate or prosecute any alcohol or drug abuse patient.[facility] CenterIn the event this information is protected by the Federal Confidentiality of Alcohol and Drug Abuse Patient Records regulations: The Federal rules restrict any use of the information to criminally investigate or prosecute any alcohol or drug abuse patient.[facility] CenterIn the event this information is protected by the Federal Confidentiality of Alcohol and Drug Abuse Patient Records regulations: The Federal rules restrict any use of the information to criminally investigate or prosecute any alcohol or drug abuse patient.[facility] CenterIn the event this information is protected by the Federal Confidentiality of Alcohol and Drug Abuse Patient Records regulations: The Federal rules restrict any use of the information to criminally investigate or prosecute any alcohol or drug abuse patient.[facility] CenterIn the event this information is protected by the Federal Confidentiality of Alcohol and Drug Abuse Patient Records regulations: The Federal rules restrict any use of the information to criminally investigate or prosecute any alcohol or drug abuse patient.[facility] CenterIn the event this information is protected by the Federal Confidentiality of Alcohol and Drug Abuse Patient Records regulations: The Federal rules restrict any use of the information to criminally investigate or prosecute any alcohol or drug abuse patient.[facility] CenterIn the event this information is protected by the Federal Confidentiality of Alcohol and Drug Abuse Patient Records regulations: The Federal rules restrict any use of the information to criminally investigate or prosecute any alcohol or drug abuse patient.[facility] CenterIn the event this information is protected by the Federal Confidentiality of Alcohol and Drug Abuse Patient Records regulations: The Federal rules restrict any use of the information to criminally investigate or prosecute any alcohol or drug abuse patient.[facility] CenterIn the event this information is protected by the Federal Confidentiality of Alcohol and Drug Abuse Patient Records regulations: The Federal rules restrict any use of the information to criminally investigate or prosecute any alcohol or drug abuse patient.[facility] CenterIn the event this information is protected by the Federal Confidentiality of Alcohol and Drug Abuse Patient Records regulations: The Federal rules restrict any use of the information to criminally investigate or prosecute any alcohol or drug abuse patient.[facility] CenterIn the event this information is protected by the Federal Confidentiality of Alcohol and Drug Abuse Patient Records regulations: The Federal rules restrict any use of the information to criminally investigate or prosecute any alcohol or drug abuse patient.[facility] CenterIn the event this information is protected by the Federal Confidentiality of Alcohol and Drug Abuse Patient Records regulations: The Federal rules restrict any use of the information to criminally investigate or prosecute any alcohol or drug abuse patient.[facility] CenterIn the event this information is protected by the Federal Confidentiality of Alcohol and Drug Abuse Patient Records regulations: The Federal rules restrict any use of the information to criminally investigate or prosecute any alcohol or drug abuse patient.[facility] CenterIn the event this information is protected by the Federal Confidentiality of Alcohol and Drug Abuse Patient Records regulations: The Federal rules restrict any use of the information to criminally investigate or prosecute any alcohol or drug abuse patient.[facility] CenterIn the event this information is protected by the Federal Confidentiality of Alcohol and Drug Abuse Patient Records regulations: The Federal rules restrict any use of the information to criminally investigate or prosecute any alcohol or drug abuse patient.[facility] CenterIn the event this information is protected by the Federal Confidentiality of Alcohol and Drug Abuse Patient Records regulations: The Federal rules restrict any use of the information to criminally investigate or prosecute any alcohol or drug abuse patient.[facility] CenterIn the event this information is protected by the Federal Confidentiality of Alcohol and Drug Abuse Patient Records regulations: The Federal rules restrict any use of the information to criminally investigate or prosecute any alcohol or drug abuse patient.[facility] CenterIn the event this information is protected by the Federal Confidentiality of Alcohol and Drug Abuse Patient Records regulations: The Federal rules restrict any use of the information to criminally investigate or prosecute any alcohol or drug abuse patient.[facility] CenterIn the event this information is protected by the Federal Confidentiality of Alcohol and Drug Abuse Patient Records regulations: The Federal rules restrict any use of the information to criminally investigate or prosecute any alcohol or drug abuse patient.[facility] CenterIn the event this information is protected by the Federal Confidentiality of Alcohol and Drug Abuse Patient Records regulations: The Federal rules restrict any use of the information to criminally investigate or prosecute any alcohol or drug abuse patient.[facility] CenterIn the event this information is protected by the Federal Confidentiality of Alcohol and Drug Abuse Patient Records regulations: The Federal rules restrict any use of the information to criminally investigate or prosecute any alcohol or drug abuse patient.[facility] CenterIn the event this information is protected by the Federal Confidentiality of Alcohol and Drug Abuse Patient Records regulations: The Federal rules restrict any use of the information to criminally investigate or prosecute any alcohol or drug abuse patient.[facility] CenterIn the event this information is protected by the Federal Confidentiality of Alcohol and Drug Abuse Patient Records regulations: The Federal rules restrict any use of the information to criminally investigate or prosecute any alcohol or drug abuse patient.[facility] CenterIn the event this information is protected by the Federal Confidentiality of Alcohol and Drug Abuse Patient Records regulations: The Federal rules restrict any use of the information to criminally investigate or prosecute any alcohol or drug abuse patient.[facility] CenterIn the event this information is protected by the Federal Confidentiality of Alcohol and Drug Abuse Patient Records regulations: The Federal rules restrict any use of the information to criminally investigate or prosecute any alcohol or drug abuse patient.[facility] CenterIn the event this information is protected by the Federal Confidentiality of Alcohol and Drug Abuse Patient Records regulations: The Federal rules restrict any use of the information to criminally investigate or prosecute any alcohol or drug abuse patient.[facility] CenterIn the event this information is protected by the Federal Confidentiality of Alcohol and Drug Abuse Patient Records regulations: The Federal rules restrict any use of the information to criminally investigate or prosecute any alcohol or drug abuse patient.[facility] CenterIn the event this information is protected by the Federal Confidentiality of Alcohol and Drug Abuse Patient Records regulations: The Federal rules restrict any use of the information to criminally investigate or prosecute any alcohol or drug abuse patient.[facility] CenterIn the event this information is protected by the Federal Confidentiality of Alcohol and Drug Abuse Patient Records regulations: The Federal rules restrict any use of the information to criminally investigate or prosecute any alcohol or drug abuse patient.[facility] CenterIn the event this information is protected by the Federal Confidentiality of Alcohol and Drug Abuse Patient Records regulations: The Federal rules restrict any use of the information to criminally investigate or prosecute any alcohol or drug abuse patient.[facility] CenterIn the event this information is protected by the Federal Confidentiality of Alcohol and Drug Abuse Patient Records regulations: The Federal rules restrict any use of the information to criminally investigate or prosecute any alcohol or drug abuse patient.[facility] CenterIn the event this information is protected by the Federal Confidentiality of Alcohol and Drug Abuse Patient Records regulations: The Federal rules restrict any use of the information to criminally investigate or prosecute any alcohol or drug abuse patient.[facility] CenterIn the event this information is protected by the Federal Confidentiality of Alcohol and Drug Abuse Patient Records regulations: The Federal rules restrict any use of the information to criminally investigate or prosecute any alcohol or drug abuse patient.[facility] CenterIn the event this information is protected by the Federal Confidentiality of Alcohol and Drug Abuse Patient Records regulations: The Federal rules restrict any use of the information to criminally investigate or prosecute any alcohol or drug abuse patient.[facility] CenterIn the event this information is protected by the Federal Confidentiality of Alcohol and Drug Abuse Patient Records regulations: The Federal rules restrict any use of the information to criminally investigate or prosecute any alcohol or drug abuse patient.[facility] CenterIn the event this information is protected by the Federal Confidentiality of Alcohol and Drug Abuse Patient Records regulations: The Federal rules restrict any use of the information to criminally investigate or prosecute any alcohol or drug abuse patient.[facility] CenterIn the event this information is protected by the Federal Confidentiality of Alcohol and Drug Abuse Patient Records regulations: The Federal rules restrict any use of the information to criminally investigate or prosecute any alcohol or drug abuse patient.[facility] CenterIn the event this information is protected by the Federal Confidentiality of Alcohol and Drug Abuse Patient Records regulations: The Federal rules restrict any use of the information to criminally investigate or prosecute any alcohol or drug abuse patient.[facility] CenterIn the event this information is protected by the Federal Confidentiality of Alcohol and Drug Abuse Patient Records regulations: The Federal rules restrict any use of the information to criminally investigate or prosecute any alcohol or drug abuse patient.[facility] CenterIn the event this information is protected by the Federal Confidentiality of Alcohol and Drug Abuse Patient Records regulations: The Federal rules restrict any use of the information to criminally investigate or prosecute any alcohol or drug abuse patient.[facility] CenterIn the event this information is protected by the Federal Confidentiality of Alcohol and Drug Abuse Patient Records regulations: The Federal rules restrict any use of the information to criminally investigate or prosecute any alcohol or drug abuse patient.[facility] CenterIn the event this information is protected by the Federal Confidentiality of Alcohol and Drug Abuse Patient Records regulations: The Federal rules restrict any use of the information to criminally investigate or prosecute any alcohol or drug abuse patient.[facility] CenterIn the event this information is protected by the Federal Confidentiality of Alcohol and Drug Abuse Patient Records regulations: The Federal rules restrict any use of the information to criminally investigate or prosecute any alcohol or drug abuse patient.[facility] CenterIn the event this information is protected by the Federal Confidentiality of Alcohol and Drug Abuse Patient Records regulations: The Federal rules restrict any use of the information to criminally investigate or prosecute any alcohol or drug abuse patient.[facility] CenterIn the event this information is protected by the Federal Confidentiality of Alcohol and Drug Abuse Patient Records regulations: The Federal rules restrict any use of the information to criminally investigate or prosecute any alcohol or drug abuse patient.[facility] CenterIn the event this information is protected by the Federal Confidentiality of Alcohol and Drug Abuse Patient Records regulations: The Federal rules restrict any use of the information to criminally investigate or prosecute any alcohol or drug abuse patient.[facility] CenterIn the event this information is protected by the Federal Confidentiality of Alcohol and Drug Abuse Patient Records regulations: The Federal rules restrict any use of the information to criminally investigate or prosecute any alcohol or drug abuse patient.[facility] CenterIn the event this information is protected by the Federal Confidentiality of Alcohol and Drug Abuse Patient Records regulations: The Federal rules restrict any use of the information to criminally investigate or prosecute any alcohol or drug abuse patient.[facility] CenterIn the event this information is protected by the Federal Confidentiality of Alcohol and Drug Abuse Patient Records regulations: The Federal rules restrict any use of the information to criminally investigate or prosecute any alcohol or drug abuse patient.[facility] CenterIn the event this information is protected by the Federal Confidentiality of Alcohol and Drug Abuse Patient Records regulations: The Federal rules restrict any use of the information to criminally investigate or prosecute any alcohol or drug abuse patient.[facility] CenterIn the event this information is protected by the Federal Confidentiality of Alcohol and Drug Abuse Patient Records regulations: The Federal rules restrict any use of the information to criminally investigate or prosecute any alcohol or drug abuse patient.[facility] CenterIn the event this information is protected by the Federal Confidentiality of Alcohol and Drug Abuse Patient Records regulations: The Federal rules restrict any use of the information to criminally investigate or prosecute any alcohol or drug abuse patient.[facility] CenterIn the event this information is protected by the Federal Confidentiality of Alcohol and Drug Abuse Patient Records regulations: The Federal rules restrict any use of the information to criminally investigate or prosecute any alcohol or drug abuse patient.[facility] Reason for Visit (unrecogniz ed section and [...] & PELVIS W/O CONTRAST Elan Garcia MD [address] [place] [address] Ct Imaging Referral ID Status Reason Start Date Expiration Date Visits Requested Visits Authorized [id number] Authorized Auto-Generat ed Referral Patient Cleared - Admin/Chairm an/Director advise to proceed 05/12/2022 06/11/2022 2 2 Reason Comments Orders Reason Comments F/U 6 months Reason Comments New Patient Evaluation Specialty Diagnoses / Procedures Referred By Mallory lopez Referred To Contact Hematology Diagnoses Neutrophilia Leukocytosis, unspecified type Procedures CONSULT TO HEMATOLOGY OFFICE/OUTPATIENT NEW HIGH MDM 60-74 MINUTES Elan Garcia MD [address] [place] [address] Referral ID Status Reason Start Date Expiration Date V isits Requested Visits Authorized [id number] Closed PCP Requested Referral 06/03/2022 06/03/2023 1 [...] HIGH COMPLEX 45 MINS Elan Garcia MD [address] [place] [address] [facility] [address] [place] [address] Referral ID Status Reason Start Date Expiration Date V isits Requested Visits Authorized [id number] Closed Auto-Generate d Referral 11/22/2023 11/21/2024 1 [...] Howard, PT, DPT [facility] [address] [place] [address] Referral ID Status Reason Start Date Expiration Date Visits Requested Visits Authorized [id number] Authorized PCP Requested Referral Auto-Generate d Referral [...] DUP-SCAN XTR VEINS UNILATERAL/LIMITED STUDY [employer], SHELLY Bishop.MEETING MANAGER [address] [place] [address] [place] [address] Referral ID Status Reason Start Date Expiration Date V isits Requested Visits Authorized [id number] Closed Auto-Generate d Referral 07/31/2024 08/30/2025 1 1 Reason Onset Date Comments Refill Request 08/23/2024 Reason Comments Follow Up 6 month Reason Comments Recheck Low back pain Reason Comments Follow Up Reason Onset Date Comments Population Health Navigation Outreach 11/13/2024 [employer] AW[employer] Initiative Reason Comments Medication Question Care Teams (unrecognized sec tion and content) Financial Sales Representative Relationship Specialty Start Date End Date Elan Garcia MD [address], [place] [id number] PCP - General Family Practice 10/23/20 Financial Sales Representative Relationship Specialty Start Date End Date Elan Garcia MD [address] [place] [address] PCP - General Family Practice 10/23/20 Financial Sales Representative Relationship Specialty Start Date End Date Elan Garcia MD [address] [place] [address] PCP - General Family Practice 10/23/20 Financial Sales Representative Relationship Specialty Start Date End Date Elan Garcia MD [address] [place] [address] PCP - General Family Practice 10/23/20 Financial Sales Representative Relationship Specialty Start Date End Date Elan Garcia MD [address] [place] [address] PCP - General Family Practice 10/23/20 Financial Sales Representative Relationship Specialty Start Date End Date Elan Garcia MD [address] [place] [address] PCP - General Family Practice 10/23/20 Financial Sales Representative Relationship Specialty Start Date End Date Elan Garcia MD [address] [place] [address] PCP - General Family Practice 10/23/20 Financial Sales Representative Relationship Specialty Start Date End Date Elan Garcia MD [address] [place] [address] PCP - General Family Practice 10/23/20 Financial Sales Representative Relationship Specialty Start Date End Date Elan Garcia MD [address] [place] [address] PCP - General Family Practice 10/23/20 Financial Sales Representative Relationship Specialty Start Date End Date Elan Garcia MD [address] [place] [address] PCP - General Family Practice 10/23/20 Financial Sales Representative Relationship Specialty Start Date End Date Elan Garcia MD [address] [place] [address] PCP - General Family Practice 10/23/20 Financial Sales Representative Relationship Specialty Start Date End Date Elan Garcia MD [address] [place] [address] PCP - General Family Practice 10/23/20 Financial Sales Representative Relationship Specialty Start Date End Date Elan Garcia MD [address] [place] [address] PCP - General Family Practice 10/23/20 Financial Sales Representative Relationship Specialty Start Date End Date Elan Garcia MD [address] [place] [address] PCP - General Family Medicine 10/23/20 Financial Sales Representative Relationship Specialty Start Date End Date Elan Garcia MD [address] [place] [address] PCP - General Family Medicine 10/23/20 Financial Sales Representative Relationship Specialty Start Date End Date Elan Garcia MD [address] [place] [address] PCP - General Family Medicine 10/23/20 Financial Sales Representative Relationship Specialty Start Date End Date Elan Garcia MD [address] [place] [address] PCP - General Family Medicine 10/23/20 Financial Sales Representative Relationship Specialty Start Date End Date Elan Garcia MD [address] [place] [address] PCP - General Family Medicine 10/23/20 Financial Sales Representative Relationship Specialty Start Date End Date Elan Garcia MD [address] [place] [address] PCP - General Family Medicine 10/23/20 Team [...] Active Member Role Status Dates Dr. Pastor Gacria MD Primary Care Provider Acti ve Dr. [...] Dr. Dana Lux DO Attending Provider Active Financial Sales Representative Relationship Specialty Start Date End Date Elan Garcia MD [address], [place] [id number] PCP - General Family Medicine 10/23/20 Team [...] Primary Care Provider Acti ve Dr. Lei uSng MD Attending Provider Active Team Status: Inactive Member Role Status Dates Dr. Pastor Garcia MD Primary Care Provider Acti ve Dr. Lei Sung MD Attending Provider Active Team Status: Inactive Member Role Status Dates Dr. Pastor Garcia MD Primary Care Provider Acti ve Dr. Lei Sung MD Attending Provider, Referring Provi cresencio Active Alejandra Ascencio WELL DRILL OPERATOR HELPER CABLE TOOL-C Other Provider Active Financial Sales Representative Relationship Specialty Start Date End Date Elan Garcia MD [address] [place] [address] PCP - General Family Medicine 10/23/20 Financial Sales Representative Relationship Specialty Start Date End Date Elan Garcia MD [address] [place] [address] PCP - General Family Medicine 10/23/20 Financial Sales Representative Relationship Specialty Start Date End Date Elan Garcia MD [address] [place] [address] PCP - General Family Medicine 10/23/20 Team Status: Inactive Member Role Status Dates Dr. Pastor Garcia MD Primary Care Provider Acti ve Dr. Juan Liu MD Attending Provider Active Team Status: Inactive Member Role Status Dates Dr. Pastor Garcia MD Primary Care Provider Acti ve Dr. Kyle Torres DO Emergency Provider Active Financial Sales Representative Relationship Specialty Start Date End Date Elan Garcia MD [address] [place] [address] PCP - General Family Medicine 10/23/20 Financial Sales Representative Relationship Specialty Start Date End Date Elan Garcia MD [address] [place] [address] PCP - General Family Medicine 10/23/20 Financial Sales Representative Relationship Specialty Start Date End Date Elan Garcia MD [address] [place] [address] PCP - General Family Medicine 10/23/20 Financial Sales Representative Relationship Specialty Start Date End Date Elan Garcia MD [address] [place] [address] PCP - General Family Medicine 10/23/20 Financial Sales Representative Relationship Specialty Start Date End Date Elan Garcia MD [address] [place] [address] PCP - General Family Medicine 10/23/20 Financial Sales Representative Relationship Specialty Start Date End Date Elan Garcia MD [address] [place] [address] PCP - General Family Medicine 10/23/20 Financial Sales Representative Relationship Specialty Start Date End Date Elan Garcia MD [address] [place] [address] PCP - General Family Medicine 10/23/20 Financial Sales Representative Relationship Specialty Start Date End Date Elan Garcia MD [address] [place] [address] PCP - General Family Medicine 10/23/20 Financial Sales Representative Relationship Specialty Start Date End Date Elan Garcia MD [address] [place] [address] PCP - General Family Medicine 10/23/20 Financial Sales Representative Relationship Specialty Start Date End Date Elan Garcia MD [address] [place] [address] PCP - General Family Medicine 10/23/20 Financial Sales Representative Relationship Specialty Start Date End Date Elan Garcia MD [address] [place] [address] PCP - General Family Medicine 10/23/20 Financial Sales Representative Relationship Specialty Start Date End Date Elan Garcia MD [address] [place] [address] PCP - General Family Medicine 10/23/20 Financial Sales Representative Relationship Specialty Start Date End Date Elan Garcia MD [address] [place] [address] PCP - General Family Medicine 10/23/20 Financial Sales Representative Relationship Specialty Start Date End Date Elan Garcia MD [address] [place] [address] PCP - General Family Medicine 10/23/20 Financial Sales Representative Relationship Specialty Start Date End Date Elan Garcia MD [address] [place] [address] PCP - General Family Medicine 10/23/20 Financial Sales Representative Relationship Specialty Start Date End Date Elan Garcia MD [address] [place] [address] PCP - General Family Medicine 10/23/20 Financial Sales Representative Relationship Specialty Start Date End Date Elan Garcia MD [address] [place] [address] PCP - General Family Medicine 10/23/20 Financial Sales Representative Relationship Specialty Start Date End Date Elan Garcia MD [address] [place] [address] PCP - General Family Medicine 10/23/20 Financial Sales Representative Relationship Specialty Start Date End Date Elan Garcia MD [address] [place] [address] PCP - General Family Medicine 10/23/20 Financial Sales Representative Relationship Specialty Start Date End Date Elan Garcia MD [address] [place] [address] PCP - General Family Medicine 10/23/20 Financial Sales Representative Relationship Specialty Start Date End Date Elan Garcia MD [address] [place] [address] PCP - General Family Medicine 10/23/20 Financial Sales Representative Relationship Specialty Start Date End Date Elan Garcia MD [address] [place] [address] PCP - General Family Medicine 10/23/20 Financial Sales Representative Relationship Specialty Start Date End Date Elan Garcia MD [address] [place] [address] PCP - General Family Medicine 10/23/20 Edna Loco APRN.CNP [address] [place] [address] Research Phlebotomist Family Medicine 10/28/24 Financial Sales Representative Relationship Specialty Start Date End Date Elan Garcia MD [address] [place] [address] PCP - General Family Medicine 10/23/20 PodlogarEdna APRN.MEETING MANAGER [address] [place] [address] Research Phlebotomist Family [facility] 10/28/24 Financial Sales Representative Relationship Specialty Start Date End Date Elan Garcia MD [address] [facility] [place] [address] PCP - General Family Medicine 10/23/20 PodlogarEdna APRN.MEETING MANAGER [address] [place] [place] [address] Research Phlebotomist [facility] 10/28/24 Team Status: Active Member Role/Relationship Status [...] BE BASED ON THE PRIMARY CLINICAL RECORDS. [facility] [employer] provides no warranty or guarantee of the accuracy or completeness of information in this document.
[2025-06-06 00:40] LABS: Xtra Tube Kwok EXTRA TUBE
== END | disposition home or self-care (01) ==
LOC: POLAB3 16:37
PROVIDERS: PCP Family Medicine Geriatric Medicine; Visit Provider Family Medicine Geriatric Medicine
DX: R30.0 Dysuria (principal); N18.32 Chronic kidney disease, stage 3b; E03.9 Hypothyroidism, unspecified; R22.43 Localized swelling, mass and lump, lower limb, bilateral
CPT/HCPCS: 36415; 80053; 81001; 83880; 84443; 85025; 87086; 87088

== ENCOUNTER → 2025-06-06 | Outpatient (CLI) | payer MEDICARE, SELFPAY ==
--- NOTE | 2025-06-06 13:07 | CT_ITS ---
EXAM: CT Abdomen and Pelvis Without Intravenous Contrast CLINICAL INDICATION: KIDNEY STONE TECHNIQUE: Axial computed tomography images of the abdomen and pelvis without intravenous contrast. This CT exam was performed using one or more of the following dose reduction techniques: automated exposure control, adjustment of the mA and/or kV according to patient size, and/or use of iterative reconstruction technique. COMPARISON: No relevant prior studies available. FINDINGS: LUNG BASES: Unremarkable. No mass. No consolidation. MEDIASTINUM: Small esophageal hiatal hernia. ABDOMEN: LIVER: Fatty infiltration of the liver. GALLBLADDER AND BILE DUCTS: Unremarkable. No calcified stones. No ductal dilation. PANCREAS: Unremarkable. No ductal dilation. SPLEEN: Unremarkable. No splenomegaly. ADRENALS: Unremarkable. No mass. KIDNEYS AND URETERS: Unremarkable. No stones within either kidney. No hydronephrosis. STOMACH AND BOWEL: Unremarkable. No obstruction. No mucosal thickening. PELVIS: APPENDIX: No findings to suggest acute appendicitis. BLADDER: Unremarkable. No stones. REPRODUCTIVE: Unremarkable as visualized. ABDOMEN and PELVIS: INTRAPERITONEAL SPACE: Unremarkable. No free air. No significant fluid collection. BONES/JOINTS: No acute fracture. No dislocation. SOFT TISSUES: Unremarkable. VASCULATURE: Scattered calcified atherosclerotic disease of aorta. No abdominal aortic aneurysm. LYMPH NODES: Unremarkable. No enlarged lymph nodes. CT/Abdomen/Pelvis without Cont IMPRESSION: 1. Small esophageal hiatal hernia. 2. No obstructive uropathy. Reading Location: [facility]
== END | disposition home or self-care (01) ==
LOC: CT 13:03
PROVIDERS: PCP Family Medicine Geriatric Medicine; Referring Provider Family Medicine Geriatric Medicine; Visit Provider Family Medicine Geriatric Medicine
DX: N20.0 Calculus of kidney (principal)
CPT/HCPCS: 74176

== ENCOUNTER → 2025-06-08 | Outpatient (CLI) | payer MEDICARE, SELFPAY ==
--- NOTE | 2025-06-08 11:43 | US_ITS ---
PROCEDURE: KIDNEY AND BLADDER 06/08/2025 REASON FOR EXAM: CHRONIC KIDNEY DISEASE, STAGE 3B TECHNIQUE: KIDNEY AND BLADDER COMPARISON: Prior CT scan dated June 06, 2025. FINDINGS: Kidneys: Normal renal sizes, parenchymal thicknesses, and echotextures. Hedrick: No evidence of hydronephrosis. Cysts or Masses: There is a 1.7 cm 1.5 cm 1.5 cm cyst in the upper pole of the right kidney. RIGHT Kidney Size: 9.6 cm x 4.6 cm x 4.6 cm Volume: 105.75 mL Cortical Thickness (if discernible): 14 mm (>6mm is normal) LEFT Kidney Size: 8.4 cm x 4.3 cm x 4.5 cm Volume: 85.62 mL Cortical Thickness (if discernible): 10 mm (>6mm is normal) US/Kidney and Bladder IMPRESSION: NORMAL RENAL ULTRASOUND. Incidental note is made of a 1.7 cm 1.5 cm x 1.5 cm cyst in the upper midportio n of the right kidney. Reading Location: [place] [id number]
== END | disposition home or self-care (01) ==
LOC: US 11:41
PROVIDERS: PCP Family Medicine Geriatric Medicine; Referring Provider Family Medicine Geriatric Medicine; Visit Provider Family Medicine Geriatric Medicine
DX: N18.32 Chronic kidney disease, stage 3b (principal)
CPT/HCPCS: 76770

== ENCOUNTER → 2025-06-19 | Outpatient (CLI) | payer MEDICARE, SELFPAY ==
--- NOTE | 2025-06-19 13:06 | MRI_ITS ---
EXAM: BRAIN W/WO CONTRAST CLINICAL HISTORY: PITUITARY PROTOCOL, pituitary tumor COMPARISON: April 02, 2023. TECHNIQUE: Multiplanar, multisequence MR images of the brain were obtained without gadolinium contrast material. FINDINGS: No intracranial hemorrhage, mass, mass effect, midline shift or pathologic extra- axial fluid collection. No hydrocephalus. There is abnormal increased T2 signal and FLAIR signal in the deep white matter on the right and left with moderate bilateral white matter disease. No areas of restricted diffusion to suggest acute ischemia or infarction. No gradient signal blooming artifacts are identified. No cerebellar tonsillar ectopia. Pituitary:. There is a high T2, low T1, nonenhancing cyst in the pituitary fossa measuring 1.5 x 1 point 5 by 1.3 cm with a slightly lobulated margin, with effacement of the clivus and expansion of the pituitary fossa, similar to the prior. There is a low T2, low postcontrast T1 signal solid component in the anterior left aspect of the pituitary fossa measuring 0.4 by 0.5 by 0.4 cm, axial image 7/26, coronal image 10/15. Postcontrast images show displacement of the infundibulum to the right aspect of the pituitary with mild enhancement of the infundibulum, similar to the prior. The ocular globes and intraorbital soft tissues are symmetrically unremarkable. Paranasal sinuses are essentially clear. There is fluid signal in a portion of the right and left mastoid air cells. MRI/Brain W/WO Contrast IMPRESSION: There is abnormal increased T2 signal and FLAIR signal in the deep white matter on the right and left with moderate bilateral white matter disease, similar to the prior. There is a high T2, low T1, nonenhancing cyst in the pituitary fossa measuring 1.5 x 1 point 5 by 1.3 cm with a slightly lobulated margin, with effacement of the clivus and expansion of the pituitary fossa, similar to the prior. There is a low T2, low postcontrast T1 signal solid component in the anterior left aspect of the p ituitary fossa measuring 0.4 by 0.5 by 0.4 cm, axial image 7/26, coronal image 10/15. Postcontrast images show displacement o f the infundibulum to the right aspect of the pituitary with mild enhancement of the infundibulum, similar to the prior. The re is no significant interval change. There is fluid signal in a portion of the right and left mastoid air cells, sim ilar to the prior. Reading Location: [place]
--- OUTSIDE RECORDS SUMMARY | 2025-06-19 22:26 | XMS RPT_ITS | CCD ---
Author Organization [facility] CliniSyut Care Team Providers Care Rag Inspector Name Role Phone LEONARD JUSTICE Unavailable Unavailable LEONARD JUSTICE Unavailable Unavailable Elan Garcia MD Primary Care Provider Dr. Kasey Bashir Primary Care Provider Dr. Kasey Bashir Referring Provider Dr. Lei Sung Attending Provider Elan Garcia MD Primary Care Provider Elan Garcia MD Primary Care Provider Elan Garcia MD Primary Care Provider Dr. Pastor Garcia Primary Care Provider Dr. Cory Anaya Emergency Provider Dr. Erik [...] Dr. Pastor Garcia Primary Care Provider [phone] Dr. Juan Liu Attending Provider Elan Garcia MD Primary Care Provider Podlogar ASSISTANT PROFESSOR SURGICAL TECHNOLOGY.Edna CHARLES Unavailable ELAN GARCIA Primary Care Unavailab le ELAN GARCIA Referring Unavailab le O'OMID CATHERINE Attending Unavailable ELAN GARCIA Primary Care Unavailab ELNA Cline Attending Unavailab ELAN Cline Primary Care [...] Referring Unavailable ELAN GARCIA Primary Care Unavailab ELAN Cline Attending Unavailab ELAN Cline Primary Care Unavailab ELAN Cline Referring Unavailab le ELAN GARCIA Primary Care Unavailab ELAN Cline Referring Unavailab le ELAN GARCIA Primary Care Unavailab ELAN Cline Referring Unavailab le JG HOWARD Attending Unavailable ELAN GARCIA Primary Care Unavailab le ELAN GARCIA Referring Unavailab dylan Garcia MD, Dr. Baumann Referring Provider King DIANA, Dr. Odom Attending Provider Josue ORTIZ, Dr. Yon Jara Primary Care Provider Dr. Yon Salas MD, Chi Attending Provider Dr. Yon Salas MD, Chi Referring Provider King DIANA, Dr. Odom Other Provider PinedaLei Attending Unavailable Jose, Pastor Primary Care Unavailable Lei Sung Attending Unavailable Pastor Garcia Referring Unavailable Josue, Yon Chi Primary Care Unavailable Josue, Yon Chi Attending Unavailable Josue, Yon Chi Primary Care Unavailable PinedaLei Attending Unavailable Pineda, Lei Referring Unavailable Josue, Yon Chi Primary Care Unavailable Josue, Yon Chi Attending Unavailable Josue, Yon Chi Referring Unavailable Josue, Yon Chi Primary Care Unavailable Josue, Yon Chi Attending Unavailable Josue, Yon Chi Referring Unavailable Josue, Yon Chi Primary Care Unavailable Josue, Yon Chi Attending Unavailable Josue, Yon Chi Referring Unavailable Josue, Yon Chi Primary Care Unavailable Josue, Yon Chi Attending Unavailable Josue, Yon Chi Referring Unavailable Josue, Yon Chi Primary Care Unavailable Lei Sung Consulting Unavailable Josue, Yon Chi Attending Unavailable Josue, Yon Chi Primary Care Unavailable Josue, Yon Chi Referring Unavailable Allergies Allergy Classification Reported Allergen(s) Allergy Type Date of Onset Reaction(s) Facility (20 sources) meloxicam; Translations: [MELOXICAM] Drug Allergy 03-16-20 13 [facility] Repository (20 sources) Penicillins; Translations: [PENICILLINS] Propensity to adverse reactions to drug (disorder) 08-02-20 02 Hives [facility] Repository (20 sources) rofecoxib; Translations: [ROFECOXIB] Drug Allergy 03-16-20 13 GI [facility] Repository (20 sources) Acetaminophen / HYDROcodone; Translations: [HYDROCODONE-ACETA MINOPHEN] Drug Allergy 02-22-20 Other: See Comments [facility] (20 sources) Nitrofurantoin; Translations: [NITROFURANTOIN] Drug Allergy 02-22-20 Other: See Comments [facility] (1 source) Nitrofurantoin Drug Allergy 05-18-20 [facility] Repository Medications Current Medications Medication Drug Class(es) Dates Sig (Normalized) Sig (Original) Acetaminophen (Tylenol Extra Strength) 500 mg powder in packet (6 sources) Start: 05-18-2025 take 500-1000 mg by mouth every six hours as needed Acetaminophen (Tylenol Extra Strength) 500 mg powder in packet Active 500 - 1000 mg PO EVERY 6 HOURS as needed May 18, 2025 12:00am [id number] actuat albuterol 0.09 mg/actuat metered dose [...] Wednesday calcium carbonate 1500 mg oral tablet (15 sources) Start: 08-19-2018 take 2 tablets by [...] vitamin Start: 08-19-2018 take 1000 [IU] by [facility] once daily Cholecalciferol (Vitamin D3) Active 1000 UNIT PO DAILY August 18, 2018 11:00pm Start: 10-11-2017 take 1 capsule by [facility] once daily Cholecalciferol, Vitamin D3, 1,000 unit cap Take 1 capsule by mouth once daily. 10/11/2017 Active Comment on above: Take 1 capsule by [facility] once daily. CYANOCOBALAMIN, VITAMIN B-12, ORAL (20 sources) CYANOCOBALAMIN, VITAMIN B-12, ORAL Take by mouth. Active CYANOCOBALAMIN, VITAMIN B-12, ORAL Take by mouth. 0 Active Comment on above: Take by mouth. cyclobenzaprine hydrochloride 5 mg oral tablet (10 sources) Muscle Relaxant Start: 09-22-20 24 take 1 tablet by mouth every twelve [...] take 1.25 mg by mouth at bedti mi Enalapril Maleate Active 1.25 MG PO AT BEDTIME August 19, 2018 12:00am Comment on above: Take 1 tablet by nicolasa th once daily. estradiol 0.1 mg/ml vaginal cream [...] on above: Take 1 tablet by nicolasa one time only for 1 dose. Repeat [...] once daily. Taking Wed, Wed, and Wednesday. Active take 1 tablet [...] tablet by nicolasa th once daily. Taking Wed, Wed, and Wednesday. pantoprazole 40 mg delayed release oral tablet (6 sources) Proton Pump Inhibitor Start: 05-18-20 take [...] / HYDROcodone bitartrate 5 mg oral tablet (14 sources) Opioid Agonist Start: 06-13-2022 End: 01-22-2024 [...] Comment on above: Take 1 capsule by mo [facility] three times daily as needed for cough. ciprofloxacin 500 mg oral tablet (10 sources) Quinolone Antimicrobial Start: 01-23-2024 End: 05-11-2024 take 1 tablet by mouth twice daily Ciprofloxacin Hcl (Cipro) 500 mg tablet Discontinued 500 mg PO TWICE A DAY 14 7 0 January 23, 2024 1:00am May 11, 2024 6:51am Comment on above: Take 1 tablet by [facility] two times a day. cortisone acetate 25 [...] capsule 2 11/06/2020 01/02/2021 Discontinued estrogens, conjugated (mcc) 0.625 mg/ml vaginal cream (20 sources) Estrogen [...] Discontinued 25 ug PO .1 qd, 2 Sun and Wed 108 3 April 22, 2024 [...] by nicolasa th daily before breakfast. Magnesium (6 sources) Start: 05-11-20 24 End: 05-18-20 Magnesium 200 mg tablet Discontinued 100 mg PO .3XWEEK May 11, 2024 12:00am May 18, 2025 10:49am mecobalamin 1 mg sublingual tablet (15 sources) Start: 06-26-20 End: 04-22-20 Mecobalamin (Vitamin B12) 1,000 mcg tablet,disintegratin g Discontinued 1000 ug SL EVERY OTHER DAY June 26, 2019 12:00am April 22, 2020 9:55am methocarbamol 500 mg oral tablet (6 sources) Muscle Relaxant Start: 05-11-20 End: 05-18-20 take 1 tablet by mouth four times daily as needed for pain Methocarbamol 500 mg tablet Discontinued 500 mg PO 4 TIMES DAILY as needed for Muscle pain/spasm 40 0 May 11, 2024 7:50am May 18, 2024 2:56pm metroNIDAZOLE 500 mg oral tablet (13 sources) Nitroimidazole Antimicrobial Start: 01-23-20 End: 05-11-20 take 1 tablet by mouth three times daily Metronidazole 500 mg tablet Discontinued 500 mg PO THREE TIMES A DAY 21 7 0 January 23, 2024 1:00am May 11, 2024 6:52am Comment on above: Take 1 tablet by nicolasa three times a day. TAKE ONE(2) TABLET TWO(2) TIMES DAILY FOR (1) DAY. Multivitamin (Daily Multi-Vitamin) tablet (6 sources) Start: 05-11-20 End: 05-18-20 Multivitamin (Daily Multi-Vitamin) tablet Discontinued 1 {tbl} PO .3XWEEK May 11, 2024 12:00am May 18, 2025 10:50am nitroglycerin 0.4 mg sublingual tablet (15 sources) Nitrate Vasodilator Start: 08-20-20 End: 01-22-20 [...] above: Take 1 tablet by nicolasa th every 6 hours as needed for nausea/vomiting. oxyCODONE hydrochloride 5 mg oral capsule (6 sources) Opioid Agonist Start: 05-11-20 End: 05-18-20 [...] 9:54am raloxifene hydrochloride 60 mg oral tablet (15 sources) Estrogen Agonist/Antagonist Start: 08-19-2018 End: 04-24-2021 take 1 tablet by mouth once daily Raloxifene 60 MG tablet Discontinued 60 mg PO DAILY August 19, 2018 12:00am April 24, 2021 11:40am 100 ml zoledronic acid 0.05 mg/ml injection (15 sources) Bisphosphonate Start: 04-29-2020 End: 04-24-2021 Zoledronic Kfze-Dvxzcnfa-Pcm er 5 mg/100 mL piggyback Discontinued 5 mg .Route ONCE 100 0 April 29, 2020 12:00am April 24, 2021 11:40am IVPB over 20 minutes Problems Active Problems Problem Classification Problem Date Documented Da te Episodic/Chronic Abdominal pain (2 sources) Generalized abdominal pain; Translations: [Generalized abdominal pain] Episodic Blindness and vision defects (18 sources) Abnormal vision; Translations: [Unspecified visual disturbance] 04-01-2023 Episodic Calculus of urinary tract (20 sources) Kidney stone; Translations: [Calculus of kidney] Onset: 4 07-10-2014 Episodic Chronic kidney disease (20 sources) Chronic kidney disease stage 3; Translations: [CKD (chronic kidney disease), stage III] Onset: 2 10-23-2020 Chronic Chronic kidney disease (3 sources) Chronic kidney disease; Translations: [Stage 3a [...] hypertension] Onset: 0 08-23-2018 Chronic Gastrointestinal hemorrhage (7 sources) Gastrointestinal hemorrhage; Translations: [Gastrointestinal hemorrhage, unspecified] 01-23-2024 Episodic Genitourinary symptoms and ill-defined conditions (20 sources) Microscopic hematuria; Translations: [Other microscopic hematuria] Onset: 4 07-10-2014 Episodic Malaise and fatigue (15 sources) Malaise and fatigue; Translations: [Other malaise] 04-30-2022 Episodic Neoplasms of unspecified nature or uncertain behavior (15 sources) Neoplasm of pituitary gland; Translations: [Neoplasm of unspecified behavior of endocrine glands and other parts of nervous system] 04-30-2020 Episodic Noninfectious gastroenteritis (9 sources) Colitis; Translations: [Noninfective gastroenteritis and colitis, unspecified] Onset: 4 01-23-2024 Episodic Nonspecific chest pain (15 sources) Chest pain; Translations: [Chest pain, unspecified] 08-19-2018 Episodic Open wounds of extremities (20 sources) Open wound of lower limb with complication; Translations: [Unspecified open wound, unspecified lower leg, initial encounter] Onset: 0 Resolved: 3 05-28-2010 Episodic Open wounds of head; neck; and trunk (15 sources) Facial laceration ; Translations: [Laceration without [...] Onset: 3 03-10-2013 Chronic Other endocrine disorders (15 sources) 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; 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 Comment on above: secondary to tumor R esection Other endocrine disorders (15 sources) Hypocortisolism secondary to another disorder; Translations: [...] right eye] 06-21-2022 Episodic Other eye disorders (6 sources) Subconjunctival hemorrhage of right eye; Translations: [...] hip] Onset: 4 05-13-2024 Episodic Other fractures (6 sources) Compression fracture of thoracic spine; Translations: [Wedge compression fracture of unspecified thoracic vertebra, initial encounter for closed fracture] 05-19-2024 Episodic Other gastrointestinal disorders (15 sources) History of gastroesophageal reflux disease; Translations: [Personal history of other diseases of the digestive system] 08-19-2018 Episodic Other injuries and conditions due to external causes (14 sources) Closed injury of head; Translations: [Unspecified injury of head, initial encounter] 06-21-2022 Episodic Other injuries and conditions due to external causes (6 sources) Contusion; Translations: [Unspecified multiple injuries, initial encounter] 05-19-2024 Episodic Other lower respiratory disease (2 sources) Expiratory wheezing; Translations: [Wheezing] Episodic Other lower respiratory disease (2 sources) Cough; Translations: [Acute cough] Episodic Other lower respiratory disease (1 source) Rib pain; Translations: [Pleurodynia] 12-01-2023 Episodic Other nervous system disorders (1 source) Other chronic pain; Translations: [Chronic bilateral low back pain with right-sided sciatica] Onset: Chronic Other non-traumatic joint disorders (2 sources) Hip pain; Translations: [Pain in right hip] Episodic Other non-traumatic joint disorders (3 sources) Pain of right wrist; Translations: [Pain in right wrist] Episodic Other upper respiratory infections (1 source) Upper respiratory infection; Translations: [Acute upper respiratory infection, unspecified] 02-28-2024 Episodic Residual codes; unclassified (20 sources) History of neoplasm of pituitary gland; Translations: [Personal history of other specified conditions] 08-19-2018 Episodic Residual codes; unclassified (6 sources) Personal history of other specified conditions; [...] 1 Resolved: 1 Episodic Sprains and strains (14 sources) Sprain of wrist; Translations: [Unspecified sprain of right wrist, initial encounter] 06-21-2022 Episodic Thyroid disorders (20 sources) Secondary hypothyroidism; Translations: [Other specified hypothyroidism] Onset: 3 Chronic Past or Other Problems Problem Classification Problem Date Documented Da te Episodic/Chronic Allergic reactions (20 sources) Allergic urticaria; Translations: [Allergic urticaria] Onset: 09-04-2009 Resolved: 04-15-2016 05-28-2010 Episodic Biliary tract disease (20 sources) Cholecystitis; Translations: [Cholecystitis, unspecified] Onset: 07-15-2011 Resolved: 10-10-2013 11-17-2021 Episodic Diseases of mouth; excluding dental (20 [...] gastritis without bleeding] Onset: 08-28-2009 05-28-2010 Episodic Mycoses (2 sources) Candidiasis; Translations: [Candidiasis, [...] Test Name Value Interpretation Reference Range Facility [facility]adder[facility] 025 Kidney and Bladder [facility] Imaging Services [address] [place] [address] [id number] Kidney and Bladder MR#: [id number] Acct: [id number] Name: DORA BRYANT Rep #: [id number] : 1945 F [id number] From: Norm goyal MD PCP: Dr. Yon Salas MD Status: [facility] Study: Kidney and Bladder Date of Exam: 06/08/25 Exam# [id number] Ordering Dr: Yon Salas MD PROCEDURE: KIDNEY AND BLADDER 06/08/2025 REASON FOR EXAM: CHRONIC KIDNEY DISEASE, STAGE 3B TECHNIQUE: KIDNEY AND BLADDER COMPARISON: Prior CT scan dated June 06, 2025. FINDINGS: Kidneys: Normal renal sizes, parenchymal thicknesses, and echotextures. [place]: No evidence of hydronephrosis. Cysts or Masses: There is a 1.7 cm 1.5 cm 1.5 cm cyst in the upper pole of the right kidney. RIGHT Kidney Size: 9.6 cm x 4.6 cm x 4.6 cm Volume: 105.75 mL Cortical Thickness (if discernible): 14 mm (>6mm is normal) LEFT Kidney Size: 8.4 cm x 4.3 cm x 4.5 cm Volume: 85.62 mL Cortical Thickness (if discernible): 10 mm (>6mm is normal) US/Kidney and Bladder IMPRESSION: NORMAL RENAL ULTRASOUND. Incidental note is made of a 1.7 cm 1.5 cm x 1.5 cm cyst in the upper midportion of the right kidney. Reading Location: [place] [address] CC: Dr. Yon Salas MD Developer Automatic: Signed Normal [facility] Urine Cultureon 06-07-2025 URC Below infection leve l. Mixed Gram Positive Organisms [place] Count 1000-10,000 MIXC Mixed contaminants. Submit a new specimen if indicated. Normal [facility] Comment on above: Performed By: #### L 100.0100, L501.9520, M100.2200, L503.7505, L400.0001, L500.4050 ####[facility] [address] [facility] [place], [address] Abdomen/Pelvis without Conto n 06-06-2025 Abdomen/Pelvis without Cont [facility] Imaging Services [address] [place] [address] Abdomen/Pelvis without Cont MR#: [id number] Acct: [id number] Name: DORA BRYANT Rep #: [id number] : 1945 F 80 From: Lyla Morrell MD PCP: Dr. Yon Salas MD Status: REG CLI Study: Abdomen/Pelvis without Cont Date of Exam: 05/22 05/16 Exam# [id number] Ordering Dr: Yon Salas MD EXAM: CT Abdomen and Pelvis Without Intravenous Contrast CLINICAL INDICATION: KIDNEY STONE TECHNIQUE: Axial computed tomography images of the abdomen and pelvis without intravenous contrast. This CT exam was performed using one or more of the following dose reduction techniques: automated exposure control, adjustment of the mA and/or kV according to patient size, and/or use of iterative reconstruction technique. COMPARISON: No relevant prior studies available. FINDINGS: LUNG BASES: Unremarkable. No mass. No consolidation. MEDIASTINUM: Small esophageal hiatal hernia. ABDOMEN: LIVER: Fatty infiltration of the liver. GALLBLADDER AND BILE DUCTS: Unremarkable. No calcified stones. No ductal dilation. PANCREAS: Unremarkable. No ductal dilation. SPLEEN: Unremarkable. No splenomegaly. ADRENALS: Unremarkable. No mass. KIDNEYS AND URETERS: Unremarkable. No stones within either kidney. No hydronephrosis. STOMACH AND BOWEL: Unremarkable. No obstruction. No mucosal thickening. PELVIS: APPENDIX: No findings to suggest acute appendicitis. BLADDER: Unremarkable. No stones. REPRODUCTIVE: Unremarkable as visualized. ABDOMEN and PELVIS: INTRAPERITONEAL SPACE: Unremarkable. No free air. No significant fluid collection. BONES/JOINTS: No acute fracture. No dislocation. SOFT TISSUES: Unremarkable. VASCULATURE: Scattered calcified atherosclerotic disease of aorta. No abdominal aortic aneurysm. LYMPH NODES: Unremarkable. No enlarged lymph nodes. CT/Abdomen/Pelvis without Cont IMPRESSION: 1. Small esophageal hiatal hernia. 2. No obstructive uropathy. Reading [facility] CC: Dr. Yon Salas MD Developer Automatic: Signed Normal [facility] Absolute lymphocyte countOrd ered By: Yon Salas on 06-05-2025 Lymphocytes Auto (Unsp spec) [#/Vol] 2.91 10*3/uL 0.83-4.51 [facility] Absolute neutrophil countOrd ered By: Yon Salas on 06-05-2025 Neutrophils (Bld) [#/Vol] 11.2 10*3/uL High 2.0-7.7 [facility] Anion gap in Serum or Plasma Ordered By: Yon Salas on 06-05-2025 Anion gap [Moles/Vol] 11 mmol/L 5-15 [facility] Automated lymphocyte count a s percentage of total leukocytesOrdered By: Yon Salas on 06-05-2025 Lymphocytes/100 WBC Auto (Unsp spec) 19.0 % 19-41 [facility] BUN/creatinine ratioOrdered By: Yon Salas on 06-05-2025 Urea nitrogen/Creatinine [Mass ratio] 19.9 mg/mg 10-20 [facility] Basophil percentageOrdered B y: Yon Salas on 06-05-2025 Basophils/100 WBC (Bld) 0.5 % 0-1 [facility] Bilirubin Test strip Ql (U)O rdered By: Yon Salas on 06-05-2025 Bilirubin Ql (U) Negative Negative [facility] Bilirubin, totalOrdered By: Yon Salas on 06-05-2025 Bilirubin [Mass/Vol] 0.34 mg/dL 0.00-1.30 [facility] CBC W/Diff, Automatedon 05-22 Absolute Lymph 2.91 X10 3/uL Normal 0.83-4.51 [facility] Comment on above: Performed By: #### L 100.0100, L501.9520, M100.2200, L503.7505, L400.0001, L500.4050 ####[facility] [address] [place], [address] Absolute Neut 11.2 X10 3/uL High 2.0-7.7 [facility] Comment on above: Performed By: #### L 100.0100, L501.9520, M100.2200, L503.7505, L400.0001, L500.4050 ####[facility] [address] [place], [address] Basophils/100 WBC (Bld) 0.5 % Normal 0-1 [facility] Comment on above: Performed By: #### L 100.0100, L501.9520, M100.2200, L503.7505, L400.0001, L500.4050 ####[facility] [address] [place], [address] Eosinophils/100 WBC (Bld) 1.0 % Normal 0-5 [facility] Comment on above: Performed By: #### L 100.0100, L501.9520, M100.2200, L503.7505, L400.0001, L500.4050 ####[facility] [address] [place], [address] Erythrocyte distribution width (RBC) [Ratio] 14.5 % Normal 11.6-14.6 [facility] Comment on above: Performed By: #### L 100.0100, L501.9520, M100.2200, L503.7505, L400.0001, L500.4050 ####[facility] [address] [place], [address] Hematocrit (Bld) [Volume fraction] 46.6 % Normal 37-47 [facility] Comment on above: Performed By: #### L 100.0100, L501.9520, M100.2200, L503.7505, L400.0001, L500.4050 ####[facility] [address] [place], [address] Hemoglobin (Bld) [Mass/Vol] 15.3 g/dL High 12.0-15.0 [facility] Comment on above: Performed By: #### L 100.0100, L501.9520, M100.2200, L503.7505, L400.0001, L500.4050 ####[facility] [address] [place], [address] IG% 0.700 Normal 0.0-0.9 [facility] Comment on above: Result Comment: IG% - Immature Granulocytes (promyelocytes, myelocytes and metamyelocytes) > 1% indicates that a LEFT SHIFT is Present. Performed By: #### L 100.0100, L501.9520, M100.2200, L503.7505, L400.0001, L500.4050 ####[facility] [address] [place], [address] Lymphocytes/100 WBC (Bld) 19.0 % Normal 19-41 [facility] Comment on above: Performed By: #### L 100.0100, L501.9520, M100.2200, L503.7505, L400.0001, L500.4050 ####[facility] [address] [place], [address] MCH (RBC) [Entitic mass] 31.2 pg Normal 27.0-32.0 [facility] Comment on above: Performed By: #### L 100.0100, L501.9520, M100.2200, L503.7505, L400.0001, L500.4050 ####[facility] [address] [place], [address] MCHC (RBC) [Mass/Vol] 32.8 g/dL Normal 32-36 [facility] Comment on above: Performed By: #### L 100.0100, L501.9520, M100.2200, L503.7505, L400.0001, L500.4050 ####[facility] [address] [place], [address] MCV (RBC) [Entitic vol] 95.1 fL Normal 81-99 [facility] Comment on above: Performed By: #### L 100.0100, L501.9520, M100.2200, L503.7505, L400.0001, L500.4050 ####[facility] [address] [place], [address] Monocytes/100 WBC (Bld) 5.7 % Normal 0-10 [facility] Comment on above: Performed By: #### L 100.0100, L501.9520, M100.2200, L503.7505, L400.0001, L500.4050 ####[facility] [address] [place], [address] Neutrophils/100 WBC (Bld) 73.1 % High 47-70 [facility] Comment on above: Performed By: #### L 100.0100, L501.9520, M100.2200, L503.7505, L400.0001, L500.4050 ####[facility] [address] [place], [address] Nucleated RBC (Bld) [#/Vol] 0 10*3/uL Normal 0-5 [facility] Comment on above: Performed By: #### L 100.0100, L501.9520, M100.2200, L503.7505, L400.0001, L500.4050 ####[facility] [address] [place], [address] Platelet mean volume (Bld) [Entitic vol] 10.0 fL Normal 6.2-12.0 [facility] Comment on above: Performed By: #### L 100.0100, L501.9520, M100.2200, L503.7505, L400.0001, L500.4050 ####[facility] [address] [place], [address] Platelets (Bld) [#/Vol] 266 10*3/uL Normal 150-450 [facility] Comment on above: Performed By: #### L 100.0100, L501.9520, M100.2200, L503.7505, L400.0001, L500.4050 ####[facility] [address] [place], [address] RBC (Bld) [#/Vol] 4.90 10*6/uL Normal 4.2-5.4 [facility] Comment on above: Performed By: #### L 100.0100, L501.9520, M100.2200, L503.7505, L400.0001, L500.4050 ####[facility] [address] [place], [address] RDW SD 50.7 fl High 35.1-43.9 [facility] Comment on above: Performed By: #### L 100.0100, L501.9520, M100.2200, L503.7505, L400.0001, L500.4050 ####[facility] [address] [place], [address] WBC (Bld) [#/Vol] 15.3 10*3/uL High 4.4-11.0 [facility] Comment on above: Performed By: #### L 100.0100, L501.9520, M100.2200, L503.7505, L400.0001, L500.4050 ####[facility] [address] [place], [address] Carbon dioxide, total [Moles /volume] in Central venous bloodOrdered By: Yon Salas on 06-05-2025 CO2 [Moles/Vol] 23.9 mmol/L 21.0-32.0 [facility] Chloride assayOrdered By: Tera Salas on 06-05-2025 Chloride [Moles/Vol] 103 mmol/L 98-108 [facility] Comprehensive Metabolic Prof ilon 06-05-2025 Albumin [Mass/Vol] 4.5 g/dL Normal 3.4-4.8 [facility] Comment on above: Performed By: #### L 100.0100, L501.9520, M100.2200, L503.7505, L400.0001, L500.4050 ####[facility] [address] [place], [address] Albumin/Globulin [Mass ratio] 1.8 {ratio} Normal 0.9-2.4 [facility] Comment on above: Performed By: #### L 100.0100, L501.9520, M100.2200, L503.7505, L400.0001, L500.4050 ####[facility] [address] [place], [address] ALK PHOS 92 U/L Normal 35-104 [facility] Comment on above: Performed By: #### L 100.0100, L501.9520, M100.2200, L503.7505, L400.0001, L500.4050 ####[facility] [address] [place], [address] ALT [Catalytic activity/Vol] 17 U/L Normal <=34 [facility] Comment on above: Performed By: #### L 100.0100, L501.9520, M100.2200, L503.7505, L400.0001, L500.4050 ####[facility] [address] [place], [address] AST [Catalytic activity/Vol] 26 U/L Normal <=31 [facility] Comment on above: Performed By: #### L 100.0100, L501.9520, M100.2200, L503.7505, L400.0001, L500.4050 ####[facility] [address] [place], [address] Bilirubin [Mass/Vol] 0.34 mg/dL Normal 0.00-1.30 [facility] Comment on above: Performed By: #### L 100.0100, L501.9520, M100.2200, L503.7505, L400.0001, L500.4050 ####[facility] [address] [place], [address] BUN/CRE 19.9 RATIO Normal 10-20 [facility] Comment on above: Performed By: #### L 100.0100, L501.9520, M100.2200, L503.7505, L400.0001, L500.4050 ####[facility] [address] [place], [address] Calcium [Mass/Vol] 9.3 mg/dL Normal 7.6-11.0 [facility] Comment on above: Performed By: #### L 100.0100, L501.9520, M100.2200, L503.7505, L400.0001, L500.4050 ####[facility] [address] [place], [address] Chloride [Moles/Vol] 103 mmol/L Normal 98-108 [facility] Comment on above: Performed By: #### L 100.0100, L501.9520, M100.2200, L503.7505, L400.0001, L500.4050 ####[facility] [address] [place], [address] CO2 [Moles/Vol] 23.9 mmol/L Normal 21.0-32.0 [facility] Comment on above: Performed By: #### L 100.0100, L501.9520, M100.2200, L503.7505, L400.0001, L500.4050 ####[facility] [address] [place], [address] Creatinine [Mass/Vol] 1.36 mg/dL High 0.70-1.20 [facility] Comment on above: Performed By: #### L 100.0100, L501.9520, M100.2200, L503.7505, L400.0001, L500.4050 ####[facility] [address] [place], [address] GAP 11 Normal 5-15 [facility] Comment on above: Performed By: #### L 100.0100, L501.9520, M100.2200, L503.7505, L400.0001, L500.4050 ####[facility] [address] [place], [address] GFR/1.73 sq M.predicted among non-blacks MDRD (S/P/Bld) [Vol rate/Area] 40 mL/min/{1.73_m2} Low >60 [facility] Comment on above: Result Comment: mL/m in/1.73m2 CKD-EPI Creatinine Equation (2020) Performed By: #### L 100.0100, L501.9520, M100.2200, L503.7505, L400.0001, L500.4050 ####[facility] [address] [place], [address] Globulin (S) [Mass/Vol] 2.5 g/dL Normal 2.2-4.2 [facility] Comment on above: Performed By: #### L 100.0100, L501.9520, M100.2200, L503.7505, L400.0001, L500.4050 ####[facility] [address] [place], [address] Glucose [Mass/Vol] 93 mg/dL Normal 70-99 [facility] Comment on above: Performed By: #### L 100.0100, L501.9520, M100.2200, L503.7505, L400.0001, L500.4050 ####[facility] [address] [place], [address] Potassium [Moles/Vol] 4.2 mmol/L Normal 3.3-5.1 [facility] Comment on above: Performed By: #### L 100.0100, L501.9520, M100.2200, L503.7505, L400.0001, L500.4050 ####[facility] [address] [place], [address] Sodium [Moles/Vol] 139 mmol/L Normal 133-145 [facility] Comment on above: Performed By: #### L 100.0100, L501.9520, M100.2200, L503.7505, L400.0001, L500.4050 ####[facility] [address] [place], [address] T PROT 6.9 g/dL Normal 5.9-8.4 [facility] Comment on above: Performed By: #### L 100.0100, L501.9520, M100.2200, L503.7505, L400.0001, L500.4050 ####[facility] [address] [place], [address] Urea nitrogen [Mass/Vol] 27 mg/dL High 4-19 [facility] Comment on above: Performed By: #### L 100.0100, L501.9520, M100.2200, L503.7505, L400.0001, L500.4050 ####[facility] [address] [place], [address] Eosinophil percentageOrdered By: Yon Salas on 06-05-2025 Eosinophils/100 WBC (Bld) 1.0 % 0-5 [facility] Erythrocyte distribution wid th ratioOrdered By: [facility]-2025 Erythrocyte distribution width (RBC) [Ratio] 14.5 % 11.6-14.6 [facility] Erythrocyte distribution wid th standard deviationOrdered By: Yon Josue 06-05-2025 Erythrocyte distribution width (RBC) [Ratio] 50.7 fl High 35.1-43.9 [facility] Glomerular filtration rate ( GFR) estimation/1.73 sq m using serum, plasma, or whole bOrdered By: Yon Salas 06-05-2025 GFR/1.73 sq M.predicted among non-blacks MDRD (S/P/Bld) [Vol rate/Area] 40 mL/min/{1.73_m2} Low >60 [facility] Comment on above: mL/min/1.73m2 CKD-EP I Creatinine Equation (2020) Hematocrit Auto (Bld) [Volum e fraction]Ordered By: Yon Josue 06-05-2025 Hematocrit (Bld) [Volume fraction] 46.6 % 37-47 [facility] Hemoglobin measurementOrdere d By: Yon Salas 06-05-2025 Hemoglobin (Bld) [Mass/Vol] 15.3 g/dL High 12.0-15.0 [facility] Immature granulocytes/100 WB C Auto (Bld)Ordered By: Yon Salas 06-05-2025 Immature granulocytes/100 WBC (Bld) 0.700 % 0.0-0.9 [facility] Comment on above: IG% - Immature Granu locytes (promyelocytes, myelocytes and metamyelocytes) > 1% indicates that a LEFT SHIFT is Present. Ketones Test strip Ql (U)Ord ered By: Yon Salas on 06-05-2025 Ketones Ql (U) Negative Negative [facility] L503.7505on 06-05-2025 Natriuretic peptide B (Bld) [Mass/Vol] 178 pg/mL Normal <=1800 [facility] Comment on above: Result Comment: Hear t Failure Unlikely: < 300 pg/mL Heart Failure Likely < 50 Years: > 450 pg/mL 50-75 Years: > 900 pg/mL >75 Years: > 1800 pg/mL Performed By: #### L 100.0100, L501.9520, M100.2200, L503.7505, L400.0001, L500.4050 ####[facility] [address] [place], [place], [address] Laboratory - Chemistry and C hemistry - challengeOrdered By: Yon Salas on 06-05-2025 AST [Catalytic activity/Vol] 26 U/L <32 [facility] MCV (mean corpuscular volume ) determinationOrdered By: Yon Salas on 06-05-2025 MCV (RBC) [Entitic vol] 95.1 fL 81-99 [facility] Mean corpuscular hemoglobin (MCH) determinationOrdered By: Yon Salas 06-05-2025 MCH (RBC) [Entitic mass] 31.2 pg 27.0-32.0 [facility] Mean corpuscular hemoglobin concentration (MCHC) determinationOrdered By: Yon Salas 06-05-2025 MCHC (RBC) [Mass/Vol] 32.8 g/dL 32-36 [facility] Mean platelet volume determi nationOrdered By: Yon Salas on 06-05-2025 Platelet mean volume (Bld) [Entitic vol] 10.0 fL 6.2-12.0 [facility] Microscopic analysis of urin e for red blood cells (RBC)Ordered By: Yon Salas on 06-05-2025 Microscopic analysis of urine for red blood cells (RBC) 0 SEEN /hpf 0-5 [facility] Monocyte percentageOrdered B y: Yon Salas on 06-05-2025 Monocytes/100 WBC (Bld) 5.7 % 0-10 [facility] Mucus LM Ql (Urine sed)Order ed By: Yon Salas on 06-05-2025 Mucus Ql (Urine sed) 0 SEEN /hpf [facility] Natriuretic peptide.B prohor chago N-Terminal [Mass/volume] in Serum or PlasmaOrdered By: Yon Salas on 06-05-2025 Natriuretic peptide.B prohormone N-Terminal [Mass/Vol] 178 pg/mL <1800 [facility] Comment on above: Heart Failure Unlike ly: < 300 pg/mLHeart Failure Likely< 50 Years: > 450 pg/mL50-75 Years: > 900 pg/mL>75 Years: > 1800 pg/mL Neutrophil percentageOrdered By: Yon Salas on 06-05-2025 Neutrophils/100 WBC (Bld) 73.1 % High 47-70 [facility] Nitrite Test strip Ql (U)Ord ered By: Yon Salas on 06-05-2025 Nitrite Ql (U) Negative Negative [facility] Nucleated red blood cell per centageOrdered By: Yon Salas on 06-05-2025 Nucleated RBC/100 WBC (Bld) [Ratio] 0 % 0-5 [facility] Platelet countOrdered By: Tera Salas on 06-05-2025 Platelets (Bld) [#/Vol] 266 10*3/uL 150-450 [facility] Potassium measurement (mass/ volume)Ordered By: Yon Salas on 06-05-2025 Potassium (Unsp spec) [Mass/Vol] 4.2 mmol/L 3.3-5.1 [facility] Protein Test strip Ql (U)Ord ered By: Yon Salas on 06-05-2025 Protein Ql (U) Negative Negative [facility] RBC Auto (Bld) [#/Vol]Ordere d By: Yon Salas on 06-05-2025 RBC (Bld) [#/Vol] 4.90 10*6/uL 4.2-5.4 [facility] Serum creatinine measurement (mass/volume)Ordered By: Yon Salas on 06-05-2025 Creatinine [Mass/Vol] 1.36 mg/dL High 0.70-1.20 [facility] Serum globulin measurementOr dered By: Yon Salas on 06-05-2025 Globulin (S) [Mass/Vol] 2.5 g/dL 2.2-4.2 [facility] Serum glucose measurement (m ass/volume)Ordered By: Yon Salas on 06-05-2025 Glucose [Mass/Vol] 93 mg/dL 70-99 [facility] Serum or plasma alanine sorto otransferase (ALT) measurementOrdered By: Yon Salas on 06-05-2025 ALT [Catalytic activity/Vol] 17 U/L <35 [facility] Serum or plasma albumin hayden urement (mass/volume)Ordered By: Yon Salas on 06-05-2025 Albumin [Mass/Vol] 4.5 g/dL 3.4-4.8 [facility] Serum or plasma albumin/glob ulin mass ratioOrdered By: Yon Salas on 06-05-2025 Albumin/Globulin [Mass ratio] 1.8 {ratio} 0.9-2.4 [facility] Serum or plasma alkaline bhavin sphatase measurementOrdered By: Yon Salas 06-05-2025 ALP [Catalytic activity/Vol] 92 U/L 35-104 [facility] Serum or plasma calcium hayden urement (mass/volume)Ordered By: Yon Salas 06-05-2025 Calcium [Mass/Vol] 9.3 mg/dL 7.6-11.0 [facility] Serum or plasma urea nitroge n measurement (mass/volume)Ordered By: Yon Salas on 06-05-2025 Urea nitrogen [Mass/Vol] 27 mg/dL High 4-19 [facility] Sodium levelOrdered By: Yon Salas 06-05-2025 Sodium [Moles/Vol] 139 mmol/L 133-145 [facility] Squamous epithelial cells de tection in urine sediment by light microscopyOrdered By: Yon Salas on 06-05-2025 Epithelial cells.squamous LM Ql (Urine sed) 0 SEEN /hpf 5-10 [facility] TSH DL <= 0.005 mIU/L QnOrde red By: Yon Salas on 06-05-2025 TSH Qn 0.987 uIU/mL 0.300-4.200 [facility] Thyroid Stim Hormone (TSH)on 06-05-2025 TSH 0.987 uIU/mL Normal 0.300-4.200 [facility] Comment on above: Performed By: #### L 100.0100, L501.9520, M100.2200, L503.7505, L400.0001, L500.4050 ####[facility] [address] [place], [address] Total proteinOrdered By: Yon Salas on 06-05-2025 Protein [Mass/Vol] 6.9 g/dL 5.9-8.4 [facility] Urinalysis, Completeon 06-05 BACTERIA 0 SEEN Normal None Seen [facility] Comment on above: Order Comment: Urine , Random Performed By: #### L 100.0100, L501.9520, M100.2200, L503.7505, L400.0001, L500.4050 ####[facility] [address] [place], [address] EPI,SQUAMOUS 0 SEEN Normal 5-10 [facility] Comment on above: Order Comment: Urine , Random Performed By: #### L 100.0100, L501.9520, M100.2200, L503.7505, L400.0001, L500.4050 ####[facility] [address] [place], [address] Mucus Ql (Urine sed) 0 SEEN Normal [facility] Comment on above: Order Comment: Urine , Random Performed By: #### L 100.0100, L501.9520, M100.2200, L503.7505, L400.0001, L500.4050 ####[facility] [address] [place], [address] RBC 0 SEEN Normal 0-5 [facility] Comment on above: Order Comment: Urine , Random Performed By: #### L 100.0100, L501.9520, M100.2200, L503.7505, L400.0001, L500.4050 ####[facility] [address] [place], [address] WBC 0 SEEN Normal 0-5 [facility] Comment on above: Order Comment: Urine , Random Performed By: #### L 100.0100, L501.9520, M100.2200, L503.7505, L400.0001, L500.4050 ####[facility] [address] [place], [address] Urine clarityOrdered By: Yon Salas on 06-05-2025 Clarity (U) Clear Clear [facility] Urine color determinationOrd ered By: Yon Salas on 06-05-2025 Color (U) Straw Yellow [facility] Urine cultureOrdered By: Yon Salas 06-05-2025 Bacteria identified Cx Nom (U) Positive Abnormal [facility] Urine glucose detectionOrder ed By: Yon Salas 06-05-2025 Glucose Ql (U) Normal mg/dl Normal [facility] Urine leukocyte esterase det ection by dipstickOrdered By: Yon Salas 06-05-2025 Leukocyte esterase Test strip Ql (U) Negative Negative [facility] Urine pHOrdered By: Yon Salas 06-05-2025 pH (U) 6.0 [pH] 5.0 - 8.0 [facility] Urine sediment bacteria coun t by microscopy (number/high power field)Ordered By: Yon Salas 06-05-2025 Bacteria LM.HPF (Urine sed) [#/Area] 0 /[HPF] None Seen [facility] Urine specific gravity measu rementOrdered By: Yon Salas 06-05-2025 Specific gravity (U) [Rel density] 1.015 1.002-1.030 [facility] Urine urobilinogen measureme ntOrdered By: Yon Salas 06-05-2025 Urobilinogen Ql (U) Normal mg/dl Normal [facility] White blood cell (WBC) count Ordered By: Yon Salas 06-05-2025 WBC (Bld) [#/Vol] 15.3 10*3/uL High 4.4-11.0 [facility] White blood cell countOrdere d By: Yon Salas on 06-05-2025 White blood cell count 0 SEEN /hpf 0-5 [facility] Anion gap in Serum or Plasma Ordered By: Yon Salas on 06-04-2025 Anion gap [Moles/Vol] 11 mmol/L 04-05 [facility] BUN/creatinine ratioOrdered By: Yon Salas on 06-04-2025 Urea nitrogen/Creatinine [Mass ratio] 17.2 mg/mg 09-10 [facility] Basic Metabolic Profile (BMP )on 06-04-2025 BUN/CRE 17.2 RATIO Normal 09-10 [facility] Comment on above: Performed By: #### L 500.2500 ####[facility] [address] [place], [address] Calcium [Mass/Vol] 9.3 mg/dL Normal 7.6-11.0 [facility] Comment on above: Performed By: #### L 500.2500 ####[facility] [address] [place], [address] Chloride [Moles/Vol] 104 mmol/L Normal 98-108 [facility] Comment on above: Performed By: #### L 500.2500 ####[facility] [address] [place], [address] CO2 [Moles/Vol] 23.9 mmol/L Normal 21.0-32.0 [facility] Comment on above: Performed By: #### L 500.2500 ####[facility] [address] [place], [address] Creatinine [Mass/Vol] 1.30 mg/dL High 0.70-1.20 [facility] Comment on above: Performed By: #### L 500.2500 ####[facility] [address] [place], [address] GAP 11 Normal 04-05 [facility] Comment on above: Performed By: #### L 500.2500 ####[facility] [address] [place], [address] GFR/1.73 sq M.predicted among non-blacks MDRD (S/P/Bld) [Vol rate/Area] 42 mL/min/{1.73_m2} Low >60 [facility] Comment on above: Result Comment: mL/m in/1.73m2 CKD-EPI Creatinine Equation (2020) Performed By: #### L 500.2500 ####[facility] [address] [place], [address] Glucose [Mass/Vol] 73 mg/dL Normal 70-99 [facility] Comment on above: Performed By: #### L 500.2500 ####[facility] [address] [place], [address] Potassium [Moles/Vol] 4.3 mmol/L Normal 3.3-5.1 [facility] Comment on above: Performed By: #### L 500.2500 ####[facility] [address] [place], [address] Sodium [Moles/Vol] 139 mmol/L Normal 133-145 [facility] Comment on above: Performed By: #### L 500.2500 ####[facility] [address] [place], [address] Urea nitrogen [Mass/Vol] 22 mg/dL High 4-19 [facility] Comment on above: Performed By: #### L 500.2500 ####[facility] [address] [place], [address] Carbon dioxide, total [Moles /volume] in Central venous bloodOrdered By: Yon Salas on 06-04-2025 CO2 [Moles/Vol] 23.9 mmol/L 21.0-32.0 [facility] Chloride assayOrdered By: Tera Salas on 06-04-2025 Chloride [Moles/Vol] 104 mmol/L 98-108 [facility] Glomerular filtration rate ( GFR) estimation/1.73 sq m using serum, plasma, or whole bOrdered By: Yon Salas on 06-04-2025 GFR/1.73 sq M.predicted among non-blacks MDRD (S/P/Bld) [Vol rate/Area] 42 mL/min/{1.73_m2} Low >60 [facility] Comment on above: mL/min/1.73m2 CKD-EP I Creatinine Equation (2020) Potassium measurement (mass/ volume)Ordered By: Yon Salas on 06-04-2025 Potassium (Unsp spec) [Mass/Vol] 4.3 mmol/L 3.3-5.1 [facility] Serum creatinine measurement (mass/volume)Ordered By: Yon Salas on 06-04-2025 Creatinine [Mass/Vol] 1.30 mg/dL High 0.70-1.20 [facility] Serum glucose measurement (m ass/volume)Ordered By: Yon Salas on 06-04-2025 Glucose [Mass/Vol] 73 mg/dL 70-99 [facility] Serum or plasma calcium hayden urement (mass/volume)Ordered By: Yon Salas on 06-04-2025 Calcium [Mass/Vol] 9.3 mg/dL 7.6-11.0 [facility] Serum or plasma urea nitroge n measurement (mass/volume)Ordered By: Yon Salas on 06-04-2025 Urea nitrogen [Mass/Vol] 22 mg/dL High 4-19 [facility] Sodium levelOrdered By: Yon Salas on 06-04-2025 Sodium [Moles/Vol] 139 mmol/L 133-145 [facility] Cerv Spine 2 or 3 Viewson Cerv Spine 2 or 3 Views [facility] Imaging Services [address] [place], [place] [address] Cerv Spine 2 or 3 Views MR#: [id number] Acct: [id number] Name: DORA BRYANT Rep #: [id number] : 1945 F 80 From: Zhou Andersen MD PCP: Dr. Yon Salas MD Status: REG CLI Study: Cerv Spine 2 or 3 Views Date of Exam: 05/21/25 Exam# [id number] Ordering Dr: Yon Salas MD PROCEDURE: CERV [...] worst at C5-6 and C6-7. Reading Location: [facility] CC: Dr. Yon Salas MD Developer Automatic: Signed Normal [facility] Free T3on 05-21-2025 Free T3 [Mass/Vol] 2.1 pg/mL Low 2.18-3.98 [facility] Comment on above: Performed By: #### L 501.94651, L506.0400 ####[facility] [address] [facility] [place], [address] Free J5Hdsvjei By: Lei Sung on 05-21-2025 Free T3 [Mass/Vol] 2.1 pg/mL Low 2.18-3.98 [facility] L/S Spine Min 4 Viewson 04-24 L/S Spine Min 4 Views [facility] Imaging Services [address] [place] [address] L/S Spine Min 4 Views MR#: [id number] Acct: [id number] Name: DORA BRYANT Rep #: [id number] : 1945 F 80 From: Zhou Andersen MD PCP: Dr. Yon Salas MD Status: REG CLI Study: L/S Spine Min 4 Views Date of Exam: 05/21/25 Exam# [id number] Ordering Dr: Yon Salas MD PROCEDURE: L/S SPINE MIN 4 VIEWS 05/21/2025 REASON FOR EXAM: LOW BACK PAIN TECHNIQUE: L/S SPINE MIN 4 VIEWS COMPARISON: Lumbar spine radiographs on 05/11/2024 FINDINGS: There are 5 ycv-twy-usmznff lumbar-type vertebral bodies. Vertebral body heights are maintained. There is a proximally 5 mm anterolisthesis of L5 on S1, unchanged. No pars defect identified on the oblique images. Jpzj-kg-vlwcgjan multilevel disc height loss and endplate osteophyte formation with facet arthrosis, worst at L3-4 through L5-S1. Aortic atherosclerosis. RAD/L/S Spine Min 4 Views IMPRESSION: Cdht-yf-ovuvvptd degenerative changes of the lumbar spine, worst from L3-4 through L5-S1 and progressed since radiographs on 05/11/2024. Reading Location: [id number] CC: Dr. Yon Salas MD Developer Automatic: Signed Normal [facility] T4 Free Directon 05-21-2025 T4 FREE DIRECT 0.80 ng/dL Normal 0.76-1.46 [facility] Comment on above: Performed By: #### L 501.81504, L506.0400 ####[facility] [address] [facility] [place], [address] T4 freeOrdered By: Lei Sung on 05-21-2025 Free T4 [Mass/Vol] 0.80 ng/dL 0.76-1.46 [facility] Thoracic Spine 3 Viewson Thoracic Spine 3 Views [facility] Imaging Services [address] [place], [place] [address] Thoracic Spine 3 Views MR#: [id number] Acct: [id number] Name: DORA BRYANT Rep #: [id number] : 1945 F 80 From: Zhou Anedrsen MD PCP: Dr. Yon Salas MD Status: REG CLI Study: Thoracic Spine 3 Views Date of Exam: 05/21/25 Exam# [id number] Ordering Dr: Yon Salas MD PROCEDURE: THORACIC SPINE 3 VIEWS 05/21/2025 REASON FOR EXAM: THORACIC BACK PAIN TECHNIQUE: THORACIC SPINE 3 VIEWS COMPARISON: Thoracic spine radiographs 05/11/2024 FINDINGS: Slight anterior wedging of several upper thoracic vertebral bodies, unchanged from 05/11/2024. Thoracic vertebral body heights are otherwise maintained. There is mild leftward curvature of the thoracic spine. Xtzh-ou-ljdxghzj multilevel disc height loss with endplate osteophyte formation. The visualized lungs are clear. Aortic atherosclerosis. RAD/Thoracic Spine 3 Views IMPRESSION: 1. Mild to moderate multilevel degenerative changes of the thoracic spine. 2. Slight anterior wedging of several upper thoracic vertebral bodies is unchanged from 05/11/2024. Reading Location: [id number] CC: Dr. Yon Salas MD Developer Automatic: Signed Normal [facility] Endocrinology Visit Reporton 05-18-2025 Endocrinology Visit Report [facility] [address] [place] [address] [address] [place] [address] OFFICE VISIT Date of Service: 05/18/25 MR#: [id number] Acct: [id number] Name: DORA BRYANT Rep #: [id number] : 1945 Provider: Ina Herron Age/Sex: 80/F Location: [facility] [place] Status: Signed Intake Vital Signs 05/18/24 14:53 [...] FU Chief Complaint: Osteopororis, hypothyroid, pituitary tumor Employment Counselor Required: No Accompanied by: Self Is patient [...] denosumab 60 mg/mL subcutaneous 60 mg subcut [id number] #1 mL 05/18/25 Rx syringe (Prolia) estradiol 0.01% (0.1 mg/gram) vaginal .2-3XWEEK 05/11/24 5 History vaginal cream acetaminophen 500 mg oral powder 500 - 1,000 mg PO Q6H PRN 05/18/25 05/18/25 History packet (Tylenol Extra Strength) hydrocortisone 10 mg tablet 10 mg PO .COMPLEX #180 tabs 05/18/25 Rx levothyroxine 25 mcg tablet 25 mcg PO .1 qd, 2 Sun and Wed05/18/25 Rx thyroid #108 tabs pantoprazole [...] Skin Skin: (more content not included)... Normal [facility] CBC W/Diff, Automatedon 02-2 0-2024 Absolute Lymph 1.92 X10 3/uL Normal 0.83-4.51 [facility] Comment on above: Performed By: #### L 500.4050, L500.4100, L501.9520, L506.1000, L100.0100 #### [facility] [address] [place], [address] Absolute Neut 9.3 X10 3/uL High 2.0-7.7 [facility] Comment on above: Performed By: #### L 500.4050, L500.4100, L501.9520, L506.1000, L100.0100 #### [facility] [address] [place], [address] Basophils/100 WBC (Bld) 0.6 % Normal 0-1 [facility] Comment on above: Performed By: #### L 500.4050, L500.4100, L501.9520, L506.1000, L100.0100 #### [facility] [address] [place], [address] Eosinophils/100 WBC (Bld) 2.6 % Normal 0-5 [facility] Comment on above: Performed By: #### L 500.4050, L500.4100, L501.9520, L506.1000, L100.0100 #### [facility] [address] [place], [address] Erythrocyte distribution width (RBC) [Ratio] 14.1 % Normal 11.6-14.6 [facility] Comment on above: Performed By: #### L 500.4050, L500.4100, L501.9520, L506.1000, L100.0100 #### [facility] [address] [place], [address] Hematocrit (Bld) [Volume fraction] 46.7 % Normal 37-47 [facility] Comment on above: Performed By: #### L 500.4050, L500.4100, L501.9520, L506.1000, L100.0100 #### [facility] [address] [place], [address] Hemoglobin (Bld) [Mass/Vol] 15.1 g/dL High 12.0-15.0 [facility] Comment on above: Performed By: #### L 500.4050, L500.4100, L501.9520, L506.1000, L100.0100 #### [facility] [address] [place], [address] IG% 0.500 Normal 0.0-0.9 [facility] Comment on above: Result Comment: IG% - Immature Granulocytes (promyelocytes, myelocytes and metamyelocytes) > 1% indicates that a LEFT SHIFT is Present. Performed By: #### L 500.4050, L500.4100, L501.9520, L506.1000, L100.0100 #### [facility] [address] [place], [address] Lymphocytes/100 WBC (Bld) 15.5 % Low 19-41 [facility] Comment on above: Performed By: #### L 500.4050, L500.4100, L501.9520, L506.1000, L100.0100 #### [facility] [address] [place], [address] MCH (RBC) [Entitic mass] 30.8 pg Normal 27.0-32.0 [facility] Comment on above: Performed By: #### L 500.4050, L500.4100, L501.9520, L506.1000, L100.0100 #### [facility] [address] [place], [address] MCHC (RBC) [Mass/Vol] 32.3 g/dL Normal 32-36 [facility] Comment on above: Performed By: #### L 500.4050, L500.4100, L501.9520, L506.1000, L100.0100 #### [facility] [address] [place], [address] MCV (RBC) [Entitic vol] 95.3 fL Normal 81-99 [facility] Comment on above: Performed By: #### L 500.4050, L500.4100, L501.9520, L506.1000, L100.0100 #### [facility] [address] [place], [address] Monocytes/100 WBC (Bld) 5.5 % Normal 0-10 [facility] Comment on above: Performed By: #### L 500.4050, L500.4100, L501.9520, L506.1000, L100.0100 #### [facility] [address] [place], [address] Neutrophils/100 WBC (Bld) 75.3 % High 47-70 [facility] Comment on above: Performed By: #### L 500.4050, L500.4100, L501.9520, L506.1000, L100.0100 #### [facility] [address] [place], [address] Nucleated RBC (Bld) [#/Vol] 0 10*3/uL Normal 0-5 [facility] Comment on above: Performed By: #### L 500.4050, L500.4100, L501.9520, L506.1000, L100.0100 #### [facility] [address] [place], [address] Platelet mean volume (Bld) [Entitic vol] 9.9 fL Normal 6.2-12.0 [facility] Comment on above: Performed By: #### L 500.4050, L500.4100, L501.9520, L506.1000, L100.0100 #### [facility] [address] [place], [address] Platelets (Bld) [#/Vol] 319 10*3/uL Normal 150-450 [facility] Comment on above: Performed By: #### L 500.4050, L500.4100, L501.9520, L506.1000, L100.0100 #### [facility] [address] [place], [address] RBC (Bld) [#/Vol] 4.90 10*6/uL Normal 4.2-5.4 [facility] Comment on above: Performed By: #### L 500.4050, L500.4100, L501.9520, L506.1000, L100.0100 #### [facility] [address] [place], [address] RDW SD 49.9 fl High 35.1-43.9 [facility] Comment on above: Performed By: #### L 500.4050, L500.4100, L501.9520, L506.1000, L100.0100 #### [facility] [address] [place], [address] WBC (Bld) [#/Vol] 12.4 10*3/uL High 4.4-11.0 [facility] Comment on above: Performed By: #### L 500.4050, L500.4100, L501.9520, L506.1000, L100.0100 #### [facility] [address] [place], [address] Comprehensive Metabolic Prof [facility] 01-11-2025 Albumin [Mass/Vol] 3.7 g/dL Normal 3.2-5.0 [facility] Comment on above: Performed By: #### L 500.4050, L500.4100, L501.9520, L506.1000, L100.0100 #### [facility] [address] [place], [address] Albumin/Globulin [Mass ratio] 1.1 {ratio} Normal 0.9-2.4 [facility] Comment on above: Performed By: #### L 500.4050, L500.4100, L501.9520, L506.1000, L100.0100 #### [facility] [address] [place], [address] ALK P 92 U/L Normal 45-117 [facility] Comment on above: Performed By: #### L 500.4050, L500.4100, L501.9520, L506.1000, L100.0100 #### [facility] [address] [place], [address] ALT [Catalytic activity/Vol] 18 U/L Normal 13-56 [facility] Comment on above: Performed By: #### L 500.4050, L500.4100, L501.9520, L506.1000, L100.0100 #### [facility] [address] [place], [address] AST [Catalytic activity/Vol] 19 U/L Normal 15-37 [facility] Comment on above: Performed By: #### L 500.4050, L500.4100, L501.9520, L506.1000, L100.0100 #### [facility] [address] [place], [address] Bilirubin [Mass/Vol] 0.40 mg/dL Normal 0.20-1.00 [facility] Comment on above: Result Comment: For patients on eltrombopag therapy, use of Dimension [place] TBIL is not recommended. Performed By: #### L 500.4050, L500.4100, L501.9520, L506.1000, L100.0100 #### [facility] [address] [place], [address] BUN/CRE 13.1 RATIO Normal 10-20 [facility] Comment on above: Performed By: #### L 500.4050, L500.4100, L501.9520, L506.1000, L100.0100 #### [facility] [address] [place], [address] CA,Total 9.0 mg/dL Normal 8.5-10.1 [facility] Comment on above: Performed By: #### L 500.4050, L500.4100, L501.9520, L506.1000, L100.0100 #### [facility] [address] [place], [address] Chloride [Moles/Vol]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 on above: NORMAL REFERENCE RAN GES FEMALE FOLLICULAR 2.3 - 12.6 mIU/mL MID-CYCLE PEAK 5.2 - 17.5 mIU/mL LUTEAL 1.7 - 12.9 mIU/mL POST-MENOPAUSAL ON MHT 5.9 - 72.8 mIU/mL NOT ON MHT 12.7 - 132.2 mlU/mL MALE 0.7 - 10.8 mIU/mL Free Triiodothyronine (T3) pg/dL 2.1 pg/mL 2.18-3.98 [facility] Work Phone: Luteinizing Hormone < 0.2 mIU/mL [facility] Work Phone: Comment on above: NORMAL REFERENCE RAN GES FEMALE FOLLICULAR 1.9 - 26.2 mIU/mL MID-CYCLE PEAK 22.8 - 76.1 mIU/mL LUTEAL 0.6 - 16.6 mIU/mL POST-MENOPAUSAL ON MHT 1.1 - 52.4 mIU/mL NOT ON MHT 8.6 - 61.8 mIU/mL MALE 1.2 - 10.6 mIU/mL Somatomedin-C 54 ng/mL 48-191 [facility] Work Phone: Comment on above: Performed at: [address] [id number] Director: Crystal Keenan MD, Phone: [phone] Vitamin D 25-Hydroxy 92.8 ng/mL [facility] Work Phone: Comment on above: Vitamin D 25(OH) Sta tus Range Deficiency <20 ng/mL (50nmol/L) Insufficiency 20 - 30 ng/mL (50 - 75 nmol/L) Sufficiency 30 - 100 ng/mL (75 - 250 nmol/L) Toxicity >100 ng/mL (>250 nmol/L) Platelets bldon 04-30-2022 Platelets (Bld) [#/Vol] 296 10*3/uL 150-450 [facility] Work Phone: Serum or plasma albumin hayden urement (mass/volume)on 04-30-2022 Albumin [Mass/Vol] 3.8 g/dL 3.2-5.0 [facility] Work Phone: Serum or plasma albumin/glob ulin mass ratioon 04-30-2022 Albumin/Globulin [Mass ratio] 1.1 {ratio} 0.9-2.4 [facility] Work Phone: Serum or plasma calcium hayden urement (mass/volume)on 04-30-2022 Calcium [Mass/Vol] 8.9 mg/dL 8.5-10.1 [facility] Work Phone: Serum or plasma creatinine m easurement (mass/volume)on 04-30-2022 Creatinine [Mass/Vol] 1.13 mg/dL 0.55-1.02 [facility] Work Phone: Comment on above: The validity of the calculated GFR & GFRAA in patients over 70 years has not been determined. Clinical correlation is essential. Serum or plasma ferritin rosario surement (mass/volume)on 04-30-2022 Ferritin [Mass/Vol] 83 ng/mL 8-252 [facility] Work Phone: Serum or plasma urea nitroge n measurement (mass/volume)on 04-30-2022 Urea nitrogen [Mass/Vol] 17 mg/dL 7-18 [facility] Work Phone: Thin prep Papanicolaou smear with manual screeningon 04-30-2022 Thin prep Papanicolaou smear with manual screening 25 U/L 15-37 [facility] Work Phone: Comment on above: Slight Hemolysis, Re sult may be falsely increased. Thin prep Papanicolaou smear with manual screening 7 5-15 [facility] Work Phone: C-REACTIVE PROTEIN (CRP)on 0 03-21-2022 CRP [Mass/Vol] mg/L <0.9 mg/dL [facility] ESR Westergren method (Bld) [Velocity]on 03-20-2022 ESR (Bld) [Velocity] 12 mm/h 0 - 20 mm/hr [facility] No Panel Informationon 03-20 [facility] Radiology Study observation (narrative) [facility] XR HIP BILATERAL 5V PEL/AP/L AT EACH HIPon 03-20-2022 IMPRESSION: 1. No acute bony process. 2. Degenerative changes as detailed in report. Developer Automatic: JODY Transcribe Date/Time: Mar 20 2022 3:56P [...] ZZZ_DO_NOT _USE_DIVIS ION OF RADIOLOGY Provider, Rylee Morris - 03/20/2022 * * *Final Report* * [...] 2. Degenerative changes as detailed in report. Developer Automatic: [facility] Transcribe Date/Time: Mar 20 2022 3:56P Dictated by : LEISA HAMPTON MD This examination was interpreted and the report reviewed and electronically signed by: LEISA HAMPTON MD on Mar 20 2022 3:58PM EST [facility] XR Lumbar spine 3 Viewson IMPRESSION: Mild scoliotic curvature and stable degenerative changes. Stable anterolisthesis of L5 on S1 without associated pars interarticularis defect. Developer Automatic: [facility] Transcribe Date/Time: Mar 20 2022 3:52P Dictated [...] which could be ingested pill. ZZZ_DO_NOT _USE_DIVIS [facility] OF RADIOLOGY Provider, Rylee Real [facility] - 03/20/2022 * * *Final Report* * [...] on S1 without associated pars interarticularis defect. Developer Automatic: JODY Transcribe Date/Time: Mar 20 2022 3:52P Dictated by : LEISA HAMPTON MD This examination was interpreted and the report reviewed and electronically signed by: LEISA HAMPTON MD on Mar 20 2022 3:56PM EST [facility] XR Foot - left AP and Latera l and obliqueon 05-30-2021 IMPRESSION: Postsurgical change. No complication. Developer Automatic: PSCSheila Transcribe Date/Time: May 30 2021 11:27A Dictated by : MILES KEYES MD This examination was interpreted and the report reviewed and electronically signed by: MILES KEYES MD on May 30 2021 11:28AM [facility] DIVISION OF RADIOLOGY * * *Final Report* [...] tissue abnormality identified. DIVISION OF RADIOLOGY Provider, [facility] - 05/30/2021 * * *Final Report* * [...] identified. IMPRESSION IMPRESSION: Postsurgical change. No complication. Developer Automatic: [facility] Transcribe Date/Time: May 30 2021 11:27A Dictated by : MILES KEYES MD This examination was interpreted and the report reviewed and electronically signed by: MILES KEYES MD on May 30 2021 11:28AM EST [facility] Radiology Study observation (narrative) [facility] XR Foot - left AP and Latera l and obliqueOrdered By: Ccf Provider on 05-30-2021 [facility] XR Chest PA and Lateralon IMPRESSION: Both diaphragmatic contours are mildly more lobular than previously but there are no findings elsewhere of significant pleural process and there are no acute radiographic abnormalities. Developer Automatic: JODY Transcribe Date/Time: Dec 20 2020 3:45P Dictated by : WAGNER ERNST MD This examination was interpreted and the report reviewed and electronically signed by: WAGNER ERNST MD on Dec 20 2020 3:50PM [facility] DIVISION OF RADIOLOGY * * *Final Report* [...] Preexistent thoracic kyphoscoliosis. DIVISION OF RADIOLOGY Provider, [facility] - 12/20/2020 * * *Final Report* * [...] and there are no acute radiographic abnormalities. Developer Automatic: [facility] Transcribe Date/Time: Dec 20 2020 3:45P Dictated by : WAGNER ERNST MD This examination was interpreted and the report reviewed and electronically signed by: WAGNER ERNST MD on Dec 20 2020 3:50PM EST [facility] Radiology Study observation (narrative) [facility] XR Chest PA and LateralOrder ed By: Ccf Provider on 12-20-2020 [facility] XR Lumbar spine 3 Viewson IMPRESSION: Lumbar s pine degenerative changes as described above. Developer Automatic: [facility] Transcribe Date/Time: Nov 19 2020 4:59P Dictated by : MARY REGAN MD This examination was interpreted and the report reviewed and electronically signed by: MARY REGAN MD on Nov 19 2020 5:01PM EST DIVISION OF RADIOLOGY * * *Final [...] spine are presented. FINDINGS: There are five vkz-xtm-eqknsrr lumbar vertebrae. No acute fractures seen. There is grade 1 L5 5 on S1 anterolisthesis, similar to prior study. The disc spaces are well preserved. There is mild osteophyte formation. The bones are somewhat osteopenic. Questionable kissing spine. DIVISION OF RADIOLOGY Provider, Rylee Morris - 11/19/2020 * * *Final Report* * [...] spine are presented. FINDINGS: There are five msh-roi-jcmjhuh lumbar vertebrae. No acute fractures seen. There is grade 1 L5 5 on S1 anterolisthesis, similar to prior study. The disc spaces are well preserved. There is mild osteophyte formation. The bones are somewhat osteopenic. Questionable kissing spine. IMPRESSION IMPRESSION: Lumbar spine degenerative changes as described above. Developer Automatic: [facility] Transcribe Date/Time: Nov 19 2020 4:59P Dictated by : MARY REGAN MD This examination was interpreted and the report reviewed and electronically signed by: MARY REGAN MD on Nov 19 2020 5:01PM EST [facility] Radiology Study observation (narrative) [facility] XR Lumbar spine 3 ViewsOrder ed By: Ccf Provider on 11-19-2020 [facility] ANES [place] 10-28-2018 ANES POST HNO ID: [id number] thor: SULEIMAN Silvermanervice: AnesthesiologyAuthor Type: AnesthesiologistType: Anesthesia [...] Remarks:SIGNATURE: Hunter Blair MD PATIENT NAME: Dora MeeksTE: October 28, 2018 : 2:09 PM PAGER/CONTACT #: [facility] ANES PREOPon 10-28-2018 ANES PREOP HNO ID: [id number] thor: Mahin HernandezService: AnesthesiologyAuthor Type: AnesthesiologistType: Anesthesia [...] 42.7 09/14/2018Potassium 4.5 10/07/2018ANES DOS/PREOP NOTE: Vitals: 954BP: 118/75Pulse: 69Resp: 16Temp: 36.4 ?C (97.5 ?F)TempSrc: Temporal ArterySpO2: 100%ACTIVE PROBLEM LISTSenile OsteoporosisEsophageal RefluxBenign Neoplasm of ColonAcute Gastritis Without Mention of HemorrhageUnspecified Erythematous ConditionAllergic UrticariaUrticaria, UnspecifiedUnspecified Pruritic DisorderInflamed Seborrheic KeratosisOther Seborrheic KeratosisOpen Wound of Leg With ComplicationHyperlipidemiaE ssential HypertensionHypopituitarism (Hcc)Pituitary Adenoma (Hcc)Glucocorticoid Deficiency (Hcc)MicrohematuriaKidney StoneLower [...] mg injection (VERSED) 2 mg INTRAVENOUS ONCE Carinaergies:ALL ERGIESAllergen Reactions- Meloxicam GI Upset- Penicillins Hives- Vioxx [...] contains updated information obtained within 48 hours ofSurgery/Procedure.SIGNATU RE: Mahin Hernandez MD PATIENT NAME: Dora MeeksTE: October 28, 2018 : 10:39 AM CSN: [id number] [facility] NURSING PROGon 10-28-2018 Protein mass conc HNO ID: [id number] thor: Margret RushRn) JOYCE Hartervice: NursingAuthor Type: Registered NurseType: Nursing Progress NoteFiled: 10/28/2018 3:04 PMNote Text:[id number] Received from or Drowsy No c/o [id number] Pt [id number] To phase II care Light diet to [id number] Iv removed Discharge instructions reviewed with pt and husbandAssisting pt to [id number] Up to br [id number] Discharged by wheelchair [facility] Protein mass conc HNO ID: [id number] thor: Dionicio Rajan) JOYCE Christinaervice: NursingAuthor Type: Registered NurseType: Nursing Progress NoteFiled: 10/28/2018 11:47 AMNote Text:Dr. Hernandez at bedside for Right infraclavicular nerve block. RN atbedside, pt monitored throughout, BP 144/70 Pulse 67 Temp 36.4 ?C(97.5 ?F) (Temporal Artery) Resp 16 SpO2 100% . Pt toleratedprocedure without difficulty. [facility] OPERATIVE NOon 10-28-2018 OPERATIVE NO HNO ID: [id number] thor: Leonard Acostae: Orthopaedic SurgeryAuthor Type: PhysicianType: Operative ReportFiled: 10/28/2018 1:20 PMNote Text:OPERATIVE/PROCEDURE REPORT?LOG ID: [id number]/Procedure Date: 10/28/2018Incision/Procedure Start Time: 11:41 AMIncision Close/Procedure End Time: 1:00 PMSurgeon(s)/Proceduralist( s) and Food Production Machine Operator(s):Surgeon(s) and Role: * Leonard Justice - PrimaryNurse [...] place with the Tevdeksuture.? A number of xjwavu-cm-azwgwl from? the tendon were secured, andthe remaining [...] was taken to thePostoperative Suite in stable condition.?Pre-Op/Pre-Proce dure Diagnosis: Right thumb, CMC osteoarthritis,subsequent.? Post-Op/Post-Procedure Diagnosis: sameEstimated Blood Loss: 0 ml?Specimens: None?Implantable Devices: None?Drains: None?Complications: None??PARTICIPATION IN SURGERY/PROCEDURE: I performed the procedure withassistance.There were no residents or fellows available.SIGNATURE: Leonard Justice MD PATIENT NAME: Dora FrancoeDATE: October 28, 2018 : 1:20 PM PAGER/CONTACT #: [facility] PT EDon 10-28-2018 PT ED HNO ID: [id number] thor: Margret (Rn) JOYCE Hartervice: NursingAuthor Type: Registered NurseType: Patient EducationFiled: 10/28/2018 3:02 PMNote Text:2POST OP LEARNING RESPONSEINSTRUCTION PROVIDED TO: Patient and SpouseMETHOD OF INSTRUCTION: Verbal instructionPATIENT / FAMILY RESPONSE: Information received as demonstrated byinterest and questionsFOLLOW-UP PLAN: Patient instructed to call with any further issuesSUPPLEMENTAL MATERIAL: Post op discharge instructionsREFERRAL (RECOMMENDATION): NoneElectronically Signed By: Margret Hart RN [facility] PT ED HNO ID: [id number] thor: Dionicio RushRn) JOYCE Christinaervice: NursingAuthor Type: Registered NurseType: Patient EducationFiled: 10/28/2018 9:57 AMNote Text:PRE OP LEARNING ASSESSMENTPROCEDURE/SURGERY : SURGERY: Right thumb, carpal metacarpal arthroplastywith ligament reconstruction and tendon interposition.READINESS TO LEARNCOGNITIVE ABILITY: Alert and orientedMOTIVATION TO LEARN: EagerFAMILY SUPPORT: High - Very involved in pt carePATIENT LEARNS BEST BY: Individual InstructionVerbal InstructionFACTORS AFFECTING LEARNING: NonePHYSICAL LIMITATIONS AFFECTING LEARNING: NoneElectronically Signed By: Dionicio Christina RN [facility] NURSING PROGon 10-14-2018 Protein mass conc HNO ID: [id number] thor: Denisse (Delfin) JOYCE Richmondervice: NursingAuthor Type: Registered NurseType: Nursing Progress NoteFiled: [...] Considerations:N/AChart Check:Kelly Richmond RNNovember 2017 3:02 PM [facility] HOSPon 10-03-2018 HOSP Patient:Crow Bryant MMRN: [...] of carpometacarpal (CMC) joint of right thumb [M18.11]Allergies:Meloxicam PenicillinsVioxx [Rofecoxib]Date Verified: 10/28/18Lab ValuesLab Value Units Date High LowPOTA* 4.5 mmol/L 10/07/2018 5.1 3.7Progress Notes ([facility]):Monica Caraballo LPN 10/25/2018 11:02 AM [...] ]GLUCOSE: NEGATIVE, [low- negative, high- 2000]Lot #: [id number] Date: 04/21/2019 Quality check: MarcosMonica Caraballo LPN DELBERT Lazo 10/25/2018 3:38 PM SignedCatdaniel Buckley Adrian is a 73 year old female.Patient presents [...] Breast Cancer SisterSOCIAL HISTORY:3Employer And Job Title: [employer] (retired)Marital Status: to Ab with 2 childrenTobacco [...] medication discussionSkip Grijalva, ALLS, [place], PA-CProgress Notes ([facility]):Sonam Sewell LPN 10/24/2018 1:32 PM SignedPatient presents for Prolia injection. Denies any problems at this time. Patientinstructed on any SE of medication, verbalized understanding and agreed toproceed with treatment. Tolerated injection well.Sonam Sewell LPN [facility] Vital Signs Date Time Vital Sign Value Performing Clinician Kimberlyi joanna 05-18-2025 10:43-0400 Body height 149.[address] Pastor Garcia MD Work Phone: [facility] 05-18-2025 10:43-0400 Body mass index (BMI) [Ratio] 26.9 kg/m2 Dr. Pastor Garcia MD Work Phone: [facility] 05-18-2025 10:43-0400 Body weight 60.[address] Pastor Garcia MD Work Phone: [phone] [place] [address] 05-18-2025 10:43-0400 Diastolic blood pressure 85 mm[Hg] Dr. Pastor Garcia MD Work Phone: [phone] [place] [address] 05-18-2025 10:43-0400 Heart rate 74 /min Dr. Pastor Garcia MD Work Phone: [phone])[phone] [place] [address] 05-18-2025 10:43-0400 SaO2% (BldA) [Mass fraction] 99 % Dr. Pastor Garcia MD Work Phone: [phone])[phone] [place] [address] 05-18-2025 10:43-0400 Systolic blood pressure 139 mm[Hg] Dr. Pastor Garcia MD Work Phone: [facility] 10-27-2024 09:36-0500 Body mass index (BMI) [Ratio] 25.87 kg/m2 Edna Podlogar ASSISTANT PROFESSOR SURGICAL TECHNOLOGY.BINDING NICKER Work Phone: [facility] 10-27-2024 09:36-0500 Body weight 58.1 kg Edna Podlogar ASSISTANT PROFESSOR SURGICAL TECHNOLOGY.[employer]INDING [employer]ER Work Phone: [facility] 10-27-2024 09:36-0500 Diastolic blood pressure 82 mm[Hg] Edna Podlogar ASSISTANT PROFESSOR SURGICAL TECHNOLOGY.[employer]INDING [employer]ER Work Phone: [facility] 10-27-2024 09:36-0500 Heart rate 87 /min Edna Podlogar ASSISTANT PROFESSOR SURGICAL TECHNOLOGY.[employer]INDING [employer]ER Work Phone: [facility] 10-27-2024 09:36-0500 Respiratory rate 18 /min Edna Podlogar ASSISTANT PROFESSOR SURGICAL TECHNOLOGY.BINDING [employer]ER Work Phone: [facility] 10-27-2024 09:36-0500 SaO2% (BldA) [Mass fraction] 97 % Edna Podlogar ASSISTANT PROFESSOR SURGICAL TECHNOLOGY.[employer]INDING [employer]ER Work Phone: [facility] 10-27-2024 09:36-0500 Systolic blood pressure 134 mm[Hg] Edna Podlogar ASSISTANT PROFESSOR SURGICAL TECHNOLOGY.[employer]ING [employer]ER Work Phone: [facility] 09-25-2024 09:54-0500 Body mass index (BMI) [Ratio] 26.86 kg/m2 Adeline Older ASSISTANT PROFESSOR SURGICAL TECHNOLOGY.[employer]ING [employer]ER Work Phone: [facility] 09-25-2024 09:54-0500 Body weight 60.33 kg Adeline Older ASSISTANT PROFESSOR SURGICAL TECHNOLOGY.[employer]ING [employer]ER Work Phone: [facility] 09-25-2024 09:54-0500 Diastolic blood pressure 78 mm[Hg] Adeline Older ASSISTANT PROFESSOR SURGICAL TECHNOLOGY.[employer]INDING [employer]ER Work Phone: [facility] 09-25-2024 09:54-0500 Heart rate 90 /min Adeline Older ASSISTANT PROFESSOR SURGICAL TECHNOLOGY.BINDING [employer]ER Work Phone: [facility] 09-25-2024 09:54-0500 Respiratory rate 16 /min Adeline Older ASSISTANT PROFESSOR SURGICAL TECHNOLOGY.BINDING [employer]ER Work Phone: [facility] 09-25-2024 09:54-0500 Systolic blood pressure 130 mm[Hg] Adeline Older ASSISTANT PROFESSOR SURGICAL TECHNOLOGY.[employer]ING [employer]ER Work Phone: [facility] 09-22-2024 10:00-0400 Body mass index (BMI) [Ratio] 26.66 kg/m2 Elan Garcia MD Work Phone: [facility] 09-22-2024 10:00-0400 Body weight 59.88 kg Elan Garcia MD Work Phone: [facility] 09-22-2024 10:00-0400 Diastolic blood pressure 70 mm[Hg] Elan Garcia MD Work Phone: [facility] 09-22-2024 10:00-0400 Heart rate 87 /min Elan Garcia MD Work Phone: [facility] 09-22-2024 10:00-0400 Respiratory rate 16 /min Elan Garcia MD Work Phone: [facility] 09-22-2024 10:00-0400 SaO2% (BldA) [Mass fraction] 99 % Elan Garcia MD Work Phone: [facility] 09-22-2024 10:00-0400 Systolic blood pressure 126 mm[Hg] Elan Garcia MD Work Phone: [facility] 07-31-2024 14:06-0400 Body mass index (BMI) [Ratio] 26.85 kg/m2 Edna Podlogar ASSISTANT PROFESSOR SURGICAL TECHNOLOGY.[employer]ING [employer]ER Work Phone: [facility] 07-31-2024 14:06-0400 Body weight 60.3 kg Edna Podlogar ASSISTANT PROFESSOR SURGICAL TECHNOLOGY.BINDING N[employer]ER Work Phone: [facility] 07-31-2024 14:06-0400 Diastolic blood pressure 84 mm[Hg] Edna Podlogar ASSISTANT PROFESSOR SURGICAL TECHNOLOGY.BINDING NICKER Work Phone: [facility] 07-31-2024 14:06-0400 Heart rate 83 /min Edna Podlogar ASSISTANT PROFESSOR SURGICAL TECHNOLOGY.BINDING NICKER Work Phone: [facility] 07-31-2024 14:06-0400 Respiratory rate 18 /min Edna Podlogar ASSISTANT PROFESSOR SURGICAL TECHNOLOGY.BINDING [employer]ER Work Phone: [facility] 07-31-2024 14:06-0400 SaO2% (BldA) [Mass fraction] 98 % Edna Podlogar ASSISTANT PROFESSOR SURGICAL TECHNOLOGY.BINDING NICKER Work Phone: [facility] 07-31-2024 14:06-0400 Systolic blood pressure 136 mm[Hg] Edna Podlogar ASSISTANT PROFESSOR SURGICAL TECHNOLOGY.BINDING NICKER Work Phone: [facility] 06-22-2024 09:56-0400 Body mass index (BMI) [Ratio] 26.54 kg/m2 Elan Garcia MD Work Phone: [facility] 06-22-2024 09:56-0400 Body weight 59.6 kg Elan Garcia MD Work Phone: [facility] 06-22-2024 09:56-0400 Diastolic blood pressure 62 mm[Hg] Elan Garcia MD Work Phone: [facility] 06-22-2024 09:56-0400 Heart rate 78 /min Elan Garcia MD Work Phone: [facility] 06-22-2024 09:56-0400 Respiratory rate 16 /min Elan Garcia MD Work Phone: [facility] 06-22-2024 09:56-0400 SaO2% (BldA) [Mass fraction] 97 % Elan Garcia MD Work Phone: [facility] 06-22-2024 09:56-0400 Systolic blood pressure 108 mm[Hg] Elan Garcia MD Work Phone: [facility] 06-01-2024 09:00-0400 Diastolic blood pressure 78 mm[Hg] McKena Thoennjonatan PT, DPT [facility] 06-01-2024 09:00-0400 Heart rate 70 /min McKena Artisoennjonatan PT, DPT [facility] 06-01-2024 09:00-0400 SaO2% (BldA) [Mass fraction] 100 % McKena Artisoennes PT, DPT [facility] 06-01-2024 09:00-0400 Systolic blood pressure 122 mm[Hg] McKena Artisoennjonatan PT, DPT [facility] 05-13-2024 08:17-0400 Body mass index (BMI) [Ratio] 26.7 kg/m2 Elan Garcia MD Work Phone: [facility] 05-13-2024 08:17-0400 Body temperature 98.4 [degF] Elan Garcia MD Work Phone: [facility] 05-13-2024 08:17-0400 Body weight 59.97 kg Elan Garcia MD Work Phone: [facility] 05-13-2024 08:17-0400 Diastolic blood pressure 76 mm[Hg] Elan Garcia MD Work Phone: [facility] 05-13-2024 08:17-0400 Heart rate 80 /min Elan Garcia MD Work Phone: [facility] 05-13-2024 08:17-0400 Respiratory rate 16 /min Elan Garcia MD Work Phone: [facility] 05-13-2024 08:17-0400 SaO2% (BldA) [Mass fraction] 97 % Elan Garcia MD Work Phone: [facility] 05-13-2024 08:17-0400 Systolic blood pressure 120 mm[Hg] Elan Garcia MD Work Phone: [facility] 03-22-2024 10:09-0400 Body mass index (BMI) [Ratio] 26.58 kg/m2 Edna Podlogar ASSISTANT PROFESSOR SURGICAL TECHNOLOGY.[employer]ING [employer]ER Work Phone: [facility] 03-22-2024 10:09-0400 Body weight 59.69 kg Edna Podlogar ASSISTANT PROFESSOR SURGICAL TECHNOLOGY.[employer] Work Phone: [facility] 03-22-2024 10:09-0400 Diastolic blood pressure 74 mm[Hg] Edna Podlogar ASSISTANT PROFESSOR SURGICAL TECHNOLOGY.[employer] Work Phone: [facility] 03-22-2024 10:09-0400 Heart rate 76 /min Edna Podlogar ASSISTANT PROFESSOR SURGICAL TECHNOLOGY.[employer] Work Phone: [facility] 03-22-2024 10:09-0400 Respiratory rate 18 /min Edna Podlogar ASSISTANT PROFESSOR SURGICAL TECHNOLOGY.[employer] Work Phone: [facility] 03-22-2024 10:09-0400 SaO2% (BldA) [Mass fraction] 97 % Edna Podlogar ASSISTANT PROFESSOR SURGICAL TECHNOLOGY.[employer] Work Phone: [facility] 03-22-2024 10:09-0400 Systolic blood pressure 126 mm[Hg] Edna Podlogar ASSISTANT PROFESSOR SURGICAL TECHNOLOGY.[employer] Work Phone: [facility] 02-28-2024 11:14-0400 Body temperature 98.4 [degF] Edna Podlogar ASSISTANT PROFESSOR SURGICAL TECHNOLOGY.[employer] Work Phone: [facility] 02-28-2024 11:14-0400 Body weight 59.42 kg Edna Podlogar ASSISTANT PROFESSOR SURGICAL TECHNOLOGY.[employer] Work Phone: [facility] 02-28-2024 11:14-0400 Diastolic blood pressure 80 mm[Hg] Edna Podlogar ASSISTANT PROFESSOR SURGICAL TECHNOLOGY.[employer] Work Phone: [facility] 02-28-2024 11:14-0400 Respiratory rate 16 /min Edna Podlogar ASSISTANT PROFESSOR SURGICAL TECHNOLOGY.[employer] Work Phone: [facility] 02-28-2024 11:14-0400 SaO2% (BldA) [Mass fraction] 99 % Edna Podlogar ASSISTANT PROFESSOR SURGICAL TECHNOLOGY.[employer] Work Phone: [facility] 02-28-2024 11:14-0400 Systolic blood pressure 122 mm[Hg] Edna Podlogar ASSISTANT PROFESSOR SURGICAL TECHNOLOGY.[employer] Work Phone: [facility] 02-02-2024 10:13-0400 Body temperature 98.4 [degF] Edna Podlogar ASSISTANT PROFESSOR SURGICAL TECHNOLOGY.[employer] Work Phone: [facility] 02-02-2024 10:130400 Body weight 60.78 kg Edna Podlogar ASSISTANT PROFESSOR SURGICAL TECHNOLOGY.[employer] Work Phone: [facility] 02-02-2024 10:13-0400 Diastolic blood pressure 84 mm[Hg] Edna Podlogar ASSISTANT PROFESSOR SURGICAL TECHNOLOGY.[employer] Work Phone: [facility] 02-02-2024 10:13-0400 Heart rate 71 /min Edna Podlogar ASSISTANT PROFESSOR SURGICAL TECHNOLOGY.[employer] Work Phone: [facility] 02-02-2024 10:13-0400 Respiratory rate 16 /min Edna Podlogar ASSISTANT PROFESSOR SURGICAL TECHNOLOGY.[employer] Work Phone: [facility] 02-02-2024 10:13-0400 SaO2% (BldA) [Mass fraction] 98 % Edna Podlogar ASSISTANT PROFESSOR SURGICAL TECHNOLOGY.[employer] Work Phone: [facility] 02-02-2024 10:13-0400 Systolic blood pressure 126 mm[Hg] Edna Loco APRN.[employer] Work Phone: [facility] 01-29-2024 10:05-0500 Body height 149.9 cm Elan Garcia MD Work Phone: [facility] 01-29-2024 10:05-0500 Body weight 60.33 kg Elan Garcia MD Work Phone: [facility] 01-29-2024 10:05-0500 Diastolic blood pressure 64 mm[Hg] Elan Garcia MD Work Phone: [facility] 01-29-2024 10:05-0500 Heart rate 75 /min Elan Garcia MD Work Phone: [facility] 01-29-2024 10:05-0500 Respiratory rate 12 /min Elan Garcia MD Work Phone: [facility] 01-29-2024 10:05-0500 SaO2% (BldA) [Mass fraction] 99 % Elan Garcia MD Work Phone: [facility] 01-29-2024 10:05-0500 Systolic blood pressure 128 mm[Hg] Elan Garcia MD Work Phone: [facility] 01-23-2024 02:22-0500 Body temperature 98.1 [degF] Dr. Pastor Garcia Work Phone: [facility] 01-23-2024 02:22-0500 Diastolic blood pressure 79 mm[Hg] Dr. Pastor Garcia Work Phone: [facility] 01-23-2024 02:22-0500 Heart rate 81 /min Dr. Pastor Garcia Work Phone: [facility] 01-23-2024 02:22-0500 Respiratory rate 18 /min Dr. Pastor Garcia Work Phone: [facility] 01-23-2024 02:22-0500 SaO2% (BldA) [Mass fraction] 99 % Dr. Pastor Garcia Work Phone: [facility] 01-23-2024 02:22-0500 Systolic blood pressure 166 mm[Hg] Dr. Pastor Garcia Work Phone: [facility] 01-22-2024 22:47-0500 Body height 149.[address] Pastor Garcia Work Phone: [facility] 01-22-2024 22:47-0500 Body mass index (BMI) [Ratio] 27 kg/m2 Dr. Pastor Garcia Work Phone: [facility] 01-22-2024 22:47-0500 Body weight 60.[address] Pastor Garcia Work Phone: [facility] 01-05-2024 13:54-0500 Body height 149.9 cm Elan Garcia MD Work Phone: [facility] 01-05-2024 13:54-0500 Body weight 60.33 kg Elan Garcia MD Work Phone: [facility] 01-05-2024 13:54-0500 Diastolic blood pressure 74 mm[Hg] Elan Garcia MD Work Phone: [facility] 01-05-2024 13:54-0500 Heart rate 80 /min Elan Garcia MD Work Phone: [facility] 01-05-2024 13:54-0500 Respiratory rate 16 /min Elan Garcia MD Work Phone: [facility] 01-05-2024 13:54-0500 Systolic blood pressure 128 mm[Hg] Elan Garcia MD Work Phone: [facility] 11-19-2023 10:32-0500 Body height 149.22 cm [facility] 11-19-2023 10:32-0500 Body mass index (BMI) [Ratio] 26.9 kg/m2 [facility] 11-19-2023 10:32-0500 Body temperature 98 [degF] [facility] 11-19-2023 10:32-0500 Body weight 59.87 kg [facility] 11-19-2023 10:32-0500 Diastolic blood pressure 80 mm[Hg] [facility] 11-19-2023 10:32-0500 Heart rate 80 /min [facility] 11-19-2023 10:32-0500 Respiratory rate 16 /min [facility] 11-19-2023 10:32-0500 SaO2% (BldA) [Mass fraction] 99 % [facility] 11-19-2023 10:32-0500 Systolic blood pressure 151 mm[Hg] [facility] 08-03-2023 09:21-0400 Body temperature 98.1 [degF] Edna Podlogar ASSISTANT PROFESSOR SURGICAL TECHNOLOGY.[employer] Work Phone: [facility] 08-03-2023 09:21-0400 Body weight 61.05 kg Edna Podlogar ASSISTANT PROFESSOR SURGICAL TECHNOLOGY.[employer] Work Phone: [facility] 08-03-2023 09:21-0400 Diastolic blood pressure 76 mm[Hg] Edna Podlogar ASSISTANT PROFESSOR SURGICAL TECHNOLOGY.[employer] Work Phone: [facility] 08-03-2023 09:21-0400 Heart rate 89 /min Edna Podlogar ASSISTANT PROFESSOR SURGICAL TECHNOLOGY.[employer] Work Phone: [facility] 08-03-2023 09:21-0400 Respiratory rate 16 /min Edna Podlogar ASSISTANT PROFESSOR SURGICAL TECHNOLOGY.[employer] Work Phone: [facility] 08-03-2023 09:21-0400 SaO2% (BldA) [Mass fraction] 95 % Edan Podlogar ASSISTANT PROFESSOR SURGICAL TECHNOLOGY.[employer] Work Phone: [facility] 08-03-2023 09:21-0400 Systolic blood pressure 128 mm[Hg] Edna Podlogar ASSISTANT PROFESSOR SURGICAL TECHNOLOGY.[employer] Work Phone: [facility] 05-21-2023 10:26-0400 Body height 149.[address] Pastor Garcia Work Phone: [facility] 05-21-2023 10:26-0400 Body mass index (BMI) [Ratio] 26.2 kg/m2 Dr. Pastor Garcia Work Phone: 5(509)436-938641 [place] [address] 05-21-2023 10:26-0400 Body temperature 96.6 [degF] Dr. Pastor Garcia Work Phone: 4(640)906-966441 [place] [address] 05-21-2023 10:26-0400 Body weight 58.[address] Pastor Garcia Work Phone: 0(325)535-453141 [place] [address] 05-21-2023 10:26-0400 Diastolic blood pressure 72 mm[Hg] Dr. Pastor Garcia Work Phone: 6(136)944-992541 [place] [address] 05-21-2023 10:26-0400 Heart rate 79 /min Dr. Pastor Garcia Work Phone: 2(076)895-548841 [place] [address] 05-21-2023 10:26-0400 Respiratory rate 16 /min Dr. Pastor Garcia Work Phone: 1(967)426-764341 [place] [address] 05-21-2023 10:26-0400 SaO2% (BldA) [Mass fraction] 99 % Dr. Pastor Garcia Work Phone: 3(895)491-816941 [place] [address] 05-21-2023 10:26-0400 Systolic blood pressure 131 mm[Hg] Dr. Pastor Garcia Work Phone: 3(253)444-134341 [place] [address] 05-20-2023 15:34-0400 Body mass index (BMI) [Ratio] 27.1 kg/m2 Dr. Pastor Garcia Work Phone: 2(051)804-607021 [place] [address] 05-20-2023 15:34-0400 Body temperature 98.2 [degF] Dr. Pastor Garcia Work Phone: 0(015)988-956141 [place] [address] 05-20-2023 15:34-0400 Body weight 60.[address] Pastor Garcia Work Phone: 0(479)456-179341 [place] [address] 05-20-2023 15:34-0400 Diastolic blood pressure 80 mm[Hg] Dr. Pastor Garcia Work Phone: 7(330)141-004741 [place] [address] 05-20-2023 15:34-0400 Heart rate 90 /min Dr. Pastor Garcia Work Phone: [facility] 05-20-2023 15:34-0400 Respiratory rate 16 /min Dr. Pastor Garcia Work Phone: [facility] 05-20-2023 15:34-0400 SaO2% (BldA) [Mass fraction] 97 % Dr. Pastor Garcia Work Phone: [facility] 05-20-2023 15:34-0400 Systolic blood pressure 156 mm[Hg] Dr. Pastor Garcia Work Phone: [facility] 05-07-2023 13:56-0400 Body height 149.3 cm Brian Ashton MD Work Phone: [facility] 05-07-2023 13:56-0400 Body temperature 98.1 [degF] Brian Ashton MD Work Phone: [facility] 05-07-2023 13:56-0400 Body weight 59.65 kg Brian Ashton MD Work Phone: [facility] 05-07-2023 13:56-0400 Diastolic blood pressure 82 mm[Hg] Brian Ashton MD Work Phone: [facility] 05-07-2023 13:56-0400 Heart rate 69 /min Brian Ashton MD Work Phone: [facility] 05-07-2023 13:56-0400 Respiratory rate 18 /min Brian Ashton MD Work Phone: [facility] 05-07-2023 13:56-0400 SaO2% (BldA) [Mass fraction] 100 % Brian Ashton MD Work Phone: [facility] 05-07-2023 13:56-0400 Systolic blood pressure 157 mm[Hg] Brian Ashton MD Work Phone: [facility] 04-02-2023 15:11-0400 Body mass index (BMI) [Ratio] 25.7 kg/m2 Dr. Pastor Garcia Work Phone: 5(972)271-799041 [place] [address] 04-02-2023 14:22-0400 Body temperature 98.6 [degF] Dr. Pastor Garcia Work Phone: 4(955)560-669041 [place] [address] 04-02-2023 14:22-0400 Diastolic blood pressure 75 mm[Hg] Dr. Pastor Garcia Work Phone: 6(470)038-808941 [place] [address] 04-02-2023 14:22-0400 Heart rate 65 /min Dr. Pastor Garcia Work Phone: 2(740)540-159741 [place] [address] 04-02-2023 14:22-0400 Respiratory rate 16 /min Dr. Pastor Garcia Work Phone: 0(494)615-952041 [place] [address] 04-02-2023 14:22-0400 SaO2% (BldA) [Mass fraction] 99 % Dr. Pastor Garcia Work Phone: 5(670)576-147241 [place] [address] 04-02-2023 14:22-0400 Systolic blood pressure 120 mm[Hg] Dr. Pastor Garcia Work Phone: 6(043)907-229941 [place] [address] 04-01-2023 22:20-0400 Body height 149.[address] Pastor Garcia Work Phone: 5(626)232-154741 [place] [address] 04-01-2023 22:20-0400 Body weight 57.[address] Pastor Garcia Work Phone: 9(669)456-048841 [place] [address] 04-01-2023 21:06-0400 Body temperature 98 [degF] Dr. Pastor Garcia Work Phone: 8(597)475-217541 [place] [address] 04-01-2023 21:06-0400 Diastolic blood pressure 77 mm[Hg] Dr. Pastor Garcia Work Phone: 3(071)402-809241 [place] [address] 04-01-2023 21:06-0400 Heart rate 81 /min Dr. Pastor Garcia Work Phone: 2(274)021-734241 [place] [address] 04-01-2023 21:06-0400 Respiratory rate 16 /min Dr. Pastor Garcia Work Phone: [facility] 04-01-2023 21:06-0400 SaO2% (BldA) [Mass fraction] 97 % Dr. Pastor Garcia Work Phone: [facility] 04-01-2023 21:06-0400 Systolic blood pressure 163 mm[Hg] Dr. Pastor Garcia Work Phone: [facility] 04-01-2023 17:51-0400 Body height 150.[address] Pastor Garcia Work Phone: [facility] 04-01-2023 17:51-0400 Body mass index (BMI) [Ratio] 26.5 kg/m2 Dr. Pastor Garcia Work Phone: [facility] 04-01-2023 17:51-0400 Body weight 59.[address] Pastor Garcia Work Phone: [facility] 03-08-2023 10:23-0400 Body weight 58.24 kg Edna Podlogar ASSISTANT PROFESSOR SURGICAL TECHNOLOGY.[employer] Work Phone: [facility] 03-08-2023 10:23-0400 Diastolic blood pressure 76 mm[Hg] Edna Podlogar ASSISTANT PROFESSOR SURGICAL TECHNOLOGY.[employer] Work Phone: [facility] 03-08-2023 10:23-0400 Heart rate 82 /min Edna Podlogar ASSISTANT PROFESSOR SURGICAL TECHNOLOGY.[employer] Work Phone: [facility] 03-08-2023 10:23-0400 Respiratory rate 18 /min Edna Podlogar ASSISTANT PROFESSOR SURGICAL TECHNOLOGY.[employer] Work Phone: [facility] 03-08-2023 10:23-0400 SaO2% (BldA) [Mass fraction] 98 % Edna Podlogar ASSISTANT PROFESSOR SURGICAL TECHNOLOGY.[employer]ING [employer] Work Phone: [facility] 03-08-2023 10:23-0400 Systolic blood pressure 102 mm[Hg] Edna Podlogar ASSISTANT PROFESSOR SURGICAL TECHNOLOGY.[employer] Work Phone: [facility] 11-10-2022 13:27-0500 Body height 149.86 cm [facility] Work Phone: 11-10-2022 13:27-0500 Body mass index (BMI) [Ratio] 26.2 kg/m2 [facility] Work Phone: 11-10-2022 13:27-0500 Body temperature 97.2 [degF] [facility] Work Phone: 11-10-2022 13:27-0500 Body weight 58.96 kg [facility] Work Phone: 11-10-2022 13:27-0500 Diastolic blood pressure 71 mm[Hg] [facility] Work Phone: 11-10-2022 13:27-0500 Heart rate 86 /min [facility] Work Phone: 11-10-2022 13:27-0500 Respiratory rate 14 /min [facility] Work Phone: 11-10-2022 13:27-0500 Systolic blood pressure 129 mm[Hg] [facility] Work Phone: 10-21-2022 09:09-0500 Body temperature 98.49 [degF] Edna Podlogar ASSISTANT PROFESSOR SURGICAL TECHNOLOGY.[employer] Work Phone: [facility] 10-21-2022 09:09-0500 Body weight 59.78 kg Edna Podlogar ASSISTANT PROFESSOR SURGICAL TECHNOLOGY.[employer] Work Phone: [facility] 10-21-2022 09:09-0500 Diastolic blood pressure 78 mm[Hg] Edna Podlogar ASSISTANT PROFESSOR SURGICAL TECHNOLOGY.[employer] Work Phone: [facility] 10-21-2022 09:09-0500 Heart rate 88 /min Edna Podlogar ASSISTANT PROFESSOR SURGICAL TECHNOLOGY.[employer] Work Phone: [facility] 10-21-2022 09:09-0500 Respiratory rate 16 /min Edna Podlogar ASSISTANT PROFESSOR SURGICAL TECHNOLOGY.[employer]ING [employer]ER Work Phone: [facility] 10-21-2022 09:09-0500 SaO2% (BldA) [Mass fraction] 99 % Edna Podlogar ASSISTANT PROFESSOR SURGICAL TECHNOLOGY.B[employer]ING [employer]ER Work Phone: [facility] 10-21-2022 09:09-0500 Systolic blood pressure 132 mm[Hg] Edna Podlogar ASSISTANT PROFESSOR SURGICAL TECHNOLOGY.[employer]ING [employer]ER Work Phone: [facility] 07-17-2022 08:03-0400 Body weight 60.51 kg Elan Garcia MD Work Phone: [facility] 07-17-2022 08:03-0400 Diastolic blood pressure 66 mm[Hg] Elan Garcia MD Work Phone: [facility] 07-17-2022 08:03-0400 Heart rate 82 /min Elan Garcia MD Work Phone: [facility] 07-17-2022 08:03-0400 Respiratory rate 16 /min Elan Garcia MD Work Phone: [facility] 07-17-2022 08:03-0400 SaO2% (BldA) [Mass fraction] 99 % Elan Garcia MD Work Phone: [facility] 07-17-2022 08:03-0400 Systolic blood pressure 114 mm[Hg] Elan Garcia MD Work Phone: [facility] 06-22-2022 11:30-0400 Body temperature 97.5 [degF] Edna Podlogar ASSISTANT PROFESSOR SURGICAL TECHNOLOGY.[employer] Work Phone: [facility] 06-22-2022 11:30-0400 Body weight 60.24 kg Edna Podlogar ASSISTANT PROFESSOR SURGICAL TECHNOLOGY.[employer]ING [employer]ER Work Phone: [facility] 06-22-2022 11:30-0400 Diastolic blood pressure 74 mm[Hg] Edna Podlogar ASSISTANT PROFESSOR SURGICAL TECHNOLOGY.[employer]ING [employer] Work Phone: [facility] 06-22-2022 11:30-0400 Heart rate 71 /min Edna Podlogar ASSISTANT PROFESSOR SURGICAL TECHNOLOGY.B[employer]ING [employer]ER Work Phone: [facility] 06-22-2022 11:30-0400 Respiratory rate 18 /min Edna Podlogar ASSISTANT PROFESSOR SURGICAL TECHNOLOGY.B[employer]ING [employer]ER Work Phone: [facility] 06-22-2022 11:30-0400 SaO2% (BldA) [Mass fraction] 98 % Edna Podlogar ASSISTANT PROFESSOR SURGICAL TECHNOLOGY.B[employer]ING [employer]ER Work Phone: [facility] 06-22-2022 11:30-0400 Systolic blood pressure 122 mm[Hg] Edna Podlogar ASSISTANT PROFESSOR SURGICAL TECHNOLOGY.[employer]ING [employer]ER Work Phone: [facility] 06-15-2022 13:39-0400 Body height 147.3 cm Mitul Masci DO Work Phone: [facility] 06-15-2022 13:39-0400 Body temperature 98.49 [degF] Mitul Masci DO Work Phone: [facility] 06-15-2022 13:39-0400 Body weight 60.33 kg Mitul Masci DO Work Phone: [facility] 06-15-2022 13:39-0400 Diastolic blood pressure 77 mm[Hg] Mitul Masci DO Work Phone: [facility] 06-15-2022 13:39-0400 Heart rate 85 /min Mitul Masci DO Work Phone: [facility] 06-15-2022 13:39-0400 Systolic blood pressure 131 mm[Hg] Mitul Masci DO Work Phone: [facility] 06-03-2022 09:27-0400 Body temperature 97.81 [degF] Elan Garcia MD Work Phone: [facility] 06-03-2022 09:27-0400 Body weight 59.42 kg Elan Garcia MD Work Phone: [facility] 06-03-2022 09:27-0400 Diastolic blood pressure 76 mm[Hg] Elan Garcia MD Work Phone: [facility] 06-03-2022 09:27-0400 Heart rate 64 /min Elan Garcia MD Work Phone: [facility] 06-03-2022 09:27-0400 Respiratory rate 16 /min Elan Garcia MD Work Phone: [facility] 06-03-2022 09:27-0400 Systolic blood pressure 112 mm[Hg] Elan Garcia MD Work Phone: [facility] 05-12-2022 13:14-0400 Body height 149.[address] Kasey Bashir Work Phone: [facility] Work Phone: 05-12-2022 13:14-0400 Body mass index (BMI) [Ratio] 26.6 kg/m2 Dr. Kasey Bashir Work Phone: [facility] Work Phone: 05-12-2022 13:14-0400 Body temperature 96.7 [degF] Dr. Kasey Bashir Work Phone: [facility] Work Phone: 05-12-2022 13:14-0400 Body weight 59.[address] Kasey Bashir Work Phone: [facility] Work Phone: 05-12-2022 13:14-0400 Diastolic blood pressure 70 mm[Hg] Dr. Kasey Bashir Work Phone: [facility] Work Phone: 05-12-2022 13:14-0400 Heart rate 83 /min Dr. Kasey Bashir Work Phone: [facility] Work Phone: 05-12-2022 13:14-0400 Respiratory rate 12 /min Dr. Kasey Bashir Work Phone: [facility] Work Phone: 05-12-2022 13:14-0400 SaO2% (BldA) [Mass fraction] 98 % Dr. Kasey Bashir Work Phone: [facility] Work Phone: 05-12-2022 13:14-0400 Systolic blood pressure 124 mm[Hg] Dr. Kasey Bashir Work Phone: [facility] Work Phone: 05-11-2022 14:11-0400 Body temperature 98.01 [degF] Elan Garcia MD Work Phone: [facility] 05-11-2022 14:11-0400 Body weight 59.97 kg Elan Garcia MD Work Phone: [facility] 05-11-2022 14:11-0400 Diastolic blood pressure 80 mm[Hg] Elan Garcia MD Work Phone: [facility] 05-11-2022 14:11-0400 Heart rate 76 /min Elan Garcia MD Work Phone: [facility] 05-11-2022 14:11-0400 Respiratory rate 16 /min Elan Garcia MD Work Phone: [facility] 05-11-2022 14:11-0400 SaO2% (BldA) [Mass fraction] 99 % Elan Garcia MD Work Phone: [facility] 05-11-2022 14:11-0400 Systolic blood pressure 122 mm[Hg] Elan Garcia MD Work Phone: [facility] 04-30-2022 09:33-0400 Body temperature 97.4 [degF] Dr. Kasey Bashir Work Phone: [facility] Work Phone: 04-30-2022 09:33-0400 Diastolic blood pressure 76 mm[Hg] Dr. Kasey Bashir Work Phone: [facility] Work Phone: 04-30-2022 09:33-0400 Heart rate 77 /min Dr. Kasey Bashir Work Phone: [facility] Work Phone: 04-30-2022 09:33-0400 Respiratory rate 14 /min Dr. Kasey Bashir Work Phone: [facility] Work Phone: 04-30-2022 09:33-0400 SaO2% (BldA) [Mass fraction] 98 % Dr. Kasey Bashir Work Phone: [facility] Work Phone: 04-30-2022 09:33-0400 Systolic blood pressure 128 mm[Hg] Dr. Kasey Bashir Work Phone: [facility] Work Phone: 04-13-2022 13:44-0400 Body temperature 98.01 [degF] Edna Podlogar ASSISTANT PROFESSOR SURGICAL TECHNOLOGY.[employer]ING [employer] Work Phone: [facility] 04-13-2022 13:44-0400 Body weight 60.96 kg Edna Podlogar ASSISTANT PROFESSOR SURGICAL TECHNOLOGY.[employer]ING [employer] Work Phone: [facility] 04-13-2022 13:44-0400 Diastolic blood pressure 62 mm[Hg] Edna Podlogar ASSISTANT PROFESSOR SURGICAL TECHNOLOGY.[employer] Work Phone: [facility] 04-13-2022 13:44-0400 Heart rate 85 /min Edna Podlogar ASSISTANT PROFESSOR SURGICAL TECHNOLOGY.B[employer]ING [employer] Work Phone: [facility] 04-13-2022 13:44-0400 Respiratory rate 18 /min Edna Podlogar ASSISTANT PROFESSOR SURGICAL TECHNOLOGY.B[employer]ING [employer] Work Phone: [facility] 04-13-2022 13:44-0400 SaO2% (BldA) [Mass fraction] 100 % Edna Podlogar ASSISTANT PROFESSOR SURGICAL TECHNOLOGY.[employer]ING [employer]ER Work Phone: [facility] 04-13-2022 13:44-0400 Systolic blood pressure 108 mm[Hg] Edna Podlogar ASSISTANT PROFESSOR SURGICAL TECHNOLOGY.[employer]ING [employer] Work Phone: [facility] 03-20-2022 14:09-0400 Body weight 61.33 kg Elan Garcia MD Work Phone: [facility] 03-20-2022 14:09-0400 Diastolic blood pressure 68 mm[Hg] Elan aGrcia MD Work Phone: [facility] 03-20-2022 14:09-0400 Heart rate 85 /min Elan Garcia MD Work Phone: [facility] 03-20-2022 14:09-0400 Respiratory rate 16 /min Elan Garcia MD Work Phone: [facility] 03-20-2022 14:09-0400 SaO2% (BldA) [Mass fraction] 97 % Elan Garcia MD Work Phone: [facility] 03-20-2022 14:09-0400 Systolic blood pressure 128 mm[Hg] Elan Garcia MD Work Phone: [facility] 04-24-2021 09:30-0400 Body mass index (BMI) [Ratio] 25.6 kg/m2 Dr. Kasey Bashir Work Phone: [facility] Work Phone: Encounters Encounter Date Encounter Type Care Provider Facility Start: 06-19-[address] [facility] Facility:[facility] Start: 06-08-2025 End: 06-08-[address] Pastor Garcia MD Work Phone: -Ultrasound [facility] Start: 06-08-2025 End: 06-08-[address] Yon Salas MD -Ultrasound [facility] Work Phone: Start: 06-08-2025 End: 06-08-2025 ambulatory Yon Salas Facility:[facility] Start: 06-06-2025 End: 06-06-[address] Pastor Garcia MD Work Phone: -Cat Scan [facility] Start: 06-06-2025 End: 06-06-[address] Yon Salas MD -Cat Scan [facility] Work Phone: Start: 06-05-2025 End: 06-06-[address] Pastor Garcia MD Work Phone: -Laboratory Phy [facility] 3rd Flr Start: 06-05-2025 End: 06-05-[address] Yon Salas MD -Laboratory Phy Office 3rd Msr Start: 06-04-2025 End: 06-05-[address] Pastor Garcia MD Work Phone: -Laboratory Start: 06-04-2025 End: 06-04-2025 Patient encounter procedure Dr. Yon Salas MD -Laboratory Work Phone: Start: 06-04-2025 End: 06-04-2025 ambulatory [facility] Facility:[facility] Start: 05-21-2025 End: 05-21-[address] Pastor Garcia MD Work Phone: -Radiology [facility] Start: 05-21-2025 End: 05-21-[address] Yon Salas MD -Radiology [facility] Work Phone: Start: 05-21-2025 End: 05-21-2025 ambulatory [facility] Facility:[facility] Start: 05-18-2025 End: 05-18-[address] Lei Sung MD -[facility] Work Phone: Start: 05-18-2025 End: 05-18-[address] Pastor Garcia MD Work Phone: -[facility] Start: 01-11-2025 End: 01-11-2025 ambulatory [facility] Facility:[facility] Start: 12-12-2024 End: 12-13-2024 Telephone encounter Elan Garcia MD Work Phone: [facility] [place] Comment on above: Patient Question Start: 11-20-2024 End: 11-20-2024 Telephone encounter Elan Garcia MD Work Phone: [facility] [place] Comment on above: Medication Question Start: 11-17-2024 End: 11-17-2024 ambulatory Lei Sung Facility:[facility] Start: 11-13-2024 End: 11-13-2024 ambulatory [facility] Start: 11-13-2024 End: 11-13-2024 Patient encounter procedure Connor Carpenter [facility] Comment on above: Population Health Na vigation Outreach ([employer] AWV Initiative) Start: 10-27-2024 End: 10-27-2024 Patient encounter procedure Edna Loco APRN.BINDING NICKER Work Phone: [facility] [place] Comment on above: Essential hypertensi on (Primary Dx); Stage 3a chronic kidney disease (HCC); Gastroesophageal reflux disease without esophagitis; Acquired hypothyroidism; Hypopituitarism (HCC) Start: 10-27-2024 End: 10-27-2024 ambulatory ELAN GARCIA Facility:[facility] Start: 09-26-2024 End: 09-27-2024 Telephone encounter Adeline Butler APRN.BINDING NICKER Work Phone: [facility] [place] Comment on above: Results Start: 09-25-2024 End: 09-25-2024 Patient encounter procedure Adeline Butler APRN.BINDING NICKER Work Phone: [facility] [place] Comment on above: Acute left-sided low back pain with left-sided sciatica (Primary Dx); Lower abdominal tenderness Start: 09-25-2024 End: 09-25-2024 ambulatory ELAN GARCIA Facility:[facility] Start: 09-22-2024 End: 09-22-2024 Patient encounter procedure Elan Garcia MD Work Phone: [facility] [place] Comment on above: Acute bilateral low back pain with right-sided sciatica (Primary Dx); Essential hypertension; Mixed hyperlipidemia; Stage 3a chronic kidney disease (HCC) Start: 09-22-2024 End: 09-22-2024 ambulatory ELAN GARCIA Facility:[facility] Start: 08-23-2024 End: 08-23-2024 Refill Elan Garcia MD Work Phone: [facility] [place] Comment on above: Refill Request Start: 08-03-2024 End: 08-03-2024 Telephone encounter Sally Singh APRN.BINDING NICKER Work Phone: [facility] [place] Comment on above: Results Start: 08-03-2024 End: 08-03-2024 ambulatory ELAN GARCIA Facility:[facility] Start: 08-03-2024 End: 08-03-2024 Subsequent hospital visit by physician [facility] Work Phone: Radiology Comment on above: Pain in right lower leg [M79.661] Start: 07-31-2024 End: 07-31-2024 Patient encounter procedure Edna Loco APRN.BINDING NICKER Work Phone: [facility] Comment on above: Pain in right lower leg (Primary Dx) Start: 07-31-2024 End: 07-31-2024 ambulatory ELAN GARCIA Facility:[facility] Start: 06-23-2024 End: 06-23-2024 ambulatory Catherine Valles PT [facility] Comment on above: Fall in home, initia l encounter (Primary Dx); Closed fracture of ramus of right pubis with routine healing, subsequent encounter Start: 06-22-2024 End: 06-22-2024 ambulatory ELAN GARCIA Facility:[facility] Start: 06-22-2024 End: 06-22-2024 Patient encounter procedure Elan Garcia MD Work Phone: [facility] Comment on above: Fall in home, subseq uent encounter (Primary Dx); Closed fracture of ramus of right pubis with routine healing, subsequent encounter; Other fracture of unspecified thoracic vertebra, initial encounter for closed fracture (HCC); Stage 3a chronic kidney disease (HCC) Start: 06-13-2024 End: 06-13-2024 ambulatory Barbara Ahumada FIELD MANAGER Work Phone: [facility] Comment on above: Fall in home, initia l encounter (Primary Dx); Closed fracture of ramus of right pubis with routine healing, subsequent encounter Start: 06-02-2024 Telephone encounter [facility] Comment on above: Patient Question Start: 06-01-2024 End: 06-01-2024 ambulatory Jg Howard PT, DPT [place] [facility] Comment on above: Fall in home, subseq uent encounter (Primary Dx); Other fracture of unspecified thoracic vertebra, initial encounter for closed fracture (HCC); Closed fracture of ramus of right pubis with routine healing, subsequent encounter Start: 05-24-2024 End: 05-24-2024 ambulatory ELAN GARCIA Facility:[facility] Start: 05-24-2024 End: 05-24-2024 Subsequent hospital visit by physician [facility] [place] Work Phone: Radiology Comment on above: Fall in home, subseq uent encounter [W19.XXXD, Y92.009] Start: 05-13-2024 End: 05-13-2024 ambulatory ELAN GARCIA Facility:[facility] Start: 05-13-2024 End: 05-13-2024 Patient encounter procedure Elan Garcia MD Work Phone: [facility] Comment on above: Fall in home, subseq uent encounter (Primary Dx); Other fracture of unspecified thoracic vertebra, initial encounter for closed fracture (HCC); Closed fracture of ramus of right pubis with routine healing, subsequent encounter Start: 04-26-2024 Refill Elan Garcia MD Work Phone: [facility] Comment on above: Refill Request Start: 03-22-2024 End: 03-22-2024 ambulatory ELAN GARCIA Facility:[facility] Start: 03-22-2024 End: 03-22-2024 Patient encounter procedure Edna Loco APRN.BINDING NICKER Work Phone: [facility] Comment on above: Essential hypertensi on (Primary Dx); Disease of pituitary gland (HCC); Pituitary adenoma (HCC); Stage 3a chronic kidney disease (HCC); Acquired hypothyroidism; Mixed hyperlipidemia; Hypopituitarism (HCC); Screening for depression; Gastroesophageal reflux disease without esophagitis Start: 02-28-2024 End: 02-28-2024 ambulatory ELAN GARCIA Facility:[facility] Start: 02-28-2024 End: 02-28-2024 Patient encounter procedure Edna Loco APRN.BINDING NICKER Work Phone: [facility] Comment on above: Upper respiratory tr act infection, unspecified type (Primary Dx) Start: 02-23-2024 Refill Elan Garcia MD Work Phone: [facility] Comment on above: Refill Request Start: 02-02-2024 End: 02-02-2024 Patient encounter procedure Edna Loco APRN.BINDING NICKER Work Phone: [facility] Comment on above: Daron infection (P rimary Dx) Start: 02-02-2024 End: 02-02-2024 ambulatory ELAN GARCIA Facility:[facility] Start: 01-31-2024 Telephone encounter Pastor Garcia MD Work Phone: [facility] Comment on above: rectal issue Start: 01-29-2024 End: 01-29-2024 Patient encounter procedure Elan Garcia MD Work Phone: [facility] Comment on above: Colitis (Primary Dx) ; Allergic reaction to contrast material, initial encounter; Stage 3a chronic kidney disease (HCC) Start: 01-29-2024 End: 01-29-2024 ambulatory ELAN GARCIA Facility:[facility] Start: 01-24-2024 Telephone encounter Pastor Garcia MD Work Phone: [facility] Comment on above: ER F/U; Nausea Start: 01-22-2024 End: 01-23-2024 Emergency department patient [facility] Start: 01-11-2024 End: 01-11-[address] Pastor Garcia Work Phone: [facility] Start: 01-05-2024 End: 01-05-2024 Subsequent hospital visit by 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 Comment on above: Leg Pain Start: 12-01-2023 End: 12-01-2023 Subsequent hospital visit by physician [facility] Work Phone: Radiology Comment on above: Rib pain on right si de [R07.81] Start: 11-19-2023 End: 11-19-2023 ambulatory [facility] Work Phone: Start: 11-19-2023 End: 11-19-2023 Patient encounter procedure [facility] Work Phone: Start: 10-08-2023 Telephone encounter Pastor Garcia MD Work Phone: [facility] Comment on above: medication replaceme nt request Start: 08-09-2023 Telephone encounter Edna barraza APRN.BINDING NICKER Work Phone: [facility] Comment on above: Results Start: 08-03-2023 End: 08-03-2023 Patient encounter procedure Edna Loco APRN.BINDING NICKER Work Phone: [facility] Comment on above: Vaginal discharge (P rimary Dx); Vaginal itching Start: 07-21-2023 End: 07-21-[address] Pastor Garcia Work Phone: [facility] Work Phone: Start: 07-21-2023 End: 07-21-[address] Pastor Garcia Work Phone: [facility]Laboratory Work Phone: Start: 05-21-2023 End: 05-21-[address] Pastor Garcia Work Phone: [facility] Work Phone: Start: 05-21-2023 End: 05-21-[address] Pastor Garcia Work Phone: [facility] Work Phone: Start: 05-20-2023 End: 05-20-[address] Pastor Garcia Work Phone: [facility] Work Phone: Start: 05-20-2023 End: 05-20-[address] Pastor Garcia Work Phone: [facility] Work Phone: Start: 05-07-2023 End: 05-07-2023 Patient encounter procedure Brian Ashton MD Work Phone: [facility] Comment on above: Pituitary adenoma (H CC) (Primary Dx) Start: 04-02-2023 Non-patient / Non-visit Dr. Camilo Garcia Work Phone: [facility] Start: 04-02-2023 Non-patient / Non-visit Dr. Camilo Garcia Work Phone: [facility] Start: 04-01-2023 End: 04-02-2023 Evaluation and management of inpatient Dr. Pastor Garcia Work Phone: [facility]-Progressive Care Unit Start: 04-01-2023 End: 04-02-[address] Pastor Garcia Work Phone: [facility] Work Phone: Start: 04-01-2023 Non-patient / Non-visit Dr. Camilo Garcia Work Phone: [facility] Start: 03-16-2023 ambulatory [facility] Provider [facility] [place] Comment on above: Results Start: 03-16-2023 E-mail encounter maeve m caregiver [facility] Provider [facility] [place] Start: 03-08-2023 End: 03-08-2023 Patient encounter procedure Edna Loco APRN.BINDING NICKER Work Phone: [facility] Comment on above: Essential hypertensi on (Primary Dx); Hypopituitarism (HCC); Glucocorticoid deficiency (HCC); Senile osteoporosis Start: 02-24-2023 Refill Elan Garcia MD Work Phone: [facility] Comment on above: Refill Request Start: 11-10-2022 End: 11-10-2022 ambulatory [facility] Work Phone: Start: 11-10-2022 End: 11-10-2022 Patient encounter procedure [facility] Start: 10-21-2022 Telephone encounter Edna barraza APRN.BINDING NICKER Work Phone: [facility] Comment on above: Results Start: 10-21-2022 End: 10-21-2022 Subsequent hospital visit by physician Janna [facility] Work Phone: Radiology Comment on above: Expiratory wheezing [R06.2] Start: 10-21-2022 End: 10-21-2022 Patient encounter procedure Edna Loco APRN.BINDING NICKER Work Phone: [facility] Comment on above: Acute cough (Primary Dx); Expiratory wheezing Start: 07-20-2022 Telephone encounter Pastor Garcia MD Work Phone: [facility] Comment on above: Results Start: 07-17-2022 End: 07-17-2022 Subsequent hospital visit by physician Janna [facility] Work Phone: Radiology Comment on above: Wrist pain, right [M 25.531] Start: 07-17-2022 End: 07-17-2022 Patient encounter procedure Elan Garcia MD Work Phone: [facility] Comment on above: Wrist pain, right (P rimary Dx); Hand pain, right; Screening mammogram for breast cancer Start: 07-15-2022 Telephone encounter Pastor Garcia MD Work Phone: [facility] Comment on above: Erroneous encounter- disregard Start: 07-04-2022 Telephone encounter Mitul pugh DO Work Phone: Hematology/Oncology Comment on above: Results (BCR/ABL Neg ative) Start: 06-30-2022 Telephone encounter Pastor Garcia MD Work Phone: [facility] Comment on above: Patient Update Start: 06-22-2022 End: 06-22-2022 Patient encounter procedure Edna Loco APRN.CNP Work Phone: [facility] [place] Comment on above: Fall, subsequent enc ounter [...] procedure Mitul Sánchez DO Work Phone: [place] [facility] Start: 06-03-2022 End: 06-03-2022 Patient encounter procedure Elan Garcia MD Work Phone: [facility] [place] Comment on above: Leukocytosis, unspec ified type (Primary Dx); Neutrophilia; Essential hypertension; Mixed hyperlipidemia; Hypopituitarism (HCC); Gastroesophageal reflux disease without esophagitis; Stage 3a chronic kidney disease (HCC); Vaginal irritation Start: 06-01-2022 End: 06-01-2022 Subsequent hospital visit by physician [facility] [place] Work Phone: Radiology Comment on above: Neutrophilia [D72.9] Start: 05-29-2022 Telephone encounter Pastor Garcia MD Work Phone: [facility] Comment on above: Results Start: 05-15-2022 Telephone encounter Edna barraza APRN.BINDING NICKER Work Phone: [facility] Comment on above: Orders Start: 05-13-2022 Telephone encounter Pastor Garcia MD Work Phone: [facility] Comment on above: Results Start: 05-12-2022 Telephone encounter Pastor Garcia MD Work Phone: [facility] Comment on above: Results Start: 05-12-2022 End: 05-12-2022 Subsequent hospital visit by physician [facility] ([facility]) Work Phone: Cat Scan Comment on above: Leukocytosis, unspec ified type [D72.829] Start: 05-12-2022 End: 05-12-[address] Kasey Bashir Work Phone: [facility] Start: 05-11-2022 End: 05-11-2022 Patient encounter procedure Elan Garcia MD Work Phone: [facility] Comment on above: Leukocytosis, unspec ified type (Primary Dx); Abdominal pain, generalized Start: 05-01-2022 Telephone encounter Pastor Garcia MD Work Phone: [facility] Comment on above: labs coming from Dr Sung office Start: 04-30-2022 End: 04-30-[address] Kasey Bashir Work Phone: [facility]Laboratory, [facility] Start: 04-30-2022 End: 04-30-[address] Kasey Bashir Work Phone: [facility] Start: 04-23-2022 Telephone encounter Pastor Garcia MD Work Phone: [facility] Comment on above: Lab Orders Start: 04-14-2022 Telephone encounter Edna barraza APRN.BINDING NICKER Work Phone: [facility] Comment on above: Results Start: 04-13-2022 End: 04-13-2022 Patient encounter procedure Edna Loco SHELLY.BINDING NICKER Work Phone: [facility] Comment on above: Vaginal irritation ( Primary Dx) Start: 03-20-2022 End: 03-20-2022 Subsequent [facility] visit [facility] Work Phone: [facility] Comment on above: Chronic bilateral lo w back pain without sciatica [M54.50, G89.29] Start: 03-20-2022 End: 03-20-2022 Patient encounter procedure Elan Garcia MD Work Phone: [facility] Comment on above: Chronic bilateral lo w back pain without sciatica (Primary Dx); Chronic pain of both hips; Fall in home, initial encounter Start: 01-16-2022 Telephone encounter Pastor Garcia MD Work Phone: [facility] Comment on above: Results Start: 05-30-2021 End: 05-30-2021 Subsequent hospital visit by physician [facility] [place] Work Phone: Radiology Comment on above: Foot pain, left [M79 .672] Start: 12-20-2020 End: 12-20-2020 Subsequent hospital visit by physician [facility] [place] Work Phone: Radiology Comment on above: Cough [R05] Start: 11-19-2020 End: 11-19-2020 Subsequent hospital visit by physician [facility] [place] Work Phone: Radiology Comment on above: Acute bilateral low back pain without sciatica [M54.5] Start: 10-28-2018 End: 10-28-2018 Patient encounter procedure [facility] Start: 04-22-2009 End: 04-15-2016 Patient encounter status Edna Loco SHELLY.BINDING NICKER Work Phone: [facility] Work Phone: Procedures Date Procedure Procedure Detail Performing Clinician Start: 06-08-2025 Complete ultrasound of kidneys and bladder Dr. Pastor Garcia MD Work Phone: Start: 06-06-2025 CT of abdomen and pe lvis without contrast Dr. Pastor Garcia MD Work Phone: Start: 06-05-2025 Urnls dip stick/tabl et reagent auto microscopy Dr. Pastor Garcia MD Work Phone: Start: 06-05-[address] Jeff Garcia MD Work Phone: Start: 05-21-2025 X-ray of cervical spine Dr. Pastor Garcia MD Work Phone: Start: 05-21-2025 X-ray of lumbosacral spine Dr. Pastor Garcia MD Work Phone: Start: 05-21-2025 X-ray of thoracic sp ine, three views Dr. Pastor Garcia MD Work Phone: Start: 09-25-2024 Urnls dip stick/tabl et rgnt auto w/o microscopy Adeline Butler ASSISTANT PROFESSOR SURGICAL TECHNOLOGY.BINDING NICKER Work Phone: Start: 08-03-2024 Dup-scan xtr veins unilateral/limited study 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 SURGICAL TECHNOLOGY.BINDING NICKER Work Phone: Start: 05-24-2024 Radex hip unilateral [...] stick/tabl et rgnt auto w/o microscopy 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 SURGICAL TECHNOLOGY.BINDING NICKER Work Phone: Start: 04-02-2023 Magnetic resonance angiography of head without contrast Dr. Pastor Garcia Work Phone: Start: 04-02-2023 Magnetic resonance angiography of neck without contrast Dr. Pastor Garcia Work Phone: Start: 04-02-2023 MRI of brain without contrast Dr. Pastor Garcia Work Phone: Start: 04-01-2023 CT of head without contrast Dr. Pastor Gacria Work Phone: Start: 10-21-2022 Radiologic exam ches t 2 views 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 SURGICAL TECHNOLOGY.BINDING NICKER Work Phone: Start: 07-17-2022 Radex hand minimum [...] complete minimum 3 views Edna Podlogjose angel ASSISTANT PROFESSOR SURGICAL TECHNOLOGY.BINDING NICKER Work Phone: Start: 04-22-2021 Adult depression screening assessment Elan Garcia MD Work Phone: Start: 12-20-2020 Radiologic exam ches t 2 views Cary Smith ASSISTANT PROFESSOR SURGICAL TECHNOLOGY.BINDING NICKER Work Phone: Start: 11-19-2020 Radex spine lumbosac ral 2/3 views Elan Garcia MD Work Phone: Start: 07-17-2019 Colonoscopy Pastor Garcia MD Work Phone: Plan of Treatment Date Care Activity Detail Author Start: 03-01-2030 Urine microalbumin profile [facility] Start: 09-25-2027 Diabetes Screening Diabetes Screenvt g [facility] Start: 06-22-2027 [facility] Start: 05-11-2027 LIPID SCREEN LIPID SCREEN [facility] Start: 01-28-2027 Diabetes Screening Diabetes Screenin g [facility] Start: 12-01-2026 Diabetes Screening Diabetes Screenvt g [facility] Start: 09-22-2026 [facility] Start: 04-16-2026 LIPID SCREEN LIPID SCREEN [facility] Start: 03-15-2026 DIABETES SCREEN DIABETES SCREEN [facility] Start: 03-15-2026 Diabetes Screening Diabetes Screenvt g [facility] Start: 12-08-2025 Screening for osteoporosis Bone Density Screening [facility] Start: 10-27-2025 Annual PCP Team Underwriting Sales Representative aaron Disease Visit Annual PCP Team Chronic Disease Visit [facility] Start: 10-27-2025 Covid-19 Vaccine ( season) Covid-19 Vaccine () [facility] Comment on above: Postponed from 07/23 (Declined at this time) Start: 09-25-2025 Annual PCP Team Underwriting Sales Representative aaron Disease Visit Annual PCP Team Chronic Disease Visit [facility] Start: 09-25-2025 Creatinine measurement Serum Creatin ine [facility] Start: 07-31-2025 Annual PCP Team Underwriting Sales Representative aaron Disease Visit Annual PCP Team Chronic Disease Visit [facility] Start: 06-22-2025 Annual PCP Team Underwriting Sales Representative aaron Disease Visit Annual PCP Team Chronic Disease Visit [facility] Start: 06-22-2025 BP Controlled (<130/80) BP Controlle d (<130/80) [facility] Start: 06-22-2025 Creatinine measurement Serum Creatin ine [facility] Start: 06-05-2025 [facility] Start: 06-05-2025 Urine culture Urine Culture [facility] Start: 06-01-2025 BP Controlled (<130/80) BP Controlle d (<130/80) [facility] Start: 05-21-2025 Influenza vaccination Influenza Vacc ine (#1) [facility] Comment on above: Postponed from 07/23 (Declined at this time) Start: 05-13-2025 Annual PCP Team Underwriting Sales Representative aaron Disease Visit Annual PCP Team Chronic Disease Visit [facility] Start: 05-13-2025 BP Controlled (<130/80) BP Controlle d (<130/80) [facility] Start: 05-11-2025 DIABETES SCREEN DIABETES SCREEN [facility] Start: 04-27-2025 End: 04-27-2025 Patient encounter procedure [facility] [place] Comment on above: 6 month follow up 6 month follow up/[facility]*Per AWV Initiative-[id number], [id number] Modifier 25* Start: 03-22-2025 Annual PCP Team Underwriting Sales Representative aaron Disease Visit Annual PCP Team Chronic Disease Visit [facility] Start: 03-22-2025 Anxiety Screening Anxiety Screening [facility] Start: 03-22-2025 BP Controlled (<130/80) BP Controlle d (<130/80) [facility] Start: 03-22-2025 Depression Screening Depression Scre [facility] Start: 02-27-2025 Annual PCP Team Underwriting Sales Representative aaron Disease Visit Annual PCP Team Chronic Disease Visit [facility] Start: 02-01-2025 Annual PCP Team Underwriting Sales Representative aaron Disease Visit Annual PCP Team Chronic Disease Visit [facility] Start: 01-28-2025 Annual PCP Team Underwriting Sales Representative aaron Disease Visit Annual PCP Team Chronic Disease Visit [facility] Start: 01-28-2025 BP Controlled (<130/80) BP Controlle d (<130/80) [facility] Start: 01-28-2025 Complete blood count Hemoglobin/Jake tocrit [facility] Start: 01-28-2025 Creatinine measurement Serum Creatin ine [facility] Start: 01-05-2025 Annual PCP Team Underwriting Sales Representative aaron Disease Visit Annual PCP Team Chronic Disease Visit [facility] Start: 01-05-2025 BP Controlled (<130/80) BP Controlle d (<130/80) [facility] Start: 12-01-2024 Annual PCP Team Underwriting Sales Representative aaron Disease Visit Annual PCP Team Chronic Disease Visit [facility] Start: 12-01-2024 Complete blood count Hemoglobin/Jake tocrit [facility] Start: 12-01-2024 Creatinine measurement Serum Creatin ine [facility] Start: 11-23-2024 End: 11-23-2024 ambulatory 11/23/2024 10:15 AM EST OT/PT/Speech Visit [facility] [address] [place] [address] Catherine Valles, PT Acute left-sided low back pain with left-sided sciatica [M54.42] [facility] Comment on above: Acute left-sided low back pain with left-sided sciatica [M54.42] Start: 11-22-2024 Advance Directive Discussion Advance Directive Discussion [facility] Start: 10-27-2024 End: 10-27-2024 Patient encounter procedure 10/27/2024 10:00 AM EST Office Visit [facility] [address] [place] [address] PodlogarEdna APRN.BINDING NICKER [address] [place] [address] routine follow up [facility] Comment on above: routine follow up Start: 10-21-2024 DIABETES SCREEN DIABETES SCREEN [facility] Start: 09-22-2024 Annual PCP Team Underwriting Sales Representative aaron Disease Visit Annual PCP Team Chronic Disease Visit [facility] Start: 09-22-2024 End: 12-22-2024 Comprehensive metabolic 2000 panel - Serum or Plasma COMPREHENSIVE METABOLIC PANEL Lab Routine Stage 3a chronic kidney disease (HCC) Expected: 09/22/2024, Expires: 12/22/2024 [facility] Work Phone: Comment on above: Expected: 09/22/2024 , Expires: 12/22/2024 Start: 09-22-2024 Covid-19 Vaccine (#1) Covid-19 Vacci ne (#1) [facility] Comment on above: Postponed from 10/20 (Declined at this time) Start: 09-22-2024 Covid-19 Vaccine ( season) Covid-19 Vaccine ( season) [facility] Comment on above: Postponed from 07/23 (Declined at this time) Start: 09-22-2024 End: 12-22-2024 Lipid 1996 panel - Serum or Plasma LIPID PANEL BASIC Lab Routine Mixed hyperlipidemia Expected: 09/22/2024, Expires: 12/22/2024 [facility] Comment on above: Expected: 09/22/2024 , Expires: 12/22/2024 Start: 09-22-2024 Pneumococcal Vaccine : 65+ (2 - PCV) Pneumococcal Vaccine: 65+ (2 - PCV) [facility] Comment on above: Postponed from 09/18 (Declined at this time) Start: 09-22-2024 Pneumococcal Vaccine : 65+ (2 of 2 - PCV) Pneumococcal Vaccine: 65+ (2 of 2 - PCV) [facility] Comment on above: Postponed from 09/18 (Declined at this time) Start: 09-22-2024 RSV Vaccine (1 - 1-d ose 60+ series) RSV Vaccine (1 - 1-dose 60+ series) [facility] Comment on above: Postponed from 04/19 (Declined at this time) Start: 09-22-2024 RSV Vaccine (1 - 1-d ose 75+ series) RSV Vaccine (1 - 1-dose 75+ series) [facility] Comment on above: Postponed from 04/19 (Declined at this time) Start: 09-22-2024 Serum Creatinine Serum Creatinine Cl [facility] Start: 09-22-2024 Shingrix Vaccine (1 of 2) Zurita grix Vaccine (1 of 2) [facility] Comment on above: Postponed from 04/19 (Declined at this time) Start: 09-22-2024 End: 09-22-2024 Patient encounter procedure 09/22/2024 10:00 AM EDT Office Visit Family [facility] [address] [place] [address] Elan Garcia MD [address] [place] [id number] 6 month follow up [facility] Comment on above: 6 month follow up Start: 08-03-2024 Annual PCP Team Underwriting Sales Representative aaron Disease Visit Annual PCP Team Chronic Disease Visit [facility] Start: 08-03-2024 BP Controlled (<130/80) BP Controlle d (<130/80) [facility] Start: 08-03-2024 End: 08-03-2024 Patient encounter procedure 08/03/2024 10:45 AM EDT Appointment Radiology [address] [place] [address] Pain in right lower leg [M79.661] Radiology Comment on above: Pain in right lower leg [M79.661] Start: 07-23-2024 Covid-19 Vaccine ( season) Covid-19 Vaccine () [facility] Start: 07-23-2024 Covid-19 Vaccine () Covid-19 Vaccine () [facility] Start: 07-23-2024 Influenza vaccination C [facility] Start: 07-17-2024 Colonoscopy COLONOSCOPY [facility] Start: 07-17-2024 COLORECTAL CANCER SCREENING COLORECTAL CANCER SCREENING [facility] Start: 06-23-2024 End: 06-23-2024 ambulatory 06/23/2024 10:00 AM EDT OT/PT/Speech Visit [place] [facility] Physical Therapy [address] [place] [address] Catherine Valles, PT Right Hip FX [facility] Comment on above: Right Hip FX Start: 06-22-2024 End: 09-21-2024 Comprehensive metabolic 2000 panel - Serum or Plasma [facility] Work Phone: Comment on above: Expected: 06/22/2024 , Expires: 09/21/2024 Start: 06-22-2024 End: 09-21-2024 Urinalysis complete panel - Urine [facility] Comment on above: Expected: 06/22/2024 , Expires: 09/21/2024 Start: 06-22-2024 End: 06-22-2024 Patient encounter procedure 06/22/2024 10:00 AM EDT Office Visit [facility] [place] [address] [facility] [place] [address] Elan Garcia MD [address] [place] [address] 6 week follow up [facility] [place] Comment on above: 6 week follow up Start: 06-01-2024 End: 06-01-2024 ambulatory 06/01/2024 9:45 AM EDT OT/PT/Speech Visit [facility] [address] [place] [address] Jg Howard, PT, DPT Fall in home, subsequent encounter [W19.XXXD, Y92.009]; Other fracture of unspecified thoracic vertebra, initial encounter for closed fracture (HCC) [S22.008A]; Closed fracture of ramus of right pubis with routine healing, subsequent encounter [S32.591D] [facility] Comment on above: Fall in home, subseq uent encounter [W19.XXXD, Y92.009]; Other fracture of unspecified thoracic vertebra, initial encounter for closed fracture (HCC) [S22.008A]; Closed fracture of ramus of right pubis with routine healing, subsequent encounter [S32.591D] Start: 05-26-2024 End: 05-26-2024 Patient encounter procedure 05/26/2024 10:00 AM EDT Appointment Radiology [address] [place] [address] Hip xray Radiology Comment on above: Hip xray Start: 05-21-2024 Influenza vaccination Influenza Vacc ine (#1) [facility] Comment on above: Postponed from 07/23 (Declined at this time) Start: 05-18-2024 End: 06-12-2025 XR Pelvis and Hip - right AP and Lateral frog XR HIP GENERAL 3V PELV/AP/LAT RIGHT Radiology Routine Fall in home, subsequent encounter Closed fracture of ramus of right pubis with routine healing, subsequent encounter Expected: 05/18/2024, Expires: 06/12/2025 [facility] Work Phone: Comment on above: Expected: 05/18/2024 , Expires: 06/12/2025 Start: 04-12-2024 ANNUAL PCP TEAM HEALTH FACILITIES SURVEYOR AARON DISEASE VISIT ANNUAL PCP TEAM CHRONIC DISEASE VISIT [facility] Start: 03-15-2024 SERUM CREATININE SERUM CREATININE Cl [facility] Start: 03-08-2024 ANNUAL PCP TEAM HEALTH FACILITIES SURVEYOR AARON DISEASE VISIT ANNUAL PCP TEAM CHRONIC DISEASE VISIT [facility] Start: 03-08-2024 BP CONTROLLED (<130/80) BP CONTROLLE D (<130/80) [facility] Start: 01-29-2024 End: 04-29-2024 CBC W Auto Differential panel - Blood [facility] Work Phone: Comment on above: Expected: 01/29/2024 , Expires: 04/29/2024 Start: 01-29-2024 End: 04-29-2024 Comprehensive metabolic 2000 panel - Serum or Plasma [facility] Work Phone: Comment on above: Expected: 01/29/2024 , Expires: 04/29/2024 Start: 01-23-2024 [facility] Start: 12-21-2023 Shingrix Vaccine (2 of 2) Zurita grix Vaccine (2 of 2) [facility] Start: 11-22-2023 Advance Directive Discussion Advance Directive Discussion [facility] Start: 11-22-2023 Behavioral Health Screening Behavioral Health Screening [facility] Start: 11-22-2023 Depression Assessment Depression Ass essment [facility] Start: 10-21-2023 ANNUAL PCP TEAM HEALTH FACILITIES SURVEYOR AARON DISEASE VISIT ANNUAL PCP TEAM CHRONIC DISEASE VISIT [facility] Start: 07-23-2023 Influenza vaccination C [facility] Start: 07-17-2023 ANNUAL PCP TEAM HEALTH FACILITIES SURVEYOR AARON DISEASE VISIT ANNUAL PCP TEAM CHRONIC DISEASE VISIT [facility] Start: 07-17-2023 BP CONTROLLED (<130/80) BP CONTROLLE D (<130/80) [facility] Start: 06-22-2023 ANNUAL PCP TEAM HEALTH FACILITIES SURVEYOR AARON DISEASE VISIT ANNUAL PCP TEAM CHRONIC DISEASE VISIT [facility] Start: 06-22-2023 BP CONTROLLED (<130/80) BP CONTROLLE D (<130/80) [facility] Start: 06-15-2023 HEMOGLOBIN/HEMATOCRIT HEMOGLOBIN/HEM ATOCRIT [facility] Start: 06-03-2023 ANNUAL PCP TEAM HEALTH FACILITIES SURVEYOR AARON DISEASE VISIT ANNUAL PCP TEAM CHRONIC DISEASE VISIT [facility] Start: 06-03-2023 BP CONTROLLED (<130/80) BP CONTROLLE D (<130/80) [facility] Start: 06-03-2023 COVID-19 VACCINE (#1) COVID-19 VACCI NE (#1) [facility] Comment on above: Postponed from 10/20 (Declined at this time) Start: 06-03-2023 PNEUMOCOCCAL: 65+ (2 - PCV) PNEUMOCOCCAL: 65+ (2 - PCV) [facility] Comment on above: Postponed from 09/18 (Declined at this time) Start: 06-03-2023 SHINGRIX VACCINE (1 of 2) ZURITA GRIX VACCINE (1 of 2) [facility] Comment on above: Postponed from 04/19 (Declined at this time) Start: 05-21-2023 Influenza vaccination INFLUENZA (#1) [facility] Comment on above: Postponed from 07/23 (Declined at this time) Start: 05-11-2023 ANNUAL PCP TEAM HEALTH FACILITIES SURVEYOR AARON DISEASE VISIT ANNUAL PCP TEAM CHRONIC DISEASE VISIT [facility] Start: 05-11-2023 HEMOGLOBIN/HEMATOCRIT HEMOGLOBIN/HEM ATOCRIT [facility] Start: 05-11-2023 SERUM CREATININE SERUM CREATININE [facility] Start: 04-13-2023 ANNUAL PCP TEAM HEALTH FACILITIES SURVEYOR AARON DISEASE VISIT ANNUAL PCP TEAM CHRONIC DISEASE VISIT [facility] Start: 04-13-2023 BP CONTROLLED (<130/80) BP CONTROLLE D (<130/80) [facility] Start: 04-02-2023 Patient discharge [facility] Start: 04-02-2023 Referral to occupati onal therapist [facility] Start: 04-01-2023 Following clinical pathway protocol [facility] Start: 04-01-2023 Application of intermittent pneumatic compression device [facility] Start: 04-01-2023 Assessment of risk o f venous thromboembolism [facility] Start: 04-01-2023 Cardiac monitoring [facility] Start: 04-01-2023 Catheterization of vein [facility] Start: 04-01-2023 Continuous pulse oximetry [facility] Start: 04-01-2023 Elevation of head of bed [facility] Start: 04-01-2023 Exercises [facility] Start: 04-01-[address] anned interventions [facility] Start: 04-01-2023 Inhalation therapy procedure [facility] Start: 04-01-2023 Insertion of cathete r into peripheral vein [facility] Start: 04-01-2023 Measuring intake and output [facility] Start: 04-01-2023 Notification of physician [facility] Start: 04-01-2023 Oxygen therapy [facility] Start: 04-01-2023 Providing care accor ding to standard [facility] Start: 04-01-2023 Provision of activit y privileges [facility] Start: 04-01-2023 Referral to service [facility] Start: 04-01-2023 Tobacco use cessatio n education [facility] Start: 04-01-2023 [facility] Start: 04-01-2023 Verification routine [facility] Start: 04-01-2023 Admission procedure [facility] Start: 03-20-2023 ANNUAL PCP TEAM HEALTH FACILITIES SURVEYOR AARON DISEASE VISIT ANNUAL PCP TEAM CHRONIC DISEASE VISIT [facility] Start: 03-20-2023 BP CONTROLLED (<130/80) BP CONTROLLE D (<130/80) [facility] Start: 03-08-2023 End: 05-08-2023 Comprehensive metabolic 2000 panel - Serum or Plasma COMP METABOLIC PANEL Lab Routine Essential hypertension Expected: 03/08/2023, Expires: 05/08/2023 [facility] Work Phone: Comment on above: Expected: 03/08/2023 , Expires: 05/08/2023 Start: 11-22-2022 ADVANCE DIRECTIVE DISCUSSION ADVANCE DIRECTIVE DISCUSSION [facility] Start: 11-22-2022 DEPRESSION ASSESSMENT DEPRESSION ASS ESSMENT [facility] Start: 11-10-2022 Therapeutic prophylactic/dx injection subq/im THER/PROPH/DIAG INJ SC/IM [facility] Work Phone: Start: 10-21-2022 SERUM CREATININE SERUM CREATININE Cl [facility] Start: 08-17-2022 End: 08-16-2023 Screening mammography bi 2-view breast inc cad JOON SCREENING Radiology Routine Screening mammogram for breast cancer Expected: 08/17/2022, Expires: 08/16/2023 [facility] Work Phone: Comment on above: Expected: 08/17/2022 , Expires: 08/16/2023 Start: 08-13-2022 Mammography MAMMOGRAM [facility] Start: 07-23-2022 Influenza vaccination INFLUENZA (#1) [facility] Start: 06-15-2022 End: 08-15-2022 BCR-ABL QUALITATIVE MULTIPLEX RT-PCR [facility] Work Phone: Comment on above: Expected: 06/15/2022 , Expires: 08/15/2022 Start: 06-15-2022 End: 08-15-2022 Cortisol [Mass/volume] in Serum or Plasma [facility] Work Phone: Comment on above: Expected: 06/15/2022 , Expires: 08/15/2022 Start: 05-26-2022 End: 07-26-2022 CBC W Auto Differential panel - Blood CBC + DIFF Lab Routine Neutrophilia Expected: 05/26/2022, Expires: 07/26/2022 [facility] Work Phone: Comment on above: Expected: 05/26/2022 , Expires: 07/26/2022 Start: 05-23-2022 End: 07-23-2022 CBC panel - Blood by Automated count CBC Lab Routine Hypopituitarism (HCC) Essential hypertension Mixed hyperlipidemia Expected: 05/23/2022, Expires: 07/23/2022 [facility] Work Phone: Comment on above: Expected: 05/23/2022 , Expires: 07/23/2022 Start: 05-23-2022 End: 07-23-2022 Comprehensive metabolic 2000 panel - Serum or Plasma COMP METABOLIC PANEL Lab Routine Hypopituitarism (HCC) Essential hypertension Mixed hyperlipidemia Expected: 05/23/2022, Expires: 07/23/2022 [facility] Work Phone: Comment on above: Expected: 05/23/2022 , Expires: 07/23/2022 Start: 05-23-2022 End: 07-23-2022 LIPID PANEL, NONFASTING LIPID PANEL, NONFASTING Lab Routine Hypopituitarism (HCC) Essential hypertension Mixed hyperlipidemia Expected: 05/23/2022, Expires: 07/23/2022 [facility] Work Phone: Comment on above: Expected: 05/23/2022 , Expires: 07/23/2022 Start: 05-23-2022 End: 07-23-2022 Thyrotropin [Units/volume] in Serum or Plasma TSH BLD Lab Routine Hypopituitarism (HCC) Essential hypertension Mixed hyperlipidemia Expected: 05/23/2022, Expires: 07/23/2022 [facility] Work Phone: Comment on above: Expected: 05/23/2022 , Expires: 07/23/2022 Start: 04-22-2022 Adult depression screening assessment DEPRESSION SCREENING [facility] Start: 04-22-2022 COVID-19 VACCINE (#1) COVID-19 VACCI NE (#1) [facility] Comment on above: Postponed from 04/19 (Declined at this time) Start: 04-22-2022 COVID-19 VACCINE (1) COVID-19 VACCIN E (1) [facility] Comment on above: Postponed from 04/19 (Declined at this time) Start: 2022 RSV Vaccine (1 - 1-d ose 75+ series) RSV Vaccine (1 - 1-dose 75+ series) [facility] Start: 04-16-2022 HEMOGLOBIN/HEMATOCRIT HEMOGLOBIN/HEM ATOCRIT [facility] Start: 11-22-2021 ADVANCE DIRECTIVE DISCUSSION ADVANCE DIRECTIVE DISCUSSION [facility] Start: 11-22-2021 DEPRESSION ASSESSMENT DEPRESSION ASS ESSMENT [facility] Start: 09-18-2014 Pneumococcal Vaccine : 50+ (2 of 2 - PCV) Pneumococcal Vaccine: 50+ (2 of 2 - PCV) [facility] Start: 09-18-2014 Pneumococcal Vaccine : 65+ (2 - PCV) Pneumococcal Vaccine: 65+ (2 - PCV) [facility] Start: 09-18-2014 Pneumococcal Vaccine : 65+ (2 of 2 - PCV) Pneumococcal Vaccine: 65+ (2 of 2 - PCV) [facility] Start: 09-18-2014 PNEUMOCOCCAL: 65+ (2 - PCV) PNEUMOCOCCAL: 65+ (2 - PCV) [facility] Start: 09-27-2013 FECAL OCCULT BLOOD FECAL OCCULT BLOO D [facility] Start: 1997 SHINGRIX VACCINE (1 of 2) ZURITA GRIX VACCINE (1 of 2) [facility] Start: 1992 COLOGUARD (FIT-DNA) COLOGUARD (FIT-D NA) [facility] Start: [address] COLONOGRAPHY [facility] Start: 1992 SIG[facility]OSCOPY [facility] Start: 1965 BP CONTROLLED (<130/80) BP CONTROLLE D (<130/80) [facility] Start: 1952 COVID-19 VACCINE (#1) COVID-19 VACCI NE (#1) [facility] Start: 1947 COVID-19 VACCINE (#1) COVID-19 VACCI NE (#1) [facility] Bacteria identified in Blood by Culture BLOOD CULTURE Microbiology Routine Neutrophilia Leukocytosis, unspecified type 06/01/2022 10:26 AM [facility] Work Phone: Bacteria identified in Urine by Culture URINE CULTURE Microbiology Routine Leukocytosis, unspecified type 05/11/2022 4:00 PM [facility] Work Phone: Bacteria identified in Urine by Culture URINE CULTURE Microbiology Routine Vaginal discharge Vaginal itching 08/03/2023 9:45 AM [facility] Work Phone: Bacteria identified in Urine by Culture URINE CULTURE Microbiology Routine Lower abdominal tenderness 09/25/2024 10:28 AM [facility] BACTERIAL VAGINOSIS AMPLIFICATION BACTERIAL VAGINOSIS AMPLIFICATION Lab Routine Vaginal irritation 04/13/2022 2:15 PM [facility] Work Phone: BACTERIAL VAGINOSIS NAAT BACTERI AL VAGINOSIS NAAT Lab Routine Vaginal discharge 08/03/2023 9:45 AM [facility] Work Phone: DARON / TRICHOMONA S AMPLIFICATION DARON / TRICHOMONAS AMPLIFICATION Lab Routine Vaginal irritation 04/13/2022 2:15 PM [facility] Work Phone: DARON/TRICHOMONAS NAAT DARON /TRICHOMONAS NAAT Lab Routine Vaginal discharge 08/03/2023 9:45 AM EDT [facility] Work Phone: CBC W Ordered Manual Differential panel - Blood PATHOLOGIST INTERPRETATION WITH CBC AND DIFF Lab Routine Neutrophilia Leukocytosis, unspecified type 06/15/2022 2:11 PM EDT [facility] Work Phone: Comprehensive metabo lic 2000 panel - Serum or Plasma COMPREHENSIVE METABOLIC PANEL Lab Routine Stage 3a chronic kidney disease (HCC) 09/25/2024 9:39 AM EST [facility] End: 06-10-2023 Ct abdomen & pelvis w/o contrast material CT ABD/PEL WO IVCON Radiology STAT Leukocytosis, unspecified type 1 Occurrences starting 05/11/2022 until 06/10/2023 [facility] Work Phone: Comment on above: 1 Occurrences starti ng 05/11/2022 until 06/10/2023 Lipid 1996 panel - S yassine or Plasma LIPID PANEL BASIC Lab Routine Mixed hyperlipidemia 09/25/2024 9:39 AM EST [facility] MR Brain WO and W contrast IV [facility] MR Brain WO contrast [facility] End: 08-19-2023 Mri any jt upper extremity w/o contrast matrl MRI WRIST WO IVCON RT Radiology Routine Right wrist pain 1 Occurrences starting 07/20/2022 until 08/19/2023 [facility] Work Phone: Comment on above: 1 Occurrences starti ng 07/20/2022 until 08/19/2023 Patient Education [facility] Work Phone: Patient referral [facility] Work Phone: End: 11-20-2023 Radiologic exam chest 2 views XR CHEST 2V FRONTAL/LAT Radiology Routine Expiratory wheezing Acute cough 1 Occurrences starting 10/21/2022 until 11/20/2023 [facility] Work Phone: Comment on above: 1 Occurrences starti ng 10/21/2022 until 11/20/2023 Radiologic exam ches t 2 views XR CHEST 2V FRONTAL/LAT Radiology Routine Expiratory wheezing 10/21/2022 9:35 AM EST [facility] Work Phone: T4 free measurement [facility] Triiodothyronine, fr ee measurement [facility] UA DIP, URINE (POC) UA DIP, URIN E (POC) Lab Routine Leukocytosis, unspecified type Ordered: 05/11/2022 [facility] Work Phone: Comment on above: Ordered: 05/11/2022 Urinalysis complete panel - Urine URINALYSIS, WITH MICROSCOPIC Lab Routine Lower abdominal tenderness 09/25/2024 10:28 AM EST [facility] Work Phone: End: 08-30-2025 US Lower extremity vein - right US DVT LOWER RIGHT Radiology JOHN Pain in right lower leg 1 Occurrences starting 07/31/2024 until 08/30/2025 [facility] Work Phone: Comment on above: 1 Occurrences starti ng 07/31/2024 until 08/30/2025 End: 08-16-2023 XR HAND GENERAL 3V PA/LAT/OBL RIGHT XR HAND GENERAL 3V PA/LAT/OBL RIGHT Radiology Routine Wrist pain, right Hand pain, right 1 Occurrences starting 07/17/2022 until 08/16/2023 [facility] Work Phone: Comment on above: 1 Occurrences starti ng 07/17/2022 until 08/16/2023 XR HAND GENERAL 3V PA/LAT/OBL RIGHT XR HAND GENERAL 3V PA/LAT/OBL RIGHT Radiology Routine Wrist pain, right Hand pain, right 07/17/2022 8:40 AM EDT [facility] Work Phone: End: 08-16-2023 XR WRIST GENERAL 3V PA/LAT/OBL RIGHT XR WRIST GENERAL 3V PA/LAT/OBL RIGHT Radiology Routine Wrist pain, right Hand pain, right 1 Occurrences starting 07/17/2022 until 08/16/2023 [facility] Work Phone: Comment on above: 1 Occurrences starti ng 07/17/2022 until 08/16/2023 XR WRIST GENERAL 3V PA/LAT/OBL RIGHT XR WRIST GENERAL 3V PA/LAT/OBL RIGHT Radiology Routine Wrist pain, right Hand pain, right 07/17/2022 8:40 AM EDT [facility] Work Phone: [facility] Immunizations Immunization Date Immunization Notes Care Provider Jonn weiner 10-25-2021 influenza, high-dose , quadrivalent vaccine (FLUZONE HIGH DOSE QUADRIVALENT) Elan Garcia MD Work Phone: [facility] 10-25-2021 influenza virus vaccine, unspecified formulation 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 [employer]CH[employer]Y.[employer]ING N[employer]ER Work Phone: [facility] 03-01-2020 tetanus toxoid, redu jamaal diphtheria toxoid, and acellular pertussis vaccine, adsorbed Elan Garcia MD Work Phone: [facility] 09-18-2013 influenza virus vaccine, unspecified formulation Elan Garcia MD Work Phone: [facility] 09-18-2013 pneumococcal polysaccharide vaccine, 23 valent Elan Garcia MD Work Phone: [facility] 09-10-2009 influenza virus vaccine, unspecified formulation Elan Garcia MD Work Phone: [facility] Work Phone: 04-22-2009 tetanus and diphther ia toxoids, adsorbed, preservative free, for adult use (2 Lf of tetanus toxoid and 2 Lf of diphtheria toxoid) Elan Garcia MD Work Phone: [facility] 10-25-2008 influenza virus vaccine, unspecified formulation Elan Garcia MD Work Phone: [facility] 09-14-2007 influenza virus vaccine, unspecified formulation Elan Garcia MD Work Phone: [facility] Work Phone: 10-08-2006 influenza virus vaccine, unspecified formulation Elan Garcia MD Work Phone: [facility] 09-25-2005 influenza virus vaccine, unspecified formulation Elan Garcia MD Work Phone: [facility] Work Phone: Payers Date Payer Category Payer Self-pay [id number] 2021 Medicare HUMANA MEDICARE HUMANA MEDICARE PPO [id number] 2021-Present [phone] [address] [address] [place] [address] PPO [id number] 2021 Medicare [id number] 2019 Medicare [id number] Medicare [id number] Unknown [id number] Unknown [id number] Unknown [id number] Unknown [id number] Unknown [id number] Unknown [id number] Unknown [id number] Unknown [id number] Unknown [id number] Unknown [id number] Social History Date Type Detail Facility Start: 06-02-2011 End: 10-18-2024 Tobacco smoking status NHIS Never smoked tobacco [facility] Start: 03-20-2022 End: 10-27-2024 Alcohol intake Current non-drinker of alcohol (finding) [facility] Start: 1945 Sex Assigned At Not on file C [facility] Start: 10-20-2020 End: 10-21-2022 Exposure to SARS-CoV-2 (event) Not sure [facility] Start: 04-30-2022 End: 01-22-2024 Tobacco smoking status NHIS Unknown if ever smoked [facility] Start: 08-19-2018 None [facility] Start: 04-24-2021 Homeless [facility] Start: 07-13-2019 Non-smoker [facility] Start: 1945 Sex Assigned At Female [facility] Start: 06-02-2011 Tobacco use and exposure Smokeless tobacco non-user [facility] Work Phone: Start: 04-12-2023 End: 08-03-2023 History of Social function [facility] Work Phone: Start: 04-12-2023 End: 08-03-2023 Tobacco use panel [facility] Work Phone: Adult Depression Screening Assessment 1 [facility] Work Phone: Start: 06-18-2023 Gender identity Identifies as female gender (finding) [facility] Start: 06-18-2023 Sexual orientation Heterosexual (fin sherrill) [facility] Functional Status Date Assessment Result Facility 04-02-2023 Functional status Ambulates [facility] Work Phone: Mental Status Date Assessment Result Facility 11-19-2023 Cognitive function Awake;Alert;A ppropriate;Fol lows Commands [facility] Work Phone: 05-21-2023 Cognitive function Awake;Alert;A ppropriate;Fol lows Commands [facility] Work Phone: 04-02-2023 Cognitive function Awake;Alert;A ppropriate;Fol lows Commands [facility] Work Phone: 04-01-2023 Cognitive function Awake;Alert;A ppropriate;Fol lows Commands [facility] Work Phone: 11-10-2022 Cognitive function Voice/Name [facility] Work Phone: 05-12-2022 Cognitive function Voice/Name [facility] Work Phone: Clinical Notes 11-19-2020 to 06-08-2025 Note Date & Type Note Facility 06-08-2025 Radiology Diagnostic study note [facility] Imaging Services [address] [place], [place] [address] Kidney and Bladder MR#: [id number] Acct: [id number] Name: DORA BRYANT Rep #: [id number] : 1945 F 80 From: Main Capps MD PCP: Dr. Yon Salas MD Status: [facility] Study:Kidney and Bladder Date of Exam: 0 06/08/25 Exam# [id number] Ordering Dr: Yon Salas MD PROCEDURE: KIDNEY AND BLADDER 06/08/2025 REASON FOR EXAM: CHRONIC KIDNEY DISEASE, STAGE 3B TECHNIQUE: KIDNEY AND BLADDER COMPARISON: Prior CT scan dated June 06, 2025. FINDINGS: Kidneys: Normal renal sizes, parenchymal thicknesses, and echotextures. [place]: No evidence of hydronephrosis. Cysts or Masses: There is a 1.7 cm 1.5 cm 1.5 cm cyst in the upper pole of the right kidney. RIGHT Kidney Size: 9.6 cm x 4.6 cm x 4.6 cm Volume: 105.75 mL Cortical Thickness (if discernible): 14 mm (>6mm is normal) LEFT Kidney Size: 8.4 cm x 4.3 cm x 4.5 cm Volume: 85.62 mL Cortical Thickness (if discernible): 10 mm (>6mm is normal) US/Kidney and Bladder IMPRESSION: NORMAL RENAL ULTRASOUND. Incidental note is made of a 1.7 cm 1.5 cm x 1.5 cm cyst in the upper midportionof the right kidney. Reading Location: [address]: Dr. Yon Salas MD ~ Developer Automatic: Signed [facility] 06-06-2025 Radiology Diagnostic study note [facility] Imaging Services [address] [place] [address] Abdomen/Pelvis without Cont MR#: [id number] Acct: [id number] Name: DORA BRYANT Rep #: [id number] : 1945 F 80 From: Siria Morrell MD PCP: Dr. Yon Salas MD Status: REG C CATA Study:Abdomen/Pelvis without Cont Date of Exa m: 06/06/25 Exam# [id number] Ordering Dr: Yon Salas MD EXAM: CT Abdomen and Pelvis Without Intravenous Contrast CLINICAL INDICATION: KIDNEY STONE TECHNIQUE: Axial computed tomography images of the abdomen and pelvis without intravenous contrast. This CT exam was performed using one or more of the following dose reduction techniques: automated exposure control, adjustment of the mA and/or kV according to patient size, and/or use of iterative reconstruction technique. COMPARISON: No relevant prior studies available. FINDINGS: LUNG BASES: Unremarkable. No mass. No consolidation. MEDIASTINUM: Small esophageal hiatal hernia. ABDOMEN: LIVER: Fatty infiltration of the liver. GALLBLADDER AND BILE DUCTS: Unremarkable. No calcified stones. No ductal dilation. PANCREAS: Unremarkable. No ductal dilation. SPLEEN: Unremarkable. No splenomegaly. ADRENALS: Unremarkable. No mass. KIDNEYS AND URETERS: Unremarkable. No stones within either kidney. No hydronephrosis. STOMACH AND BOWEL: Unremarkable. No obstruction. No mucosal thickening. PELVIS: APPENDIX: No findings to suggest acute appendicitis. BLADDER: Unremarkable. No stones. REPRODUCTIVE: Unremarkable as visualized. ABDOMEN and PELVIS: INTRAPERITONEAL SPACE: Unremarkable. No free air. No significant fluid collection. BONES/JOINTS: No acute fracture. No dislocation. SOFT TISSUES: Unremarkable. VASCULATURE: Scattered calcified atherosclerotic disease of aorta. No abdominal aortic aneurysm. LYMPH NODES: Unremarkable. No enlarged lymph nodes. CT/Abdomen/Pelvis without Cont IMPRESSION: 1. Small esophageal hiatal hernia. 2. No obstructive uropathy. Reading Location: [facility] CC: Dr. Yon Salas MD ~ Developer Automatic: Signed [facility] 05-21-2025 Radiology Diagnostic study note [facility] Imaging Services [address] [place] [address] Cerv Spine 2 or 3 Views MR#: [id number] Acct: [id number] Name: DORA BRYANT Rep #: [id number] : 1945 F 80 From: Gabrielle Andersen MD PCP: Dr. Yon Salas MD Status: REG C Study:Cerv Spine 2 or 3 Views Date of Exam: 05/21/25 Exam# [id number] Ordering Dr: Yon Salas MD PROCEDURE: CERV [...] spine, worst atC5-6 and C6-7. Reading Location: [facility] CC: Dr. Yon Salas MD ~ Developer Automatic: Signed [facility] 05-21-2025 Radiology Diagnostic study note [facility] Imaging Services [address] [place], [place] [address] Thoracic Spine 3 Views MR#: [id number] Acct: [id number] Name: DORA BRYANT Rep #: [id number] : 1945 F 80 From: Gabrielle Andersen MD PCP: Dr. Yon Salas MD Status: REG C CATA Study:Thoracic Spine 3 Views Date of Exam: 05/21/25 Exam# [id number] Ordering Dr: Yon Salas MD PROCEDURE: THORACIC SPINE 3 VIEWS 05/21/2025 REASON FOR EXAM: THORACIC BACK PAIN TECHNIQUE: THORACIC SPINE 3 VIEWS COMPARISON: Thoracic spine radiographs 05/11/2024 FINDINGS: Slight anterior wedging of several upper thoracic vertebral bodies, unchanged from 05/11/2024. Thoracic vertebral body heights are otherwise maintained. There is mild leftward curvature of the thoracic spine. Zhnx-wx-drnngbdy multilevel disc height loss with endplate osteophyte formation. The visualized lungs are clear. Aortic atherosclerosis. RAD/Thoracic Spine 3 Views IMPRESSION: 1. Mild to moderate multilevel degenerative changes of the thoracic spine. 2. Slight anterior wedging of several upper thoracic vertebral bodies is unchanged from 05/11/2024. Reading Location: [facility] CC: Dr. Yon Salas MD ~ Developer Automatic: Signed [facility] 05-21-2025 Radiology Diagnostic study note [facility] Imaging Services [address] [place], [place] [address] L/S Spine Min 4 Views MR#: [id number] Acct: [id number] Name: DORA BRYANT Rep #: [id number] : 1945 F 80 From: Gabrielle Andersen MD PCP: Dr. Yon Salas MD Status: MADELIN IVY Study:L/S Spine Min 4 Views Date of Exam: 05/21/25 Exam# [id number] Ordering Dr: Yon Salas MD PROCEDURE: L/S SPINE MIN 4 VIEWS 05/21/2025 REASON FOR EXAM: LOW BACK PAIN TECHNIQUE: L/S SPINE MIN 4 VIEWS COMPARISON: Lumbar spine radiographs on 05/11/2024 FINDINGS: There are 5 ulg-rja-aoqijaf lumbar-type vertebral bodies. Vertebral body heights are maintained. There is a proximally 5 mm anterolisthesis of L5 on S1, unchanged. No pars defect identified on the oblique images. Nehj-kz-zcfitang multilevel disc height loss and endplate osteophyte formation with facet arthrosis, worst at L3-4 through L5-S1. Aortic atherosclerosis. RAD/L/S Spine Min 4 Views IMPRESSION: Noql-xd-bmwkegfk degenerative changes of the lumbar spine, worst from L3-4 through L5-S1 and progressed since radiographs on 05/11/2024. Reading Location: [id number] CC: Dr. Yon Salas MD ~ Developer Automatic: Signed [facility] 05-18-2025 Evaluation note Diagnosis Onset Date Resolution Glucocorticoid deficiency chronic May 18, 2025 10:45am History of pituitary tumor chronic May 18, 2025 10:45am Osteoporosis chronic May 18, 2 025 10:45am Secondary hypothyroidism chronic May 18, 2025 10:45am [facility] Work Phone: [phone]) 747-809506-27-2025 [facility] [address] [place], [place] [address] OFFICE VISIT Date of Service: 05/18/25 MR#: [id number] Acct: [id number] Name: DORA BRYANT Rep #: [id number] : 1945 Provider: Dr. Lei Sung MD Age/Sex: 80/F Location[place] [facility] Status: Signed Intake Vital Signs 05/18/24 14:53 [...] FU Chief Complaint: Osteopororis, hypothyroid, pituitary tumor Employment Counselor Required: No Accompanied by: Self Is patient [...] denosumab 60 mg/mL subcutaneous 60 mg subcut [id number] #1 mL 05/20/23 05/18/25 Rx syringe (Prolia) [...] Procedure performed by: Radha Tidwell Lot number: [id number] Registered Dental Assistant: [employer] date: 07/22/27 Dose of injection: 1mL Site of injection: Sub-Q Medication Given: Yes Is this a patient provided medication?: No Office Meds Prolia 60 mg/mL subcutaneous syringe Performing Provider: Lei Sung MD Performing Location: [facility] Administered by: Radha Tidwell on 05/18/25 11:01 Dose Route Admin Location Dispensed Lot Number Expiration Date ND Registered Dental Assistant 60 mg subcut Lt Arm 1 mL [id number] 07/22/27 95701-943-61 [employer] Clinical Quality Measures Falls Risk Screening/Assistive [...] G2211 (G2211) 05/18/25 1214 Date _ Lei Sung MD Cosigner Signature: Date (if applicable) CC: Dr. Pastor Garcia MD ~ [facility]06-27-2025 Progress note Author Lei Sung [facility] Note Date/Time May 18, 2025 12:1 4pm [facility] [address] [place] [address] OFFICE VISIT Date of Service: 05/18/25 MR#: [id number] Acct: [id number] Name: DORA BRYANT Rep #: [id number] : 1945 Provider: Dr. Lei Sung MD Age/Sex: 80/F Location: [facility] Status: Signed Intake Vital Signs 05/18/24 14:53 [...] FU Chief Complaint: Osteopororis, hypothyroid, pituitary tumor Employment Counselor Required: No Accompanied by: Self Is patient [...] denosumab 60 mg/mL subcutaneous 60 mg subcut [id number] #1 mL 05/20/23 05/18/25 Rx syringe (Prolia) [...] you fallen in the past year?: No [facility] Medical History Malaise and fatigue Fibromyalgia Secondary [...] Procedure performed by: Radha Tidwell Lot number: [id number] Registered Dental Assistant: [employer] date: 07/22/27 Dose of injection: 1mL Site of injection: Sub-Q Medication Given: Yes Is this a patient provided medication?: No Office Meds Prolia 60 mg/mL subcutaneous syringe Performing Provider: Lei Sung MD Performing Location: [facility] Administered by: Radha Tidwell on 05/18/25 11:01 Dose Route Admin Location Dispensed Lot Number Expiration Date [facility] Registered Dental Assistant 60 mg subcut Lt Arm 1 mL [id number] 07/22/27 61435-901-84 [employer] Clinical Quality Measures Falls Risk Screening/Assistive [...] levothyroxine 25 mcg PO .1 qd, 2 Wed and Wed 108 tabs 3RF thyroid Coding [...] Sung MD> Date _ Lei Sung MD Cosign Signature: Date (if applicable) CC: Dr. Pastor Garcia MD ~ [facility] Work Phone: [phone] Telephone encounter Note* Telephone Encounter - Ina Beach, DELFIN - 12/13/2024 8:06 AM EST Phoned patient and given provider's message below with verbalized understanding. Patient agreeable to contact financial. [facility]01-22-2025 Miscellaneous Notes* Telephone Encounter - Ina Beach RN - 12/13/2024 8:06 AM EST Phoned patient and given provider's message below with verbalized understanding. Patient agreeable to contact financial. * Telephone Encounter - Elan Garcia MD - 12/13/2024 6:56 AM EST [facility] determines which insurances they accept. This [...] appt scheduled in April 2025 (MR # [id number]) has appt scheduled in March 2025 plus he is scheduled to complete labs on 01-01-25 Please advise patient: [phone]. documented in this encounterNation[facility]01-[facility]-2025 Telephone encounter Note * Telephone Encounter - Elan Garcia MD - 12/13/2024 6:56 AM EST [facility] determines which insurances they accept. This question needs directed to financial. [facility]01-21-2025 Telephone encounter Note* Telephone Encounter - Ina Beach RN - 12/12/2024 4:37 PM EST Pt reports she and her are both patient's of Dr. Garcia. They have [employer] PPO Plan. The insurance company told them Dr. Garcia opted out of [employer]. Pt asking Dr. Garcia is this true? Pt has appt scheduled in April 2025 (MR # [id number]) has appt scheduled in March 2025 plus he is scheduled to complete labs on 01-01-25 Please advise patient: [phone]. [facility]12-30-2024 Telephone encounter Note* Telephone Encounter - Марина Araiza LPN - 11/20/2024 4:55 PM EST Pt notified of provider message. Марина Araiza LPN [facility]12-30-2024 Miscellaneous Notes* Telephone Encounter - Марина [...] have CKD stage 3? documented in this encounterNationwide [facility]12-30-2024 Telephone encounter Note * Telephone Encounter - Ina Beach RN - 11/20/2024 4:50 PM EST Left vm for pt to return call to nurse for provider's message. [facility]12-30-2024 Telephone encounter Note* Telephone Encounter - Ab Castaneda MD - 11/20/2024 3:06 PM EST It is ok to take for stage III ckd. No adjustments need made unless it worsens. [facility] Work Phone: [phone] Telephone encounter Note* Telephone Encounter - Guerita Gurrola LPN - 11/20/2024 2:44 PM EST Patient seen Edna Podlogjose angel on 10/27/24 for a cough. It was recommended by Edna that patient try Zyrtec OTC. Patient questions if this is safe for her to do so as she does have CKD stage 3? [facility]12-23-2024 NoteHNO ID: [id number] Author: ?, ?, ? Service: ? Author [...] appointment Updated appointment notes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 11/26/2020 01/23/2021 Contact dermatitis and other eczema due to other specified agent 10/07/2012 04/15/2016 Eczematous dermatitis 10/07/2012 04/15/2016 Xerosis cutis 10/07/2012 04/15/2016 Postinflammatory skin changes 10/07/2012 Pituitary adenoma 08/05/2011 04/22/2021 Cholecystitis 07/15/2011 10/10/2013 Overview: [facility] 02/2011- partial CBD obs s/p lap [...] of this encounter (statuses as of 05/13/2022) [facility] Narr[facility]* Problem Noted Date Resolved Date Acute bilateral low back pain without sciatica 0 11/26/2020 01/23/2021 Contact dermatitis and other eczema due to other specified agent 10/07/2012 04/15/2016 Eczematous dermatitis 10/07/2012 04/15/2016 Xerosis cutis 10/07/2012 04/15/2016 Postinflammatory skin changes 10/07/2012 Pituitary adenoma 08/05/2011 04/22/2021 Cholecystitis 07/15/2011 10/10/2013 Overview: [facility] 02/2011- partial CBD obs s/p lap [...] of this encounter (statuses as of 05/15/2022) [facility] Narrative* Problem Noted Date Resolved Date Acute bilateral low back pain without sciatica 0 11/26/2020 01/23/2021 Contact dermatitis and other eczema due to other specified agent 10/07/2012 04/15/2016 Eczematous dermatitis 10/07/2012 04/15/2016 Xerosis cutis 10/07/2012 04/15/2016 Postinflammatory skin changes 10/07/2012 Pituitary adenoma 08/05/2011 04/22/2021 Cholecystitis 07/15/2011 10/10/2013 Overview: [facility] 02/2011- partial CBD obs s/p lap [...] of this encounter (statuses as of 06/01/2022) [facility] Narrative* Problem Noted Date Resolved Date Acute bilateral low back pain without sciatica 0 11/26/2020 01/23/2021 Contact dermatitis and other eczema due to other specified agent 10/07/2012 04/15/2016 Eczematous dermatitis 10/07/2012 04/15/2016 Xerosis cutis 10/07/2012 04/15/2016 Postinflammatory skin changes 10/07/2012 Pituitary adenoma 08/05/2011 04/22/2021 Cholecystitis 07/15/2011 10/10/2013 Overview: [facility] 02/2011- partial CBD obs s/p lap [...] of this encounter (statuses as of 06/03/2022) [facility] Narr[facility]* Problem Noted Date Resolved Date Acute bilateral low back pain without sciatica 0 11/26/2020 01/23/2021 Contact dermatitis and other eczema due to other specified agent 10/07/2012 04/15/2016 Eczematous dermatitis 10/07/2012 04/15/2016 Xerosis cutis 10/07/2012 04/15/2016 Postinflammatory skin changes 10/07/2012 Pituitary adenoma 08/05/2011 04/22/2021 Cholecystitis 07/15/2011 10/10/2013 Overview: [facility] 02/2011- partial CBD obs s/p lap [...] of this encounter (statuses as of 06/15/2022) [facility] Narr[facility]* Problem Noted Date Resolved Date Acute bilateral low back pain without sciatica 0 11/26/2020 01/23/2021 Contact dermatitis and other eczema due to other specified agent 10/07/2012 04/15/2016 Eczematous dermatitis 10/07/2012 04/15/2016 Xerosis cutis 10/07/2012 04/15/2016 Postinflammatory skin changes 10/07/2012 Pituitary adenoma 08/05/2011 04/22/2021 Cholecystitis 07/15/2011 10/10/2013 Overview: [facility] 02/2011- partial CBD obs s/p lap [...] of this encounter (statuses as of 06/22/2022) [facility]01-05-[facility]21 History of Past illness Narrative* Problem Noted Date Resolved Date Acute bilateral low back pain without sciatica 0 11/26/2020 01/23/2021 Contact dermatitis and other eczema due to other specified agent 10/07/2012 04/15/2016 Eczematous dermatitis 10/07/2012 04/15/2016 Xerosis cutis 10/07/2012 04/15/2016 Postinflammatory skin changes 10/07/2012 Pituitary adenoma 08/05/2011 04/22/2021 Cholecystitis 07/15/2011 10/10/2013 Overview: [facility] 02/2011- partial CBD obs s/p lap [...] of this encounter (statuses as of 06/30/2022) [facility]01-[facility] History of Past illness Narrative* Problem Noted Date Resolved Date Acute bilateral low back pain without sciatica 0 11/26/2020 01/23/2021 Contact dermatitis and other eczema due to other specified agent 10/07/2012 04/15/2016 Eczematous dermatitis 10/07/2012 04/15/2016 Xerosis cutis 10/07/2012 04/15/2016 Postinflammatory skin changes 10/07/2012 Pituitary adenoma 08/05/2011 04/22/2021 Cholecystitis 07/15/2011 10/10/2013 Overview: [facility] 02/2011- partial CBD obs s/p lap [...] of this encounter (statuses as of 07/04/2022) [facility] History of Past illness Narrative* Problem Noted Date Resolved Date Acute bilateral low back pain without sciatica 0 11/26/2020 01/23/2021 Contact dermatitis and other eczema due to other specified agent 10/07/2012 04/15/2016 Eczematous dermatitis 10/07/2012 04/15/2016 Xerosis cutis 10/07/2012 04/15/2016 Postinflammatory skin changes 10/07/2012 Pituitary adenoma 08/05/2011 04/22/2021 Cholecystitis 07/15/2011 10/10/2013 Overview: [facility] 02/2011- partial CBD obs s/p lap [...] of this encounter (statuses as of 07/15/2022) [facility] History of Past illness Narrative* Problem Noted Date Resolved Date Acute bilateral low back pain without sciatica 0 11/26/2020 01/23/2021 Contact dermatitis and other eczema due to other specified agent 10/07/2012 04/15/2016 Eczematous dermatitis 10/07/2012 04/15/2016 Xerosis cutis 10/07/2012 04/15/2016 Postinflammatory skin changes 10/07/2012 Pituitary adenoma 08/05/2011 04/22/2021 Cholecystitis 07/15/2011 10/10/2013 Overview: [facility] 02/2011- partial CBD obs s/p lap [...] of this encounter (statuses as of 07/17/2022) [facility] History of Past illness Narrative* Problem Noted Date Resolved Date Acute bilateral low back pain without sciatica 0 11/26/2020 01/23/2021 Contact dermatitis and other eczema due to other specified agent 10/07/2012 04/15/2016 Eczematous dermatitis 10/07/2012 04/15/2016 Xerosis cutis 10/07/2012 04/15/2016 Postinflammatory skin changes 10/07/2012 Pituitary adenoma 08/05/2011 04/22/2021 Cholecystitis 07/15/2011 10/10/2013 Overview: [facility] 02/2011- partial CBD obs s/p lap [...] of this encounter (statuses as of 08/25/2022) [facility] History of Past illness Narrative* Problem Noted Date Resolved Date Acute bilateral low back pain without sciatica 0 11/26/2020 01/23/2021 Contact dermatitis and other eczema due to other specified agent 10/07/2012 04/15/2016 Eczematous dermatitis 10/07/2012 04/15/2016 Xerosis cutis 10/07/2012 04/15/2016 Postinflammatory skin changes 10/07/2012 Pituitary adenoma 08/05/2011 04/22/2021 Cholecystitis 07/15/2011 10/10/2013 Overview: [facility] 02/2011- partial CBD obs s/p lap [...] of this encounter (statuses as of 10/21/2022) [facility] History of Past illness Narrative* Problem Noted Date Resolved Date Acute bilateral low back pain without sciatica 0 11/26/2020 01/23/2021 Contact dermatitis and other eczema due to other specified agent 10/07/2012 04/15/2016 Eczematous dermatitis 10/07/2012 04/15/2016 Xerosis cutis 10/07/2012 04/15/2016 Postinflammatory skin changes 10/07/2012 Pituitary adenoma 08/05/2011 04/22/2021 Cholecystitis 07/15/2011 10/10/2013 Overview: [facility] 02/2011- partial CBD obs s/p lap [...] of this encounter (statuses as of 10/21/2022) [facility] History of Past illness Narrative* Problem Noted Date Resolved Date Acute bilateral low back pain without sciatica 0 11/26/2020 01/23/2021 Contact dermatitis and other eczema due to other specified agent 10/07/2012 04/15/2016 Eczematous dermatitis 10/07/2012 04/15/2016 Xerosis cutis 10/07/2012 04/15/2016 Postinflammatory skin changes 10/07/2012 Pituitary adenoma 08/05/2011 04/22/2021 Cholecystitis 07/15/2011 10/10/2013 Overview: [facility] 02/2011- partial CBD obs s/p lap [...] of this encounter (statuses as of 11/15/2022) [facility] History of Past illness Narrative* Problem Noted Date Resolved Date Acute bilateral low back pain without sciatica 0 11/26/2020 01/23/2021 Contact dermatitis and other eczema due to other specified agent 10/07/2012 04/15/2016 Eczematous dermatitis 10/07/2012 04/15/2016 Xerosis cutis 10/07/2012 04/15/2016 Postinflammatory skin changes 10/07/2012 Pituitary adenoma 08/05/2011 04/22/2021 Cholecystitis 07/15/2011 10/10/2013 Overview: [facility] 02/2011- partial CBD obs s/p lap [...] of this encounter (statuses as of 02/24/2023) [facility] History of Past illness Narrative* Problem Noted Date Resolved Date Acute bilateral low back pain without sciatica 0 11/26/2020 01/23/2021 Contact dermatitis and other eczema due to other specified agent 10/07/2012 04/15/2016 Eczematous dermatitis 10/07/2012 04/15/2016 Xerosis cutis 10/07/2012 04/15/2016 Postinflammatory skin changes 10/07/2012 Pituitary adenoma 08/05/2011 04/22/2021 Cholecystitis 07/15/2011 10/10/2013 Overview: [facility] 02/2011- partial CBD obs s/p lap [...] of this encounter (statuses as of 03/08/2023) [facility] History of Past illness Narrative* Problem Noted Date Resolved Date Acute bilateral low back pain without sciatica 0 11/26/2020 01/23/2021 Contact dermatitis and other eczema due to other specified agent 10/07/2012 04/15/2016 Eczematous dermatitis 10/07/2012 04/15/2016 Xerosis cutis 10/07/2012 04/15/2016 Postinflammatory skin changes 10/07/2012 Pituitary adenoma 08/05/2011 04/22/2021 Cholecystitis 07/15/2011 10/10/2013 Overview: [facility] 02/2011- partial CBD obs s/p lap [...] of this encounter (statuses as of 03/17/2023) [facility] History of Past illness Narrative* Problem Noted Date Resolved Date Acute bilateral low back pain without sciatica 0 11/26/2020 01/23/2021 Contact dermatitis and other eczema due to other specified agent 10/07/2012 04/15/2016 Eczematous dermatitis 10/07/2012 04/15/2016 Xerosis cutis 10/07/2012 04/15/2016 Postinflammatory skin changes 10/07/2012 Pituitary adenoma 08/05/2011 04/22/2021 Cholecystitis 07/15/2011 10/10/2013 Overview: [facility] 02/2011- partial CBD obs s/p lap [...] of this encounter (statuses as of 05/07/2023) [facility] History of Past illness Narrative* Problem Noted Date Diagnosed Date Resolved Date Acute bilateral low back laura n without sciatica 11/26/2020 01/23/2021 Contact dermatitis and other eczema due to other specified agent 10/07/2012 04/15/2016 Eczematous dermatitis 10/07/20122015 Xerosis cutis 10/07/2012 04/15/2016 Postinflammatory skin changes 10/07/2012 04/15/2016 Pituitary adenoma 08/05/2011 04/22/2021 Cholecystitis 07/15/2011 10/10/2013 Overview: [facility] 02/2011- partial CBD obs s/p lap [...] of this encounter (statuses as of 08/03/2023) [facility] History of Past illness Narrative* Problem Noted Date Diagnosed Date Resolved Date Acute bilateral low back laura n without sciatica 11/26/2020 01/23/2021 Contact dermatitis and other eczema due to other specified agent 10/07/2012 04/15/2016 Eczematous dermatitis 10/07/20122015 Xerosis cutis 10/07/2012 04/15/2016 Postinflammatory skin changes 10/07/2012 04/15/2016 Pituitary adenoma 08/05/2011 04/22/2021 Cholecystitis 07/15/2011 10/10/2013 Overview: [facility] 02/2011- partial CBD obs s/p lap [...] of this encounter (statuses as of 08/09/2023) [facility] History of Past illness Narrative* Problem Noted Date Diagnosed Date Resolved Date Acute bilateral low back laura n without sciatica 11/26/2020 01/23/2021 Contact dermatitis and other eczema due to other specified agent 10/07/2012 04/15/2016 Eczematous dermatitis 10/07/20122015 Xerosis cutis 10/07/2012 04/15/2016 Postinflammatory skin changes 10/07/2012 04/15/2016 Cholecystitis 07/15/2011 10/10/2013 Overview: [facility] 02/2011- partial CBD obs s/p lap [...] of this encounter (statuses as of 10/08/2023) [facility] History of Past illness Narrative* Problem Noted Date Diagnosed Date Resolved Date Acute bilateral low back laura n without sciatica 11/26/2020 01/23/2021 Contact dermatitis and other eczema due to other specified agent 10/07/2012 04/15/2016 Eczematous dermatitis 10/07/20122015 Xerosis cutis 10/07/2012 04/15/2016 Postinflammatory skin changes 10/07/2012 04/15/2016 Cholecystitis 07/15/2011 10/10/2013 Overview: [facility] 02/2011- partial CBD obs s/p lap [...] of this encounter (statuses as of 01/04/2024) [facility] History of Past illness Narrative* Problem Noted Date Diagnosed Date Resolved Date Acute bilateral low back laura n without sciatica 11/26/2020 01/23/2021 Contact dermatitis and other eczema due to other specified agent 10/07/2012 04/15/2016 Eczematous dermatitis 10/07/20122015 Xerosis cutis 10/07/2012 04/15/2016 Postinflammatory skin changes 10/07/2012 04/15/2016 Cholecystitis 07/15/2011 10/10/2013 Overview: [facility] 02/2011- partial CBD obs s/p lap [...] of this encounter (statuses as of 01/05/2024) [facility] History of Past illness Narrative* Problem Noted Date Diagnosed Date Resolved Date Acute bilateral low back laura n without sciatica 11/26/2020 01/23/2021 Contact dermatitis and other eczema due to other specified agent 10/07/2012 04/15/2016 Eczematous dermatitis 10/07/20122015 Xerosis cutis 10/07/2012 04/15/2016 Postinflammatory skin changes 10/07/2012 04/15/2016 Cholecystitis 07/15/2011 10/10/2013 Overview: [facility] 02/2011- partial CBD obs s/p lap [...] of this encounter (statuses as of 01/24/2024) [facility] History of Past illness Narrative* Problem Noted Date Diagnosed Date Resolved Date Acute bilateral low back laura n without sciatica 11/26/2020 01/23/2021 Contact dermatitis and other eczema due to other specified agent 10/07/2012 04/15/2016 Eczematous dermatitis 10/07/20122015 Xerosis cutis 10/07/2012 04/15/2016 Postinflammatory skin changes 10/07/2012 04/15/2016 Cholecystitis 07/15/2011 10/10/2013 Overview: [facility] 02/2011- partial CBD obs s/p lap [...] of this encounter (statuses as of 01/29/2024) [facility] History of Past illness Narrative* Problem Noted Date Diagnosed Date Resolved Date Acute bilateral low back laura n without sciatica 11/26/2020 01/23/2021 Contact dermatitis and other eczema due to other specified agent 10/07/2012 04/15/2016 Eczematous dermatitis 10/07/20122015 Xerosis cutis 10/07/2012 04/15/2016 Postinflammatory skin changes 10/07/2012 04/15/2016 Cholecystitis 07/15/2011 10/10/2013 Overview: [facility] 02/2011- partial CBD obs s/p lap [...] of this encounter (statuses as of 01/31/2024) [facility] History of Past illness Narrative* Problem Noted Date Diagnosed Date Resolved Date Acute bilateral low back laura n without sciatica 11/26/2020 01/23/2021 Contact dermatitis and other eczema due to other specified agent 10/07/2012 04/15/2016 Eczematous dermatitis 10/07/20122015 Xerosis cutis 10/07/2012 04/15/2016 Postinflammatory skin changes 10/07/2012 04/15/2016 Cholecystitis 07/15/2011 10/10/2013 Overview: [facility] 02/2011- partial CBD obs s/p lap [...] of this encounter (statuses as of 02/02/2024) [facility] History of Past illness Narrative* Problem Noted Date Diagnosed Date Resolved Date Acute bilateral low back laura n without sciatica 11/26/2020 01/23/2021 Contact dermatitis and other eczema due to other specified agent 10/07/2012 04/15/2016 Eczematous dermatitis 10/07/20122015 Xerosis cutis 10/07/2012 04/15/2016 Postinflammatory skin changes 10/07/2012 04/15/2016 Cholecystitis 07/15/2011 10/10/2013 Overview: [facility] 02/2011- partial CBD obs s/p lap [...] of this encounter (statuses as of 02/23/2024) [facility] History of Past illness Narrative* Problem Noted Date Diagnosed Date Resolved Date Acute bilateral low back laura n without sciatica 11/26/2020 01/23/2021 Contact dermatitis and other eczema due to other specified agent 10/07/2012 04/15/2016 Eczematous dermatitis 10/07/20122015 Xerosis cutis 10/07/2012 04/15/2016 Postinflammatory skin changes 10/07/2012 04/15/2016 Cholecystitis 07/15/2011 10/10/2013 Overview: [facility] 02/2011- partial CBD obs s/p lap [...] of this encounter (statuses as of 02/28/2024) [facility] History of Present illness Narrative* Lisa Stein (Rt), Tech - 11/19/2020 4:30 PM EST Radiology Service [...] 19, 2020 4:41 PM [facility] Author [facility] Lux [facility] April 02, 2023 4:12pm Note Date/Time April 02, 2023 3:59p [facility] Medical Records Department [address] [place] [address] Discharge Summary 04/02/23 1558 MR#: [id number] Acct: [id number] Name: DORA BRYANT Rep #:[id number] 26 : 1945 77 From: Dana Lux DO PCP: Dr. Pastor Garcia MD Status :ADM SARIAH Location: [place] [address] Providers Date of Admission: 04/01/23 Date of [...] mg/mL subcutaneous syringe (Prolia) 60 mg subcut [id number] #1 mL 04/30/22 levothyroxine 25 mcg tablet [...] who presented to the emergency department at [facility] on 04/01/2023 with visual changes. She has [...] has an eye appointment to see her bass viol repairer on Wednesday, April 05 but this worried her soshe [...] She does have an appointment with her bass viol repairer on Wednesday and I encouraged her to [...] (Auto) 73.0 H, Lymph % (Auto) 18.3 L,[place] % (Auto) 6.7, Eos % (Auto) 0.8, [...] % (Auto) 54.4, Lymph % (Auto) 32.3, [place] % (Auto) 8.3, Eos % (Auto) 3.6, [...] 19:16 EDT Reading Location ID and State: [facility] / [place] , Service support , Echocardiogram 04/01/23 22:12 Interpretation Summary The estimated ejection fraction is 70 %. No evidence for diastolic dysfunction. Pulmonary artery systolic pressure is 45 mmHg. Ordering Physician: Erik Yoder Referring Physician: PASTOR GARCIA Performed By: Adriana Raymond, MELCHOR Brain MRI 04/02/23 07:10 IMPRESSION: (NOT LISTED [...] Prolia 60 mg/mL syringe 60 mg subcut [id number] Qty: 1 1RF levothyroxine 25 mcg tablet [...] Self Care Charges/Coding Visit Charges Inpatient E&M: 94423 Disch Hosp 04/02/23 1612 <Electronically signed by Dana Lux DO> Cosigner Signature (if applicable): CC: Dr. Pastor Garcia MD; Dr. Zoltan Worley MD; Dr. Dana Lux DO~ Signed [facility] Work Phone: Evaluation note* Diagnosis Chronic bilateral low back pain without sciatica- Primary Chronic pain of both hips Fall in home, initial encounter [facility] Diagnosis Vaginal irritation- Primary Unspecified noninflammatory disorder of vagina [facility] Diagnosis Hypopituitarism (HCC)- Primary Panhypopituitarism Essential hypertension Unspecified essential hypertension Mixed hyperlipidemia [facility] Diagnosis Leukocytosis, unspecified type- Primary Abdominal pain, generalized [facility] Diagnosis Leukocytosis, unspecified type [facility] Diagnosis Neutrophilia- Primary Other specified disease of white blood cells [facility] Diagnosis Vaginal disorder- Primary Unspecified noninflammatory disorder of vagina [facility] Diagnosis Onset Date Resolution Status History of pituitary tumor c hronic Osteoporosis chronic Secondary adrenal insufficiency chronic Secondary hypothyroidism chr onic [facility] Work Phone: Evaluation note* Diagnosis Neutrophilia- Primary Other specified disease of white blood cells Leukocytosis, unspecified type [facility] Diagnosis Leukocytosis, unspecified type- Primary Neutrophilia Other specified disease of white blood cells Essential hypertension Unspecified essential hypertension Mixed hyperlipidemia Hypopituitarism (HCC) Panhypopituitarism Gastroesophageal reflux disease without esophagitis Esophageal reflux Stage 3a chronic kidney disease (HCC) Vaginal irritation Unspecified noninflammatory disorder of vagina [facility] Diagnosis Neutrophilia- Primary Other specified disease of white blood cells Leukocytosis, unspecified type documented in this encounter [facility] note* Diagnosis Fall, subsequent encounter- Primary Closed fracture of right side of maxilla with routine healing, subsequent encounter Closed fracture of orbit with routine healing, subsequent encounter Laceration of right hand without foreign body, subsequent encounter Facial laceration, subsequent encounter documented in this encounter [facility] note* Diagnosis Wrist pain, right- Primary Pain in joint, forearm Hand pain, right Pain in limb Screening mammogram for breast cancer documented in this encounter [facility] note* Diagnosis Right wrist pain- Primary Pain in joint, forearm documented in this encounter [facility] note* Diagnosis Acute cough- Primary Expiratory wheezing documented in this encounter [facility] noteNo assessment information [facility] Work Phone: Evaluation note* Diagnosis Hypopituitarism (HCC) Panhypopituitarism Gastroesophageal reflux disease without esophagitis Esophageal reflux documented in this encounter [facility] note* Diagnosis Essential hypertension- Primary Unspecified essential hypertension Hypopituitarism (HCC) Panhypopituitarism Glucocorticoid deficiency (HCC) Glucocorticoid deficiency Senile osteoporosis documented in this encounter [facility] note* Diagnosis Onset Date Resolution Status Vision abnormalities acute Benign essential hypertension chronic 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 Secondary adrenal insufficiency [facility] Work Phone: Evaluation note* Diagnosis Pituitary adenoma (HCC)- Primary Benign neoplasm of pituitary gland and craniopharyngeal duct (pouch) documented in this encounter [facility] note* Diagnosis Onset Date Resolution Status Vision abnormalities resolve d Glucocorticoid deficiency ch ronic History of pituitary tumor c hronic Osteoporosis chronic Secondary hypothyroidism chr onic [facility] Work Phone: Evaluation note* Diagnosis Vaginal discharge- Primary Leukorrhea, not specified as infective Vaginal itching Pruritus of genital organs [facility] 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 Pain in [place], right [facility] Diagnosis Colitis- Primary Other and unspecified noninfectious gastroenteritis and colitis Allergic reaction to contrast material, initial encounter Stage 3a chronic kidney disease (HCC) [facility] Diagnosis Daron infection- Primary Candidiasis of unspecified site [facility] Diagnosis Upper respiratory tract infection, unspecified type- Primary [facility] [...] Esophageal reflux [facility] Diagnosis Gastroesophageal reflux disease without esophagitis [...] subsequent encounter [facility] Diagnosis Fall in home, initial encounter- [...] healing, subsequent encounter [facility] Diagnosis Pain in right lower leg- Primary [facility] Diagnosis Chronic bilateral low back pain with right-sided sciatica [facility] Diagnosis Pain in right lower leg [facility] Diagnosis Rib pain on right side Chest pain, unspecified [facility] Expiratory wheezing [facility]* Diagnosis Neutrophilia Other specified disease of white blood cells Leukocytosis, unspecified type [facility] Diagnosis Wrist pain, right Pain in joint, forearm Hand pain, right Pain in limb [facility] Diagnosis Chronic bilateral low back pain without sciatica Chronic pain of both hips [facility] Diagnosis Foot pain, left Pain in limb [facility] Cough [facility] Diagnosis Acute bilateral low back pain without sciatica [facility] Diagnosis Acute bilateral low back pain with right-sided sciatica- Primary Essential hypertension Unspecified essential hypertension Mixed hyperlipidemia Stage 3a chronic kidney disease (HCC) [facility] Diagnosis Acute left-sided low back pain with left-sided sciatica- Primary Lower abdominal tenderness Abdominal tenderness, other specified site [facility] Diagnosis Essential hypertension- Primary Unspecified essential hypertension Stage 3a chronic kidney disease (HCC) Gastroesophageal reflux disease without esophagitis Esophageal reflux Acquired hypothyroidism Unspecified hypothyroidism Hypopituitarism (HCC) Panhypopituitarism [facility] Diagnosis Onset Date Resolution Status Admit Date Glucocorticoid deficiency chronic May 18, 2025 10:45am History of pituitary tumor chronic May 18, 2025 10:45am Osteoporosis chronic May 18 025 10:45am Secondary hypothyroidism chronic May 18, 2025 10:45am [facility] Work Phone: Hospital Discharge instructions [...] return to the hospital for repeat [facility] Reason for referral (narrative)* Diagnostic Procedure Only (Routine) - Pending Review Specialty Diagnoses / Procedures Referred By Mallory t Referred To Contact BR IMAGING Diagnoses Screening mammogram for breast cancer Procedures JOON SCREENING SCREENING MAMMOGRAPHY BI 2-[place] [address] [place] [address] [facility] [address] [place] [address] Referral ID Status Reason Start Date Expiration Date Visits Requested Visits Authorized [id number] Pending Review Auto-Generat ed Referral 08/17/2022 08/16/2023 1 1 * Diagnostic Procedure Only (Routine) - Closed Specialty Diagnoses / Procedures Referred By Mallory lopez Referred To Contact XR IMAGING Diagnoses Wrist pain, right Hand pain, right Procedures XR HAND GENERAL 3V PA/LAT/OBL RIGHT RADEX HAND MINIMUM 3 VIEWS Elan Garcia MD [address] [place] [address] X[facility] Imaging Referral ID Status Reason Start Date Expiration Date V isits Requested Visits Authorized [id number] Closed Auto-Generate d Referral 07/17/2022 08/16/2023 1 1 * Diagnostic Procedure Only (Routine) - Closed Specialty Diagnoses / Procedures Referred By Mallory t Referred To Contact XR IMAGING Diagnoses Wrist pain, right Hand pain, right Procedures XR WRIST GENERAL 3V PA/LAT/OBL RIGHT RADEX WRIST COMPLETE MINIMUM 3 VIEWS Elan Garcia MD [address] [place] [address] Xr Imaging Referral ID Status Reason Start Date Expiration Date V isits Requested Visits Authorized [id number] Closed Auto-Generate d Referral 07/17/2022 08/16/2023 1 1 [facility] for referral (narrative)* Diagnostic Procedure Only (Routine) - Closed Specialty Diagnoses / Procedures Referred By Contac t Referred To Contact XR IMAGING Diagnoses Fall in home, subsequent encounter Closed fracture of ramus of right pubis with routine healing, subsequent encounter Procedures XR HIP GENERAL 3V PELV/AP/LAT RIGHT RADEX HIP UNILATERAL WITH PELVIS 2-3 VIEWS Elan Garcia MD [address] [place] [address] [place] [address] Referral ID Status Reason Start Date Expiration Date V isits Requested Visits Authorized [id number] Closed Auto-Generate d Referral 05/18/2024 06/12/2025 1 1 [facility] for referral (narrative)* Diagnostic Procedure Only (Urgent) - Authorized Specialty Diagnoses / Procedures Referred By Contac t Referred To Contact US IMAGING Diagnoses Pain in right lower leg Procedures US DVT LOWER RIGHT DUP-SCAN XTR VEINS UNILATERAL/LIMITED STUDY PodlogEdna walter APRN.CNP [address] [place] [address] [place] [address] Referral ID Status Reason Start Date Expiration Date Visits Requested Visits Authorized [id number] Authorized Auto-Generat ed Referral 07/31/2024 08/30/2025 1 1 [facility] for referral (narrative)* Diagnostic Procedure Only (Routine) - Closed Specialty Diagnoses / Procedures Referred By Contac t Referred To Contact XR IMAGING Diagnoses Chronic bilateral low back pain with right-sided sciatica Procedures XR LUMBAR GENERAL 3V AP/LAT/L5-S1 RADEX SPINE LUMBOSACRAL 2/3 VIEWS Elan Garcia MD [address] [place] [address] [place] [address] Referral ID Status Reason Start Date Expiration Date V isits Requested Visits Authorized [id number] Closed Auto-Generate d Referral 01/05/2024 02/03/2025 1 1 [facility] for referral (narrative)* Diagnostic Procedure Only (Urgent) - Closed Specialty Diagnoses / Procedures Referred By Contac t Referred To Contact US IMAGING Diagnoses Pain in right lower leg Procedures US DVT LOWER RIGHT DUP-SCAN XTR VEINS UNILATERAL/LIMITED STUDY Podlogar, LUISA Bishop [address] [place] [address] [place] [address] Referral ID Status Reason Start Date Expiration Date V isits Requested Visits Authorized [id number] Closed Auto-Generate d Referral 07/31/2024 08/30/2025 1 1 [facility] for referral (narrative)* Diagnostic Procedure Only (Routine) - Closed Specialty Diagnoses / Procedures Referred By Contac t Referred To Contact XR IMAGING Diagnoses Rib pain on right side Procedures XR RIBS/CHEST 3V AP RIB/OBLS/CXR RIGHT RADEX RIBS UNI W/POSTEROANT CH MINIMUM 3 VIEWS Elan Garcia MD [address] [place] [address] [place] [address] Referral ID Status Reason Start Date Expiration Date V isits Requested Visits Authorized [id number] Closed Auto-Generate d Referral 12/01/2023 12/30/2024 1 1 [facility] for referral (narrative)* Diagnostic Procedure Only (Routine) - Closed Specialty Diagnoses / Procedures Referred By Contac t Referred To Contact XR IMAGING Diagnoses Wrist pain, right Hand pain, right Procedures XR HAND GENERAL 3V PA/LAT/OBL RIGHT RADEX HAND MINIMUM 3 VIEWS Elan Garcia MD [address] [place] [address] [place] [address] Referral ID Status Reason Start Date Expiration Date V isits Requested Visits Authorized [id number] Closed Auto-Generate d Referral 07/17/2022 08/16/2023 1 1 * Diagnostic Procedure Only (Routine) - Closed Specialty Diagnoses / Procedures Referred By Contac t Referred To Contact XR IMAGING Diagnoses Wrist pain, right Hand pain, right Procedures XR WRIST GENERAL 3V PA/LAT/OBL RIGHT RADEX WRIST COMPLETE MINIMUM 3 VIEWS Elan Garcia MD [address] [place] [address] [place] [address] Referral ID Status Reason Start Date Expiration Date V isits Requested Visits Authorized [id number] Closed Auto-Generate d Referral 07/17/2022 08/16/2023 1 1 [facility] for referral (narrative)* Diagnostic Procedure Only (Routine) - Closed Specialty Diagnoses / Procedures Referred By Contac t Referred To Contact XR IMAGING Diagnoses Chronic pain of both hips Procedures XR HIP BILATERAL 5V PEL/AP/LAT EACH HIP RADEX HIPS BILATERAL WITH PELVIS MINIMUM 5 VIEWS Elan Garcia MD [address] [place] [address] [place] [address] Referral ID Status Reason Start Date Expiration Date V isits Requested Visits Authorized [id number] Closed Auto-Generate d Referral 03/20/2022 2023 1 1 * Diagnostic Procedure Only (Routine) - Closed Specialty Diagnoses / Procedures Referred By Contac t Referred To Contact XR IMAGING Diagnoses Chronic bilateral low back pain without sciatica Procedures XR LUMBAR GENERAL 3V AP/LAT/L5-S1 RADEX SPINE LUMBOSACRAL 2/3 VIEWS Elan Garcia MD [address] [place] [address] [place] [address] Referral ID Status Reason Start Date Expiration Date V isits Requested Visits Authorized [id number] Closed Auto-Generate d Referral 03/20/2022 2023 1 1 [facility] for referral (narrative)No reason for referral [facility] N[facility]* Diagnostic Procedure Only (Routine) - Closed Specialty Diagnoses / Procedures Referred By Contac t Referred To Contact XR IMAGING Diagnoses Fall in home, subsequent encounter Closed fracture of ramus of right pubis with routine healing, subsequent encounter Procedures XR HIP GENERAL 3V PELV/AP/LAT RIGHT RADEX HIP UNILATERAL WITH PELVIS 2-3 VIEWS Elan Garcia MD [address] [place] [address] [place] [address] Referral ID Status Reason Start Date Expiration Date V isits Requested Visits Authorized [id number] Closed Auto-Generate d Referral 05/18/2024 06/12/2025 1 1 [facility] for visit Narrative* Diagnostic Procedure Only (Routine) - Closed Specialty Diagnoses / Procedures Referred By Contac t Referred To Contact XR IMAGING Diagnoses Chronic bilateral low back pain with right-sided sciatica Procedures XR LUMBAR GENERAL 3V AP/LAT/L5-S1 RADEX SPINE LUMBOSACRAL 2/3 VIEWS Elan Garcia MD [facility] [place] [address] [place] [address] Referral ID Status Reason Start Date Expiration Date V isits Requested Visits Authorized [id number] Closed Auto-Generate d Referral 01/05/2024 02/03/2025 1 1 [facility] for visit Narrative* Diagnostic Procedure Only (Routine) - Closed Specialty Diagnoses / Procedures Referred By Contac t Referred To Contact XR IMAGING Diagnoses Rib pain on right side Procedures XR RIBS/CHEST 3V AP RIB/OBLS/CXR RIGHT RADEX RIBS UNI W/POSTEROANT CH MINIMUM 3 VIEWS Elan Garcia MD [address] [place] [address] [place] [address] Referral ID Status Reason Start Date Expiration Date V isits Requested Visits Authorized [id number] Closed Auto-Generate d Referral 12/01/2023 12/30/2024 1 1 [facility] for visit Narrative* Diagnostic Procedure Only (Routine) - Closed Specialty Diagnoses / Procedures Referred By Contac t Referred To Contact XR IMAGING Diagnoses Wrist pain, right Hand pain, right Procedures XR HAND GENERAL 3V PA/LAT/OBL RIGHT RADEX HAND MINIMUM 3 VIEWS Elan Garcia MD [address] [place] [address] [place] [address] Referral ID Status Reason Start Date Expiration Date V isits Requested Visits Authorized [id number] Closed Auto-Generate d Referral 07/17/2022 08/16/2023 1 1 [facility] for visit Narrative* Diagnostic Procedure Only (Routine) - Closed Specialty Diagnoses / Procedures Referred By Contac t Referred To Contact XR IMAGING Diagnoses Chronic pain of both hips Procedures XR HIP BILATERAL 5V PEL/AP/LAT EACH HIP RADEX HIPS BILATERAL WITH PELVIS MINIMUM 5 VIEWS Elan Garcia MD [address] [place] [address] [place] [address] Referral ID Status Reason Start Date Expiration Date V isits Requested Visits Authorized [id number] Closed Auto-Generate d Referral 03/20/2022 2023 1 1 [facility] Summary Purpose Family History No Family [...] FoundDocuments on File Type Date 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 Advance Directive(s) 06/23/2019 8:51 AM Advance Directive(s) 10/28/2018 9:24 AM Advance Directive(s) 07/21/2017 9:15 AM Documents on File Type Date Recorded 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 Advance Directive(s) 06/23/2019 8:51 AM Advance Directive(s) 10/28/2018 9:24 AM Advance Directive(s) 07/21/2017 9:15 AM Advance Directive Response Recorded Date/ Time Living Will Yes July 13 9 8:33am Power of Media Center Specialist Yes July 13 019 8:33am Advance Directive Response Recorded Date/ Time Living Will Yes June 13, 2022 12:22pm Power of Media Center Specialist Yes June 13 12:22pm Advance Directive Response Recorded Date/ Time Living Will No April 01, 2023 5 :49pm Power of Media Center Specialist No April 01, 2023 5:49pm Advance Directive Response Recorded Date/ Time Name of Medical Power of Media Center Specialist ab bryant April 01, 2023 10:20pm Living Will Yes April 01, 2023 1 0:20pm Power of Media Center Specialist Yes April 01, 2023 10:20pm Advance Directive Response Recorded Date/ Time Living Will Yes April 01, 2023 9 :20pm Power of Media Center Specialist Yes April 01, 2023 9:20pm Advance Directive Response Recorded Date/ Time Name of Medical Power of Media Center Specialist Ab Bryant . January 22, 2024 11:01pm Living Will Yes January 22, 2024 11:01pm Power of Media Center Specialist Yes January 21 11:01pm Advance Directive Response Recorded Date/ Time Living Will No May 11, 2024 4:20am Do you have a Healthcare Power of Media Center Specialist? No May 11, 2024 4:20am Reason for Referral Specialty Diagnoses / Procedures Referred By Contac t Referred To Contact Pain Management Diagnoses Chronic bilateral low back pain without sciatica Chronic pain of both hips Procedures CONSULT TO PAIN MGT OFFICE/OUTPATIENT [facility] 60-74 MINUTES Elan Garcia MD [address] [place] [address] Referral ID Status Reason Start Date Expiration Date Visits Requested Visits Authorized [id number] Authorized PCP Requested Referral 03/20/2022 03/20/2023 1 1 Specialty Diagnoses / Procedures Referred By Contac t Referred To Contact XR IMAGING Diagnoses Chronic pain of both hips Procedures XR HIP BILATERAL 5V PEL/AP/LAT EACH HIP RADEX HIPS BILATERAL WITH PELVIS MINIMUM 5 VIEWS Elan Garcia MD [address] [place] [address] Xr Imaging Referral ID Status Reason Start Date Expiration Date V isits Requested Visits Authorized [id number] Closed Auto-Generate d Referral 03/20/2022 2023 1 1 Specialty Diagnoses / Procedures Referred By Contac t Referred To Contact XR IMAGING Diagnoses Chronic bilateral low back pain without sciatica Procedures XR LUMBAR GENERAL 3V AP/LAT/L5-S1 RADEX SPINE LUMBOSACRAL 2/3 VIEWS Elan Garcia MD [address] [place] [address] Xr Imaging Referral ID Status Reason Start Date Expiration Date V isits Requested Visits Authorized [id number] Closed Auto-Generate d Referral 03/20/2022 2023 1 1 Specialty Diagnoses / Procedures Referred By Contac t Referred To Contact CT IMAGING Diagnoses Leukocytosis, unspecified type Procedures CT ABD/PEL WO IVCON CT ABD & PELVIS W/O CONTRAST Elan Garcia MD [address] [place] [address] Ct Imaging Referral ID Status Reason Start Date Expiration Date Visits Requested Visits Authorized [id number] Pending Review Auto-Genera marily Referral Patient Cleared - Admin/Chair man/Directo r advise to proceed 05/11/2022 06/10/2023 2 2 Referral ID Status Reason Start Date Expiration Date Visits Requested Visits Authorized [id number] Authorized Auto-Generat ed Referral Patient Cleared - Admin/Chairm an/Director advise to proceed 05/12/2022 06/11/2022 2 2 Specialty Diagnoses / Procedures Referred By Contac t Referred To Contact Gynecology Diagnoses Vaginal disorder Procedures CONSULT TO GYNECOLOGY OFFICE/OUTPATIENT [facility] 60-74 MINUTES Podlogar, LUISA Bishop [address] [place] [address] Referral ID Status Reason Start Date Expiration Date Visits Requested Visits Authorized [id number] Authorized PCP Requested Referral Auto-Generate d Referral 05/15/2022 05/15/2023 1 1 Specialty Diagnoses / Procedures Referred By Contac t Referred To Contact Hematology Diagnoses Neutrophilia Leukocytosis, unspecified type Procedures CONSULT TO HEMATOLOGY OFFICE/OUTPATIENT [facility] 60-74 MINUTES Elan Garcia MD [address] [place] [address] Referral ID Status Reason Start Date Expiration Date Visits Requested Visits Authorized [id number] Authorized PCP Requested Referral 06/03/2022 06/03/2023 1 1 Specialty Diagnoses / Procedures Referred By Contac t Referred To Contact MR IMAGING Diagnoses Right wrist pain Procedures MRI WRIST WO IVCON RT MRI ANY JT UPPER EXTREMITY W/O CONTRAST MATRL Elan Garcia MD [facility] [place] [address] Mr Imaging Referral ID Status Reason Start Date Expiration Date Visits Requested Visits Authorized [id number] Pending Review Auto-Generat ed Referral 07/20/2022 08/19/2023 1 1 Specialty Diagnoses / Procedures Referred By Contac t Referred To Contact [facility] Diagnoses Chronic bilateral low back pain with right-sided sciatica Procedures CONSULT TO PHYSICAL THERAPY PHYSICAL THERAPY EVALUATION HIGH COMPLEX 45 MINS Elan Garcia MD [address] [place] [address] [facility] [address] [place] [address] Referral ID Status Reason Start Date Expiration Date Visits Requested Visits Authorized [id number] Pending Review Auto-Generat ed Referral 01/05/2024 01/04/2025 1 1 Specialty Diagnoses / Procedures Referred By Contac t Referred To Contact XR IMAGING Diagnoses Chronic bilateral low back pain with right-sided sciatica Procedures XR LUMBAR GENERAL 3V AP/LAT/L5-S1 RADEX SPINE LUMBOSACRAL 2/3 VIEWS Elan Garcia MD [address] [place] [address] [place] [address] Referral ID Status Reason Start Date Expiration Date V isits Requested Visits Authorized [id number] Closed Auto-Generate d Referral 01/05/2024 02/03/2025 1 [...] HIGH COMPLEX 45 MINS Elan Garcia MD [address] [place] [address] [facility] [address] [address] Referral ID Status Reason Start Date Expiration Date Visits Requested Visits Authorized [id number] Pending Review Auto-Generat ed Referral 05/13/2024 05/13/2025 1 1 Specialty Diagnoses / Procedures Referred By Contac t Referred To Contact XR IMAGING Diagnoses Fall in home, subsequent encounter Closed fracture of ramus of right pubis with routine healing, subsequent encounter Procedures XR HIP GENERAL 3V PELV/AP/LAT RIGHT RADEX HIP UNILATERAL WITH PELVIS 2-3 VIEWS Elan Garcia MD [address] [place] [address] [place] [address] Referral ID Status Reason Start Date Expiration Date Visits Requested Visits Authorized [id number] Authorized Auto-Generat ed Referral 05/18/2024 06/12/2025 1 [...] Howard, PT, DPT [facility] [address] [address] Referral ID Status Reason Start Date Expiration Date Visits Requested Visits Authorized [id number] Waiting for Online Response PCP Requested Referral Auto-Generate d Referral 06/01/2024 11/21/2024 8 8 Specialty Diagnoses / Procedures Referred By Contac t Referred To Contact [facility] Diagnoses Acute left-sided low back pain with left-sided sciatica Procedures CONSULT TO PHYSICAL THERAPY PHYSICAL THERAPY EVALUATION HIGH COMPLEX 45 MINS Older, SHELLY Lr.BINDING NICKER [address] [place] [address] [facility] [place] [address] [place] [address] Referral ID Status Reason Start Date Expiration Date Visits Requested Visits Authorized [id number] Pending Review Auto-Generat ed Referral 09/25/2024 09/25/2025 1 1 Chief Complaint and Reason for Visit Chief Complaint Admit Date 6 M FU May 18, 2025 10:4 5am LOWER BACK PAIN THORACIC AND NECK PAIN J [facility] 2024 4:31pm Reason for Visit Admit Date [...] M FU May 18, 2025 10:4 5am Chief Complaint Admit Date 6 M FU May 18, 2025 10:4 5am LOWER BACK PAIN THORACIC AND NECK PAIN J [facility] 2024 4:31pm Chronic kidney disease, stage 3a June 042024 9:26am kidney stone protocol June 06, 2025 1: 02pm Chief Complaint Admit Date 6 M FU May 18, 2025 10:4 5am LOWER BACK PAIN THORACIC AND NECK PAIN J [facility] 2024 4:31pm Chronic kidney disease, stage 3a June 042024 9:26am kidney stone protocol June 06, 2025 1: 02pm Chronic kidney disease, stage 3b June 082024 11:41am Additional Source Comments INFORMATION SOURCE (unrecogn ized section and content) DATE CREATED AUTHOR 11/01/2018 [facility] DATE CREATED AUTHOR AUTHOR'S ORGANIZ ATION 12/14/2024 [facility] DATE CREATED AUTHOR AUTHOR'S ORGANIZ ATION 06/18/2025 [facility] Source Comments (unrecognize d section and content) In the event this informatio n is protected by the Federal Confidentiality of Alcohol and Drug Abuse Patient Records regulations: The Federal rules restrict any use of the information to criminally investigate or prosecute any alcohol or drug abuse patient.[facility] the event this information is protected by the Federal Confidentiality of Alcohol and Drug Abuse Patient Records regulations: The Federal rules restrict any use of the information to criminally investigate or prosecute any alcohol or drug abuse patient.[facility] Hospital[facility] the event this information is protected by the Federal Confidentiality of Alcohol and Drug Abuse Patient Records regulations: The Federal rules restrict any use of the information to criminally investigate or prosecute any alcohol or drug abuse patient.[facility] the event this information is protected by the Federal Confidentiality of Alcohol and Drug Abuse Patient Records regulations: The Federal rules restrict any use of the information to criminally investigate or prosecute any alcohol or drug abuse patient.[facility] Hospital[facility] the event this information is protected by the Federal Confidentiality of Alcohol and Drug Abuse Patient Records regulations: The Federal rules restrict any use of the information to criminally investigate or prosecute any alcohol or drug abuse patient.[facility] HospitalIn the event this information is protected by the Federal Confidentiality of Alcohol and Drug Abuse Patient Records regulations: The Federal rules restrict any use of the information to criminally investigate or prosecute any alcohol or drug abuse patient.[facility] Hospital[facility] the event this information is protected by the Federal Confidentiality of Alcohol and Drug Abuse Patient Records regulations: The Federal rules restrict any use of the information to criminally investigate or prosecute any alcohol or drug abuse patient.[facility] HospitalIn the event this information is protected by the Federal Confidentiality of Alcohol and Drug Abuse Patient Records regulations: The Federal rules restrict any use of the information to criminally investigate or prosecute any alcohol or drug abuse patient.[facility] HospitalIn the event this information is protected by the Federal Confidentiality of Alcohol and Drug Abuse Patient Records regulations: The Federal rules restrict any use of the information to criminally investigate or prosecute any alcohol or drug abuse patient.[facility] Hospital[facility] the event this information is protected by the Federal Confidentiality of Alcohol and Drug Abuse Patient Records regulations: The Federal rules restrict any use of the information to criminally investigate or prosecute any alcohol or drug abuse patient.[facility] HospitalIn the event this information is protected by the Federal Confidentiality of Alcohol and Drug Abuse Patient Records regulations: The Federal rules restrict any use of the information to criminally investigate or prosecute any alcohol or drug abuse patient.[facility] the event this information is protected by the Federal Confidentiality of Alcohol and Drug Abuse Patient Records regulations: The Federal rules restrict any use of the information to criminally investigate or prosecute any alcohol or drug abuse patient.[facility] Hospital[facility] the event this information is protected by the Federal Confidentiality of Alcohol and Drug Abuse Patient Records regulations: The Federal rules restrict any use of the information to criminally investigate or prosecute any alcohol or drug abuse patient.[facility] HospitalIn the event this information is protected by the Federal Confidentiality of Alcohol and Drug Abuse Patient Records regulations: The Federal rules restrict any use of the information to criminally investigate or prosecute any alcohol or drug abuse patient.[facility] HospitalIn the event this information is protected by the Federal Confidentiality of Alcohol and Drug Abuse Patient Records regulations: The Federal rules restrict any use of the information to criminally investigate or prosecute any alcohol or drug abuse patient.[facility] HospitalIn the event this information is protected by the Federal Confidentiality of Alcohol and Drug Abuse Patient Records regulations: The Federal rules restrict any use of the information to criminally investigate or prosecute any alcohol or drug abuse patient.[facility] HospitalIn the event this information is protected by the Federal Confidentiality of Alcohol and Drug Abuse Patient Records regulations: The Federal rules restrict any use of the information to criminally investigate or prosecute any alcohol or drug abuse patient.[facility] HospitalIn the event this information is protected by the Federal Confidentiality of Alcohol and Drug Abuse Patient Records regulations: The Federal rules restrict any use of the information to criminally investigate or prosecute any alcohol or drug abuse patient.[facility] HospitalIn the event this information is protected by the Federal Confidentiality of Alcohol and Drug Abuse Patient Records regulations: The Federal rules restrict any use of the information to criminally investigate or prosecute any alcohol or drug abuse patient.[facility] HospitalIn the event this information is protected by the Federal Confidentiality of Alcohol and Drug Abuse Patient Records regulations: The Federal rules restrict any use of the information to criminally investigate or prosecute any alcohol or drug abuse patient.[facility] HospitalIn the event this information is protected by the Federal Confidentiality of Alcohol and Drug Abuse Patient Records regulations: The Federal rules restrict any use of the information to criminally investigate or prosecute any alcohol or drug abuse patient.[facility] HospitalIn the event this information is protected by the Federal Confidentiality of Alcohol and Drug Abuse Patient Records regulations: The Federal rules restrict any use of the information to criminally investigate or prosecute any alcohol or drug abuse patient.[facility] HospitalIn the event this information is protected by the Federal Confidentiality of Alcohol and Drug Abuse Patient Records regulations: The Federal rules restrict any use of the information to criminally investigate or prosecute any alcohol or drug abuse patient.[facility] HospitalIn the event this information is protected by the Federal Confidentiality of Alcohol and Drug Abuse Patient Records regulations: The Federal rules restrict any use of the information to criminally investigate or prosecute any alcohol or drug abuse patient.[facility] HospitalIn the event this information is protected by the Federal Confidentiality of Alcohol and Drug Abuse Patient Records regulations: The Federal rules restrict any use of the information to criminally investigate or prosecute any alcohol or drug abuse patient.[facility] HospitalIn the event this information is protected by the Federal Confidentiality of Alcohol and Drug Abuse Patient Records regulations: The Federal rules restrict any use of the information to criminally investigate or prosecute any alcohol or drug abuse patient.[facility] HospitalIn the event this information is protected by the Federal Confidentiality of Alcohol and Drug Abuse Patient Records regulations: The Federal rules restrict any use of the information to criminally investigate or prosecute any alcohol or drug abuse patient.[facility] HospitalIn the event this information is protected by the Federal Confidentiality of Alcohol and Drug Abuse Patient Records regulations: The Federal rules restrict any use of the information to criminally investigate or prosecute any alcohol or drug abuse patient.[facility] HospitalIn the event this information is protected by the Federal Confidentiality of Alcohol and Drug Abuse Patient Records regulations: The Federal rules restrict any use of the information to criminally investigate or prosecute any alcohol or drug abuse patient.[facility] HospitalIn the event this information is protected by the Federal Confidentiality of Alcohol and Drug Abuse Patient Records regulations: The Federal rules restrict any use of the information to criminally investigate or prosecute any alcohol or drug abuse patient.[facility] HospitalIn the event this information is protected by the Federal Confidentiality of Alcohol and Drug Abuse Patient Records regulations: The Federal rules restrict any use of the information to criminally investigate or prosecute any alcohol or drug abuse patient.[facility] HospitalIn the event this information is protected by the Federal Confidentiality of Alcohol and Drug Abuse Patient Records regulations: The Federal rules restrict any use of the information to criminally investigate or prosecute any alcohol or drug abuse patient.[facility] HospitalIn the event this information is protected by the Federal Confidentiality of Alcohol and Drug Abuse Patient Records regulations: The Federal rules restrict any use of the information to criminally investigate or prosecute any alcohol or drug abuse patient.[facility] HospitalIn the event this information is protected by the Federal Confidentiality of Alcohol and Drug Abuse Patient Records regulations: The Federal rules restrict any use of the information to criminally investigate or prosecute any alcohol or drug abuse patient.[facility] HospitalIn the event this information is protected by the Federal Confidentiality of Alcohol and Drug Abuse Patient Records regulations: The Federal rules restrict any use of the information to criminally investigate or prosecute any alcohol or drug abuse patient.[facility] HospitalIn the event this information is protected by the Federal Confidentiality of Alcohol and Drug Abuse Patient Records regulations: The Federal rules restrict any use of the information to criminally investigate or prosecute any alcohol or drug abuse patient.[facility] HospitalIn the event this information is protected by the Federal Confidentiality of Alcohol and Drug Abuse Patient Records regulations: The Federal rules restrict any use of the information to criminally investigate or prosecute any alcohol or drug abuse patient.[facility] HospitalIn the event this information is protected by the Federal Confidentiality of Alcohol and Drug Abuse Patient Records regulations: The Federal rules restrict any use of the information to criminally investigate or prosecute any alcohol or drug abuse patient.[facility] HospitalIn the event this information is protected by the Federal Confidentiality of Alcohol and Drug Abuse Patient Records regulations: The Federal rules restrict any use of the information to criminally investigate or prosecute any alcohol or drug abuse patient.[facility] HospitalIn the event this information is protected by the Federal Confidentiality of Alcohol and Drug Abuse Patient Records regulations: The Federal rules restrict any use of the information to criminally investigate or prosecute any alcohol or drug abuse patient.[facility] HospitalIn the event this information is protected by the Federal Confidentiality of Alcohol and Drug Abuse Patient Records regulations: The Federal rules restrict any use of the information to criminally investigate or prosecute any alcohol or drug abuse patient.[facility] HospitalIn the event this information is protected by the Federal Confidentiality of Alcohol and Drug Abuse Patient Records regulations: The Federal rules restrict any use of the information to criminally investigate or prosecute any alcohol or drug abuse patient.[facility] HospitalIn the event this information is protected by the Federal Confidentiality of Alcohol and Drug Abuse Patient Records regulations: The Federal rules restrict any use of the information to criminally investigate or prosecute any alcohol or drug abuse patient.[facility] HospitalIn the event this information is protected by the Federal Confidentiality of Alcohol and Drug Abuse Patient Records regulations: The Federal rules restrict any use of the information to criminally investigate or prosecute any alcohol or drug abuse patient.[facility] HospitalIn the event this information is protected by the Federal Confidentiality of Alcohol and Drug Abuse Patient Records regulations: The Federal rules restrict any use of the information to criminally investigate or prosecute any alcohol or drug abuse patient.[facility] HospitalIn the event this information is protected by the Federal Confidentiality of Alcohol and Drug Abuse Patient Records regulations: The Federal rules restrict any use of the information to criminally investigate or prosecute any alcohol or drug abuse patient.[facility] HospitalIn the event this information is protected by the Federal Confidentiality of Alcohol and Drug Abuse Patient Records regulations: The Federal rules restrict any use of the information to criminally investigate or prosecute any alcohol or drug abuse patient.[facility] HospitalIn the event this information is protected by the Federal Confidentiality of Alcohol and Drug Abuse Patient Records regulations: The Federal rules restrict any use of the information to criminally investigate or prosecute any alcohol or drug abuse patient.[facility] HospitalIn the event this information is protected by the Federal Confidentiality of Alcohol and Drug Abuse Patient Records regulations: The Federal rules restrict any use of the information to criminally investigate or prosecute any alcohol or drug abuse patient.[facility] HospitalIn the event this information is protected by the Federal Confidentiality of Alcohol and Drug Abuse Patient Records regulations: The Federal rules restrict any use of the information to criminally investigate or prosecute any alcohol or drug abuse patient.[facility] HospitalIn the event this information is protected by the Federal Confidentiality of Alcohol and Drug Abuse Patient Records regulations: The Federal rules restrict any use of the information to criminally investigate or prosecute any alcohol or drug abuse patient.[facility] HospitalIn the event this information is protected by the Federal Confidentiality of Alcohol and Drug Abuse Patient Records regulations: The Federal rules restrict any use of the information to criminally investigate or prosecute any alcohol or drug abuse patient.[facility] HospitalIn the event this information is protected by the Federal Confidentiality of Alcohol and Drug Abuse Patient Records regulations: The Federal rules restrict any use of the information to criminally investigate or prosecute any alcohol or drug abuse patient.[facility] HospitalIn the event this information is protected by the Federal Confidentiality of Alcohol and Drug Abuse Patient Records regulations: The Federal rules restrict any use of the information to criminally investigate or prosecute any alcohol or drug abuse patient.[facility] HospitalIn the event this information is protected by the Federal Confidentiality of Alcohol and Drug Abuse Patient Records regulations: The Federal rules restrict any use of the information to criminally investigate or prosecute any alcohol or drug abuse patient.[facility] HospitalIn the event this information is protected by the Federal Confidentiality of Alcohol and Drug Abuse Patient Records regulations: The Federal rules restrict any use of the information to criminally investigate or prosecute any alcohol or drug abuse patient.[facility] HospitalIn the event this information is protected by the Federal Confidentiality of Alcohol and Drug Abuse Patient Records regulations: The Federal rules restrict any use of the information to criminally investigate or prosecute any alcohol or drug abuse patient.[facility] HospitalIn the event this information is protected by the Federal Confidentiality of Alcohol and Drug Abuse Patient Records regulations: The Federal rules restrict any use of the information to criminally investigate or prosecute any alcohol or drug abuse patient.[facility] HospitalIn the event this information is protected by the Federal Confidentiality of Alcohol and Drug Abuse Patient Records regulations: The Federal rules restrict any use of the information to criminally investigate or prosecute any alcohol or drug abuse patient.[facility] HospitalIn the event this information is protected by the Federal Confidentiality of Alcohol and Drug Abuse Patient Records regulations: The Federal rules restrict any use of the information to criminally investigate or prosecute any alcohol or drug abuse patient.[facility] HospitalIn the event this information is protected by the Federal Confidentiality of Alcohol and Drug Abuse Patient Records regulations: The Federal rules restrict any use of the information to criminally investigate or prosecute any alcohol or drug abuse patient.[facility]In the event this information is protected by the Federal Confidentiality of Alcohol and Drug Abuse Patient Records regulations: The Federal rules restrict any use of the information to criminally investigate or prosecute any alcohol or drug abuse patient.[facility] HospitalIn the event this information is protected by the Federal Confidentiality of Alcohol and Drug Abuse Patient Records regulations: The Federal rules restrict any use of the information to criminally investigate or prosecute any alcohol or drug abuse patient.[facility] HospitalIn the event this information is protected by the Federal Confidentiality of Alcohol and Drug Abuse Patient Records regulations: The Federal rules restrict any use of the information to criminally investigate or prosecute any alcohol or drug abuse patient.[facility] HospitalIn the event this information is protected by the Federal Confidentiality of Alcohol and Drug Abuse Patient Records regulations: The Federal rules restrict any use of the information to criminally investigate or prosecute any alcohol or drug abuse patient.[facility] HospitalIn the event this information is protected by the Federal Confidentiality of Alcohol and Drug Abuse Patient Records regulations: The Federal rules restrict any use of the information to criminally investigate or prosecute any alcohol or drug abuse patient.[facility] HospitalIn the event this information is protected by the Federal Confidentiality of Alcohol and Drug Abuse Patient Records regulations: The Federal rules restrict any use of the information to criminally investigate or prosecute any alcohol or drug abuse patient.[facility] Reason for Visit (unrecogniz ed section and content) Reason Comments Pain right and left hip a nd spine pain Reason Comments Vaginal Problem irritation x3 months Reason Comments Results Reason Comments Lab Orders Reason Comments labs coming from Dr Sung office Reason Comments Results Endo lab questions a nd concerns Reason Comments Radiology CT Specialty Diagnoses / Procedures Referred By Mallory lopez Referred To Contact CT IMAGING Diagnoses Leukocytosis, unspecified type Procedures CT ABD/PEL WO IVCON CT ABD & PELVIS W/O CONTRAST Elan Garcia MD [address] [place] [address] Ct Imaging Referral ID Status Reason Start Date Expiration Date Visits Requested Visits Authorized [id number] Authorized Auto-Generat ed Referral Patient Cleared - Admin/Chairm an/Director advise to proceed 05/12/2022 06/11/2022 2 2 Reason Comments Orders Reason Comments F/U 6 months Reason Comments New Patient Evaluation Specialty Diagnoses / Procedures Referred By Mallory t Referred To Contact Hematology Diagnoses Neutrophilia Leukocytosis, unspecified type Procedures CONSULT TO HEMATOLOGY OFFICE/OUTPATIENT NEW HIGH MDM 60-74 MINUTES Elan Garcia MD [address] [place] [address] Referral ID Status Reason Start Date Expiration Date V isits Requested Visits Authorized [id number] Closed PCP Requested Referral 06/03/2022 06/03/2023 1 [...] Education Specialty Diagnoses / Procedures Referred By Contac t Referred To Contact [facility] Diagnoses Fall in home, subsequent encounter Other fracture of unspecified thoracic vertebra, initial encounter for closed fracture (HCC) Closed fracture of ramus of right pubis with routine healing, subsequent encounter Procedures CONSULT TO PHYSICAL THERAPY PHYSICAL THERAPY EVALUATION HIGH COMPLEX 45 MINS Elan Garcia MD [address] [place] [address] [facility] [address] [place] [address] Referral ID Status Reason Start Date Expiration Date V isits Requested Visits Authorized [id number] Closed Auto-Generate d Referral 11/22/2023 11/21/2024 1 [...] Howard, PT, DPT [facility] [address] [place] [place] [address] Referral ID Status Reason Start Date Expiration Date Visits Requested Visits Authorized [id number] Authorized PCP Requested Referral Auto-Generate d Referral [...] LOWER RIGHT DUP-SCAN XTR VEINS UNILATERAL/LIMITED STUDY PodlogEdna walter APRN.ARACELI [address] [place] [address] [id number] Referral ID Status Reason Start Date Expiration Date V isits Requested Visits Authorized [id number] Closed Auto-Generate d Referral 07/31/2024 08/30/2025 1 1 Reason Onset Date Comments Refill Request 08/23/2024 Reason Comments Follow Up 6 month Reason Comments Recheck Low back pain Reason Comments Follow Up Reason Onset Date Comments Population Health Navigation Outreach 11/13/2024 [employer] AW[employer] Initiative Reason Comments Medication Question Care Teams (unrecognized sec tion and content) Rag Inspector Relationship Specialty Start Date End Date Elan Garcia MD [address] [place], [place] [id number] PCP - General Family Practice 10/23/20 Rag Inspector Relationship Specialty Start Date End Date Elan Garcia MD [address] [place], [place] [id number] PCP - General Family Practice 10/23/20 Rag Inspector Relationship Specialty Start Date End Date Elan Garcia MD [address] [place], [place] [id number] PCP - General Family Practice 10/23/20 Rag Inspector Relationship Specialty Start Date End Date Elan Garcia MD [address] [place] [address] PCP - General Family Practice 10/23/20 Rag Inspector Relationship Specialty Start Date End Date Elan Garcia MD [address] [place] [address] PCP - General Family Practice 10/23/20 Rag Inspector Relationship Specialty Start Date End Date Elan Garcia MD [address] [place] [address] PCP - General Family Practice 10/23/20 Rag Inspector Relationship Specialty Start Date End Date Elan Garcia MD [address] [place] [address] PCP - General Family Practice 10/23/20 Rag Inspector Relationship Specialty Start Date End Date Elan Garcia MD [address] [place] [address] PCP - General Family Practice 10/23/20 Rag Inspector Relationship Specialty Start Date End Date Elan Garcia MD [address] [place] [address] PCP - General Family Practice 10/23/20 Rag Inspector Relationship Specialty Start Date End Date Elan Garcia MD [address] [place] [address] PCP - General Family Practice 10/23/20 Rag Inspector Relationship Specialty Start Date End Date Elan Garcia MD [address] [place] [address] PCP - General Family Practice 10/23/20 Rag Inspector Relationship Specialty Start Date End Date Elan Garcia MD [address] [place] [address] PCP - General Family Practice 10/23/20 Rag Inspector Relationship Specialty Start Date End Date Elan Garcia MD [address] [place] [address] PCP - General Family Practice 10/23/20 Rag Inspector Relationship Specialty Start Date End Date Elan Garcia MD [address] [place] [address] PCP - General Family Medicine 10/23/20 Rag Inspector Relationship Specialty Start Date End Date Elan Garcia MD [address] [place] [address] PCP - General Family Medicine 10/23/20 Rag Inspector Relationship Specialty Start Date End Date Elan Garcia MD [address] [place] [address] PCP - General Family Medicine 10/23/20 Rag Inspector Relationship Specialty Start Date End Date Elan Garcia MD [address] [place] [address] PCP - General Family Medicine 10/23/20 Rag Inspector Relationship Specialty Start Date End Date Elan Garcia MD [address] [place] [address] PCP - General Family Medicine 10/23/20 Rag Inspector Relationship Specialty Start Date End Date Elan Garcia MD [address] [place] [address] PCP - General Family Medicine 10/23/20 Team Status: Active Member Role Status Dates Dr. Kasey Bashir MD Family Provider Active Dr. Pastor Garcia MD Primary Care Provider Acti ve Team Status: Active Member Role Status Dates Dr. Pastor Garcia MD Primary Care Provider Acti ve Dr. Cory Jaclyn , DO Emergency Provider Active Dr. Erik Yoder [...] Care Provider Acti ve Dr. Cory Anaya , Emergency Provider Active Dr. Erik Yoder MD Admit Provider, Other Provide r Active Dr. Dana Lux DO Attending Provider, Other Provide r Active Team Status: Inactive Member Role Status Dates Dr. Pastor Garcia MD Primary Care Provider Acti ve Dr. Cory Anaya DO Emergency Provider Active Dr. Erik Yoder MD Admit Provider, Other Provide r Active Dr. Dana Lux DO Attending Provider Active Rag Inspector Relationship Specialty Start Date End Date Elan Garcia MD [address] [place], [place] [id number] PCP - General Family Medicine 10/23/20 Team [...] Provider, Referring Provi cresencio Active Alejandra Ascencio STYLE ADVISOR-C Other Provider Active Rag Inspector Relationship Specialty Start Date End Date Elan Garcia MD [address] [place] [address] PCP - General Family Medicine 10/23/20 Rag Inspector Relationship Specialty Start Date End Date Elan Garcia MD [address] [place] [address] PCP - General Family Medicine 10/23/20 Rag Inspector Relationship Specialty Start Date End Date Elan Garcia MD [address] [place] [address] PCP - General Family Medicine 10/23/20 Team Status: Inactive Member Role Status Dates Dr. Pastor Garcia MD Primary Care Provider Acti ve Dr. Juan Liu MD Attending Provider Active Team Status: Inactive Member Role Status Dates Dr. Pastor Garcia MD Primary Care Provider Acti ve Dr. Kyle Torres DO Emergency Provider Active Rag Inspector Relationship Specialty Start Date End Date Elan Garcia MD [address] [place] [address] PCP - General Family Medicine 10/23/20 Rag Inspector Relationship Specialty Start Date End Date Elan Garcia MD [address] [place] [address] PCP - General Family Medicine 10/23/20 Rag Inspector Relationship Specialty Start Date End Date Elan Garcia MD [address] [place] [address] PCP - General Family Medicine 10/23/20 Rag Inspector Relationship Specialty Start Date End Date Elan Garcia MD [address] [place] [address] PCP - General Family Medicine 10/23/20 Rag Inspector Relationship Specialty Start Date End Date Elan Garcia MD [address] [place] [address] PCP - General Family Medicine 10/23/20 Rag Inspector Relationship Specialty Start Date End Date Elan Garcia MD [address] [place] [address] PCP - General Family Medicine 10/23/20 Rag Inspector Relationship Specialty Start Date End Date Elan Garcia MD [address] [place] [address] PCP - General Family Medicine 10/23/20 Rag Inspector Relationship Specialty Start Date End Date Elan Garcia MD [address] [place] [address] PCP - General Family Medicine 10/23/20 Rag Inspector Relationship Specialty Start Date End Date Elan Garcia MD [address] [place] [address] PCP - General Family Medicine 10/23/20 Rag Inspector Relationship Specialty Start Date End Date Elan Garcia MD [address] [place] [address] PCP - General Family Medicine 10/23/20 Rag Inspector Relationship Specialty Start Date End Date Elan Garcia MD [address] [place] [address] PCP - General Family Medicine 10/23/20 Rag Inspector Relationship Specialty Start Date End Date Elan Garcia MD [address] [place] [address] PCP - General Family Medicine 10/23/20 Rag Inspector Relationship Specialty Start Date End Date Elan Garcia MD [address] [place] [address] PCP - General Family Medicine 10/23/20 Rag Inspector Relationship Specialty Start Date End Date Elan Garcia MD [address] [place] [address] PCP - General Family Medicine 10/23/20 Rag Inspector Relationship Specialty Start Date End Date Elan Garcia MD [address] [place] [address] PCP - General Family Medicine 10/23/20 Rag Inspector Relationship Specialty Start Date End Date Elan Garcia MD [address] [place] [address] PCP - General Family Medicine 10/23/20 Rag Inspector Relationship Specialty Start Date End Date Elan Garcia MD [address] [place] [address] PCP - General Family Medicine 10/23/20 Rag Inspector Relationship Specialty Start Date End Date Elan Garcia MD [address] [place] [address] PCP - General Family Medicine 10/23/20 Rag Inspector Relationship Specialty Start Date End Date Elan Garcia MD [address] [place] [address] PCP - General Family Medicine 10/23/20 Rag Inspector Relationship Specialty Start Date End Date Elan Garcia MD [address] [place] [address] PCP - General Family Medicine 10/23/20 Rag Inspector Relationship Specialty Start Date End Date Elan Garcia MD [address] [place] [address] PCP - General Family Medicine 10/23/20 Rag Inspector Relationship Specialty Start Date End Date Elan Garcia MD [address] [place] [address] PCP - General Family Medicine 10/23/20 Rag Inspector Relationship Specialty Start Date End Date Elan Garcia MD [address] [place] [address] PCP - General Family Medicine 10/23/20 PodlogEdna walter APRN.BINDING NICKER [address] [place] [address] [employer] Family [facility] 10/28/24 Rag Inspector Relationship Specialty Start Date End Date Elan Garcia MD [address] [place] [address] PCP - General Family Medicine 10/23/20 PodlogarEdna APRN.BINDING NICKER [address] [place] [address] [employer] Family [facility] 10/28/24 Rag Inspector Relationship Specialty Start Date End Date Elan Garcia MD [address] [place] [address] PCP - General Family Medicine 10/23/20 PodlogarEdna APRN.BINDING NICKER [address] [place] [address] [employer] Family [facility] 10/28/24 Team Status: Active Member Role/Relationship [...] May 21, 2025 End: May 21, 2025 Team Status: Inactive Member Role/Relationship Status Dates Dr. Yon Salas MD Primary Care Provider Active Start: June 04, 2025 End: June 04, 2025 Dr. Yon Salas MD Attending Provider Active Start: June 04, 2025 End: June 04, 2025 Dr. Yon Salas MD Referring Provider Active Start: June 04, 2025 End: June 04, 2025 Team Status: Active Member Role/Relationship Status Dates Dr. Yon Salas MD Primary Care Provider Active Start: June 05, 2025 Dr. Yon Salas MD Attending Provider Active Start: June 05, 2025 Team Status: Active Member Role/Relationship Status Dates Dr. Yon Salas MD Primary Care Provider Active Start: June 06, 2025 Dr. Yon Salas MD Attending Provider Active Start: June 06, 2025 Dr. Yon Salas MD Referring Provider Active Start: June 06, 2025 Team Status: Inactive Member Role/Relationship Status Dates Dr. Yon Salas MD Primary Care Provider Active Start: June 05, 2025 End: June 05, 2025 Dr. Yon Salas MD Attending Provider Active Start: June 05, 2025 End: June 05, 2025 Team Status: Active Member Role/Relationship Status Dates Dr. Yon Salas MD Primary Care Provider Active Start: June 08, 2025 Dr. Yon Salas MD Attending Provider Active Start: June 08, 2025 Dr. Yon Salas MD Referring Provider Active Start: June 08, 2025 Team Status: Inactive Member Role/Relationship Status Dates Dr. Yon Salas MD Primary Care Provider Active Start: June 06, 2025 End: June 06, 2025 Dr. Yon Salas MD Attending Provider Active Start: June 06, 2025 End: June 06, 2025 Dr. Yon Salas MD Referring Provider Active Start: June 06, 2025 End: June 06, 2025 Team Status: Inactive Member Role/Relationship Status Dates Dr. Yon Salas MD Primary Care Provider Active Start: June 08, 2025 End: June 08, 2025 Dr. Yon Salas MD Attending Provider Active Start: June 08, 2025 End: June 08, 2025 Dr. Yon Salas MD Referring Provider Active Start: June 08, 2025 End: June 08, 2025 Goals (unrecognized section and content) Goals [...] BE BASED ON THE PRIMARY CLINICAL RECORDS. [facility] [employer] provides no warranty or guarantee of the accuracy or completeness of information in this document.
== END | disposition home or self-care (01) ==
LOC: MRI 12:50
PROVIDERS: PCP Family Medicine Geriatric Medicine; Referring Provider Internal Medicine Endocrinology, Diabetes & Metabolism; Visit Provider Internal Medicine Endocrinology, Diabetes & Metabolism
DX: D49.7 Neoplasm of unspecified behavior of endocrine glands and other parts of nervous system (principal); Z87.898 Personal history of other specified conditions
CPT/HCPCS: 70553; A9575

== ENCOUNTER → 2025-07-10 | Outpatient (CLI) | payer MEDICARE, SELFPAY ==
[2025-07-10 11:37] LABS: Hematocrit 46.7 % (37-47); Hemoglobin 15.4 g/dL (12.0-15.0); Immature Granulocytes Count 0.090 X10^3/uL (0.0-0.0); Mean Corp Hgb Conc 33.0 g/dL (32-36); Mean Corpuscular Volume 97.3 fL (81-99); Mean Platelet Vol. 10.6 fl (6.2-12.0); NRBC Flagged by Analyzer 0 % (0-5); Platelet Count 219 K/mm3 (150-450); RBC Distribution Width CV 13.7 % (11.6-14.6); RBC Distribution Width SD 49.2 fl (35.1-43.9); Red Blood Count 4.80 M/mm3 (4.2-5.4); White Blood Count 12.1 K/mm3 (4.4-11.0)
[2025-07-10 12:39] LABS: AST(SGOT) 25 U/L (<=31); Alanine Aminotransfer ALT/SGPT 14 U/L (<=34); Albumin, Serum 4.2 g/dL (3.4-4.8); Alkaline Phosphatase 90 U/L (35-104); Anion Gap 12 (5-15); BUN 16 mg/dL (4-19); BUN/Creat Ratio 14.7 RATIO (10-20); Calcium,Total 9.3 mg/dL (7.6-11.0); Carbon Dioxide 23.7 mmol/L (21.0-32.0); Chloride 106 mmol/L (98-108); Cholesterol 179 mg/dL (<=200); Globulin 2.5 g/dL (2.2-4.2); Glucose 87 mg/dL (70-99); Low Density Lipoprotein Calc. 91 mg/dL; Potassium 4.0 mmol/L (3.3-5.1); Triglycerides 172 mg/dL; Very Low Density Lipoprotein 34 mg/dL (5-40); Vitamin D,25 Hydroxy 56.8 ng/mL (30-100); cholesterol:hdl ratio screen 3.36
== END | disposition home or self-care (01) ==
LOC: POLAB3 11:26
PROVIDERS: PCP Family Medicine Geriatric Medicine; Visit Provider Family Medicine Geriatric Medicine
DX: I10 Essential (primary) hypertension (principal); E78.5 Hyperlipidemia, unspecified; E03.9 Hypothyroidism, unspecified; E55.9 Vitamin D deficiency, unspecified
CPT/HCPCS: 36415; 80053; 80061; 82306; 84443; 85025

== ENCOUNTER 2025-10-27 07:44 | Emergency (ER) | payer MEDICARE, SELFPAY ==
[2025-10-27 07:45] VITALS: BP 146/82; PULSE 84; RESP 18; TEMP 36.4; O2SAT 100; BMI 24.6
--- NOTE | 2025-10-27 08:16 | ED.VIS.GI ---
HPI HPI - GI History of Present Illness Chief Complaint: Nausea/Vomiting/Diarrhea Informant: patient and family Narrative Narrative: Patient is a 80-year-old female presenting with a week of emesis and diarrhea. - Reports onset of symptoms on Wednesday night, with diarrhea occurring 5-10 times daily, described as very watery. - Emesis began mid-week, with episodes continuing through last night. - Experiences intermittent, brief, jabbing abdominal pains, primarily in the right upper quadrant. - Denies major ongoing pain, hematochezia, or recent antibiotic use. - Reports one episode of low-grade fever earlier in the week, which resolved. - Denies recent travel, sick contacts, or consumption of undercooked meats or raw fish. - Able to maintain fluid intake despite symptoms. - Notes symptom fluctuation, with periods of improvement followed by recurrence. - Under significant stress due to the recent passing of her on September 16. - Surgical history includes tubal ligation and cholecystectomy. 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 Benign essential hypertension Home Medications ?Medication ?Instructions ?Recorded ?Last Taken ?Type calcium carbonate 1,200 mg PO DAILY supplement 08/19/18 10/26/25 History cholecalciferol (vitamin D3) 50 1,000 unit PO DAILY vitamin 08/19/18 10/26/25 History mcg (2,000 unit) capsule enalapril maleate 2.5 mg tablet 2.5 mg PO QHS blood pressure 08/19/18 10/26/25 History denosumab 60 mg/mL subcutaneous 60 mg subcut [id number] #1 mL 05/20/23 05/18/25 Rx syringe (Prolia) acetaminophen 500 mg oral powder 500 - 1,000 mg PO Q6H PRN pain 05/18/25 10/26/25 History packet (Tylenol Extra Strength) hydrocortisone 10 mg tablet 10 mg PO .COMPLEX #180 tabs 05/18/25 10/26/25 Rx pantoprazole 40 mg tablet,delayed 40 mg PO DAILY Acid Reflux 05/18/25 10/26/25 History release Saccharomyces boulardii 1 cap PO DAILY 10/27/25 10/26/25 History diphenoxylate-atropine 2.5 1 tab PO QHS PRN diarrhea #4 tabs 10/27/25 Unknown Rx mg-0.025 mg tablet (Lomotil) levothyroxine 25 mcg tablet 25 mcg PO MOTUTHFRSA thyroid 10/27/25 10/26/25 History levothyroxine 25 mcg tablet 50 mcg PO SUWE 10/27/25 10/24/25 History (Levoxyl) ondansetron 8 mg disintegrating 8 mg PO Q8H PRN nausea and 10/27/25 Unknown Rx tablet vomiting #12 tabs Allergy/AdvReac Type Severity Reaction Status Date / Time nitrofurantoin Allergy Rash Verified 10/27/25 07:48 Penicillins (PCN) Allergy Hives Verified 10/27/25 07:48 rofecoxib (From Vioxx) AdvReac Nausea/Vom/ Verified 10/27/25 07:48 Diarrhea Family History Father Cancer lung Colon cancer Sister Breast cancer Mother Asthma Hypertension CVA (cerebral vascular accident) Unknown Anxiety Asthma Arthritis Breast cancer Colon cancer Diabetes Hypertension Hyperlipidemia Severe allergy Surgical History H/O hand surgery History of colonoscopy (~06/2019) History of esophagogastroduodenoscopy (EGD) (~06/2019) Status post bunionectomy History of benign neoplasm of pituitary gland History of cataract extraction History of laparoscopic cholecystectomy History of tubal ligation History of colonoscopy (~2013) History of esophagogastroduodenoscopy (EGD) (~2013) Social History Smoking Status: Never smoker alcohol intake: never substance use type: does not use what type of physical activity do you participate in: other frequency: 3-4 times per week ROS ROS ED Constitutional Constitutional ED: Reports fever(s) and malaise; Denies chills Eyes Eyes: Denies change in vision or diplopia ENT ENT ED: Denies rhinorrhea or sore throat Cardiovascular Cardiovascular: Denies chest pain or palpitations Respiratory/Chest Respiratory/Chest: Denies cough or dyspnea Gastrointestinal Gastrointestinal: Reports abdominal pain, diarrhea, nausea and vomiting; Denies hematemesis, hematochezia or melena Genitourinary Genitourinary ED: Denies dysuria or hematuria Musculoskeletal Musculoskeletal: Denies back pain or neck pain Integumentary Denies abscess or rash Neurologic Neurologic: Denies headache(s), paresthesias or weakness Psychiatric Psychiatric: Reports anxiety; Denies suicidal thoughts EXAM Physical Exam Const Vital Signs: 10/27/25 07:45 10/27/25 10:00 10/27/25 12:00 Temperature 97.6 F L Temperature Source Oral Pulse Rate 84 88 72 Respiratory Rate 18 16 16 Blood Pressure 146/82 H 147/63 H 119/61 Blood Pressure Mean 103 91 80 Pulse Ox 100 98 99 Oxygen Delivery Method Room Air Room Air Room Air Positive well nourished and well developed General Appearance ED: well developed and NAD HEENT Reports moist mucous membranes normocephalic and atraumatic Eyes PERRL and EOMs intact bilaterally Neck full ROM and supple Resp normal respiratory effort and clear to auscultation bilaterally Cardio regular rate, regular rhythm and no murmurs GI non-distended GI Narrative: Mild-moderate tenderness throughout the right side of the abdomen worse in the lower quadrant than the upper. No guarding or rebound. Rest of the abdomen nontender. No distention normal bowel sounds are present. Auscultation: normoactive bowel sounds Palpation: soft Back/Spine no CVA tenderness General Back: other FROM Extremity normal to inspection General Extremety ED: Negative for edema, pulses abnormal or tenderness General Extremity: Negative for edema or pulses abnormal Neuro oriented x3, CN's II-XII intact bilaterally and no sensory deficits noted Sensorium / Orientation: awake and alert Motor Exam: strength 5/5 throughout Psych mental status grossly normal and thought process normal Skin no rashes or lesions noted and no wounds MDM MDM MDM Narrative Medical decision making narrative: Assessment: The patient is a 80-year-old female presenting for one week of profuse watery diarrhea and intermittent vomiting with episodic right-sided abdominal pain. Exam reveals diffuse right-sided abdominal tenderness. Differential included viral gastroenteritis versus bacterial colitis or other intra-abdominal infection. Labs show no leukocytosis or left shift and normal liver enzymes; BUN/Cr pattern is pre-renal, consistent with dehydration; lipase mildly elevated at 86, attributed to recent emesis. CT abdomen/pelvis demonstrates enteritis without colitis or pancreatitis. Given imaging and laboratory data, viral gastroenteritis with associated dehydration is the most likely diagnosis. Plan: - Administered IV normal saline bolus for volume repletion. - Administered IV Zofran for nausea control. - Administered IV morphine for abdominal pain. - Provided prescriptions: Lomotil (few doses for nocturnal diarrhea) and oral Zofran. - Outpatient stool studies requisition given; results to follow with PCP. - Discharge home with return precautions; admission offered but patient declined. Diagnostics: - CT abdomen/pelvis: enteritis; no colitis, abscess, or pancreatitis. Independently confirmed by meLeonard. - Labs: no leukocytosis or left shift; mild pre-renal azotemia; lipase 86 U/L; normal liver enzymes. - Urinalysis: no evidence of infection. Reevaluations: - After approximately 4?5 hours in ED: improved pain and nausea following IV fluids and medications; no further emesis; unable to produce stool sample; declined admission, agreeable to discharge plan. Lab Data Attestation: I reviewed the patient's lab results. Labs: Laboratory Results - last 24 hr 10/27/25 10/27/25 07:45 08:55 WBC 9.9 RBC 4.75 Hgb 14.8 Hct 44.6 MCV 93.9 MCH 31.2 MCHC 33.2 RDW Std Deviation 49.3 H RDW Coeff of [place] 14.2 Plt Count 260 MPV 9.9 Immature Gran % (Auto) 0.400 Neut % (Auto) 70.0 Lymph % (Auto) 19.8 [place] % (Auto) 8.6 Eos % (Auto) 0.9 Baso % (Auto) 0.3 Absolute Neuts (auto) 6.9 Absolute Lymphs (auto) 1.96 Nucleated RBC % 0 Sodium 138 Potassium 4.4 Chloride 106 Carbon Dioxide 21.6 Anion Gap 10 BUN 25 H Creatinine 0.98 Estim Creat Clear Calc 36.92 L Est GFR (MDRD) Non-Af 59 L BUN/Creatinine Ratio 25.6 H Glucose 91 Calcium 8.6 Total Bilirubin 0.48 AST 20 ALT 13 Alkaline Phosphatase 86 Total Protein 6.7 Albumin 4.2 Globulin 2.5 Albumin/Globulin Ratio 1.7 Lipase 86 H Urine Color Yellow Urine Clarity Clear Urine pH 6.0 Ur Specific [place] 1.020 Urine Protein 15 H Urine Glucose (UA) Normal Urine Ketones Negative Urine Occult Blood 150 H Urine Nitrite Negative Urine Bilirubin Negative Urine Urobilinogen Normal Ur Leukocyte Esterase 25 H Urine RBC 0-5 SEEN Urine WBC 0-5 SEEN Ur Squamous Epith Cells 0-5 SEEN Urine Bacteria 0 SEEN Urine Mucus 0 SEEN Radiography Diagnostic Testing: Clinical Impression(s) from Imaging Studies Abdomen/Pelvis CT 10/27/25 10:15 IMPRESSION: Dilated bowel loops with fluid concerning for enteritis. Scattered colonic diverticulosis. Reading Location: PENDING SALE TO [facility] Discharge Plan Triage Chief Complaint: Nausea/Vomiting/Diarrhea ED Provider: Leonard Syed Dx/Rx/DC Orders Clinical Impression: Gastroenteritis, Mild dehydration Instructions: ED Diarrhea, Unknown Cause Prescriptions: New diphenoxylate-atropine [Lomotil] 2.5-0.025 mg tablet 1 tab PO QHS PRN (Reason: diarrhea) Qty: 4 0RF ondansetron 8 mg tablet,disintegrating 8 mg PO Q8H PRN (Reason: nausea and vomiting) Qty: 12 0RF No Action Prolia 60 mg/mL syringe 60 mg subcut [id number] Qty: 1 1RF pantoprazole 40 mg tablet,delayed release (DR/EC) 40 mg PO DAILY Tylenol Extra Strength 500 mg powder in packet 500 - 1,000 mg PO Q6H PRN (Reason: pain) hydrocortisone 10 mg tablet 10 mg PO .COMPLEX Qty: 180 3RF Rx Instructions: 10 mg PO 10 mg am and 5 mg afternoon. Double dose if fever.; enalapril maleate 2.5 MG tablet 2.5 mg PO QHS calcium carbonate 600 MG tablet 1,200 mg PO DAILY cholecalciferol (vitamin D3) 2,000 UNIT capsule 1,000 unit PO DAILY levothyroxine [Levoxyl] 25 mcg tablet 50 mcg PO SUWE Saccharomyces boulardii [Daily Probiotic (S. boulardii)] 1 cap PO DAILY levothyroxine 25 mcg tablet 25 mcg PO MOTUTHFRSA Other Ambulatory Orders: ENTERIC PATHOGEN PANEL STOOL (Routine) Timeframe: 3 Days Facility: [facility] - Location: Laboratory Ordered By: Dr. Leonard Kunal Stool Lactoferrin/WBC (Routine) Timeframe: 3 Days Facility: [facility] - Location: Laboratory Ordered By: Dr. Leonard Syed Primary Care Provider: Yon Salas Chi Referrals: Yon Salas Chi, MD [Primary Care Provider, Geriatrics] - As soon as possible Print Language: Arabic Disposition Disposition: Home, Self Care
[2025-10-27 08:24] LABS: Mucous, Urine 0 SEEN /hpf (<or=2+)
[2025-10-27 08:25] LABS: Color, Urine Yellow (Yellow); Glucose, Dipstick Normal (Normal); Ketone-Dipstick Negative (Negative); Leukocyte Esterase-Dipstick 25 /ul (Negative); Nitrite-Dipstick Negative (Negative); Occult Blood-Urine 150 /ul (Negative); Protein-Dipstick 15 mg/dl (Negative); Specific Gravity, Urine 1.020 (1.002-1.030); Urine Bilirubin Dipstick Negative (Negative)
--- OUTSIDE RECORDS SUMMARY | 2025-10-27 08:25 | XMS RPT_ITS | CCD ---
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 Kasey Bashir Primary Care Provider Dr. Kasey Bashir Referring Provider Dr. Lei Sung Attending Provider Elan Garcia MD Primary Care Provider Elan Garcia MD Primary Care Provider Elan Garcia MD Primary Care Provider Dr. Pastor Garcia Primary Care Provider [phone] Dr. Cory Anaya Emergency Provider Dr. Erik Yoder Attending Provider Dr. Ravin Ham Attending Provider Dr. Saida Maki Attending Provider Dr. Erik Yoder Admit Provider Dr. Erik Yoder Other Provider Dr. Dana Lux Attending Provider Dr. Dana Lux Other Provider Dr. Dana Lux Referring Provider Dr. Pastor Garcia Referring Provider Dr. Lei Sung Attending Provider Dr. Pastor Garcia Primary Care Provider Dr. Juan Liu Attending Provider Elan Garcia MD Primary Care Provider Podlogar DIAGNOSTIC CARDIAC SONOGRAPHER.Edna CHARLES Unavailable ELAN GARCIA Primary Care Unavailab ELAN Cline Referring Unavailab le O'PHOENIX CATHERINE Attending Unavailable ELAN GARCIA Primary Care [...] Care Unavailab le ELAN GARCIA Referring Unavailab ELAN Cline Primary [...] Primary Care Unavailab ELAN Cline Referring Unavailab JG Juarez Attending Unavailable ELAN GARCIA Primary Care UnavailELAN Moore Referring Unavailab Carin ORTIZ, Dr. Baumann Referring Provider King DIANA, Dr. Odom Attending Provider Josue ORTIZ, Dr. Yon Jara Primary Care Provider Josue ORTIZ, Dr. Yon Jara Attending Provider [phone] Josue ORTIZ, Dr. Yon Jara Referring Provider King DIANA, Dr. Odom Other Provider King DIANA, Dr. Odom Referring Provider Josue, Yon Chi Referring Unavailable Josue, Yon Chi Primary Care Unavailable Josue, Yon Chi Attending Unavailable Josue, Yon Chi Referring Unavailable Josue, Yon Chi Primary Care Unavailable Pineda, Lei Consulting Unavailable Josue, Yon Chi Attending Unavailable Josue, Yon Chi Referring Unavailable Josue, Yon Chi Primary Care Unavailable Josue, Yon Chi Attending Unavailable Josue, Yon Chi Primary Care Unavailable Josue, Yon Chi Attending Unavailable Josue, Yon Chi Primary Care Unavailable Josue, Yon Chi Attending Unavailable Josue, Yon Chi Referring Unavailable Pineda, Lei Referring Unavailable Josue, Yon Chi Primary Care Unavailable Pineda, Lei Attending Unavailable Josue, Yon Chi Primary Care Unavailable Josue, Yon Chi Attending Unavailable Josue, Yon Chi Referring Unavailable Josue, Yon Chi Primary Care Unavailable Josue, Yon Chi Attending Unavailable Pineda, Lei Attending Unavailable Bursley, Pastor Primary Care Unavailable Pineda, Lei Attending Unavailable Bursley, Pastor Referring Unavailable Josue, Yon Chi Primary Care Unavailable Allergies Allergy Classification Reported Allergen(s) Allergy Type Date of Onset Reaction(s) Facility (20 sources) meloxicam; Translations: [MELOXICAM] Drug Allergy 03-16-20 13 GI [facility] Repository (20 sources) Penicillins; Translations: [PENICILLINS] Propensity to adverse reactions to drug (disorder) 08-02-20 02 Hives [facility] Repository (20 sources) rofecoxib; Translations: [ROFECOXIB] Drug Allergy 03-16-20 13 GI [facility] Repository (20 sources) Acetaminophen / HYDROcodone; Translations: [HYDROCODONE-ACETA MINOPHEN] Drug Allergy 02-22-20 19 Other: See [facility] (20 sources) Nitrofurantoin; Translations: [NITROFURANTOIN] Drug Allergy 02-22-20 19 Other: See Comments [facility] (1 source) Nitrofurantoin Drug Allergy 05-18-20 25 [facility] Repository Medications Current Medications Medication Drug Class(es) Dates Sig (Normalized) Sig (Original) Acetaminophen (Tylenol Extra Strength) 500 mg powder in packet (8 sources) Start: 05-18-2025 take 500-1000 mg by mouth every six hours as needed Acetaminophen (Tylenol Extra Strength) 500 mg powder in packet Active 500 - 1000 mg PO EVERY 6 HOURS as needed May 18, 2025 12:00am [id number] 200 actuat albuterol 0.09 mg/actuat metered dose [...] Wednesday calcium carbonate 1500 mg oral tablet (17 sources) Start: 08-19-2018 take 2 tablets by [...] vitamin Start: 08-19-2018 take 1000 [IU] by [facility] once daily Cholecalciferol (Vitamin D3) Active 1000 UNIT PO DAILY August 18, 2018 11:00pm Start: 10-11-2017 take 1 capsule by [facility] once daily Cholecalciferol, Vitamin D3, 1,000 unit cap Take 1 capsule by mouth once daily. 10/11/2017 Active Comment on above: Take 1 capsule by [facility] once daily. CYANOCOBALAMIN, VITAMIN B-12, ORAL [...] take 1.25 mg by mouth at bedti me Enalapril Maleate Active 1.25 MG PO AT [...] pantoprazole 40 mg delayed release oral tablet (8 sources) Proton Pump Inhibitor Start: 05-18-20 take [...] / HYDROcodone bitartrate 5 mg oral tablet (16 sources) Opioid Agonist Start: 06-13-2022 End: 01-22-2024 [...] on above: Take 1 capsule by mo [facility] three times daily as needed for cough. ciprofloxacin 500 mg oral tablet (12 sources) Quinolone Antimicrobial Start: 01-23-2024 End: 05-11-2024 take 1 tablet by mouth twice daily Ciprofloxacin Hcl (Cipro) 500 mg tablet Discontinued 500 mg PO TWICE A DAY 14 7 0 January 23, 2024 1:00am May 11, 2024 6:51am Comment on above: Take 1 tablet by [facility] two times a day. cortisone acetate 25 [...] tablet (20 sources) l-Thyroxine Start: 023 End: 025 take 0.1 tablet by mouth once daily [...] on above: Take 1 tablet by [facility] daily before breakfast. Magnesium (8 sources) Start: 05-11-20 End: 05-18-20 Magnesium 200 mg tablet Discontinued 100 mg PO .3XWEEK May 11, 2024 12:00am May 18, 2025 10:49am mecobalamin 1 mg sublingual tablet (17 sources) Start: 06-26-20 End: 04-22-20 Mecobalamin (Vitamin B12) 1,000 mcg tablet,disintegratin g Discontinued 1000 ug SL EVERY OTHER DAY June 26, 2019 12:00am April 22, 2020 9:55am methocarbamol 500 mg oral tablet (8 sources) Muscle Relaxant Start: 05-11-20 End: 05-18-20 take 1 tablet by mouth four times daily as needed for pain Methocarbamol 500 mg tablet Discontinued 500 mg PO 4 TIMES DAILY as needed for Muscle pain/spasm 40 0 May 11, 2024 7:50am May 18, 2024 2:56pm metroNIDAZOLE 500 mg oral tablet (15 sources) Nitroimidazole Antimicrobial Start: 01-23-20 End: 05-11-20 take 1 tablet by mouth three times daily Metronidazole 500 mg tablet Discontinued 500 mg PO THREE TIMES A DAY 21 7 0 January 23, 2024 1:00am May 11, 2024 6:52am Comment on above: Take 1 tablet by [facility] three times a day. TAKE ONE(2) TABLET TWO(2) TIMES DAILY FOR (1) DAY. Multivitamin (Daily Multi-Vitamin) tablet (8 sources) Start: 05-11-20 End: 05-18-20 Multivitamin (Daily Multi-Vitamin) tablet Discontinued 1 {tbl} PO .3XWEEK May 11, 2024 12:00am May 18, 2025 10:50am nitroglycerin 0.4 mg sublingual tablet (17 sources) Nitrate Vasodilator Start: 08-20-20 End: 01-22-20 [...] nausea/vomiting. oxyCODONE hydrochloride 5 mg oral capsule (8 sources) Opioid Agonist Start: 05-11-20 End: 05-18-20 [...] 9:54am raloxifene hydrochloride 60 mg oral tablet (17 sources) Estrogen Agonist/Antagonist Start: 08-19-2018 End: 04-24-2021 take 1 tablet by mouth once daily Raloxifene 60 MG tablet Discontinued 60 mg PO DAILY August 19, 2018 12:00am April 24, 2021 11:40am 100 ml zoledronic acid 0.05 mg/ml injection (17 sources) Bisphosphonate Start: 04-29-2020 End: 04-24-2021 Zoledronic Vcgr-Gcsovjni-Tlb er 5 mg/100 mL piggyback Discontinued 5 mg .Route ONCE 100 0 April 29, 2020 12:00am April 24, 2021 11:40am IVPB over 20 minutes Problems Active Problems Problem Classification Problem Date Documented Da te Episodic/Chronic Abdominal pain (2 sources) Generalized abdominal pain; Translations: [Generalized abdominal pain] Episodic Blindness and vision defects (20 sources) Abnormal vision; Translations: [Unspecified visual disturbance] [...] hypertension] Onset: 0 08-23-2018 Chronic Gastrointestinal hemorrhage (9 sources) Gastrointestinal hemorrhage; Translations: [Gastrointestinal hemorrhage, unspecified] 01-23-2024 Episodic Genitourinary symptoms and ill-defined conditions (20 sources) Microscopic hematuria; Translations: [Other microscopic hematuria] Onset: 4 07-10-2014 Episodic Malaise and fatigue (17 sources) Malaise and fatigue; Translations: [Other malaise] 04-30-2022 Episodic Neoplasms of unspecified nature or uncertain behavior (17 sources) Neoplasm of pituitary gland; Translations: [Neoplasm of unspecified behavior of endocrine glands and other parts of nervous system] 04-30-2020 Episodic Noninfectious gastroenteritis (11 sources) Colitis; Translations: [Noninfective gastroenteritis and colitis, unspecified] Onset: 4 01-23-2024 Episodic Nonspecific chest pain (17 sources) Chest pain; Translations: [Chest pain, unspecified] 08-19-2018 Episodic Open wounds of extremities (20 sources) Open wound of lower limb with complication; Translations: [Unspecified open wound, unspecified lower leg, initial encounter] Onset: 0 Resolved: 3 05-28-2010 Episodic Open wounds of head; neck; and trunk (17 sources) Facial laceration ; Translations: [Laceration without [...] Onset: 3 03-10-2013 Chronic Other endocrine disorders (17 sources) 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; 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 Comment on above: secondary to tumor R esection Other endocrine disorders (17 sources) Hypocortisolism secondary to another disorder; Translations: [...] right eye] 06-21-2022 Episodic Other eye disorders (8 sources) Subconjunctival hemorrhage of right eye; Translations: [...] for healing traumatic fracture of hip] Onset: 05-13-2024 Episodic Other fractures (8 sources) Compression fracture of thoracic spine; Translations: [Wedge compression fracture of unspecified thoracic vertebra, initial encounter for closed fracture] 05-19-2024 Episodic Other gastrointestinal disorders (17 sources) History of gastroesophageal reflux disease; Translations: [Personal history of other diseases of the digestive system] 08-19-2018 Episodic Other injuries and conditions due to external causes (16 sources) Closed injury of head; Translations: [Unspecified injury of head, initial encounter] 06-21-2022 Episodic Other injuries and conditions due to external causes (8 sources) Contusion; Translations: [Unspecified multiple injuries, initial [...] 1 Resolved: 1 Episodic Sprains and strains (16 sources) Sprain of wrist; Translations: [Unspecified sprain [...] Test Name Value Interpretation Reference Range Facility Absolute lymphocyte countOrd ered By: Yon Salas on 07-10-2025 Lymphocytes Auto (Unsp spec) [#/Vol] 2.06 10*3/uL 0.83-4.51 [facility] Absolute neutrophil countOrd ered By: Yon Salas on 07-10-2025 Neutrophils (Bld) [#/Vol] 8.9 10*3/uL High 2.0-7.7 [facility] Anion gap in Serum or Plasma Ordered By: Yon Salas on 07-10-2025 Anion gap [Moles/Vol] 12 mmol/L 5-15 [facility] Automated lymphocyte count a s percentage of total leukocytesOrdered By: Yon Salas on 07-10-2025 Lymphocytes/100 WBC Auto (Unsp spec) 17.0 % Low 19-41 [facility] BUN/creatinine ratioOrdered By: Yon Salas on 07-10-2025 Urea nitrogen/Creatinine [Mass ratio] 14.7 mg/mg 10-20 [facility] Basophil percentageOrdered B y: Yon Salas on 07-10-2025 Basophils/100 WBC (Bld) 0.7 % 0-1 [facility] Bilirubin, totalOrdered By: Yon Salas on 07-10-2025 Bilirubin [Mass/Vol] 0.32 mg/dL 0.00-1.30 [facility] CBC W/Diff, Automatedon 06-22 Absolute Lymph 2.06 X10 3/uL Normal 0.83-4.51 [facility] Comment on above: Performed By: #### L [id number], L506.1001, L500.4050, L500.4100, L100.0100 ####[facility] [address] [place], [address] Absolute Neut 8.9 X10 3/uL High 2.0-7.7 [facility] Comment on above: Performed By: #### L [id number], L506.1001, L500.4050, L500.4100, L100.0100 ####[facility] [address] [place], [address] Basophils/100 WBC (Bld) 0.7 % Normal 0-1 [facility] Comment on above: Performed By: #### L [id number], L506.1001, L500.4050, L500.4100, L100.0100 ####[facility] [address] [place], [address] Eosinophils/100 WBC (Bld) 2.2 % Normal 0-5 [facility] Comment on above: Performed By: #### L [id number], L506.1001, L500.4050, L500.4100, L100.0100 ####[facility] [address] [place], [address] Erythrocyte distribution width (RBC) [Ratio] 13.7 % Normal 11.6-14.6 [facility] Comment on above: Performed By: #### L 501.9520, L506.1001, L500.4050, L500.4100, L100.0100 ####[facility] [address] [place], [address] Hematocrit (Bld) [Volume fraction] 46.7 % Normal 37-47 [facility] Comment on above: Performed By: #### L 501.9520, L506.1001, L500.4050, L500.4100, L100.0100 ####[facility] [address] [place], [address] Hemoglobin (Bld) [Mass/Vol] 15.4 g/dL High 12.0-15.0 [facility] Comment on above: Performed By: #### L 501.9520, L506.1001, L500.4050, L500.4100, L100.0100 ####[facility] [address] [place], [address] IG% 0.700 Normal 0.0-0.9 [facility] Comment on above: Result Comment: IG% - Immature Granulocytes (promyelocytes, myelocytes and metamyelocytes) > 1% indicates that a LEFT SHIFT is Present. Performed By: #### L 501.9520, L506.1001, L500.4050, L500.4100, L100.0100 ####[facility] [address] [place], [address] Lymphocytes/100 WBC (Bld) 17.0 % Low 19-41 [facility] Comment on above: Performed By: #### L 501.9520, L506.1001, L500.4050, L500.4100, L100.0100 ####[facility] [address] [place], [address] MCH (RBC) [Entitic mass] 32.1 pg High 27.0-32.0 [facility] Comment on above: Performed By: #### L 501.9520, L506.1001, L500.4050, L500.4100, L100.0100 ####[facility] [address] [place], [address] MCHC (RBC) [Mass/Vol] 33.0 g/dL Normal 32-36 [facility] Comment on above: Performed By: #### L 501.9520, L506.1001, L500.4050, L500.4100, L100.0100 ####[facility] [address] [place], [address] MCV (RBC) [Entitic vol] 97.3 fL Normal 81-99 [facility] Comment on above: Performed By: #### L 501.9520, L506.1001, L500.4050, L500.4100, L100.0100 ####[facility] [address] [place], [address] Monocytes/100 WBC (Bld) 6.2 % Normal 0-10 [facility] Comment on above: Performed By: #### L 501.9520, L506.1001, L500.4050, L500.4100, L100.0100 ####[facility] [address] [place], [address] Neutrophils/100 WBC (Bld) 73.2 % High 47-70 [facility] Comment on above: Performed By: #### L 501.9520, L506.1001, L500.4050, L500.4100, L100.0100 ####[facility] [address] [place], [address] Nucleated RBC (Bld) [#/Vol] 0 10*3/uL Normal 0-5 [facility] Comment on above: Performed By: #### L 501.9520, L506.1001, L500.4050, L500.4100, L100.0100 ####[facility] [address] [place], [address] Platelet mean volume (Bld) [Entitic vol] 10.6 fL Normal 6.2-12.0 [facility] Comment on above: Performed By: #### L 501.9520, L506.1001, L500.4050, L500.4100, L100.0100 ####[facility] [address] [place], [address] Platelets (Bld) [#/Vol] 219 10*3/uL Normal 150-450 [facility] Comment on above: Performed By: #### L 501.9520, L506.1001, L500.4050, L500.4100, L100.0100 ####[facility] [address] [place], [address] RBC (Bld) [#/Vol] 4.80 10*6/uL Normal 4.2-5.4 [facility] Comment on above: Performed By: #### L 501.9520, L506.1001, L500.4050, L500.4100, L100.0100 ####[facility] [address] [place], [address] RDW SD 49.2 fl High 35.1-43.9 [facility] Comment on above: Performed By: #### L 501.9520, L506.1001, L500.4050, L500.4100, L100.0100 ####[facility] [address] [place], [address] WBC (Bld) [#/Vol] 12.1 10*3/uL High 4.4-11.0 [facility] Comment on above: Performed By: #### L 501.9520, L506.1001, L500.4050, L500.4100, L100.0100 ####[facility] [address] [place], [address] Calculated very low density lipoprotein (VLDL) cholesterol measurementOrdered By: Yon Salas on 07-10-2025 Calculated very low density lipoprotein (VLDL) cholesterol measurement 34 mg/dL 5-40 [facility] Carbon dioxide, total [Moles /volume] in Central venous bloodOrdered By: Yon Salas on 07-10-2025 CO2 [Moles/Vol] 23.7 mmol/L 21.0-32.0 [facility] Chloride assayOrdered By: Tera Salas on 07-10-2025 Chloride [Moles/Vol] 106 mmol/L 98-108 [facility] Comprehensive Metabolic Prof ilon 07-10-2025 Albumin [Mass/Vol] 4.2 g/dL Normal 3.4-4.8 [facility] Comment on above: Performed By: #### L 501.9520, L506.1001, L500.4050, L500.4100, L100.0100 ####[facility] [address] [place], [address] Albumin/Globulin [Mass ratio] 1.7 {ratio} Normal 0.9-2.4 [facility] Comment on above: Performed By: #### L 501.9520, L506.1001, L500.4050, L500.4100, L100.0100 ####[facility] [address] [place], [address] ALK PHOS 90 U/L Normal 35-104 [facility] Comment on above: Performed By: #### L 501.9520, L506.1001, L500.4050, L500.4100, L100.0100 ####[facility] [address] [place], [address] ALT [Catalytic activity/Vol] 14 U/L Normal <=34 [facility] Comment on above: Performed By: #### L 501.9520, L506.1001, L500.4050, L500.4100, L100.0100 ####[facility] [address] [place], [address] AST [Catalytic activity/Vol] 25 U/L Normal <=31 [facility] Comment on above: Performed By: #### L 501.9520, L506.1001, L500.4050, L500.4100, L100.0100 ####[facility] [address] [place], [address] Bilirubin [Mass/Vol] 0.32 mg/dL Normal 0.00-1.30 [facility] Comment on above: Performed By: #### L 501.9520, L506.1001, L500.4050, L500.4100, L100.0100 ####[facility] [address] [place], [address] BUN/CRE 14.7 RATIO Normal 10-20 [facility] Comment on above: Performed By: #### L 501.9520, L506.1001, L500.4050, L500.4100, L100.0100 ####[facility] [address] [place], [address] Calcium [Mass/Vol] 9.3 mg/dL Normal 7.6-11.0 [facility] Comment on above: Performed By: #### L 501.9520, L506.1001, L500.4050, L500.4100, L100.0100 ####[facility] [address] [place], [address] Chloride [Moles/Vol] 106 mmol/L Normal 98-108 [facility] Comment on above: Performed By: #### L 501.9520, L506.1001, L500.4050, L500.4100, L100.0100 ####[facility] [address] [place], [address] CO2 [Moles/Vol] 23.7 mmol/L Normal 21.0-32.0 [facility] Comment on above: Performed By: #### L 501.9520, L506.1001, L500.4050, L500.4100, L100.0100 ####[facility] [address] [place], [address] Creatinine [Mass/Vol] 1.07 mg/dL Normal 0.70-1.20 [facility] Comment on above: Performed By: #### L 501.9520, L506.1001, L500.4050, L500.4100, L100.0100 ####[facility] [address] [place], [address] GAP 12 Normal 5-15 [facility] Comment on above: Performed By: #### L 501.9520, L506.1001, L500.4050, L500.4100, L100.0100 ####[facility] [address] [place], [address] GFR/1.73 sq M.predicted among non-blacks MDRD (S/P/Bld) [Vol rate/Area] 53 mL/min/{1.73_m2} Low >60 [facility] Comment on above: Result Comment: mL/m in/1.73m2 CKD-EPI Creatinine Equation (2020) Performed By: #### L 501.9520, L506.1001, L500.4050, L500.4100, L100.0100 ####[facility] [address] [place], [address] Globulin (S) [Mass/Vol] 2.5 g/dL Normal 2.2-4.2 [facility] Comment on above: Performed By: #### L 501.9520, L506.1001, L500.4050, L500.4100, L100.0100 ####[facility] [address] [place], [address] Glucose [Mass/Vol] 87 mg/dL Normal 70-99 [facility] Comment on above: Performed By: #### L 501.9520, L506.1001, L500.4050, L500.4100, L100.0100 ####[facility] [address] [place], [address] Potassium [Moles/Vol] 4.0 mmol/L Normal 3.3-5.1 [facility] Comment on above: Performed By: #### L 501.9520, L506.1001, L500.4050, L500.4100, L100.0100 ####[facility] [address] [place], [address] Sodium [Moles/Vol] 141 mmol/L Normal 133-145 [facility] Comment on above: Performed By: #### L 501.9520, L506.1001, L500.4050, L500.4100, L100.0100 ####[facility] [address] [place], [address] T PROT 6.6 g/dL Normal 5.9-8.4 [facility] Comment on above: Performed By: #### L 501.9520, L506.1001, L500.4050, L500.4100, L100.0100 ####[facility] [address] [place], [address] Urea nitrogen [Mass/Vol] 16 mg/dL Normal 4-19 [facility] Comment on above: Performed By: #### L 501.9520, L506.1001, L500.4050, L500.4100, L100.0100 ####[facility] [address] [place], [address] Eosinophil percentageOrdered By: Yon Salas on 07-10-2025 Eosinophils/100 WBC (Bld) 2.2 % 0-5 [facility] Erythrocyte distribution wid th ratioOrdered By: Yon Salas on 07-10-2025 Erythrocyte distribution width (RBC) [Ratio] 13.7 % 11.6-14.6 [facility] Erythrocyte distribution wid th standard deviationOrdered By: Yon Salas on 07-10-2025 Erythrocyte distribution width (RBC) [Ratio] 49.2 fl High 35.1-43.9 [facility] Glomerular filtration rate ( GFR) estimation/1.73 sq m using serum, plasma, or whole bOrdered By: Yon Salas on 07-10-2025 GFR/1.73 sq M.predicted among non-blacks MDRD (S/P/Bld) [Vol rate/Area] 53 mL/min/{1.73_m2} Low >60 [facility] Comment on above: mL/min/1.73m2 CKD-EP I Creatinine Equation (2020) Hematocrit Auto (Bld) [Volum e fraction]Ordered By: Yon Salas on 07-10-2025 Hematocrit (Bld) [Volume fraction] 46.7 % 37-47 [facility] Hemoglobin measurementOrdere d By: Yon Salas on 07-10-2025 Hemoglobin (Bld) [Mass/Vol] 15.4 g/dL High 12.0-15.0 [facility] Immature granulocytes/100 WB C Auto (Bld)Ordered By: Yon Salas on 07-10-2025 Immature granulocytes/100 WBC (Bld) 0.700 % 0.0-0.9 [facility] Comment on above: IG% - Immature Granu locytes (promyelocytes, myelocytes and metamyelocytes) > 1% indicates that a LEFT SHIFT is Present. LDL calc ser/plasOrdered By: Yon Salas on 07-10-2025 Cholesterol in LDL [Mass/Vol] 91 mg/dL [facility] Comment on above: Xbabwmcpuo=870-672 m g/dL & Higher Mmof=575 mg/dL or greaterFriedwald Equation for LDL-C Laboratory - Chemistry and C hemistry - challengeOrdered By: Yon Salas on 07-10-2025 AST [Catalytic activity/Vol] 25 U/L <32 [facility] Lipid Profileon 07-10-2025 CHOL:HDL 3.36 Normal [facility] Comment on above: Performed By: #### L 501.9520, L506.1001, L500.4050, L500.4100, L100.0100 ####[facility] [address] [place], [address] Cholesterol [Mass/Vol] 179 mg/dL Normal <=200 [facility] Comment on above: Result Comment: Chol esterol level, Desirable <200 mg/dL Borderline high cholesterol 200-239 mg/dL High cholesterol >=240 mg/dL Recommendations of the NCEP Adult Treatment Panel for the following risk-cutoff thresholds for the [place] population. Performed By: #### L 501.9520, L506.1001, L500.4050, L500.4100, L100.0100 ####[facility] [address] [place], [address] Cholesterol in HDL [Mass/Vol] 53 mg/dL Normal [facility] Comment on above: Result Comment: Anel onal Cholesterol Education Program (NCEP) guidelines: <40 mg/dL: Low HDL-cholesterol (major risk factor for CHD) >= 60 mg/dL: High HDL-cholesterol (negative risk factor for CHD) HDL-cholesterol is affected by a number of factors, e.g. smoking, exercise, hormones, sex and age. Performed By: #### L 501.9520, L506.1001, L500.4050, L500.4100, L100.0100 ####[facility] [address] [place], [address] Cholesterol in LDL [Mass/Vol] 91 mg/dL Normal [facility] Comment on above: Result Comment: Bord rlevdw=836-019 mg/dL Higher Ajyb=709 mg/dL or greater Friedwald Equation for LDL-C Performed By: #### L 501.9520, L506.1001, L500.4050, L500.4100, L100.0100 ####[facility] [address] [place], [address] Cholesterol in VLDL [Mass/Vol] 34 mg/dL Normal 5-40 [facility] Comment on above: Performed By: #### L 501.9520, L506.1001, L500.4050, L500.4100, L100.0100 ####[facility] [address] [place], [place], [address] Triglyceride [Mass/Vol] 172 mg/dL Normal [facility] Comment on above: Result Comment: The drugs N-Acetylcysteine and Metamizole may falsely depress this assay. Normal range: <150 mg/dL Borderline High: 150-199 mg/dL High: 200-499 mg/dL Very High: >500 mg/dL Performed By: #### L 501.9520, L506.1001, L500.4050, L500.4100, L100.0100 ####[facility] [address] [place], [place], [address] MCV (mean corpuscular volume ) determinationOrdered By: Yon Salas on 07-10-2025 MCV (RBC) [Entitic vol] 97.3 fL 81-99 [facility] Mean corpuscular hemoglobin (MCH) determinationOrdered By: Yon Salas on 07-10-2025 MCH (RBC) [Entitic mass] 32.1 pg High 27.0-32.0 [facility] Mean corpuscular hemoglobin concentration (MCHC) determinationOrdered By: Yon Salas on 07-10-2025 MCHC (RBC) [Mass/Vol] 33.0 g/dL 32-36 [facility] Mean platelet volume determi nationOrdered By: Yon Salas on 07-10-2025 Platelet mean volume (Bld) [Entitic vol] 10.6 fL 6.2-12.0 [facility] Monocyte percentageOrdered B y: Yon Salas on 07-10-2025 Monocytes/100 WBC (Bld) 6.2 % 0-10 [facility] Neutrophil percentageOrdered By: Yon Salas on 07-10-2025 Neutrophils/100 WBC (Bld) 73.2 % High 47-70 [facility] Nucleated red blood cell per centageOrdered By: Yon Salas on 07-10-2025 Nucleated RBC/100 WBC (Bld) [Ratio] 0 % 0-5 [facility] Platelet countOrdered By: Tera Salas on 07-10-2025 Platelets (Bld) [#/Vol] 219 10*3/uL 150-450 [facility] Potassium measurement (mass/ volume)Ordered By: Yon Salas on 07-10-2025 Potassium (Unsp spec) [Mass/Vol] 4.0 mmol/L 3.3-5.1 [facility] RBC Auto (Bld) [#/Vol]Ordere d By: Yon Salas on 07-10-2025 RBC (Bld) [#/Vol] 4.80 10*6/uL 4.2-5.4 [facility] Screening total cholesterol/ high density lipoprotein (HDL) cholesterol ratioOrdered By: Yon Salas on 07-10-2025 Cholesterol.total/Cho lesterol in HDL [Mass ratio] 3.36 {ratio} [facility] Serum creatinine measurement (mass/volume)Ordered By: Yon Salas on 07-10-2025 Creatinine [Mass/Vol] 1.07 mg/dL 0.70-1.20 [facility] Serum globulin measurementOr dered By: Yon Salas 07-10-2025 Globulin (S) [Mass/Vol] 2.5 g/dL 2.2-4.2 [facility] Serum glucose measurement (m ass/volume)Ordered By: Yon Salas 07-10-2025 Glucose [Mass/Vol] 87 mg/dL 70-99 [facility] Serum or plasma alanine sorto otransferase (ALT) measurementOrdered By: Yon Salas 07-10-2025 ALT [Catalytic activity/Vol] 14 U/L <35 [facility] Serum or plasma albumin hayden urement (mass/volume)Ordered By: Yon Salas 07-10-2025 Albumin [Mass/Vol] 4.2 g/dL 3.4-4.8 [facility] Serum or plasma albumin/glob ulin mass ratioOrdered By: Yon Salas 07-10-2025 Albumin/Globulin [Mass ratio] 1.7 {ratio} 0.9-2.4 [facility] Serum or plasma alkaline bhavin sphatase measurementOrdered By: Yon Salas 07-10-2025 ALP [Catalytic activity/Vol] 90 U/L 35-104 [facility] Serum or plasma calcium hayden urement (mass/volume)Ordered By: Yon Salas 07-10-2025 Calcium [Mass/Vol] 9.3 mg/dL 7.6-11.0 [facility] Serum or plasma cholesterol in HDL measurement (mass/volume)Ordered By: Yon Salas on 07-10-2025 Cholesterol in HDL [Mass/Vol] 53 mg/dL >40 [facility] Comment on above: National Cholesterol Education Program (NCEP) guidelines:<40 mg/dL: Low HDL-cholesterol (major risk factor for CHD)>= 60 mg/dL: High HDL-cholesterol (negative risk factor for CHD)HDL-cholesterol is affected by a number of factors, e.g. smoking, exercise, hormones, sex and age. Serum or plasma cholesterol measurement (mass/volume)Ordered By: Yon Salas on 07-10-2025 Cholesterol [Mass/Vol] 179 mg/dL <201 [facility] Comment on above: Cholesterol level, D esirable <200 mg/dLBorderline high cholesterol 200-239 mg/dLHigh cholesterol >=240 mg/dLRecommendations of the NCEP Adult Treatment Panel for the following risk-cutoff thresholds for the [place] population. Serum or plasma urea nitroge n measurement (mass/volume)Ordered By: Yon Salas on 07-10-2025 Urea nitrogen [Mass/Vol] 16 mg/dL 4-19 [facility] Sodium levelOrdered By: Yon Salas 07-10-2025 Sodium [Moles/Vol] 141 mmol/L 133-145 [facility] TSH DL <= 0.005 mIU/L QnOrde red By: Yon Salas on 07-10-2025 TSH Qn 1.100 uIU/mL 0.300-4.200 [facility] Thyroid Stim Hormone (TSH)on 07-10-2025 TSH 1.100 uIU/mL Normal 0.300-4.200 [facility] Comment on above: Performed By: #### L 501.9520, L506.1001, L500.4050, L500.4100, L100.0100 ####[facility] [address] [place] [place], [address] Total proteinOrdered By: Yon Salas on 07-10-2025 Protein [Mass/Vol] 6.6 g/dL 5.9-8.4 [facility] Triglycerides measurementOrd ered By: Yon Salas on 07-10-2025 Triglyceride [Mass/Vol] 172 mg/dL <199 [facility] Comment on above: The drugs N-Acetylcy steine and Metamizole may falsely depress this assay. Normal range: <150 mg/dLBorderline High: 150-199 mg/dLHigh: 200-499 mg/dLVery High: >500 mg/dL Vitamin D,25 Hydroxyon 07-10 Vitamin D 25-OH 56.8 ng/mL Normal 30-100 [facility] Comment on above: Result Comment: Mary min D Status Deficiency: <20 ng/mL (50nmol/L) Insufficiency: 20-30 ng/mL (50-75 nmol/L) Sufficiency: 30-100 ng/mL (75-250 nmol/L) Toxicity: >100 ng/mL (>250 nmol/L) Performed By: #### L 501.9520, L506.1001, L500.4050, L500.4100, L100.0100 ####[facility] [address] [place], [address] White blood cell (WBC) count Ordered By: Yon Salas on 07-10-2025 WBC (Bld) [#/Vol] 12.1 10*3/uL High 4.4-11.0 [facility] Magnetic resonance imaging r eportOrdered By: Marques Sanderson on 06-22-2025 Study report [facility] Imaging Services [address] [place] [address] Brain W/WO Contrast MR#: [id number] Acct: [id number] Name: DORA BRYANT Rep #: [id number] : 1945 F 80 From: Jazz Sanderson MD PCP: Dr. Yon Salas MD Status: MADELIN IVY Study:Brain W/WO Contrast Date of Exam: 06/19/25 Exam# [id number] Ordering Dr: Iván Sung i, MD ADDENDUM by Dr. Marques Sanderson MD on 06/22/25 at 1047 Postcontrast images were obtained with 10 cc gadolinium contrast. Reading Location: [facility] 06/22/25 1048 Date cc: Dr. Yon Salas MD; Dr. Lei Sung MD ~* Signed EXAM: BRAIN W/WO CONTRAST CLINICAL HISTORY: PITUITARY PROTOCOL, pituitary tumor COMPARISON: April 02, 2023. TECHNIQUE: Multiplanar, multisequence MR images of the brain were obtained without gadolinium contrast material. FINDINGS: No intracranial hemorrhage, mass, mass effect, midline shift or pathologic extra- axial fluid collection. No hydrocephalus. There is abnormal increased T2 signal and FLAIR signal in the deep white matter on the right and left with moderate bilateral white matter disease. No areas of restricted diffusion to suggest acute ischemia or infarction. No gradient signal blooming artifacts are identified. No cerebellar tonsillar ectopia. Pituitary:. There is a high T2, low T1, nonenhancing cyst in the pituitary fossa measuring 1.5 x 1 point 5 by 1.3 cm with a slightly lobulated margin, with effacement of the clivus and expansion of the pituitary fossa, similar to the prior. There is a low T2, low postcontrast T1 signal solid component in the anterior left aspect of the pituitary fossa measuring 0.4 by 0.5 by 0.4 cm, axial image 06/16, coronal image 09/05. Postcontrast images show displacement of the infundibulum to the right aspect of the pituitary with mild enhancement of the infundibulum, similar to the prior. The ocular globes and intraorbital soft tissues are symmetrically unremarkable. Paranasal sinuses are essentially clear. There is fluid signal in a portion of the right and left mastoid air cells. MRI/Brain W/WO Contrast IMPRESSION: There is abnormal increased T2 signal and FLAIR signal in the deep white matter on the right and left with moderate bilateral white matter disease, similar to the prior. There is a high T2, low T1, nonenhancing cyst in the pituitary fossa measuring 1.5 x 1 point 5 by 1.3 cm with a slightly lobulated margin, with effacement of the clivus and expansion of the pituitary fossa, similar to the prior. There is a low T2, low postcontrast T1 signal solid component in the anterior left aspect of the pituitary fossa measuring 0.4 by 0.5 by 0.4 cm, axial image 06/16, coronal image 09/05. Postcontrast images show displacement ofthe infundibulum to the right aspect of the pituitary with mild enhancement of the infundibulum, similar to the prior. There is no significant interval change. There is fluid signal in a portion of the right and left mastoid air cells, similar to the prior. Reading Location: [facility] CC: Dr. Yon Salas MD; Dr. Lei Sung MD ~ [place] Slabs: Signed [facility] Brain W/WO Contraston 2024 Brain W/WO Contrast [facility] Imaging Services [address] [place] [address] Brain W/WO Contrast MR#: [id number] Acct: [id number] Name: DORA BRYANT Rep #: [id number] : 1945 F 80 From: Marques Sanderson MD PCP: Dr. Yon Salas MD Status: REG CLI Study: Brain W/WO Contrast Date of Exam: 06/19/25 Exam# [id number] Ordering Dr: Lei Sung MD ADDENDUM by Dr. Marques Sanderson MD on 06/22/25 at 1047 Postcontrast images were obtained with 10 cc gadolinium contrast. [facility] 06/22/25 1048 Date cc: Dr. Yon Salas MD; Dr. Lei Sung MD * Signed EXAM: BRAIN W/WO CONTRAST CLINICAL HISTORY: PITUITARY PROTOCOL, pituitary tumor COMPARISON: April 02, 2023. TECHNIQUE: Multiplanar, multisequence MR images of the brain were obtained without gadolinium contrast material. FINDINGS: No intracranial hemorrhage, mass, mass effect, midline shift or pathologic extra- axial fluid collection. No hydrocephalus. There is abnormal increased T2 signal and FLAIR signal in the deep white matter on the right and left with moderate bilateral white matter disease. No areas of restricted diffusion to suggest acute ischemia or infarction. No gradient signal blooming artifacts are identified. No cerebellar tonsillar ectopia. Pituitary:. There is a high T2, low T1, nonenhancing cyst in the pituitary fossa measuring 1.5 x 1 point 5 by 1.3 cm with a slightly lobulated margin, with effacement of the clivus and expansion of the pituitary fossa, similar to the prior. There is a low T2, low postcontrast T1 signal solid component in the anterior left aspect of the pituitary fossa measuring 0.4 by 0.5 by 0.4 cm, axial image /, coronal image 10/15. Postcontrast images show displacement of the infundibulum to the right aspect of the pituitary with mild enhancement of the infundibulum, similar to the prior. The ocular globes and intraorbital soft tissues are symmetrically unremarkable. Paranasal sinuses are essentially clear. There is fluid signal in a portion of the right and left mastoid air cells. MRI/Brain W/WO Contrast IMPRESSION: There is abnormal increased T2 signal and FLAIR signal in the deep white matter on the right and left with moderate bilateral white matter disease, similar to the prior. There is a high T2, low T1, nonenhancing cyst in the pituitary fossa measuring 1.5 x 1 point 5 by 1.3 cm with a slightly lobulated margin, with effacement of the clivus and expansion of the pituitary fossa, similar to the prior. There is a low T2, low postcontrast T1 signal solid component in the anterior left aspect of the pituitary fossa measuring 0.4 by 0.5 by 0.4 cm, axial image /, coronal image 10/15. Postcontrast images show displacement of the infundibulum to the right aspect of the pituitary with mild enhancement of the infundibulum, similar to the prior. There is no significant interval change. There is fluid signal in a portion of the right and left mastoid air cells, similar to the prior. Reading Location: [facility] CC: Dr. Yon Salas MD; Dr. Lei Sung MD [place] Slabs: Signed Normal [facility] Kidney and Bladderon 06-08- 025 Kidney and Bladder [facility] Imaging Services [address] [place] [address] Kidney and Bladder MR#: [id number] Acct: [id number] Name: DORA BRYANT Rep #: [id number] : 1945 F 80 From: Norm goyal MD PCP: Dr. Yon Salas MD Status: REG CLI Study: Kidney and Bladder Date of Exam: 06/08/25 Exam# [id number] Ordering Dr: Yon Salas MD PROCEDURE: KIDNEY AND BLADDER 06/08/2025 REASON FOR EXAM: CHRONIC KIDNEY DISEASE, STAGE 3B TECHNIQUE: KIDNEY AND BLADDER COMPARISON: Prior CT scan dated June 06, 2025. FINDINGS: Kidneys: Normal renal sizes, parenchymal thicknesses, and echotextures. [place]: No evidence of hydronephrosis. Cysts or Masses: [...] midportion of the right kidney. Reading Location: [place] [address] CC: Dr. Yon Salas MD [place] Slabs: Signed Normal [facility] Urine Cultureon 06-07-2025 URC Below infection leve l. Mixed Gram Positive Organisms Peggs Count 1000-10,000 MIXC Mixed contaminants. Submit a new specimen if indicated. Normal [facility] Comment on above: Performed By: #### L 100.0100, L501.9520, M100.2200, L503.7505, L400.0001, L500.4050 ####[facility] [address] [place], [address] Abdomen/Pelvis without Conto n 06-06-2025 Abdomen/Pelvis without Cont [facility] Imaging Services [address] [place] [address] Abdomen/Pelvis without Cont MR#: [id number] Acct: [id number] Name: DORA BRYANT Rep #: [id number] : 1945 F 80 From: Lyla Morrell MD PCP: Dr. Yon Salas MD Status: REG CLI Study: Abdomen/Pelvis without Cont Date of Exam: 05/22 05/16 Exam# [id number] Ordering Dr: Yon Salas MD EXAM: CT [...] hernia. 2. No obstructive uropathy. Reading Location: [facility] CC: Dr. Yon Salas MD [place] Slabs: Signed Normal [facility] Absolute lymphocyte countOrd ered By: Yon Salas on 06-05-2025 Lymphocytes Auto (Unsp spec) [#/Vol] 2.91 10*3/uL 0.83-4.51 [facility] Absolute neutrophil countOrd ered By: Yon Josue on 06-05-2025 Neutrophils (Bld) [#/Vol] 11.2 10*3/uL High 2.0-7.7 [facility] Anion gap in Serum or Plasma Ordered By: Yon Salas on 06-05-2025 Anion gap [Moles/Vol] 11 mmol/L 04-05 [facility] Automated lymphocyte count a s percentage of total leukocytesOrdered By: Yon Salas on 06-05-2025 Lymphocytes/100 WBC Auto (Unsp spec) 19.0 % - [facility] BUN/creatinine ratioOrdered By: Yon Josue on 06-05-2025 Urea nitrogen/Creatinine [Mass ratio] 19.9 mg/mg 10- [facility] Basophil percentageOrdered B y: Yon Salas on 06-05-2025 Basophils/100 WBC (Bld) 0.5 % 0- [facility] Bilirubin Test strip Ql (U)O rdered By: Yon Salas on 06-05-2025 Bilirubin Ql (U) Negative Negative [facility] Bilirubin, totalOrdered By: Yon Josue on 06-05-2025 Bilirubin [Mass/Vol] 0.34 mg/dL 0.00-1.30 [facility] CBC W/Diff, Automatedon 05-22 Absolute Lymph 2.91 X10 3/uL Normal 0.83-4.51 [facility] Comment on above: Performed By: #### L 100.0100, L501.9520, M100.2200, L503.7505, L400.0001, L500.4050 ####[facility] [address] [place], [place], [address] Absolute Neut 11.2 X10 3/uL High 2.0-7.7 [facility] Comment on above: Performed By: #### L 100.0100, L501.9520, M100.2200, L503.7505, L400.0001, L500.4050 ####[facility] [address] [place], [address] Basophils/100 WBC (Bld) 0.5 % Normal 0-1 [facility] Comment on above: Performed By: #### L 100.0100, L501.9520, M100.2200, L503.7505, L400.0001, L500.4050 ####[facility] [address] [place], [address] Eosinophils/100 WBC (Bld) 1.0 % Normal 0-5 [facility] Comment on above: Performed By: #### L 100.0100, L501.9520, M100.2200, L503.7505, L400.0001, L500.4050 ####[facility] [address] [place], [address] Erythrocyte distribution width (RBC) [Ratio] 14.5 % Normal 11.6-14.6 [facility] Comment on above: Performed By: #### L 100.0100, L501.9520, M100.2200, L503.7505, L400.0001, L500.4050 ####[facility] [address] [place], [address] Hematocrit (Bld) [Volume fraction] 46.6 % Normal 37-47 [facility] Comment on above: Performed By: #### L 100.0100, L501.9520, M100.2200, L503.7505, L400.0001, L500.4050 ####[facility] [address] [place], [address] Hemoglobin (Bld) [Mass/Vol] 15.3 g/dL High 12.0-15.0 [facility] Comment on above: Performed By: #### L 100.0100, L501.9520, M100.2200, L503.7505, L400.0001, L500.4050 ####[facility] [address] [place], [address] IG% 0.700 Normal 0.0-0.9 [facility] Comment on above: Result Comment: IG% - Immature Granulocytes (promyelocytes, myelocytes and metamyelocytes) > 1% indicates that a LEFT SHIFT is Present. Performed By: #### L 100.0100, L501.9520, M100.2200, L503.7505, L400.0001, L500.4050 ####[facility] [address] [place], [address] Lymphocytes/100 WBC (Bld) 19.0 % Normal 19-41 [facility] Comment on above: Performed By: #### L 100.0100, L501.9520, M100.2200, L503.7505, L400.0001, L500.4050 ####[facility] [address] [place], [address] MCH (RBC) [Entitic mass] 31.2 pg Normal 27.0-32.0 [facility] Comment on above: Performed By: #### L 100.0100, L501.9520, M100.2200, L503.7505, L400.0001, L500.4050 ####[facility] [address] [place], [address] MCHC (RBC) [Mass/Vol] 32.8 g/dL Normal 32-36 [facility] Comment on above: Performed By: #### L 100.0100, L501.9520, M100.2200, L503.7505, L400.0001, L500.4050 ####[facility] [address] [place], [address] MCV (RBC) [Entitic vol] 95.1 fL Normal 81-99 [facility] Comment on above: Performed By: #### L 100.0100, L501.9520, M100.2200, L503.7505, L400.0001, L500.4050 ####[facility] [address] [place], [address] Monocytes/100 WBC (Bld) 5.7 % Normal 0-10 [facility] Comment on above: Performed By: #### L 100.0100, L501.9520, M100.2200, L503.7505, L400.0001, L500.4050 ####[facility] [address] [place], [address] Neutrophils/100 WBC (Bld) 73.1 % High 47-70 [facility] Comment on above: Performed By: #### L 100.0100, L501.9520, M100.2200, L503.7505, L400.0001, L500.4050 ####[facility] [address] [place], [address] Nucleated RBC (Bld) [#/Vol] 0 10*3/uL Normal 0-5 [facility] Comment on above: Performed By: #### L 100.0100, L501.9520, M100.2200, L503.7505, L400.0001, L500.4050 ####[facility] [address] [place], [address] Platelet mean volume (Bld) [Entitic vol] 10.0 fL Normal 6.2-12.0 [facility] Comment on above: Performed By: #### L 100.0100, L501.9520, M100.2200, L503.7505, L400.0001, L500.4050 ####[facility] [address] [place], [address] Platelets (Bld) [#/Vol] 266 10*3/uL Normal 150-450 [facility] Comment on above: Performed By: #### L 100.0100, L501.9520, M100.2200, L503.7505, L400.0001, L500.4050 ####[facility] [address] [place], [address] RBC (Bld) [#/Vol] 4.90 10*6/uL Normal 4.2-5.4 [facility] Comment on above: Performed By: #### L 100.0100, L501.9520, M100.2200, L503.7505, L400.0001, L500.4050 ####[facility] [address] [place], [address] RDW SD 50.7 fl High 35.1-43.9 [facility] Comment on above: Performed By: #### L 100.0100, L501.9520, M100.2200, L503.7505, L400.0001, L500.4050 ####[facility] [address] [place], [address] WBC (Bld) [#/Vol] 15.3 10*3/uL High 4.4-11.0 [facility] Comment on above: Performed By: #### L 100.0100, L501.9520, M100.2200, L503.7505, L400.0001, L500.4050 ####[facility] [address] [place], [address] Carbon dioxide, total [Moles /volume] in Central venous bloodOrdered By: Yon Salas on 06-05-2025 CO2 [Moles/Vol] 23.9 mmol/L 21.0-32.0 [facility] Chloride assayOrdered By: Tera Salas on 06-05-2025 Chloride [Moles/Vol] 103 mmol/L 98-108 [facility] Comprehensive Metabolic Prof ilon 06-05-2025 Albumin [Mass/Vol] 4.5 g/dL Normal 3.4-4.8 [facility] Comment on above: Performed By: #### L 100.0100, L501.9520, M100.2200, L503.7505, L400.0001, L500.4050 ####[facility] [address] [place], [address] Albumin/Globulin [Mass ratio] 1.8 {ratio} Normal 0.9-2.4 [facility] Comment on above: Performed By: #### L 100.0100, L501.9520, M100.2200, L503.7505, L400.0001, L500.4050 ####[facility] [address] [place], [address] ALK PHOS 92 U/L Normal 35-104 [facility] Comment on above: Performed By: #### L 100.0100, L501.9520, M100.2200, L503.7505, L400.0001, L500.4050 ####[facility] [address] [place], [address] ALT [Catalytic activity/Vol] 17 U/L Normal <=34 [facility] Comment on above: Performed By: #### L 100.0100, L501.9520, M100.2200, L503.7505, L400.0001, L500.4050 ####[facility] [address] [place], [address] AST [Catalytic activity/Vol] 26 U/L Normal <=31 [facility] Comment on above: Performed By: #### L 100.0100, L501.9520, M100.2200, L503.7505, L400.0001, L500.4050 ####[facility] [address] [place], [address] Bilirubin [Mass/Vol] 0.34 mg/dL Normal 0.00-1.30 [facility] Comment on above: Performed By: #### L 100.0100, L501.9520, M100.2200, L503.7505, L400.0001, L500.4050 ####[facility] [address] [place], [address] BUN/CRE 19.9 RATIO Normal 10-20 [facility] Comment on above: Performed By: #### L 100.0100, L501.9520, M100.2200, L503.7505, L400.0001, L500.4050 ####[facility] [address] [place], [address] Calcium [Mass/Vol] 9.3 mg/dL Normal 7.6-11.0 [facility] Comment on above: Performed By: #### L 100.0100, L501.9520, M100.2200, L503.7505, L400.0001, L500.4050 ####[facility] [address] [place], [address] Chloride [Moles/Vol] 103 mmol/L Normal 98-108 [facility] Comment on above: Performed By: #### L 100.0100, L501.9520, M100.2200, L503.7505, L400.0001, L500.4050 ####[facility] [address] [place], [address] CO2 [Moles/Vol] 23.9 mmol/L Normal 21.0-32.0 [facility] Comment on above: Performed By: #### L 100.0100, L501.9520, M100.2200, L503.7505, L400.0001, L500.4050 ####[facility] [address] [place], [address] Creatinine [Mass/Vol] 1.36 mg/dL High 0.70-1.20 [facility] Comment on above: Performed By: #### L 100.0100, L501.9520, M100.2200, L503.7505, L400.0001, L500.4050 ####[facility] [address] [place], [address] GAP 11 Normal 5-15 [facility] Comment on above: Performed By: #### L 100.0100, L501.9520, M100.2200, L503.7505, L400.0001, L500.4050 ####[facility] [address] [place], [address] GFR/1.73 sq M.predicted among non-blacks MDRD (S/P/Bld) [Vol rate/Area] 40 mL/min/{1.73_m2} Low >60 [facility] Comment on above: Result Comment: mL/m in/1.73m2 CKD-EPI Creatinine Equation (2020) Performed By: #### L 100.0100, L501.9520, M100.2200, L503.7505, L400.0001, L500.4050 ####[facility] [address] [place], [address] Globulin (S) [Mass/Vol] 2.5 g/dL Normal 2.2-4.2 [facility] Comment on above: Performed By: #### L 100.0100, L501.9520, M100.2200, L503.7505, L400.0001, L500.4050 ####[facility] [address] [place], [address] Glucose [Mass/Vol] 93 mg/dL Normal 70-99 [facility] Comment on above: Performed By: #### L 100.0100, L501.9520, M100.2200, L503.7505, L400.0001, L500.4050 ####[facility] [address] [place], [address] Potassium [Moles/Vol] 4.2 mmol/L Normal 3.3-5.1 [facility] Comment on above: Performed By: #### L 100.0100, L501.9520, M100.2200, L503.7505, L400.0001, L500.4050 ####[facility] [address] [place], [address] Sodium [Moles/Vol] 139 mmol/L Normal 133-145 [facility] Comment on above: Performed By: #### L 100.0100, L501.9520, M100.2200, L503.7505, L400.0001, L500.4050 ####[facility] [address] [place], [address] T PROT 6.9 g/dL Normal 5.9-8.4 [facility] Comment on above: Performed By: #### L 100.0100, L501.9520, M100.2200, L503.7505, L400.0001, L500.4050 ####[facility] [address] [place], [address] Urea nitrogen [Mass/Vol] 27 mg/dL High 4-19 [facility] Comment on above: Performed By: #### L 100.0100, L501.9520, M100.2200, L503.7505, L400.0001, L500.4050 ####[facility] [address] [place], [address] Eosinophil percentageOrdered By: Yon Josue on 06-05-2025 Eosinophils/100 WBC (Bld) 1.0 % 0-5 [facility] Erythrocyte distribution wid th ratioOrdered By: Yon Salas on 06-05-2025 Erythrocyte distribution width (RBC) [Ratio] 14.5 % 11.6-14.6 [facility] Erythrocyte distribution wid th standard deviationOrdered By: [facility] on 06-[facility] Erythrocyte distribution width (RBC) [Ratio] 50.7 fl High 35.1-43.9 [facility] Glomerular filtration rate ( GFR) estimation/1.73 sq m using serum, plasma, or whole bOrdered By: Yon Salas on 06-05-2025 GFR/1.73 sq M.predicted among non-blacks MDRD (S/P/Bld) [Vol rate/Area] 40 mL/min/{1.73_m2} Low >60 [facility] Comment on above: mL/min/1.73m2 CKD-EP I Creatinine Equation (2020) Hematocrit Auto (Bld) [Volum e fraction]Ordered By: Yon Salas on 06-05-2025 Hematocrit (Bld) [Volume fraction] 46.6 % 37-47 [facility] Hemoglobin measurementOrdere d By: Yon Salas on 06-05-2025 Hemoglobin (Bld) [Mass/Vol] 15.3 g/dL High 12.0-15.0 [facility] Immature granulocytes/100 WB C Auto (Bld)Ordered By: Yon Salas on 06-05-2025 Immature granulocytes/100 WBC (Bld) 0.700 % 0.0-0.9 [facility] Comment on above: IG% - Immature Granu locytes (promyelocytes, myelocytes and metamyelocytes) > 1% indicates that a LEFT SHIFT is Present. Ketones Test strip Ql (U)Ord ered By: Yon Salas on 06-05-2025 Ketones Ql (U) Negative Negative [facility] L503.7505on 06-05-2025 Natriuretic peptide B (Bld) [Mass/Vol] 178 pg/mL Normal <=1800 [facility] Comment on above: Result Comment: Hear t Failure Unlikely: < 300 pg/mL Heart Failure Likely < 50 Years: > 450 pg/mL 50-75 Years: > 900 pg/mL >75 Years: > 1800 pg/mL Performed By: #### L 100.0100, L501.9520, M100.2200, L503.7505, L400.0001, L500.4050 ####[facility] [address] [place], [address] Laboratory - Chemistry and C hemistry - challengeOrdered By: Yon Salas on 06-05-2025 AST [Catalytic activity/Vol] 26 U/L <32 [facility] MCV (mean corpuscular volume ) determinationOrdered By: Yon Salas on 06-05-2025 MCV (RBC) [Entitic vol] 95.1 fL 81-99 [facility] Mean corpuscular hemoglobin (MCH) determinationOrdered By: Yon Salas on 06-05-2025 MCH (RBC) [Entitic mass] 31.2 pg 27.0-32.0 [facility] Mean corpuscular hemoglobin concentration (MCHC) determinationOrdered By: Yon Salas on 06-05-2025 MCHC (RBC) [Mass/Vol] 32.8 g/dL 32-36 [facility] Mean platelet volume determi nationOrdered By: Yon Salas on 06-05-2025 Platelet mean volume (Bld) [Entitic vol] 10.0 fL 6.2-12.0 [facility] Microscopic analysis of urin e for red blood cells (RBC)Ordered By: Yon Salas on 06-05-2025 Microscopic analysis of urine for red blood cells (RBC) 0 SEEN /hpf 0-5 [facility] Monocyte percentageOrdered B y: Yon Salas on 06-05-2025 Monocytes/100 WBC (Bld) 5.7 % 0-10 [facility] Mucus LM Ql (Urine sed)Order ed By: Yon Salas 06-05-2025 Mucus Ql (Urine sed) 0 SEEN /hpf [facility] Natriuretic peptide.B prohor chago N-Terminal [Mass/volume] in Serum or PlasmaOrdered By: Yon Salas 06-05-2025 Natriuretic peptide.B prohormone N-Terminal [Mass/Vol] 178 pg/mL <1800 [facility] Comment on above: Heart Failure Unlike ly: < 300 pg/mLHeart Failure Likely< 50 Years: > 450 pg/mL50-75 Years: > 900 pg/mL>75 Years: > 1800 pg/mL Neutrophil percentageOrdered By: Yon Salas on 06-05-2025 Neutrophils/100 WBC (Bld) 73.1 % High 47-70 [facility] Nitrite Test strip Ql (U)Ord ered By: Yon Salas on 06-05-2025 Nitrite Ql (U) Negative Negative [facility] Nucleated red blood cell per centageOrdered By: Yon Salas 06-05-2025 Nucleated RBC/100 WBC (Bld) [Ratio] 0 % 0-5 [facility] Platelet countOrdered By: Tera Salas on 06-05-2025 Platelets (Bld) [#/Vol] 266 10*3/uL 150-450 [facility] Potassium measurement (mass/ volume)Ordered By: Yon Salas on 06-05-2025 Potassium (Unsp spec) [Mass/Vol] 4.2 mmol/L 3.3-5.1 [facility] Protein Test strip Ql (U)Ord ered By: Yon Salas on 06-05-2025 Protein Ql (U) Negative Negative [facility] RBC Auto (Bld) [#/Vol]Ordere d By: Yon Salas on 06-05-2025 RBC (Bld) [#/Vol] 4.90 10*6/uL 4.2-5.4 [facility] Serum creatinine measurement (mass/volume)Ordered By: Yon Salas 06-05-2025 Creatinine [Mass/Vol] 1.36 mg/dL High 0.70-1.20 [facility] Serum globulin measurementOr dered By: Yon Salas 06-05-2025 Globulin (S) [Mass/Vol] 2.5 g/dL 2.2-4.2 [facility] Serum glucose measurement (m ass/volume)Ordered By: Yon Salas 06-05-2025 Glucose [Mass/Vol] 93 mg/dL 70-99 [facility] Serum or plasma alanine sorto otransferase (ALT) measurementOrdered By: Yon Salas 06-05-2025 ALT [Catalytic activity/Vol] 17 U/L <35 [facility] Serum or plasma albumin hayden urement (mass/volume)Ordered By: Yon Salas 06-05-2025 Albumin [Mass/Vol] 4.5 g/dL 3.4-4.8 [facility] Serum or plasma albumin/glob ulin mass ratioOrdered By: Yon Salas 06-05-2025 Albumin/Globulin [Mass ratio] 1.8 {ratio} 0.9-2.4 [facility] Serum or plasma alkaline bhavin sphatase measurementOrdered By: Yon Salas 06-05-2025 ALP [Catalytic activity/Vol] 92 U/L 35-104 [facility] Serum or plasma calcium hayden urement (mass/volume)Ordered By: Yon Josue on 06-05-2025 Calcium [Mass/Vol] 9.3 mg/dL 7.6-11.0 [facility] Serum or plasma urea nitroge n measurement (mass/volume)Ordered By: Yon aSlas on 06-05-2025 Urea nitrogen [Mass/Vol] 27 mg/dL High 4-19 [facility] Sodium levelOrdered By: Yon Salas on 06-05-2025 Sodium [Moles/Vol] 139 mmol/L 133-145 [facility] Squamous epithelial cells de tection in urine sediment by light microscopyOrdered By: Yon Salas on 06-05-2025 Epithelial cells.squamous LM Ql (Urine sed) 0 SEEN /hpf 03-31 [facility] TSH DL <= 0.005 mIU/L QnOrde red By: Yon Salas on 06-05-2025 TSH Qn 0.987 uIU/mL 0.300-4.200 [facility] Thyroid Stim Hormone (TSH)on 06-05-2025 TSH 0.987 uIU/mL Normal 0.300-4.200 [facility] Comment on above: Performed By: #### L 100.0100, L501.9520, M100.2200, L503.7505, L400.0001, L500.4050 ####[facility] [address] [place], [place], [address] Total proteinOrdered By: Yon Salas on 06-05-2025 Protein [Mass/Vol] 6.9 g/dL 5.9-8.4 [facility] Urinalysis, Completeon 06-05 BACTERIA 0 SEEN Normal None Seen [facility] Comment on above: Order Comment: Urine , Random Performed By: #### L 100.0100, L501.9520, M100.2200, L503.7505, L400.0001, L500.4050 ####[facility] [address] [place], [address] EPI,SQUAMOUS 0 SEEN Normal 5-10 [facility] Comment on above: Order Comment: Urine , Random Performed By: #### L 100.0100, L501.9520, M100.2200, L503.7505, L400.0001, L500.4050 ####[facility] [address] [place], [address] Mucus Ql (Urine sed) 0 SEEN Normal [facility] Comment on above: Order Comment: Urine , Random Performed By: #### L 100.0100, L501.9520, M100.2200, L503.7505, L400.0001, L500.4050 ####[facility] [address] [place], [address] RBC 0 SEEN Normal 0-5 [facility] Comment on above: Order Comment: Urine , Random Performed By: #### L 100.0100, L501.9520, M100.2200, L503.7505, L400.0001, L500.4050 ####[facility] [address] [place], [address] WBC 0 SEEN Normal 0-5 [facility] Comment on above: Order Comment: Urine , Random Performed By: #### L 100.0100, L501.9520, M100.2200, L503.7505, L400.0001, L500.4050 ####[facility] [address] [place], [address] Urine clarityOrdered By: Yon Salas on 06-05-2025 Clarity (U) Clear Clear [facility] Urine color determinationOrd ered By: Yon Salas on 06-05-2025 Color (U) Straw Yellow [facility] Urine cultureOrdered By: Yon Salas on 06-05-2025 Bacteria identified Cx Nom (U) Positive Abnormal [facility] Urine glucose detectionOrder ed By: Yon Salas on 06-05-2025 Glucose Ql (U) Normal mg/dl Normal [facility] Urine leukocyte esterase det ection by dipstickOrdered By: Yon Salas on 06-05-2025 Leukocyte esterase Test strip Ql (U) Negative Negative [facility] Urine pHOrdered By: Yon Josue on 06-05-2025 pH (U) 6.0 [pH] 5.0 - 8.0 [facility] Urine sediment bacteria coun t by microscopy (number/high power field)Ordered By: Yon Salas on 06-05-2025 Bacteria LM.HPF (Urine sed) [#/Area] 0 /[HPF] None Seen [facility] Urine specific gravity measu rementOrdered By: Yon Salas on 06-05-2025 Specific gravity (U) [Rel density] 1.015 1.002-1.030 [facility] Urine urobilinogen measureme ntOrdered By: Yon Salas on 06-05-2025 Urobilinogen Ql (U) Normal mg/dl Normal [facility] White blood cell (WBC) count Ordered By: Yon Salas on 06-05-2025 WBC (Bld) [#/Vol] 15.3 10*3/uL High 4.4-11.0 [facility] White blood cell countOrdere d By: Yon Salas on 06-05-2025 White blood cell count 0 SEEN /hpf 0-5 [facility] Anion gap in Serum or Plasma Ordered By: Yon Salas on 06-04-2025 Anion gap [Moles/Vol] 11 mmol/L 04-05 [facility] BUN/creatinine ratioOrdered By: Yon Salas on 06-04-2025 Urea nitrogen/Creatinine [Mass ratio] 17.2 mg/mg 09-10 [facility] Basic Metabolic Profile (BMP )on 06-04-2025 BUN/CRE 17.2 RATIO Normal 09-10 [facility] Comment on above: Performed By: #### L 500.2500 #### [facility] [address] [place], [place], [address] Calcium [Mass/Vol] 9.3 mg/dL Normal 7.6-11.0 [facility] Comment on above: Performed By: #### L 500.2500 #### [facility] [address] [place], [address] Chloride [Moles/Vol] 104 mmol/L Normal 98-108 [facility] Comment on above: Performed By: #### L 500.2500 #### [facility] [address] [place], [address] CO2 [Moles/Vol] 23.9 mmol/L Normal 21.0-32.0 [facility] Comment on above: Performed By: #### L 500.2500 #### [facility] [address] [place], [address] Creatinine [Mass/Vol] 1.30 mg/dL High 0.70-1.20 [facility] Comment on above: Performed By: #### L 500.2500 #### [facility] [address] [place], [address] GAP 11 Normal 5-15 [facility] Comment on above: Performed By: #### L 500.2500 #### [facility] [address] [place], [address] GFR/1.73 sq M.predicted among non-blacks MDRD (S/P/Bld) [Vol rate/Area] 42 mL/min/{1.73_m2} Low >60 [facility] Comment on above: Result Comment: mL/m in/1.73m2 CKD-EPI Creatinine Equation (2020) Performed By: #### L 500.2500 #### [facility] [address] [place], [address] Glucose [Mass/Vol] 73 mg/dL Normal 70-99 [facility] Comment on above: Performed By: #### L 500.2500 #### [facility] [address] [place], [address] Potassium [Moles/Vol] 4.3 mmol/L Normal 3.3-5.1 [facility] Comment on above: Performed By: #### L 500.2500 #### [facility] [address] [place], [place], [address] Sodium [Moles/Vol] 139 mmol/L Normal 133-145 [facility] Comment on above: Performed By: #### L 500.2500 #### [facility] [address] [place], [place], [address] Urea nitrogen [Mass/Vol] 22 mg/dL High 4-19 [facility] Comment on above: Performed By: #### L 500.2500 #### [facility] [address] [place], [place], [address] Carbon dioxide, total [Moles /volume] in Central venous bloodOrdered By: Yon Salas on 06-04-2025 CO2 [Moles/Vol] 23.9 mmol/L 21.0-32.0 [facility] Chloride assayOrdered By: Tera Salas on 06-04-2025 Chloride [Moles/Vol] 104 mmol/L 98-108 [facility] Glomerular filtration rate ( GFR) estimation/1.73 sq m using serum, plasma, or whole bOrdered By: Yon Salas on 06-04-2025 GFR/1.73 sq M.predicted among non-blacks MDRD (S/P/Bld) [Vol rate/Area] 42 mL/min/{1.73_m2} Low >60 [facility] Comment on above: mL/min/1.73m2 CKD-EP I Creatinine Equation (2020) Potassium measurement (mass/ volume)Ordered By: Yon Salas on 06-04-2025 Potassium (Unsp spec) [Mass/Vol] 4.3 mmol/L 3.3-5.1 [facility] Serum creatinine measurement (mass/volume)Ordered By: Yon Salas on 06-04-2025 Creatinine [Mass/Vol] 1.30 mg/dL High 0.70-1.20 [facility] Serum glucose measurement (m ass/volume)Ordered By: Yon Salas on 06-04-2025 Glucose [Mass/Vol] 73 mg/dL 70-99 [facility] Serum or plasma calcium hayden urement (mass/volume)Ordered By: Yon Salas on 07-14-2025 Calcium [Mass/Vol] 9.3 mg/dL 7.6-11.0 [facility] Serum or plasma urea nitroge n measurement (mass/volume)Ordered By: Yon Salas on 06-04-2025 Urea nitrogen [Mass/Vol] 22 mg/dL High 4-19 [facility] Sodium levelOrdered By: Yon Saals on 06-04-2025 Sodium [Moles/Vol] 139 mmol/L 133-145 [facility] Cerv Spine 2 or 3 Viewson Cerv Spine 2 or 3 Views [facility] [address] [place] [address] Cerv Spine 2 or 3 Views MR#: [id number] Acct: [id number] Name: DORA BRYANT Rep #: [id number] : 1945 F 80 From: Zhou Andersen MD PCP: Dr. Yon Salas MD Status: REG CLI Study: Cerv Spine 2 or 3 Views Date of Exam: 05/21/25 Exam# [id number] Ordering Dr: Yon Salas MD PROCEDURE: CERV [...] worst at C5-6 and C6-7. Reading Location: [facility] CC: Dr. Yon Salas MD Sawyer Cork Slabs: Signed Normal [facility] Free T3on 05-21-2025 Free T3 [Mass/Vol] 2.1 pg/mL Low 2.18-3.98 [facility] Comment on above: Performed By: #### L 506.0400, L501.28235 ####[facility] [address] [place], [address] Free M2Gewstkw By: Lei Sung on 05-21-2025 Free T3 [Mass/Vol] 2.1 pg/mL Low 2.18-3.98 [facility] L/S Spine Min 4 Viewson 04-24 L/S Spine Min 4 Views [facility] [address] [place] [address] L/S Spine Min 4 Views MR#: [id number] Acct: [id number] Name: DORA BRYANT Rep #: [id number] : 1945 F 80 From: Zhou Andersen MD PCP: Dr. Yon Salas MD Status: REG CLI Study: L/S Spine Min 4 Views Date of Exam: 05/21/25 Exam# [id number] Ordering Dr: Yon Salas MD PROCEDURE: L/S SPINE MIN 4 VIEWS 05/21/2025 REASON FOR EXAM: LOW BACK PAIN TECHNIQUE: L/S SPINE MIN 4 VIEWS COMPARISON: Lumbar spine radiographs on 05/11/2024 FINDINGS: There are 5 cff-gpw-nntxykv lumbar-type vertebral bodies. Vertebral body heights are maintained. There is a proximally 5 mm anterolisthesis of L5 on S1, unchanged. No pars defect identified on the oblique images. Tnwe-sg-nrihlqxq multilevel disc height loss and endplate osteophyte formation with facet arthrosis, worst at L3-4 through L5-S1. Aortic atherosclerosis. RAD/L/S Spine Min 4 Views IMPRESSION: Ette-ez-uogzxrpv degenerative changes of the lumbar spine, worst from L3-4 through L5-S1 and progressed since radiographs on 05/11/2024. Reading Location: [facility] CC: Dr. Yon Salas MD [place] Slabs: Signed Normal [facility] T4 Free Directon 05-21-2025 T4 FREE DIRECT 0.80 ng/dL Normal 0.76-1.46 [facility] Comment on above: Performed By: #### L 506.0400, L501.09833 ####[facility] [address] [place], [place], [address] T4 freeOrdered By: Lei Sung on 05-21-2025 Free T4 [Mass/Vol] 0.80 ng/dL 0.76-1.46 [facility] Thoracic Spine 3 Viewson Thoracic Spine 3 Views [facility] [address] [place], [place] [address] Thoracic Spine 3 Views MR#: [id number] Acct: [id number] Name: DORA BRYANT Rep #: [id number] : 1945 F 80 From: Zhou Andersen MD PCP: Dr. Yon Salas MD Status: REG CLI Study: Thoracic Spine 3 Views Date of Exam: 05/21/25 Exam# [id number] Ordering Dr: Yon Salas MD PROCEDURE: THORACIC SPINE 3 VIEWS 05/21/2025 REASON FOR EXAM: THORACIC BACK PAIN TECHNIQUE: THORACIC SPINE 3 VIEWS COMPARISON: Thoracic spine radiographs 05/11/2024 FINDINGS: Slight anterior wedging of several upper thoracic vertebral bodies, unchanged from 05/11/2024. Thoracic vertebral body heights are otherwise maintained. There is mild leftward curvature of the thoracic spine. Snks-jf-bhwvpvjo multilevel disc height loss with endplate osteophyte formation. The visualized lungs are clear. Aortic atherosclerosis. RAD/Thoracic Spine 3 Views IMPRESSION: 1. Mild to moderate multilevel degenerative changes of the thoracic spine. 2. Slight anterior wedging of several upper thoracic vertebral bodies is unchanged from 05/11/2024. Reading Location: [id number] CC: Dr. Yon Salas MD [place]yer [place] Slabs: Signed Normal [facility] Endocrinology Visit Reporton 05-18-2025 Endocrinology Visit Report [facility] [address] [place] [address]. [address] [place] [address] OFFICE VISIT Date of Service: 05/18/25 MR#: [id number] Acct: [id number] Name: DORA BRYANT Rep #: [id number] : 1945 Provider: Julisa Herron Age/Sex: 80/F [place] [facility] [place] Status: Signed Intake Vital Signs [...] FU Chief Complaint: Osteopororis, hypothyroid, pituitary tumor Project Coordinator Rn Required: No Accompanied by: Self Is patient [...] denosumab 60 mg/mL subcutaneous 60 mg subcut [id number] #1 mL 05/18/25 Rx syringe (Prolia) estradiol [...] Skin Skin: (more content not included)... Normal [facility] CBC W/Diff, Automatedon 02-2 0-2024 Absolute Lymph 1.92 X10 3/uL Normal 0.83-4.51 [facility] Comment on above: Performed By: #### L 100.0100, L500.4050, L500.4100, L501.9520, L506.1000 #### [facility] [address] [place], [address] Absolute Neut 9.3 X10 3/uL High 2.0-7.7 [facility] Comment on above: Performed By: #### L 100.0100, L500.4050, L500.4100, L501.9520, L506.1000 #### [facility] [address] [place], [address] Basophils/100 WBC (Bld) 0.6 % Normal 0-1 [facility] Comment on above: Performed By: #### L 100.0100, L500.4050, L500.4100, L501.9520, L506.1000 #### [facility] [address] [place], [address] Eosinophils/100 WBC (Bld) 2.6 % Normal 0-5 [facility] Comment on above: Performed By: #### L 100.0100, L500.4050, L500.4100, L501.9520, L506.1000 #### [facility] [address] [place], [address] Erythrocyte distribution width (RBC) [Ratio] 14.1 % Normal 11.6-14.6 [facility] Comment on above: Performed By: #### L 100.0100, L500.4050, L500.4100, L501.9520, L506.1000 #### [facility] [address] [place], [address] Hematocrit (Bld) [Volume fraction] 46.7 % Normal 37-47 [facility] Comment on above: Performed By: #### L 100.0100, L500.4050, L500.4100, L501.9520, L506.1000 #### [facility] [address] [place], [address] Hemoglobin (Bld) [Mass/Vol] 15.1 g/dL High 12.0-15.0 [facility] Comment on above: Performed By: #### L 100.0100, L500.4050, L500.4100, L501.9520, L506.1000 #### [facility] [address] [place], [address] IG% 0.500 Normal 0.0-0.9 [facility] Comment on above: Result Comment: IG% - Immature Granulocytes (promyelocytes, myelocytes and metamyelocytes) > 1% indicates that a LEFT SHIFT is Present. Performed By: #### L 100.0100, L500.4050, L500.4100, L501.9520, L506.1000 #### [facility] [address] [place], [address] Lymphocytes/100 WBC (Bld) 15.5 % Low 19-41 [facility] Comment on above: Performed By: #### L 100.0100, L500.4050, L500.4100, L501.9520, L506.1000 #### [facility] [address] [place], [address] MCH (RBC) [Entitic mass] 30.8 pg Normal 27.0-32.0 [facility] Comment on above: Performed By: #### L 100.0100, L500.4050, L500.4100, L501.9520, L506.1000 #### [facility] [address] [place], [address] MCHC (RBC) [Mass/Vol] 32.3 g/dL Normal 32-36 [facility] Comment on above: Performed By: #### L 100.0100, L500.4050, L500.4100, L501.9520, L506.1000 #### [facility] [address] [place], [address] MCV (RBC) [Entitic vol] 95.3 fL Normal 81-99 [facility] Comment on above: Performed By: #### L 100.0100, L500.4050, L500.4100, L501.9520, L506.1000 #### [facility] [address] [place], [address] Monocytes/100 WBC (Bld) 5.5 % Normal 0-10 [facility] Comment on above: Performed By: #### L 100.0100, L500.4050, L500.4100, L501.9520, L506.1000 #### [facility] [address] [place], [address] Neutrophils/100 WBC (Bld) 75.3 % High 47-70 [facility] Comment on above: Performed By: #### L 100.0100, L500.4050, L500.4100, L501.9520, L506.1000 #### [facility] [address] [place], [address] Nucleated RBC (Bld) [#/Vol] 0 10*3/uL Normal 0-5 [facility] Comment on above: Performed By: #### L 100.0100, L500.4050, L500.4100, L501.9520, L506.1000 #### [facility] [address] [place], [address] Platelet mean volume (Bld) [Entitic vol] 9.9 fL Normal 6.2-12.0 [facility] Comment on above: Performed By: #### L 100.0100, L500.4050, L500.4100, L501.9520, L506.1000 #### [facility] [address] [place], [address] Platelets (Bld) [#/Vol] 319 10*3/uL Normal 150-450 [facility] Comment on above: Performed By: #### L 100.0100, L500.4050, L500.4100, L501.9520, L506.1000 #### [facility] [address] [place], [address] RBC (Bld) [#/Vol] 4.90 10*6/uL Normal 4.2-5.4 [facility] Comment on above: Performed By: #### L 100.0100, L500.4050, L500.4100, L501.9520, L506.1000 #### [facility] [address] [place], [address] RDW SD 49.9 fl High 35.1-43.9 [facility] Comment on above: Performed By: #### L 100.0100, L500.4050, L500.4100, L501.9520, L506.1000 #### [facility] [address] [place], [address] WBC (Bld) [#/Vol] 12.4 10*3/uL High 4.4-11.0 [facility] Comment on above: Performed By: #### L 100.0100, L500.4050, L500.4100, L501.9520, L506.1000 #### [facility] [address] [place], [address] Comprehensive Metabolic Prof ilon 01-11-2025 Albumin [Mass/Vol] 3.7 g/dL Normal 3.2-5.0 [facility] Comment on above: Performed By: #### L 100.0100, L500.4050, L500.4100, L501.9520, L506.1000 #### [facility] [address] [place], [address] Albumin/Globulin [Mass ratio] 1.1 {ratio} Normal 0.9-2.4 [facility] Comment on above: Performed By: #### L 100.0100, L500.4050, L500.4100, L501.9520, L506.1000 #### [facility] [address] [place], [address] ALK P 92 U/L Normal 45-117 [facility] Comment on above: Performed By: #### L 100.0100, L500.4050, L500.4100, L501.9520, L506.1000 #### [facility] [address] [place], [address] ALT [Catalytic activity/Vol] 18 U/L Normal 13-56 [facility] Comment on above: Performed By: #### L 100.0100, L500.4050, L500.4100, L501.9520, L506.1000 #### [facility] [address] [place], [address] AST [Catalytic activity/Vol] 19 U/L Normal 15-37 [facility] Comment on above: Performed By: #### L 100.0100, L500.4050, L500.4100, L501.9520, L506.1000 #### [facility] [address] [place], [address] Bilirubin [Mass/Vol] 0.40 mg/dL Normal 0.20-1.00 [facility] Comment on above: Result Comment: For patients on eltrombopag therapy, use of Dimension [place] TBIL is not recommended. Performed By: #### L 100.0100, L500.4050, L500.4100, L501.9520, L506.1000 #### [facility] [address] [place], [address] BUN/CRE 13.1 RATIO Normal 10-20 [facility] Comment on above: Performed By: #### L 100.0100, L500.4050, L500.4100, L501.9520, L506.1000 #### [facility] [address] [place], [address] CA,Total 9.0 mg/dL Normal 8.5-10.1 [facility] Comment on above: Performed By: #### L 100.0100, L500.4050, L500.4100, L501.9520, L506.1000 #### [facility] [address] [place], [address] Chloride [Moles/Vol] 108 mmol/L High 98-107 [facility] Comment on above: Performed By: #### L 100.0100, L500.4050, L500.4100, L501.9520, L506.1000 #### [facility] [address] [place], [address] CO2 [Moles/Vol] 28.0 mmol/L Normal 21.0-32.0 [facility] Comment on above: Performed By: #### L 100.0100, L500.4050, L500.4100, L501.9520, L506.1000 #### [facility] [address] [place], [address] Creatinine [Mass/Vol] 1.07 mg/dL High 0.55-1.02 [facility] Comment on above: Result Comment: The validity of the calculated GFR GFRAA in patients over 70 years has not been determined. Clinical correlation is essential. Performed By: #### L 100.0100, L500.4050, L500.4100, L501.9520, L506.1000 #### [facility] [address] [place], [address] EST GFR - AA 64 mL/min Normal >60 [facility] Comment on above: Result Comment: Afri can Ukrainian GFR Calc Performed By: #### L 100.0100, L500.4050, L500.4100, L501.9520, L506.1000 #### [facility] [address] [place], [address] GAP 5 Normal 5-15 [facility] Comment on above: Performed By: #### L 100.0100, L500.4050, L500.4100, L501.9520, L506.1000 #### [facility] [address] [place], [address] GFR/1.73 sq M.predicted among non-blacks MDRD (S/P/Bld) [Vol rate/Area] 53 mL/min/{1.73_m2} Low >60 [facility] Comment on above: Result Comment: Non- GFR Calc Performed By: #### L 100.0100, L500.4050, L500.4100, L501.9520, L506.1000 #### [facility] [address] [place], [address] Globulin (S) [Mass/Vol] 3.3 g/dL Normal 2.2-4.2 [facility] Comment on above: Performed By: #### L 100.0100, L500.4050, L500.4100, L501.9520, L506.1000 #### [facility] [address] [place], [address] Glucose [Mass/Vol] 83 mg/dL Normal 74-106 [facility] Comment on above: Performed By: #### L 100.0100, L500.4050, L500.4100, L501.9520, L506.1000 #### [facility] [address] [place], [address] Potassium [Moles/Vol] 3.7 mmol/L Normal 3.5-5.1 [facility] Comment on above: Performed By: #### L 100.0100, L500.4050, L500.4100, L501.9520, L506.1000 #### [facility] [address] [place], [address] Sodium [Moles/Vol] 141 mmol/L Normal 136-145 [facility] Comment on above: Performed By: #### L 100.0100, L500.4050, L500.4100, L501.9520, L506.1000 #### [facility] [address] [place], [address] T PROT 7.0 g/dL Normal 6.4-8.2 [facility] Comment on above: Performed By: #### L 100.0100, L500.4050, L500.4100, L501.9520, L506.1000 #### [facility] [address] [place], [address] Urea nitrogen [Mass/Vol] 14 mg/dL Normal 7-18 [facility] Comment on above: Performed By: #### L 100.0100, L500.4050, L500.4100, L501.9520, L506.1000 #### [facility] [address] [place], [address] Hepatitis C Antibodyon 01-11 Hepatitis C AB Non-Reactive Normal Nonreactive [facility] Comment on above: Result Comment: Non Reactive: < 0.8 Equivocal: >/= 0.8 to < 1.0 Reactive: >/= 1.0 The [facility] requires that a reactive/equivocal HCV antibody result be sent out for confirmation. HCV Quant by PCR testing. Performed By: #### L 3890.6300 ####[facility] [address] [place], [address] Lipid Profileon 01-11-2025 Cholesterol [Mass/Vol] 212 mg/dL High 200 [facility] Comment on above: Result Comment: <200 mg/dL Desirable 200-240 mg/dL Borderline >240 mg/dL High Risk Performed By: #### L 100.0100, L500.4050, L500.4100, L501.9520, L506.1000 #### [facility] [address] [place], [address] Cholesterol in HDL [Mass/Vol] 59 mg/dL Normal [facility] Comment on above: Result Comment: The drugs N-Acetylcysteine and Metamizole may falsely depress this assay. Reference Range HDL <40 mg/dL Low HDL Cholesterol HDL >or= 60 mg/dL High HDL Cholesterol Performed By: #### L 100.0100, L500.4050, L500.4100, L501.9520, L506.1000 #### [facility] [address] [place], [address] Cholesterol in LDL [Mass/Vol] 123 mg/dL Normal 0-130 [facility] Comment on above: Performed By: #### L 100.0100, L500.4050, L500.4100, L501.9520, L506.1000 #### [facility] [address] [place], [address] Cholesterol in VLDL [Mass/Vol] 30 mg/dL Normal 5-40 [facility] Comment on above: Performed By: #### L 100.0100, L500.4050, L500.4100, L501.9520, L506.1000 #### [facility] [address] [place], [address] Triglyceride [Mass/Vol] 150 mg/dL Normal [facility] Comment on above: Result Comment: The drugs N-Acetylcysteine and Metamizole may falsely depress this assay. Serum Triglycerides Reference Interval Normal <150 mg/dL Borderline high 150 - 199 mg/dL High 200 - 499 mg/dL Very High > or = 500 mg/dL Performed By: #### L 100.0100, L500.4050, L500.4100, L501.9520, L506.1000 #### [facility] [address] [place], [place], [address] Thyroid Stim Hormone (TSH)on 01-11-2025 TSH 1.240 uIU/mL Normal 0.358-3.740 [facility] Comment on above: Performed By: #### L 100.0100, L500.4050, L500.4100, L501.9520, L506.1000 ####[facility] [address] [place], [place], [address] Vitamin D,25 Hydroxyon 01-11 Vitamin D 25-OH 54.4 ng/mL Normal [facility] Comment on above: Result Comment: Mary min D 25(OH) Status Range Deficiency <20 ng/mL (50nmol/L) Insufficiency 20 - 30 ng/mL (50 - 75 nmol/L) Sufficiency 30 - 100 ng/mL (75 - 250 nmol/L) Toxicity >100 ng/mL (>250 nmol/L) Performed By: #### L 100.0100, L500.4050, L500.4100, L501.9520, L506.1000 ####[facility] [address] [place], [place], [id number] CNPNon 12-12-2024 CNPN Telephone (FAMPWS) DORA BRYANT ([id number]) 1945 F Date Time Provider Department 12/12/24 ELAN GARCIA During your visit today, we recorded the following information about you: Julisa Beach RN 12/12/2024 4:41 PM Signed Pt reports she and her are both patient's of Dr. Garcia. They have [employer] PPO Plan. The insurance company told them Dr. Garcia opted out of [employer]. Pt asking Dr. Garcia is this true? Pt has appt scheduled in April 2025 (MR # [id number]) has appt scheduled in March 2025 plus he is scheduled to complete labs on 01-01-25 Please advise patient: [phone]. Elan Garcia MD 12/13/2024 6:57 AM Signed [facility] determines which insurances they accept. This question needs directed to [employer]. Julisa Beach RN 12/13/2024 8:06 AM Signed Phoned patient and given provider's message below with verbalized understanding. Patient agreeable to contact [employer]. 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 Normal [facility] Leon 11-20-2024 ARACELIN Telephone (FAMPWS) DORA BRYANT ([id number]) 1945 F Date Time Provider Department 11/20/24 [...] No adjustments need made unless it worsens. Julisa Beach, ADAM 11/20/2024 4:51 PM Signed Left vm for [...] Fully Assessed Reason for Visit: Medication Question [6338] Prescriptions as of 11/20/2024 - cyclobenzaprine (FLEXERIL) [...] [K21.9] 04/26/2007 Routine general medical examination at [facility]*04/22/2009 04/15/2016 Benign Neoplasm of Colon [D12.6] 04/22/2009 [...] unspecified thoracic vertebra*06/01/2024 Encounter Status:Closed by МАРИНА ARAZIA on 11/20/24 Normal [facility] Office Visit Reporton 2023 Office Visit Report [facility] [address] [place] [address] OFFICE VISIT Date of Service: 11/17/24 MR#: [id number] Acct: [id number] Patient: DORA BRYANT Rep #: [id number] : 1945 Provider: Julisa Herron Age/Sex: 79/F Location: [facility] Status: Signed Intake Vital Signs 05/18/24 14:53 [...] Procedure performed by: Lb Grant Lot number: [id number] 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: [employer] date: 03/21/27 Dose of injection: 1 mL Site of injection: Sub-Q Medication Given: Yes Is this a patient provided medication?: No Office Meds Prolia 60 mg/mL subcutaneous syringe Performing Provider: Lei Sung MD Performing Location: [facility] Administered by: Lb Grant RN on 11/17/24 08:49 Dose Route Admin Location Dispensed Lot Number Expiration Date [place] Man ufacturer 60 mg subcut Left Arm 1 mL [id number] 03/21/27 93879-406-53 [employer] Assessment and Plan Assessment and Plan [...] Lei Camacho Signature: Date (if applicable) CC: [facility] 10-27-2024 [facility] Office Visit (FAMPWS ) DORA BRYANT ([id number]) 1945 F Date Time Provider Department 10/27/24 [...] products Panhypopituitarism/HYPOTHYR OIDISM: Follows with 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 Last office visit in April. Has [...] workup negative. 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 Sung-endocrinology Pituitary adenoma ([facility]) repeat MRI in 2024 Retinal tear, right s/p laser Sprain of neck Urinary tract infection, site not specified ALLERGIES Meloxicam, Nitrofurantoin, [place] [Hydrocodone-Acetaminophen] , Penicillins, and Vioxx [Rofecoxib] MEDICATIONS [...] 4.1 Ca (more content not included)... Normal [facility]-26-2024 [facility] DORA BRYANT ([id number]) 1945 F Date Time Provider Department 09/26/24 [...] Contains abnormal data URINALYSIS, WITH MICROSCOPIC Order: [id number] Status: Final result Visible to patient: Yes [...] Negative Negative Negative Negative Negative Negative Specific [place], Ur 1.005 - 1.030 1.019 1.022 1.004 [...] Cholecalciferol, V (more content not included)... [facility] ([id number]) 1945 F Date Time Provider Department 09/26/24 ELAN GARCIA During your visit today, we recorded the following information about you: Марина Araiza LPN 09/26/2024 4:11 PM Signed Pt calls to check on culture results. Advised pt they are still in process. Pt reports she is now running a fever. MANOJ De Santiago Joy, APRN.ARACELI 09/27/2024 7:38 AM Addendum Culture resulted without [...] [K21.9] 04/26/2007 Routine general medical examination at [facility]*04/22/2009 04/15/2016 Benign Neoplasm of Colon [D12.6] 04/22/2009 [...] thoracic vertebra*06/01/2024 (more content not included)... Normal [facility] Bacteria Ur Culton Bacteria identified Cx Nom (U) ORGANISM ID: 1 10,000 -<50,000 CFU/ml Normal urogenital riana Normal [facility] Comment on above: Performed By: #### 6 30-4 ####[facility] LABCLIA [id number] [address] [facility] Office Visit (INTMWS ) DORA BRYANT ([id number]) 1945 F Date Time Provider Department 09/25/24 10:00 AM ADELINE BUTLER INTMWS During your visit today, we recorded the following information about you: Pulse Respiration Blood pressure Weight 90/minute 16/minute 130/78 60.3 kg Adeline Butler APRN.ROUNDING MACHINE OPERATOR 09/25/2024 12:48 PM Signed CC: Patient presents with: Recheck: Low back pain HPI Dora Julisa Bryant is a 79 year old female [...] treatment for retinal tear ALLERGIES Meloxicam, Nitrofurantoin, [place] [Hydrocodone-Acetaminophen] , Penicillins, and Vioxx [Rofecoxib] MEDICATIONS [...] Alcohol use: (more content not included)... Normal [facility] Comprehensive metabolic 2000 panelon 09-25-2024 Albumin [Mass/Vol] 4.1 g/dL Normal 3.9-4.9 [facility] Comment on above: Order Comment: Speci men Type: BLOOD SPECIMENOrdering Facility: [facility] Address: [address] [place] [address] Performed By: #### 2 4331-1, 69890-5 ####[facility] LABCLIA [id number] [place] [address] [place] ALP [Catalytic activity/Vol] 94 U/L Normal 34-123 [facility] Comment on above: Order Comment: Speci men Type: BLOOD SPECIMENOrdering Facility: [facility] Address: [address] [place] [address] Performed By: #### 2 4331-1, 62366-0 ####[facility] LABCLIA [id number] [place] [address] [place] ALT [Catalytic activity/Vol] 16 U/L Normal 7-38 [facility] Comment on above: Order Comment: Speci men Type: BLOOD SPECIMENOrdering Facility: [facility] Address: [address] [place] [address] Performed By: #### 2 4331-1, 58923-0 ####[facility] LABCLIA [id number] [place] [address] [place] Anion gap [Moles/Vol] 15 mmol/L Normal 8-15 [facility] Comment on above: Order Comment: Speci men Type: BLOOD SPECIMENOrdering Facility: [facility] Address: [address] [place] [address] Performed By: #### 2 4331-1, 20207-8 ####[facility] LABCLIA [id number] [place] [id number] [place] AST [Catalytic activity/Vol] 21 U/L Normal 13-35 [facility] Comment on above: Order Comment: Speci men Type: BLOOD SPECIMENOrdering Facility: [facility] Address: [address] [place] [address] Performed By: #### 2 4331-1, ####[facility] LABCLIA [id number] [address] [address] [place] Bilirubin [Mass/Vol] 0.7 mg/dL Normal 0.2-1.3 [facility] Comment on above: Order Comment: Speci men Type: BLOOD SPECIMENOrdering Facility: [facility] Address: [address] [place] [id number] Performed By: #### 2 4331-1, ####[facility] LABCLIA [id number] [place] [address] [place] Calcium [Mass/Vol] 9.4 mg/dL Normal 8.5-10.2 [facility] Comment on above: Order Comment: Speci men Type: BLOOD SPECIMENOrdering Facility: [facility] Address: [address] [place] [id number] Performed By: #### 2 4331-1, ####[facility] LABCLIA [id number] [place] [id number] [place] Chloride [Moles/Vol] 103 mmol/L Normal 98-107 [facility] Comment on above: Order Comment: Speci men Type: BLOOD SPECIMENOrdering Facility: [facility] Address: [address] [place] [id number] Performed By: #### 2 4331-1, ####[facility] LABCLIA [id number] [place] [id number] [place] CO2 [Moles/Vol] 23 mmol/L Normal 22-30 [facility] Comment on above: Order Comment: Speci men Type: BLOOD SPECIMENOrdering Facility: [facility] Address: [address] [place], [place] [address] Performed By: #### 2 4331-1, 45576-8 ####[facility] LABIA [id number] [place] [id number] [place] Creatinine [Mass/Vol] 1.00 mg/dL High 0.58-0.96 [facility] Comment on above: Order Comment: Speci men Type: BLOOD SPECIMENOrdering Facility: [facility] Address: [address] [address] [place] [address] Performed By: #### 2 4331-1, ####[facility] LABIA [id number] [place] [address] [place] Creatinine and Glomerular filtration rate.predicted panel (S/P/Bld) 58 mL/min/1.73m??? Low >=60 [facility] Comment on above: Order Comment: Denice blackwell Type: BLOOD SPECIMENOrdering Facility: [facility] Address: [address] [place] [address] Result Comment: Batool mated Glomerular Filtration Rate [...] actual GFR. Performed By: #### 2 4331-1, 75494-0 ####[facility] LABIA [id number] [place] [address] [place] Glucose [Mass/Vol] 96 mg/dL Normal 74-99 [facility] Comment on above: Order Comment: Pieroi men Type: BLOOD SPECIMENOrdering Facility: [facility] Address: [address] [place] [address] Result Comment: The [place] Diabetes Association (ADA) provides guidance for cutoff [...] Standards of Medical Care in Diabetes 2016, [place] [employer]. Diabetes Care. 2016.39(Suppl 1). Performed By: #### 2 4331-, ####[facility] LABCLIA [id number] [address] [address] [place] Potassium [Moles/Vol] 4.5 mmol/L Normal 3.7-5.1 [facility] Comment on above: Order Comment: Speci men Type: BLOOD SPECIMENOrdering Facility: [facility] Address: [address] [place] [address] Performed By: #### 2 43311-22, ####[facility] LABIA [id number] [address] [address] [place] Protein [Mass/Vol] 7.4 g/dL Normal 6.3-8.0 [facility] Comment on above: Order Comment: Speci men Type: BLOOD SPECIMENOrdering Facility: [facility] Address: [address] [place] [address] Performed By: #### 2 43311-22, ####[facility] LABCLIA [id number] [address] [address] [place] Sodium [Moles/Vol] 141 mmol/L Normal 136-144 [facility] Comment on above: Order Comment: Speci men Type: BLOOD SPECIMENOrdering Facility: [facility] Address: [address] [place] [address] Performed By: #### 2 4331-, 86217-6 ####[facility] LABCLIA [id number] [address] [address] [place] Urea nitrogen [Mass/Vol] 18 mg/dL Normal 7-21 [facility] Comment on above: Order Comment: Speci men Type: BLOOD SPECIMENOrdering Facility: [facility] Address: [address] [place] [address] Performed By: #### 2 4331-1, 14046-5 ####[facility] LABCLIA [id number] [place] [address] [place] Lipid 1996 panelon 4 Cholesterol [Mass/Vol] 178 mg/dL Normal <200 [facility] Comment on above: Order Comment: Speci men Type: BLOOD SPECIMENOrdering Facility: [facility] Address: [address] [place] [address] Result Comment: <200 mg/dL, Desirable 200-239 mg/dL, Borderline high >239 mg/dL, High Performed By: #### 2 4331-1, ####[facility] LABCLIA [id number] [address] [place] Cholesterol in HDL [Mass/Vol] 52 mg/dL Normal >39 [facility] Comment on above: Order Comment: Speci men Type: BLOOD SPECIMENOrdering Facility: [facility] Address: [address] [place] [address] Result Comment: 40-5 9 mg/dL, Acceptable >59 mg/dL, High: Negative risk factor for coronary heart disease <40 mg/dL, Low: Positive risk factor for coronary heart disease Performed By: #### 2 4331-1, ####[facility] LABCLIA [id number] [place] [address] [place] Cholesterol in LDL [Mass/Vol] 106 mg/dL High <100 [facility] Comment on above: Order Comment: Speci men Type: BLOOD SPECIMENOrdering Facility: [facility] Address: [address] [place] [address] Result Comment: <100 mg/dL, Optimal 100-129 mg/dL, Near optimal/above optimal 130-159 mg/dL, Borderline high 160-189 mg/dL, High >189 mg/dL, Very high Secondary prevention optimal LDL Cholesterol levels are recommended to be < 70 mg/dL Performed By: #### 2 4331-1, 58916-1 ####[facility] LABCLIA [id number] [address] [address] [place] Cholesterol in LDL/Cholesterol in HDL [Mass ratio] 2.04 {ratio} Normal <2.54 [facility] Comment on above: Order Comment: Speci men Type: BLOOD SPECIMENOrdering Facility: [facility] Address: [address] [place] [address] Result Comment: Refe yoly: 1. National Cholesterol Education Program ATP III Guideline At-A-Glance Quick Desk Reference: National Heart, Lung, and Blood [place]. National Institutes of Health. 2001: NIH Publication No. 01-3305. 2. An International Atherosclerosis Society position paper: global recommendations for the management of dyslipidemia: executive summary, Atherosclerosis. 2014: 232(2):410-413. Performed By: #### 2 4331-1, 38785-8 ####[facility] LABIA [id number] [place] [address] [place] Cholesterol in VLDL [Mass/Vol] 20 mg/dL Normal <30 [facility] Comment on above: Order Comment: Denice blackwell Type: BLOOD SPECIMENOrdering Facility: [facility] Address: [address] [place] [address] Performed By: #### 2 4331-1, 90541-7 ####[facility] LABIA [id number] [address] [address] [place] Cholesterol non HDL [Mass/Vol] 126 mg/dL Normal <130 [facility] Comment on above: Order Comment: Denice men Type: BLOOD SPECIMENOrdering Facility: [facility] Address: [address] [place] [address] Result Comment: <130 mg/dL, Optimal 130-159 mg/dL, Near optimal/above optimal 160-189 mg/dL, Borderline high 190-219 mg/dL, High >219 mg/dL, Very high Secondary prevention optimal non HDL Cholesterol levels are recommended to be <100 mg/dL Performed By: #### 2 4331-1, ####[facility] LABCLIA [id number] [place] [address] [place] Cholesterol.total/Cho lesterol in HDL [Mass ratio] 3.42 {ratio} Normal <5.10 [facility] Comment on above: Order Comment: Speci men Type: BLOOD SPECIMENOrdering Facility: [facility] Address: [address] [place] [address] Performed By: #### 2 4331-1, ####[facility] LABIA [id number] [place] [address] [place] FASTING TIME 12 hrs Normal [facility] Comment on above: Order Comment: Speci men Type: BLOOD SPECIMENOrdering Facility: [facility] Address: [address] [place] [address] Performed By: #### 2 4331-1, ####[facility] LABIA [id number] [place] [address] [place] Triglyceride [Mass/Vol] 102 mg/dL Normal <150 [facility] Comment on above: Order Comment: Speci men Type: BLOOD SPECIMENOrdering Facility: [facility] Address: [address] [place] [address] Result Comment: <150 mg/dL, Normal 150-199 mg/dL, Borderline high 200-499 mg/dL, High >499 mg/dL, Very high Performed By: #### 2 4331-1, 12662-0 ####[facility] LABCLIA [id number] [place] [address] [place] UA DIP, URINE (POC)on 2023 BILIRUBIN UA (POCT) Negative Negative [facility] CLARITY UA (POCT) Clear [facility] COLOR UA (POCT) Yellow [facility] GLUCOSE UA (POCT) Negative Negative mg/dL [facility] Hemoglobin Ql (U) Small Abnormal Negative [facility] Interpretation and review of laboratory results Abnormal [facility] KETONE UA (POCT) Negative Negative mg/dL [facility] LEUKOCYTES UA (POCT) Trace Abnormal Negative [facility] NITRITE UA (POCT) Negative Negative [facility] PH UA (POCT) 6.0 4.5 - 8.0 [facility] Protein Ql (U) Negative Negative mg/dL [facility] SPECIFIC GRAVITY UA (POCT) 1.015 1.005 - 1.030 [facility] UROBILINOGEN UA (POCT) 0.2 Normal E.U./dL [facility] Location:[address], [place], [place], [address] [place] [address] POINT OF CARE [facility] Urinalysis complete panel (U )on 09-25-2024 Bacteria LM.HPF (Urine sed) [#/Area] Negative Normal Negative [facility] Comment on above: Order Comment: Speci men Type: URINE SPECIMENOrdering Facility: [facility] Address: [address] [place] [address] Performed By: #### 2 4356-8 ####[facility] LABIA [id number] [place] [address] [place] Bilirubin Ql (U) Negative Normal Negative [facility] Comment on above: Order Comment: Speci men Type: URINE SPECIMENOrdering Facility: [facility] Address: [address] [place] [address] Performed By: #### 2 4356-8 ####[facility] LABCLIA [id number] [place] [address] [place] Clarity (Unsp spec) Clear Normal Clear [facility] Comment on above: Order Comment: Speci men Type: URINE SPECIMENOrdering Facility: [facility] Address: [address] [place] [address] Performed By: #### 2 4356-8 ####[facility] LABIA [id number] [place] [address] [place] Color (U) Yellow Normal Yellow [facility] Comment on above: Order Comment: Speci men Type: URINE SPECIMENOrdering Facility: [facility] Address: [facility] [place] [address] Performed By: #### 2 4356-8 ####[facility] LABCLIA [id number] [place] [address] [place] Epithelial cells LM.HPF (Urine sed) [#/Area] Few Normal [facility] Comment on above: Order Comment: Speci men Type: URINE SPECIMENOrdering Facility: [facility] Address: [address] [place] [address] Performed By: #### 2 4356-8 ####[facility] LABCLIA [id number] [place] [address] [place] Glucose Test strip (U) [Mass/Vol] Negative Normal Negative [facility] Comment on above: Order Comment: Speci men Type: URINE SPECIMENOrdering Facility: [facility] Address: [address] [place] [address] Performed By: #### 2 4356-8 ####[facility] LABCLIA [id number] [place] [address] [place] Hemoglobin Ql (U) Negative Normal Negative [facility] Comment on above: Order Comment: Speci men Type: URINE SPECIMENOrdering Facility: [facility] Address: [address] [place] [address] Performed By: #### 2 4356-8 ####[facility] LABCLIA [id number] [place] [address] [place] Hyaline casts (Urine sed) [#/Area] 0 /[LPF] Normal 0 /LPF [facility] Comment on above: Order Comment: Speci men Type: URINE SPECIMENOrdering Facility: [facility] Address: [address] [place] [address] Performed By: #### 2 4356-8 ####[facility] LABCLIA [id number] [place] [address] [place] Ketones Ql (U) Negative Normal Negative [facility] Comment on above: Order Comment: Speci men Type: URINE SPECIMENOrdering Facility: [facility] Address: [address] [place] [address] Performed By: #### 2 4356-8 ####[facility] LABCLIA [id number] [place] [address] [place] Leukocyte esterase Test strip Ql (U) 1+ Abnormal Negative [facility] Comment on above: Order Comment: Speci men Type: URINE SPECIMENOrdering Facility: [facility] Address: [address] [place] [address] Performed By: #### 2 4356-8 ####[facility] LABCLIA [id number] [place] [address] [place] Nitrite Ql (U) Negative Normal Negative [facility] Comment on above: Order Comment: Speci men Type: URINE SPECIMENOrdering Facility: [facility] Address: [address] [place] [address] Performed By: #### 2 4356-8 ####[facility] LABCLIA [id number] [place] [address] [place] pH (U) 6.0 [pH] Normal <8.5 [facility] Comment on above: Order Comment: Speci men Type: URINE SPECIMENOrdering Facility: [facility] Address: [address] [place] [address] Performed By: #### 2 4356-8 ####[facility] LABCLIA [id number] [place] [address] [place] Protein (U) [Mass/Vol] Negative Normal Negative [facility] Comment on above: Order Comment: Speci men Type: URINE SPECIMENOrdering Facility: [facility] Address: [address] [place] [address] Performed By: #### 2 4356-8 ####[facility] LABIA [id number] [place] [address] [place] RBC LM.HPF (Urine sed) [#/Area] 3-5 /HPF Abnormal 0-2 /HPF [facility] Comment on above: Order Comment: Speci men Type: URINE SPECIMENOrdering Facility: [facility] Address: [address] [place] [address] Performed By: #### 2 4356-8 ####[facility] LABIA [id number] [place] [address] [place] Specific gravity (U) [Rel density] 1.019 Normal 1.005-1.030 [facility] Comment on above: Order Comment: Speci men Type: URINE SPECIMENOrdering Facility: [facility] Address: [address] [place] [address] Performed By: #### 2 4356-8 ####[facility] [id number] [place] [address] [place] Urobilinogen Ql (U) 0.2 EU/dL Normal 0.2-1.0 EU/dL [facility] Comment on above: Order Comment: Speci men Type: URINE SPECIMENOrdering Facility: [facility] Address: [address] [place] [address] Performed By: #### 2 4356-8 ####[facility] LABIA [id number] [place] [address] [place] WBC LM.HPF (Urine sed) [#/Area] 0-5 /HPF Normal 0-5 /HPF [facility] Comment on above: Order Comment: Speci men Type: URINE SPECIMENOrdering Facility: [facility] Address: [address] [place] [address] Performed By: #### 2 4356-8 ####[facility] LABIA [id number] [address] [address] [place] CNOVon 09-22-2024 CNOV Office Visit (FAMPWS ) DORA BRYANT ([id number]) 1945 F Date Time Provider Department 09/22/24 10:00 AM ELAN GARCIAPWS During your visit today, we [...] Nitrofurantoin Other: See Comments Possible allergic reaction [employer] [place] [Hydrocodone-* Other: See Comments Possible allergic reaction [...] for nausea/vom (more content not included)... [facility] DORA BRYANT ([id number]) 1945 F Date Time Provider Department 08/03/24 SALLY SINGH [facility] During your visit today, we recorded the following information about you: Sally Singh APRN.[facility] 08/03/2024 12:37 PM Signed Please let patient [...] [K21.9] 04/26/2007 Routine general medical examination at [facility]*04/22/2009 04/15/2016 Benign Neoplasm of Colon [D12.6] 04/22/2009 [...] Status:Closed by CARLY CERVANTES on 08/03/24 Normal [facility] US DVT LOWER RTon 08-03-2024 US [...] and stored in a permanent archive. MQ: [email or web address] COMPARISON: None RESULT: RIGHT LOWER EXTREMITY PROXIMAL [...] imaged segments of the right lower extremity. [place] Slabs: JODY Transcribe Date/Time: Aug 03 2024 11:37A Dictated by : RUBÉN TORRES DO This examination was interpreted and the report reviewed and electronically signed by: RUBÉN TORRES DO on Aug 03 2024 11:37AM EST [id number] Normal [facility] Lower extremity vein - ri rip 08-03-2024 IMPRESSION: Negative study for proximal DVT in the right lower extremity. Negative study for calf DVT in the right lower extremity. Negative study for superficial thrombophlebitis in the imaged segments of the right lower extremity. [place] Slabs: JODY Transcribe Date/Time: Aug 03 2024 11:37A Dictated by : RUBÉN TORRES DO This examination was interpreted and the report reviewed and electronically signed by: RUBÉN TORRES DO on Aug 03 2024 11:37AM EST DIVISION OF RADIOLOGY * * *Final Report* * * DATE OF EXAM: Aug 03 2024 11:20AM [place] [id number] - DVT LOWER RT / PROCEDURE REASON: [...] to augmentation. DIVISION OF RADIOLOGY Provider, Rylee jackson [place] - 08/03/2024 * * *Final Report* * [...] imaged segments of the right lower extremity. [place] Slabs: JODY Transcribe Date/Time: Aug 03 2024 11:37A Dictated by : RUBÉN TORRES DO This examination was interpreted and the report reviewed and electronically signed by: RUBNÉ TORRES DO on Aug 03 2024 11:37AM EST [facility] Radiology Study observation (narrative) [facility] US Lower extremity vein - ri ghtOrdered By: Ccf Provider on 08-03-2024 [facility] CNOVon 07-31-2024 CNOV Office Visit (FAMPWS ) DORA BRYANT ([id number]) 1945 F Date Time Provider Department 07/31/24 [...] infection, site not specified ALLERGIES Meloxicam, Nitrofurantoin, [employer] [place] [Hydrocodone-Acetaminophen] , Penicillins, and Vioxx [Rofecoxib] MEDICATIONS [...] on 03/22/2025 (more content not included)... Normal [facility] CNTHERAPYon 06-23-2024 CNTHERAPY OT/PT/Speech Visit ( PTWS) DORA BRYANT ([id number]) 1945 F Date Time Provider Department 06/23/24 10:00 AM CATHERINE VALLES Date Time Provider Department Center 06/23/2024 10:00 AM [id number]-SCATHERINE VALLES [place] Reason for Visit: Physical Therapy [503] Primary Visit Diagnosis:Fall in home, initial encounter [W19.XXXA, Y92.009] Other Visit Diagnosis:Closed fracture of ramus of right pubis with routine healing, subsequent encounter [S32.041L] Allergies As of Date: 06/23/2024 Noted Allergy [...] Take 600 mg by mouth once daily. Patient Portal Representative: Addendum Therapy (PT/OT/Speech/Resp) ID: [id number] 06/23/2024 10:15 AM Author: CATHERINE VALLES Signed by CATHERINE VALLES PT on 06/23/2024 at 10:15 AM * * * This document replaces document [id number] * * * Document text: Program_ID:[id number] Access Code: [email or web address] URL: [email or web address] Date: 06-23-2024 Prepared By: Jg Velasco Program [...] - 4-5 sets - 1 reps Normal [facility] THERAPY NTon 06-23-2024 THERAPY NT HNO ID: [id number] Author: CATHERINE VALLES PT Service: ? Author Type: Physical Therapist Type: Therapy (PT/OT/Speech/Resp) Filed: 06/23/2024 10:15 Note Text: Program_ID:[id number] Access Code: [email or web address] URL: [email or web address] Date: 06-23-2024 Prepared By: Jg Velasco Program [...] - 4-5 sets - 1 reps Normal [facility] CNOVon 06-22-2024 CNOV Office Visit (FAMPWS ) DORA BRYANT ([id number]) 1945 F Date Time Provider Department 06/22/24 [...] of pituitary gland and craniopharyngeal duct (pouch) ([facility]) No date: Carpal tunnel syndrome No date: CKD (chronic kidney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 04-02-2023 Erythrocyte distribution width (RBC) [Entitic vol] 51.3 fL 35.1-43.9 [facility] Erythrocyte distribution width (RBC) [Ratio] 14.4 % 11.6-14.6 [facility] Immature granulocytes/100 WBC (Bld) 0.500 % 0.0-0.9 [facility] Comment on above: IG% - Immature Granu locytes (promyelocytes, myelocytes and metamyelocytes) > 1% indicates that a LEFT SHIFT is Present. MCH (RBC) [Entitic mass] 31.3 pg 27.0-32.0 [facility] Nucleated RBC/100 WBC (Bld) [Ratio] 0 % 0-5 [facility] MCHC Auto (RBC) [Mass/Vol]Or dered By: Dr. Yoder on 04-02-2023 MCHC (RBC) [Mass/Vol] 32.3 g/dL 32-36 [facility] No Panel InformationOrdered By: Dr. Yoder on 04-02-2023 Estimated Creatinine Clearance Calc 44.38 ml/min [facility] Estimated GFR (MDRD) Amer 69 mL/min >60 [facility] Comment on above: GFR Calc Estimated GFR (MDRD) Non-Af Amer 57 mL/min >60 [facility] Comment on above: Non- GFR Calc Platelets bldOrdered By: Dr. Yoder on 04-02-2023 Platelets (Bld) [#/Vol] 261 10*3/uL 150-450 [facility] Serum or plasma albumin hayden urement (mass/volume)Ordered By: Dr. Yoder on 04-02-2023 Albumin [Mass/Vol] 3.5 g/dL 3.2-5.0 [facility] Serum or plasma albumin/glob ulin mass ratioOrdered By: Dr. Yoder on 04-02-2023 Albumin/Globulin [Mass ratio] 1.2 {ratio} 0.9-2.4 [facility] Serum or plasma calcium hayden urement (mass/volume)Ordered By: Dr. Yoder on 04-02-2023 Calcium [Mass/Vol] 8.7 mg/dL 8.5-10.1 [facility] Serum or plasma cholesterol in HDL measurement (mass/volume)Ordered By: Dr. Yoder on 04-02-2023 Cholesterol in HDL [Mass/Vol] 61 mg/dL >40 [facility] Comment on above: The drugs N-Acetylcy steine and Metamizole may falsely depress this assay. Reference Range HDL <40 mg/dL Low HDL Cholesterol HDL >or= 60 mg/dL High HDL Cholesterol Serum or plasma cholesterol in VLDL measurement (mass/volume)Ordered By: Dr. Yoder on 04-02-2023 Cholesterol in VLDL [Mass/Vol] 20 mg/dL 5-40 [facility] Serum or plasma creatinine m easurement (mass/volume)Ordered By: Dr. Yoder on 04-02-2023 Creatinine [Mass/Vol] 1.00 mg/dL 0.55-1.02 [facility] Comment on above: The validity of the calculated GFR & GFRAA in patients over 70 years has not been determined. Clinical correlation is essential. Serum or plasma low density lipoprotein (LDL) cholesterol measurement (mass/volume)Ordered By: Dr. Yoder on 04-02-2023 Cholesterol in LDL [Mass/Vol] 102 mg/dL 0-130 [facility] Serum or plasma urea nitroge n measurement (mass/volume)Ordered By: Dr. Yoder on 04-02-2023 Urea nitrogen [Mass/Vol] 17 mg/dL 7-18 [facility] Thin prep Papanicolaou smear with manual screeningOrdered By: Dr. Yoder on 04-02-2023 Thin prep Papanicolaou smear with manual screening 24 U/L 15-37 [facility] Thin prep Papanicolaou smear with manual screening 6 5-15 [facility] Whole blood hemoglobin A1c/t otal hemoglobin ratio (mass fraction)Ordered By: Dr. Yoder on 04-02-2023 HbA1c (Bld) [Mass fraction] 5.6 % 3.8-5.6 [facility] Comment on above: Normal < 5.7 % Predi abetic 5.7 - 6.4 % Diabetic >or= 6.5 % Please note range changes. Absolute lymphocyte countOrd ered By: Violeta Harris on 04-01-2023 Lymphocytes Auto (Unsp spec) [#/Vol] 2.08 10*3/uL 0.83-4.51 [facility] Basophil percentageOrdered B y: Violeta Harris on 04-01-2023 Chloride [Moles/Vol] 109 mmol/L 98-107 [facility] Glucose [Mass/Vol] 91 mg/dL 74-106 [facility] Potassium [Moles/Vol] 4.0 mmol/L 3.5-5.1 [facility] Sodium [Moles/Vol] 143 mmol/L 136-145 [facility] Basophils/100 WBC (Bld) 0.8 % 0-1 [facility] Eosinophils/100 WBC (Bld) 0.8 % 0-5 [facility] Neutrophils (Bld) [#/Vol] 8.3 10*3/uL 2.0-7.7 [facility] Neutrophils/100 WBC (Bld) 73.0 % 47-70 [facility] WBC (Bld) [#/Vol] 11.4 10*3/uL 4.4-11.0 [facility] Blood erythrocytes count (nu mber/volume)Ordered By: Violeta Harris on 04-01-2023 RBC (Bld) [#/Vol] 4.73 10*6/uL 4.2-5.4 [facility] Blood hemoglobin measurement (mass/volume)Ordered By: Violeta Harris on 04-01-2023 Hemoglobin (Bld) [Mass/Vol] 14.9 g/dL 12.0-15.0 [facility] Blood lymphocytes/100 leukoc ytesOrdered By: Violeta Harris on 04-01-2023 Lymphocytes/100 WBC (Bld) 18.3 % 19-41 [facility] Blood monocytes/100 leukocyt esOrdered By: Violeta Harris on 04-01-2023 Monocytes/100 WBC (Bld) 6.7 % 0-10 [facility] Blood platelet adequacy dete ction by light microscopyOrdered By: Violeta Harris on 04-01-2023 Platelets LM Ql (Bld) ADEQUATE ADEQ [facility] Blood platelet mean volumeOr dered By: Violeta Harris on 04-01-2023 Platelet mean volume (Bld) [Entitic vol] 10.8 fL 6.2-12.0 [facility] Determination of erythrocyte mean corpuscular volume (MCV)Ordered By: Violeta Harris on 04-01-2023 MCV (RBC) [Entitic vol] 97.9 fL 81-99 [facility] Hematocrit Auto (Bld) [Volum e fraction]Ordered By: Violeta Harris on 04-01-2023 Hematocrit (Bld) [Volume fraction] 46.3 % 37-47 [facility] INR in Blood by Coagulation assayOrdered By: Violeta Harris on 04-01-2023 INR Coag (Bld) [Relative time] 1.0 {INR} [facility] Laboratory - Chemistry and C hemistry - challengeOrdered By: Violeta Harris on 04-01-2023 CO2 [Moles/Vol] 24.0 mmol/L 21.0-32.0 [facility] Urea nitrogen/Creatinine [Mass ratio] 17.5 mg/mg 10-20 [facility] Laboratory - CoagulationOrde red By: Violeta Harris on 04-01-2023 aPTT Coag (Bld) [Time] 27.0 s 24.1-36.2 [facility] PT Coag (PPP) [Time] 13.5 s 11.7-14.9 [facility] Laboratory - Hematology and Cell countsOrdered By: Violeta Harris on 04-01-2023 Anisocytosis Ql (Bld) RARE [facility] Erythrocyte distribution width (RBC) [Entitic vol] 52.8 fL 35.1-43.9 [facility] Erythrocyte distribution width (RBC) [Ratio] 14.6 % 11.6-14.6 [facility] Immature granulocytes/100 WBC (Bld) 0.400 % 0.0-0.9 [facility] Comment on above: IG% - Immature Granu locytes (promyelocytes, myelocytes and metamyelocytes) > 1% indicates that a LEFT SHIFT is Present. MCH (RBC) [Entitic mass] 31.5 pg 27.0-32.0 [facility] Nucleated RBC/100 WBC (Bld) [Ratio] 0 % 0-5 [facility] MCHC Auto (RBC) [Mass/Vol]Or dered By: Violeta Harris on 04-01-2023 MCHC (RBC) [Mass/Vol] 32.2 g/dL 32-36 [facility] Macrocytes detectionOrdered By: Violeta Harris on 04-01-2023 Macrocytes Ql (Bld) RARE [facility] No Panel InformationOrdered By: Violeta Harris on 04-01-2023 Estimated Creatinine Clearance Calc 44.55 ml/min [facility] Estimated GFR (MDRD) Amer 67 mL/min >60 [facility] Comment on above: GFR Calc Estimated GFR (MDRD) Non-Af Amer 55 mL/min >60 [facility] Comment on above: Non- GFR Calc Platelets bldOrdered By: aAron Harris on 04-01-2023 Platelets (Bld) [#/Vol] TNP [facility] Comment on above: Test not performedPl ease note: For this sample, a platelet estimate is provided rather than a platelet count due to platelet clumping. Other parameters associated with this sample are not affected by platelet clumping. If a more accurate platelet count is required, a redraw of the patient will be necessary.Previous reported result: 180 [id number] by: AVA on 04/01/23:1923 RBC morphologyOrdered By: Aidee Harris on 04-01-2023 RBC morphology finding Nom (Bld) N CHROM NORMAL NORM C&C [facility] Serum or plasma calcium hayden urement (mass/volume)Ordered By: Violeta Harris on 04-01-2023 Calcium [Mass/Vol] 8.8 mg/dL 8.5-10.1 [facility] Serum or plasma creatinine m easurement (mass/volume)Ordered By: Violeta Harris on 04-01-2023 Creatinine [Mass/Vol] 1.03 mg/dL 0.55-1.02 [facility] Comment on above: The validity of the calculated GFR & GFRAA in patients over 70 years has not been determined. Clinical correlation is essential. Serum or plasma urea nitroge n measurement (mass/volume)Ordered By: Violeta Harris on 04-01-2023 Urea nitrogen [Mass/Vol] 18 mg/dL 7-18 [facility] Thin prep Papanicolaou smear with manual screeningOrdered By: Violeta Harris on 04-01-2023 Thin prep Papanicolaou smear with manual screening 10 5-15 [facility] XR Chest PA and Lateralon IMPRESSION: No acute radiographic abnormality. Sawyer Cork Slabs: JODY Transcribe Date/Time: Oct 21 2022 3:15P Dictated by : WINIFRED SAMAYOA MD This examination was interpreted and the report reviewed and electronically signed by: WINIFRED SAMAYOA MD on Oct 21 2022 3:16PM [facility] DIVISION OF RADIOLOGY * * [...] soft tissues: Unremarkable. DIVISION OF RADIOLOGY Provider, [facility] * * *Final Report* [...] Unremarkable. IMPRESSION IMPRESSION: No acute radiographic abnormality. Sawyer Cork Slabs: JODY Transcribe Date/Time: Oct 21 2022 3:15P Dictated by : WINIFRED SAMAYOA MD This examination was interpreted and the report reviewed and electronically signed by: WINIFRED SAMAYOA MD on Oct 21 2022 3:16PM EST [facility] Radiology Study observation (narrative) [facility] XR Chest PA and LateralOrder ed By: [facility]cf Provider on 10-21-2022 [facility] No Panel Informationon 07-17 IMPRESSION: No acute bony finding. Sawyer Cork Slabs: JODY Transcribe Date/Time: Jul 17 2022 1:07P Dictated by : LYLA LOVE MD This examination was interpreted and the report reviewed and electronically signed by: LYLA LOVE MD on Jul 17 2022 1:19PM EST DIVISION OF RADIOLOGY Radiology Study observation (narrative) [facility] No Panel InformationOrdered By: Ccf Provider on 07-17-2022 [facility] XR Hand - right PA and [...] spaces otherwise maintained. DIVISION OF RADIOLOGY Provider, [facility] - 07/17/2022 * * *Final Report* [...] maintained. IMPRESSION IMPRESSION: No acute bony finding. Sawyer Cork Slabs: JODY Transcribe Date/Time: Jul 17 2022 1:07P Dictated by : LYLA LOVE MD This examination was interpreted and the report reviewed and electronically signed by: LYLA LOVE MD on Jul 17 2022 1:19PM [facility] XR Wrist - right PA and [...] spaces otherwise maintained. DIVISION OF RADIOLOGY Provider, [facility] - 07/17/2022 * * *Final Report* [...] maintained. IMPRESSION IMPRESSION: No acute bony finding. Sawyer Cork Slabs: JODY Transcribe Date/Time: Jul 17 2022 1:07P Dictated by : LYLA LOVE MD This examination was interpreted and the report reviewed and electronically signed by: LYLA LOVE MD on Jul 17 2022 1:19PM EST [facility] XR CHEST 2V FRONTAL/LATon [facility] XR Chest PA and Lateralon IMPRESSION: Stable chest. No acute cardiopulmonary process. Sawyer Cork Slabs: JODY Transcribe Date/Time: Jun 01 2022 11:45A Dictated [...] noted. [id number]_[id number] _[id number]_DIVIS ION OF RADIOLOGY Provider, [facility] - 06/01/2022 * * *Final Report* * [...] IMPRESSION: Stable chest. No acute cardiopulmonary process. Sawyer Cork Slabs: PSCB Transcribe Date/Time: Jun 01 2022 11:45A Dictated by : LEISA HAMPTON MD This examination was interpreted and the report reviewed and electronically signed by: LEISA HAMPTON MD on Jun 01 2022 11:47AM EST [facility] Radiology Study observation (narrative) [facility] XR Chest PA and LateralOrder ed By: Ccf Provider on 06-01-[address] [facility] [address] ABD/PEL WO IVCONon 2021 [facility] CBC W Auto Differential pane l (Bld)on 05-11-2022 Abs Immature Gran 0.07 k/uL <0.10 k/uL [facility] Basophils (Bld) [#/Vol] 0.06 10*3/uL <0.11 k/uL [facility] Basophils/100 WBC (Bld) 0.4 % [facility] Differential cell count method Nom (Bld) Auto [facility] Eosinophils (Bld) [#/Vol] 0.08 10*3/uL <0.46 k/uL [facility] Eosinophils/100 WBC (Bld) 0.6 % [facility] Erythrocyte distribution width (RBC) [Ratio] 14.2 % 11.5 - 15.0 % [facility] Hematocrit (Bld) [Volume fraction] 44.3 % 36.0 - 46.0 % [facility] Hemoglobin (Bld) [Mass/Vol] 14.4 g/dL 11.5 - 15.5 g/dL [facility] Immature Gran % 0.5 % [facility] Lymphocytes (Bld) [#/Vol] 2.51 10*3/uL 1.00 - 4.00 k/uL [facility] Lymphocytes/100 WBC (Bld) 18.7 % [facility] MCH (RBC) [Entitic mass] 31.2 pg 26.0 - 34.0 pg [facility] MCHC (RBC) [Mass/Vol] 32.5 g/dL 30.5 - 36.0 g/dL [facility] MCV (RBC) [Entitic vol] 96.1 fL 80.0 - 100.0 fL [facility] Monocytes (Bld) [#/Vol] 0.54 10*3/uL <0.87 k/uL [facility] Monocytes/100 WBC (Bld) 4.0 % [facility] Neutrophils (Bld) [#/Vol] 10.17 10*3/uL High 1.45 - 7.50 k/uL [facility] Neutrophils/100 WBC (Bld) 75.8 % [facility] Nucleated RBC (Bld) [#/Vol] 10*3/uL <0.01 k/uL [facility] Nucleated RBC/100 WBC (Bld) [Ratio] 0.0 /100 WBC [facility] Platelet mean volume (Bld) [Entitic vol] 10.6 fL 9.0 - 12.7 fL [facility] Platelets (Bld) [#/Vol] 288 10*3/uL 150 - 400 k/uL [facility] RBC (Bld) [#/Vol] 4.61 10*6/uL 3.90 - 5.2 0 m/uL [facility] WBC (Bld) [#/Vol] 13.43 10*3/uL High 3.70 - 11 .00 k/uL [facility] Absolute lymphocyte counton 04-30-2022 Lymphocytes Auto (Unsp spec) [#/Vol] 1.57 10*3/uL 0.83-4.51 [facility] Work Phone: Basophil percentageon 2021 Basophils/100 WBC (Bld) 0.4 % 0-1 [facility] Work Phone: Bilirubin [Mass/Vol] 0.40 mg/dL 0.20-1.00 [facility] Work Phone: Comment on above: For patients on eltr ombopag therapy, use of Dimension [place] TBIL is not recommended. Chloride [Moles/Vol] 110 mmol/L 98-107 [facility] Work Phone: Eosinophils/100 WBC (Bld) 0.7 % 0-5 [facility] Work Phone: Glucose [Mass/Vol] 84 mg/dL 74-106 [facility] Work Phone: Neutrophils (Bld) [#/Vol] 11.2 10*3/uL 2.0-7.7 [facility] Work Phone: Neutrophils/100 WBC (Bld) 81.1 % 47-70 [facility] Work Phone: Potassium [Moles/Vol] 4.2 mmol/L 3.5-5.1 [facility] Work Phone: Comment on above: Slight Hemolysis, Re sult may be falsely increased. Protein [Mass/Vol] 7.2 g/dL 6.4-8.2 [facility] Work Phone: Sodium [Moles/Vol] 140 mmol/L 136-145 [facility] Work Phone: WBC (Bld) [#/Vol] 13.8 10*3/uL 4.4-11.0 [facility] Work Phone: Blood erythrocytes count (nu mber/volume)on 04-30-2022 RBC (Bld) [#/Vol] 4.75 10*6/uL 4.2-5.4 [facility] Work Phone: Blood hemoglobin measurement (mass/volume)on 04-30-2022 Hemoglobin (Bld) [Mass/Vol] 14.9 g/dL 12.0-15.0 [facility] Work Phone: Blood lymphocytes/100 leukoc yteson 04-30-2022 Lymphocytes/100 WBC (Bld) 11.4 % 19-41 [facility] Work Phone: Blood monocytes/100 leukocyt eson 04-30-2022 Monocytes/100 WBC (Bld) 5.7 % 0-10 [facility] Work Phone: Blood platelet mean volumeon 04-30-2022 Platelet mean volume (Bld) [Entitic vol] 10.4 fL 6.2-12.0 [facility] Work Phone: Determination of erythrocyte mean corpuscular volume (MCV)on 04-30-2022 MCV (RBC) [Entitic vol] 95.2 fL 81-99 [facility] Work Phone: Hematocrit Auto (Bld) [Volum e fraction]on 04-30-2022 Hematocrit (Bld) [Volume fraction] 45.2 % 37-47 [facility] Work Phone: [phone] Laboratory - Chemistry and C hemistry - challengeon 04-30-2022 ALP [Catalytic activity/Vol] 104 U/L 45-117 [facility] Work Phone: ALT [Catalytic activity/Vol] 26 U/L 13-56 [facility] Work Phone: CO2 [Moles/Vol] 23.0 mmol/L 21.0-32.0 [facility] Work Phone: [phone] Free T4 [Mass/Vol] 0.85 ng/dL 0.76-1.46 [facility] Work Phone: Globulin (S) [Mass/Vol] 3.4 g/dL 2.2-4.2 [facility] Work Phone: [phone] Urea nitrogen/Creatinine [Mass ratio] 15.0 mg/mg 10-20 [facility] Work Phone: Laboratory - Hematology and Cell countson 04-30-2022 Erythrocyte distribution width (RBC) [Entitic vol] 48.4 fL 35.1-43.9 [facility] Work Phone: Erythrocyte distribution width (RBC) [Ratio] 13.7 % 11.6-14.6 [facility] Work Phone: Immature granulocytes/100 WBC (Bld) 0.700 % 0.0-0.9 [facility] Work Phone: Comment on above: IG% - Immature Granu locytes (promyelocytes, myelocytes and metamyelocytes) > 1% indicates that a LEFT SHIFT is Present. MCH (RBC) [Entitic mass] 31.4 pg 27.0-32.0 [facility] Work Phone: Nucleated RBC/100 WBC (Bld) [Ratio] 0 % 0-5 [facility] Work Phone: MCHC Auto (RBC) [Mass/Vol]on 04-30-2022 MCHC (RBC) [Mass/Vol] 33.0 g/dL 32-36 [facility] Work Phone: No Panel Informationon 04-30 Estimated GFR (MDRD) Amer 60 mL/min >60 [facility] Work Phone: Comment on above: GFR Calc Estimated GFR (MDRD) Non-Af Amer 50 mL/min >60 [facility] Work Phone: Comment on above: Non- GFR Calc Follicle Stimulating Hormone 1.1 mIU/mL [facility] Work Phone: Comment on above: NORMAL REFERENCE RAN GES FEMALE FOLLICULAR 2.3 - 12.6 mIU/mL MID-CYCLE PEAK 5.2 - 17.5 mIU/mL LUTEAL 1.7 - 12.9 mIU/mL POST-MENOPAUSAL ON MHT 5.9 - 72.8 mIU/mL NOT ON MHT 12.7 - 132.2 mlU/mL MALE 0.7 - 10.8 mIU/mL Free Triiodothyronine (T3) pg/dL 2.1 pg/mL 2.18-3.98 [facility] Work Phone: Luteinizing Hormone < 0.2 mIU/mL [facility] Work Phone: Comment on above: NORMAL REFERENCE RAN GES FEMALE FOLLICULAR 1.9 - 26.2 mIU/mL MID-CYCLE PEAK 22.8 - 76.1 mIU/mL LUTEAL 0.6 - 16.6 mIU/mL POST-MENOPAUSAL ON MHT 1.1 - 52.4 mIU/mL NOT ON MHT 8.6 - 61.8 mIU/mL MALE 1.2 - 10.6 mIU/mL Somatomedin-C 54 ng/mL 48-191 [facility] Work Phone: Comment on above: Performed at: - [address] [id number] Director: Crystal Keenan MD, Phone: [phone] Vitamin D 25-Hydroxy 92.8 ng/mL [facility] Work Phone: Comment on above: Vitamin D 25(OH) Sta tus Range Deficiency <20 ng/mL (50nmol/L) Insufficiency 20 - 30 ng/mL (50 - 75 nmol/L) Sufficiency 30 - 100 ng/mL (75 - 250 nmol/L) Toxicity >100 ng/mL (>250 nmol/L) Platelets bldon 04-30-2022 Platelets (Bld) [#/Vol] 296 10*3/uL 150-450 [facility] Work Phone: Serum or plasma albumin hayden urement (mass/volume)on 04-30-2022 Albumin [Mass/Vol] 3.8 g/dL 3.2-5.0 [facility] [facility] Work Phone: Serum or plasma albumin/glob ulin mass ratioon 04-30-2022 Albumin/Globulin [Mass ratio] 1.1 {ratio} 0.9-2.4 [facility] Work Phone: Serum or plasma calcium hayden urement (mass/volume)on 04-30-2022 Calcium [Mass/Vol] 8.9 mg/dL 8.5-10.1 [facility] Work Phone: Serum or plasma creatinine m easurement (mass/volume)on 04-30-2022 Creatinine [Mass/Vol] 1.13 mg/dL 0.55-1.02 [facility] Work Phone: Comment on above: The validity of the calculated GFR & GFRAA in patients over 70 years has not been determined. Clinical correlation is essential. Serum or plasma ferritin rosario surement (mass/volume)on 04-30-2022 Ferritin [Mass/Vol] 83 ng/mL 8-252 [facility] Work Phone: Serum or plasma urea nitroge n measurement (mass/volume)on 04-30-2022 Urea nitrogen [Mass/Vol] 17 mg/dL 7-18 [facility] Work Phone: Thin prep Papanicolaou smear with manual screeningon 04-30-2022 Thin prep Papanicolaou smear with manual screening 25 U/L 15-37 [facility] Work Phone: Comment on above: Slight Hemolysis, Re sult may be falsely increased. Thin prep Papanicolaou smear with manual screening 7 5-15 [facility] Work Phone: C-REACTIVE PROTEIN (CRP)on 0 03-21-2022 CRP [Mass/Vol] mg/L <0.9 mg/dL [facility] ESR Westergren method (Bld) [Velocity]on 03-20-2022 ESR (Bld) [Velocity] 12 mm/h 0 - 20 mm/hr [facility] No Panel Informationon 03-20 [facility] Radiology Study observation (narrative) [facility] XR HIP BILATERAL 5V PEL/AP/L AT EACH HIPon 03-20-2022 IMPRESSION: 1. No acute bony process. 2. Degenerative changes as detailed in report. Sawyer Cork Slabs: JODY Transcribe Date/Time: Mar 20 2022 3:56P [...] ZZZ_DO_NOT _USE_DIVIS ION OF RADIOLOGY [facility] * * *Final Report* [...] 2. Degenerative changes as detailed in report. Sawyer Cork Slabs: JODY Transcribe Date/Time: Mar 20 2022 3:56P Dictated by : LEISA HAMPTON MD This examination was interpreted and the report reviewed and electronically signed by: LEISA HAMPTON MD on Mar 20 2022 3:58PM [facility] XR Lumbar spine 3 Viewson IMPRESSION: Mild scoliotic curvature and stable degenerative changes. Stable anterolisthesis of L5 on S1 without associated pars interarticularis defect. Sawyer Cork Slabs: JODY Transcribe Date/Time: Mar 20 2022 3:52P Dictated by : LEISA HAMPTON MD This examination was interpreted and the report reviewed and electronically signed by: LEISA HAMPTON MD on Mar 20 2022 3:56PM EST AnjuZZ_DO_NOT _USE_DIVIS ION OF RADIOLOGY * * *Final [...] pill. ZZZ_DO_NOT _USE_DIVIS ION OF RADIOLOGY Provider, [facility] - 03/20/2022 * * *Final Report* [...] on S1 without associated pars interarticularis defect. Sawyer Cork Slabs: [facility] Transcribe Date/Time: Mar 20 2022 3:52P Dictated by : LEISA HAMPTON MD This examination was interpreted and the report reviewed and electronically signed by: LEISA HAMPTON MD on Mar 20 2022 3:56PM [facility] XR Foot - left AP and Latera l and obliqueon 05-30-2021 IMPRESSION: Postsurgical change. No complication. Sawyer Cork Slabs: [facility] Transcribe Date/Time: May 30 2021 11:27A Dictated by : MILES KEYES MD This examination was interpreted and the report reviewed and electronically signed by: MILES KEYES MD on May 30 2021 11:28AM [facility] DIVISION OF RADIOLOGY * * [...] tissue abnormality identified. DIVISION OF RADIOLOGY Provider, [facility] Farhan [facility] - 05/30/2021 * * *Final Report* * [...] identified. IMPRESSION IMPRESSION: Postsurgical change. No complication. Sawyer Cork Slabs: JODY Transcribe Date/Time: May 30 2021 11:27A Dictated by : MILES KEYES MD This examination was interpreted and the report reviewed and electronically signed by: MILES KEYES MD on May 30 2021 11:28AM EST [facility] Radiology Study observation (narrative) [facility] XR Foot - left AP and Latera l and obliqueOrdered By: Cc Provider on 05-30-2021 [facility] XR Chest PA and Lateralon IMPRESSION: Both diaphragmatic contours are mildly more lobular than previously but there are no findings elsewhere of significant pleural process and there are no acute radiographic abnormalities. Sawyer Cork Slabs: JODY Transcribe Date/Time: Dec 20 2020 3:45P Dictated by : WAGNER ERNST MD This examination was interpreted and the report reviewed and electronically signed by: WAGNER ERNST MD on Dec 20 2020 3:50PM [facility] DIVISION OF RADIOLOGY * * [...] Preexistent thoracic kyphoscoliosis. DIVISION OF RADIOLOGY Provider, [facility] - 12/20/2020 * * *Final Report* [...] and there are no acute radiographic abnormalities. Sawyer Cork Slabs: JODY Transcribe Date/Time: Dec 20 2020 3:45P Dictated by : WAGNER ERNST MD This examination was interpreted and the report reviewed and electronically signed by: WAGNER ERNST MD on Dec 20 2020 3:50PM EST [facility] Radiology Study observation (narrative) [facility] XR Chest PA and LateralOrder ed By: Ccf Provider [facility] 3 Viewson IMPRESSION: Lumbar s pine degenerative changes as described above. Sawyer Cork Slabs: JODY Transcribe Date/Time: Nov 19 2020 4:59P Dictated by : MARY REGAN MD This examination was interpreted and the report reviewed and electronically signed by: MARY REGAN MD on Nov 19 2020 5:01PM [facility] DIVISION OF RADIOLOGY * * [...] spine are presented. FINDINGS: There are five bck-nyk-dmoyrhl lumbar vertebrae. No acute fractures seen. There is grade 1 L5 5 on S1 anterolisthesis, similar to prior study. The disc spaces are well preserved. There is mild osteophyte formation. The bones are somewhat osteopenic. Questionable kissing spine. DIVISION OF RADIOLOGY Provider, [facility] - 11/19/2020 * * *Final Report* * [...] spine are presented. FINDINGS: There are five hly-bqx-nzkgfce lumbar vertebrae. No acute fractures seen. There is grade 1 L5 5 on S1 anterolisthesis, similar to prior study. The disc spaces are well preserved. There is mild osteophyte formation. The bones are somewhat osteopenic. Questionable kissing spine. IMPRESSION IMPRESSION: Lumbar spine degenerative changes as described above. Sawyer Cork Slabs: JODY Transcribe Date/Time: Nov 19 2020 4:59P Dictated by : MARY REGAN MD This examination was interpreted and the report reviewed and electronically signed by: MARY REGAN MD on Nov 19 2020 5:01PM EST [facility] Radiology Study observation (narrative) [facility] XR Lumbar spine 3 ViewsOrder ed By: Ccf Provider on 11-19-2020 [facility] ANES Abbey 10-28-2018 ANES POST HNO ID: [id number] thor: SULEIMAN Silvermanervice: AnesthesiologyAuthor Type: AnesthesiologistType: Anesthesia [...] 28, 2018 : 2:09 PM PAGER/CONTACT #: [facility] ANES PREOPon 10-28-2018 ANES PREOP HNO ID: [id number] thor: Mahin HernandezSertauruse: AnesthesiologyAuthor Type: AnesthesiologistType: Anesthesia PreOpFiled: 10/28/2018 10:39 [...] 42.7 09/14/2018Potassium 4.5 10/07/2018ANES DOS/PREOP NOTE: Vitals: [id number]: 118/75Pulse: 69Resp: 16Temp: 36.4 ?C (97.5 ?F)TempSrc: [...] RE: Mahin Hernandez MD PATIENT NAME: Dora Almeida: October 28, 2018 : 10:39 AM CSN: [id number] [facility] NURSING PROGon 10-28-2018 Protein mass conc HNO ID: [id number] thor: Margret (Rn) JOYCE Hartervice: NursingAuthor Type: Registered NurseType: Nursing Progress NoteFiled: 10/28/2018 3:04 PMNote Text:[id number] Received from or Drowsy No c/o [id number] Pt [id number] To phase II care Light diet to [id number] Iv removed Discharge instructions reviewed with pt and husbandAssisting pt to [id number] Up to br [id number] Discharged by wheelchair [facility] Protein mass conc HNO ID: [id number] thor: Dionicio (Rn) Sanford, JOYCEervice: NursingAuthor Type: Registered NurseType: Nursing Progress NoteFiled: 10/28/2018 11:47 AMNote Text:Dr. Hernandez at bedside for Right infraclavicular nerve block. RN atbedside, pt monitored throughout, BP 144/70 Pulse 67 Temp 36.4 ?C(97.5 ?F) (Temporal Artery) Resp 16 SpO2 100% . Pt toleratedprocedure without difficulty. [facility] OPERATIVE NOon 10-28-2018 OPERATIVE NO HNO ID: [id number] thor: Leonard Acostae: Orthopaedic SurgeryAuthor Type: PhysicianType: Operative ReportFiled: 10/28/2018 1:20 PMNote Text:OPERATIVE/PROCEDURE REPORT?LOG ID: [id number]/Procedure Date: 10/28/2018Incision/Procedure Start Time: 11:41 AMIncision Close/Procedure End Time: 1:00 PMSurgeon(s)/Proceduralist( s) and Aviation Technician Aircraft(s):Surgeon(s) and Role: * Leonard Justice - PrimaryNurse [...] place with the Tevdeksuture.? A number of huewue-fc-ijtpia from? the tendon were secured, andthe remaining [...] 28, 2018 : 1:20 PM PAGER/CONTACT #: [facility] PT EDon 10-28-2018 PT ED HNO ID: [id number] thor: Margret Rajan) JOYCE Hartervice: NursingAuthor Type: Registered NurseType: Patient EducationFiled: 10/28/2018 3:02 PMNote Text:2POST OP LEARNING RESPONSEINSTRUCTION PROVIDED TO: Patient and SpouseMETHOD OF INSTRUCTION: Verbal instructionPATIENT / FAMILY RESPONSE: Information received as demonstrated byinterest and questionsFOLLOW-UP PLAN: Patient instructed to call with any further issuesSUPPLEMENTAL MATERIAL: Post op discharge instructionsREFERRAL (RECOMMENDATION): NoneElectronically Signed By: Margret Hart RN In [facility] PT ED HNO ID: [id number] thor: JOYCE May Rnervice: NursingAuthor Type: Registered [...] Signed By: Dionicio Christina RN In [facility] NURSING PROGon 10-14-2018 Protein mass conc HNO ID: [id number] thor: Denisse (Rn) JOYCE Richmondervice: NursingAuthor Type: Registered NurseType: Nursing [...] Considerations:N/AChart Check:Kelly Richmond RNNovember 2017 3:02 PM [facility] HOSPon 10-03-2018 HOSP Patient:Crwo Bryant MMRN: Height:4' 11(1.499 m)Weight:133 lb (60.328 [...] 4.5 mmol/L 10/07/2018 5.1 3.7Progress Notes ([facility]):Monica Caraballo LPN 10/25/2018 11:02 AM SignedURINALYSIS [...] ]GLUCOSE: NEGATIVE, [low- negative, high- 2000]Lot #: [id number] Date: 04/21/2019 Quality check: Maurilio Caraballo LPN DELBERT Lazo 10/25/2018 3:38 PM SignedCatdaniel Julisa Bryant is a 73 year old female.Patient [...] HISTORYProcedure Laterality Date- COLONOSCOP W/ OR W/O BRS SPEC 06/13/2004 Colonoscopy- COLONOSCOP W/ OR W/O BRSH SPEC 08/28/09- COLONOSCOP W/ OR W/O BRSH SPEC 09/21/14 Colonoscopy- EGD W/O [facility] SPECIMEN W/BX 08/28/09- EGD W/O OR W/BRUSH/WASH [...] Breast Cancer SisterSOCIAL HISTORY:3Employer And Job Title: [employer] (retired)Marital Status: to Ab with 2 childrenTobacco [...] 3 mo follow up for new medication discussionCHICHO Costello, MT, PA-CProgress Notes ([facility]Sonam Sewell LPN 10/24/2018 1:32 PM SignedPatient presents for Prolia injection. Denies any problems at this time. Patientinstructed on any SE of medication, verbalized understanding and agreed toproceed with treatment. Tolerated injection well.Sonam Sewell LPN [facility] Vital Signs Date Time Vital Sign Value Performing Clinician Faci lity 05-18-2025 10:43-0400 Body height 149.[address] Pastor Garcia MD Work Phone: [facility] 05-18-2025 10:43-0400 Body mass index (BMI) [Ratio] 26.9 kg/m2 Dr. Pastor Garcia MD Work Phone: [facility] 05-18-2025 10:43-0400 Body weight 60.[address] Pastor Garcia MD Work Phone: [facility] 05-18-2025 10:43-0400 Diastolic blood pressure 85 mm[Hg] Dr. Pastor Garcia MD Work Phone: [facility] 05-18-2025 10:43-0400 Heart rate 74 /min Dr. Pastor Garcia MD Work Phone: [facility] 05-18-2025 10:43-0400 SaO2% (BldA) [Mass fraction] 99 % Dr. Pastor Garcia MD Work Phone: [facility] 05-18-2025 10:43-0400 Systolic blood pressure 139 mm[Hg] Dr. Pastor Garcia MD Work Phone: [facility] 10-27-2024 09:36-0500 Body mass index (BMI) [Ratio] 25.87 kg/m2 Edna Podlogar DIAGNOSTIC CARDIAC SONOGRAPHER.ROUNDING MACHINE OPERATOR Work Phone: [facility] 10-27-2024 09:36-0500 Body weight 58.1 kg Edna Podlogar DIAGNOSTIC CARDIAC SONOGRAPHER.ROUNDING MACHINE OPERATOR Work Phone: [facility] 10-27-2024 09:36-0500 Diastolic blood pressure 82 mm[Hg] Edna Podlogar DIAGNOSTIC CARDIAC SONOGRAPHER.ROUNDING MACHINE OPERATOR Work Phone: [facility] 10-27-2024 09:36-0500 Heart rate 87 /min Enda Podlogar DIAGNOSTIC CARDIAC SONOGRAPHER.ROUNDING MACHINE OPERATOR Work Phone: [facility] 10-27-2024 09:36-0500 Respiratory rate 18 /min Edna Podlogar DIAGNOSTIC CARDIAC SONOGRAPHER.ROUNDING MACHINE OPERATOR Work Phone: [facility] 10-27-2024 09:36-0500 SaO2% (BldA) [Mass fraction] 97 % Edna Podlogar DIAGNOSTIC CARDIAC SONOGRAPHER.ROUNDING MACHINE OPERATOR Work Phone: [facility] 10-27-2024 09:36-0500 Systolic blood pressure 134 mm[Hg] Edna Podlogar DIAGNOSTIC CARDIAC SONOGRAPHER.ROUNDING MACHINE OPERATOR Work Phone: [facility] 09-25-2024 09:54-0500 Body mass index (BMI) [Ratio] 26.86 kg/m2 Adeline Older DIAGNOSTIC CARDIAC SONOGRAPHER.ROUNDING MACHINE OPERATOR Work Phone: [facility] 09-25-2024 09:54-0500 Body weight 60.33 kg Adeline Older DIAGNOSTIC CARDIAC SONOGRAPHER.ROUNDING MACHINE OPERATOR Work Phone: [facility] 09-25-2024 09:54-0500 Diastolic blood pressure 78 mm[Hg] Adeline Older DIAGNOSTIC CARDIAC SONOGRAPHER.ROUNDING MACHINE OPERATOR Work Phone: [facility] 09-25-2024 09:54-0500 Heart rate 90 /min Adeline Older DIAGNOSTIC CARDIAC SONOGRAPHER.ROUNDING MACHINE OPERATOR Work Phone: [facility] 09-25-2024 09:54-0500 Respiratory rate 16 /min Adeline Older DIAGNOSTIC CARDIAC SONOGRAPHER.ROUNDING MACHINE OPERATOR Work Phone: [facility] 09-25-2024 09:54-0500 Systolic blood pressure 130 mm[Hg] Adeline Butler DIAGNOSTIC CARDIAC SONOGRAPHER.ROUNDING MACHINE OPERATOR Work Phone: [facility] 09-22-2024 10:00-0400 Body mass index (BMI) [Ratio] 26.66 kg/m2 Elan Garcia MD Work Phone: [facility] 09-22-2024 10:00-0400 Body weight 59.88 kg Elan Garcia MD Work Phone: [facility] 09-22-2024 10:00-0400 Diastolic blood pressure 70 mm[Hg] Elan Garcia MD Work Phone: [facility] 09-22-2024 10:00-0400 Heart rate 87 /min Elan Garcia MD Work Phone: [facility] 09-22-2024 10:00-0400 Respiratory rate 16 /min Elan Garcia MD Work Phone: [facility] 09-22-2024 10:00-0400 SaO2% (BldA) [Mass fraction] 99 % Elan Garcia MD Work Phone: [facility] 09-22-2024 10:00-0400 Systolic blood pressure 126 mm[Hg] Elan Garcia MD Work Phone: [facility] 07-31-2024 14:06-0400 Body mass index (BMI) [Ratio] 26.85 kg/m2 Edna Loco DIAGNOSTIC CARDIAC SONOGRAPHER.ROUNDING MACHINE OPERATOR Work Phone: [facility] 07-31-2024 14:06-0400 Body weight 60.3 kg Edna Loco DIAGNOSTIC CARDIAC SONOGRAPHER.ROUNDING MACHINE OPERATOR Work Phone: [facility] 07-31-2024 14:06-0400 Diastolic blood pressure 84 mm[Hg] Edna Podlogar DIAGNOSTIC CARDIAC SONOGRAPHER.ROUNDING MACHINE OPERATOR Work Phone: [facility] 07-31-2024 14:06-0400 Heart rate 83 /min Edna Podlogar DIAGNOSTIC CARDIAC SONOGRAPHER.ROUNDING MACHINE OPERATOR Work Phone: [facility] 07-31-2024 14:06-0400 Respiratory rate 18 /min Edna Podlogar DIAGNOSTIC CARDIAC SONOGRAPHER.ROUNDING MACHINE OPERATOR Work Phone: [facility] 07-31-2024 14:06-0400 SaO2% (BldA) [Mass fraction] 98 % Edna Podlogar DIAGNOSTIC CARDIAC SONOGRAPHER.ROUNDING MACHINE OPERATOR Work Phone: [facility] 07-31-2024 14:06-0400 Systolic blood pressure 136 mm[Hg] Edna Podlogar DIAGNOSTIC CARDIAC SONOGRAPHER.ROUNDING MACHINE OPERATOR Work Phone: [facility] 06-22-2024 09:56-0400 Body mass index (BMI) [Ratio] 26.54 kg/m2 Elan Garcia MD Work Phone: [facility] 06-22-2024 09:56-0400 Body weight 59.6 kg Elan Garcia MD Work Phone: [facility] 06-22-2024 09:56-0400 Diastolic blood pressure 62 mm[Hg] Elan Garcia MD Work Phone: [facility] 06-22-2024 09:56-0400 Heart rate 78 /min Elan Garcia MD Work Phone: [facility] 06-22-2024 09:56-0400 Respiratory rate 16 /min Elan Garcia MD Work Phone: [facility] 06-22-2024 09:56-0400 SaO2% (BldA) [Mass fraction] 97 % Elan Garcia MD Work Phone: [facility] 06-22-2024 09:56-0400 Systolic blood pressure 108 mm[Hg] Elan Garcia MD Work Phone: [facility] 06-01-2024 09:00-0400 Diastolic blood pressure 78 mm[Hg] Ghislainecindi Jordonnnjonatan PT, DPT [facility] 06-01-2024 09:00-0400 Heart rate 70 /min Jg Ruvalcabannjonatan PT, DPT [facility] 06-01-2024 09:00-0400 SaO2% (BldA) [Mass fraction] 100 % McJuncindi Ruvalcabannjonatan PT, DPT [facility] 06-01-2024 09:00-0400 Systolic blood pressure 122 mm[Hg] DarrellJuncindi Artisoennjonatan PT, DPT [facility] 05-13-2024 08:17-0400 Body mass index (BMI) [Ratio] 26.7 kg/m2 Elan Garcia MD Work Phone: [facility] 05-13-2024 08:17-0400 Body temperature 98.4 [degF] Elan Garcia MD Work Phone: [facility] 05-13-2024 08:17-0400 Body weight 59.97 kg Elan Garcia MD Work Phone: [facility] 05-13-2024 08:17-0400 Diastolic blood pressure 76 mm[Hg] Ealn Garcia MD Work Phone: [facility] 05-13-2024 08:17-0400 Heart rate 80 /min Elan Garcia MD Work Phone: [facility] 05-13-2024 08:17-0400 Respiratory rate 16 /min Elan Garcia MD Work Phone: [facility] 05-13-2024 08:17-0400 SaO2% (BldA) [Mass fraction] 97 % Elan Garcia MD Work Phone: [facility] 05-13-2024 08:17-0400 Systolic blood pressure 120 mm[Hg] Elan Garcia MD Work Phone: [facility] 03-22-2024 10:09-0400 Body mass index (BMI) [Ratio] 26.58 kg/m2 Edna Loco APRN.CNP Work Phone: [facility] 03-22-2024 10:09-0400 Body weight 59.69 kg Edna Podlogar DIAGNOSTIC CARDIAC SONOGRAPHER.ROUNDING MACHINE OPERATOR Work Phone: [facility] 03-22-2024 10:09-0400 Diastolic blood pressure 74 mm[Hg] Edna Podlogar DIAGNOSTIC CARDIAC SONOGRAPHER.ROUNDING MACHINE OPERATOR Work Phone: [facility] 03-22-2024 10:09-0400 Heart rate 76 /min Edna Podlogar DIAGNOSTIC CARDIAC SONOGRAPHER.ROUNDING MACHINE OPERATOR Work Phone: [facility] 03-22-2024 10:09-0400 Respiratory rate 18 /min Edna Podlogar DIAGNOSTIC CARDIAC SONOGRAPHER.ROUNDING MACHINE OPERATOR Work Phone: [facility] 03-22-2024 10:09-0400 SaO2% (BldA) [Mass fraction] 97 % Edna Podlogar DIAGNOSTIC CARDIAC SONOGRAPHER.ROUNDING MACHINE OPERATOR Work Phone: [facility] 03-22-2024 10:09-0400 Systolic blood pressure 126 mm[Hg] Edna Podlogar DIAGNOSTIC CARDIAC SONOGRAPHER.ROUNDING MACHINE OPERATOR Work Phone: [facility] 02-28-2024 11:14-0400 Body temperature 98.4 [degF] Edna Podlogar DIAGNOSTIC CARDIAC SONOGRAPHER.ROUNDING MACHINE OPERATOR Work Phone: [facility] 02-28-2024 11:14-0400 Body weight 59.42 kg Edna Podlogar DIAGNOSTIC CARDIAC SONOGRAPHER.ROUNDING MACHINE OPERATOR Work Phone: [facility] 02-28-2024 11:14-0400 Diastolic blood pressure 80 mm[Hg] Edna Podlogar DIAGNOSTIC CARDIAC SONOGRAPHER.ROUNDING MACHINE OPERATOR Work Phone: [facility] 02-28-2024 11:14-0400 Respiratory rate 16 /min Edna Podlogar DIAGNOSTIC CARDIAC SONOGRAPHER.ROUNDING MACHINE OPERATOR Work Phone: [facility] 02-28-2024 11:14-0400 SaO2% (BldA) [Mass fraction] 99 % Edna Podlogar DIAGNOSTIC CARDIAC SONOGRAPHER.ROUNDING MACHINE OPERATOR Work Phone: [facility] 02-28-2024 11:14-0400 Systolic blood pressure 122 mm[Hg] Edna Podlogar DIAGNOSTIC CARDIAC SONOGRAPHER.ROUNDING MACHINE OPERATOR Work Phone: [facility] 02-02-2024 10:13-0400 Body temperature 98.4 [degF] Edna Podlogar DIAGNOSTIC CARDIAC SONOGRAPHER.ROUNDING MACHINE OPERATOR Work Phone: [facility] 02-02-2024 10:13-0400 Body weight 60.78 kg Edna Podlogar DIAGNOSTIC CARDIAC SONOGRAPHER.ROUNDING MACHINE OPERATOR Work Phone: [facility] 02-02-2024 10:13-0400 Diastolic blood pressure 84 mm[Hg] Edna Podlogar DIAGNOSTIC CARDIAC SONOGRAPHER.ROUNDING MACHINE OPERATOR Work Phone: [facility] 02-02-2024 10:13-0400 Heart rate 71 /min Edna Podlogar DIAGNOSTIC CARDIAC SONOGRAPHER.ROUNDING MACHINE OPERATOR Work Phone: [facility] 02-02-2024 10:13-0400 Respiratory rate 16 /min Edna Podlogar DIAGNOSTIC CARDIAC SONOGRAPHER.ROUNDING MACHINE OPERATOR Work Phone: [facility] 02-02-2024 10:13-0400 SaO2% (BldA) [Mass fraction] 98 % Edna Podlogar DIAGNOSTIC CARDIAC SONOGRAPHER.ROUNDING MACHINE OPERATOR Work Phone: [facility] 02-02-2024 10:13-0400 Systolic blood pressure 126 mm[Hg] Edna Podlogar DIAGNOSTIC CARDIAC SONOGRAPHER.ROUNDING MACHINE OPERATOR Work Phone: [facility] 01-29-2024 10:05-0500 Body height 149.9 cm Elan Garcia MD Work Phone: [facility] 01-29-2024 10:05-0500 Body weight 60.33 kg Elan Garcia MD Work Phone: [facility] 01-29-2024 10:05-0500 Diastolic blood pressure 64 mm[Hg] Elan Garcia MD Work Phone: [facility] 01-29-2024 10:05-0500 Heart rate 75 /min Elan Garcia MD Work Phone: [facility] 01-29-2024 10:05-0500 Respiratory rate 12 /min Elan Garcia MD Work Phone: [facility] 01-29-2024 10:05-0500 SaO2% (BldA) [Mass fraction] 99 % Elan Garcia MD Work Phone: [facility] 01-29-2024 10:05-0500 Systolic blood pressure 128 mm[Hg] Elan Garcia MD Work Phone: [facility] 01-23-2024 02:22-0500 Body temperature 98.1 [degF] Dr. Pastor Garcia Work Phone: [facility] 01-23-2024 02:22-0500 Diastolic blood pressure 79 mm[Hg] Dr. Pastor Garcia Work Phone: [facility] 01-23-2024 02:22-0500 Heart rate 81 /min Dr. Pastor Garcia Work Phone: [phone] [place] [address] 01-23-2024 02:22-0500 Respiratory rate 18 /min Dr. Pastor Garcia Work Phone: [facility] 01-23-2024 02:22-0500 SaO2% (BldA) [Mass fraction] 99 % Dr. Pastor Garcia Work Phone: [facility] 01-23-2024 02:22-0500 Systolic blood pressure 166 mm[Hg] Dr. Pastor Garcia Work Phone: [facility] 01-22-2024 22:47-0500 Body height 149.[address] Pastor Garcia Work Phone: [facility] 01-22-2024 22:47-0500 Body mass index (BMI) [Ratio] 27 kg/m2 Dr. Pastor Garcia Work Phone: [facility] 01-22-2024 22:47-0500 Body weight 60.[address] Pastor Garcia Work Phone: [facility] 01-05-2024 13:54-0500 Body height 149.9 cm Elan Garcia MD Work Phone: [facility] 01-05-2024 13:54-0500 Body weight 60.33 kg Elan Garcia MD Work Phone: [facility] 01-05-2024 13:54-0500 Diastolic blood pressure 74 mm[Hg] Elan Garcia MD Work Phone: [facility] 01-05-2024 13:54-0500 Heart rate 80 /min Elan Garcia MD Work Phone: [facility] 01-05-2024 13:54-0500 Respiratory rate 16 /min Elan Garcia MD Work Phone: [facility] 01-05-2024 13:54-0500 Systolic blood pressure 128 mm[Hg] Elan Garcia MD Work Phone: [facility] 11-19-2023 10:32-0500 Body height 149.22 cm [facility] 11-19-2023 10:32-0500 Body mass index (BMI) [Ratio] 26.9 kg/m2 [facility] 11-19-2023 10:32-0500 Body temperature 98 [degF] [facility] 11-19-2023 10:32-0500 Body weight 59.87 kg [facility] 11-19-2023 10:32-0500 Diastolic blood pressure 80 mm[Hg] [facility] 11-19-2023 10:32-0500 Heart rate 80 /min [facility] 11-19-2023 10:32-0500 Respiratory rate 16 /min [facility] 11-19-2023 10:32-0500 SaO2% (BldA) [Mass fraction] 99 % [facility] 11-19-2023 10:32-0500 Systolic blood pressure 151 mm[Hg] [facility] 08-03-2023 09:21-0400 Body temperature 98.1 [degF] Edna Loco DIAGNOSTIC CARDIAC SONOGRAPHER.ROUNDING MACHINE OPERATOR Work Phone: [facility] 08-03-2023 09:21-0400 Body weight 61.05 kg Edna Loco APRN.ROUNDING MACHINE OPERATOR Work Phone: [facility] 08-03-2023 09:21-0400 Diastolic blood pressure 76 mm[Hg] Edan Podlogar DIAGNOSTIC CARDIAC SONOGRAPHER.ROUNDING MACHINE OPERATOR Work Phone: [facility] 08-03-2023 09:21-0400 Heart rate 89 /min Edna Podlogar DIAGNOSTIC CARDIAC SONOGRAPHER.ROUNDING MACHINE OPERATOR Work Phone: [facility] 08-03-2023 09:21-0400 Respiratory rate 16 /min Edna Podlogar DIAGNOSTIC CARDIAC SONOGRAPHER.ROUNDING MACHINE OPERATOR Work Phone: [facility] 08-03-2023 09:21-0400 SaO2% (BldA) [Mass fraction] 95 % Edna Podlogar DIAGNOSTIC CARDIAC SONOGRAPHER.ROUNDING MACHINE OPERATOR Work Phone: [facility] 08-03-2023 09:21-0400 Systolic blood pressure 128 mm[Hg] Edna Podlogar DIAGNOSTIC CARDIAC SONOGRAPHER.ROUNDING MACHINE OPERATOR Work Phone: [facility] 05-21-2023 10:26-0400 Body height 149.[address] Pastor Garcia Work Phone: [facility] 05-21-2023 10:26-0400 Body mass index (BMI) [Ratio] 26.2 kg/m2 Dr. Pastor Garcia Work Phone: [facility] 05-21-2023 10:26-0400 Body temperature 96.6 [degF] Dr. Pastor Garcia Work Phone: [facility] 05-21-2023 10:26-0400 Body weight 58.[address] Pastor Garcia Work Phone: [facility] 05-21-2023 10:26-0400 Diastolic blood pressure 72 mm[Hg] Dr. Pastor Garcia Work Phone: [facility] 05-21-2023 10:26-0400 Heart rate 79 /min Dr. Pastor Garcia Work Phone: [facility] 05-21-2023 10:26-0400 Respiratory rate 16 /min Dr. Pastor Garcia Work Phone: [facility] 05-21-2023 10:26-0400 SaO2% (BldA) [Mass fraction] 99 % Dr. Pastor Garcia Work Phone: 4(036)818-545379 [place] [address] 05-21-2023 10:26-0400 Systolic blood pressure 131 mm[Hg] Dr. Pastor Garcia Work Phone: 2(709)424-702286 [place] [address] 05-20-2023 15:34-0400 Body mass index (BMI) [Ratio] 27.1 kg/m2 Dr. Pastor Garcia Work Phone: 0(618)010-299386 [place] [address] 05-20-2023 15:34-0400 Body temperature 98.2 [degF] Dr. Pastor Garcia Work Phone: 9(495)501-276186 [place] [address] 05-20-2023 15:34-0400 Body weight 60.[address] Pastor Garcia Work Phone: 9(809)775-486086 [place] [address] 05-20-2023 15:34-0400 Diastolic blood pressure 80 mm[Hg] Dr. Pastor Garcia Work Phone: 0(924)288-631786 [place] [address] 05-20-2023 15:34-0400 Heart rate 90 /min Dr. Pastor Garcia Work Phone: 9(108)264-103886 [place] [address] 05-20-2023 15:34-0400 Respiratory rate 16 /min Dr. Pastor Garcia Work Phone: 9(659)394-511079 [place] [address] 05-20-2023 15:34-0400 SaO2% (BldA) [Mass fraction] 97 % Dr. Pastor Garcia Work Phone: 6(674)345-971286 [place] [address] 05-20-2023 15:34-0400 Systolic blood pressure 156 mm[Hg] Dr. Pastor Garcia Work Phone: 0(490)195-211886 [place] [address] 05-07-2023 13:56-0400 Body height 149.3 cm Brian Ashton MD Work Phone: [facility] 05-07-2023 13:56-0400 Body temperature 98.1 [degF] Brian Ashtno MD Work Phone: [facility] 05-07-2023 13:56-0400 Body weight 59.65 kg Brian Ashton MD Work Phone: [facility] 05-07-2023 13:56-0400 Diastolic blood pressure 82 mm[Hg] Brian Ashton MD Work Phone: [facility] 05-07-2023 13:56-0400 Heart rate 69 /min Brian Ashton MD Work Phone: [facility] 05-07-2023 13:56-0400 Respiratory rate 18 /min Brian Ashton MD Work Phone: [facility] 05-07-2023 13:56-0400 SaO2% (BldA) [Mass fraction] 100 % Brian Ashton MD Work Phone: [facility] 05-07-2023 13:56-0400 Systolic blood pressure 157 mm[Hg] Brian Ashton MD Work Phone: [facility] 04-02-2023 15:11-0400 Body mass index (BMI) [Ratio] 25.7 kg/m2 Dr. Pastor Garcia Work Phone: [facility] 04-02-2023 14:22-0400 Body temperature 98.6 [degF] Dr. Pastor Garcia Work Phone: [facility] 04-02-2023 14:22-0400 Diastolic blood pressure 75 mm[Hg] Dr. Pastor Garcia Work Phone: [facility] 04-02-2023 14:22-0400 Heart rate 65 /min Dr. Pastor Garcia Work Phone: [facility] 04-02-2023 14:22-0400 Respiratory rate 16 /min Dr. Pastor Garcia Work Phone: [facility] 04-02-2023 14:22-0400 SaO2% (BldA) [Mass fraction] 99 % Dr. Pastor Garcia Work Phone: 6(627)097-898986 [place] [address] 04-02-2023 14:22-0400 Systolic blood pressure 120 mm[Hg] Dr. Pastor Garcia Work Phone: 3(265)689-768686 [place] [address] 04-01-2023 22:20-0400 Body height 149.[address] Pastor Garcia Work Phone: 6(913)242-858286 [place] [address] 04-01-2023 22:20-0400 Body weight 57.[address] Pastor Garcia Work Phone: 0(061)173-279486 [place] [address] 04-01-2023 21:06-0400 Body temperature 98 [degF] Dr. Pastor Garcia Work Phone: 3(409)038-422586 [place] [address] 04-01-2023 21:06-0400 Diastolic blood pressure 77 mm[Hg] Dr. Pastor Garcia Work Phone: 2(369)459-857286 [place] [address] 04-01-2023 21:06-0400 Heart rate 81 /min Dr. Pastor Garcia Work Phone: 0(667)610-519286 [place] [address] 04-01-2023 21:06-0400 Respiratory rate 16 /min Dr. Pastor Garcia Work Phone: 4(563)901-917486 [place] [address] 04-01-2023 21:06-0400 SaO2% (BldA) [Mass fraction] 97 % Dr. Pastor Garcia Work Phone: 7(294)738-647386 [place] [address] 04-01-2023 21:06-0400 Systolic blood pressure 163 mm[Hg] Dr. Pastor Garcia Work Phone: 3(063)336-998186 [place] [address] 04-01-2023 17:51-0400 Body height 150.[address] Pastor Garcia Work Phone: 7(914)710-853786 [place] [address] 04-01-2023 17:51-0400 Body mass index (BMI) [Ratio] 26.5 kg/m2 Dr. Pastor Garcia Work Phone: 4(426)295-631786 [place] [address] 04-01-2023 17:51-0400 Body weight 59.[address] Pastor Garcia Work Phone: [facility] 03-08-2023 [id number] Body weight 58.24 kg Edna Podlogar DIAGNOSTIC CARDIAC SONOGRAPHER.ROUNDING MACHINE OPERATOR Work Phone: [facility] 03-08-2023 10:23-0400 Diastolic blood pressure 76 mm[Hg] Edna Podlogar DIAGNOSTIC CARDIAC SONOGRAPHER.ROUNDING MACHINE OPERATOR Work Phone: [facility] 03-08-2023 10:23-0400 Heart rate 82 /min Edna Podlogar DIAGNOSTIC CARDIAC SONOGRAPHER.ROUNDING MACHINE OPERATOR Work Phone: [facility] 03-08-2023 10:23-0400 Respiratory rate 18 /min Edna Podlogar DIAGNOSTIC CARDIAC SONOGRAPHER.ROUNDING MACHINE OPERATOR Work Phone: [facility] 03-08-2023 10:23-0400 SaO2% (BldA) [Mass fraction] 98 % Edna Podlogar DIAGNOSTIC CARDIAC SONOGRAPHER.ROUNDING MACHINE OPERATOR Work Phone: [facility] 03-08-2023 10:23-0400 Systolic blood pressure 102 mm[Hg] Edna Podlogar DIAGNOSTIC CARDIAC SONOGRAPHER.ROUNDING MACHINE OPERATOR Work Phone: [facility] 11-10-2022 13:27-0500 Body height 149.86 cm [facility] Work Phone: 11-10-2022 13:27-0500 Body mass index (BMI) [Ratio] 26.2 kg/m2 [facility] Work Phone: 11-10-2022 13:27-0500 Body temperature 97.2 [degF] [facility] Work Phone: 11-10-2022 13:27-0500 Body weight 58.96 kg [facility] Work Phone: 11-10-2022 13:27-0500 Diastolic blood pressure 71 mm[Hg] [facility] Work Phone: 11-10-2022 13:27-0500 Heart rate 86 /min [facility] Work Phone: 11-10-2022 13:27-0500 Respiratory rate 14 /min [facility] Work Phone: 11-10-2022 13:27-0500 Systolic blood pressure 129 mm[Hg] [facility] Work Phone: 10-21-2022 09:09-0500 Body temperature 98.49 [degF] Edna Podlogar DIAGNOSTIC CARDIAC SONOGRAPHER.ROUNDING MACHINE OPERATOR Work Phone: [facility] 10-21-2022 09:09-0500 Body weight 59.78 kg Edna Podlogar DIAGNOSTIC CARDIAC SONOGRAPHER.ROUNDING MACHINE OPERATOR Work Phone: [facility] 10-21-2022 09:09-0500 Diastolic blood pressure 78 mm[Hg] Edna Podlogar DIAGNOSTIC CARDIAC SONOGRAPHER.ROUNDING MACHINE OPERATOR Work Phone: [facility] 10-21-2022 09:09-0500 Heart rate 88 /min Edna Podlogar DIAGNOSTIC CARDIAC SONOGRAPHER.ROUNDING MACHINE OPERATOR Work Phone: [facility] 10-21-2022 09:09-0500 Respiratory rate 16 /min Edna Podlogar DIAGNOSTIC CARDIAC SONOGRAPHER.ROUNDING MACHINE OPERATOR Work Phone: [facility] 10-21-2022 09:09-0500 SaO2% (BldA) [Mass fraction] 99 % Edna Podlogar DIAGNOSTIC CARDIAC SONOGRAPHER.ROUNDING MACHINE OPERATOR Work Phone: [facility] 10-21-2022 09:09-0500 Systolic blood pressure 132 mm[Hg] Edna Podlogar DIAGNOSTIC CARDIAC SONOGRAPHER.ROUNDING MACHINE OPERATOR Work Phone: [facility] 07-17-2022 08:03-0400 Body weight 60.51 kg Elan Garcia MD Work Phone: [facility] 07-17-2022 08:03-0400 Diastolic blood pressure 66 mm[Hg] Elan Garcia MD Work Phone: [facility] 07-17-2022 08:03-0400 Heart rate 82 /min Elan Garcia MD Work Phone: [facility] 07-17-2022 08:03-0400 Respiratory rate 16 /min Elan Garcia MD Work Phone: [facility] 07-17-2022 08:03-0400 SaO2% (BldA) [Mass fraction] 99 % Elan Garcia MD Work Phone: [facility] 07-17-2022 08:03-0400 Systolic blood pressure 114 mm[Hg] Elan Garcia MD Work Phone: [facility] 06-22-2022 11:30-0400 Body temperature 97.5 [degF] Edna Podlogar DIAGNOSTIC CARDIAC SONOGRAPHER.ROUNDING MACHINE OPERATOR Work Phone: [facility] 06-22-2022 11:30-0400 Body weight 60.24 kg Edna Podlogar DIAGNOSTIC CARDIAC SONOGRAPHER.ROUNDING MACHINE OPERATOR Work Phone: [facility] 06-22-2022 11:30-0400 Diastolic blood pressure 74 mm[Hg] Dena Podlogar DIAGNOSTIC CARDIAC SONOGRAPHER.ROUNDING MACHINE OPERATOR Work Phone: [facility] 06-22-2022 11:30-0400 Heart rate 71 /min Edna Podlogar DIAGNOSTIC CARDIAC SONOGRAPHER.ROUNDING MACHINE OPERATOR Work Phone: [facility] 06-22-2022 11:30-0400 Respiratory rate 18 /min Edna Podlogar DIAGNOSTIC CARDIAC SONOGRAPHER.ROUNDING MACHINE OPERATOR Work Phone: [facility] 06-22-2022 11:30-0400 SaO2% (BldA) [Mass fraction] 98 % Edna Podlogar DIAGNOSTIC CARDIAC SONOGRAPHER.ROUNDING MACHINE OPERATOR Work Phone: [facility] 06-22-2022 11:30-0400 Systolic blood pressure 122 mm[Hg] Edna Podlogar DIAGNOSTIC CARDIAC SONOGRAPHER.ROUNDING MACHINE OPERATOR Work Phone: [facility] 06-15-2022 13:39-0400 Body height 147.3 cm Mitul Sánchez DO Work Phone: [facility] 06-15-2022 13:39-0400 Body temperature 98.49 [degF] Mitul Newelli DO Work Phone: [facility] 06-15-2022 13:39-0400 Body weight 60.33 kg Mitul Masci DO Work Phone: [facility] 06-15-2022 13:39-0400 Diastolic blood pressure 77 mm[Hg] Mitul Newelli DO Work Phone: [facility] 06-15-2022 13:39-0400 Heart rate 85 /min Mitul Osirisi DO Work Phone: [facility] 06-15-2022 13:39-0400 Systolic blood pressure 131 mm[Hg] Mitul Newelli DO Work Phone: [facility] 06-03-2022 09:27-0400 Body temperature 97.81 [degF] Elan Garcia MD Work Phone: [facility] 06-03-2022 09:27-0400 Body weight 59.42 kg Elan Garcia MD Work Phone: [facility] 06-03-2022 09:27-0400 Diastolic blood pressure 76 mm[Hg] Elan Garcia MD Work Phone: [facility] 06-03-2022 09:27-0400 Heart rate 64 /min Elan Garcia MD Work Phone: [facility] 06-03-2022 09:27-0400 Respiratory rate 16 /min Elan Garcia MD Work Phone: [facility] 06-03-2022 09:27-0400 Systolic blood pressure 112 mm[Hg] Elan Garcia MD Work Phone: [facility] 05-12-2022 13:14-0400 Body height 149.[address] Kasey Bashir Work Phone: [facility] Work Phone: 05-12-2022 13:14-0400 Body mass index (BMI) [Ratio] 26.6 kg/m2 Dr. Kasey Bashir Work Phone: [facility] Work Phone: 05-12-2022 13:14-0400 Body temperature 96.7 [degF] Dr. Kasey Bashir Work Phone: [facility] Work Phone: 05-12-2022 13:14-0400 Body weight 59.[address] Kasey Bashir Work Phone: [facility] Work Phone: 05-12-2022 13:14-0400 Diastolic blood pressure 70 mm[Hg] Dr. Kasey Bashir Work Phone: [facility] Work Phone: 05-12-2022 13:14-0400 Heart rate 83 /min Dr. Kasey Bashir Work Phone: [facility] Work Phone: 05-12-2022 13:14-0400 Respiratory rate 12 /min Dr. Kasey Bashir Work Phone: [facility] Work Phone: 05-12-2022 13:14-0400 SaO2% (BldA) [Mass fraction] 98 % Dr. Kasey Bashir Work Phone: [facility] Work Phone: 05-12-2022 13:14-0400 Systolic blood pressure 124 mm[Hg] Dr. Kasey Bashir Work Phone: [facility] Work Phone: 05-11-2022 [id number] Body temperature 98.01 [degF] Elan Garcia MD Work Phone: [facility] 05-11-2022 [id number] Body weight 59.97 kg Elan Garcia MD Work Phone: [facility] 05-11-2022 14:11-0400 Diastolic blood pressure 80 mm[Hg] Elan Garcia MD Work Phone: [facility] 05-11-2022 14:11-0400 Heart rate 76 /min Elan Garcia MD Work Phone: [facility] 05-11-2022 14:11-0400 Respiratory rate 16 /min Elan Garcia MD Work Phone: [facility] 05-11-2022 14:11-0400 SaO2% (BldA) [Mass fraction] 99 % Elan Garcia MD Work Phone: [facility] 05-11-2022 14:11-0400 Systolic blood pressure 122 mm[Hg] Elan Garcia MD Work Phone: [facility] 04-30-2022 09:33-0400 Body temperature 97.4 [degF] Dr. Kasey Bashir Work Phone: [facility] Work Phone: 04-30-2022 09:33-0400 Diastolic blood pressure 76 mm[Hg] Dr. Kasey Bashir Work Phone: [facility] Work Phone: 04-30-2022 09:33-0400 Heart rate 77 /min Dr. Kasey Bashir Work Phone: [facility] Work Phone: 04-30-2022 09:33-0400 Respiratory rate 14 /min Dr. Kasey Bashir Work Phone: [facility] Work Phone: 04-30-2022 09:33-0400 SaO2% (BldA) [Mass fraction] 98 % Dr. Kasey Bashir Work Phone: [facility] Work Phone: 04-30-2022 09:33-0400 Systolic blood pressure 128 mm[Hg] Dr. Kasey Bashir Work Phone: [facility] Work Phone: 04-13-2022 13:44-0400 Body temperature 98.01 [degF] Edna Loco APRN.CNP Work Phone: [facility] 04-13-2022 13:44-0400 Body weight 60.96 kg Edna Podlogar DIAGNOSTIC CARDIAC SONOGRAPHER.ROUNDING MACHINE OPERATOR Work Phone: [facility] 04-13-2022 13:44-0400 Diastolic blood pressure 62 mm[Hg] Edna Podlogar DIAGNOSTIC CARDIAC SONOGRAPHER.ROUNDING MACHINE OPERATOR Work Phone: [facility] 04-13-2022 13:44-0400 Heart rate 85 /min Edna Podlogar DIAGNOSTIC CARDIAC SONOGRAPHER.ROUNDING MACHINE OPERATOR Work Phone: [facility] 04-13-2022 13:44-0400 Respiratory rate 18 /min Edna Podlogar DIAGNOSTIC CARDIAC SONOGRAPHER.ROUNDING MACHINE OPERATOR Work Phone: [facility] 04-13-2022 13:44-0400 SaO2% (BldA) [Mass fraction] 100 % Edna Podlogar DIAGNOSTIC CARDIAC SONOGRAPHER.ROUNDING MACHINE OPERATOR Work Phone: [facility] 04-13-2022 13:44-0400 Systolic blood pressure 108 mm[Hg] Edna Podlogar DIAGNOSTIC CARDIAC SONOGRAPHER.ROUNDING MACHINE OPERATOR Work Phone: [facility] 03-20-2022 14:09-0400 Body weight 61.33 kg Elan Garcia MD Work Phone: [facility] 03-20-2022 14:09-0400 Diastolic blood pressure 68 mm[Hg] lEan Garcia MD Work Phone: [facility] 03-20-2022 14:09-0400 Heart rate 85 /min Elan Garcia MD Work Phone: [facility] 03-20-2022 14:09-0400 Respiratory rate 16 /min Elan Garcia MD Work Phone: [facility] 03-20-2022 14:09-0400 SaO2% (BldA) [Mass fraction] 97 % Elan Garcia MD Work Phone: [facility] 03-20-2022 14:09-0400 Systolic blood pressure 128 mm[Hg] Elan Garcia MD Work Phone: [facility] 04-24-2021 09:30-0400 Body mass index (BMI) [Ratio] 25.6 kg/m2 Dr. Kasey Bashir Work Phone: [facility] Work Phone: Encounters Encounter Date Encounter Type Care Provider Facility Start: 07-10-2025 End: 07-10-[address] Pastor Garcia MD Work Phone: -Laboratory Phy Office 3rd Flr Start: 07-10-2025 End: 07-10-[address] Yon Salas MD -Laboratory Phy Office 3rd Flr Start: 07-10-2025 End: 07-10-2025 ambulatory [facility] Facility:[facility] Start: 06-19-2025 End: 06-19-[address] Pastor Garcia MD Work Phone: -MRI - [facility] Start: 06-19-2025 End: 06-19-[address] Lei Sung MD -MRI - [facility] Work Phone: Start: 06-19-2025 End: 06-19-2025 ambulatory Lei Sung Facility:[facility] Start: 06-08-2025 End: 06-08-[address] Pastor Garcia MD Work Phone: -Ultrasound [facility] Start: 06-08-2025 End: 06-08-[address] Yon Salas MD -Ultrasound [facility] Work Phone: Start: 06-08-2025 End: 06-08-2025 ambulatory [facility] Facility:[facility] Start: 06-06-2025 End: 06-06-[address] Pastor Garcia MD Work Phone: -Cat Scan [facility] Start: 06-06-2025 End: 06-06-[address] Yon Salas MD -Cat Scan [facility] Work Phone: Start: 06-05-2025 End: 06-06-[address] Pastor Garcia MD Work Phone: -Laboratory Phy Office 3rd Flr Start: 06-05-2025 End: 06-05-[address] Yon Salas MD -Laboratory Phy Office 3rd Flr Start: 06-04-2025 End: 06-05-[address] Pastor Garcia MD Work Phone: -Laboratory Start: 06-04-2025 End: 06-04-[address] Yon Salas MD -Laboratory Work Phone: Start: 06-04-2025 End: 06-04-2025 ambulatory [facility] Facility:[facility] Start: 05-21-2025 End: 05-21-[address] Pastor Garcia MD Work Phone: -Radiology [facility] Start: 05-21-2025 End: 05-21-[address] Yon Salas MD -Radiology [facility] Work Phone: Start: 05-21-2025 End: 05-21-2025 ambulatory [facility] Facility:[facility] Start: 05-18-2025 End: 05-18-[address] Lei Sung MD -[facility] Work Phone: Start: 05-18-2025 End: 05-18-[address] Pastor Garcia MD Work Phone: -[facility] Start: 01-11-2025 End: 01-11-2025 ambulatory [facility] Facility:[facility] Start: 12-12-2024 End: 12-13-2024 Telephone encounter Elan Garcia MD Work Phone: Family [facility] Comment on above: Patient Question Start: 11-20-2024 End: 11-20-2024 Telephone encounter Elan Garcia MD Work Phone: [facility] Comment on above: Medication Question Start: 11-17-2024 End: 11-17-2024 ambulatory Lei Sung Facility:[facility] Start: 11-13-2024 End: 11-13-2024 ambulatory [facility] Start: 11-13-2024 End: 11-13-2024 Patient encounter procedure [facility] Comment on above: Population Health Na vigation Outreach ([employer] AWV Initiative) Start: 10-27-2024 End: 10-27-2024 Patient encounter procedure Edna Loco APRN.CNP Work Phone: [facility] [place] Comment on above: Essential hypertensi on (Primary Dx); Stage 3a chronic kidney disease (HCC); Gastroesophageal reflux disease without esophagitis; Acquired hypothyroidism; Hypopituitarism (HCC) Start: 10-27-2024 End: 10-27-2024 ambulatory ELAN GARCIA Facility:[facility] Start: 09-26-2024 End: 09-27-2024 Telephone encounter Adeline Butler APRN.CNP Work Phone: [facility] [place] Comment on above: Results Start: 09-25-2024 End: 09-25-2024 Patient encounter procedure Adeline Butler APRN.CNP Work Phone: [facility] [place] Comment on above: Acute left-sided low back pain with left-sided sciatica (Primary Dx); Lower abdominal tenderness Start: 09-25-2024 End: 09-25-2024 ambulatory ELAN GARCIA Facility:[facility] Start: 09-22-2024 End: 09-22-2024 Patient encounter procedure Elan Garcia MD Work Phone: [facility] Comment on above: Acute bilateral low back pain with right-sided sciatica (Primary Dx); Essential hypertension; Mixed hyperlipidemia; Stage 3a chronic kidney disease (HCC) Start: 09-22-2024 End: 09-22-2024 ambulatory ELAN GARCIA Facility:[facility] Start: 08-23-2024 End: 08-23-2024 Refill Elan Garcia MD Work Phone: [facility] Comment on above: Refill Request Start: 08-03-2024 End: 08-03-2024 Telephone encounter Sally Singh APRN.CNP Work Phone: Family [facility] [place] Comment on above: Results Start: 08-03-2024 End: 08-03-2024 ambulatory ELAN GARCIA Facility:[facility] Start: 08-03-2024 End: 08-03-2024 Subsequent hospital visit by physician [facility] Work Phone: Radiology Comment on above: Pain in right lower leg [M79.661] Start: 07-31-2024 End: 07-31-2024 Patient encounter procedure Edna Loco APRN.ROUNDING MACHINE OPERATOR Work Phone: [facility] Comment on above: Pain in right lower leg (Primary Dx) Start: 07-31-2024 End: 07-31-2024 ambulatory ELAN GARCIA Facility:[facility] Start: 06-23-2024 End: 06-23-2024 ambulatory Catherine Valles PT [facility] Comment on above: Fall in home, initia l encounter (Primary Dx); Closed fracture of ramus of right pubis with routine healing, subsequent encounter Start: 06-22-2024 End: 06-22-2024 ambulatory ELAN GARCIA Facility:[facility] Start: 06-22-2024 End: 06-22-2024 Patient encounter [...] Start: 06-13-2024 End: 06-13-2024 ambulatory Barbara Ahumada PTA Work Phone: [facility] Comment on above: Fall in home, initia l encounter (Primary Dx); Closed fracture of ramus of right pubis with routine healing, subsequent encounter Start: 06-02-2024 Telephone encounter Jg Pina PT, DPT [facility] Comment on above: Patient Question Start: 06-01-2024 End: 06-01-2024 ambulatory Jg Howard PT, DPT [facility] Comment on above: Fall in home, subseq uent encounter (Primary Dx); Other fracture of unspecified thoracic vertebra, initial encounter for closed fracture (HCC); Closed fracture of ramus of right pubis with routine healing, subsequent encounter Start: 05-24-2024 End: 05-24-2024 ambulatory ELAN GARCIA Facility:[facility] Start: 05-24-2024 End: 05-24-2024 Subsequent hospital visit by physician Janna [facility] [place] Work Phone: Radiology Comment on above: Fall in home, subseq uent encounter [W19.XXXD, Y92.009] Start: 05-13-2024 End: 05-13-2024 ambulatory ELAN GARCIA Facility:[facility] Start: 05-13-2024 End: 05-13-2024 Patient encounter procedure Elna Garcia MD Work Phone: [facility] Comment on above: Fall in home, subseq uent encounter (Primary Dx); Other fracture of unspecified thoracic vertebra, initial encounter for closed fracture (HCC); Closed fracture of ramus of right pubis with routine healing, subsequent encounter Start: 04-26-2024 Refill Elan Garcia MD Work Phone: [facility] Comment on above: Refill Request Start: 03-22-2024 End: 03-22-2024 ambulatory ELAN GARCIA Facility:[facility] Start: 03-22-2024 End: 03-22-2024 Patient encounter procedure Edna Loco APRN.ROUNDING MACHINE OPERATOR Work Phone: [facility] Comment on above: Essential hypertensi on (Primary Dx); Disease of pituitary gland (HCC); Pituitary adenoma (HCC); Stage 3a chronic kidney disease (HCC); Acquired hypothyroidism; Mixed hyperlipidemia; Hypopituitarism (HCC); Screening for depression; Gastroesophageal reflux disease without esophagitis Start: 02-28-2024 End: 02-28-2024 ambulatory ELAN GARCIA Facility:[facility] Start: 02-28-2024 End: 02-28-2024 Patient encounter procedure Edna Loco APRN.CNP Work Phone: [facility] Comment on above: Upper respiratory tr act infection, unspecified type (Primary Dx) Start: 02-23-2024 Refill Elan Garcia MD Work Phone: [facility] Comment on above: Refill Request Start: 02-02-2024 End: 02-02-2024 Patient encounter procedure Edna Loco ROUNDING MACHINE OPERATOR Work Phone: [facility] Comment on above: Daron infection (P rimary Dx) Start: 02-02-2024 End: 02-02-2024 ambulatory ELAN GARCIA Facility:[facility] Start: 01-31-2024 Telephone encounter Pastor Garcia MD Work Phone: [facility] [place] Comment on above: rectal issue Start: 01-29-2024 End: 01-29-2024 Patient encounter procedure Elan Garcia MD Work Phone: [facility] [place] Comment on above: Colitis (Primary Dx) ; Allergic reaction to contrast material, initial encounter; Stage 3a chronic kidney disease (HCC) Start: 01-29-2024 End: 01-29-2024 ambulatory ELAN GARCIA Facility:[facility] Start: 01-24-2024 Telephone encounter Pastor Garcia MD Work Phone: [facility] Comment on above: ER F/U; Nausea Start: 01-22-2024 End: 01-23-2024 Emergency department patient visit Dr. Pastor Garcia Work Phone: [facility] Work Phone: Start: 01-11-2024 End: 01-11-[address] 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 Start: 01-04-2024 ambulatory Elan Garcia MD Work Phone: [facility] Comment on above: Leg Pain Start: 12-01-2023 End: 12-01-2023 Subsequent hospital visit by physician Xr [facility] Work Phone: Radiology Comment on above: Rib pain on right si de [R07.81] Start: 11-19-2023 End: 11-19-2023 ambulatory [facility] Work Phone: Start: 11-19-2023 End: 11-19-2023 Patient encounter procedure [facility] Work Phone: Start: 10-08-2023 Telephone encounter Pastor Garcia MD Work Phone: [facility] Comment on above: medication replaceme nt request Start: 08-09-2023 Telephone encounter Edna barraza APRN.ROUNDING MACHINE OPERATOR Work Phone: [facility] Comment on above: Results Start: 08-03-2023 End: 08-03-2023 Patient encounter procedure Edna Loco APRN.ROUNDING MACHINE OPERATOR Work Phone: [facility] Comment on above: Vaginal discharge (P rimary Dx); Vaginal itching Start: 07-21-2023 End: 07-21-[address] Pastor Garcia Work Phone: [facility] Work Phone: Start: 07-21-2023 End: 07-21-[address] Pastor Garcia Work Phone: [facility] Work Phone: Start: 05-21-2023 End: 05-21-[address] Pastor Garcia Work Phone: [facility] Work Phone: Start: 05-21-2023 End: 05-21-[address] Pastor Garcia Work Phone: [facility] [place] Work Phone: Start: 05-20-2023 End: 05-20-[address] Pastor Garcia Work Phone: [facility] Work Phone: Start: 05-20-2023 End: 05-20-[address] Pastor Garcia Work Phone: [facility] [place] Work Phone: Start: 05-07-2023 End: 05-07-2023 Patient encounter procedure Brian Ashton MD Work Phone: [facility] Comment on above: Pituitary adenoma (H CC) (Primary Dx) Start: 04-02-2023 Non-patient / Non-visit Dr. Camilo Garcia Work Phone: [facility] Start: 04-02-2023 Non-patient / Non-visit Dr. Camilo Garcia Work Phone: [facility] [place] Start: 04-01-2023 End: 04-02-2023 Evaluation and management of inpatient Dr. Pastor Garcia Work Phone: [facility] [place] Start: 04-01-2023 End: 04-02-[address] Pastor Garcia Work Phone: [facility] Work Phone: Start: 04-01-2023 Non-patient / Non-visit Dr. Camilo Garcia Work Phone: [facility] Start: 03-16-2023 ambulatory [facility] Comment on above: Results Start: 03-16-2023 E-mail encounter fro m caregiver [facility] [place] Start: 03-08-2023 End: 03-08-2023 Patient encounter procedure Edna Loco APRN.ROUNDING MACHINE OPERATOR Work Phone: [facility] Comment on above: Essential hypertensi on (Primary Dx); Hypopituitarism (HCC); Glucocorticoid deficiency (HCC); Senile osteoporosis Start: 02-24-2023 Refill Elan Garcia MD Work Phone: [facility] Comment on above: Refill Request Start: 11-10-2022 End: 11-10-2022 ambulatory [facility] Work Phone: Start: 11-10-2022 End: 11-10-2022 Patient encounter procedure [facility] Start: 10-21-2022 Telephone encounter Edna barraza APRN.ROUNDING MACHINE OPERATOR Work Phone: [facility] Comment on above: Results Start: 10-21-2022 End: 10-21-2022 Subsequent hospital visit by physician Xr [facility] Work Phone: Radiology Comment on above: Expiratory wheezing [R06.2] Start: 10-21-2022 End: 10-21-2022 Patient encounter procedure Edna Loco APRN.ROUNDING MACHINE OPERATOR Work Phone: [facility] Comment on above: Acute cough (Primary Dx); Expiratory wheezing Start: 07-20-2022 Telephone encounter Pastor Garcia MD Work Phone: [facility] Comment on above: Results Start: 07-17-2022 End: 07-17-2022 Subsequent hospital visit by physician Xr [facility] Work Phone: Radiology Comment on [...] End: 06-22-2022 Patient encounter procedure Edna Loco APRN.ROUNDING MACHINE OPERATOR Work Phone: [facility] Comment on above: Fall, subsequent enc ounter [...] procedure Mitul Sánchez DO Work Phone: [facility] Start: 06-03-2022 End: 06-03-2022 Patient encounter procedure Elan Garcia MD Work Phone: [facility] Comment on above: Leukocytosis, unspec ified type (Primary Dx); Neutrophilia; Essential hypertension; Mixed hyperlipidemia; Hypopituitarism (HCC); Gastroesophageal reflux disease without esophagitis; Stage 3a chronic kidney disease (HCC); Vaginal irritation Start: 06-01-2022 End: 06-01-2022 Subsequent hospital visit by physician Janna [facility] [place] Work Phone: Radiology Comment on above: Neutrophilia [D72.9] Start: 05-29-2022 Telephone encounter Pastor Garcia MD Work Phone: [facility] Comment on above: Results Start: 05-15-2022 Telephone encounter Edna barraza APRN.ROUNDING MACHINE OPERATOR Work Phone: [facility] Comment on above: Orders Start: 05-13-2022 Telephone encounter Pastor Garcia MD Work Phone: [facility] Comment on above: Results Start: 05-12-2022 Telephone encounter Pasotr Garcia MD Work Phone: [facility] Comment on above: Results Start: 05-12-2022 End: 05-12-2022 Subsequent hospital visit by physician [facility] Work Phone: Cat Scan Comment on above: Leukocytosis, unspec ified type [D72.829] Start: 05-12-2022 End: 05-12-[address] Kasey Bashir Work Phone: [facility] Start: 05-11-2022 End: 05-11-2022 Patient encounter [...] encounter procedure Dr. Kasey Bashir Work Phone: [facility], [facility] Start: 04-30-2022 End: 04-30-[address] Kasey Bashir Work Phone: [facility] Start: 04-23-2022 Telephone encounter Pastor Garcia MD Work Phone: [facility] Comment on above: Lab Orders Start: 04-14-2022 Telephone encounter Edna barraza APRN.ROUNDING MACHINE OPERATOR Work Phone: [facility] Comment on above: Results Start: 04-13-2022 End: 04-13-2022 Patient encounter procedure Edna Claudy BRAVO.ROUNDING MACHINE OPERATOR Work Phone: [facility] Comment on above: Vaginal irritation ( Primary Dx) Start: 03-20-2022 End: 03-20-2022 Subsequent hospital visit by physician [facility] [place] Work Phone: Radiology Comment on above: Chronic [...] 05-30-2021 Subsequent hospital visit by physician Xr [facility] [place] Work Phone: Radiology Comment on above: Foot pain, left [M79 .672] Start: 12-20-2020 End: 12-20-2020 Subsequent hospital visit by physician Xr [facility] [place] Work Phone: Radiology Comment on above: Cough [R05] Start: 11-19-2020 End: 11-19-2020 Subsequent hospital visit by physician Xr [facility] [place] Work Phone: Radiology Comment on above: Acute bilateral low back pain without sciatica [M54.5] Start: 10-28-2018 End: 10-28-2018 Patient encounter procedure [facility] Start: 04-22-2009 End: 04-15-2016 Patient encounter status Edna Claudy CATESN.ROUNDING MACHINE OPERATOR Work Phone: [facility] Work Phone: Procedures Date Procedure Procedure Detail Performing Clinician Start: 07-10-2025 Vitamin D, 25-hydrox y measurement Dr. Pastor Garcia MD Work Phone: Comment on above: Vitamin D StatusDefi ciency: <20 ng/mL (50nmol/L)Insufficiency: 20-30 ng/mL (50-75 nmol/L)Sufficiency: 30-100 ng/mL (75-250 nmol/L)Toxicity: >100 ng/mL (>250 nmol/L) Start: 06-19-2025 MRI of brain with contrast Dr. Pastor Garcia MD Work Phone: Start: 06-08-2025 Complete ultrasound of kidneys and [...] et rgnt auto w/o microscopy Adeline Butler DIAGNOSTIC CARDIAC SONOGRAPHER.ROUNDING MACHINE OPERATOR Work Phone: Start: 08-03-2024 Dup-scan xtr veins unilateral/limited study Edna Loco DIAGNOSTIC CARDIAC SONOGRAPHER.ROUNDING MACHINE OPERATOR Work Phone: Start: 05-24-2024 Radex hip unilateral [...] rgnt auto w/o microscopy Edna Goyallogjose angel DIAGNOSTIC CARDIAC SONOGRAPHER.ROUNDING MACHINE OPERATOR Work Phone: Start: 04-02-2023 Magnetic resonance angiography [...] exam ches t 2 views Edna Loco DIAGNOSTIC CARDIAC SONOGRAPHER.ROUNDING MACHINE OPERATOR Work Phone: Start: 07-17-2022 Radex hand minimum [...] complete minimum 3 views Edna Podlogjose angel DIAGNOSTIC CARDIAC SONOGRAPHER.ROUNDING MACHINE OPERATOR Work Phone: Start: 04-22-2021 Adult depression screening assessment Elan Garcia MD Work Phone: Start: 12-20-2020 Radiologic exam ches t 2 views Cary Smith DIAGNOSTIC CARDIAC SONOGRAPHER.ROUNDING MACHINE OPERATOR Work Phone: Start: 11-19-2020 Radex spine lumbosac ral 2/3 views Elan Garcia MD Work Phone: Start: 07-17-2019 Colonoscopy Pastor Garcia MD Work Phone: Plan of Treatment Date Care Activity Detail Author Start: 03-01-2030 Urine microalbumin profile [facility] Start: 09-25-2027 Diabetes Screening Diabetes [facility] Start: 06-22-2027 [facility] Start: 05-11-2027 LIPID SCREEN LIPID SCREEN [facility] Start: 01-28-2027 Diabetes Screening [facility] Start: 12-01-2026 Diabetes Screening [facility] Start: 09-22-2026 Diabetes Screening [facility] Start: 04-16-2026 LIPID SCREEN LIPID SCREEN [facility] Start: 03-15-2026 DIABETES SCREEN DIABETES SCREEN [facility] Start: 03-15-2026 Diabetes Screening Diabetes Screenin g [facility] Start: 12-08-2025 Screening for osteoporosis Bone Density Screening [facility] Start: 10-27-2025 Annual PCP Team Sales Contractor aaron Disease Visit Annual PCP Team Chronic Disease Visit [facility] Start: 10-27-2025 Covid-19 Vaccine ( season) Covid-19 Vaccine () [facility] Comment on above: Postponed from 07/23 (Declined at this time) Start: 09-25-2025 Annual PCP Team Sales Contractor aaron Disease Visit Annual PCP Team Chronic Disease Visit [facility] Start: 09-25-2025 Creatinine measurement Serum Creatin ine [facility] Start: 07-31-2025 Annual PCP Team Sales Contractor aaron Disease Visit Annual PCP Team Chronic Disease Visit [facility] Start: 06-22-2025 Annual PCP Team Sales Contractor aaron Disease Visit Annual PCP Team Chronic Disease Visit [facility] Start: 06-22-2025 BP Controlled (<130/80) BP Controlle d (<130/80) [facility] Start: 06-22-2025 Creatinine measurement Serum Creatin ine [facility] Start: 06-05-2025 [facility] Start: 06-05-2025 Urine culture Urine Culture [facility] Start: 06-01-2025 BP Controlled (<130/80) BP Controlle d (<130/80) [facility] Start: 05-21-2025 Influenza vaccination Influenza Vacc ine (#1) [facility] Comment on above: Postponed from 07/23 (Declined at this time) Start: 05-13-2025 Annual PCP Team Sales Contractor aaron Disease Visit Annual PCP Team Chronic Disease Visit [facility] Start: 05-13-2025 BP Controlled (<130/80) BP Controlle d (<130/80) [facility] Start: 05-11-2025 DIABETES SCREEN DIABETES SCREEN [facility] Start: 04-27-2025 End: 04-27-2025 Patient encounter procedure [facility] [place] Comment on above: 6 month follow up 6 month follow up/[facility]*Per [employer]-[id number], [id number] Modifier 25* Start: 03-22-2025 Annual PCP Team Sales Contractor aaron Disease Visit Annual PCP Team Chronic Disease Visit [facility] Start: 03-22-2025 Anxiety Screening Anxiety Screening [facility] Start: 03-22-2025 BP Controlled (<130/80) BP Controlle d (<130/80) [facility] Start: 03-22-2025 Depression Screening Depression Scre ening [facility] Start: 02-27-2025 Annual PCP Team Sales Contractor aaron Disease Visit Annual PCP Team Chronic Disease Visit [facility] Start: 02-01-2025 Annual PCP Team Sales Contractor aaron Disease Visit Annual PCP Team Chronic Disease Visit [facility] Start: 01-28-2025 Annual PCP Team Sales Contractor aaron Disease Visit Annual PCP Team Chronic Disease Visit [facility] Start: 01-28-2025 BP Controlled (<130/80) BP Controlle d (<130/80) [facility] Start: 01-28-2025 Complete blood count Hemoglobin/Jake tocrit [facility] Start: 01-28-2025 Creatinine measurement Serum Creatin ine [facility] Start: 01-05-2025 Annual PCP Team Sales Contractor aaron Disease Visit Annual PCP Team Chronic Disease Visit [facility] Start: 01-05-2025 BP Controlled (<130/80) BP Controlle d (<130/80) [facility] Start: 12-01-2024 Annual PCP Team Sales Contractor aaron Disease Visit Annual PCP Team Chronic Disease Visit [facility] Start: 12-01-2024 Complete blood count Hemoglobin/Jake tocrit [facility] Start: 12-01-2024 Creatinine measurement Serum Creatin ine [facility] Start: 11-23-2024 End: 11-23-2024 ambulatory 11/23/2024 10:15 AM EST [facility] [address] [place] [address] Catherine Valles, PT Acute left-sided low back pain with left-sided sciatica [M54.42] [facility] Comment on above: Acute left-sided low back pain with left-sided sciatica [M54.42] Start: 11-22-2024 Advance Directive Discussion Advance Directive Discussion [facility] Start: 10-27-2024 End: 10-27-2024 Patient encounter procedure 10/27/2024 10:00 AM EST Office Visit [facility] [place] [address] [place] [address] PodlogarEdna APRN.ROUNDING MACHINE OPERATOR [address] [place] [address] routine follow up [facility] [place] Comment on above: routine follow up Start: 10-21-2024 DIABETES SCREEN DIABETES SCREEN [facility] Start: 09-22-2024 Annual PCP Team Sales Contractor aaron Disease Visit Annual PCP Team Chronic Disease Visit [facility] Start: 09-22-2024 End: 12-22-2024 Comprehensive metabolic 2000 panel - Serum or Plasma COMPREHENSIVE METABOLIC PANEL Lab Routine Stage 3a chronic kidney disease (HCC) Expected: 09/22/2024, Expires: 12/22/2024 [facility] Work Phone: Comment on above: Expected: 09/22/2024 , Expires: 12/22/2024 Start: 09-22-2024 Covid-19 Vaccine (#1) Covid-19 Vacci ne (#1) [facility] Comment on above: Postponed from 10/20 (Declined at this time) Start: 09-22-2024 Covid-19 Vaccine () Covid-19 Vaccine () [facility] Comment on above: Postponed from 07/23 (Declined at this time) Start: 09-22-2024 End: 12-22-2024 Lipid 1996 panel - Serum or Plasma LIPID PANEL BASIC Lab Routine Mixed hyperlipidemia Expected: 09/22/2024, Expires: 12/22/2024 [facility] Comment on above: Expected: 09/22/2024 , Expires: 12/22/2024 Start: 09-22-2024 Pneumococcal Vaccine : 65+ (2 - PCV) Pneumococcal Vaccine: 65+ (2 - PCV) [facility] Comment on above: Postponed from 09/18 (Declined at this time) Start: 09-22-2024 Pneumococcal Vaccine : 65+ (2 of 2 - PCV) Pneumococcal Vaccine: 65+ (2 of 2 - PCV) [facility] Comment on above: Postponed from 09/18 (Declined at this time) Start: 09-22-2024 RSV Vaccine (1 - 1-d ose 60+ series) RSV Vaccine (1 - 1-dose 60+ series) [facility] Comment on above: Postponed from 04/19 (Declined at this time) Start: 09-22-2024 RSV Vaccine (1 - 1-d ose 75+ series) RSV Vaccine (1 - 1-dose 75+ series) [facility] Comment on above: Postponed from 04/19 (Declined at this time) Start: 09-22-2024 Serum Creatinine Serum Creatinine Cl [facility] Start: 09-22-2024 Shingrix Vaccine (1 of 2) [place] grix Vaccine (1 of 2) [facility] Comment on above: Postponed from 04/19 (Declined at this time) Start: 09-22-2024 End: 09-22-2024 Patient encounter procedure 09/22/2024 10:00 AM EDT Office Visit [facility] [address] [place] [address] Elan Garcia MD [address] [place] [address] 6 month follow up Family [facility] Comment on above: 6 month follow up Start: 08-03-2024 Annual PCP Team Sales Contractor aaron Disease Visit Annual PCP Team Chronic Disease Visit [facility] Start: 08-03-2024 BP Controlled (<130/80) BP Controlle d (<130/80) [facility] Start: 08-03-2024 End: 08-03-2024 Patient encounter procedure 08/03/2024 10:45 AM EDT Appointment Radiology [address] [place] [address] Pain in right lower leg [M79.661] Radiology Comment on above: Pain in right lower leg [M79.661] Start: 07-23-2024 Covid-19 Vaccine ( season) Covid-19 Vaccine ( season) [facility] Start: 07-23-2024 Covid-19 Vaccine ( season) Covid-19 Vaccine ( season) [facility] Start: 07-23-2024 Influenza vaccination C [facility] Start: 07-17-2024 Colonoscopy COLONOSCOPY [facility] Start: 07-17-2024 COLORECTAL CANCER SCREENING COLORECTAL CANCER SCREENING [facility] Start: 06-23-2024 End: 06-23-2024 ambulatory 06/23/2024 10:00 AM EDT OT/PT/Speech Visit [facility] [address] [place] [id number] Catherine Valles, PT Right Hip FX [place] [facility] Comment on above: Right Hip FX Start: 06-22-2024 End: 09-21-2024 Comprehensive metabolic 2000 panel - Serum or Plasma [facility] Work Phone: Comment on above: Expected: 06/22/2024 , Expires: 09/21/2024 Start: 06-22-2024 End: 09-21-2024 Urinalysis complete panel - Urine [facility] Comment on above: Expected: 06/22/2024 , Expires: 09/21/2024 Start: 06-22-2024 End: 06-22-2024 Patient encounter procedure 06/22/2024 10:00 AM EDT Office Visit [facility] [place] [address] [place] [address] Elan Garcia MD [address] [facility] [place] [place] [address] [facility] [place] Comment on above: 6 week follow up Start: 06-01-2024 End: 06-01-2024 ambulatory 06/01/2024 9:45 AM EDT OT/PT/Speech Visit [facility] [address] [place] [address] Jg Howard, PT, DPT Fall in home, subsequent encounter [W19.XXXD, Y92.009]; Other fracture of unspecified thoracic vertebra, initial encounter for closed fracture (HCC) [S22.008A]; Closed fracture of ramus of right pubis with routine healing, subsequent encounter [S32.591D] [facility] Comment on above: Fall in home, subseq uent encounter [W19.XXXD, Y92.009]; Other fracture of unspecified thoracic vertebra, initial encounter for closed fracture (HCC) [S22.008A]; Closed fracture of ramus of right pubis with routine healing, subsequent encounter [S32.591D] Start: 05-26-2024 End: 05-26-2024 Patient encounter procedure 05/26/2024 10:00 AM EDT Appointment Radiology [address] [place] [address] Hip xray Radiology Comment on above: Hip xray Start: 05-21-2024 Influenza vaccination Influenza Vacc ine (#1) [facility] Comment on above: Postponed from 07/23 (Declined at this time) Start: 05-18-2024 End: 06-12-2025 XR Pelvis and Hip - right AP and Lateral frog XR HIP GENERAL 3V PELV/AP/LAT RIGHT Radiology Routine Fall in home, subsequent encounter Closed fracture of ramus of right pubis with routine healing, subsequent encounter Expected: 05/18/2024, Expires: 06/12/2025 [facility] Work Phone: Comment on above: Expected: 05/18/2024 , Expires: 06/12/2025 Start: 04-12-2024 ANNUAL PCP TEAM TANK TRUCK MECHANIC AARON DISEASE VISIT ANNUAL PCP TEAM CHRONIC DISEASE VISIT [facility] Start: 03-15-2024 SERUM CREATININE SERUM CREATININE [facility] Start: 03-08-2024 ANNUAL PCP TEAM TANK TRUCK MECHANIC AARON DISEASE VISIT ANNUAL PCP TEAM CHRONIC DISEASE VISIT [facility] Start: 03-08-2024 BP CONTROLLED (<130/80) BP CONTROLLE D (<130/80) [facility] Start: 01-29-2024 End: 04-29-2024 CBC W Auto Differential panel - Blood [facility] Work Phone: Comment on above: Expected: 01/29/2024 , Expires: 04/29/2024 Start: 01-29-2024 End: 04-29-2024 Comprehensive metabolic 2000 panel - Serum or Plasma [facility] Work Phone: Comment on above: Expected: 01/29/2024 , Expires: 04/29/2024 Start: 01-23-2024 [facility] Start: 12-21-2023 Shingrix Vaccine (2 of 2) Zurita grix Vaccine (2 of 2) [facility] Start: 11-22-2023 Advance Directive Discussion Advance Directive Discussion [facility] Start: 11-22-2023 Behavioral Health Screening Behavioral Health Screening [facility] Start: 11-22-2023 Depression Assessment Depression Ass essment [facility] Start: 10-21-2023 ANNUAL PCP TEAM TANK TRUCK MECHANIC AARON DISEASE VISIT ANNUAL PCP TEAM CHRONIC DISEASE VISIT [facility] Start: 07-23-2023 Influenza vaccination C [facility] Start: 07-17-2023 ANNUAL PCP TEAM TANK TRUCK MECHANIC AARON DISEASE VISIT ANNUAL PCP TEAM CHRONIC DISEASE VISIT [facility] Start: 07-17-2023 BP CONTROLLED (<130/80) BP CONTROLLE D (<130/80) [facility] Start: 06-22-2023 ANNUAL PCP TEAM TANK TRUCK MECHANIC AARON DISEASE VISIT ANNUAL PCP TEAM CHRONIC DISEASE VISIT [facility] Start: 06-22-2023 BP CONTROLLED (<130/80) BP CONTROLLE D (<130/80) [facility] Start: 06-15-2023 HEMOGLOBIN/HEMATOCRIT HEMOGLOBIN/HEM ATOCRIT [facility] Start: 06-03-2023 ANNUAL PCP TEAM TANK TRUCK MECHANIC AARON DISEASE VISIT ANNUAL PCP TEAM CHRONIC DISEASE VISIT [facility] Start: 06-03-2023 BP CONTROLLED (<130/80) BP CONTROLLE D (<130/80) [facility] Start: 06-03-2023 COVID-19 VACCINE (#1) COVID-19 VACCI NE (#1) [facility] Comment on above: Postponed from 10/20 (Declined at this time) Start: 06-03-2023 PNEUMOCOCCAL: 65+ (2 - PCV) PNEUMOCOCCAL: 65+ (2 - PCV) [facility] Comment on above: Postponed from 09/18 (Declined at this time) Start: 06-03-2023 SHINGRIX VACCINE (1 of 2) ZURITA GRIX VACCINE (1 of 2) [facility] Comment on above: Postponed from 04/19 (Declined at this time) Start: 05-21-2023 Influenza vaccination INFLUENZA (#1) [facility] Comment on above: Postponed from 07/23 (Declined at this time) Start: 05-11-2023 ANNUAL PCP TEAM TANK TRUCK MECHANIC AARON DISEASE VISIT ANNUAL PCP TEAM CHRONIC DISEASE VISIT [facility] Start: 05-11-2023 HEMOGLOBIN/HEMATOCRIT HEMOGLOBIN/HEM ATOCRIT [facility] Start: 05-11-2023 SERUM CREATININE SERUM CREATININE [facility] Start: 04-13-2023 ANNUAL PCP TEAM TANK TRUCK MECHANIC AARON DISEASE VISIT ANNUAL PCP TEAM CHRONIC DISEASE VISIT [facility] Start: 04-13-2023 BP CONTROLLED (<130/80) BP CONTROLLE D (<130/80) [facility] Start: 04-02-2023 Patient discharge [facility] Start: 04-02-2023 Referral to occupati onal therapist [facility] Start: 04-01-2023 Following clinical pathway protocol [facility] Start: 04-01-2023 Application of intermittent pneumatic compression device [facility] Start: 04-01-2023 Assessment of risk o f venous thromboembolism [facility] Start: 04-01-2023 Cardiac monitoring [facility] Start: 04-01-2023 Catheterization of vein [facility] Start: 04-01-2023 Continuous pulse oximetry [facility] Start: 04-01-2023 Elevation of head of bed [facility] Start: 04-01-2023 Exercises [facility] Start: 04-01-[address] anned interventions [facility] Start: 04-01-2023 Inhalation therapy procedure [facility] Start: 04-01-2023 Insertion of cathete r into peripheral vein [facility] Start: 04-01-2023 Measuring intake and output [facility] Start: 04-01-2023 Notification of physician [facility] Start: 04-01-2023 Oxygen therapy [facility] Start: 04-01-2023 Providing care accor ding to standard [facility] Start: 04-01-2023 Provision of activit y privileges [facility] Start: 04-01-2023 Referral to service [facility] Start: 04-01-2023 Tobacco use cessatio n education [facility] Start: 04-01-2023 [facility] Start: 04-01-2023 Verification routine [facility] Start: 04-01-2023 Admission procedure [facility] Start: 03-20-2023 ANNUAL PCP TEAM TANK TRUCK MECHANIC AARON DISEASE VISIT ANNUAL PCP TEAM CHRONIC DISEASE VISIT [facility] Start: 03-20-2023 BP CONTROLLED (<130/80) BP CONTROLLE D (<130/80) [facility] Start: 03-08-2023 End: 05-08-2023 Comprehensive metabolic 2000 panel - Serum or Plasma COMP METABOLIC PANEL Lab Routine Essential hypertension Expected: 03/08/2023, Expires: 05/08/2023 [facility] Work Phone: Comment on above: Expected: 03/08/2023 , Expires: 05/08/2023 Start: 11-22-2022 ADVANCE DIRECTIVE DISCUSSION ADVANCE DIRECTIVE DISCUSSION [facility] Start: 11-22-2022 DEPRESSION ASSESSMENT DEPRESSION ASS ESSMENT [facility] Start: 11-10-2022 Therapeutic prophylactic/dx injection subq/im THER/PROPH/DIAG INJ SC/IM [facility] Work Phone: Start: 10-21-2022 SERUM CREATININE SERUM CREATININE [facility] Start: 08-17-2022 End: 08-16-2023 Screening mammography bi 2-view breast inc cad JOON SCREENING Radiology Routine Screening mammogram for breast cancer Expected: 08/17/2022, Expires: 08/16/2023 [facility] Work Phone: Comment on above: Expected: 08/17/2022 , Expires: 08/16/2023 Start: 08-13-2022 Mammography MAMMOGRAM [facility] Start: 07-23-2022 Influenza vaccination INFLUENZA (#1) [facility] Start: 06-15-2022 End: 08-15-2022 BCR-ABL QUALITATIVE MULTIPLEX RT-PCR [facility] Work Phone: Comment on above: Expected: 06/15/2022 , Expires: 08/15/2022 Start: 06-15-2022 End: 08-15-2022 Cortisol [Mass/volume] in Serum or Plasma [facility] Work Phone: Comment on above: Expected: 06/15/2022 , Expires: 08/15/2022 Start: 05-26-2022 End: 07-26-2022 CBC W Auto Differential panel - Blood CBC + DIFF Lab Routine Neutrophilia Expected: 05/26/2022, Expires: 07/26/2022 [facility] Work Phone: Comment on above: Expected: 05/26/2022 , Expires: 07/26/2022 Start: 05-23-2022 End: 07-23-2022 CBC panel - Blood by Automated count CBC Lab Routine Hypopituitarism (HCC) Essential hypertension Mixed hyperlipidemia Expected: 05/23/2022, Expires: 07/23/2022 [facility] Work Phone: Comment on above: Expected: 05/23/2022 , Expires: 07/23/2022 Start: 05-23-2022 End: 07-23-2022 Comprehensive metabolic 2000 panel - Serum or Plasma COMP METABOLIC PANEL Lab Routine Hypopituitarism (HCC) Essential hypertension Mixed hyperlipidemia Expected: 05/23/2022, Expires: 07/23/2022 [facility] Work Phone: Comment on above: Expected: 05/23/2022 , Expires: 07/23/2022 Start: 05-23-2022 End: 07-23-2022 LIPID PANEL, NONFASTING LIPID PANEL, NONFASTING Lab Routine Hypopituitarism (HCC) Essential hypertension Mixed hyperlipidemia Expected: 05/23/2022, Expires: 07/23/2022 [facility] Work Phone: Comment on above: Expected: 05/23/2022 , Expires: 07/23/2022 Start: 05-23-2022 End: 07-23-2022 Thyrotropin [Units/volume] in Serum or Plasma TSH BLD Lab Routine Hypopituitarism (HCC) Essential hypertension Mixed hyperlipidemia Expected: 05/23/2022, Expires: 07/23/2022 [facility] Work Phone: Comment on above: Expected: 05/23/2022 , Expires: 07/23/2022 Start: 04-22-2022 Adult depression screening assessment DEPRESSION SCREENING [facility] Start: 04-22-2022 COVID-19 VACCINE (#1) COVID-19 VACCI NE (#1) [facility] Comment on above: Postponed from 04/19 (Declined at this time) Start: 04-22-2022 COVID-19 VACCINE (1) COVID-19 VACCIN E (1) [facility] Comment on above: Postponed from 04/19 (Declined at this time) Start: 2022 RSV Vaccine (1 - 1-d ose 75+ series) RSV Vaccine (1 - 1-dose 75+ series) [facility] Start: 04-16-2022 HEMOGLOBIN/HEMATOCRIT HEMOGLOBIN/HEM ATOCRIT [facility] Start: 11-22-2021 ADVANCE DIRECTIVE DISCUSSION ADVANCE DIRECTIVE DISCUSSION [facility] Start: 11-22-2021 DEPRESSION ASSESSMENT DEPRESSION ASS ESSMENT [facility] Start: 09-18-2014 Pneumococcal Vaccine : 50+ (2 of 2 - PCV) Pneumococcal Vaccine: 50+ (2 of 2 - PCV) [facility] Start: 09-18-2014 Pneumococcal Vaccine : 65+ (2 - PCV) Pneumococcal Vaccine: 65+ (2 - PCV) [facility] Start: 09-18-2014 Pneumococcal Vaccine : 65+ (2 of 2 - PCV) Pneumococcal Vaccine: 65+ (2 of 2 - PCV) [facility] Start: 09-18-2014 PNEUMOCOCCAL: 65+ (2 - PCV) PNEUMOCOCCAL: 65+ (2 - PCV) [facility] Start: 09-27-2013 FECAL OCCULT BLOOD FECAL OCCULT BLOO D [facility] Start: 1997 SHINGRIX VACCINE (1 of 2) ZURITA GRIX VACCINE (1 of 2) [facility] Start: 1992 COLOGUARD (FIT-DNA) COLOGUARD (FIT-D NA) [facility] Start: [address] COLONOGRAPHY [facility] Start: 1992 SIGMOIDOSCOPY SIGMOIDOSCOPY [facility] Start: 1965 BP CONTROLLED (<130/80) BP CONTROLLE D (<130/80) [facility] Start: 1952 COVID-19 VACCINE (#1) COVID-19 VACCI NE (#1) [facility] Start: 1947 COVID-19 VACCINE (#1) COVID-19 VACCI NE (#1) [facility] Bacteria identified in Blood by Culture BLOOD CULTURE Microbiology Routine Neutrophilia Leukocytosis, unspecified type 06/01/2022 10:26 AM EDT [facility] Work Phone: Bacteria identified in Urine by Culture URINE CULTURE Microbiology Routine Leukocytosis, unspecified type 05/11/2022 4:00 PM EDT [facility] Work Phone: Bacteria identified in Urine by Culture URINE CULTURE Microbiology Routine Vaginal discharge Vaginal itching 08/03/2023 9:45 AM EDT [facility] Work Phone: Bacteria identified in Urine by Culture URINE CULTURE Microbiology Routine Lower abdominal tenderness 09/25/2024 10:28 AM EST [facility] BACTERIAL VAGINOSIS AMPLIFICATION BACTERIAL VAGINOSIS AMPLIFICATION Lab Routine Vaginal irritation 04/13/2022 2:15 PM EDT [facility] Work Phone: BACTERIAL VAGINOSIS NAAT BACTERI AL VAGINOSIS NAAT Lab Routine Vaginal discharge 08/03/2023 9:45 AM EDT [facility] Work Phone: DARON / TRICHOMONA S AMPLIFICATION DARON / TRICHOMONAS AMPLIFICATION Lab Routine Vaginal irritation 04/13/2022 2:15 PM EDT [facility] Work Phone: DARON/TRICHOMONAS NAAT DARON /TRICHOMONAS NAAT Lab Routine Vaginal discharge 08/03/2023 9:45 AM EDT [facility] Work Phone: CBC W Ordered Manual Differential panel - Blood PATHOLOGIST INTERPRETATION WITH CBC AND DIFF Lab Routine Neutrophilia Leukocytosis, unspecified type 06/15/2022 2:11 PM EDT [facility] Work Phone: Comprehensive metabo lic 2000 panel - Serum or Plasma COMPREHENSIVE METABOLIC PANEL Lab Routine Stage 3a chronic kidney disease (HCC) 09/25/2024 9:39 AM EST [facility] End: 06-10-2023 Ct abdomen & pelvis w/o contrast material CT ABD/PEL WO IVCON Radiology STAT Leukocytosis, unspecified type 1 Occurrences starting 05/11/2022 until 06/10/2023 [facility] Work Phone: Comment on above: 1 Occurrences starti ng 05/11/2022 until 06/10/2023 Lipid 1996 panel - S yassine or Plasma LIPID PANEL BASIC Lab Routine Mixed hyperlipidemia 09/25/2024 9:39 AM EST [facility] MR Brain WO and W contrast IV [facility] MR Brain WO contrast [facility] End: 08-19-2023 Mri any jt upper extremity w/o contrast matrl MRI WRIST WO IVCON RT Radiology Routine Right wrist pain 1 Occurrences starting 07/20/2022 until 08/19/2023 [facility] Work Phone: Comment on above: 1 Occurrences starti ng 07/20/2022 until 08/19/2023 Patient Education [facility] Work Phone: Patient referral [facility] Work Phone: End: 11-20-2023 Radiologic exam chest 2 views XR CHEST 2V FRONTAL/LAT Radiology Routine Expiratory wheezing Acute cough 1 Occurrences starting 10/21/2022 until 11/20/2023 [facility] Work Phone: Comment on above: 1 Occurrences starti ng 10/21/2022 until 11/20/2023 Radiologic exam ches t 2 views XR CHEST 2V FRONTAL/LAT Radiology Routine Expiratory wheezing 10/21/2022 9:35 AM EST [facility] Work Phone: T4 free measurement [facility] Triiodothyronine, fr ee measurement [facility] UA DIP, URINE (POC) UA DIP, URIN E (POC) Lab Routine Leukocytosis, unspecified type Ordered: 05/11/2022 [facility] Work Phone: Comment on above: Ordered: 05/11/2022 Urinalysis complete panel - Urine URINALYSIS, WITH MICROSCOPIC Lab Routine Lower abdominal tenderness 09/25/2024 10:28 AM EST [facility] Work Phone: End: 08-30-2025 US Lower extremity vein - right US DVT LOWER RIGHT Radiology JOHN Pain in right lower leg 1 Occurrences starting 07/31/2024 until 08/30/2025 [facility] Work Phone: Comment on above: 1 Occurrences starti ng 07/31/2024 until 08/30/2025 End: 08-16-2023 XR HAND GENERAL 3V PA/LAT/OBL RIGHT XR HAND GENERAL 3V PA/LAT/OBL RIGHT Radiology Routine Wrist pain, right Hand pain, right 1 Occurrences starting 07/17/2022 until 08/16/2023 [facility] Work Phone: Comment on above: 1 Occurrences starti ng 07/17/2022 until 08/16/2023 XR HAND GENERAL 3V PA/LAT/OBL RIGHT XR HAND GENERAL 3V PA/LAT/OBL RIGHT Radiology Routine Wrist pain, right Hand pain, right 07/17/2022 8:40 AM EDT [facility] Work Phone: End: 08-16-2023 XR WRIST GENERAL 3V PA/LAT/OBL RIGHT XR WRIST GENERAL 3V PA/LAT/OBL RIGHT Radiology Routine Wrist pain, right Hand pain, right 1 Occurrences starting 07/17/2022 until 08/16/2023 [facility] Work Phone: Comment on above: 1 Occurrences starti ng 07/17/2022 until 08/16/2023 XR WRIST GENERAL 3V PA/LAT/OBL RIGHT XR WRIST GENERAL 3V PA/LAT/OBL RIGHT Radiology Routine Wrist pain, right Hand pain, right 07/17/2022 8:40 AM EDT [facility] Work Phone: [facility] Immunizations Immunization Date Immunization Notes Care Provider Fa [facility] 10-25-2021 influenza, high-dose , quadrivalent vaccine (FLUZONE HIGH DOSE QUADRIVALENT) Elan Garcia MD Work Phone: [facility] 10-25-2021 influenza virus vaccine, unspecified formulation Edna Loco DIAGNOSTIC CARDIAC SONOGRAPHERMagalieROUNDING MACHINE OPERATOR Work Phone: [facility] 03-01-2020 tetanus toxoid, redu jamaal diphtheria toxoid, and acellular pertussis vaccine, adsorbed Elan Garcia MD Work Phone: [facility] 09-18-2013 influenza virus vaccine, unspecified formulation Elan Garcia MD Work Phone: [facility] 09-18-2013 pneumococcal polysaccharide vaccine, 23 valent Elan Garcia MD Work Phone: [facility] 09-10-2009 influenza virus vaccine, unspecified formulation Elan Garcia MD Work Phone: [facility] Work Phone: 04-22-2009 tetanus and diphther ia toxoids, adsorbed, preservative free, for adult use (2 Lf of tetanus toxoid and 2 Lf of diphtheria toxoid) Elan Garcia MD Work Phone: [facility] 10-25-2008 influenza virus vaccine, unspecified formulation Elan Garcia MD Work Phone: [facility] 09-14-2007 influenza virus vaccine, unspecified formulation Elan Garcia MD Work Phone: [facility] Work Phone: 10-08-2006 influenza virus vaccine, unspecified formulation Elan Garcia MD Work Phone: [facility] 09-25-2005 influenza virus vaccine, unspecified formulation Elan Garcia MD Work Phone: [facility] Work Phone: Payers Date Payer Category Payer Self-pay [id number] 2021 Medicare HUMANA MEDICARE HUMANA MEDICARE PPO [id number] 2021-[facility] [phone] [facility] [id number] [place] [id number] PPO [id number] 2021 Medicare [id number] 2019 Medicare [id number] Medicare [id number] Unknown [id number] Unknown [id number] Unknown [id number] Unknown [id number] Unknown [id number] Unknown [id number] Unknown [id number] Unknown [id number] Unknown [id number] Unknown [id number] Unknown [id number] Social History Date Type Detail Facility Start: 06-02-2011 End: 10-18-2024 Tobacco smoking status NHIS Never smoked tobacco [facility] Start: 03-20-2022 End: 10-27-2024 Alcohol intake Current non-drinker of alcohol (finding) [facility] Start: 1945 Sex Assigned At Not on file [facility] Start: 10-20-2020 End: 10-21-2022 Exposure to SARS-CoV-2 (event) Not sure [facility] Start: 04-30-2022 End: 01-22-2024 Tobacco smoking status VAIS Unknown if ever smoked [facility] Start: 08-19-2018 None [facility] Start: 04-24-2021 Homeless [facility] Start: 07-13-2019 Non-smoker [facility] Start: 1945 Sex Assigned At Female [facility] Start: 06-02-2011 Tobacco use and exposure Smokeless tobacco non-user [facility] Work Phone: Start: 04-12-2023 End: 08-03-2023 History of Social function [facility] Work Phone: Start: 04-12-2023 End: 08-03-2023 Tobacco use panel [facility] Work Phone: Adult Depression Screening Assessment 1 [facility] Work Phone: Start: 06-18-2023 Gender identity Identifies as female gender (finding) [facility] Start: 06-18-2023 Sexual orientation Heterosexual (fin ding) [facility] Functional Status Date Assessment Result Facility 04-02-2023 Functional status Ambulates [facility] Work Phone: Mental Status Date Assessment Result Facility 11-19-2023 Cognitive function Awake;Alert;A ppropriate;Fol lows Commands [facility] Work Phone: 05-21-2023 Cognitive function Awake;Alert;A ppropriate;Fol lows Commands [facility] Work Phone: 04-02-2023 Cognitive function Awake;Alert;A ppropriate;Fol lows Commands [facility] Work Phone: 04-01-2023 Cognitive function Awake;Alert;A ppropriate;Fol lows Commands [facility] Work Phone: 11-10-2022 Cognitive function Voice/Name [facility] Work Phone: 05-12-2022 Cognitive function Voice/Name [facility] Work Phone: Clinical Notes 11-19-2020 to 06-08-2025 Note Date & Type Note Facility 06-08-2025 Radiology Diagnostic study note [facility] [address] [place], [place] [id number] Kidney and Bladder MR#: [id number] Acct: [id number] Name: DORA BRYANT Rep #: [id number] : 1945 F 80 From: Main Capps MD PCP: Dr. Yon Salas MD Status: [facility] Edward IVY Study:Kidney and Bladder Date of Exam: 0 06/08/25 Exam# [id number] Ordering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 04/15/2016 Postinflammatory skin changes 10/07/2012 Pituitary adenoma 08/05/2011 04/22/2021 Cholecystitis 07/15/2011 10/10/2013 Overview: [facility] 02/2011- partial CBD obs s/p lap [...] of this encounter (statuses as of 04/23/2022) [facility] of Past illness Narrative* Problem Noted Date Resolved Date Acute bilateral low back pain without sciatica 0 11/26/2020 01/23/2021 Contact dermatitis and other eczema due to other specified agent 10/07/2012 04/15/2016 Eczematous dermatitis 10/07/2012 04/15/2016 Xerosis cutis 10/07/2012 04/15/2016 Postinflammatory skin changes 10/07/2012 Pituitary adenoma 08/05/2011 04/22/2021 Cholecystitis 07/15/2011 10/10/2013 Overview: [facility] 02/2011- partial CBD obs s/p lap [...] of this encounter (statuses as of 05/04/2022) [facility]01-05-2021 History of Past illness Narrative* Problem Noted Date Resolved Date Acute bilateral low back pain without sciatica 0 11/26/2020 01/23/2021 Contact dermatitis and other eczema due to other specified agent 10/07/2012 04/15/2016 Eczematous dermatitis 10/07/2012 04/15/2016 Xerosis cutis 10/07/2012 04/15/2016 Postinflammatory skin changes 10/07/2012 Pituitary adenoma 08/05/2011 04/22/2021 Cholecystitis 07/15/2011 10/10/2013 Overview: [facility] 02/2011- partial CBD obs s/p lap [...] of this encounter (statuses as of 05/12/2022) [facility]01-05-2021 History of Past illness Narrative* Problem Noted Date Resolved Date Acute bilateral low back pain without sciatica 0 11/26/2020 01/23/2021 Contact dermatitis and other eczema due to other specified agent 10/07/2012 04/15/2016 Eczematous dermatitis 10/07/2012 04/15/2016 Xerosis cutis 10/07/2012 04/15/2016 Postinflammatory skin changes 10/07/2012 Pituitary adenoma 08/05/2011 04/22/2021 Cholecystitis 07/15/2011 10/10/2013 Overview: [facility] 02/2011- partial CBD obs s/p lap [...] of this encounter (statuses as of 05/13/2022) [facility]01-[facility]-2021 History of Past illness Narrative* Problem Noted Date Resolved Date Acute bilateral low back pain without sciatica 0 11/26/2020 01/23/2021 Contact dermatitis and other eczema due to other specified agent 10/07/2012 04/15/2016 Eczematous dermatitis 10/07/2012 04/15/2016 Xerosis cutis 10/07/2012 04/15/2016 Postinflammatory skin changes 10/07/2012 Pituitary adenoma 08/05/2011 04/22/2021 Cholecystitis 07/15/2011 10/10/2013 Overview: [facility] 02/2011- partial CBD obs s/p lap [...] of this encounter (statuses as of 05/13/2022) [facility]01-[facility]21 History of Past illness Narrative* Problem Noted Date Resolved Date Acute bilateral low back pain without sciatica 0 11/26/2020 01/23/2021 Contact dermatitis and other eczema due to other specified agent 10/07/2012 04/15/2016 Eczematous dermatitis 10/07/2012 04/15/2016 Xerosis cutis 10/07/2012 04/15/2016 Postinflammatory skin changes 10/07/2012 Pituitary adenoma 08/05/2011 04/22/2021 Cholecystitis 07/15/2011 10/10/2013 Overview: [facility] 02/2011- partial CBD obs s/p lap [...] of this encounter (statuses as of 05/13/2022) [facility]01-[facility]21 History of Past illness Narrative* Problem Noted Date Resolved Date Acute bilateral low back pain without sciatica 0 11/26/2020 01/23/2021 Contact dermatitis and other eczema due to other specified agent 10/07/2012 04/15/2016 Eczematous dermatitis 10/07/2012 04/15/2016 Xerosis cutis 10/07/2012 04/15/2016 Postinflammatory skin changes 10/07/2012 Pituitary adenoma 08/05/2011 04/22/2021 Cholecystitis 07/15/2011 10/10/2013 Overview: [facility] 02/2011- partial CBD obs s/p lap [...] of this encounter (statuses as of 05/15/2022) [facility]01-[facility]21 History of Past illness Narrative* Problem Noted Date Resolved Date Acute bilateral low back pain without sciatica 0 11/26/2020 01/23/2021 Contact dermatitis and other eczema due to other specified agent 10/07/2012 04/15/2016 Eczematous dermatitis 10/07/2012 04/15/2016 Xerosis cutis 10/07/2012 04/15/2016 Postinflammatory skin changes 10/07/2012 Pituitary adenoma 08/05/2011 04/22/2021 Cholecystitis 07/15/2011 10/10/2013 Overview: [facility] 02/2011- partial CBD obs s/p lap [...] of this encounter (statuses as of 06/01/2022) [facility]01-[facility]21 History of Past illness Narrative* Problem Noted Date Resolved Date Acute bilateral low back pain without sciatica 0 11/26/2020 01/23/2021 Contact dermatitis and other eczema due to other specified agent 10/07/2012 04/15/2016 Eczematous dermatitis 10/07/2012 04/15/2016 Xerosis cutis 10/07/2012 04/15/2016 Postinflammatory skin changes 10/07/2012 Pituitary adenoma 08/05/2011 04/22/2021 Cholecystitis 07/15/2011 10/10/2013 Overview: [facility] 02/2011- partial CBD obs s/p lap [...] of this encounter (statuses as of 06/03/2022) [facility]01-[facility]2021 History of Past illness Narrative* Problem Noted Date Resolved Date Acute bilateral low back pain without sciatica 0 11/26/2020 01/23/2021 Contact dermatitis and other eczema due to other specified agent 10/07/2012 04/15/2016 Eczematous dermatitis 10/07/2012 04/15/2016 Xerosis cutis 10/07/2012 04/15/2016 Postinflammatory skin changes 10/07/2012 Pituitary adenoma 08/05/2011 04/22/2021 Cholecystitis 07/15/2011 10/10/2013 Overview: [facility] 02/2011- partial CBD obs s/p lap [...] of this encounter (statuses as of 06/15/2022) [facility]01-[facility]21 History of Past illness Narrative* Problem Noted Date Resolved Date Acute bilateral low back pain without sciatica 0 11/26/2020 01/23/2021 Contact dermatitis and other eczema due to other specified agent 10/07/2012 04/15/2016 Eczematous dermatitis 10/07/2012 04/15/2016 Xerosis cutis 10/07/2012 04/15/2016 Postinflammatory skin changes 10/07/2012 Pituitary adenoma 08/05/2011 04/22/2021 Cholecystitis 07/15/2011 10/10/2013 Overview: [facility] 02/2011- partial CBD obs s/p lap [...] of this encounter (statuses as of 06/22/2022) [facility]01-[facility]2021 History of Past illness Narrative* Problem Noted Date Resolved Date Acute bilateral low back pain without sciatica 0 11/26/2020 01/23/2021 Contact dermatitis and other eczema due to other specified agent 10/07/2012 04/15/2016 Eczematous dermatitis 10/07/2012 04/15/2016 Xerosis cutis 10/07/2012 04/15/2016 Postinflammatory skin changes 10/07/2012 Pituitary adenoma 08/05/2011 04/22/2021 Cholecystitis 07/15/2011 10/10/2013 Overview: [facility] 02/2011- partial CBD obs s/p lap [...] of this encounter (statuses as of 06/30/2022) [facility]01-[facility]2021 History of Past illness Narrative* Problem Noted Date Resolved Date Acute bilateral low back pain without sciatica 0 11/26/2020 01/23/2021 Contact dermatitis and other eczema due to other specified agent 10/07/2012 04/15/2016 Eczematous dermatitis 10/07/2012 04/15/2016 Xerosis cutis 10/07/2012 04/15/2016 Postinflammatory skin changes 10/07/2012 Pituitary adenoma 08/05/2011 04/22/2021 Cholecystitis 07/15/2011 10/10/2013 Overview: [facility] 02/2011- partial CBD obs s/p lap [...] of this encounter (statuses as of 07/04/2022) [facility]01[facility]21 History of Past illness Narrative* Problem Noted Date Resolved Date Acute bilateral low back pain without sciatica 0 11/26/2020 01/23/2021 Contact dermatitis and other eczema due to other specified agent 10/07/2012 04/15/2016 Eczematous dermatitis 10/07/2012 04/15/2016 Xerosis cutis 10/07/2012 04/15/2016 Postinflammatory skin changes 10/07/2012 Pituitary adenoma 08/05/2011 04/22/2021 Cholecystitis 07/15/2011 10/10/2013 Overview: [facility] 02/2011- partial CBD obs s/p lap [...] of this encounter (statuses as of 07/15/2022) [facility] History of Past illness Narrative* Problem Noted Date Resolved Date Acute bilateral low back pain without sciatica 0 11/26/2020 01/23/2021 Contact dermatitis and other eczema due to other specified agent 10/07/2012 04/15/2016 Eczematous dermatitis 10/07/2012 04/15/2016 Xerosis cutis 10/07/2012 04/15/2016 Postinflammatory skin changes 10/07/2012 Pituitary adenoma 08/05/2011 04/22/2021 Cholecystitis 07/15/2011 10/10/2013 Overview: [facility] 02/2011- partial CBD obs s/p lap [...] of this encounter (statuses as of 07/17/2022) [facility]01[facility] History of Past illness Narrative* Problem Noted Date Resolved Date Acute bilateral low back pain without sciatica 0 11/26/2020 01/23/2021 Contact dermatitis and other eczema due to other specified agent 10/07/2012 04/15/2016 Eczematous dermatitis 10/07/2012 04/15/2016 Xerosis cutis 10/07/2012 04/15/2016 Postinflammatory skin changes 10/07/2012 Pituitary adenoma 08/05/2011 04/22/2021 Cholecystitis 07/15/2011 10/10/2013 Overview: [facility] 02/2011- partial CBD obs s/p lap [...] of this encounter (statuses as of 08/25/2022) [facility]01-[facility]21 History of Past illness Narrative* Problem Noted Date Resolved Date Acute bilateral low back pain without sciatica 0 11/26/2020 01/23/2021 Contact dermatitis and other eczema due to other specified agent 10/07/2012 04/15/2016 Eczematous dermatitis 10/07/2012 04/15/2016 Xerosis cutis 10/07/2012 04/15/2016 Postinflammatory skin changes 10/07/2012 Pituitary adenoma 08/05/2011 04/22/2021 Cholecystitis 07/15/2011 10/10/2013 Overview: [facility] 02/2011- partial CBD obs s/p lap [...] of this encounter (statuses as of 10/21/2022) [facility]01[facility] History of Past illness Narrative* Problem Noted Date Resolved Date Acute bilateral low back pain without sciatica 0 11/26/2020 01/23/2021 Contact dermatitis and other eczema due to other specified agent 10/07/2012 04/15/2016 Eczematous dermatitis 10/07/2012 04/15/2016 Xerosis cutis 10/07/2012 04/15/2016 Postinflammatory skin changes 10/07/2012 Pituitary adenoma 08/05/2011 04/22/2021 Cholecystitis 07/15/2011 10/10/2013 Overview: [facility] 02/2011- partial CBD obs s/p lap [...] of this encounter (statuses as of 10/21/2022) [facility]01[facility] History of Past illness Narrative* Problem Noted Date Resolved Date Acute bilateral low back pain without sciatica 0 11/26/2020 01/23/2021 Contact dermatitis and other eczema due to other specified agent 10/07/2012 04/15/2016 Eczematous dermatitis 10/07/2012 04/15/2016 Xerosis cutis 10/07/2012 04/15/2016 Postinflammatory skin changes 10/07/2012 Pituitary adenoma 08/05/2011 04/22/2021 Cholecystitis 07/15/2011 10/10/2013 Overview: [facility] 02/2011- partial CBD obs s/p lap [...] of this encounter (statuses as of 11/15/2022) [facility]01[facility]21 History of Past illness Narrative* Problem Noted Date Resolved Date Acute bilateral low back pain without sciatica 0 11/26/2020 01/23/2021 Contact dermatitis and other eczema due to other specified agent 10/07/2012 04/15/2016 Eczematous dermatitis 10/07/2012 04/15/2016 Xerosis cutis 10/07/2012 04/15/2016 Postinflammatory skin changes 10/07/2012 Pituitary adenoma 08/05/2011 04/22/2021 Cholecystitis 07/15/2011 10/10/2013 Overview: [facility] 02/2011- partial CBD obs s/p lap [...] of this encounter (statuses as of 02/24/2023) [facility]01[facility] History of Past illness Narrative* Problem Noted Date Resolved Date Acute bilateral low back pain without sciatica 0 11/26/2020 01/23/2021 Contact dermatitis and other eczema due to other specified agent 10/07/2012 04/15/2016 Eczematous dermatitis 10/07/2012 04/15/2016 Xerosis cutis 10/07/2012 04/15/2016 Postinflammatory skin changes 10/07/2012 Pituitary adenoma 08/05/2011 04/22/2021 Cholecystitis 07/15/2011 10/10/2013 Overview: [facility] 02/2011- partial CBD obs s/p lap [...] of this encounter (statuses as of 03/08/2023) [facility]01[facility] History of Past illness Narrative* Problem Noted Date Resolved Date Acute bilateral low back pain without sciatica 0 11/26/2020 01/23/2021 Contact dermatitis and other eczema due to other specified agent 10/07/2012 04/15/2016 Eczematous dermatitis 10/07/2012 04/15/2016 Xerosis cutis 10/07/2012 04/15/2016 Postinflammatory skin changes 10/07/2012 Pituitary adenoma 08/05/2011 04/22/2021 Cholecystitis 07/15/2011 10/10/2013 Overview: [facility] 02/2011- partial CBD obs s/p lap [...] of this encounter (statuses as of 03/17/2023) [facility]01[facility] History of Past illness Narrative* Problem Noted Date Resolved Date Acute bilateral low back pain without sciatica 0 11/26/2020 01/23/2021 Contact dermatitis and other eczema due to other specified agent 10/07/2012 04/15/2016 Eczematous dermatitis 10/07/2012 04/15/2016 Xerosis cutis 10/07/2012 04/15/2016 Postinflammatory skin changes 10/07/2012 Pituitary adenoma 08/05/2011 04/22/2021 Cholecystitis 07/15/2011 10/10/2013 Overview: [facility] 02/2011- partial CBD obs s/p lap [...] of this encounter (statuses as of 05/07/2023) [facility]01[facility] History of Past illness Narrative* Problem Noted Date Diagnosed Date Resolved Date Acute bilateral low back laura n without sciatica 11/26/2020 01/23/2021 Contact dermatitis and other eczema due to other specified agent 10/07/2012 04/15/2016 Eczematous dermatitis 10/07/20122015 Xerosis cutis 10/07/2012 04/15/2016 Postinflammatory skin changes 10/07/2012 04/15/2016 Pituitary adenoma 08/05/2011 04/22/2021 Cholecystitis 07/15/2011 10/10/2013 Overview: [facility] 02/2011- partial CBD obs s/p lap [...] of this encounter (statuses as of 08/03/2023) [facility] History of Past illness Narrative* Problem Noted Date Diagnosed Date Resolved Date Acute bilateral low back laura n without sciatica 11/26/2020 01/23/2021 Contact dermatitis and other eczema due to other specified agent 10/07/2012 04/15/2016 Eczematous dermatitis 10/07/20122015 Xerosis cutis 10/07/2012 04/15/2016 Postinflammatory skin changes 10/07/2012 04/15/2016 Pituitary adenoma 08/05/2011 04/22/2021 Cholecystitis 07/15/2011 10/10/2013 Overview: [facility] 02/2011- partial CBD obs s/p lap [...] of this encounter (statuses as of 08/09/2023) [facility]01[facility] History of Past illness Narrative* Problem Noted Date Diagnosed Date Resolved Date Acute bilateral low back laura n without sciatica 11/26/2020 01/23/2021 Contact dermatitis and other eczema due to other specified agent 10/07/2012 04/15/2016 Eczematous dermatitis 10/07/20122015 Xerosis cutis 10/07/2012 04/15/2016 Postinflammatory skin changes 10/07/2012 04/15/2016 Cholecystitis 07/15/2011 10/10/2013 Overview: [facility] 02/2011- partial CBD obs s/p lap [...] of this encounter (statuses as of 10/08/2023) [facility]01[facility] History of Past illness Narrative* Problem Noted Date Diagnosed Date Resolved Date Acute bilateral low back laura n without sciatica 11/26/2020 01/23/2021 Contact dermatitis and other eczema due to other specified agent 10/07/2012 04/15/2016 Eczematous dermatitis 10/07/20122015 Xerosis cutis 10/07/2012 04/15/2016 Postinflammatory skin changes 10/07/2012 04/15/2016 Cholecystitis 07/15/2011 10/10/2013 Overview: [facility] 02/2011- partial CBD obs s/p lap [...] of this encounter (statuses as of 01/04/2024) [facility] History of Past illness Narrative* Problem Noted Date Diagnosed Date Resolved Date Acute bilateral low back laura n without sciatica 11/26/2020 01/23/2021 Contact dermatitis and other eczema due to other specified agent 10/07/2012 04/15/2016 Eczematous dermatitis 10/07/20122015 Xerosis cutis 10/07/2012 04/15/2016 Postinflammatory skin changes 10/07/2012 04/15/2016 Cholecystitis 07/15/2011 10/10/2013 Overview: [facility] 02/2011- partial CBD obs s/p lap [...] of this encounter (statuses as of 01/05/2024) [facility] History of Past illness Narrative* Problem Noted Date Diagnosed Date Resolved Date Acute bilateral low back laura n without sciatica 11/26/2020 01/23/2021 Contact dermatitis and other eczema due to other specified agent 10/07/2012 04/15/2016 Eczematous dermatitis 10/07/20122015 Xerosis cutis 10/07/2012 04/15/2016 Postinflammatory skin changes 10/07/2012 04/15/2016 Cholecystitis 07/15/2011 10/10/2013 Overview: [facility] 02/2011- partial CBD obs s/p lap [...] of this encounter (statuses as of 01/24/2024) [facility] History of Past illness Narrative* Problem Noted Date Diagnosed Date Resolved Date Acute bilateral low back laura n without sciatica 11/26/2020 01/23/2021 Contact dermatitis and other eczema due to other specified agent 10/07/2012 04/15/2016 Eczematous dermatitis 10/07/20122015 Xerosis cutis 10/07/2012 04/15/2016 Postinflammatory skin changes 10/07/2012 04/15/2016 Cholecystitis 07/15/2011 10/10/2013 Overview: [facility] 02/2011- partial CBD obs s/p lap [...] of this encounter (statuses as of 01/29/2024) [facility] History of Past illness Narrative* Problem Noted Date Diagnosed Date Resolved Date Acute bilateral low back laura n without sciatica 11/26/2020 01/23/2021 Contact dermatitis and other eczema due to other specified agent 10/07/2012 04/15/2016 Eczematous dermatitis 10/07/20122015 Xerosis cutis 10/07/2012 04/15/2016 Postinflammatory skin changes 10/07/2012 04/15/2016 Cholecystitis 07/15/2011 10/10/2013 Overview: [facility] 02/2011- partial CBD obs s/p lap [...] of this encounter (statuses as of 01/31/2024) [facility] History of Past illness Narrative* Problem Noted Date Diagnosed Date Resolved Date Acute bilateral low back laura n without sciatica 11/26/2020 01/23/2021 Contact dermatitis and other eczema due to other specified agent 10/07/2012 04/15/2016 Eczematous dermatitis 10/07/20122015 Xerosis cutis 10/07/2012 04/15/2016 Postinflammatory skin changes 10/07/2012 04/15/2016 Cholecystitis 07/15/2011 10/10/2013 Overview: [facility] 02/2011- partial CBD obs s/p lap [...] of this encounter (statuses as of 02/02/2024) [facility] History of Past illness Narrative* Problem Noted Date Diagnosed Date Resolved Date Acute bilateral low back laura n without sciatica 11/26/2020 01/23/2021 Contact dermatitis and other eczema due to other specified agent 10/07/2012 04/15/2016 Eczematous dermatitis 10/07/20122015 Xerosis cutis 10/07/2012 04/15/2016 Postinflammatory skin changes 10/07/2012 04/15/2016 Cholecystitis 07/15/2011 10/10/2013 Overview: [facility] 02/2011- partial CBD obs s/p lap [...] of this encounter (statuses as of 02/23/2024) [facility] History of Past illness Narrative* Problem Noted Date Diagnosed Date Resolved Date Acute bilateral low back laura n without sciatica 11/26/2020 01/23/2021 Contact dermatitis and other eczema due to other specified agent 10/07/2012 04/15/2016 Eczematous dermatitis 10/07/20122015 Xerosis cutis 10/07/2012 04/15/2016 Postinflammatory skin changes 10/07/2012 04/15/2016 Cholecystitis 07/15/2011 10/10/2013 Overview: [facility] 02/2011- partial CBD obs s/p lap [...] of this encounter (statuses as of 02/28/2024) [facility] History of Present illness Narrative* Lisa [...] 19, 2020 4:41 PM [facility]Dis[facility]. Lux [facility] April 02, 2023 4:12pm Note Date/Time April 02, 2023 3:59p m [facility] Medical Records Department [address] [place] [id number] Discharge Summary 04/02/23 1558 MR#: [id number] Acct: [id number] Name: DORA BRYANT Rep #:[id number] : 1945 77 From: Daan Lux DO PCP: Dr. Pastor Garcia MD Status :ADM SARIHA Location: [place] [address] Providers Date of Admission: 04/01/23 Date of [...] mg/mL subcutaneous syringe (Prolia) 60 mg subcut [id number] #1 mL 04/30/22 levothyroxine 25 mcg tablet [...] who presented to the emergency department at [facility] on 04/01/2023 with visual changes. She has [...] has an eye appointment to see her tool design engineer on Wednesday, April 05 but this worried [...] She does have an appointment with her tool design engineer on Wednesday and I encouraged her to [...] (Auto) 73.0 H, Lymph % (Auto) 18.3 L,Pender % (Auto) 6.7, Eos % (Auto) 0.8, [...] % (Auto) 54.4, Lymph % (Auto) 32.3, Pender % (Auto) 8.3, Eos % (Auto) 3.6, [...] Noe Castro MD at 19:16 EDT , Echocardiogram 04/01/23 22:12 Interpretation Summary The [...] Signed: Noe Castro MD at 15:55 EDT Reading Location ID and State: [facility] / [place] , Service support , Carotid Duplex 04/02/23 07:59 Interpretation Summary [...] Prolia 60 mg/mL syringe 60 mg subcut [id number] Qty: 1 1RF levothyroxine 25 mcg tablet [...] Self Care Charges/Coding Visit Charges Inpatient E&M: 88500 Disch Hosp 04/02/23 1612 <Electronically signed by Dana Lux DO> Cosigner Signature (if applicable): CC: Dr. Pastor Garcia MD; Dr. Zoltan oWrley MD; Dr. Dana Lux DO~ Signed [facility] Work Phone: Evaluation note* Diagnosis Chronic bilateral low back pain without sciatica- Primary Chronic pain of both hips Fall in home, initial encounter [facility] Diagnosis Vaginal irritation- Primary Unspecified noninflammatory disorder of vagina [facility] Hypopituitarism (HCC)- Primary Panhypopituitarism Essential hypertension Unspecified essential hypertension Mixed hyperlipidemia [facility]* Diagnosis Leukocytosis, unspecified type- Primary Abdominal pain, generalized documented [facility] this encounter [facility]* Diagnosis Leukocytosis, unspecified type documented in this encounter [facility]* Diagnosis Neutrophilia- Primary Other specified disease of white blood cells documented in this encounter [facility]* Diagnosis Vaginal disorder- Primary Unspecified noninflammatory disorder of vagina documented [facility] this encounter [facility]* Diagnosis Onset Date Resolution Status History of pituitary tumor c hronic Osteoporosis chronic Secondary adrenal insufficiency chronic Secondary hypothyroidism chr onic [facility] Work Phone: Evaluation note* Diagnosis Neutrophilia- Primary Other specified disease of white blood cells Leukocytosis, unspecified type documented [facility] this encounter [facility]* Diagnosis Leukocytosis, unspecified type- Primary Neutrophilia Other specified disease of white blood cells Essential hypertension Unspecified essential hypertension Mixed hyperlipidemia Hypopituitarism (HCC) Panhypopituitarism Gastroesophageal reflux disease without esophagitis Esophageal reflux Stage 3a chronic kidney disease (HCC) Vaginal irritation Unspecified noninflammatory disorder of vagina documented [facility] this encounter [facility]* Diagnosis Neutrophilia- Primary Other specified disease of white blood cells Leukocytosis, unspecified type documented in this encounter [facility]* Diagnosis Fall, subsequent encounter- Primary Closed fracture of right side of maxilla with routine healing, subsequent encounter Closed fracture of orbit with routine healing, subsequent encounter Laceration of right hand without foreign body, subsequent encounter Facial laceration, subsequent encounter documented in this encounter [facility]* Diagnosis Wrist pain, right- Primary Pain in joint, forearm Hand pain, right Pain in limb Screening mammogram for breast cancer documented in this encounter [facility]* Diagnosis Right wrist pain- Primary Pain in joint, forearm documented [facility] this encounter [facility]* Diagnosis Acute cough- Primary Expiratory wheezing documented in this encounter [facility] noteNo assessment information availableWKettering Health Work Phone: Evaluation note* Diagnosis Hypopituitarism (HCC) Panhypopituitarism Gastroesophageal reflux disease without esophagitis Esophageal reflux documented [facility] this encounter [facility]* Diagnosis Essential hypertension- Primary Unspecified essential hypertension Hypopituitarism (HCC) Panhypopituitarism Glucocorticoid deficiency (HCC) Glucocorticoid deficiency Senile osteoporosis documented [facility] this encounter [facility]* Diagnosis Onset Date Resolution Status Vision abnormalities acute Benign essential hypertension chronic 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 Secondary adrenal insufficiency chronic [facility] Work Phone: Evaluation note* Diagnosis Pituitary adenoma (HCC)- Primary Benign neoplasm of pituitary gland and craniopharyngeal duct (pouch) [facility] Diagnosis Onset Date Resolution Status Vision abnormalities resolve d Glucocorticoid deficiency ch ronic History of pituitary tumor c hronic Osteoporosis chronic Secondary hypothyroidism chr onic [facility] [place] Work Phone: Evaluation note* Diagnosis Vaginal discharge- Primary Leukorrhea, not specified as infective Vaginal itching Pruritus of genital organs [facility] Diagnosis 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 Pain in zurita, right [facility] Diagnosis Colitis- Primary Other and unspecified noninfectious gastroenteritis and colitis Allergic reaction to contrast material, initial encounter Stage 3a chronic kidney disease (HCC) [facility] Diagnosis Daron infection- Primary Candidiasis of unspecified site [facility]* Diagnosis Upper respiratory tract infection, unspecified type- Primary [facility]* Diagnosis Essential hypertension- Primary Unspecified [...] esophagitis Esophageal reflux [facility] Diagnosis Gastroesophageal reflux disease without esophagitis Esophageal reflux [facility]* Diagnosis Fall in home, subsequent encounter- Primary Other fracture of unspecified thoracic vertebra, initial encounter for closed fracture (HCC) Closed fracture of ramus of right pubis with routine healing, subsequent encounter [facility] Diagnosis Fall in home, subsequent encounter- Primary Other fracture of unspecified thoracic vertebra, initial encounter for closed fracture (HCC) Closed fracture of ramus of right pubis with routine healing, subsequent encounter [facility] Diagnosis Fall in home, initial encounter- [...] other specified site [facility] Diagnosis Essential hypertension- Primary Unspecified essential hypertension Stage 3a chronic kidney disease (HCC) Gastroesophageal reflux disease without esophagitis Esophageal reflux Acquired hypothyroidism Unspecified hypothyroidism Hypopituitarism (HCC) Panhypopituitarism [facility] Diagnosis Onset Date Resolution Status Admit Date Glucocorticoid deficiency chronic May 18, 2025 10:45am History of pituitary tumor chronic May 18, 2025 10:45am Osteoporosis chronic May 18, 2 025 10:45am Secondary hypothyroidism chronic May 18, 2025 10:45am [facility] Work Phone: Hospital Discharge instructions Additional Instructions [...] [facility] Reason for referral (narrative)* Diagnostic Procedure Only (Routine) - Pending Review Specialty Diagnoses / Procedures Referred By Mallory lopez Referred To Contact BR IMAGING Diagnoses Screening mammogram for breast cancer Procedures JOON SCREENING SCREENING MAMMOGRAPHY BI 2-VIEW BREAST INC CAD Elan Garcia MD [address] [place] [address] [facility] [address] [place] [address] Referral ID Status Reason Start Date Expiration Date Visits Requested Visits Authorized [id number] Pending Review Auto-Generat ed Referral 08/17/2022 08/16/2023 1 1 * Diagnostic Procedure Only (Routine) - Closed Specialty Diagnoses / Procedures Referred By Mallory lopez Referred To Contact XR IMAGING Diagnoses Wrist pain, right Hand pain, right Procedures XR HAND GENERAL 3V PA/LAT/OBL RIGHT RADEX HAND MINIMUM 3 VIEWS Elan Garcia MD [address] [place] [address] Xr Imaging Referral ID Status Reason Start Date Expiration Date V isits Requested Visits Authorized [id number] Closed Auto-Generate d Referral 07/17/2022 08/16/2023 1 1 * Diagnostic Procedure Only (Routine) - Closed Specialty Diagnoses / Procedures Referred By Contac t Referred To Contact XR IMAGING Diagnoses Wrist pain, right Hand pain, right Procedures XR WRIST GENERAL 3V PA/LAT/OBL RIGHT RADEX WRIST COMPLETE MINIMUM 3 VIEWS Elan Garcia MD [address] [place] [address] Xr Imaging Referral ID Status Reason Start Date Expiration Date V isits Requested Visits Authorized [id number] Closed Auto-Generate d Referral 07/17/2022 08/16/2023 1 1 [facility] for referral (narrative)* Diagnostic Procedure Only (Routine) - Closed Specialty Diagnoses / Procedures Referred By Contac t Referred To Contact XR IMAGING Diagnoses Fall in home, subsequent encounter Closed fracture of ramus of right pubis with routine healing, subsequent encounter Procedures XR HIP GENERAL 3V PELV/AP/LAT RIGHT RADEX HIP UNILATERAL WITH PELVIS 2-3 VIEWS Elan Garcia MD [address] [place] [address] [place] [address] Referral ID Status Reason Start Date Expiration Date V isits Requested Visits Authorized [id number] Closed Auto-Generate d Referral 05/18/2024 06/12/2025 1 1 [facility] for referral (narrative)* Diagnostic Procedure Only (Urgent) - Authorized Specialty Diagnoses / Procedures Referred By Contac t Referred To Contact US IMAGING Diagnoses Pain in right lower leg Procedures US DVT LOWER RIGHT DUP-SCAN XTR VEINS UNILATERAL/LIMITED STUDY PodlogEdna walter APRN.ARACELI [address] [place] [address] [place] [address] Referral ID Status Reason Start Date Expiration Date Visits Requested Visits Authorized [id number] Authorized Auto-Generat ed Referral 07/31/2024 08/30/2025 1 1 [facility] for referral (narrative)* Diagnostic Procedure Only (Routine) - Closed Specialty Diagnoses / Procedures Referred By Contac t Referred To Contact XR IMAGING Diagnoses Chronic bilateral low back pain with right-sided sciatica Procedures XR LUMBAR GENERAL 3V AP/LAT/L5-S1 RADEX SPINE LUMBOSACRAL 2/3 VIEWS Elan Garcia MD [address] [place] [address] [place] [address] Referral ID Status Reason Start Date Expiration Date V isits Requested Visits Authorized [id number] Closed Auto-Generate d Referral 01/05/2024 02/03/2025 1 1 [facility] for referral (narrative)* Diagnostic Procedure Only (Urgent) - Closed Specialty Diagnoses / Procedures Referred By Contac t Referred To Contact US IMAGING Diagnoses Pain in right lower leg Procedures US DVT LOWER RIGHT DUP-SCAN XTR VEINS UNILATERAL/LIMITED STUDY Edna Loco APRN.CNP [address] [place] [address] [place] [address] Referral ID Status Reason Start Date Expiration Date V isits Requested Visits Authorized [id number] Closed Auto-Generate d Referral 07/31/2024 08/30/2025 1 1 [facility] for referral (narrative)* Diagnostic Procedure Only (Routine) - Closed Specialty Diagnoses / Procedures Referred By Contac t Referred To Contact XR IMAGING Diagnoses Rib pain on right side Procedures XR RIBS/CHEST 3V AP RIB/OBLS/CXR RIGHT RADEX RIBS UNI W/POSTEROANT CH MINIMUM 3 VIEWS Elan Garcia MD [address] [place] [address] [place] [address] Referral ID Status Reason Start Date Expiration Date V isits Requested Visits Authorized [id number] Closed Auto-Generate d Referral 12/01/2023 12/30/2024 1 1 [facility] for referral (narrative)* Diagnostic Procedure Only (Routine) - Closed Specialty Diagnoses / Procedures Referred By Contac t Referred To Contact XR IMAGING Diagnoses Wrist pain, right Hand pain, right Procedures XR HAND GENERAL 3V PA/LAT/OBL RIGHT RADEX HAND MINIMUM 3 VIEWS Elan Garcia MD [address] [place] [id number] [place] [address] Referral ID Status Reason Start Date Expiration Date V isits Requested Visits Authorized [id number] Closed Auto-Generate d Referral 07/17/2022 08/16/2023 1 1 * Diagnostic Procedure Only (Routine) - Closed Specialty Diagnoses / Procedures Referred By Contac t Referred To Contact XR IMAGING Diagnoses Wrist pain, right Hand pain, right Procedures XR WRIST GENERAL 3V PA/LAT/OBL RIGHT RADEX WRIST COMPLETE MINIMUM 3 VIEWS Elan Garcia MD [address] [place] [address] [place] [address] Referral ID Status Reason Start Date Expiration Date V isits Requested Visits Authorized [id number] Closed Auto-Generate d Referral 07/17/2022 08/16/2023 1 1 [facility] for referral (narrative)* Diagnostic Procedure Only (Routine) - Closed Specialty Diagnoses / Procedures Referred By Contac t Referred To Contact XR IMAGING Diagnoses Chronic pain of both hips Procedures XR HIP BILATERAL 5V PEL/AP/LAT EACH HIP RADEX HIPS BILATERAL WITH PELVIS MINIMUM 5 VIEWS Elan Garcia MD [address] [place] [address] [place] [address] Referral ID Status Reason Start Date Expiration Date V isits Requested Visits Authorized [id number] Closed Auto-Generate d Referral 03/20/2022 2023 1 1 * Diagnostic Procedure Only (Routine) - Closed Specialty Diagnoses / Procedures Referred By Contac t Referred To Contact XR IMAGING Diagnoses Chronic bilateral low back pain without sciatica Procedures XR LUMBAR GENERAL 3V AP/LAT/L5-S1 RADEX SPINE LUMBOSACRAL 2/3 VIEWS Elan Garcia MD [address] [place] [address] [place] [address] Referral ID Status Reason Start Date Expiration Date V isits Requested Visits Authorized [id number] Closed Auto-Generate d Referral 03/20/2022 2023 1 1 [facility] for referral (narrative)No reason for referral information [facility] Work Phone: [facility] Narrative* Diagnostic Procedure Only (Routine) - Closed Specialty Diagnoses / Procedures Referred By Contac t Referred To Contact XR IMAGING Diagnoses Fall in home, subsequent encounter Closed fracture of ramus of right pubis with routine healing, subsequent encounter Procedures XR HIP GENERAL 3V PELV/AP/LAT RIGHT RADEX HIP UNILATERAL WITH PELVIS 2-3 VIEWS Elan Garcia MD [address] [place] [address] [place] [address] Referral ID Status Reason Start Date Expiration Date V isits Requested Visits Authorized [id number] Closed Auto-Generate d Referral 05/18/2024 06/12/2025 1 1 [facility] for visit Narrative* Diagnostic Procedure Only (Routine) - Closed Specialty Diagnoses / Procedures Referred By Contac t Referred To Contact XR IMAGING Diagnoses Chronic bilateral low back pain with right-sided sciatica Procedures XR LUMBAR GENERAL 3V AP/LAT/L5-S1 RADEX SPINE LUMBOSACRAL 2/3 VIEWS Elan Garcia MD [address] [place] [address] [place] [address] Referral ID Status Reason Start Date Expiration Date V isits Requested Visits Authorized [id number] Closed Auto-Generate d Referral 01/05/2024 02/03/2025 1 1 [facility] for visit Narrative* Diagnostic Procedure Only (Routine) - Closed Specialty Diagnoses / Procedures Referred By Contac t Referred To Contact XR IMAGING Diagnoses Rib pain on right side Procedures XR RIBS/CHEST 3V AP RIB/OBLS/CXR RIGHT RADEX RIBS UNI W/POSTEROANT CH MINIMUM 3 VIEWS Elan Garcia MD [address] [place] [address] [place] [address] Referral ID Status Reason Start Date Expiration Date V isits Requested Visits Authorized [id number] Closed Auto-Generate d Referral 12/01/2023 12/30/2024 1 1 [facility] for visit Narrative* Diagnostic Procedure Only (Routine) - Closed Specialty Diagnoses / Procedures Referred By Contac t Referred To Contact XR IMAGING Diagnoses Wrist pain, right Hand pain, right Procedures XR HAND GENERAL 3V PA/LAT/OBL RIGHT RADEX HAND MINIMUM 3 VIEWS Elan Garcia MD [address] [place] [address] [place] [address] Referral ID Status Reason Start Date Expiration Date V isits Requested Visits Authorized [id number] Closed Auto-Generate d Referral 07/17/2022 08/16/2023 1 1 [facility] for visit Narrative* Diagnostic Procedure Only (Routine) - Closed Specialty Diagnoses / Procedures Referred By Contac t Referred To Contact XR IMAGING Diagnoses Chronic pain of both hips Procedures XR HIP BILATERAL 5V PEL/AP/LAT EACH HIP RADEX HIPS BILATERAL WITH PELVIS MINIMUM 5 VIEWS Elan Garcia MD [address] [place] [address] [place] [address] Referral ID Status Reason Start Date Expiration Date V isits Requested Visits Authorized [id number] Closed Auto-Generate d Referral 03/20/2022 2023 1 1 [facility] Summary Purpose Family History No Family [...] FoundDocuments on File Type Date Recorded 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 Advance Directive(s) 06/23/2019 8:51 AM Advance Directive(s) 10/28/2018 9:24 AM Advance Directive(s) 07/21/2017 9:15 AM Documents on File Type Date Recorded 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 Advance Directive(s) 06/23/2019 8:51 AM Advance Directive(s) 10/28/2018 9:24 AM Advance Directive(s) 07/21/2017 9:15 AM Advance Directive Response Recorded Date/ Time Living Will Yes July 13 9 8:33am Power of Lining Maker Hand Yes July 13 019 8:33am Advance Directive Response Recorded Date/ Time Living Will Yes June 13, 2022 12:22pm Power of Lining Maker Hand Yes June 13 12:22pm Advance Directive Response Recorded Date/ Time Living Will No April 01, 2023 5 :49pm Power of Lining Maker Hand No April 01, 2023 5:49pm Advance Directive Response Recorded Date/ Time Name of Medical Power of Lining Maker Hand ab bryant April 01, 2023 10:20pm Living Will Yes April 01, 2023 1 0:20pm Power of Lining Maker Hand Yes April 01, 2023 10:20pm Advance Directive Response Recorded Date/ Time Living Will Yes April 01, 2023 9 :20pm Power of Lining Maker Hand Yes April 01, 2023 9:20pm Advance Directive Response Recorded Date/ Time Name of Medical Power of Lining Maker Hand Ab Bryant . January 22, 2024 11:01pm Living Will Yes January 22, 2024 11:01pm Power of Lining Maker Hand Yes January 21 11:01pm Advance Directive Response Recorded Date/ Time Living Will No May 11, 2024 4:20am Do you have a Healthcare Power of Lining Maker Hand? No May 11, 2024 4:20am Reason for Referral Specialty Diagnoses / Procedures Referred By Contac t Referred To Contact Pain Management Diagnoses Chronic bilateral low back pain without sciatica Chronic pain of both hips Procedures CONSULT TO PAIN MGT OFFICE/OUTPATIENT [facility] MDM 60-74 MINUTES Elan Garcia MD [address] [place] [address] Referral ID Status Reason Start Date Expiration Date Visits Requested Visits Authorized [id number] Authorized PCP Requested Referral 03/20/2022 03/20/2023 1 1 Specialty Diagnoses / Procedures Referred By Contac t Referred To Contact XR IMAGING Diagnoses Chronic pain of both hips Procedures XR HIP BILATERAL 5V PEL/AP/LAT EACH HIP RADEX HIPS BILATERAL WITH PELVIS MINIMUM 5 VIEWS Elan Garcia MD [address] [place] [address] Xr Imaging Referral ID Status Reason Start Date Expiration Date V isits Requested Visits Authorized [id number] Closed Auto-Generate d Referral 03/20/2022 2023 1 1 Specialty Diagnoses / Procedures Referred By Contac t Referred To Contact XR IMAGING Diagnoses Chronic bilateral low back pain without sciatica Procedures XR LUMBAR GENERAL 3V AP/LAT/L5-S1 RADEX SPINE LUMBOSACRAL 2/3 VIEWS Elan Garcia MD [address] [place] [address] Xr Imaging Referral ID Status Reason Start Date Expiration Date V isits Requested Visits Authorized [id number] Closed Auto-Generate d Referral 03/20/2022 2023 1 1 Specialty Diagnoses / Procedures Referred By Contac t Referred To Contact CT IMAGING Diagnoses Leukocytosis, unspecified type Procedures CT ABD/PEL WO IVCON CT ABD & PELVIS W/O CONTRAST Elan Garcia MD [address] [place] [address] [address] [address] Referral ID Status Reason Start Date Expiration Date Visits Requested Visits Authorized [id number] Pending Review Auto-Genera marily Referral Patient Cleared - Admin/Chair man/Directo r advise to proceed 05/11/2022 06/10/2023 2 2 Referral ID Status Reason Start Date Expiration Date Visits Requested Visits Authorized [id number] Authorized Auto-Generat ed Referral Patient Cleared - Admin/Chairm an/Director advise to proceed 05/12/2022 06/11/2022 2 2 Specialty Diagnoses / Procedures Referred By Contac t Referred To Contact Gynecology Diagnoses Vaginal disorder Procedures CONSULT TO GYNECOLOGY OFFICE/OUTPATIENT [facility] MDM 60-74 MINUTES PodlogEdna walter APRN.CNP [address] [place] [address] Referral ID Status Reason Start Date Expiration Date Visits Requested Visits Authorized [id number] Authorized PCP Requested Referral Auto-Generate d Referral 05/15/2022 05/15/2023 1 1 Specialty Diagnoses / Procedures Referred By Contac t Referred To Contact Hematology Diagnoses Neutrophilia Leukocytosis, unspecified type Procedures CONSULT TO HEMATOLOGY OFFICE/OUTPATIENT [facility] MDM 60-[place] [address] [place] [address] Referral ID Status Reason Start Date Expiration Date Visits Requested Visits Authorized [id number] Authorized PCP Requested Referral 06/03/2022 06/03/2023 1 1 Specialty Diagnoses / Procedures Referred By Contac t Referred To Contact MR IMAGING Diagnoses Right wrist pain Procedures MRI WRIST WO IVCON RT MRI ANY JT UPPER EXTREMITY [place] [address] [place] [address] Mr Imaging Referral ID Status Reason Start Date Expiration Date Visits Requested Visits Authorized [id number] Pending Review Auto-Generat ed Referral 07/20/2022 08/19/2023 1 1 Specialty Diagnoses / Procedures Referred By Contac t Referred To Contact [facility] Diagnoses Chronic bilateral low back pain with right-sided sciatica Procedures CONSULT TO PHYSICAL THERAPY PHYSICAL THERAPY EVALUATION HIGH COMPLEX 45 MINS Elan Garcia MD [address] [place] [address] [facility] [place] [address] [place] [address] Referral ID Status Reason Start Date Expiration Date Visits Requested Visits Authorized [id number] Pending Review Auto-Generat ed Referral 01/05/2024 01/04/2025 1 1 Specialty Diagnoses / Procedures Referred By Contac t Referred To Contact XR IMAGING Diagnoses Chronic bilateral low back pain with right-sided sciatica Procedures XR LUMBAR GENERAL 3V AP/LAT/L5-S1 RADEX SPINE LUMBOSACRAL 2/3 VIEWS Elan Garcia MD [facility] [place] [address] [place] [address] Referral ID Status Reason Start Date Expiration Date V isits Requested Visits Authorized [id number] Closed Auto-Generate d Referral 01/05/2024 02/03/2025 1 [...] COMPLEX 45 MINS Elan Garcia MD [address] [place] [address] [facility] [place] [address] [place] [id number] Referral ID Status Reason Start Date Expiration Date Visits Requested Visits Authorized [id number] Pending Review Auto-Generat ed Referral 05/13/2024 05/13/2025 1 1 Specialty Diagnoses / Procedures Referred By Contac t Referred To Contact XR IMAGING Diagnoses Fall in home, subsequent encounter Closed fracture of ramus of right pubis with routine healing, subsequent encounter Procedures XR HIP GENERAL 3V PELV/AP/LAT RIGHT RADEX HIP UNILATERAL WITH PELVIS 2-3 VIEWS Elan Garcia MD [facility] [place] [address] [place] [address] Referral ID Status Reason Start Date Expiration Date Visits Requested Visits Authorized [id number] Authorized Auto-Generat ed Referral 05/18/2024 06/12/2025 1 [...] Howard, PT, DPT [facility] [place] [address] [place] [address] Referral ID Status Reason Start Date Expiration Date Visits Requested Visits Authorized [id number] Waiting for Online Response PCP Requested Referral Auto-Generate d Referral 06/01/2024 11/21/2024 8 8 Specialty Diagnoses / Procedures Referred By Mallory t Referred To Contact [facility] Diagnoses Acute left-sided low back pain with left-sided sciatica Procedures CONSULT TO PHYSICAL THERAPY PHYSICAL THERAPY EVALUATION HIGH COMPLEX 45 MINS 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, 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 [address] [place] [address] [facility] [address] [address] Referral ID Status Reason Start Date Expiration Date Visits Requested Visits Authorized [id number] Pending Review Auto-Generat ed Referral 09/25/2024 09/25/2025 1 1 Chief Complaint and Reason for Visit Chief Complaint Admit Date 6 M FU May 18, 2025 10:4 5am LOWER BACK PAIN THORACIC AND NECK PAIN J [facility] 2024 4:31pm Reason for Visit Admit Date [...] BACK PAIN THORACIC AND NECK PAIN J une 2024 4:31pm Chronic kidney disease, stage 3a June 042024 9:26am kidney stone protocol June 06, 2025 1: 02pm Chief Complaint Admit Date 6 M FU May 18, 2025 10:4 5am LOWER BACK PAIN THORACIC AND NECK PAIN J une 2024 4:31pm Chronic kidney disease, stage 3a June 042024 9:26am kidney stone protocol June 06, 2025 1: 02pm Chronic kidney disease, stage 3b June 082024 11:41am Chief Complaint Admit Date 6 M FU May 18, 2025 10:4 5am LOWER BACK PAIN THORACIC AND NECK PAIN J une 2024 4:31pm Chronic kidney disease, stage 3a June 042024 9:26am kidney stone protocol June 06, 2025 1: 02pm Chronic kidney disease, stage 3b June 082024 11:41am HISTORY OF PITUITARY TUMOR June 19 12:49pm Additional Source Comments INFORMATION SOURCE (unrecogn ized section and content) DATE CREATED AUTHOR 11/01/2018 [facility] DATE CREATED AUTHOR AUTHOR'S ORGANIZ ATION 12/14/2024 [facility] DATE CREATED AUTHOR AUTHOR'S ORGANIZ ATION 07/18/2025 [facility] Source Comments (unrecognize d section and content) In the event this informatio n is protected by the Federal Confidentiality of Alcohol and Drug Abuse Patient Records regulations: The Federal rules restrict any use of the information to criminally investigate or prosecute any alcohol or drug abuse patient.[facility] the event this information is protected by the Federal Confidentiality of Alcohol and Drug Abuse Patient Records regulations: The Federal rules restrict any use of the information to criminally investigate or prosecute any alcohol or drug abuse patient.[facility] the event this information is protected by the Federal Confidentiality of Alcohol and Drug Abuse Patient Records regulations: The Federal rules restrict any use of the information to criminally investigate or prosecute any alcohol or drug abuse patient.[facility] the event this information is protected by the Federal Confidentiality of Alcohol and Drug Abuse Patient Records regulations: The Federal rules restrict any use of the information to criminally investigate or prosecute any alcohol or drug abuse patient.[facility] the event this information is protected by the Federal Confidentiality of Alcohol and Drug Abuse Patient Records regulations: The Federal rules restrict any use of the information to criminally investigate or prosecute any alcohol or drug abuse patient.[facility] the event this information is protected by the Federal Confidentiality of Alcohol and Drug Abuse Patient Records regulations: The Federal rules restrict any use of the information to criminally investigate or prosecute any alcohol or drug abuse patient.[facility] the event this information is protected by the Federal Confidentiality of Alcohol and Drug Abuse Patient Records regulations: The Federal rules restrict any use of the information to criminally investigate or prosecute any alcohol or drug abuse patient.[facility] the event this information is protected by the Federal Confidentiality of Alcohol and Drug Abuse Patient Records regulations: The Federal rules restrict any use of the information to criminally investigate or prosecute any alcohol or drug abuse patient.[facility] the event this information is protected by the Federal Confidentiality of Alcohol and Drug Abuse Patient Records regulations: The Federal rules restrict any use of the information to criminally investigate or prosecute any alcohol or drug abuse patient.[facility] the event this information is protected by the Federal Confidentiality of Alcohol and Drug Abuse Patient Records regulations: The Federal rules restrict any use of the information to criminally investigate or prosecute any alcohol or drug abuse patient.[facility]In the event this information is protected by the Federal Confidentiality of Alcohol and Drug Abuse Patient Records regulations: The Federal rules restrict any use of the information to criminally investigate or prosecute any alcohol or drug abuse patient.[facility]In the event this information is protected by the Federal Confidentiality of Alcohol and Drug Abuse Patient Records regulations: The Federal rules restrict any use of the information to criminally investigate or prosecute any alcohol or drug abuse patient.[facility] HospitalIn the event this information is protected by the Federal Confidentiality of Alcohol and Drug Abuse Patient Records regulations: The Federal rules restrict any use of the information to criminally investigate or prosecute any alcohol or drug abuse patient.[facility]In the event this information is protected by the Federal Confidentiality of Alcohol and Drug Abuse Patient Records regulations: The Federal rules restrict any use of the information to criminally investigate or prosecute any alcohol or drug abuse patient.[facility] HospitalIn the event this information is protected by the Federal Confidentiality of Alcohol and Drug Abuse Patient Records regulations: The Federal rules restrict any use of the information to criminally investigate or prosecute any alcohol or drug abuse patient.[facility] HospitalIn the event this information is protected by the Federal Confidentiality of Alcohol and Drug Abuse Patient Records regulations: The Federal rules restrict any use of the information to criminally investigate or prosecute any alcohol or drug abuse patient.[facility] HospitalIn the event this information is protected by the Federal Confidentiality of Alcohol and Drug Abuse Patient Records regulations: The Federal rules restrict any use of the information to criminally investigate or prosecute any alcohol or drug abuse patient.[facility] HospitalIn the event this information is protected by the Federal Confidentiality of Alcohol and Drug Abuse Patient Records regulations: The Federal rules restrict any use of the information to criminally investigate or prosecute any alcohol or drug abuse patient.[facility] HospitalIn the event this information is protected by the Federal Confidentiality of Alcohol and Drug Abuse Patient Records regulations: The Federal rules restrict any use of the information to criminally investigate or prosecute any alcohol or drug abuse patient.[facility] HospitalIn the event this information is protected by the Federal Confidentiality of Alcohol and Drug Abuse Patient Records regulations: The Federal rules restrict any use of the information to criminally investigate or prosecute any alcohol or drug abuse patient.[facility] HospitalIn the event this information is protected by the Federal Confidentiality of Alcohol and Drug Abuse Patient Records regulations: The Federal rules restrict any use of the information to criminally investigate or prosecute any alcohol or drug abuse patient.[facility] HospitalIn the event this information is protected by the Federal Confidentiality of Alcohol and Drug Abuse Patient Records regulations: The Federal rules restrict any use of the information to criminally investigate or prosecute any alcohol or drug abuse patient.[facility] HospitalIn the event this information is protected by the Federal Confidentiality of Alcohol and Drug Abuse Patient Records regulations: The Federal rules restrict any use of the information to criminally investigate or prosecute any alcohol or drug abuse patient.[facility] HospitalIn the event this information is protected by the Federal Confidentiality of Alcohol and Drug Abuse Patient Records regulations: The Federal rules restrict any use of the information to criminally investigate or prosecute any alcohol or drug abuse patient.[facility] HospitalIn the event this information is protected by the Federal Confidentiality of Alcohol and Drug Abuse Patient Records regulations: The Federal rules restrict any use of the information to criminally investigate or prosecute any alcohol or drug abuse patient.[facility] HospitalIn the event this information is protected by the Federal Confidentiality of Alcohol and Drug Abuse Patient Records regulations: The Federal rules restrict any use of the information to criminally investigate or prosecute any alcohol or drug abuse patient.[facility] HospitalIn the event this information is protected by the Federal Confidentiality of Alcohol and Drug Abuse Patient Records regulations: The Federal rules restrict any use of the information to criminally investigate or prosecute any alcohol or drug abuse patient.[facility] HospitalIn the event this information is protected by the Federal Confidentiality of Alcohol and Drug Abuse Patient Records regulations: The Federal rules restrict any use of the information to criminally investigate or prosecute any alcohol or drug abuse patient.[facility] HospitalIn the event this information is protected by the Federal Confidentiality of Alcohol and Drug Abuse Patient Records regulations: The Federal rules restrict any use of the information to criminally investigate or prosecute any alcohol or drug abuse patient.[facility] HospitalIn the event this information is protected by the Federal Confidentiality of Alcohol and Drug Abuse Patient Records regulations: The Federal rules restrict any use of the information to criminally investigate or prosecute any alcohol or drug abuse patient.[facility] HospitalIn the event this information is protected by the Federal Confidentiality of Alcohol and Drug Abuse Patient Records regulations: The Federal rules restrict any use of the information to criminally investigate or prosecute any alcohol or drug abuse patient.[facility] HospitalIn the event this information is protected by the Federal Confidentiality of Alcohol and Drug Abuse Patient Records regulations: The Federal rules restrict any use of the information to criminally investigate or prosecute any alcohol or drug abuse patient.[facility] HospitalIn the event this information is protected by the Federal Confidentiality of Alcohol and Drug Abuse Patient Records regulations: The Federal rules restrict any use of the information to criminally investigate or prosecute any alcohol or drug abuse patient.[facility] HospitalIn the event this information is protected by the Federal Confidentiality of Alcohol and Drug Abuse Patient Records regulations: The Federal rules restrict any use of the information to criminally investigate or prosecute any alcohol or drug abuse patient.[facility] HospitalIn the event this information is protected by the Federal Confidentiality of Alcohol and Drug Abuse Patient Records regulations: The Federal rules restrict any use of the information to criminally investigate or prosecute any alcohol or drug abuse patient.[facility] HospitalIn the event this information is protected by the Federal Confidentiality of Alcohol and Drug Abuse Patient Records regulations: The Federal rules restrict any use of the information to criminally investigate or prosecute any alcohol or drug abuse patient.[facility] HospitalIn the event this information is protected by the Federal Confidentiality of Alcohol and Drug Abuse Patient Records regulations: The Federal rules restrict any use of the information to criminally investigate or prosecute any alcohol or drug abuse patient.[facility] the event this information is protected by the Federal Confidentiality of Alcohol and Drug Abuse Patient Records regulations: The Federal rules restrict any use of the information to criminally investigate or prosecute any alcohol or drug abuse patient.[facility] HospitalIn the event this information is protected by the Federal Confidentiality of Alcohol and Drug Abuse Patient Records regulations: The Federal rules restrict any use of the information to criminally investigate or prosecute any alcohol or drug abuse patient.[facility] HospitalIn the event this information is protected [...] or prosecute any alcohol or drug abuse patient.[facility] HospitalIn the event this information is protected by the Federal Confidentiality of Alcohol and Drug Abuse Patient Records regulations: The Federal rules restrict any use of the information to criminally investigate or prosecute any alcohol or drug abuse patient.[facility] HospitalIn the event this information is protected by the Federal Confidentiality of Alcohol and Drug Abuse Patient Records regulations: The Federal rules restrict any use of the information to criminally investigate or prosecute any alcohol or drug abuse patient.[facility] HospitalIn the event this information is protected by the Federal Confidentiality of Alcohol and Drug Abuse Patient Records regulations: The Federal rules restrict any use of the information to criminally investigate or prosecute any alcohol or drug abuse patient.[facility] HospitalIn the event this information is protected by the Federal Confidentiality of Alcohol and Drug Abuse Patient Records regulations: The Federal rules restrict any use of the information to criminally investigate or prosecute any alcohol or drug abuse patient.[facility] HospitalIn the event this information is protected by the Federal Confidentiality of Alcohol and Drug Abuse Patient Records regulations: The Federal rules restrict any use of the information to criminally investigate or prosecute any alcohol or drug abuse patient.[facility] HospitalIn the event this information is protected by the Federal Confidentiality of Alcohol and Drug Abuse Patient Records regulations: The Federal rules restrict any use of the information to criminally investigate or prosecute any alcohol or drug abuse patient.[facility] HospitalIn the event this information is protected by the Federal Confidentiality of Alcohol and Drug Abuse Patient Records regulations: The Federal rules restrict any use of the information to criminally investigate or prosecute any alcohol or drug abuse patient.[facility] HospitalIn the event this information is protected by the Federal Confidentiality of Alcohol and Drug Abuse Patient Records regulations: The Federal rules restrict any use of the information to criminally investigate or prosecute any alcohol or drug abuse patient.[facility] HospitalIn the event this information is protected by the Federal Confidentiality of Alcohol and Drug Abuse Patient Records regulations: The Federal rules restrict any use of the information to criminally investigate or prosecute any alcohol or drug abuse patient.[facility] HospitalIn the event this information is protected by the Federal Confidentiality of Alcohol and Drug Abuse Patient Records regulations: The Federal rules restrict any use of the information to criminally investigate or prosecute any alcohol or drug abuse patient.[facility] HospitalIn the event this information is protected by the Federal Confidentiality of Alcohol and Drug Abuse Patient Records regulations: The Federal rules restrict any use of the information to criminally investigate or prosecute any alcohol or drug abuse patient.[facility] HospitalIn the event this information is protected by the Federal Confidentiality of Alcohol and Drug Abuse Patient Records regulations: The Federal rules restrict any use of the information to criminally investigate or prosecute any alcohol or drug abuse patient.[facility] HospitalIn the event this information is protected by the Federal Confidentiality of Alcohol and Drug Abuse Patient Records regulations: The Federal rules restrict any use of the information to criminally investigate or prosecute any alcohol or drug abuse patient.[facility] HospitalIn the event this information is protected by the Federal Confidentiality of Alcohol and Drug Abuse Patient Records regulations: The Federal rules restrict any use of the information to criminally investigate or prosecute any alcohol or drug abuse patient.[facility] HospitalIn the event this information is protected by the Federal Confidentiality of Alcohol and Drug Abuse Patient Records regulations: The Federal rules restrict any use of the information to criminally investigate or prosecute any alcohol or drug abuse patient.[facility] HospitalIn the event this information is protected by the Federal Confidentiality of Alcohol and Drug Abuse Patient Records regulations: The Federal rules restrict any use of the information to criminally investigate or prosecute any alcohol or drug abuse patient.[facility] HospitalIn the event this information is protected by the Federal Confidentiality of Alcohol and Drug Abuse Patient Records regulations: The Federal rules restrict any use of the information to criminally investigate or prosecute any alcohol or drug abuse patient.[facility] HospitalIn the event this information is protected by the Federal Confidentiality of Alcohol and Drug Abuse Patient Records regulations: The Federal rules restrict any use of the information to criminally investigate or prosecute any alcohol or drug abuse patient.[facility] HospitalIn the event this information is protected by the Federal Confidentiality of Alcohol and Drug Abuse Patient Records regulations: The Federal rules restrict any use of the information to criminally investigate or prosecute any alcohol or drug abuse patient.[facility] HospitalIn the event this information is protected by the Federal Confidentiality of Alcohol and Drug Abuse Patient Records regulations: The Federal rules restrict any use of the information to criminally investigate or prosecute any alcohol or drug abuse patient.[facility] HospitalIn the event this information is protected by the Federal Confidentiality of Alcohol and Drug Abuse Patient Records regulations: The Federal rules restrict any use of the information to criminally investigate or prosecute any alcohol or drug abuse patient.[facility] HospitalIn the event this information is protected by the Federal Confidentiality of Alcohol and Drug Abuse Patient Records regulations: The Federal rules restrict any use of the information to criminally investigate or prosecute any alcohol or drug abuse patient.[facility] HospitalIn the event this information is protected by the Federal Confidentiality of Alcohol and Drug Abuse Patient Records regulations: The Federal rules restrict any use of the information to criminally investigate or prosecute any alcohol or drug abuse patient.[facility] HospitalIn the event this information is protected by the Federal Confidentiality of Alcohol and Drug Abuse Patient Records regulations: The Federal rules restrict any use of the information to criminally investigate or prosecute any alcohol or drug abuse patient.[facility] HospitalIn the event this information is protected by the Federal Confidentiality of Alcohol and Drug Abuse Patient Records regulations: The Federal rules restrict any use of the information to criminally investigate or prosecute any alcohol or drug abuse patient.[facility] HospitalIn the event this information is protected by the Federal Confidentiality of Alcohol and Drug Abuse Patient Records regulations: The Federal rules restrict any use of the information to criminally investigate or prosecute any alcohol or drug abuse patient.[facility] Reason for Visit (unrecogniz ed section [...] & PELVIS W/O CONTRAST Elan Garcia MD [address] [place] [address] Ct Imaging Referral ID Status Reason Start Date Expiration Date Visits Requested Visits Authorized [id number] Authorized Auto-Generat ed Referral Patient Cleared - Admin/Chairm an/Director advise to proceed 05/12/2022 06/11/2022 2 2 Reason Comments Orders Reason Comments F/U 6 months Reason Comments New Patient Evaluation Specialty Diagnoses / Procedures Referred By Contac t Referred To Contact Hematology Diagnoses Neutrophilia Leukocytosis, unspecified type Procedures CONSULT TO HEMATOLOGY OFFICE/OUTPATIENT NEW HIGH MDM 60-74 MINUTES Elan Garcia MD [address] [place] [address] Referral ID Status Reason Start Date Expiration Date V isits Requested Visits Authorized [id number] Closed PCP Requested Referral 06/03/2022 06/03/2023 1 [...] Nausea Reason Comments ER F/U COLITIS last Satur y 01/22/24 rectal bleeding Reason Comments rectal [...] COMPLEX 45 MINS Elan Garcia MD [address] [place] [id number] [facility] [address] [address] Referral ID Status Reason Start Date Expiration Date V isits Requested Visits Authorized [id number] Closed Auto-Generate d Referral 11/22/2023 11/21/2024 1 [...] EA 15 MIN. Jg Howard, PT, DPT [facility] [address] [address] Referral ID Status Reason Start Date Expiration Date Visits Requested Visits Authorized [id number] Authorized PCP Requested Referral Auto-Generate d Referral [...] RIGHT DUP-SCAN XTR VEINS UNILATERAL/LIMITED STUDY [employer] APRN.ARACELI [address] [place] [address] [place] [address] Referral ID Status Reason Start Date Expiration Date V isits Requested Visits Authorized [id number] Closed Auto-Generate d Referral 07/31/2024 08/30/2025 1 1 Reason Onset Date Comments Refill Request 08/23/2024 Reason Comments Follow Up 6 month Reason Comments Recheck Low back pain Reason Comments Follow Up Reason Onset Date Comments Population Health Navigation Outreach 11/13/2024 [employer] AW[employer] Initiative Reason Comments Medication Question Care Teams (unrecognized sec tion and content) Tractor Operator Helper Relationship Specialty Start Date End Date Elan Garcia MD [address] [place] [address] PCP - General Family Practice 10/23/20 Tractor Operator Helper Relationship Specialty Start Date End Date Elan Garcia MD [address] [place] [address] PCP - General Family Practice 10/23/20 Tractor Operator Helper Relationship Specialty Start Date End Date Elan Garcia MD [address] [place] [address] PCP - General Family Practice 10/23/20 Tractor Operator Helper Relationship Specialty Start Date End Date Elan Garcia MD [address] [place] [address] PCP - General Family Practice 10/23/20 Tractor Operator Helper Relationship Specialty Start Date End Date Elan Garcia MD [address] [place] [address] PCP - General Family Practice 10/23/20 Tractor Operator Helper Relationship Specialty Start Date End Date Elan Garcia MD [address] [place] [address] PCP - General Family Practice 10/23/20 Tractor Operator Helper Relationship Specialty Start Date End Date Elan Garcia MD [address] [place] [address] PCP - General Family Practice 10/23/20 Tractor Operator Helper Relationship Specialty Start Date End Date Elan Garcia MD [address] [place] [address] PCP - General Family Practice 10/23/20 Tractor Operator Helper Relationship Specialty Start Date End Date Elan Garcia MD [address] [place] [address] PCP - General Family Practice 10/23/20 Tractor Operator Helper Relationship Specialty Start Date End Date Elan Garcia MD [address] [place] [address] PCP - General Family Practice 10/23/20 Tractor Operator Helper Relationship Specialty Start Date End Date Elan Garcia MD [address] [place] [address] PCP - General Family Practice 10/23/20 Tractor Operator Helper Relationship Specialty Start Date End Date Elan Garcia MD [address] [place] [address] PCP - General Family Practice 10/23/20 Tractor Operator Helper Relationship Specialty Start Date End Date Elan Garcia MD [address] [place] [address] PCP - General Family Practice 10/23/20 Tractor Operator Helper Relationship Specialty Start Date End Date Elan Garcia MD [address] [place] [address] PCP - General Family Medicine 10/23/20 Tractor Operator Helper Relationship Specialty Start Date End Date Elan Garcia MD [address] [place] [address] PCP - General Family Medicine 10/23/20 Tractor Operator Helper Relationship Specialty Start Date End Date Elan Garcia MD [address] [place] [address] PCP - General Family Medicine 10/23/20 Tractor Operator Helper Relationship Specialty Start Date End Date Elan Garcia MD [address] [place] [address] PCP - General Family Medicine 10/23/20 Tractor Operator Helper Relationship Specialty Start Date End Date Elan Garcia MD [address] [place] [address] PCP - General Family Medicine 10/23/20 Tractor Operator Helper Relationship Specialty Start Date End Date Elan Garcia MD [address] [place] [address] PCP - General Family Medicine 10/23/20 Team [...] Dr. Dana Lux DO Attending Provider Active Tractor Operator Helper Relationship Specialty Start Date End Date Elan Garcia MD [address] [place], [place] [address] PCP - General Family Medicine 10/23/20 Team [...] Provider, Referring Provi cresencio Active Alejandra Ascencio NP-C Other Provider Active Tractor Operator Helper Relationship Specialty Start Date End Date Elan Garcia MD [address] [place], [place] [address] PCP - General Family Medicine 10/23/20 Tractor Operator Helper Relationship Specialty Start Date End Date Elan Garcia MD [address] [place], [place] [id number] PCP - General Family Medicine 10/23/20 Tractor Operator Helper Relationship Specialty Start Date End Date Elan Garcia MD [address] [place], [place] [id number] PCP - General Family Medicine 10/23/20 Team Status: Inactive Member Role Status Dates Dr. Pastor Garcia MD Primary Care Provider Acti ve Dr. Juan Liu MD Attending Provider Active Team Status: Inactive Member Role Status Dates Dr. Pastor Garcia MD Primary Care Provider Acti ve Dr. Kyle Torres DO Emergency Provider Active Tractor Operator Helper Relationship Specialty Start Date End Date Elan Garcia MD [address] [place] [address] PCP - General Family Medicine 10/23/20 Tractor Operator Helper Relationship Specialty Start Date End Date Elan Garcia MD [address] [place] [address] PCP - General Family Medicine 10/23/20 Tractor Operator Helper Relationship Specialty Start Date End Date Elan Garcia MD [address] [place] [address] PCP - General Family Medicine 10/23/20 Tractor Operator Helper Relationship Specialty Start Date End Date Elan Garcia MD [address] [place] [address] PCP - General Family Medicine 10/23/20 Tractor Operator Helper Relationship Specialty Start Date End Date Elan Garcia MD [address] [place] [address] PCP - General Family Medicine 10/23/20 Tractor Operator Helper Relationship Specialty Start Date End Date Elan Garcia MD [address] [place] [address] PCP - General Family Medicine 10/23/20 Tractor Operator Helper Relationship Specialty Start Date End Date Elan Garcia MD [address] [place] [address] PCP - General Family Medicine 10/23/20 Tractor Operator Helper Relationship Specialty Start Date End Date Elan Garcia MD [address] [place] [address] PCP - General Family Medicine 10/23/20 Tractor Operator Helper Relationship Specialty Start Date End Date Elan Garcia MD [address] [place] [address] PCP - General Family Medicine 10/23/20 Tractor Operator Helper Relationship Specialty Start Date End Date Elan Garcia MD [address] [place] [address] PCP - General Family Medicine 10/23/20 Tractor Operator Helper Relationship Specialty Start Date End Date Elan Garcia MD [address] [place] [address] PCP - General Family Medicine 10/23/20 Tractor Operator Helper Relationship Specialty Start Date End Date Elan Garcia MD [address] [place] [address] PCP - General Family Medicine 10/23/20 Tractor Operator Helper Relationship Specialty Start Date End Date Elan Garcia MD [address] [place] [address] PCP - General Family Medicine 10/23/20 Tractor Operator Helper Relationship Specialty Start Date End Date Elan Garcia MD [address] [place] [address] PCP - General Family Medicine 10/23/20 Tractor Operator Helper Relationship Specialty Start Date End Date Elan Garcia MD [address] [place] [address] PCP - General Family Medicine 10/23/20 Tractor Operator Helper Relationship Specialty Start Date End Date Elan Garcia MD [address] [place] [address] PCP - General Family Medicine 10/23/20 Tractor Operator Helper Relationship Specialty Start Date End Date Elan Garcia MD [address] [place] [address] PCP - General Family Medicine 10/23/20 Tractor Operator Helper Relationship Specialty Start Date End Date Elan Garcia MD [address] [place] [address] PCP - General Family Medicine 10/23/20 Tractor Operator Helper Relationship Specialty Start Date End Date Elan Garcia MD [address] [place] [address] PCP - General Family Medicine 10/23/20 Tractor Operator Helper Relationship Specialty Start Date End Date Elan Garcia MD [address] [place] [address] PCP - General Family Medicine 10/23/20 Tractor Operator Helper Relationship Specialty Start Date End Date Elan Garcia MD [address] [place] [address] PCP - General Family Medicine 10/23/20 Tractor Operator Helper Relationship Specialty Start Date End Date Elan Garcia MD [address] [place] [address] PCP - General Family Medicine 10/23/20 Tractor Operator Helper Relationship Specialty Start Date End Date Elan Garcia MD [address] [place], [place] [id number] PCP - General Family Medicine 10/23/20 Podlogar, LOAN BishopN.ROUNDING MACHINE OPERATOR [address] [place], [place] [id number] Marine Architect Family [facility] 10/28/24 Tractor Operator Helper Relationship Specialty Start Date End Date Elan Garcia MD [address] [place], [place] [id number] PCP - General Family Medicine 10/23/20 Podlogar, LOAN BishopN.ROUNDING MACHINE OPERATOR [address] [place] [address] [facility] Tractor Operator Helper Relationship Specialty Start Date End Date Elan Garcia MD [address] [place], [place] [id number] PCP - General Family Medicine 10/23/20 Podlogar, Edna, DIAGNOSTIC CARDIAC SONOGRAPHER.ROUNDING MACHINE OPERATOR [address] [place], [place] [id number] [facility]24 Team Status: Active Member Role/Relationship [...] June 08, 2025 End: June 08, 2025 Team Status: Inactive Member Role/Relationship Status Dates Dr. Yon Salas MD Primary Care Provider Active Start: June 19, 2025 End: June 19, 2025 Dr. Lei Sung MD Attending Provider Active Sta rt: June 19, 2025 End: June 19, 2025 Dr. Lei Sung MD Referring Provider Active Sta rt: June 19, 2025 End: June 19, 2025 Team Status: Inactive Member Role/Relationship Status Dates Dr. Yon Salas MD Primary Care Provider Active Start: July 10, 2025 End: July 10, 2025 Dr. Yon Salas MD Attending Provider Active Start: July 10, 2025 End: July 10, 2025 Goals (unrecognized section and content) Goals [...] BE BASED ON THE PRIMARY CLINICAL RECORDS. [employer] provides no warranty or guarantee of the accuracy or completeness of information in this document.
[2025-10-27 08:31] LABS: Red Blood Cells-Urine 0-5 SEEN /hpf (0-5); Squamous Epithelial Cells - UA 0-5 SEEN /hpf (5-10)
[2025-10-27] MEDS: 0.9% Normal Saline (1000mL) 1,000 ML 999 ML IV (08:55)
[2025-10-27 09:08] LABS: Hematocrit 44.6 % (37-47); Hemoglobin 14.8 g/dL (12.0-15.0); Immature Granulocytes Count 0.040 X10^3/uL (0.0-0.0); Mean Corp Hgb Conc 33.2 g/dL (32-36); Mean Corpuscular Volume 93.9 fL (81-99); Mean Platelet Vol. 9.9 fl (6.2-12.0); NRBC Flagged by Analyzer 0 % (0-5); Platelet Count 260 K/mm3 (150-450); RBC Distribution Width CV 14.2 % (11.6-14.6); RBC Distribution Width SD 49.3 fl (35.1-43.9); Red Blood Count 4.75 M/mm3 (4.2-5.4); White Blood Count 9.9 K/mm3 (4.4-11.0)
[2025-10-27 09:43] LABS: AST(SGOT) 20 U/L (<=31); Alanine Aminotransfer ALT/SGPT 13 U/L (<=34); Albumin, Serum 4.2 g/dL (3.4-4.8); Alkaline Phosphatase 86 U/L (35-104); Anion Gap 10 (5-15); BUN 25 mg/dL (4-19); BUN/Creat Ratio 25.6 RATIO (10-20); Calcium,Total 8.6 mg/dL (7.6-11.0); Carbon Dioxide 21.6 mmol/L (21.0-32.0); Chloride 106 mmol/L (98-108); Estimated Creatinine Clearance 36.92 ml/min (50-250); Globulin 2.5 g/dL (2.2-4.2); Glucose 91 mg/dL (70-99); Lipase 86 U/L (13-75); Potassium 4.4 mmol/L (3.3-5.1)
[2025-10-27 10:00] VITALS: BP 147/63; PULSE 88; RESP 16; O2SAT 98
--- NOTE | 2025-10-27 10:15 | CT_ITS ---
PROCEDURE: ABDOMEN/PELVIS W IV CONT ONLY 10/27/2025 REASON FOR EXAM: N/V/D, R ABD TENDERNESS TECHNIQUE: Procedure Code: [id number] Modality: CT Procedure: ABDOMEN/PELVIS W IV CONT ONLY Coronal and Sagittal reconstruction series were provided. CONTRAST: Isovue 370 VOLUME: 75 mL One or more dose reduction techniques were used (e.g., Automated exposure control, adjustment of the mA and/or kV according to patient size, use of iterative reconstruction technique. RADIATION DOSE SUMMARY: CTDlvol: 9.55 mGy DLP: 452.36 mGycm COMPARISON: CT abdomen and pelvis June 06, 2025. FINDINGS: Lung bases: Clear. Liver: Unremarkable. Gallbladder: Cholecystectomy. Spleen: Unremarkable. Pancreas: Unremarkable. Adrenals: Unremarkable. Kidneys: Bilateral simple kidney cysts with the largest measures 1.5 cm at the midpole of the right kidney. No hydronephrosis. Bladder: Unremarkable Reproductive Organs: Unremarkable. Bowel: Dilated bowel loops with fluid concerning for enteritis. Scattered colonic diverticulosis. Appendix: Unremarkable. Lymph nodes: No lymphadenopathy. Vasculature: No aneurysm. Atherosclerotic calcifications. Peritoneum / Retroperitoneum: No free air or free fluid. Bones: No acute bony abnormalities. CT/Abdomen/Pelvis W IV Cont ONLY IMPRESSION: Dilated bowel loops with fluid concerning for enteritis. Scattered colonic div erticulosis. Reading Location: [id number]
[2025-10-27 12:00] VITALS: BP 119/61; PULSE 72; RESP 16; O2SAT 99
[2025-10-27 12:49] VITALS: BP 120/68; PULSE 66; RESP 16; TEMP 36.6; O2SAT 99
== END 2025-10-27 12:50 | disposition home or self-care (01) ==
PROVIDERS: Emergency Provider Emergency Medicine; PCP Family Medicine Geriatric Medicine; Visit Provider Emergency Medicine
DX: K52.9 Noninfective gastroenteritis and colitis, unspecified (principal); I10 Essential (primary) hypertension; E86.0 Dehydration; K21.9 Gastro-esophageal reflux disease without esophagitis; Z79.899 Other long term (current) drug therapy; Z98.49 Cataract extraction status, unspecified eye; Z90.49 Acquired absence of other specified parts of digestive tract; Z98.51 Tubal ligation status
CPT/HCPCS: 74177; 80053; 81001; 83690; 85025; 96361; 96374; 96375; 99283; Q9967; A4216; J2405